=== PATIENT | female | born 1950 | race Hispanic/Latino ===

== ENCOUNTER 2017-11-23 11:32 | Emergency (ER) | payer OTHER ==
[2017-11-23 12:31] LABS: Absolute Lymphocytes (CBC) 2.1 K/uL (0.7-4.9); Absolute Monocytes 0.5 K/uL (0.1-1.3); Absolute Neutrophil 7.5 K/uL (1.8-8.0); Basophils % 0.8 % (0-1.3); Eosinophils % 1.4 % (0-4.4); Hematocrit 38.9 % (36.0-45.0); Lymphocytes % 20.4 % (15.3-44.8); MCH 28.2 pg (27.0-35.0); MCV 85.3 fL (80-100); MPV 7.7 fL (7.6-11.3); Monocytes % 4.9 % (3.3-12.3); RBC Red Blood Cell Count 4.56 M/uL (3.86-4.86)
[2017-11-23] MEDS ORDERED: MORPHINE 4 MG/ML SYR ONE (12:34)
[2017-11-23] MEDS ORDERED: ONDANSETRON 4 MG/2 ML VIAL ONE (12:34)
[2017-11-23 12:37] LABS: Protime INR 0.98
--- NOTE | 2017-11-23 12:54 | RAD REPORT ---
EXAM DESCRIPTION: RAD - Chest Single View - 11/23/2017 12:50 pm CLINICAL HISTORY: epigastric pain, SOB Chest pain. COMPARISON: Chest Pa And Lat (2 Views) dated 02/26/2017; Chest Single View dated 02/23/2017; CHEST SIN GLE VIEW dated 05/07/2015; CHEST SINGLE VIEW dated 05/06/2015 FINDINGS: Portable technique limits examination quality. The lungs are grossly clear. The heart is normal in size. No displaced fractures. IMPRESSION: No acute intrathoracic process suspected.
[2017-11-23 12:57] LABS: ALT/SGPT 16 U/L (12-78); AST/SGOT 14 U/L (15-37); Albumin 3.3 g/dL (3.4-5.0); Alkaline Phosphatase 132 U/L (45-117); BUN Blood Urea Nitrogen 20 mg/dL (7-18); Bicarbonate 28 mmol/L (21-32); Bilirubin Direct < 0.1 mg/dL (0-0.2); Bilirubin Total 0.4 mg/dL (0.2-1.0); CKMB Creatine Kinase MB 1.2 ng/mL (0.3-3.6); Creatine Phosphokinase 65 U/L (26-192); Glucose Level 290 mg/dL (74-106); Magnesium 1.7 mg/dL (1.8-2.4); Potassium 3.7 mmol/L (3.5-5.1); Protein, Total 7.2 g/dL (6.4-8.2); Sodium Level 133 mmol/L (136-145)
--- NOTE | 2017-11-23 14:35 | RAD REPORT ---
EXAM DESCRIPTION: CT - Abdomen Pelvis W Contrast - 11/23/2017 2:16 pm CLINICAL HISTORY: Abdominal pain. Epigastric pain for 3 weeks COMPARISON: 2014 TECHNIQUE: Computed axial tomography of the abdomen and pelvis was obtained. 100 cc Isovue-300 is ad ministered intravenously. Oral contrast was given. All CT scans are performed using dose optimization technique as appropriate and may include automated exposure control or mA/KV adjustment according to patient size. FINDINGS: The liver, spleen, pancreas, and right adrenal appear unremarkable. A 17 millimeter left adrenal mass is unchanged probably an adenoma A 4.8 centimeter left renal cyst is without significant change. Tiny right renal cyst is present. Diverticula stem from the colon without evidence of diverticulitis. The appendix is not seen. No stranding is noted adjacent to the cecum. An adnexal mass is not noted. Spondylosis involves lumbar spine resulting in spinal stenosis IMPRESSION: No acute abnormality is displayed
[2017-11-23] MEDS ORDERED: LIDOCAINE VISCOUS 2% SOLN 15 ML UDC ONE (14:59)
[2017-11-23] MEDS ORDERED: MAGNE/ALUM HYDROXD 30 ML UCUP ONE (14:59)
[2017-11-23] MEDS ORDERED: NA CHLORIDE 0.9% 500 ML ONE (15:56)
--- NOTE | 2017-11-23 16:23 | ER ---
Nurse's Notes [facility] Name: Mukul Larson Age: 67 yrs Sex: Female : 1950 Arrival Date: 11/23/2017 Time: 11:35 Bed 7 Private MD: Mick Mauricio E Diagnosis: Epigastric pain Presentation: 11/23 11:44 Presenting complaint: Patient states: epigastric pain x a few weeks, started off sv intermittently and now remains constant. Denies n/v/d/fever. Transition of care: patient was not received from another setting of care. Onset of symptoms was November 2017. Risk Assessment: Do you want to hurt yourself or someone else? Patient reports no desire to harm self or others. Care prior to arrival: None. 11:44 Method Of Arrival: Ambulatory sv 11:44 Acuity: APOLONIA 3 sv 11:59 Initial Sepsis Screen: Does the patient meet any 2 criteria? No. Patient's initial hj sepsis screen is negative. Does the patient have a suspected source of infection? No. Patient's initial sepsis screen is negative. Triage Assessment: 11:58 General: Appears in no apparent distress. uncomfortable, Behavior is calm, cooperative, hj appropriate for age. Pain: Complains of pain in abdomen. GI: Reports upper abdominal pain. 11:58 EENT: No signs and/or symptoms were reported regarding the EENT system. Neuro: Level of hj Consciousness is awake, alert, obeys commands, Oriented to person, place, time, situation, Appropriate for age. Cardiovascular: Capillary refill < 3 seconds Patient's skin is warm and dry. Respiratory: Airway is patent Respiratory effort is even, unlabored, Respiratory pattern is regular, symmetrical. : No signs and/or symptoms were reported regarding the genitourinary system. Derm: No signs and/or symptoms reported regarding the dermatologic system. Musculoskeletal: No signs and/or symptoms reported regarding the musculoskeletal system. Historical: - Allergies: 11:47 steroids; sv - PMHx: 11:47 Anxiety; CAD; CHF; CVA; Diabetes - NIDDM; High Cholesterol; Hypertension; sv - PSHx: 11:47 carotid stents; leg stents; Cholecystectomy; sv - Immunization history:: Adult Immunizations up to date. - Social history:: Smoking status: Patient uses tobacco products, denies chronic smoking, but will smoke occasionally. - Ebola Screening: : No symptoms or risks identified at this time. Screenin:58 Abuse screen: Denies threats or abuse. Denies injuries from another. Nutritional hj screening: No deficits noted. Tuberculosis screening: No symptoms or risk factors identified. Fall Risk None identified. Assessment: 11:59 GI: Bowel sounds present X 4 quads. Abdomen is tender to palpation. hj 12:30 Reassessment: Patient and/or family updated on plan of care and expected duration. Pain hj level reassessed. Patient is alert, oriented x 3, equal unlabored respirations, skin warm/dry/pink. awaiting results;. 13:16 Reassessment: called CT ; finished contrast 1244;. hj 14:30 Reassessment: Patient and/or family updated on plan of care and expected duration. Pain hj level reassessed. Patient is alert, oriented x 3, equal unlabored respirations, skin warm/dry/pink. Patient states feeling better. 15:11 Reassessment: Patient and/or family updated on plan of care and expected duration. Pain hj level reassessed. Patient is alert, oriented x 3, equal unlabored respirations, skin warm/dry/pink. family with pt; Patient states symptoms have improved. 15:42 Reassessment: Patient and/or family updated on plan of care and expected duration. Pain hj level reassessed. Patient is alert, oriented x 3, equal unlabored respirations, skin warm/dry/pink. awaiting POC;. Vital Signs: 11:47 BP 109 / 53; Pulse 80; Resp 18; Temp 98.2; Pulse Ox 94% ; Weight 56.7 kg; Height 4 ft. sv 11 in. (149.86 cm); Pain 9/10; 12:30 BP 100 / 60; Pulse 67; Resp 18; Pulse Ox 100% on R/A; hj 13:15 BP 106 / 90; Pulse 79; Resp 18; Pulse Ox 100% on R/A; hj 14:30 BP 99 / 69; Pulse 69; Resp 18; Pulse Ox 96% on R/A; hj 15:11 BP 110 / 70; Pulse 65; Resp 18; Pulse Ox 98% on R/A; hj 15:43 BP 100 / 69; Pulse 69; Resp 18; Pulse Ox 97% on R/A; hj 16:20 BP 99 / 79; Pulse 70; Resp 18; Pulse Ox 97% on R/A; hj 11:47 Body Mass Index 25.25 (56.70 kg, 149.86 cm) sv ED Course: 11:35 Patient arrived in ED. mr 11:36 Mick Mauricio MD is Private Physician. mr 11:46 Triage completed. sv 11:48 Arm band placed on left wrist. sv 11:53 Foreign Parker PA is PHCP. jmm 11:53 Theodore Cosby MD is Attending Physician. jmm 11:55 Foreign Parker PA is PHCP. jmm 11:55 Theodore Cosby MD is Attending Physician. jmm 11:58 Ja Guaman, CONCEPCIÓN is Primary Nurse. hj 11:59 Patient has correct armband on for positive identification. Placed in gown. Bed in low hj position. Call light in reach. Side rails up X 1. 12:40 EKG done, by x ray technician. reviewed by Foreign MÁRQUEZ. at1 12:40 Inserted saline lock: 20 gauge in left forearm, using aseptic technique. hj 12:46 X-ray completed. Portable x-ray completed in exam room. Patient tolerated procedure mh1 well. 12:50 XRAY Chest (1 view) In Process Unspecified. EDMS 14:[address] via wheelchair. nj 14:14 CT completed. Patient tolerated procedure well. Patient moved back from CT. nj 14:17 CT Abd/Pelvis - W/Contrast In Process Unspecified. EDMS 16:21 Oneil Jorgensen MD is Referral Physician. jmm 16:29 No provider procedures requiring assistance completed. IV discontinued, intact, hj bleeding controlled, No redness/swelling at site. Pressure dressing applied. Administered Medications: 12:35 Drug: morphine 2 mg Route: IVP; Site: right forearm; aj 15:14 Follow up: Response: No adverse reaction; Pain is decreased hj 12:36 Drug: Zofran 4 mg Route: IVP; Site: right forearm; aj 15:13 Follow up: Response: No adverse reaction; Nausea is decreased hj 14:45 Drug: GI Cocktail without - (Maalox Suspension 30 ml, Lidocaine Liquid 2 % 15 hj ml) Route: PO; 15:13 Follow up: Response: No adverse reaction hj 15:50 Drug: NS 0.9% 500 ml Route: IV; Rate: bolus; Site: right forearm; 15:57 Follow up: IV Status: Completed infusion Outcome: 16:22 Discharge ordered by MD. sea 16:29 Discharged to home via wheelchair, with family. 16:29 Condition: stable 16:29 Discharge instructions given to patient, family, Instructed on discharge instructions, follow up and referral plans. medication usage, Demonstrated understanding of instructions, follow-up care, medications, Prescriptions given X 1. 16:38 Patient left the ED. Signatures: Dispatcher [employer] EDVianey Fink, RN Yadira Abdi, CONCEPCIÓN RN Foreign Damon PA PA jmm Rivera, Maria mr RlCarissa 1 Yadira mera, golf professional EKG [facility]1 Ja Guaman RN RN hj Jordan, Nathan nj
--- NOTE | 2017-11-23 16:23 | EDPHYS ---
Physician Documentation [facility] Name: Mukul Larson Age: 67 yrs Sex: Female : 1950 Arrival Date: 11/23/2017 Time: 11:35 Bed 7 Private MD: Mick Mauricio E ED Physician Theodore Cosby HPI: 11/23 12:10 This 67 yrs old Female presents to ER via Ambulatory with complaints of jmm Abdominal Pain. 12:10 The patient presents with abdominal pain in the epigastric area. Onset: The jmm symptoms/episode began/occurred gradually, 2 week(s) ago. The symptoms do not radiate. Associated signs and symptoms: Pertinent positives: diarrhea. The symptoms are described as achy. This is a 67 year olf female with a history of epigastric abdominal pain and and diarrhea beginning approx 3 weeks ago. Patient states her symptoms are worsened after eating. Surgical history includes appendectomy and cholecystectomy. . Historical: - Allergies: 11:47 steroids; sv - PMHx: 11:47 Anxiety; CAD; CHF; CVA; Diabetes - NIDDM; High Cholesterol; Hypertension; sv - PSHx: 11:47 carotid stents; leg stents; Cholecystectomy; sv - Immunization history:: Adult Immunizations up to date. - Social history:: Smoking status: Patient uses tobacco products, denies chronic smoking, but will smoke occasionally. - Ebola Screening: : No symptoms or risks identified at this time. ROS: 12:10 Constitutional: Negative for fever, chills, and weight loss, Cardiovascular: Negative jmm for chest pain, palpitations, and edema. 12:10 Back: Negative for injury and pain, : Negative for injury, bleeding, discharge, and swelling, MS/Extremity: Negative for injury and deformity, Skin: Negative for injury, rash, and discoloration, Neuro: Negative for headache, weakness, numbness, tingling, and seizure. 12:10 Respiratory: Positive for shortness of breath. 12:10 Abdomen/GI: Positive for abdominal pain, diarrhea. 12:10 All other systems are negative. Exam: 12:10 Head/Face: atraumatic. Chest/axilla: Normal chest wall appearance and motion. jmm Nontender with no deformity. No lesions are appreciated. Cardiovascular: Regular rate and rhythm. No gallops, murmurs, or rubs. Full/Equal distal pulses. Respiratory: Lungs have equal breath sounds bilaterally, clear to auscultation. No rales, rhonchi or wheezes noted. No increased work of breathing, no retractions or nasal flaring. 12:10 Constitutional: The patient appears in no acute distress, alert, awake. 12:10 Abdomen/GI: Inspection: abdomen appears normal, Bowel sounds: normal, Palpation: soft, mild abdominal tenderness, in the epigastric area. 12:10 Back: ROM is normal. 12:10 Musculoskeletal/extremity: ROM: intact in all extremities. 12:10 Skin: Appearance: Color: normal in color. 12:10 Neuro: Orientation: is normal, Mentation: is normal, Memory: is normal. 12:10 Psych: Behavior/mood is pleasant, cooperative. Vital Signs: 11:47 BP 109 / 53; Pulse 80; Resp 18; Temp 98.2; Pulse Ox 94% ; Weight 56.7 kg; Height 4 ft. sv 11 in. (149.86 cm); Pain 9/10; 12:30 BP 100 / 60; Pulse 67; Resp 18; Pulse Ox 100% on R/A; hj 13:15 BP 106 / 90; Pulse 79; Resp 18; Pulse Ox 100% on R/A; hj 14:30 BP 99 / 69; Pulse 69; Resp 18; Pulse Ox 96% on R/A; hj 15:11 BP 110 / 70; Pulse 65; Resp 18; Pulse Ox 98% on R/A; hj 15:43 BP 100 / 69; Pulse 69; Resp 18; Pulse Ox 97% on R/A; hj 16:20 BP 99 / 79; Pulse 70; Resp 18; Pulse Ox 97% on R/A; hj 11:47 Body Mass Index 25.25 (56.70 kg, 149.86 cm) sv MDM: 12:05 Patient medically screened. [facility] 16:00 Data reviewed: vital signs, nurses notes, lab test result(s), EKG, radiologic studies. [facility] 17:01 Counseling: I had a detailed discussion with the patient and/or guardian regarding: the [facility] historical points, exam findings, and any diagnostic results supporting the discharge/admit diagnosis, lab results, radiology results. Response to treatment: the patient's symptoms have resolved after treatment. ED course: The patients symptoms are relieved with GI cocktail. Imaging studies negative. Cardiac enzymes and EKG unremarkable. I do not currently suspect atypical cardiac presentation. Patient is advised to follow up with GI and family otherwise given strict return precautions for worsening symptoms. Family understood and agrees with the plan of care. . 11/23 12:07 Order name: Basic Metabolic Panel; Complete Time: 12:58 [facility] 11/23 12:07 Order name: CBC with Diff; Complete Time: 12:49 [facility] 11/23 12:07 Order name: Ckmb; Complete Time: 12:58 [facility] 11/23 12:07 Order name: CPK; Complete Time: 12:58 [facility] 11/23 12:07 Order name: LFT's; Complete Time: 12:58 [facility] 11/23 12:07 Order name: Magnesium; Complete Time: 12:58 [facility] 11/23 12:07 Order name: PT-INR; Complete Time: 12:49 [facility] 11/23 12:07 Order name: Ptt, Activated; Complete Time: 12:49 [facility] 11/23 12:07 Order name: Troponin (emerg Dept Use Only); Complete Time: 12:58 [facility] 11/23 12:07 Order name: XRAY Chest (1 view); Complete Time: 12:58 [facility] 11/23 12:07 Order name: CT Abd/Pelvis - W/Contrast; Complete Time: 14:44 [facility] 11/23 12:07 Order name: EKG; Complete Time: 12:07 [facility] 11/23 12:07 Order name: Cardiac monitoring; Complete Time: 12:27 [facility] 11/23 12:07 Order name: EKG - Nurse/Tech; Complete Time: 12:27 [facility] 11/23 12:07 Order name: IV Saline Lock; Complete Time: 12:31 [facility] 11/23 12:07 Order name: Labs collected and sent; Complete Time: 12:31 [facility] 11/23 12:07 Order name: O2 Per Protocol; Complete Time: 12:27 [facility] 11/23 12:07 Order name: O2 Sat Monitoring; Complete Time: 12:27 [facility] 11/23 12:07 Order name: Urine Dipstick-Ancillary (obtain specimen); Complete Time: 12:27 [facility] Administered Medications: 12:35 Drug: morphine 2 mg Route: IVP; Site: right forearm; aj 15:14 Follow up: Response: No adverse reaction; Pain is decreased hj 12:36 Drug: Zofran 4 mg Route: IVP; Site: right forearm; aj 15:13 Follow up: Response: No adverse reaction; Nausea is decreased hj 14:45 Drug: GI Cocktail without - (Maalox Suspension 30 ml, Lidocaine Liquid 2 % 15 hj ml) Route: PO; 15:13 Follow up: Response: No adverse reaction hj 15:50 Drug: NS 0.9% 500 ml Route: IV; Rate: bolus; Site: right forearm; hj 15:57 Follow up: IV Status: Completed infusion hj Disposition: 18:29 Co-signature as Attending Physician, Theodore Cosby MD. rn Disposition: 11/23/17 16:22 Discharged to Home. Impression: Epigastric pain. - Condition is Stable. - Discharge Instructions: Abdominal Pain, Adult. - Prescriptions for Pepcid 20 mg Oral Tablet - take 1 tablet by ORAL route every 12 hours for 10 days; 20 tablet. - Medication Reconciliation Form, Thank You Letter, Antibiotic Education, Prescription Opioid Use form. - Follow up: Oneil Jorgensen MD; When: 2 - 3 days; Reason: Continuance of care. Signatures: Dispatcher [employer] EDVianey Fink RN Yadira Abdi RN Foreign Young PA PA [facility] Theodore Cosby MD MD rn Joaquin, Henry, RN RN Corrections: (The following items were deleted from the chart) 16:38 16:22 11/23/2017 16:22 Discharged to Home. Impression: Epigastric pain. Condition is hj Stable. Forms are Medication Reconciliation Form, Thank You Letter, Antibiotic Education, Prescription Opioid Use. Follow up: Oneil Jorgensen; When: 2 - 3 days; Reason: Continuance of care. sea
[2017-11-23 17:19] VITALS: TEMP 98.2
[2017-11-23 17:25] VITALS: O2SAT 97
[2017-11-23 17:27] VITALS: BP 99/79
--- NOTE | 2017-11-23 17:32 | EKG ---
Test Date: 2017-11-23 Test Time: 12:18:21 Supervisor Statement Clerks: THI MEASUREMENT RESULTS: Intervals: Rate: 76 MS: 134 QRSD: 72 QT: 400 QTc: 450 [place]: P: 61 MS: 134 QRS: 41 T: 69 INTERPRETIVE STATEMENTS: Normal sinus rhythm Normal ECG Compared to ECG 02/23/2017 16:31:00 Sinus bradycardia no longer present Electronically Signed On 11-23-17 17:30:20 CDT by Adam Lynch
== END 2017-11-23 16:38 | disposition home or self-care (01) ==
LOC: ER 11:32
DX: R10.13 Epigastric pain (principal); I10 Essential (primary) hypertension; Z72.0 Tobacco use; Z88.8 Allergy status to other drugs, medicaments and biological substances; Z95.818 Presence of other cardiac implants and grafts
CPT/HCPCS: 36415; 71045; 74177; 80048; 80076; 82550; 82553; 83735; 84484; 85025; 85610; 85730; 93005; 96374; 96375; 99284; J2405; Q9967

== ENCOUNTER 2021-01-02 17:42 | Emergency (ER) | payer OTHER ==
--- OUTSIDE RECORDS SUMMARY | 2021-01-02 17:44 | XMS REPORT | Continuity of Care Document ---
:1950 Author Organization [facility] t Address [address] [place] [address] Care Team Providers Name Role Phone Doctor Unassigned, Name Attending Clinician Unavailable Problems This patient has no known problems. Allergies, Adverse Reactions, Alerts This patient has no known allergies or adverse reactions. Medications This patient has no known medications. Procedures This patient has no known procedures. Encounters Start End Encounter Admission Attending Care Care Encounter Source Date/Time Date/Time Type Type Clinicians Facility Department ID 2019-12-04 2019-12-04 Orders Doctor NATE [id number] 00:00:00 00:00:00 Only UnassignedLUPILLO [id number] [place] [facility] [id number] Results This patient has no known results.
[2021-01-02] MEDS ORDERED: NA CHLORIDE 0.9% 1,000 ML ONE (18:26)
[2021-01-02] MEDS ORDERED: DIPHENHYDRAMINE 50 MG/ML VIAL ONE (18:26)
[2021-01-02] MEDS ORDERED: FAMOTIDINE 20 MG/2 ML VIAL IV ONE (18:26)
[2021-01-02] MEDS ORDERED: EPINEPHRINE/PF 1 MG/ML AMP ONE (18:26)
[2021-01-02] MEDS ORDERED: DIAZEPAM 10 MG/2 ML INJ SYRINGE ONE ×2 (19:01→20:11)
[2021-01-02] MEDS ORDERED: dexAMETHasone 10 MG/ML VIAL ONE (19:01)
--- NOTE | 2021-01-02 22:42 | EDPHYS ---
Physician Documentation [facility] Name: Mukul Larson Age: 70 yrs Sex: Female : 1950 Arrival Date: 01/02/2021 Time: 17:44 Bed 18 Private MD: ED Physician Theodore Cosby HPI: 01/02 17:58 This 70 yrs old Female presents to ER via Ambulatory with complaints of Wasp jmm Sting, Allergic Reaction. 17:58 Onset: The symptoms/episode began/occurred acutely, 1.5 hour(s) ago. jmm 17:58 Associated signs and symptoms: Pertinent positives: hives, shortness of breath, jmm swelling. Possible causes: wasp sting. The patient has experienced a previous episode. Historical: - Allergies: 17:53 steroids; ll1 17:53 PENICILLINS; ll1 - PMHx: 17:53 CVA; Diabetes - NIDDM; High Cholesterol; Hypertension; CHF; Anxiety; CAD; ll1 - PSHx: 17:53 None; ll1 - Immunization history:: Client reports having NOT received the Covid vaccine. Flu vaccine is not up to date. - Social history:: Smoking status: Patient reports the use of cigarette tobacco products, smokes one-half pack cigarettes per day. ROS: 17:58 Constitutional: Negative for fever, chills, and weight loss, Cardiovascular: Negative jmm for chest pain, palpitations, and edema. 17:58 ENT: Positive for sore throat. 17:58 Respiratory: Positive for shortness of breath. 17:58 Abdomen/GI: Negative for vomiting. 17:58 All other systems are negative. Exam: 17:58 Constitutional: This is a well developed, well nourished patient who is awake, alert, jmm and in no acute distress. Head/Face: atraumatic. Eyes: EOMI, no conjunctival erythema appreciated ENT: Moist Mucus Membranes Neck: Trachea midline, Supple Chest/axilla: Normal chest wall appearance and motion. Cardiovascular: Regular rate and rhythm. No edema appreciated Respiratory: Normal respirations, no respiratory distress appreciated Abdomen/GI: Non distended, soft Back: Normal ROM Skin: General appearance color normal MS/ Extremity: Moves all extremities, no obvious deformities appreciated, no edema noted to the lower extremities Neuro: Awake and alert, normal gait Psych: Behavior is normal, Mood is normal, Patient is cooperative and pleasant Vital Signs: 17:49 BP 91 / 53; Pulse 77; Resp 22; Temp 97.6; Pulse Ox 95% ; Weight 50.8 kg; Height 4 ft. ll1 10 in. (147.32 cm); Pain 9/10; 19:33 BP 121 / 64; Pulse 74; Resp 20; Temp 97.6; Pulse Ox 99% on R/A; em 21:57 BP 116 / 57; Pulse 67; Resp 22; Pulse Ox 95% on R/A; Pain 0/10; ld1 17:49 Body Mass Index 23.41 (50.80 kg, 147.32 cm) ll1 MDM: 18:04 Patient medically screened. sea 22:40 Data reviewed: vital signs, nurses notes. Counseling: I had a detailed discussion with sea the patient and/or guardian regarding: the historical points, exam findings, and any diagnostic results supporting the discharge/admit diagnosis, the need for outpatient follow up, to return to the emergency department if symptoms worsen or persist or if there are any questions or concerns that arise at home. ED course: No edema is no edema is appreciated to the posterior pharynx. Patient observed for approximately 4 and half hours with no adverse reaction after administration of epinephrine. Patient will be prescribed an EpiPen along with steroids and advised to follow-up with PCP or mobility architect for further evaluation. Patient is otherwise given strict return precautions. Patient understood and agrees with plan of care. 01/02 17:58 Order name: Saline Lock; Complete Time: 18:25 [facility] 01/02 18:18 Order name: Cardiac monitoring; Complete Time: 18:25 [facility] Administered Medications: 18:15 Drug: EPINEPHrine 1mg/mL 1:1,000 0.4 ml Route: Sub-Q; Site: abdomen; bp 18:44 Follow up: Response: No adverse reaction bp 18:15 Drug: NS 0.9% 1000 ml Route: IV; Rate: 1 bolus; Site: right forearm; bp 19:35 Follow up: IV Status: Completed infusion; IV Intake: 1000ml em 18:15 Drug: diphenhydrAMINE 25 mg Route: IVP; Site: right forearm; bp 18:44 Follow up: Response: No adverse reaction bp 18:15 Drug: Pepcid (famotidine) 20 mg Route: IVP; Site: right forearm; bp 18:44 Follow up: Response: No adverse reaction bp 18:30 Drug: Decadron - Dexamethasone 10 mg Route: IVP; Site: right forearm; bp 18:45 Follow up: Response: No adverse reaction bp 18:30 Drug: NS 0.9% 500 ml Route: IV; Rate: bolus; Site: right forearm; bp 19:35 Follow up: IV Status: Completed infusion; IV Intake: 500ml em 18:40 Drug: Valium (diazepam) 2 mg Route: IVP; Site: right forearm; bp 18:45 Follow up: Response: No adverse reaction bp 19:45 Not Given (Physician Discretion): propranoloL 10 mg PO once em 19:45 Not Given (Physician Discretion): rOPINIRole 0.25 mg PO once em 19:54 Not Given (Other Intervention Used): rOPINIRole 5 mg PO once em 19:54 Drug: Valium (diazepam) 5 mg Route: IVP; Site: right forearm; em Disposition Summary: 01/02/21 22:41 Discharge Ordered Location: Home [facility] Condition: Stable [facility] Diagnosis - Allergic Reaction [facility] Followup: [facility] - With: Private Physician - When: 2 - 3 days - Reason: Recheck today's complaints, Continuance of care, Re-evaluation by your physician Discharge Instructions: - Discharge Summary Sheet [facility] - Bee, Wasp, or Hornet Sting, Adult [facility] Forms: - Medication Reconciliation Form [facility] - Thank You Letter [facility] - Antibiotic Education [facility] - Prescription Opioid Use [facility] Prescriptions: - EpiPen 0.3 mg/0.3 mL Injection auto-injector - inject 0.3 milliliter by INTRAMUSCULAR route as directed as needed for [facility] anaphylaxis; 1 Unspecified; Refills: 0, Product Selection Permitted - Hydroxyzine HCl 25 mg Oral Tablet - take 1 tablet by ORAL route every 6 hours As needed; 30 tablet; Refills: 0, [facility] Product Selection Permitted - Prednisone 20 mg Oral Tablet - take 3 tablets by ORAL route once daily for 5 days; 15 tablet; Refills: 0, [facility] Product Selection Permitted Signatures: Foreign aPrker PA PA jmm Munoz, Edgar RN Mayo Ceballos RN Katina Blakely RN RN ll1
--- NOTE | 2021-01-02 22:42 | ER ---
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 Rash with hives to ll1 back. + SOB, tried inhaler, didn't help a lot. Coronavirus screen: Client denies travel out of the [place] in the last 14 days. At this time, the client does not indicate any symptoms associated with coronavirus-19. Ebola Screen: Patient denies travel to an Ebola-affected area in the 21 days before illness onset. Onset: The symptoms/episode began/occurred 1.5 hour(s) ago. Anaphylaxis evaluation, the patient reports or I have noted the following symptoms which indicate a significant risk of anaphylaxis: hypotension lightheadedness shortness of breath tachypnea urticaria. Initial Sepsis Screen: Does the patient meet any 2 criteria? RR > 20 per min. No. Patient's initial sepsis screen is negative. Does the patient have a suspected source of infection? Yes: Skin breakdown/wound. Risk Assessment: Do you want to hurt yourself or someone else? Patient reports no desire to harm self or others. Onset of symptoms was January 02, 2021. 17:49 Method Of Arrival: Ambulatory ll1 17:49 Acuity: APOLONIA 2 ll1 Triage Assessment: 18:00 General: Appears distressed, uncomfortable, Behavior is cooperative, appropriate for bp age, anxious. Pain: Denies pain. EENT: No deficits noted. Neuro: No deficits noted. Cardiovascular: No deficits noted. Respiratory: Airway is patent Respiratory effort is even, unlabored, Respiratory pattern is regular, symmetrical. GI: No signs and/or symptoms were reported involving the gastrointestinal system. : No signs and/or symptoms were reported regarding the genitourinary system. Derm: Rash noted that is urticaria. Musculoskeletal: No deficits noted. Historical: - Allergies: 17:53 steroids; ll1 17:53 PENICILLINS; ll1 - PMHx: 17:53 CVA; Diabetes - NIDDM; High Cholesterol; Hypertension; CHF; Anxiety; CAD; ll1 - PSHx: 17:53 None; ll1 - Immunization history:: Client reports having NOT received the Covid vaccine. Flu vaccine is not up to date. - Social history:: Smoking status: Patient reports the use of cigarette tobacco products, smokes one-half pack cigarettes per day. Screenin:26 Abuse screen: Denies threats or abuse. Denies injuries from another. Nutritional bp screening: No deficits noted. Tuberculosis screening: No symptoms or risk factors identified. Fall Risk None identified. Assessment: 18:00 General: SEE TRIAGE NOTE. Respiratory: Airway is patent Respiratory effort is even, bp unlabored, Respiratory pattern is regular, Breath sounds are clear bilaterally. 19:20 Reassessment: reports restless legs, takes ropinirole but we do not carry medication, em provider notified. 21:57 Reassessment: Patient appears in no apparent distress at this time. Patient is alert, ld1 oriented x 3, equal unlabored respirations, skin warm/dry/pink. 23:09 Reassessment: Patient appears in no apparent distress at this time. Patient and/or ld1 family updated on plan of care and expected duration. Pain level reassessed. Patient is alert, oriented x 3, equal unlabored respirations, skin warm/dry/pink. Vital Signs: 17:49 BP 91 / 53; Pulse 77; Resp 22; Temp 97.6; Pulse Ox 95% ; Weight 50.8 kg; Height 4 ft. ll1 10 in. (147.32 cm); Pain 9/10; 19:33 BP 121 / 64; Pulse 74; Resp 20; Temp 97.6; Pulse Ox 99% on R/A; em 21:57 BP 116 / 57; Pulse 67; Resp 22; Pulse Ox 95% on R/A; Pain 0/10; ld1 17:49 Body Mass Index 23.41 (50.80 kg, 147.32 cm) ll1 ED Course: 17:44 Patient arrived in ED. ds1 17:52 Triage completed. ll1 17:52 Arm band placed on. ll1 17:57 Foreign Parker PA is PHCP. [facility] 17:57 Theodore Cosby MD is Attending Physician. [facility] 17:57 Patient placed in an exam room, on a stretcher. ll1 18:00 Mayo Espinosa, RN is Primary Nurse. bp 18:25 Inserted saline lock: 20 gauge in right forearm, using aseptic technique. bp 18:26 Patient has correct armband on for positive identification. Bed in low position. Call bp light in reach. Side rails up X2. Adult w/ patient. 19:30 Primary Nurse role handed off by Mayo Espinosa RN mw2 19:30 Mayo Espinosa RN is Primary Nurse. bp 23:09 No provider procedures requiring assistance completed. IV discontinued, intact, ld1 bleeding controlled, No redness/swelling at site. Administered Medications: 18:15 Drug: EPINEPHrine 1mg/mL 1:1,000 0.4 ml Route: Sub-Q; Site: abdomen; bp 18:44 Follow up: Response: No adverse reaction bp 18:15 Drug: NS 0.9% 1000 ml Route: IV; Rate: 1 bolus; Site: right forearm; bp 19:35 Follow up: IV Status: Completed infusion; IV Intake: 1000ml em 18:15 Drug: diphenhydrAMINE 25 mg Route: IVP; Site: right forearm; bp 18:44 Follow up: Response: No adverse reaction bp 18:15 Drug: Pepcid (famotidine) 20 mg Route: IVP; Site: right forearm; bp 18:44 Follow up: Response: No adverse reaction bp 18:30 Drug: Decadron - Dexamethasone 10 mg Route: IVP; Site: right forearm; bp 18:45 Follow up: Response: No adverse reaction bp 18:30 Drug: NS 0.9% 500 ml Route: IV; Rate: bolus; Site: right forearm; bp 19:35 Follow up: IV Status: Completed infusion; IV Intake: 500ml em 18:40 Drug: Valium (diazepam) 2 mg Route: IVP; Site: right forearm; bp 18:45 Follow up: Response: No adverse reaction bp 19:45 Not Given (Physician Discretion): propranoloL 10 mg PO once em 19:45 Not Given (Physician Discretion): rOPINIRole 0.25 mg PO once em 19:54 Not Given (Other Intervention Used): rOPINIRole 5 mg PO once em 19:54 Drug: Valium (diazepam) 5 mg Route: IVP; Site: right forearm; em Intake: 19:35 IV: 500ml; Total: 500ml. em 19:35 IV: 1000ml; Total: 1500ml. em Outcome: 22:41 Discharge ordered by . sea 23:09 Discharged to home via wheelchair, with family. ld1 23:09 Condition: stable 23:09 Discharge instructions given to patient, family, Instructed on discharge instructions, follow up and referral plans. medication usage, Demonstrated understanding of instructions, follow-up care, medications, Prescriptions given X 3. 23:10 Patient left the ED. ld1 Signatures: Foreign Parker PA PA jmm Munoz, Edgar, RN RN Patricia Mariscal ds1 Mayo Espinosa RN RN Pavan Morales mw2 Katina Iverson RN RN ll1 Isaeblla Conde RN RN ld1
[2021-01-02 23:31] VITALS: TEMP 97.6
[2021-01-02 23:35] VITALS: BP 116/57; O2SAT 95
== END 2021-01-02 23:10 | disposition home or self-care (01) ==
LOC: ER 17:42
DX: T63.461A Toxic effect of venom of wasps, accidental (unintentional), initial encounter (principal); T78.49XA Other allergy, initial encounter; F17.210 Nicotine dependence, cigarettes, uncomplicated; Z86.73 Personal history of transient ischemic attack (TIA), and cerebral infarction without residual deficits; E11.9 Type 2 diabetes mellitus without complications; E78.00 Pure hypercholesterolemia, unspecified; I11.0 Hypertensive heart disease with heart failure; I50.9 Heart failure, unspecified; F41.9 Anxiety disorder, unspecified; I25.10 Atherosclerotic heart disease of native coronary artery without angina pectoris
CPT/HCPCS: J0171; J1200; J3360 ×2; J1100; J7030

== ENCOUNTER 2021-03-07 12:10 | Day surgery (SDC) | payer OTHER ==
--- NOTE | 2021-03-04 16:13 | RAD REPORT ---
EXAM DESCRIPTION: RAD - Chest Pa And Lat (2 Views) - 03/04/2021 4:07 pm CLINICAL HISTORY: pre-op Chest pain. COMPARISON: Chest Pa And Lat (2 Views) dated 08/05/2020; Chest Single View dated 11/23/2017; Chest Pa A nd Lat (2 Views) dated 02/26/2017; Chest Single View dated 02/23/2017 FINDINGS: The lungs are diffusely emphysematous but clear. The heart is normal in size. No displaced fractures. IMPRESSION: Prominent COPD.
[2021-03-04 16:40] LABS: Hematocrit 40.7 % (36.0-45.0); RBC Red Blood Cell Count 4.46 M/uL (3.86-4.86)
[2021-03-04 16:41] LABS: Absolute Lymphocytes (CBC) 3.5 K/uL (0.7-4.9); Lymphocytes % 32.8 % (15.3-44.8); MPV 8.4 fL (7.6-11.3)
[2021-03-04 16:44] LABS: Protime INR 0.97
[2021-03-04 16:50] LABS: Potassium 4.5 mmol/L (3.5-5.1)
[2021-03-07] MEDS ORDERED: NA CHLORIDE 0.9% 500 ML ONE ×2 (13:49→18:30)
[2021-03-07] MEDS ORDERED: HEPA 1000U/500MLS 2,000 UNIT/1,000 ML BAG IV ONE (15:19)
[2021-03-07] MEDS ORDERED: LIDOCAINE 1% 20 ML MDV ONE (15:19)
[2021-03-07] MEDS ORDERED: MIDAZOLAM HCL 2 MG/2 ML INJ ONE (15:27)
[2021-03-07] MEDS ORDERED: FENTANYL CITR 100 MCG/2 ML ONE (15:27)
[2021-03-07] MEDS ORDERED: ATROPINE SULF 1 MG/10 ML SYR IV ONE (15:28)
[2021-03-07] MEDS ORDERED: HEPARIN 5000 UNIT/ML 1 ML VIAL ONE (15:28)
[2021-03-07] MEDS ORDERED: VERAPAMIL HCL 10 MG/4 ML VIAL IV ONE (15:28)
[2021-03-07] MEDS ORDERED: CLOPIDOGREL 75 MG TABLET ONE (16:30)
[2021-03-07] MEDS ORDERED: HEPA 1000U/500MLS 1,000 UNIT/500 ML BAG IV ONE (16:33)
[2021-03-07] MEDS ORDERED: HYDRALAZINE HCL 20 MG/ML VIAL ONE (17:06)
--- NOTE | 2021-03-07 19:26 | OP ---
Date of Procedure: 03/07/2021 Surgeon: ADALBERTO ALEMAN Procedures Performed: 1.Selective coronary angiogram. 2.PCI of severe ostial proximal and mid RCA stenosis using 3.5 x 38 mm Synergy drug-eluting stent, o verlapped proximally with another 3.5 x 60 mm Synergy drug-eluting stent inflated to high pressure to give a size of 4 mm stent. 3.Distal abdominal aortogram with runoff of both lower extremities and peripheral angiogram. Indications: 1.Unstable angina. 2.Severe peripheral vascular disease with claudication. Complications: None. Bleeding: Less than 20 mL. Anesthesia: Total sedation time was 95 minutes. Description Of Procedure: After risks, benefits, and alternatives were explained, the patient agreed to procedure and signed informed consent. The patient was brought to the cardiac catheterization la boratory, prepped and draped in usual sterile fashion. Then, I accessed radial artery and tried to p ut on the wire up to the aorta; however, there was significant tortuosity to the radial access and ob tained right femoral artery access with ultrasound guidance and placed a 6-Thai [place] sheath and took a pigtail catheter diagnostic into the distal aorta and the aortogram was done and runoff all t he way to the feet. Then, I took a 6-Thai JR4 catheter into the aortic root, engaged the RCA, took standard views and exchanged for 6-Thai JL4 catheter, engaged the left main, took standard views. We then moved towards the intervention. Intervention Details: We gave systemic heparin to assure ACT level above 250 throughout the procedur e and we exchanged for a 6-Thai JR4 guide, engaged the RCA. I used the side holes guide due to sev ere ostial disease and took short Run-Through wire into the RCA and placed distally. Subsequently, w e pre-dilated lesions using NC balloon and cutting balloon due to heavily calcified lesions. We then placed a 3.5 x 38 mm Synergy drug-eluting stent, overlapped proximally with a 3.5 x [address] ug-eluting stent with good results. I removed the catheter and the wires, and the sheath was removed and manual pressure was applied with good hemostasis. Findings: 1.Left main; normal, moderate size. 2.LAD; small vessel with diffuse 10% to 20% stenosis, but no significant disease. 3.The left circumflex is very small. No significant disease. Has luminal irregularities. 4.RCA; ostial 80% and there is a proximal stent with diffuse 70% to 80% iSR and then focal heavily c alcified 80% stenosis, status post successful PCI as above. Findings of the peripheral angiogram; distal aorta, severe stenosis about 80%. Then, the right commo n iliac ostial either has about diffuse 60% to 70% and both in the right and the left common iliac al so has diffuse 50% to 60%. Both common femoral arteries have diffuse 50% to 60% and then the left an d right SFAs bilaterally are totally occluded in the ostium. There is a long stent on the left SFA t hat is totally occluded. Then, the vessels reconstitutes above the knee and there is a 3-vessel run with slow flow. However, there is a flow through the 3 vessels below the knee bilaterally from the c ollaterals. Conclusion: 1.Severe RCA disease, status post successful PCI as above. 2.Severe peripheral vascular disease including distal aorta and bilateral SFAs. We will refer to [facility] for further management on this matter. Plan: Aspirin, Plavix, and high-dose statin. Follow up with me in 1-2 weeks in the office. /GISELA Voice ID: [id number] Report ID: [id number]
[2021-03-07] MEDS ORDERED: NITROGLYCERIN 0.4 MG/TAB SL PRN (23:13)
[2021-03-07] MEDS ORDERED: ACETAMINOPHEN 325 MG TABLET PO PRN (23:13)
[2021-03-07] MEDS ORDERED: HOME MED 1 EA UNK IH PRN (23:23)
[2021-03-07] MEDS ORDERED: NA CHLORIDE 0.9% 1,000 ML IV SCH (23:45)
[2021-03-07] MEDS ORDERED: BUDESONIDE 0.5 MG/2 ML NEB IH PRN (23:48)
[2021-03-08 08:25] VITALS: BP 156/69
[2021-03-08 08:52] VITALS: TEMP 97.1
[2021-03-08 08:53] VITALS: O2SAT 100
[2021-03-08] MEDS ORDERED: hydroCHLOROthiazide 12.5 MG CAP PO SCH (09:00)
[2021-03-08] MEDS ORDERED: ASPIRIN 81 MG CHEWABLE TABLET PO SCH (09:00)
[2021-03-08] MEDS ORDERED: lisinopriL 10 MG TAB PO SCH (09:00)
[2021-03-08] MEDS ORDERED: METOPROLOL TAR 50 MG TAB PO SCH (09:00)
[2021-03-08] MEDS ORDERED: CLOPIDOGREL 75 MG TABLET PO SCH (09:00)
[2021-03-08] MEDS ORDERED: ROPINIROLE HCL 1 MG TAB PO SCH (21:00)
[2021-03-08] MEDS ORDERED: ATORVASTATIN 40 MG TAB PO SCH (21:00)
== END 2021-03-08 09:15 | disposition home or self-care (01) ==
LOC: CCL 12:10 → 2ND 15:30 → UNDOADMIN 15:30 → CCL 03-08 09:15 → UNDODISIN 03-08 09:15
PROVIDERS: ATTEND Internal Medicine
DX: I25.110 Atherosclerotic heart disease of native coronary artery with unstable angina pectoris (principal); I70.213 Atherosclerosis of native arteries of extremities with intermittent claudication, bilateral legs; I70.92 Chronic total occlusion of artery of the extremities; T82.855A Stenosis of coronary artery stent, initial encounter; T82.856A Stenosis of peripheral vascular stent, initial encounter; I70.0 Atherosclerosis of aorta; I10 Essential (primary) hypertension; E78.5 Hyperlipidemia, unspecified; E11.9 Type 2 diabetes mellitus without complications; Z79.02 Long term (current) use of antithrombotics/antiplatelets; Z20.822 Contact with and (suspected) exposure to COVID-19; Z82.49 Family history of ischemic heart disease and other diseases of the circulatory system
CPT/HCPCS: 85025; 80048; 36415; 85610; 82947; 85347 ×8; 85730; 71046; 75630; 93454; U0003; C1893; C1725; C9600; J0360; J1644 ×3; J2250; J3010; J7040 ×2; J7030

== ENCOUNTER 2021-11-03 11:00 | Day surgery (SDC) | payer OTHER ==
[2021-11-02 14:50] LABS: Hematocrit 27.4 % (36.0-45.0); Lymphocytes % 18.6 % (15.3-44.8); MPV 6.9 fL (7.6-11.3); RBC Red Blood Cell Count 3.81 M/uL (3.86-4.86)
[2021-11-02 14:53] LABS: Protime INR 0.95
--- NOTE | 2021-11-02 15:50 | RAD REPORT ---
EXAM DESCRIPTION: RAD - Chest Pa And Lat (2 Views) - 11/02/2021 2:37 pm CLINICAL HISTORY: Pre op pending abdominal angiogram COMPARISON: Chest Pa And Lat (2 Views) dated 03/04/2021; Chest Pa And Lat (2 Views) dated 08/05/2020; C hest Single View dated 11/23/2017; Chest Pa And Lat (2 Views) dated 02/26/2017; THORAX WO CONTRAST date d 05/07/2015 FINDINGS: Lines: None. Lungs: No evidence of edema or pneumonia. Emphysema. Pleural: No significant pleural effusions or pneumothorax. Cardiac: The heart size is within normal limits. Bones: No acute fractures. Other: Atherosclerosis. IMPRESSION: No acute cardiopulmonary disease.
[~2021-11-03 11:00] MED LIST: HEPA 1000U/500MLS 2,000 UNIT/1,000 ML BAG IV ONE; LIDOCAINE 1% 20 ML MDV ONE; NITROGLYCERIN 100 MCG/ML SYR (for cath lab use only) IV ONE; NITROGLYCERIN/D5W 25 MG/250 ML BTL IV ONE
[2021-11-03] MEDS ORDERED: NA CHLORIDE 0.9% 500 ML ONE (11:17)
[2021-11-03] MEDS ORDERED: FENTANYL CITR 100 MCG/2 ML ONE (11:49)
[2021-11-03] MEDS ORDERED: HEPARIN 5000 UNIT/ML 1 ML VIAL ONE (11:51)
[2021-11-03] MEDS ORDERED: MIDAZOLAM HCL 2 MG/2 ML INJ ONE (11:51)
[2021-11-03] MEDS ORDERED: VERAPAMIL HCL 10 MG/4 ML VIAL IV ONE (11:51)
[2021-11-03] MEDS ORDERED: ASPIRIN 325 MG TAB ONE (11:55)
[2021-11-03] MEDS ORDERED: HEPARIN 10,000 UNIT/10 ML VIAL IV ONE (11:55)
[2021-11-03] MEDS ORDERED: CLOPIDOGREL 75 MG TABLET ONE (11:55)
[2021-11-03] MEDS ORDERED: TICAGRELOR 90 MG TABLET PO ONE (11:56)
--- NOTE | 2021-11-03 13:47 | EKG ---
Test Date: 2021-11-02 Test Time: 14:09:21 Fish Smoker: PANDA MEASUREMENT RESULTS: Intervals: Rate: 89 [place]: 126 QRSD: 78 QT: 378 QTc: 459 [place]: P: 76 [place]: 126 QRS: 72 T: 93 INTERPRETIVE STATEMENTS: Normal sinus rhythm Normal ECG Compared to ECG 11/23/2017 12:18:21 No significant changes Electronically Signed On 11-03-21 13:45:31 CDT by Manny Grey
[2021-11-03 15:56] VITALS: BP 145/54; O2SAT 97
--- NOTE | 2021-11-04 00:10 | OP ---
Date of Procedure: 11/03/2021 Surgeon: ADALBERTO ALEMAN Procedure Performed: Peripheral angiogram with runoff. Indication: Severe PAD with severe pain in lower extremity. Access: Right femoral artery 6-Guinean closed with manual pressure. Complications: None. Estimated Blood Loss: Bleeding less than 10 mL. Anesthesia: Total sedation time was 30 minutes, used fentanyl and Versed. Description Of Procedure: After risks, benefits, and alternatives were explained, the patient agreed to the procedure and signed informed consent. The patient was brought into the cardiac catheterizat ion laboratory and prepped and draped in usual sterile fashion. Then we tried to access right radial artery, however, it appears to be occluded so we switched to right femoral access and under fluorosc opy and ultrasound guidance using micropuncture kit, accessed right femoral artery and placed 6-[place] sheath. We took a straight pigtail into the distal aorta and performed distal aortogram w ith runoff. We then removed the catheter and the sheath and manual pressure was used for hemostasis. Findings: 1.Aorta, at the takeoff of the right renal artery, significant stenosis of at least 60%. 2.Bilateral internal iliacs have diffuse 70% stenosis and bilateral femoral artery with diffuse 60% stenosis. 3.Left SFA has very long widely patent stent and this stent has 40% stenosis. 4.Three vessel runoff are patent below the knee. 5.The right SFA is [employer] CLERK 100% occluded at the ostium, although it reconstitutes above the knee from co llaterals and 3 vessels below the knee have mild diffuse disease. Conclusions: Severe peripheral vascular disease as outlined above. Plan: 1.Intervention of the right SFA at Center via left femoral artery access. 2.We will plan also on evaluating this aorta with IVUS to see the lumen area and plan for interventi on if needed. SR/MODL Voice ID: [id number] Report ID: [id number]
== END 2021-11-03 16:14 | disposition home or self-care (01) ==
LOC: CCL 11:00
PROVIDERS: ATTEND Internal Medicine
DX: I70.203 Unspecified atherosclerosis of native arteries of extremities, bilateral legs (principal); I70.92 Chronic total occlusion of artery of the extremities; T82.856A Stenosis of peripheral vascular stent, initial encounter; I25.10 Atherosclerotic heart disease of native coronary artery without angina pectoris; I65.29 Occlusion and stenosis of unspecified carotid artery; I10 Essential (primary) hypertension; E78.5 Hyperlipidemia, unspecified; E11.9 Type 2 diabetes mellitus without complications; F17.210 Nicotine dependence, cigarettes, uncomplicated; Z79.84 Long term (current) use of oral hypoglycemic drugs; Z79.02 Long term (current) use of antithrombotics/antiplatelets; Z79.899 Other long term (current) drug therapy; Z88.0 Allergy status to penicillin; Z20.822 Contact with and (suspected) exposure to COVID-19; Z82.49 Family history of ischemic heart disease and other diseases of the circulatory system
CPT/HCPCS: 93005; 85025; 80048; 36415; 85610; 82947; 85730; 71046; 36200; 75630; 76937; U0003; J1644 ×2; J2250; J3010; J7040

== ENCOUNTER 2021-12-10 17:29 | Emergency (ER) | payer OTHER ==
--- NOTE | 2021-12-10 18:10 | ER ---
Nurse's Notes [facility] Name: Mukul Larson Age: 71 yrs Sex: Female : 1950 Arrival Date: 12/10/2021 Time: 17:30 Bed Waiting Private MD: Zoila Diane Diagnosis: Presentation: 12/10 17:34 Chief complaint: Patient states: PATIENT REPORTS SHORTNESS OF BREATH FOR 3 DAYS. [facility] Coronavirus screen: Vaccine status: Patient reports being unvaccinated. shortness of breath, Client presents with at least one sign or symptom that may indicate coronavirus-19. Standard/surgical mask placed on the client. Ebola Screen: Patient negative for fever greater than or equal to 101.5 degrees Fahrenheit, and additional compatible Ebola Virus Disease symptoms. Initial Sepsis Screen: Does the patient meet any 2 criteria? No. Patient's initial sepsis screen is negative. Does the patient have a suspected source of infection? No. Patient's initial sepsis screen is negative. Risk Assessment: Do you want to hurt yourself or someone else? Patient reports no desire to harm self or others. Onset of symptoms is unknown. 17:34 Method Of Arrival: Wheelchair [facility] 17:34 Acuity: APOLONIA 3 [facility] Triage Assessment: 17:39 General: Appears in no apparent distress. uncomfortable, Behavior is cooperative, [facility] appropriate for age, anxious. Pain: Complains of pain in chest. Respiratory: Reports shortness of breath cough that is labored breathing since 3 DAYS AGO Onset: The symptoms/episode began/occurred gradually, the patient has moderate shortness of breath. Historical: - Allergies: 17:38 NKDA; bh1 - PMHx: 17:38 Anxiety; CAD; CHF; CVA; Diabetes - NIDDM; High Cholesterol; Hypertension; bh1 - Immunization history:: Adult Immunizations up to date. - Social history:: Smoking status: Patient reports the use of cigarette tobacco products, smokes one pack cigarettes per day. Assessment: 18:08 Reassessment: PATIENT STATED SHE IS FEELING BETTER AND IS LEAVING. [facility] Vital Signs: 17:34 BP 158 / 53; Pulse 89; Resp 18; Temp 97.8(T); Pulse Ox 95% on R/A; Weight 48.99 kg; [facility] Height 4 ft. 11 in. (149.86 cm); Pain 8/; 17:34 Body Mass Index 21.81 (48.99 kg, 149.86 cm) [facility] ED Course: 17:30 Patient arrived in ED. am2 17:30 Zoila Diane FNP-C is Private Physician. am2 17:38 Triage completed. [facility] 17:39 Arm band placed on right wrist. [facility] Administered Medications: No medications were administered Outcome: 18:09 Patient left the ED. [facility] Signatures: Yadira Briseno 2 Martina Michael RN RN [facility] Corrections: (The following items were deleted from the chart) 17:39 17:38 Allergies: PENICILLINS; [place] [id number] 17:39 17:38 Allergies: steroids; [place] [id number]
[2021-12-10 18:23] VITALS: BP 158/53; TEMP 97.8; O2SAT 95
== END 2021-12-10 18:09 | disposition left against medical advice (07) ==
LOC: ER 17:29
DX: Z02.9 Encounter for administrative examinations, unspecified (principal)
CPT/HCPCS: 99281

== ENCOUNTER 2021-12-14 04:53 | Inpatient (IN) | payer OTHER ==
[2021-12-14 05:46] LABS: Arterial Blood Carboxyhemoglob 8.4 % (0-1.5); Blood Gas Oxyhemoglobin 86.3 % (94-97); Blood O2 Saturation 95.5 % (92-98.5)
[2021-12-14 06:05] LABS: Urine Blood Negative (Negative); Urine Glucose Negative (Negative); Urine Protein Negative (Negative)
[2021-12-14 06:40] LABS: Protime INR 1.04
[2021-12-14 06:44] LABS: Hematocrit 23.3 % (36.0-45.0); Lymphocytes % 20.8 % (15.3-44.8); MPV 7.2 fL (7.6-11.3); RBC Red Blood Cell Count 3.33 M/uL (3.86-4.86)
[2021-12-14] MEDS ORDERED: ALBUTEROL 2.5 MG/3 ML NEB SOL ONE ×2 (06:48→06:49)
[2021-12-14] MEDS ORDERED: IPRATROPIUM BROM 0.5MG/2.5ML ONE (06:48)
--- NOTE | 2021-12-14 07:48 | EKG ---
Test Date: 2021-12-14 Test Time: 05:30:36 Bank Officer: MARLIN MEASUREMENT RESULTS: Intervals: Rate: 67 [place]: 102 QRSD: 84 QT: 418 QTc: 441 [place]: P: 38 [place]: 102 QRS: 69 T: 84 INTERPRETIVE STATEMENTS: Sinus rhythm with short TX Otherwise normal ECG Compared to ECG 11/02/2021 14:09:21 Short [place] interval now present Electronically Signed On 12-14-21 07:48:09 CDT by Adam Lynch
[2021-12-14] MEDS ORDERED: METHYLPREDNISOLONE 125 MG INJ ONE (07:51)
[2021-12-14] MEDS ORDERED: ONDANSETRON 4 MG/2 ML VIAL ONE ×2 (07:52→09:25)
[2021-12-14] MEDS ORDERED: MORPHINE 2 MG/ML SYR ONE ×2 (07:52→09:25)
[2021-12-14 08:10] LABS: Albumin 3.3 g/dL (3.4-5.0); Bilirubin Direct 0.2 mg/dL (0-0.2); Bilirubin Total 0.4 mg/dL (0.2-1.0); Magnesium 1.9 mg/dL (1.8-2.4); Potassium 3.5 mmol/L (3.5-5.1); Protein, Total 6.9 g/dL (6.4-8.2); Troponin High Sensitivity 9.6 pg/mL (<58.9)
--- NOTE | 2021-12-14 08:20 | EDPHYS ---
Physician Documentation [facility] Name: Mukul Larson Age: 71 yrs Sex: Female : 1950 Arrival Date: 12/14/2021 Time: 04:53 Bed 24 Private MD: ED Physician Alfonso Arechiga HPI: 12/14 05:10 This 71 yrs old Female presents to ER via Wheelchair with complaints of mh7 Breathing Difficulty, Neck Pain, <24hrs Old. 05:10 The patient has shortness of breath at rest. Onset: The symptoms/episode began/occurred mh7 1 week(s) ago, and became worse today. 05:10 Duration: The symptoms are continuous, and are steadily getting worse. The patient's mh7 shortness of breath is aggravated by exertion, light activity, is alleviated by nebulizer treatment. Associated signs and symptoms: Pertinent positives: chest pain, non-productive cough, Pertinent negatives: productive cough, diaphoresis, dizziness, fever, hemoptysis, loss of consciousness, nausea, numbness in extremities, visual changes, vomiting. Severity of symptoms: At their worst the symptoms were moderate today, in the emergency department the symptoms have improved mildly. The patient has experienced similar episodes in the past, several times. Also complains of left side neck pain and muscle spasm when she woke up this morning.. Historical: - Allergies: 05:14 PENICILLINS; kd3 - Home Meds: 05:14 Metformin Oral [Active]; kd3 - PMHx: 05:14 Anxiety; CAD; CHF; CVA; Diabetes - NIDDM; High Cholesterol; Hypertension; kd3 - Immunization history:: Adult Immunizations up to date. - Social history:: Smoking status: Patient reports the use of cigarette tobacco products, smokes one-half pack cigarettes per day. ROS: 05:10 Constitutional: Negative for fever, chills, and weight loss, Eyes: Negative for injury, mh7 pain, redness, and discharge, ENT: Negative for injury, pain, and discharge, Abdomen/GI: Negative for abdominal pain, nausea, vomiting, diarrhea, and constipation, Back: Negative for injury and pain, : Negative for injury, bleeding, discharge, and swelling, MS/Extremity: Negative for injury and deformity, Skin: Negative for injury, rash, and discoloration, Neuro: Negative for headache, weakness, numbness, tingling, and seizure, Psych: Negative for depression, anxiety, suicide ideation, homicidal ideation, and hallucinations, Allergy/Immunology: Negative for hives, rash, and allergies, Endocrine: Negative for neck swelling, polydipsia, polyuria, polyphagia, and marked weight changes, Hematologic/Lymphatic: Negative for swollen nodes, abnormal bleeding, and unusual bruising. Exam: 05:10 Head/Face: Normocephalic, atraumatic. Eyes: Pupils equal round and reactive to light, mh7 extra-ocular motions intact. Lids and lashes normal. Conjunctiva and sclera are non-icteric and not injected. Cornea within normal limits. Periorbital areas with no swelling, redness, or edema. Chest/axilla: Normal chest wall appearance and motion. Nontender with no deformity. No lesions are appreciated. Cardiovascular: Regular rate and rhythm with a normal S1 and S2. No gallops, murmurs, or rubs. Normal PMI, no JVD. No pulse deficits. 05:10 Abdomen/GI: Soft, non-tender, with normal bowel sounds. No distension or tympany. No guarding or rebound. No evidence of tenderness throughout. Back: No spinal tenderness. No costovertebral tenderness. Full range of motion. Skin: Warm, dry with normal turgor. Normal color with no rashes, no lesions, and no evidence of cellulitis. MS/ Extremity: Pulses equal, no cyanosis. Neurovascular intact. Full, normal range of motion. Neuro: Awake and alert, GCS 15, oriented to person, place, time, and situation. Cranial nerves II-XII grossly intact. Motor strength 5/5 in all extremities. Sensory grossly intact. Cerebellar exam normal. Normal gait. Psych: Awake, alert, with orientation to person, place and time. Behavior, mood, and affect are within normal limits. 05:10 Constitutional: The patient appears alert, awake, uncomfortable. 05:10 Neck: External neck: tenderness, that is mild, of the left mid cervical area and left trapezius, C-spine: appears grossly normal, Thyroid: appears normal, Trachea: is midline with no obvious abnormalities, ROM/movement: pain, that is mild, with rotation to the left, with rotation to the right, limited range of motion, is not appreciated, Meningeal signs: are not present, nuchal rigidity, is not appreciated. 05:10 Respiratory: mild respiratory distress is noted, Respirations: prolonged exhalation, that is mild, Breath sounds: rhonchi, that are moderate, are scattered, wheezing: expiratory that is mild, is scattered, Respiratory rate: 25 08:22 ECG was reviewed by the Attending Physician. lisandro 08:22 Abdomen/GI: Inspection: abdomen appears normal, Bowel sounds: normal, Palpation: abdomen is soft and non-tender, Rectal exam: rectal tone normal, Stool: normal, guaiac negative, hemorrhoid(s), are not appreciated, mass, is not appreciated, swelling, is not appreciated, tenderness, is not appreciated. Vital Signs: 05:14 BP 146 / 57; Pulse 70; Resp 25; Temp 98.2(O); Pulse Ox 94% ; Weight 53.52 kg; Height 4 kd3 ft. 10 in. (147.32 cm); Pain 8/10; 06:50 BP 165 / 67; Pulse 67; Resp 17; Pulse Ox 100% ; as6 07:00 BP 165 / 67; Pulse 74; Resp 16; Pulse Ox 100% on R/A; Pain 10/10; em6 08:00 BP 156 / 62; Pulse 89; Resp 90; Pulse Ox 92% on R/A; em6 09:20 BP 156 / 62; Pulse 89; Resp 23; Pulse Ox 91% on R/A; Pain 8/10; em6 09:35 Pain 10/10; em6 10:30 BP 115 / 87; Pulse 66; Resp 19; Temp 98(O); Pulse Ox 96% ; Pain 3/10; em6 10:30 BP 115 / 87; Pulse 66; Resp 19; Temp 98; Pulse Ox 96% on R/A; Pain 3/10; em6 11:30 BP 97 / 70; Pulse 72; Resp 18; Pulse Ox 95% on R/A; em6 12:30 BP 133 / 83; Pulse 86; Resp 16; Pulse Ox 94% on R/A; em6 05:14 Body Mass Index 24.66 (53.52 kg, 147.32 cm) kd3 MDM: 07:18 Patient medically screened. lisandro 08:21 Differential diagnosis: Anemia Bronchitis CHF exacerbation, Chronic Obstructive lisandro Pulmonary Disease pulmonary edema, reactive airway disease, Unstable Angina. Antibiotic administration: Not indicated. Antibiotic administration: Levaquin given. The patient's Wells Deep Vein Thrombosis Score was calculated as follows: Total Score: 0-2 Pts- Low Risk. The patient's pulmonary embolism risk score was calculated as follows: Total Score: 0-2 points. This patient was found to be at low risk for a pulmonary embolism by using the Well's assessment criteria. Immunization status: Pneumococcal vaccine: Influenza vaccine: Data reviewed: vital signs, nurses notes, lab test result(s), EKG, radiologic studies, CT scan, plain films, ultrasound. 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 Test interpretation: by ED physician or midlevel provider: ECG, plain radiologic studies. Counseling: I had a detailed discussion with the patient and/or guardian regarding: the historical points, exam findings, and any diagnostic results supporting the discharge/admit diagnosis, lab results, radiology results, the need for further work-up and treatment in the hospital. 12/14 05:24 Order name: Basic Metabolic Panel; Complete Time: 08:13 [facility] 12/14 05:24 Order name: CBC with Diff; Complete Time: 08:07 [facility] 12/14 05:24 Order name: LFT's; Complete Time: 08:13 [facility] 12/14 05:24 Order name: Magnesium; Complete Time: 08:13 [facility] 12/14 05:24 Order name: NT PRO-BNP; Complete Time: 08:13 [facility] 12/14 05:24 Order name: PT-INR; Complete Time: 08:07 7 12/14 05:24 Order name: Troponin HS; Complete Time: 08:13 [facility] 12/14 05:24 Order name: COVID-19 SARS RT PCR (Document "Date of Onset" if Symptomatic); Complete [facility] Time: 08:07 12/14 05:24 Order name: Arterial Blood Gas; Complete Time: 05:49 [facility] 12/14 05:25 Order name: Blood Culture Adult (2) [facility] 12/14 06:06 Order name: Urine Dipstick-Ancillary; Complete Time: 06:08 [facility] 12/14 08:07 Order name: Type And Screen lisandro 12/14 10:51 Order name: CBC with Automated Diff [facility] 12/14 10:51 Order name: CBC with Automated Diff [facility] 12/14 05:24 Order name: XRAY Chest (1 view) [facility] 12/14 06:48 Order name: CT Head C Spine; Complete Time: 09:11 [facility] 12/14 08:25 Order name: CT Chest Abdomen Pelvis W/O Contrast; Complete Time: 09:11 [facility] 12/14 09:12 Order name: US LE Arterial Bilateral [facility] 12/14 10:51 Order name: Echo with Doppler [facility] 12/14 10:51 Order name: Comprehensive Metabolic Panel [facility] 12/14 10:51 Order name: Comprehensive Metabolic Panel [facility] 12/14 10:51 Order name: Magnesium [facility] 12/14 10:51 Order name: Magnesium [facility] 12/14 10:51 Order name: Phosphorus [facility] 12/14 10:51 Order name: Phosphorus [facility] 12/14 05:24 Order name: EKG; Complete Time: 05:25 [facility] 12/14 05:24 Order name: Cardiac monitoring; Complete Time: 05:24 [facility] 12/14 05:24 Order name: EKG - Nurse/Tech; Complete Time: 05:29 [facility] 12/14 05:24 Order name: IV Saline Lock; Complete Time: 08:07 [facility] 12/14 05:24 Order name: Labs collected and sent; Complete Time: 06:24 [facility] 12/14 05:24 Order name: O2 Per Protocol; Complete Time: 05:24 [facility] 12/14 05:24 Order name: O2 Sat Monitoring; Complete Time: 05:25 [facility] 12/14 05:25 Order name: Urine Dipstick-Ancillary (obtain specimen); Complete Time: 06:08 [facility] 12/14 10:51 Order name: Heart Healthy [facility] EC: Rate is 67 beats/min. Rhythm is regular. QRS [place] is Normal. MI interval is shortened lisandro at 102 msec. QRS interval is normal. QT interval is normal. No Q waves. T waves are Normal. No ST changes noted. Clinical impression: NSR w/ Non-specific ST/T Changes and No evidence of ischemia. Interpreted by me. Reviewed by me. Administered Medications: 06:55 Drug: Albuterol - atroVENT (ipratropium) (3:1) (2.5 mg - 0.5 mg) 3 ml Route: Nebulizer; kd3 07:40 Follow up: Response: No adverse reaction jd3 08:05 Drug: SOLU-Medrol (methylPrednisoLONE) 125 mg Route: IVP; Site: right antecubital; em6 09:41 Follow up: Response: No adverse reaction em6 08:06 Drug: morphine 2 mg Route: IVP; Infused Over: 4 mins; Site: right antecubital; em6 09:35 Follow up: Pain 10/10 Adult; Response: No adverse reaction; Pain is unchanged, em6 physician notified; RASS: Alert and Calm (0) 08:06 Drug: Zofran (Ondansetron) 4 mg Route: IVP; Site: right antecubital; em6 09:41 Follow up: Response: No adverse reaction em6 08:30 Drug: ProTONIX (pantoprazole) 40 mg Route: IVP; Site: right antecubital; em6 09:30 Follow up: Response: No adverse reaction jd3 08:30 Drug: Lasix (furosemide) 40 mg Route: IVP; Site: right antecubital; em6 09:41 Follow up: Response: No adverse reaction em6 09:20 Drug: morphine 2 mg Route: IVP; Infused Over: 4 mins; Site: right antecubital; em6 10:30 Follow up: BP 115 / 87; Pulse 66 bpm; Resp 19 bpm; Temp 98; Pulse Ox 96% RA; Pain 3/10 em6 Adult; Response: No adverse reaction; Pain is decreased 09:20 Drug: Zofran (Ondansetron) 4 mg Route: IVP; Site: right antecubital; em6 10:58 Follow up: Response: No adverse reaction em6 19:18 Not Given (Duplicate Order): morphine 2 mg IVP once over 4 mins jd3 Disposition Summary: 12/14/21 08:19 Hospitalization Ordered Hospitalization Status: Inpatient Admission lisandro Provider: Nisreen Raymundo cha Location: Telemetry/MedSurg (Inpatient) lisandro Condition: Stable lisandro Problem: new lisandro Symptoms: have improved lisandro Bed/Room Type: Standard lisandro Room Assignment: lisandro Diagnosis - Dyspnea lisandro - Systolic (congestive) heart failure lisandro - COPD/ Chronic obstructive pulmonary disease with (acute) exacerbation lisandro - Anemia, unspecified lisandro - Abnormal levels of other serum enzymes - elevated liver enzymes lisandro Forms: - Medication Reconciliation Form lisandro - SBAR form lisandro Signatures: Dispatcher [employer] EDAlfonso Pina MD MD cha Holmes, Maurice, MD MD mh7 Monserrat Butterfield, RN RN kd3 Breanna Galindo PA PA sb3 Morena Barrett, RN RN em6 Bryce Johnson RN jd3 Corrections: (The following items were deleted from the chart) : 08:17 Abdomen Limited+[id number] ordered. EDMS EDMS
--- NOTE | 2021-12-14 08:20 | ER ---
Nurse's Notes [facility] Name: Mukul Larson Age: 71 yrs Sex: Female : 1950 Arrival Date: 12/14/2021 Time: 04:53 Bed 24 Private MD: Diagnosis: Dyspnea;Systolic (congestive) heart failure;COPD/ Chronic obstructive pulmonary disease with (acute) exacerbation;Anemia, unspecified;Abnormal levels of other serum enzymes-elevated liver enzymes Presentation: 12/14 05:05 Chief complaint: Patient's son or daughter states: my brother called me and said that kd3 she was having a hard time breathing and was really weak about 2 hours ago. She is also complaining of sharp headaches in the back of the head. she has had two strokes and a heart attack in the past so I just want to make sure she is ok. she also had a surgery recently to unclog the veins in her right leg. Coronavirus screen: Vaccine status: Patient reports being unvaccinated. Ebola Screen: No symptoms or risks identified at this time. Initial Sepsis Screen: Does the patient meet any 2 criteria? No. Patient's initial sepsis screen is negative. Does the patient have a suspected source of infection? No. Patient's initial sepsis screen is negative. Risk Assessment: Do you want to hurt yourself or someone else? Patient reports no desire to harm self or others. Onset of symptoms was December 14, 2021. 05:05 Method Of Arrival: Wheelchair kd3 05:05 Acuity: APOLONIA 3 kd3 Triage Assessment: 05:14 General: Appears uncomfortable, Behavior is calm, cooperative. Pain: Complains of pain kd3 in occipital area, left occipital area, left base of the skull, right occipital area and right base of the skull. Neuro: Level of Consciousness is awake, alert, obeys commands, Oriented to person, place, time, situation. Respiratory: Reports shortness of breath at rest Onset: The symptoms/episode began/occurred this morning, the patient has moderate shortness of breath. Historical: - Allergies: 05:14 PENICILLINS; kd3 - Home Meds: 05:14 Metformin Oral [Active]; kd3 - PMHx: 05:14 Anxiety; CAD; CHF; CVA; Diabetes - NIDDM; High Cholesterol; Hypertension; kd3 - Immunization history:: Adult Immunizations up to date. - Social history:: Smoking status: Patient reports the use of cigarette tobacco products, smokes one-half pack cigarettes per day. Screenin:18 Abuse screen: Denies threats or abuse. Denies injuries from another. Nutritional kd3 screening: No deficits noted. Tuberculosis screening: No symptoms or risk factors identified. Fall Risk Gait- Weak (10 pts.). Assessment: 05:19 Respiratory: Airway is patent Respiratory effort is even, unlabored, Breath sounds are kd3 clear. 05:19 Cardiovascular: Rhythm is regular. kd3 05:19 Reassessment: Patient appears in no apparent distress at this time. Patient and/or kd3 family updated on plan of care and expected duration. Pain level reassessed. Patient is alert, oriented x 3, equal unlabored respirations, skin warm/dry/pink. juve triage. 07:50 General: Appears in no apparent distress. comfortable, Behavior is calm, cooperative. em6 Pain: Complains of pain in left leg Pain does not radiate. Pain currently is 10 out of 10 on a pain scale. Quality of pain is described as shooting, Is chronic, Alleviated by rest. Neuro: Napier Agitation-Sedation Scale (RASS): 0 - Alert and Calm Level of Consciousness is awake, alert, obeys commands, Oriented to person, place, time, situation, Moves all extremities. Cardiovascular: Heart tones S1 S2 present Capillary refill < 3 seconds Patient's skin is warm and dry. Pulses are all present. Rhythm is regular. Respiratory: Airway is patent Respiratory effort is even, unlabored, Breath sounds are clear bilaterally. GI: No signs and/or symptoms were reported involving the gastrointestinal system. : No signs and/or symptoms were reported regarding the genitourinary system. EENT: No signs and/or symptoms were reported regarding the EENT system. Derm: No signs and/or symptoms reported regarding the dermatologic system. Musculoskeletal: Circulation, motion, and sensation intact. Reports pain in left leg Pain is 10 out of 10 on a pain scale. 09:00 Reassessment: Patient appears in no apparent distress at this time. No changes from em6 previously documented assessment. Patient and/or family updated on plan of care and expected duration. Pain level reassessed. Patient is alert, oriented x 3, equal unlabored respirations, skin warm/dry/pink. Reassessment: notified provider of left leg pain. . General: Appears in no apparent distress. comfortable, Behavior is calm, cooperative. Pain: Complains of pain in left leg Pain does not radiate. Pain currently is 8 out of 10 on a pain scale. Quality of pain is described as shooting, Is chronic, Alleviated by rest. Neuro: Napier Agitation-Sedation Scale (RASS): 0 - Alert and Calm Level of Consciousness is awake, alert, obeys commands, Oriented to person, place, time, situation, Moves all extremities. Cardiovascular: Heart tones S1 S2 present Capillary refill < 3 seconds Patient's skin is warm and dry. Pulses are all present. Rhythm is regular. Respiratory: Airway is patent Respiratory effort is even, unlabored, Breath sounds are clear bilaterally. GI: No signs and/or symptoms were reported involving the gastrointestinal system. : No signs and/or symptoms were reported regarding the genitourinary system. EENT: No signs and/or symptoms were reported regarding the EENT system. Derm: No signs and/or symptoms reported regarding the dermatologic system. Musculoskeletal: Circulation, motion, and sensation intact. Reports pain in left leg Pain is 8 out of 10 on a pain scale. 10:30 Reassessment: Patient appears in no apparent distress at this time. No changes from em6 previously documented assessment. Patient and/or family updated on plan of care and expected duration. Pain level reassessed. Patient is alert, oriented x 3, equal unlabored respirations, skin warm/dry/pink. Reassessment: patients reports left leg pain is now at a 3 out of 10. 11:30 Reassessment: Patient appears in no apparent distress at this time. No changes from em6 previously documented assessment. Patient and/or family updated on plan of care and expected duration. Pain level reassessed. Patient is alert, oriented x 3, equal unlabored respirations, skin warm/dry/pink. 12:30 Reassessment: Patient appears in no apparent distress at this time. No changes from em6 previously documented assessment. Patient and/or family updated on plan of care and expected duration. Pain level reassessed. Patient is alert, oriented x 3, equal unlabored respirations, skin warm/dry/pink. 13:19 Reassessment: Patient and/or family updated on plan of care and expected duration. Pain jd3 level reassessed. Patient is alert, oriented x 3, equal unlabored respirations, skin warm/dry/pink. report given to Maicol BEEBE. Vital Signs: 05:14 BP 146 / 57; Pulse 70; Resp 25; Temp 98.2(O); Pulse Ox 94% ; Weight 53.52 kg; Height 4 kd3 ft. 10 in. (147.32 cm); Pain 8/10; 06:50 BP 165 / 67; Pulse 67; Resp 17; Pulse Ox 100% ; as6 07:00 BP 165 / 67; Pulse 74; Resp 16; Pulse Ox 100% on R/A; Pain 10/10; em6 08:00 BP 156 / 62; Pulse 89; Resp 90; Pulse Ox 92% on R/A; em6 09:20 BP 156 / 62; Pulse 89; Resp 23; Pulse Ox 91% on R/A; Pain 8/10; em6 09:35 Pain 10/10; em6 10:30 BP 115 / 87; Pulse 66; Resp 19; Temp 98(O); Pulse Ox 96% ; Pain 3/10; em6 10:30 BP 115 / 87; Pulse 66; Resp 19; Temp 98; Pulse Ox 96% on R/A; Pain 3/10; em6 11:30 BP 97 / 70; Pulse 72; Resp 18; Pulse Ox 95% on R/A; em6 12:30 BP 133 / 83; Pulse 86; Resp 16; Pulse Ox 94% on R/A; em6 05:14 Body Mass Index 24.66 (53.52 kg, 147.32 cm) kd3 ED Course: 04:53 Patient arrived in ED. bp1 05:05 Monserrat Butterfield RN is Primary Nurse. kd3 05:08 Jose Luis Cole MD is Attending Physician. mh7 05:14 Triage completed. kd3 05:14 Arm band placed on left wrist. kd3 05:18 Patient has correct armband on for positive identification. kd3 05:18 No provider procedures requiring assistance completed. kd3 05:36 XRAY Chest (1 view) In Process Unspecified. EDMS 07:10 Primary Nurse role handed off by Monserrat Butterfield RN jd3 07:10 Bryce Johnson RN is Primary Nurse. jd3 07:18 Attending Physician role handed off by Jose Luis Cole MD lisandro 07:18 Alfonso Arechiga MD is Attending Physician. lisandro 07:30 Inserted saline lock: 22 gauge in right antecubital area, using aseptic technique. jd3 Blood collected. 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 em6 08:17 Nisreen Raymundo MD is Hospitalizing Provider. lisandro 08:38 CT Head C Spine In Process Unspecified. EDMS 08:38 CT Chest Abdomen Pelvis W/O Contrast In Process Unspecified. EDMS 10:05 US LE Arterial Bilateral In Process Unspecified. EDMS 13:26 Patient admitted, IV remains in place. jd3 Administered Medications: 06:55 Drug: Albuterol - atroVENT (ipratropium) (3:1) (2.5 mg - 0.5 mg) 3 ml Route: Nebulizer; kd3 07:40 Follow up: Response: No adverse reaction jd3 08:05 Drug: SOLU-Medrol (methylPrednisoLONE) 125 mg Route: IVP; Site: right antecubital; em6 09:41 Follow up: Response: No adverse reaction em6 08:06 Drug: morphine 2 mg Route: IVP; Infused Over: 4 mins; Site: right antecubital; em6 09:35 Follow up: Pain 10/10 Adult; Response: No adverse reaction; Pain is unchanged, em6 physician notified; RASS: Alert and Calm (0) 08:06 Drug: Zofran (Ondansetron) 4 mg Route: IVP; Site: right antecubital; em6 09:41 Follow up: Response: No adverse reaction em6 08:30 Drug: ProTONIX (pantoprazole) 40 mg Route: IVP; Site: right antecubital; em6 09:30 Follow up: Response: No adverse reaction jd3 08:30 Drug: Lasix (furosemide) 40 mg Route: IVP; Site: right antecubital; em6 09:41 Follow up: Response: No adverse reaction em6 09:20 Drug: morphine 2 mg Route: IVP; Infused Over: 4 mins; Site: right antecubital; em6 10:30 Follow up: BP 115 / 87; Pulse 66 bpm; Resp 19 bpm; Temp 98; Pulse Ox 96% RA; Pain 3/10 em6 Adult; Response: No adverse reaction; Pain is decreased 09:20 Drug: Zofran (Ondansetron) 4 mg Route: IVP; Site: right antecubital; em6 10:58 Follow up: Response: No adverse reaction em6 19:18 Not Given (Duplicate Order): morphine 2 mg IVP once over 4 mins jd3 Medication: 05:19 VIS not applicable for this client. kd3 Outcome: 08:19 Decision to Hospitalize by Provider. lisandro 13:19 Admitted to ER Hold. Please see [facility] for further documentation. jd3 13:19 Condition: stable 13:19 Instructed on the need for admit. 14:55 Patient left the ED. iw Signatures: Dispatcher [employer] EDMS Alfonso Arechiga MD MD cha Williams, Irene, CONCEPCIÓN BEEBE iw Bryce Johnson RN RN jd3 Amy Choudhary Maurice, MD MD mh7 Mukul Mendoza RN RN as6 Monserrat Butterfield RN RN kd3 Morena Barrett RN RN em6 Corrections: (The following items were deleted from the chart) 09:33 09:32 Zofran (Ondansetron) 4 mg IVP in right antecubital em6 em6 09:49 07:50 Musculoskeletal: No signs and/or symptoms reported regarding the musculoskeletal em6 system. Circulation, motion, and sensation intact. em6
[2021-12-14] MEDS ORDERED: PANTOPRAZOLE 40 MG INJ ONE (08:30)
[2021-12-14] MEDS ORDERED: FUROSEMIDE 40 MG/4 ML VIAL ONE (08:35)
--- NOTE | 2021-12-14 09:03 | RAD REPORT ---
EXAM DESCRIPTION: CT - Head C Spine Mpr Wo Con - 12/14/2021 8:34 am CLINICAL HISTORY: Head and neck pain COMPARISON: 2016 TECHNIQUE: Computed axial tomography of the head and cervical spine was obtained. Sagittal and coronal reconstruction was performed. All CT scans are performed using dose optimization technique as appropriate and may include automated exposure control or mA/KV adjustment according to patient size. FINDINGS: An intracranial bleed is not seen. Small low-density areas within the right thalamus and left basal ganglia probably old lacunar infarct ions. 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 The ventricles are normal in caliber. An extra-a xial fluid collection is not noted.Fluid within the visualized sinuses and mastoids is not seen A cervical fracture is not visualized. No dislocation is noted. Disc bulge, osteophytes and facet hypertrophy C3-4 result in moderate right foraminal stenosis. Sligh t anterior subluxation C3 on C4. 5 millimeter lucency with a sclerotic border within C2 probably benign. Slight anterior subluxation C4 on C5-C5 on C6. Slight anterior subluxation C7 on T1. A left carotid stent in place IMPRESSION: No acute intracranial abnormality is seen. A cervical fracture is not visualized. Spondylosis most marked C3-4 resulting in moderate right foraminal stenosis If the patient continues to have symptoms to suggest intracranial /spinal cord pathology then MRI wou ld be recommended
--- NOTE | 2021-12-14 09:09 | RAD REPORT ---
EXAM DESCRIPTION: CT - Chest Abd Pelvis Wo Con - 12/14/2021 8:34 am CLINICAL HISTORY: Chest and abdominal pain COMPARISON: 2014 and 2017 TECHNIQUE: Computed axial tomography of the chest, abdomen and pelvis was obtained. Oral contrast wa s given. IV contrast was not requested. All CT scans are performed using dose optimization technique as appropriate and may include automated exposure control or mA/KV adjustment according to patient size. FINDINGS: The evaluation of mediastinum, roly, vessels and solid organs is limited secondary to the lack of IV contrast administration Lungs are generally clear. Coronary arterial calcifications. No mediastinal or hilar lymphadenopathy is seen. A pleural effusion is not present. A pericardial effusion is not seen. The liver, spleen, pancreas and right adrenal gland grossly normal. 5.1 centimeter left renal cyst. Tiny right renal cyst. Tiny nonobstructing left renal calculi. 17 millimeter left adrenal adenoma. Atherosclerotic disease. No adnexal mass There is no evidence of diverticulitis. IMPRESSION: No acute abnormality is displayed
--- NOTE | 2021-12-14 10:28 | RAD REPORT ---
EXAM DESCRIPTION: US - Lower Extremity Arterial Bilat - 12/14/2021 10:03 am CLINICAL HISTORY: Leg pain COMPARISON: None FINDINGS: The right common femoral arterial waveform biphasic. No flow within the right prox superficial femoral artery. Right mid and distal superficial femoral arteries demonstrate monophasic waveforms Right popliteal, right posterior tibial and right dorsalis pedis arterial waveform is monophasic Waveforms throughout the left lower extremity are monophasic Grayscale, color and spectral analysis performed on all vessels IMPRESSION: Proximal right superficial femoral artery is occluded. The more distal right lower extremity arteries are patent with diminished flow Moderate diffuse left lower extremity arterial disease
[2021-12-14] MEDS ORDERED: ONDANSETRON 4 MG/2 ML VIAL IV PRN (10:46)
[2021-12-14] MEDS ORDERED: ACETAMINOPHEN 500 MG TAB PO PRN (10:46)
--- NOTE | 2021-12-14 12:44 | RAD REPORT ---
EXAM DESCRIPTION: RAD - Chest Single View - 12/14/2021 5:35 am CLINICAL HISTORY: The patient is 71 years old and is Female; SOB TECHNIQUE: Frontal view of the chest. COMPARISON: No relevant prior studies available. FINDINGS: Lungs: Prominent interstitial markings which may represent interstitial edema. No consolidation. Prominent pulmonary vasculature. Pleural space: Unremarkable. No pneumothorax. Heart: Unremarkable. Mediastinum: Unremarkable. Bones/joints: Unremarkable. IMPRESSION: 1. Prominent interstitial markings which may represent interstitial edema. 2. No consolidation. Electronically signed by: Mohsen Hansen MD 12/14/2021 5:48 AM CDT Due to temporary technical issues with the PACS/Fluency reporting system, reports are being signed by the in house radiologists without review as a courtesy to insure prompt reporting. The interpreting radiologist is fully responsible for the content of the report.
[2021-12-14 13:05] VITALS: BMI 24.6
[2021-12-14 15:26] VITALS: TEMP 98
[2021-12-14 15:29] VITALS: BP 133/83; O2SAT 94
[2021-12-14] MEDS ORDERED: FUROSEMIDE 40 MG/4 ML VIAL IV SCH (17:00)
[2021-12-14] MEDS ORDERED: POTASSIUM 25 MEQ EFFERV TAB PO SCH (21:00)
--- NOTE | 2021-12-15 00:39 | P.SSS ---
Patient History Date of Service: 12/14/21 Reason for admission: Chest pain rule out acute coronary syndrome History of Present Illness: patient is a 71-year-old female who came to the hospital with chest discomfort. Plan was to admit her to the hospital to be ruled out for acute coronary synd nora. However she left against medical advice. Allergies Penicillins Allergy (Verified 11/02/21 13:48) Itching Home Medications: Clopidogrel Bisulfate [Clopidogrel] 75 mg PO DAILY 05/07/15 Hydrochlorothiazide 12.5 mg PO DAILY 05/07/15 Lisinopril 10 mg PO DAILY 05/07/15 Metformin HCl 1,000 mg PO BID 05/07/15 Metoprolol Tartrate 50 mg PO BID 05/07/15 Ropinirole HCl 4 mg PO BEDTIME 05/07/15 Docusate/Senna [Senokot-S*] 2 tab PO DAILY PRN 02/24/17 Ipratropium/Albuterol Sulfate [Iprat-Albut 0.5-3(2.5) mg/3 ml] 3 ml IH PRN #1 ampul.neb 02/26/17 Atorvastatin Calcium [Lipitor] 40 mg PO DAILY 03/04/21 Fluticasone [Flovent Hfa 110*] 2 appl IH DAILY 03/04/21 - Past Medical/Surgical History Diabetic: Yes -: CVAx2 -: IA -: COPD -: CHF -: NIDDM -: HTN -: Hyperlipidemia -: Anxiety -: Heart stents -: Gisele -: Tubal ligation -: L neck sx - Family History Family History: Reviewed- Non-Contributory - Family History Mother -: Heart disease, Diabetes - Social History Alcohol use: No CD- Drugs: No Caffeine use: Yes Review of Systems 10-point ROS is otherwise unremarkable Physical Examination - Vital Signs Temperature: 98 F Blood Pressure: 133/83 Pulse: 86 Respirations: 16 - Physical Exam General: Alert, In no apparent distress, Oriented x3 - Studies Laboratory Data (last 24 hrs) 12/14/21 07:39: Sodium 138, Potassium 3.5, BUN 15, Creatinine 1.18, Glucose 109 H, Magnesium 1.9, Total Bilirubin 0.4, AST 115 H, ALT 245 H, Alkaline Phosphatase 192 H 12/14/21 06:16: PT 11.5, INR 1.04 12/14/21 06:16: WBC 9.7, Hgb 7.6 L, Hct 23.3 L, Plt Count 440 H Treatment Summary: Patient left against medical advise - Disposition Disposition: AMA-LEFT AGAINST MEDICAL ADVIC Condition: FAIR Diet: AHA Activity: Fall precautions Time Spent Managing Pts Care (In Minutes): 15
[2021-12-15] MEDS ORDERED: ENOXAPARIN 40 MG/0.4 ML SQ SCH (09:00)
--- OUTSIDE RECORDS SUMMARY | 2021-12-22 02:24 | XMS REPORT | Continuity of Care Document ---
:1950 Author Organization [facility] t Address [address] [place] [address] Care Team Providers Name Role Phone Arely Diane Primary Care Physician Que Attending Clinician Unavailable Benedicto Attending Clinician Unavailable Jens Dodd Attending Clinician Unavailable Attending Clinician Unavailable Singer CODY Attending Clinician Marycruz Bailey APN Attending Clinician Marycruz BAILEY Attending Clinician Unavailable Kamille ESPINOSA Attending Clinician Unavailable Doctor Unassigned, Name Attending Clinician Unavailable Physician, Primary or Family Admitting Clinician Unavailabl e Payers Payer Name Policy Type Policy Number Effective Date Expiration Date Adriana melendez [facility] [id number] 2021 COMP HMO D SNP 00:00:[address] [facility] [id number] 2014 00:00:00 [facility] [id number] 2016 2020 00:00:00 00:00:00 Problems Condition Condition Condition Status Onset Resolution Last Treating Co mments Source Name Details Category Date Date Treatment Clinician Date Spinal Spinal Disease Active Univers stenosis, stenosis, 5-10 ity of lumbar lumbar 00:00: [place] region, region, 00 Medical without without Branch neurogenic neurogenic claudicati claudicati on on Allergies, Adverse Reactions, Alerts Allergy Allergy Status Severity Reaction(s) Onset Inactive Treating Comm ents Source Name Type Date Date Clinician PENICILL Drug Active ITCHING Univers INS Class 7-16 ity of 00:00: [place] 00 Medical Branch Penicill Propensi Active Itching Unive rs ins ty to 7-16 ity of adverse 00:00: [place] reaction 00 Medical s Branch bee DA Active SV HIVES [facility] venom 6-27 Clear protein 00:00: [place] (honey 00 [facility] bee) [facility] No Known DA Active U 2020-06 [facility] Allergie 1-22 Clear s 00:00: [place] 00 [facility] NO KNOWN Drug Active Univers ALLERGIE Class ity of S [facility] Social History Social Habit Start Date Stop Date Quantity Comments Source History of Cigarette Smoker Universi ty of tobacco use [facility] Exposure to 2021-12-08 2021-12-18 Not sure [facility] SARS-CoV-2 00:00:00 03:38:00 [facility] Branch Alcohol intake 2021-12-18 2021-12-18 0 /d University of 00:00:00 00:00:00 [facility] Sex Ass[birth year] At [birth year] Universit y of 00:00:00 00:00:00 [facility] Smoking Status Start Date Stop Date Source Occasional tobacco smoker 2016-08-15 00:00:00 Un iversity of [facility] Medications Ordered Filled Start Stop Current Ordering Indication Dosage Frequency Signature Comments Components Source Medication Medication Date Date Medication? Clinician (SIG) Name Name diazePAM 2021- No 5mg 5 mg, Univers (VALIUM) 12-18 Oral, ity of tablet 5 mg 09:00: 09:01 [place] dose, On Medical [place] Branch 12/18/21 at 0415, ARIES simvastatin Yes 40mg Take 40 mg Univers 40 mg 12-18 by mouth ity of tablet 04:10: at [place] 53 bedtime. Medical Branch FENTanyl PF 2021- No 50ug 50 mcg, Un william (SUBLIMAZE 7-17 07-17 Slow IV ity o f (PF)) 04:00: 03:12 Push, [place] injection 00 :00 ONCE, 1 Medical 50 mcg dose, On Branch 12/17/21 at 2300, STAT NaCl 0.9% No 500mL at 999 Univ ers (NS) bolus 12-18 mL/hr, 500 it y of infusion 04:00: 04:19 mL, IV [place] 500 mL 00 :00 Infusion, Medical ONCE, 1 Branch dose, On 12/17/21 at 2300, STAT ondansetron 2021- No 4mg 4 mg, Slow Univers (ZOFRAN 12-18 IV Push, ity of (PF)) 03:15: 03:12 ONCE, 1 [place] injection 4 00 :00 dose, On Medi jenifer mg Sat Branch 12/17/21 at 2215, ARIES traMADoL 50 Yes 4647 50mg Take 1 Univ ers mg tablet -16 tablet by ity o f 00:00: mouth [place] 00 every 6 Medical (six) Branch hours as needed for Pain (scale 4-6). Indication s: acute pain traMADoL 50 2021- No 4647 50mg Take 1 Uni vers mg tablet 12-17 tablet by ity of 00:00: 00:00 mouth [place] 00 :00 every 6 Medical (six) Branch hours as needed for Pain (scale 4-6). Indication s: acute pain traMADOL 50 Yes 50mg Take 1 Univ ers mg tablet 4-13 tablet by ity o f 00:00: mouth [place] 00 every 4 Medical (four) Branch hours as needed for Pain (scale 1-3). traMADOL 50 2021- No 50mg Take 1 Uni vers mg tablet -14 12-17 tablet by ity of 00:00: 00:00 mouth [place] 00 :00 every 4 Medical (four) Branch hours as needed for Pain (scale 1-3). ALPRAZolam Yes TAKE 1 Unive rs 0.5 mg 2-22 TABLET BY ity of tablet 00:00: MOUTH [place] 00 TWICE A Medical DAY Branch NEEDED FOR ANXIETY cilostazol Yes TAKE 1 Unive rs 100 mg 2-22 TABLET BY ity of tablet 00:00: MOUTH [place] 00 TWICE A Medical DAY Branch hydroCHLORO Yes TAKE ONE Un william thiazide 2-22 CAPSULE BY ity o f 12.5 mg 00:00: MOUTH [place] capsule EVERY Medical MORNING Branch lisinopril Yes 10mg Take 10 mg U nivers 10 mg 2-22 by mouth ity of tablet 00:00: daily. Medical Branch metoprolol Yes TAKE 1 Unive rs tartrate 2-22 TABLET BY ity of 100 mg 00:00: MOUTH [place] tablet TWICE A Medical DAY Branch predniSONE Yes TAKE 1 Unive rs 20 mg 2-22 TABLET BY ity of tablet 00:00: MOUTH [id number] Medical YS,1 TAB Branch [id number] ,1/2 TAB [id number] simvastatin Yes TAKE 1 Univ ers 40 mg 2-22 TABLET BY ity of tablet 00:00: MOUTH AT [place] BEDTIME Medical Branch rOPINIRole Yes TAKE 1 Unive rs 4 mg tablet 2-22 TABLET BY ity of 00:00: MOUTH AT [place] BEDTIME Medical Branch traMADOL 50 Yes TAKE 1 Univ ers mg tablet 2-22 TABLET BY ity o f 00:00: MOUTH TWICE A Medical DAY Branch NEEDED FOR PAIN ALPRAZolam Yes TAKE 1 Unive rs 0.5 mg 2-22 TABLET BY ity of tablet 00:00: MOUTH TWICE A Medical DAY Branch NEEDED FOR ANXIETY hydroCHLORO Yes TAKE ONE Un william thiazide 2-22 CAPSULE BY ity o f 12.5 mg 00:00: MOUTH [place] capsule EVERY Medical MORNING Branch lisinopril Yes 10mg Take 10 mg U nivers 10 mg 2-22 by mouth ity of tablet 00:00: daily. [place] Medical Branch metoprolol Yes TAKE 1 Unive rs tartrate 2-22 TABLET BY ity of 100 mg 00:00: MOUTH [place] tablet 00 TWICE A Medical DAY Branch predniSONE Yes TAKE 1 Unive rs 20 mg 2-22 TABLET BY ity of tablet 00:00: MOUTH 00 [id number] Medical YS,1 TAB Branch [id number] ,1/2 TAB [id number] cilostazol 2021- No TAKE 1 Univ ers 100 mg 2-22 -17 TABLET BY ity of tablet 00:00: 00:00 MOUTH [place] 00 :00 TWICE A Medical DAY Branch simvastatin 2021- No TAKE 1 Uni vers 40 mg 07-26 TABLET BY ity of tablet 00:00: 00:00 MOUTH AT [place] 00 :00 BEDTIME Medical Branch rOPINIRole 2021- No TAKE 1 Univ ers 4 mg tablet 07-26 TABLET BY it y of 00:00: 00:00 MOUTH AT [place] 00 :00 BEDTIME Medical Branch traMADOL 50 2021- No TAKE 1 Uni vers mg tablet 07-26 TABLET BY ity of 00:00: 00:00 MOUTH [place] 00 :00 TWICE A Medical DAY Branch NEEDED FOR PAIN clopidogrel Yes 75mg Take 75 mg Univers 75 mg 2-21 by mouth ity of tablet 00:00: daily. [place] Medical Branch metFORMIN Yes TAKE 1 Univer s 1,000 mg 2-21 TABLET BY ity of tablet 00:00: MOUTH [place] [address] TWICE A Medical DAY Branch clopidogrel Yes 75mg Take 75 mg Univers 75 mg 2-21 by mouth ity of tablet 00:00: daily. [place] [address] Medical Branch metFORMIN Yes TAKE 1 Univer s 1,000 mg 2-21 TABLET BY ity of tablet 00:00: MOUTH [place] [address] TWICE A Medical DAY Branch Vital Signs Vital Name Observation Time Observation Value Comments Source Body temperature 2021-12-18 08:45:42 37.44 Giovanna [facility] Systolic blood 2021-12-18 08:39:00 143 mm[Hg] Univer sity of pressure [facility] Diastolic blood 2021-12-18 08:39:00 90 mm[Hg] [facility] 2021-12-18 08:39:00 114 /min [facility] Respiratory rate 2021-12-18 08:39:00 20 /min [facility] Body height 2021-12-18 08:39:00 149.9 cm [facility] Body weight 2021-12-18 08:39:00 48.988 kg [facility] BMI 2021-12-18 08:39:00 21.81 kg/m2 [facility] Oxygen saturation in 2021-12-18 08:39:00 93 /min [facility] Arterial blood by [facility] Pulse oximetry Branch Systolic blood 2021-12-18 03:00:00 140 mm[Hg] Univer sity of pressure [facility] Diastolic blood 2021-12-18 03:00:00 90 mm[Hg] [facility] Heart rate 2021-12-18 03:00:00 99 /min [facility] Respiratory rate 2021-12-18 03:00:00 26 /min [facility] Oxygen saturation in 2021-12-18 03:00:00 98 /min [facility] Arterial blood by [facility] Pulse oximetry Branch Body temperature 2021-12-18 02:23:00 37.5 Giovanna [facility] Body height 2021-12-18 02:23:00 149.9 cm [facility] Body weight 2021-12-18 02:23:00 48.988 kg [facility] BMI 2021-12-18 02:23:00 21.81 kg/m2 [facility] Procedures Procedure Date / Time Performing Clinician Source Performed CONSENT/REFUSAL FOR 2021-12-18 08:36:35 [facility] COMP. METABOLIC PANEL 2021-12-18 03:08:00 Elizabeth Bailey [facility] ([id number]) [facility] CBC WITH DIFF 2021-12-18 03:08:00 Elizabeth Bailey [facility] COVID-19 (ID NOW RAPID 2021-12-18 03:08:00 Elizabeth Bailey [facility] TESTING) [facility] URINE DRUG (IMMUNOASSAY) 2021-12-18 02:39:00 Elizabeth Bailey Un [facility] - COMPREHENSIVE DRUG Medical [facility] SCREEN URINALYSIS 2021-12-18 02:39:00 Elizabeth Bailey [facility] NOTICE OF PRIVACY 2021-12-18 02:08:20 Doctor Unassigned, No [facility] PRACTICES Name [facility] Branch CONSENT/REFUSAL FOR 2021-12-18 02:07:28 Doctor Unassigned, No Un [facility] DIAGNOSIS AND TREATMENT Name Medical Branch Encounters Start End Encounter Admission Attending Care Care Encounter Source Date/Time Date/Time Type Type Clinicians Facility Department ID 2021-11-30 Inpatient CORRINE Grey [facility]L [facility] [id number] [facility] 13:00:00 Manny [id number] [facility] 2021-10-04 Outpatient [place] STLMLC [facility] [id number] Common 09:48:03 Zoila [facility] 2021-07-15 Outpatient [place], STLMLC STLC [id number] Common 08:00:02 Zoila [facility] 2021-06-29 Outpatient Benedicto, STLMLC STLC [id number] Common 13:43:19 Zoila [facility] 2021-04-25 Inpatient CORRINE Dodd HCACL DAYS [id number] [facility] 07:00:00 Konrad [id number] [facility] 2021-12-18 2021-12-18 Emergency X [facility] ERT [id number] Univers 03:37:00 04:23:00 DEV loving [facility] 2021-12-18 2021-12-18 Emergency [facility] [id number] Univers 03:37:00 04:23:00 Dev SANDHU [id number] i [place]ita of [place] [id number] [place] [phone] 2021-12-17 2021-12-17 Emergency [facility] [id number] Univers 21:28:00 23:30:00 Elizabeth SANDHU [id number] ity [facility] [id number] [place] [phone] 2021-12-17 2021-12-17 Emergency [facility] E[facility] [id number] Univers 21:28:00 23:30:00 ELIZABETH loving [facility] 2021-11-30 2021-11-30 Outpatient MELODY Champion OUTD [id number] [facility] 05:11:00 05:11:00 Manny 13 [facility] 2021-11-27 2021-11-27 ambulatory STLMLC STLMLC [id number] Common 00:00:00 00:00:00 [facility] 2021-10-06 2021-10-06 ambulatory STLMLC STLMLC [id number] Common 00:00:00 00:00:00 [facility] 2021-04-26 2021-04-26 Outpatient MELODY House DAYS [id number] [facility] 05:15:00 05:15:00 Konrad [id number] [facility] 2021-04-19 2021-04-19 ambulatory STLMLC STLMLC [id number] Common 00:00:00 00:00:00 [facility] 2021-04-11 2021-04-11 ambulatory STLMLC STLMLC [id number] Common 00:00:00 00:00:00 [facility] 2021-01-27 2021-01-27 Outpatient STLMLC STLMLC [id number] Common 00:00:00 00:00:00 [facility] 2020-01-23 2020-01-23 Outpatient GRECIA FOWLER [facility] [id number] Univers 13:00:00 13:00:00 [id number] [facility] 2020-01-23 2020-01-23 Outpatient GRECIA FOWLER [facility] [id number] Univers 13:00:00 13:00:00 [facility] 2019-12-04 2019-12-04 Orders Doctor NATE [id number] 00:00:00 00:00:00 Only Unassigned, LUPILLO [id number] [place] [facility] [id number] Results Test Description Test Time Test Comments Results Result Comments Source COMP. METABOLIC PANEL (53656) 2021-12-18 03:31:59 Test Item Value Reference Range Interpretation Comme nts NA (test code = 9699487471) 134 mmol/L 135-145 L K (test code = 9239235820) 4.5 mmol/L 3.5-5 CL (test code = 0405772226) 98 mmol/L 98-108 CO2 TOTAL (test code = 0471259893) 25 mmol/L 23-31 AGAP (test code = 7199035383) 2-16 BUN (test code = 1703632627) 20 mg/dL 7-23 GLUCOSE (test code = 1585743406) 133 mg/dL 70-110 H CREATININE (test code = 1.04 mg/dL 0.5-1.04 9952704551) TOTAL BILI (test code = 0.4 mg/dL 0.1-1.9 3572318979) CALCIUM (test code = 0954767789) 8.6 mg/dL 8.6-10.6 T PROTEIN (test code = 0199704122) 6.7 g/dL 6.3-8.2 ALBUMIN (test code = 4337363381) 4.0 g/dL 3.5-5 ALK PHOS (test code = 9143773096) 153 U/L 34-122 H ALTv (test code = 1742-6) 78 U/L 5-35 H AST(SGOT) (test code = 6637310530) 27 U/L 13-40 eGFR (test code = 2360855835) mL/min/1.73m2 KARIS (test code = KARIS) Association of Glomerular Filtration Rate (GFR) and Staging of Kidney Disease* + +-------- + ------+| GFR (mL/min/1.73 m2) ?| With Kidney Damage ?| ?Without Kidney Damage+ +-- + +| ?>90 ?| ?Stage one ?| ? Normal ?+ +------- + -------+| ?60-89 ?| ?Stage two ?| ? Decreased GFR ? + +-------- + ------+| ?30-59 ?| ?Stage three ?| ? Stage three ? + +-------- + ------+| ?15-29 ?| ?Stage four ? | ? Stage four ?+ +------- + -------+| ?<15 (or dialysis) ? ?| ?Stage five ? | ? Stage five ?+ +------- + -------+ *Each stage assumes the associated GFR level has been in effect for at least three months. ?Stages 1 to 5, with or without kidney disease, indicate chronic kidney disease. Notes: Determination of stages one and two (with eGFR >59mL/min/1.73 m2) requires estimation of kidney damage for at least three months as defined by structural or functional abnormalities of the kidney, manifested by either:Pathological abnormalities or Markers of kidney damage (including abnormalities in the composition of the blood or urine or abnormalities in imaging tests). Lab Interpretation (test code = Abnormal 69000-3) [facility] WITH [id number] 03:16:01 Test Item Value Reference Range Interpretation Comments WBC (test code = See_Comment [Automated 6690-2) message] The sy stem which generated this result transmitted reference range : 4.30 - 11.10 10*3/?L. The reference range was not used to interpret this result as normal/abnormal . RBC (test code = See_Comment L [Automated 789-8) message] The sy stem which generated this result transmitted reference range : 3.93 - 5.25 10*6/?L. The reference range was not used to interpret this result as normal/abnormal . HGB (test code = 8.3 g/dL 11.6-15 L 718-7) HCT (test code = 26.7 % 35.7-45.2 L 4544-3) MCV (test code = 70.3 fL 80.6-95.5 L 787-2) MCH (test code = 21.8 pg 25.9-32.8 L 785-6) MCHC (test code = 31.1 g/dL 31.6-35.1 L 786-4) RDW-SD (test code = 46.9 fL 39-49.9 60167-8) RDW-CV (test code = 18.9 % 12-15.5 H 788-0) PLT (test code = See_Comment H [Automated 777-3) message] The sy stem which generated this result transmitted reference range : 166 - 358 10*3/ ?L. The reference r claudy was not used to interpret this result as normal/abnormal . MPV (test code = 9.2 fL 9.5-12.9 L 73609-9) NRBC/100 WBC (test See_Comment [Automat ed code = 8026171476) message] The system which generated this result transmitted reference range : 0.0 - 10.0 /100 WBCs. The refer ence range was not u sed to interpret th is result as normal/abnormal . NRBC x10^3 (test code See_Comment [Auto mated = 8463647472) message] The s ystem which generated this result transmitted reference range : 10*3/?L. The reference range was not used to interpret this result as normal/abnormal . GRAN MAT (NEUT) % 67.5 % (test code = 770-8) IMM GRAN % (test code 0.40 % = 6471935231) LYMPH % (test code = 19.1 % 736-9) MONO % (test code = 11.0 % 5905-5) EOS % (test code = 1.3 % 713-8) BASO % (test code = 0.7 % 706-2) GRAN MAT x10^3(ANC) 6.97 10*3/uL 1.88-7.09 (test code = 4247408120) IMM GRAN x10^3 (test 0.04 10*3/uL 0-0.06 code = 8493066181) LYMPH x10^3 (test code 1.97 10*3/uL 1.32-3.29 = 731-0) MONO x10^3 (test code 1.13 10*3/uL 0.33-0.92 H = 742-7) EOS x10^3 (test code = 0.13 10*3/uL 0.03-0.39 711-2) BASO x10^3 (test code 0.07 10*3/uL 0.01-0.07 = 704-7) Lab Interpretation Abnormal (test code = 71554-2) [id number] 11:11:00 Test Item Value Reference Range Interpretation Comments ACT-ISTAT (test code 196 SEC 74-137 H Perform ed by certified = ACTI) 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 [facility] CBC W/AUTO [id number] 17:02:00 Test Item Value Reference Range Interpretation Comments WHITE BLOOD CELL (test code = 11.5 x10 3/uL 4.5-11.0 H WBC) RED BLOOD CELL (test code = 3.50 x10 6/uL 3.54-5.02 L RBC) HEMOGLOBIN (test code = HGB) 8.0 g/dL 11.0-15.0 L HEMATOCRIT (test code = HCT) 25.7 % 33.0-45.0 L MEAN CELL VOLUME (test code = 73.4 fL 81.0-99.0 L MCV) MEAN CELL HGB (test code = MCH) 22.9 pg 27.0-33.0 L MEAN CELL HGB CONCETRATION 31.1 g/dL 33.0-37.0 L (test code = MCHC) RED CELL DISTRIBUTION WIDTH CV 18.8 % 11.5-14.5 H (test code = RDW) RED CELL DISTRIBUTION WIDTH SD 49.3 fL 37.0-54.0 N (test code = RDW-SD) PLATELET COUNT (test code = 461 x10 3/uL 150-400 H PLT) MEAN PLATELET VOLUME (test code 9.0 fL 7.0-9.0 N = MPV) NEUTROPHIL % (test code = NT%) 63.2 % 56.0-77.0 N IMMATURE GRANULOCYTE % (test 0.4 % 0.0-2.0 N code = IG%) LYMPHOCYTE % (test code = LY%) 24.7 % 14.0-32.0 N MONOCYTE % (test code = MO%) 7.4 % 4.8-9.0 N EOSINOPHIL % (test code = EO%) 3.5 % 0.3-3.7 N BASOPHIL % (test code = BA%) 0.8 % 0.0-2.0 N NUCLEATED RBC % (test code = 0.0 % 0-0 N NRBC%) NEUTROPHIL # (test code = NT#) 7.24 x10 3/uL 2.0-7.6 N IMMATURE GRANULOCYTE # (test 0.05 x10 3/uL 0.00-0.03 H code = IG#) LYMPHOCYTE # (test code = LY#) 2.83 x10 3/uL 1.0-3.8 N MONOCYTE # (test code = MO#) 0.85 x10 3/uL 0.1-0.8 H EOSINOPHIL # (test code = EO#) 0.40 x10 3/uL 0.0-0.2 H BASOPHIL # (test code = BA#) 0.09 x10 3/uL 0.0-0.2 N NUCLEATED RBC # (test code = 0.00 x10 3/uL 0.0-0.1 N NRBC#) MANUAL DIFF REQUIRED (test code NO = MDIFF) RBC [id number] 17:02:00 Test Item Value Reference Range Interpretation Comments ANISOCYTOSIS (test code = ANISO) 1+ POLYCHROMASIA (test code = POLC) SLIGHT POIKILOCYTOSIS (test code = POIK) 2+ MICROCYTOSIS (test code = MICR) 1+ TARGET CELLS (test code = TGT) RARE ELLIPTOCYTES (test code = ELL) 2+ ACANTHOCYTES (test code = ACAN) FEW NONE SCHISTOCYTES (test code = SERENITY) FEW BASIC METABOLIC [id number] 16:01:00 Test Item Value Reference Range Interpretation Comments SODIUM (test code = NA) 134 mEq/L 134-147 N POTASSIUM (test code = 4.9 mEq/L 3.4-5.0 N K) CHLORIDE (test code = 104 mEq/L 100-108 N CL) CARBON DIOXIDE (test 29 mEq/l 21-33 N code = CO2) ANION GAP (test code = 6 0-20 N GAP) GLUCOSE (test code = 123 mg/dL 70-110 H GLU) BLOOD UREA NITROGEN 16 mg/dL 7-18 N (test code = BUN) GLOMERULAR FILTRATION 44.0 70-80 L Units of measure = RATE (test code = GFR) ml/mi n/1.73 m2 CREATININE (test code = 1.2 mg/dL 0.6-1.3 N CREAT) CALCIUM (test code = 8.5 mg/dL 8.0-10.5 N CA) PROTHROMBIN [id number] 15:56:00 Test Item Value Reference Range Interpretation Comments PROTHROMBIN TIME 11.0 SECONDS 9.3-12.9 N PATIENT (test code = PTP) INTERNATIONAL NORMAL 1.0 0.8-1.2 N TARGET RATIO (test code = INR BY IN DICATION INR) Indication INR1. Prophyl axis of venous thrombos is 2.0 - 3. 0 (orthopedic adelaide mel), Prophylaxis of venous thrombos is (other than hig h-risk surgery), Niecy tment of Deep Vein Thrombosis/Pulm onary Embolism, Preve ntion of systemic emb olism - Tissue heart va lves, Acute Myocardia l Infarction (to prevent systemic embo lism), Valvular heart disease, Atri al Fibrillation, Bileaflet mecha nical valve in aortic position.2. Mec hanical prosthetic valv es (high risk), 2.5 - 3.5 Presence of Lupus Anticoagu lant or Antiphospholi pid Antibodies, Pre vention of systemic e mbolism - Acute Myocard ial Infarction (t o prevent recurre nt infarct). - XR CHEST 2 [id number] 00:00:00 [place] [facility] : 1950 Sex: F FAX: Manny Gonzalez MD [phone] [place]: St: PRE Name: MANJIT BHATT [facility] : 1950 Age/S: 71/F [address] [place], [place] [address]vd Unit #: [id number] Loc: [place] [address] Phys: Vincent Grey Acct: [id number] Dis Date: Status: PRE SDC PHONE #: [phone] Exam Date: 11/28/2021 151 FAX #: [phone] Reason: PREOP EXAMS: CPT CODE: [id number] XR CHEST 2 V [id number] PROCEDURE INFORMATION: Exam: XR Chest Exam date and time: 11/28/2021 2:34 PM Age: 71 years old Clinical indication: Screening exam; Pre-operative exam; Cardiovascular screening; Additional info: Preop TECHNIQUE: Imaging protocol: Radiologic exam of the chest. Views: 2 views. PA and Lateral COMPARISON: DX XR CHEST 2 V 04/25/2021 3:15 AM FINDINGS: Lungs: No consolidation. Pleural spaces: No pleural effusion. Heart/Mediastinum: The heart and vascular markingsare within limits of normal. There is atherosclerotic calcification of the aorta. Bones/joints: No gross acute findings. IMPRESSION: No acute cardiopulmonary findings Electronically Signed by Ubaldo Mariee on 11/28/2021 at 1615 Reported and signed by: Gildardo Mariee D.O. 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 [facility] GLUCOSE [id number] 09:51:00 Test Item Value Reference Range Interpretation Comments GLUCOSE BEDSIDE (test 121 MG/DL 70-110 H Perfor med by certified code = GLUBED) 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 Bebeto t performance dep ends on theamount of vi davin (antigen) in th e sample.This bebeto t has not been FDA cleare d or approved; the t est hasbeen authori zed by FDA under an Em ergency Use Authorizati on(EUA) for use by labo ratories certified under the CLIA thatmeet the requirements to perform moderate, high or waivedcomplexit y tests. CBC W/AUTO [id number] 09:10:00 Test Item Value Reference Range Interpretation Comments WHITE BLOOD CELL (test code = 9.5 x10 3/uL 4.5-11.0 N WBC) RED BLOOD CELL (test code = 4.19 x10 6/uL 3.54-5.02 N RBC) HEMOGLOBIN (test code = HGB) 12.8 g/dL 11.0-15.0 N HEMATOCRIT (test code = HCT) 37.8 % 33.0-45.0 N MEAN CELL VOLUME (test code = 90.2 fL 81.0-99.0 N MCV) MEAN CELL HGB (test code = MCH) 30.5 pg 27.0-33.0 N MEAN CELL HGB CONCETRATION 33.9 g/dL 33.0-37.0 N (test code = MCHC) RED CELL DISTRIBUTION WIDTH CV 14.0 % 11.5-14.5 N (test code = RDW) PLATELET COUNT (test code = 457 x10 3/uL 150-400 H PLT) NEUTROPHIL % (test code = NT%) 58.4 % 56.0-77.0 N LYMPHOCYTE % (test code = LY%) 30.4 % 14.0-32.0 N NEUTROPHIL # (test code = NT#) 5.57 x10 3/uL 2.0-7.6 N LYMPHOCYTE # (test code = LY#) 2.89 x10 3/uL 1.0-3.8 N MANUAL DIFF REQUIRED (test code NO = MDIFF) RED CELL DISTRIBUTION WIDTH SD 46.4 fL 37.0-54.0 N (test code = RDW-SD) MEAN PLATELET VOLUME (test code 9.7 fL 7.0-9.0 H = MPV) IMMATURE GRANULOCYTE % (test 0.8 % 0.0-2.0 N code = IG%) MONOCYTE % (test code = MO%) 5.7 % 4.8-9.0 N EOSINOPHIL % (test code = EO%) 3.6 % 0.3-3.7 N BASOPHIL % (test code = BA%) 1.1 % 0.0-2.0 N NUCLEATED RBC % (test code = 0.0 % 0-0 N NRBC%) IMMATURE GRANULOCYTE # (test 0.08 x10 3/uL 0.00-0.03 H code = IG#) MONOCYTE # (test code = MO#) 0.54 x10 3/uL 0.1-0.8 N EOSINOPHIL # (test code = EO#) 0.34 x10 3/uL 0.0-0.2 H BASOPHIL # (test code = BA#) 0.10 x10 3/uL 0.0-0.2 N NUCLEATED RBC # (test code = 0.00 x10 3/uL 0.0-0.1 N NRBC#) BASIC METABOLIC [id number] 08:30:00 Test Item Value Reference Range Interpretation Comments SODIUM (test code = NA) 136 mEq/L 134-147 N POTASSIUM (test code = 4.4 mEq/L 3.4-5.0 N K) CHLORIDE (test code = 101 mEq/L 100-108 N CL) CARBON DIOXIDE (test 28 mEq/l 21-33 N code = CO2) ANION GAP (test code = 11 0-20 N GAP) GLUCOSE (test code = 109 mg/dL 70-110 N GLU) BLOOD UREA NITROGEN 22 mg/dL 7-18 H (test code = BUN) GLOMERULAR FILTRATION 44.0 70-80 L Units of measure = RATE (test code = GFR) ml/mi n/1.73 m2 CREATININE (test code = 1.2 mg/dL 0.6-1.3 N CREAT) CALCIUM (test code = 9.0 mg/dL 8.0-10.5 N CA) PROTHROMBIN [id number] 08:23:00 Test Item Value Reference Range Interpretation Comments PROTHROMBIN TIME 10.8 SECONDS 9.3-12.9 N PATIENT (test code = PTP) INTERNATIONAL NORMAL 1.0 0.8-1.2 N TARGET RATIO (test code = INR BY IN DICATION INR) Indication INR1. Prophyl axis of venous thrombos is 2.0 - 3. 0 (orthopedic adelaide mel), Prophylaxis of venous thrombos is (other than hig h-risk surgery), Niecy tment of Deep Vein Thrombosis/Pulm onary Embolism, Preve ntion of systemic emb olism - Tissue heart va lves, Acute Myocardia l Infarction (to prevent systemic embo lism), Valvular heart disease, Atri al Fibrillation, Bileaflet mecha nical valve in aortic position.2. Mec hanical prosthetic valv es (high risk), 2.5 - 3.5 Presence of Lupus Anticoagu lant or Antiphospholi pid Antibodies, Pre vention of systemic e mbolism - Acute Myocard ial Infarction (t o prevent recurre nt infarct). THROMBOPLASTIN TIME [id number] 08:23:00 Test Item Value Reference Range Interpretation Comments THROMBOPLASTIN TIME 30.6 Seconds 25.0-39.5 N Ther apeutic PARTIAL (test code = Range: 50.4 - 88.3 PTT) Seconds Effective 09/17/2018 - XR CHEST 2 [id number] 00:00:00 [facility] : 1950 Sex: F FAX: Konrad Miranda [phone] [place]: St: PRE FAX: Gillian Donato Name: MANJIT BHATT [facility] : 8Age/S: 71/ [address] [place] [address] Unit #: [id number] Loc: [place] [address] Phys: Gillian Donato NP Acct: [id number] Dis Date: Status: PRE SDC PHONE #:[phone] Exam Date: 04/25/202148 FAX #: [phone] Reason: PREOP EXAMS: CPT CODE: [id number] XR CHEST 2 V [id number] PROCEDURE INFORMATION: Exam: XR Chest Exam date and time: 04/25/2021 3:15 AM Age: 71 years old Clinical indication: Pre-operative exam; Respiratory screening exam; Additional info: Preop TECHNIQUE: Imaging protocol: XR of the chest. Views: 2 views. PA and Lateral COMPARISON: No relevant prior studies available. FINDINGS: Lungs: There are normal lung volumes without consolidation or interstitial oppacities. Pleural spaces: Unremarkable. No pleural effusion. No pneumothorax. Heart/Mediastinum: Coronary artery stent noted. Bones/joints: Mild to moderate spondylosis and facet arthropathy in the spine. IMPRESSION: No acute cardiopulmonary abnormality, as detailed above. at 1107 Reported and signed by: Taurus Carpio M.D. CC: Konrad Dodd MD; Gillian Donato NP Technologist: RT [place] (R) Trnscrd Date/Time/By: 04/25/2021([id number]) : By: [email or web address] Orig Print D/T: S: 04/25/2021 ([id number]) PAGE 1 Signed Report"
== END 2021-12-14 14:53 | disposition left against medical advice (07) | DRG 313 ==
LOC: ER 04:53 → ERHOLD 12:00
PROVIDERS: ADMIT Hospitalist; ATTEND Hospitalist
DX: R07.9 Chest pain, unspecified (principal); I50.22 Chronic systolic (congestive) heart failure; I11.0 Hypertensive heart disease with heart failure; J44.9 Chronic obstructive pulmonary disease, unspecified; E11.9 Type 2 diabetes mellitus without complications; E78.5 Hyperlipidemia, unspecified; I25.2 Old myocardial infarction; Z86.73 Personal history of transient ischemic attack (TIA), and cerebral infarction without residual deficits; Z20.822 Contact with and (suspected) exposure to COVID-19
CPT/HCPCS: 36415; 70450; 71045; 71250; 72125; 74176; 80048; 80076; 81003; 82805; 83735; 83880; 84484; 85025; 85610; 86850; 86900; 86901; 87040; 93005; 93925; 94640; 96374; 96375; 99285; C9113; J1940; J2270; J2405; J2930; U0003

== ENCOUNTER 2022-07-07 23:29 | Emergency (ER) | payer OTHER ==
--- OUTSIDE RECORDS SUMMARY | 2022-07-07 23:35 | XMS REPORT | Continuity of Care Document ---
:1950 Author Organization [facility] t Address [address] [place] [address] [address]. [address] [place] [address] Care Team Providers Name Role Phone ARIADNE SHEIKH Primary Care Physician Unavailable Ariadne Sheikh Attending Clinician Unavailable Manny Grey Attending Clinician Unavailable SADIQ HICKMAN Attending Clinician Unavailable SIENNA WILSON Attending Clinician Unavailable Jonathon Valenzuela Attending Clinician Unavailable Rayne Ghosh Attending Clinician Unavailable UNKNOWN, ATTENDING Attending Clinician Unavailable Doctor Unassigned, [place] Attending Clinician Unavailable Vonda Bell Attending Clinician Unavailable ANDREA BULLARD Attending Clinician Unavailable Andrea Bullard DO Attending Clinician Umair Bailey APN Attending Clinician UMAIR BAILEY Attending Clinician Unavailable GRECIA ESPINOSA Attending Clinician Unavailable Physician, No Primary or Family Admitting Clinician UnavailANYI Barnes Admitting Clinician Unavailable SIENNA WILSON Admitting Clinician Unavailable Jonathon Valenzuela Admitting Clinician Unavailable RAYNE GHOSH Admitting Clinician Unavailable Vonda Bell Admitting Clinician Unavailable Payers Payer Name Policy Type Policy Number Effective Date Expiration Date Adriana melendez WELLMED/UHC DUAL [id number] 2021 COMP HMO D SNP 00:00:00 [employer] [place] [id number] 2014 [place] 00:[place]:00 [facility] MEDICARE C1 [id number] Common ADVANTAGE WELLMED Spirit - [facility] MEDICARE C1 [id number] Common ADVANTAGE WELLMED Spirit - [facility] MEDICARE C1 [id number] Common ADVANTAGE WELLMED Spirit [facility] AMERIVANTAGE [id number] 2016 2020 00:00:00 00:00:00 Problems Condition Condition Condition Status Onset Resolution Last Treating Co mments Source Name Details Category Date Date Treatment Clinician Date Spinal Spinal Disease Active Univers stenosis, stenosis, 5-10 ity of lumbar lumbar 00:00: [place] region, region, 00 Medical without without Branch neurogenic neurogenic claudicati claudicati on on Peripheral Peripheral Problem C [facility] vascular vascular Spirit disease disease - [facility] Hyperlipid Hyperlipid Problem C [facility] emia emia Spirit 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 - [facility] diabetes diabetic [facility] Hypertensi Hypertensi Problem [facility] ve heart ve heart Spirit disease disease - [facility] with with St congestive congestive [facility] heart heart Medical failure failure Center Chronic Chronic Problem Common obstructiv obstructiv Sp lex e e - [facility] pulmonary pulmonary St disease disease [facility] (COPD) [facility] Restless Restless Problem Commo n legs leg Spirit syndrome syndrome - [facility] [id number] 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 - [facility] with other skin [facility] complicati [facility]ica l [facility] [id number] Fungal Problem Common toenail Spirit infection - [facility] [id number] 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 - [facility] urinary [facility] Allergies, Adverse Reactions, Alerts Allergy Allergy Status Severity Reaction(s) Onset Inactive Treating Comm ents Source Name Type Date Date Clinician Penicill DA Active U HIVES 2021-06 [facility] ins 1-10 Clear 00:00: [place] 00 [facility] bee DA Active SV HIVES 2021-06 [facility] venom 1-10 Clear protein 00:00: [place] [facility] Penicill DA Active U HIVES 2021-06 [facility] ins 1-08 Clear 00:00: [place] 00 [facility] PENICILL Drug Active ITCHING Univers INS Class 7-16 ity of 00:00: [place] 00 [facility] Penicill Propensi Active Itching Unive rs ins ty to 7-16 ity of adverse 00:00: [place] reaction [facility] Penicill Propensi Active Itching Unive rs ins ty to 7-16 ity of adverse 00:00: [place] reaction [facility] bee DA Active SV HIVES [facility] venom 6-27 Clear protein 00:00: [place] (honey 00 [facility] bee) [facility] No Known DA Active U 2020-06 [facility] Allergie 1-22 Clear s 00:00: [place] 00 [facility] NO KNOWN Drug Active Univers ALLERGIE Class ity of S [facility] Social History Social Habit Start Date Stop Date Quantity Comments Source History of Current Smoker Common Spi rit - Tobacco Use [facility] Sex Assigned At Common Sp lex - [facility] Exposure to 2021-12-08 2021-12-[address] [facility] SARS-CoV-2 00:00:00 03:38:00 [facility] (event) [place] Alcohol intake 2021-12-18 2021-12-18 0 /d University of 00:00:00 00:00:00 [facility] Smoking Status Start Date Stop Date Source Current Smoker 2022-04-13 00:00:00 Common Spiri t - [facility] Occasional tobacco smoker 2016-08-15 00:00:00 Un iversity of [facility] Medications Ordered Filled Start Stop Current Ordering Indication Dosage Frequency Signature Comments Components Source Medication Medication Date Date Medication? Clinician (SIG) Name Name Pregabalin Pregabalin No 1{capsu TID Pregabalin 50 MG 50 MG 8 le} 50 MG 00:00: 00 diazePAM No 5mg 5 mg, Univers (VALIUM) 12-18 Oral, ity of tablet 5 mg 09:00: 09:01 [place] dose, On Medical [place] 12/18/21 at 0415, ARIES simvastatin Yes 40mg Take 40 mg Univers 40 mg 17 by mouth ity of tablet 04:10: at [place] 53 bedtime. Medical Branch simvastatin Yes 40mg Take 40 mg Univers 40 mg -17 by mouth ity of tablet 04:10: at [place] 53 bedtime. Medical Branch FENTanyl PF 2021- No 50ug 50 mcg, Un william (SUBLIMAZE 12-18 Slow IV ity o f (PF)) 04:00: 03:12 Push, [place] injection 00 :00 ONCE, 1 Medical 50 mcg dose, On Branch 12/17/21 at 2300, STAT NaCl 0.9% 2021- No 500mL at 999 Univ ers (NS) [...] 4-6). Indication s: acute pain traMADoL 50 2021-0 2021- No 4647 50mg Take 1 Uni [...] needed for Pain (scale 1-3). traMADOL 50 No 50mg Take 1 Uni vers mg tablet 09-14-17 tablet by ity of 00:00: 00:00 mouth [...] f 12.5 mg 00:00: MOUTH [place] capsule 00 EVERY Medical MORNING Branch lisinopril Yes 10mg [...] BY ity of tablet 00:00: MOUTH 00 [id number] Medical YS,1 TAB Branch [id number] ,1/2 TAB [id number] ALPRAZolam Yes TAKE 1 Unive rs 0.5 mg 2-22 TABLET BY ity of tablet 00:00: MOUTH 00 TWICE A Medical DAY Branch NEEDED FOR ANXIETY cilostazol Yes TAKE 1 Unive rs 100 mg 2-22 TABLET BY ity of tablet 00:00: MOUTH 00 TWICE A Medical DAY Branch hydroCHLORO Yes TAKE ONE Un william thiazide 2-22 CAPSULE BY ity o f 12.5 mg 00:00: MOUTH [place] capsule 00 EVERY Medical MORNING Branch lisinopril Yes 10mg [...] BY ity of tablet 00:00: MOUTH 00 [id number] Medical YS,1 TAB Branch [id number] ,1/2 TAB [id number] simvastatin Yes TAKE 1 Univ ers 40 mg 2-22 TABLET BY ity of tablet 00:00: MOUTH AT [place] 00 BEDTIME Medical Branch rOPINIRole Yes TAKE 1 Unive rs 4 mg tablet 2-22 TABLET BY ity of 00:00: MOUTH AT [place] 00 BEDTIME Medical Branch traMADOL 50 Yes TAKE 1 Univ ers mg tablet 2-22 TABLET BY ity o f 00:00: MOUTH [place] 00 TWICE A Medical DAY Branch NEEDED FOR PAIN ALPRAZolam Yes TAKE 1 Unive rs 0.5 mg 2-22 TABLET BY ity of tablet 00:00: MOUTH [place] 00 TWICE A Medical DAY Branch NEEDED FOR ANXIETY hydroCHLORO Yes TAKE ONE Un william thiazide 2-22 CAPSULE BY ity o f 12.5 mg 00:00: MOUTH [place] capsule 00 EVERY Medical MORNING Branch lisinopril Yes 10mg Take 10 mg U nivers 10 mg 2-22 by mouth ity of tablet 00:00: daily. [place] 00 Medical Branch metoprolol Yes TAKE 1 Unive rs tartrate 2-22 TABLET BY ity of 100 mg 00:00: MOUTH [place] tablet 00 TWICE A Medical DAY Branch predniSONE Yes TAKE 1 Unive rs 20 mg 2-22 TABLET BY ity of tablet 00:00: MOUTH [place] 00 [id number] Medical YS,1 TAB Branch [id number] ,1/2 TAB [id number] cilostazol 2021- No TAKE 1 Univ ers 100 mg 2-22 -17 TABLET BY ity of tablet 00:00: 00:00 MOUTH [place] 00 :00 TWICE A Medical DAY Branch simvastatin 2021- No TAKE 1 Uni vers 40 mg 2-22 -17 TABLET BY ity of tablet 00:00: 00:00 MOUTH AT [place] 00 :00 BEDTIME Medical Branch rOPINIRole 2021- No TAKE 1 Univ ers 4 mg tablet 2-23 12-17 TABLET BY it y of 00:00: 00:00 MOUTH AT [place] 00 :00 BEDTIME Medical Branch traMADOL 50 2021- No TAKE 1 Uni vers mg tablet 2-23 12- TABLET BY ity of 00:00: 00:00 MOUTH [place] 00 :00 TWICE A Medical DAY Branch NEEDED FOR PAIN clopidogrel Yes 75mg Take 75 mg Univers 75 mg 2-21 by mouth ity of tablet 00:00: daily. [place] Medical Branch metFORMIN Yes TAKE 1 Univer s 1,000 mg 2-21 TABLET BY ity of tablet 00:00: MOUTH [place] TWICE A Medical DAY Branch clopidogrel Yes 75mg Take 75 mg Univers 75 mg 2-21 by mouth ity of tablet 00:00: daily. [place] Medical Branch metFORMIN Yes TAKE 1 Univer s 1,000 mg 2-21 TABLET BY ity of tablet 00:00: MOUTH [place] TWICE A Medical DAY Branch clopidogrel Yes 75mg Take 75 mg Univers 75 mg 2-21 by mouth ity of tablet 00:00: daily. [place] Medical Branch metFORMIN Yes TAKE 1 Univer s 1,000 mg 2-21 TABLET BY ity of tablet 00:00: MOUTH [place] TWICE A Medical DAY Branch Flovent HFA Flovent HFA No Flovent 44 MCG/ACT 44 MCG/ACT HFA 44 MCG/ACT EPINEPHrine EPINEPHrine No EPINEPHrin 0.3 0.3 e 0.3 MG/0.3ML MG/0.3ML MG/0.3ML Atorvastati Atorvastati No 1{table QD Atorvastat n Calcium n Calcium t} in Calcium 40 MG 40 MG 40 MG rOPINIRole rOPINIRole No 1{table BID rOPINIRole HCl 4 MG HCl 4 MG t} HCl 4 MG ALPRAZolam ALPRAZolam No 1{table BID ALPRAZolam 0.5 MG 0.5 MG t} 0.5 MG hydrOXYzine hydrOXYzine No hydrOXYzin HCl 25 MG HCl 25 MG e HCl 25 MG Symbicort Symbicort No Symbicort 160-4.5 160-4.5 160-4.5 MCG/ACT MCG/ACT MCG/ACT EPINEPHrine EPINEPHrine No EPINEPHrin 0.3 0.3 e 0.3 MG/0.3ML MG/0.3ML MG/0.3ML ALPRAZolam ALPRAZolam No 1{table BID ALPRAZolam 0.5 MG 0.5 MG t} 0.5 MG Clopidogrel Clopidogrel No 1{table QD Clopidogre Bisulfate Bisulfate t} l 75 MG 75 MG Bisulfate 75 MG hydroCHLORO hydroCHLORO No hydroCHLOR thiazide thiazide Othiazide 12.5 MG 12.5 MG 12.5 MG metFORMIN metFORMIN No BID metFORMIN HCl 1000 MG HCl 1000 MG HCl 1000 MG Lisinopril Lisinopril No Lisinopril 10 MG 10 MG 10 MG Atorvastati Atorvastati No 1{table QD Atorvastat n Calcium n Calcium t} in Calcium 40 MG 40 MG 40 MG hydrOXYzine hydrOXYzine No hydrOXYzin HCl 25 MG HCl 25 MG e HCl 25 MG rOPINIRole rOPINIRole No 1{table TID rOPINIRole HCl 2 MG HCl 2 MG t} HCl 2 MG Clopidogrel Clopidogrel No Clopidogre Bisulfate Bisulfate l 75 MG 75 MG Bisulfate 75 MG hydroCHLORO hydroCHLORO No hydroCHLOR thiazide thiazide Othiazide 12.5 MG 12.5 MG 12.5 MG Clopidogrel Clopidogrel No 1{table QD Clopidogre Bisulfate Bisulfate t} l 75 MG 75 MG Bisulfate 75 MG metFORMIN metFORMIN No BID metFORMIN HCl 1000 MG HCl 1000 MG HCl 1000 MG EPINEPHrine EPINEPHrine No EPINEPHrin 0.3 0.3 e 0.3 MG/0.3ML MG/0.3ML MG/0.3ML Lisinopril Lisinopril No Lisinopril 10 MG 10 MG 10 MG hydroCHLORO hydroCHLORO No hydroCHLOR thiazide thiazide Othiazide 12.5 MG 12.5 MG 12.5 MG hydrOXYzine hydrOXYzine No hydrOXYzin HCl 25 MG HCl 25 MG e HCl 25 MG rOPINIRole rOPINIRole No 1{table TID rOPINIRole HCl 2 MG HCl 2 MG t} HCl 2 MG Symbicort Symbicort No Symbicort 160-4.5 160-4.5 160-4.5 MCG/ACT MCG/ACT MCG/ACT Atorvastati Atorvastati No 1{table QD Atorvastat n Calcium n Calcium t} in Calcium 40 MG 40 MG 40 MG metFORMIN metFORMIN No metFORMIN HCl 1000 MG HCl 1000 MG HCl 1000 MG Pregabalin Pregabalin No 1{capsu TID Pregabalin 50 MG 50 MG le} 50 MG rOPINIRole rOPINIRole No rOPINIRole HCl 4 MG HCl 4 MG HCl 4 MG Flovent HFA Flovent HFA No Flovent 44 MCG/ACT 44 MCG/ACT HFA 44 MCG/ACT ALPRAZolam ALPRAZolam No 1{table BID ALPRAZolam 0.5 MG 0.5 MG t} 0.5 MG Atorvastati Atorvastati No Atorvastat n Calcium n Calcium in Calcium 40 MG 40 MG 40 MG rOPINIRole rOPINIRole No 1{table QD rOPINIRole HCl 4 MG HCl 4 MG t} HCl 4 MG EPINEPHrine EPINEPHrine No EPINEPHrin 0.3 0.3 e 0.3 MG/0.3ML MG/0.3ML MG/0.3ML Lisinopril Lisinopril No 1{table QD Lisinopril 10 MG 10 MG t} 10 MG metFORMIN metFORMIN No BID metFORMIN HCl 1000 MG HCl 1000 MG HCl 1000 MG Atorvastati Atorvastati No QD Atorvastat n Calcium n Calcium in Calcium 40 MG 40 MG 40 MG Clopidogrel Clopidogrel No QD Clopidogre Bisulfate Bisulfate l 75 MG 75 MG Bisulfate 75 MG hydrOXYzine hydrOXYzine No hydrOXYzin HCl 25 MG HCl 25 MG e HCl 25 MG hydroCHLORO hydroCHLORO No QD hydroCHLOR thiazide thiazide Othiazide 12.5 MG 12.5 MG 12.5 MG ALPRAZolam ALPRAZolam No 1{table BID ALPRAZolam 0.5 MG 0.5 MG t} 0.5 MG hydroCHLORO hydroCHLORO No QD hydroCHLOR thiazide thiazide Othiazide 12.5 MG 12.5 MG 12.5 MG EPINEPHrine EPINEPHrine No EPINEPHrin 0.3 0.3 e 0.3 MG/0.3ML MG/0.3ML MG/0.3ML Lisinopril Lisinopril No 1{table QD Lisinopril 10 MG 10 MG t} 10 MG metFORMIN metFORMIN No BID metFORMIN HCl 1000 MG HCl 1000 MG HCl 1000 MG Atorvastati Atorvastati No Atorvastat n Calcium n Calcium in Calcium 40 MG 40 MG 40 MG ALPRAZolam ALPRAZolam No 1{table BID ALPRAZolam 0.5 MG 0.5 MG t} 0.5 MG rOPINIRole rOPINIRole No 1{table QD rOPINIRole HCl 4 MG HCl 4 MG t} HCl 4 MG hydrOXYzine hydrOXYzine No hydrOXYzin HCl 25 MG HCl 25 MG e HCl 25 MG Clopidogrel Clopidogrel No QD Clopidogre Bisulfate Bisulfate l 75 MG 75 MG Bisulfate 75 MG EPINEPHrine EPINEPHrine No EPINEPHrin 0.3 0.3 e 0.3 MG/0.3ML MG/0.3ML MG/0.3ML Atorvastati Atorvastati No Atorvastat n Calcium n Calcium in Calcium 40 MG 40 MG 40 MG hydrOXYzine hydrOXYzine No hydrOXYzin HCl 25 MG HCl 25 MG e HCl 25 MG Lisinopril Lisinopril No 1{table QD Lisinopril 10 MG 10 MG t} 10 MG metFORMIN metFORMIN No BID metFORMIN HCl 1000 MG HCl 1000 MG HCl 1000 MG ALPRAZolam ALPRAZolam No 1{table BID ALPRAZolam 0.5 MG 0.5 MG t} 0.5 MG rOPINIRole rOPINIRole No 1{table TID rOPINIRole HCl 2 MG HCl 2 MG t} HCl 2 MG Clopidogrel Clopidogrel No QD Clopidogre Bisulfate Bisulfate l 75 MG 75 MG Bisulfate 75 MG hydroCHLORO hydroCHLORO No QD hydroCHLOR thiazide thiazide Othiazide 12.5 MG 12.5 MG 12.5 MG ALPRAZolam ALPRAZolam No 1{table BID ALPRAZolam 0.5 MG 0.5 MG t} 0.5 MG Clopidogrel Clopidogrel No 1{table QD Clopidogre Bisulfate Bisulfate t} l 75 MG 75 MG Bisulfate 75 MG Symbicort Symbicort No Symbicort 160-4.5 160-4.5 160-4.5 MCG/ACT MCG/ACT MCG/ACT hydrOXYzine hydrOXYzine No 1{table TID hydrOXYzin HCl 25 MG HCl 25 MG t_as_ne e HCl 25 eded} MG rOPINIRole rOPINIRole No 1{table BID rOPINIRole HCl 4 MG HCl 4 MG t} HCl 4 MG Lisinopril Lisinopril No QD Lisinopril 10 MG 10 MG 10 MG hydroCHLORO hydroCHLORO No 1{table QD hydroCHLOR thiazide thiazide t_in_th Othiazide 12.5 MG 12.5 MG e_morni 12.5 MG ng} EPINEPHrine EPINEPHrine No EPINEPHrin 0.3 0.3 e 0.3 MG/0.3ML MG/0.3ML MG/0.3ML Flovent HFA Flovent HFA No 1{puff} BID Flovent 44 MCG/ACT 44 MCG/ACT HFA 44 MCG/ACT metFORMIN metFORMIN No BID metFORMIN HCl 1000 MG HCl 1000 MG HCl 1000 MG Atorvastati Atorvastati No Atorvastat n Calcium n Calcium in Calcium 40 MG 40 MG 40 MG ALPRAZolam ALPRAZolam No 1{table BID ALPRAZolam 0.5 MG 0.5 MG t} 0.5 MG Clopidogrel Clopidogrel No 1{table QD Clopidogre Bisulfate Bisulfate t} l 75 MG 75 MG Bisulfate 75 MG Symbicort Symbicort No Symbicort 160-4.5 160-4.5 160-4.5 MCG/ACT MCG/ACT MCG/ACT hydrOXYzine hydrOXYzine No 1{table TID hydrOXYzin HCl 25 MG HCl 25 MG t_as_ne e HCl 25 eded} MG rOPINIRole rOPINIRole No 1{table BID rOPINIRole HCl 4 MG HCl 4 MG t} HCl 4 MG Lisinopril Lisinopril No QD Lisinopril 10 MG 10 MG 10 MG hydroCHLORO hydroCHLORO No hydroCHLOR thiazide thiazide Othiazide 12.5 MG 12.5 MG 12.5 MG EPINEPHrine EPINEPHrine No EPINEPHrin 0.3 0.3 e 0.3 MG/0.3ML MG/0.3ML MG/0.3ML Flovent HFA Flovent HFA No 1{puff} BID Flovent 44 MCG/ACT 44 MCG/ACT HFA 44 MCG/ACT metFORMIN metFORMIN No BID metFORMIN HCl 1000 MG HCl 1000 MG HCl 1000 MG Atorvastati Atorvastati No 1{table QD Atorvastat n Calcium n Calcium t} in Calcium 40 MG 40 MG 40 MG rOPINIRole rOPINIRole No 1{table TID rOPINIRole HCl 2 MG HCl 2 MG t} HCl 2 MG Symbicort Symbicort No Symbicort 160-4.5 160-4.5 160-4.5 MCG/ACT MCG/ACT MCG/ACT hydroCHLORO hydroCHLORO No hydroCHLOR thiazide thiazide Othiazide 12.5 MG 12.5 MG 12.5 MG Clopidogrel Clopidogrel No 1{table QD Clopidogre Bisulfate Bisulfate t} l 75 MG 75 MG Bisulfate 75 MG Lisinopril Lisinopril No Lisinopril 10 MG 10 MG 10 MG metFORMIN metFORMIN No BID metFORMIN HCl 1000 MG HCl 1000 MG HCl 1000 MG Flovent HFA Flovent HFA 2021- No Flovent 44 MCG/ACT 44 MCG/ACT 04-12 HFA 44 00:00 MCG/ACT :00 Flovent HFA Flovent HFA 2020- No 1{puff} Flovent 44 MCG/ACT 44 MCG/ACT 04-27 HFA 44 00:00 MCG/ACT :00 Symbicort Symbicort 2020- No BID Symbicort 160-4.5 160-4.5 04-27 160-4.5 MCG/ACT MCG/ACT 00:00 MCG/ACT :00 Symbicort Symbicort 2020- No BID Symbicort 160-4.5 160-4.5 04-27 160-4.5 MCG/ACT MCG/ACT 00:00 MCG/ACT :00 Flovent HFA Flovent HFA 2020- No 1{puff} Flovent 44 MCG/ACT 44 MCG/ACT 04-27 HFA 44 00:00 MCG/ACT :00 Symbicort Symbicort 2020- No BID Symbicort 160-4.5 160-4.5 04-27 160-4.5 MCG/ACT MCG/ACT 00:00 MCG/ACT :00 Flovent HFA Flovent HFA 2020- No 1{puff} Flovent 44 MCG/ACT 44 MCG/ACT 04-27 HFA 44 00:00 MCG/ACT :00 Vital Signs Vital Name Observation Time Observation Value Comments Source height 2022-01-12 08:20:00 56 [in_i] [facility] weight 2022-01-12 08:20:00 107.2 [lb_av] [facility] temperature 2022-01-12 08:20:00 97.2 [degF] [facility] bmi 2022-01-12 08:20:00 24.03 kg/m2 [facility] oximetry 2022-01-12 08:20:00 97 % [facility] respiratory rate 2022-01-12 08:20:00 18 /min Comm on [facility] blood pressure 2022-01-12 08:20:00 146 mm[Hg] Common [facility] - systolic [facility] blood pressure 2022-01-12 08:20:00 62 mm[Hg] Common [facility] - diastolic [facility] Body temperature 2021-12-18 08:45:42 37.44 Giovanna Univ ersity of [place] [facility] Systolic blood 2021-12-18 08:39:00 143 mm[Hg] Univer sity of pressure [place] [facility] Diastolic blood 2021-12-18 08:39:00 90 mm[Hg] Unive rsity of pressure [facility] Branch Heart rate 2021-12-18 08:39:00 114 /min Universi ty of [facility] Respiratory rate 2021-12-18 08:39:00 20 /min Univ ersity of [facility] Branch Body height 2021-12-18 08:39:00 149.9 cm Universi ty of [facility] Branch Body weight 2021-12-18 08:39:00 48.988 kg Universi ty of [facility] BMI 2021-12-18 08:39:00 21.81 kg/m2 Universi ty of [facility] Oxygen saturation in 2021-12-18 08:39:00 93 /min University of Arterial blood by [place] [employer] [place] [facility] Pulse oximetry Branch Systolic blood 2021-12-18 03:00:00 140 mm[Hg] Univer sity of pressure [place] [facility] Diastolic blood 2021-12-18 03:00:00 90 mm[Hg] Unive rsity of pressure [facility] Heart rate 2021-12-18 03:00:00 99 /min Universi ty of [facility] Respiratory rate 2021-12-18 03:00:00 26 /min Univ ersity of [facility] Oxygen saturation in 2021-12-18 03:00:00 98 /min University of Arterial blood by [place] [employer] [place] jenifer Pulse oximetry Branch Body temperature 2021-12-18 02:23:00 37.5 Giovanna Univ ersity of [facility] Branch Body height 2021-12-18 02:23:00 149.9 cm Universi ty of [place] [facility] Body weight 2021-12-18 02:23:00 48.988 kg Universi ty of [place] [facility] BMI 2021-12-18 02:23:00 21.81 kg/m2 Universi ty of [facility] Branch height 2021-10-06 09:40:00 56 [in_i] Common S pirit - [facility] weight 2021-10-06 09:40:00 108.4 [lb_av] [facility] temperature 2021-10-06 09:40:00 97.9 [degF] Common S pirit - [facility] bmi 2021-10-06 09:40:00 24.3 kg/m2 Common S pirit [facility] oximetry 2021-10-06 09:40:00 94 % Common S pirit [facility] respiratory rate 2021-10-06 09:40:00 16 /min Comm on Spirit - [facility] blood pressure 2021-10-06 09:40:00 139 mm[Hg] Common Spirit - systolic [facility] blood pressure 2021-10-06 09:40:00 70 mm[Hg] Common Spirit - diastolic [facility] height 2021-04-19 09:00:00 56 [in_i] Common [facility] weight 2021-04-19 09:00:00 113.5 [lb_av] Common [facility] temperature 2021-04-19 09:00:00 97.5 [degF] Common S pirit [facility] bmi 2021-04-19 09:00:00 25.44 kg/m2 [facility] S [facility] oximetry 2021-04-19 09:00:00 92 % [facility] 2021-04-19 09:00:00 128 mm[Hg] Common Spirit - systolic [facility] blood pressure 2021-04-19 09:00:00 86 mm[Hg] Common Spirit - diastolic [facility] height 2021-01-27 13:20:00 56 [in_i] Common S pirit [facility] weight 2021-01-27 13:20:00 117 [lb_av] Common S pirit [facility] temperature 2021-01-27 13:20:00 97.4 [degF] Common S pirit [facility] bmi 2021-01-27 13:20:00 26.23 kg/m2 Common S pirit - [facility] oximetry 2021-01-27 13:20:00 93 % Common S pirit - [facility] respiratory rate 2021-01-27 13:20:00 18 /min Comm on Spirit - [facility] blood pressure 2021-01-27 13:20:00 117 mm[Hg] Common Spirit - systolic [facility] blood pressure 2021-01-27 13:20:00 52 mm[Hg] Common [facility] - diastolic [facility] Procedures Procedure Date / Time Performing Clinician Source Performed [id number] 2022-06-12 00:00:00 [facility] [id number] 2022-06-12 00:00:00 [facility]ZE [facility] [id number] 2022-06-12 00:00:00 KARZE [facility] NON-[facility] ORDERS 2022-05-30 06:01:00 Doctor Unassigned, No [facility] Name Medical Branch [id number] 2022-04-14 00:00:00 CHEZU [facility] [id number] 2022-04-14 00:00:00 [facility]U [facility] [id number] 2022-04-14 00:00:00 [facility] [id number] 2022-04-14 00:00:00 [facility]ZU [facility] [id number] 2022-04-14 00:00:00 [facility]U [facility] [id number] 2022-04-14 00:00:00 [facility]ZU [facility] [id number] 2022-04-14 00:00:00 [facility] [id number] 2022-04-14 00:00:00 CHEZU [facility] [id number] 2022-04-12 00:00:00 RASSA [facility] CONSENT/REFUSAL FOR 2021-12-18 08:36:35 Doctor Unassigned, No Un [facility] DIAGNOSIS AND TREATMENT Name Medical Branch COMP. METABOLIC PANEL 2021-12-18 03:08:00 Umair Bailey [facility] ([id number]) Medical Branch CBC WITH DIFF 2021-12-18 03:08:00 Umair Bailey [facility] COVID-19 (ID NOW RAPID 2021-12-18 03:08:00 Umair Bailey [facility] TESTING) [facility] URINE DRUG ([id number]) 2021-12-18 02:39:00 [facility] Medical Bra nch SCREEN URINALYSIS 2021-12-18 02:39:00 Umair Bailey [facility] NOTICE OF PRIVACY 2021-12-18 02:08:20 Doctor Unassigned, No [facility] PRACTICES Name [facility] Branch CONSENT/REFUSAL FOR 2021-12-18 02:07:28 Doctor Unassigned, No Un [facility] DIAGNOSIS AND TREATMENT Name [facility] [facility] Encounters Start End Encounter Admission Attending Care Care Encounter Source Date/Time Date/Time Type Type Clinicians Facility Department ID 2022-04-12 Outpatient Benedicto, SIMONE STLC [id number] Common 10:10:01 Ariadne [id number] [facility] 2022-01-04 Outpatient SIMONE Sheikh STLC [id number] Common 07:52:00 Ariadne 25276 [facility] 2021-11-30 Inpatient CORRINE Grey, HCACL HCACL [id number] HCA 13:00:00 Manny [id number] [facility] 2021-10-04 Outpatient SIMONE Sheikh STMARILEELC [id number] Common 09:48:03 Ariadne [facility] 2021-07-15 Outpatient Benedicto, STMIKE STLMLC [id number] Common 08:00:02 Ariadne 46852 [facility] 2021-06-29 Outpatient Benedicto STMIKE STLC [id number] Common 13:43:19 Ariadne 58777 [facility] 2022-06-27 2022-07-02 Inpatient Jorje HICKMAN [facility] MED 9367 [facility] 21:14:00 12:20:00 SADIQ 2022-06-27 2022-06-27 Outpatient KATIE [facility] MARI 9370 [facility] 18:16:00 23:59:00 SIENNA 2022-06-10 2022-06-12 Inpatient KIRSTEN Valenzuela HCACL INTE.02 [id number] [facility] 18:52:00 17:47:00 Jonathon 95 [facility] 2022-06-06 2022-06-06 Outpatient CORRINE Ghosh HCACL DAYS [id number] [facility] 08:00:00 08:01:00 Rayne 92 [facility] 2022-05-31 2022-05-31 Outpatient R UNKNOWN, [facility] [id number] Univers 10:20:30 23:59:00 ATTENDING juan carlos [facility] 2022-05-30 2022-05-30 Orders Doctor SULLIVAN [id number] Univers 00:00:00 00:00:00 Only Unassigned, LUPILLO 350.1.13.10 ity of [place] [facility] 4.2.7.2.686 Je as [id number] [address] 2022-05-23 2022-05-23 (TEL) STLMLC STLMLC [id number] Co mmon 00:00:00 00:00:00 [facility] 2022-04-14 2022-04-15 Inpatient Vonda Salas HCACL INTE.02 [id number] [facility] 08:50:00 14:05:00 05 [facility] 2022-01-12 2022-01-12 OFFICE STLMLC STLMLC [id number] Co mmon 00:00:00 00:00:00 VISIT Spirit ESTAB PT - [facility] L[facility]EL [facility] 2022-01-04 2022-01-04 (TEL) STLMLC STLMLC [id number] Co mmon 00:00:00 00:00:00 [facility] 2021-12-18 2021-12-18 Emergency X SINGER RUST ERT [id number] Univers 03:37:00 04:23:00 ANDREA loving [facility] 2021-12-18 2021-12-18 Emergency Singer RUST [id number] Univers 03:37:00 04:23:00 Andrea SANDHU 350.1.13.10 i ty [facility] 4.2.7.2.686 [facility] [phone] [place] [address] [address] 2021-12-17 2021-12-17 Emergency Leo RUST [id number] Univers 21:28:00 23:30:00 Umair SANDHU 350.1.13.10 ity muriel [facility] 4.2.7.2.686 [facility] [id number] [place] [address] [address] 2021-12-17 2021-12-17 Emergency [facility] [id number] Univers 21:28:00 23:30:00 UMAIR loving [facility] 2021-11-30 2021-11-30 Outpatient CORRINE GreyRONALDCL OUTD [id number] [facility] 05:11:00 05:11:00 Manny 13 [facility] 2021-11-27 2021-11-27 (TEL) STLMLC STLMLC [id number] Co mmon 00:00:00 00:00:00 [facility] 2021-10-06 2021-10-06 OFFICE STLMLC STLMLC [id number] Co mmon 00:00:00 00:00:00 VISIT Spirit ESTAB PT - [facility] LEV[facility] 4 [facility] 2021-04-26 2021-04-26 Inpatient CORRINE Ghosh HCACL DAYS [id number] [facility] 05:15:00 05:15:00 Rayne 37 [facility] 2021-04-19 2021-04-19 OFFICE STLMLC STLMLC [id number] Co mmon 00:00:00 00:00:00 VISIT Spirit ESTAB PT - [facility] L[facility] 4 [facility] 2021-04-11 2021-04-11 (TEL) STLMLC STLMLC [id number] Co mmon 00:00:00 00:00:00 Spirit [facility] 2021-01-27 2021-01-27 OFFICE STLMLC STLMLC [id number] Co mmon 00:00:00 00:00:00 VISIT NEW Doug it PT LEVEL 4 - [facility] 2020-01-23 2020-01-23 Outpatient R GRECIA ESPINOSA [facility] [id number] Univers 13:00:00 13:00:00 ity of [facility] 2019-12-04 2019-12-04 Orders Doctor NATE [id number] 00:00:00 00:00:00 Only Unassigned, LUPILLO 350.1.13.10 [place] 4.2.7.2.686 [id number] Results Test Description Test Time Test Comments Results Result Comments Source GLUCOSE BEDSIDE 2022-06-12 16:47:00 Test Item Value Reference Range Interpretation Comme [facility] GLUCOSE BEDSIDE (test code = 100 MG/DL 70-110 N Performed by certified 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[facility]) [facility] GLUCOSE [id number] 13:58:00 Test Item Value Reference Range Interpretation Comments GLUCOSE BEDSIDE (test 86 MG/DL 70-110 N [facility] med by certified code = GLUBED) 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 [id number] 11:50:00 Test Item Value Reference Range Interpretation Comments GLUCOSE BEDSIDE (test 81 MG/DL 70-110 N Perfor med by certified code = GLUBED) 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 [id number] 08:16:00 Test Item Value Reference Range Interpretation Comments GLUCOSE BEDSIDE (test 86 MG/DL 70-110 N Perfor med by certified code = GLUBED) 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[facility] CBC W/O [id number] 05:37:00 Test Item Value Reference Range Interpretation Comments WHITE BLOOD CELL (test code = 7.7 x10 3/uL 4.5-11.0 N WBC) RED BLOOD CELL (test code = 3.34 x10 6/uL 3.54-5.02 L RBC) HEMOGLOBIN (test code = HGB) 8.2 g/dL 11.0-15.0 L HEMATOCRIT (test code = HCT) 25.7 % 33.0-45.0 L MEAN CELL VOLUME (test code = 76.9 fL 81.0-99.0 L MCV) MEAN CELL HGB (test code = MCH) 24.6 pg 27.0-33.0 L MEAN CELL HGB CONCETRATION 31.9 g/dL 33.0-37.0 L (test code = MCHC) RED CELL DISTRIBUTION WIDTH CV 23.1 % 11.5-14.5 H (test code = RDW) RED CELL DISTRIBUTION WIDTH SD 64.3 fL 37.0-54.0 H (test code = RDW-SD) PLATELET COUNT (test code = 270 x10 3/uL 150-400 N PLT) MEAN PLATELET VOLUME (test code 9.4 fL 7.0-9.0 H = MPV) BASIC METABOLIC [id number] 05:21:00 Test Item Value Reference Range Interpretation Comments SODIUM (test code = 137 mEq/L 134-147 N NA) POTASSIUM (test code 4.4 mEq/L 3.4-5.0 N = K) CHLORIDE (test code 107 mEq/L 100-108 N = CL) CARBON DIOXIDE (test 23 mEq/l 21-33 N code = CO2) ANION GAP (test code 11 0-20 N = GAP) GLUCOSE (test code = 127 mg/dL 70-110 H GLU) BLOOD UREA NITROGEN 13 mg/dL 7-18 (test code = BUN) GLOMERULAR 47.5 70-80 L The Glomerular FILTRATION RATE Filtration R ate is a (test code = GFR) calculated parameterbased on serum Creatinine, pat ient age and sex. GFR va luesless than 60 mL/min/ 1.73 square meters a re indicative ofCh ronic Kidney Disease. Values less than 15 mL/min/1.73squa re meters indicate Kidney failure. The calculation forGFR is based on the CKD-EPI (2020) calculat ion. This formulais race indifferent and is the recommended for lucila for GFRby the [facility] on for Adults.The GFR will not calculate if th e sex is unknown or if thepatient's ag e is <18 years. CREATININE (test 1.2 mg/dL 0.6-1.3 N code = CREAT) CALCIUM (test code = 8.4 mg/dL 8.0-10.5 N CA) GLUCOSE [id number] 23:44:00 Test Item Value Reference Range Interpretation Comments GLUCOSE BEDSIDE (test 142 MG/DL 70-110 H Perfor med by certified code = GLUBED) 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[facility] GLUCOSE [id number] 22:14:00 Test Item Value Reference Range Interpretation Comments GLUCOSE BEDSIDE (test 45 MG/DL 70-110 L Perfor med by certified code = GLUBED) 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 [id number] 17:05:00 Test Item Value Reference Range Interpretation Comments GLUCOSE BEDSIDE (test 95 MG/DL 70-110 N Perfor med by certified code = GLUBED) 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 [id number] 09:26:00 Test Item Value Reference Range Interpretation Comments GLUCOSE BEDSIDE (test 108 MG/DL 70-110 N Perfor med by certified code = GLUBED) 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[facility] TROP-I HIGH [id number] 03:07:00 Test Item Value Reference Range Interpretation Comments TROP-I HIGH 593 ng/L 0-34 HH CAUTION: Units of the SENSITIVITY (test current te st methodology code = TROPIHS) (ng/L) diffe rfrom the prior test meth odology (ng/mL) by a fa ctor of 1000. 99t h Percentile Uppe r Reference Limit (URL): Fe males: 34 ng/LMales: 54 n g/L In order to distin guish acute elevations of h igh sensitivitytrop onin from other clinical conditions, the FourthUnive rsal Definition of M yocardial Infarction stressesclinica l assessment and the demonstration o f a rise and/orfall in s erial troponin result s above the URL. These resu lts were obtained using Siemens [employer] IM TnI Hreagent. Results from di fferent methodologies s hould not becompared to o ne another as quantitative results and URLs mayvar y by method. TROP-I HIGH [id number] 23:53:00 Test Item Value Reference Range Interpretation Comments TROP-I HIGH 541 ng/L 0-34 HH CAUTION: Units of the SENSITIVITY (test current te st methodology code = TROPIHS) (ng/L) diffe rfrom the prior test meth odology (ng/mL) by a fa ctor of 1000. 99t h Percentile Uppe r Reference Limit (URL): Fe males: 34 ng/LMales: 54 n g/L In order to distin guish acute elevations of h igh sensitivitytrop onin from other clinical conditions, the FourthUnive rsal Definition of M yocardial Infarction stressesclinica l assessment and the demonstration o f a rise and/orfall in s erial troponin result s above the URL. These resu lts were obtained using [employer] IM TnI Hreagent. Results from di fferent methodologies s hould not becompared to o ne another as quantitative results and URLs mayvar y by method. GLUCOSE [id number] 23:32:00 Test Item Value Reference Range Interpretation Comments GLUCOSE BEDSIDE (test 158 MG/DL 70-110 H Perfor med by certified code = GLUBED) 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[facility] LIPOPROTEIN [id number] 18:26:00 Test Item Value Reference Range Interpretation Comments LIPOPROTEIN LDL 50.8 mg/dL 0-100 N <100 OPTIMAL 100-129 NEAR (test code = LDL) OPTIMAL/AB OVE [id number] HIGH>CD=560 RONDA Y HIGH*Guidelines provided by the National Cholesterol EducationProgra m Adult Treatment Panel III PROTHROMBIN [id number] 18:14:00 Test Item Value Reference Range Interpretation Comments PROTHROMBIN TIME 11.9 SECONDS 9.3-12.9 N PATIENT (test code = PTP) INTERNATIONAL NORMAL 1.1 0.8-1.2 N TARGET INR BY RATIO (test code = INDICATIO N Indication INR) INR1. Prophylax is of venous thrombos is 2.0 - 3.0 (orthoped ic surgery), Proph ylaxis of venous throm bosis (other than hig h-risk surgery), Treat ment of Deep Vein Thrombosis/Pulm onary Embolism, Preve ntion of systemic emb olism - Tissue heart va lves, Acute Myocardia l Infarction (to prevent systemic emboli sm), Valvular heart disease, Atrial Fibrillation, Bileaflet mecha nical valve in aortic position.2. Mec hanical prosthetic valv es (high risk), 2. 5 - 3.5 Presence of Lup us Anticoagulant o r Antiphospholipi d Antibodies, Pre vention of systemic emb olism - Acute Myocardia l Infarction (to prevent recurrent infar ct). THROMBOPLASTIN TIME [id number] 18:14:00 Test Item Value Reference Range Interpretation Comments THROMBOPLASTIN TIME 29.0 Seconds 25.0-39.5 N Therape utic Range: PARTIAL (test code = 50.4 - 88.3 Seconds PTT) Effective 09/17/2018 BASIC METABOLIC [id number] 18:11:00 Test Item Value Reference Range Interpretation Comments SODIUM (test code = 134 mEq/L 134-147 N NA) POTASSIUM (test code 4.4 mEq/L 3.4-5.0 N = K) CHLORIDE (test code 105 mEq/L 100-108 N = CL) CARBON DIOXIDE (test 23 mEq/l 21-33 N code = CO2) ANION GAP (test code 10 0-20 N = GAP) GLUCOSE (test code = 106 mg/dL 70-110 N GLU) BLOOD UREA NITROGEN 24 mg/dL 7-18 H (test code = BUN) GLOMERULAR 52.7 70-80 L The Glomerular FILTRATION RATE Filtration R ate is a (test code = GFR) calculated parameterbased on serum Creatinine, pat ient age and sex. GFR va luesless than 60 mL/min/ 1.73 square meters a re indicative ofCh ronic Kidney Disease. Values less than 15 mL/min/1.73squa re meters indicate Kidney failure. The calculation forGFR is based on the CKD-EPI (2020) calculat ion. This formulais race indifferent and is the recommended for lucila for GFRby the Natio nal Kidney Foundati on for Adults.The GFR will not calculate if th e sex is unknown or if thepatient's ag e is <18 years. CREATININE (test 1.1 mg/dL 0.6-1.3 N code = CREAT) CALCIUM (test code = 8.2 mg/dL 8.0-10.5 N CA) TROP-I HIGH [id number] 18:11:00 Test Item Value Reference Range Interpretation Comments TROP-I HIGH 607 ng/L 0-34 HH Critical result called to SENSITIVITY (test DEE MIGUEL RODRIGUEZ, RNby code = TROPIHS) G.LAB.ATD at 1810 06/10/22Nurse r ead back result and tech confirmed it's correct? Y ESCAUTION: Units of the cu rrent test methodology (ng /L) differfrom the prior test methodology (ng /mL) by a factor of 1000. 99t h Percentile Uppe r Reference Limit (URL): Fe males: 34 ng/LMales: 54 n g/L In order to distin guish acute elevations of h igh sensitivitytrop onin from other clinical conditions, the FourthUnive rsal Definition of M yocardial Infarction stressesclinica l assessment and the demonstration o f a rise and/orfall in s erial troponin result s above the URL. These resu lts were obtained using Siemens [employer] IM TnI Hreagent. Results from di fferent methodologies s hould not becompared to o ne another as quantitative results and URLs mayvar y by method. CBC W/AUTO [id number] 17:43:00 Test Item Value Reference Range Interpretation Comments WHITE BLOOD CELL (test code = 10.0 x10 3/uL 4.5-11.0 N WBC) RED BLOOD CELL (test code = 3.05 x10 6/uL 3.54-5.02 L RBC) HEMOGLOBIN (test code = HGB) 7.3 g/dL 11.0-15.0 L HEMATOCRIT (test code = HCT) 24.2 % 33.0-45.0 L MEAN CELL VOLUME (test code = 79.3 fL 81.0-99.0 L MCV) MEAN CELL HGB (test code = MCH) 23.9 pg 27.0-33.0 L MEAN CELL HGB CONCETRATION 30.2 g/dL 33.0-37.0 L (test code = MCHC) RED CELL DISTRIBUTION WIDTH CV 24.9 % 11.5-14.5 H (test code = RDW) RED CELL DISTRIBUTION WIDTH SD 71.1 fL 37.0-54.0 H (test code = RDW-SD) PLATELET COUNT (test code = 262 x10 3/uL 150-400 N PLT) MEAN PLATELET VOLUME (test code 9.0 fL 7.0-9.0 N = MPV) NEUTROPHIL % (test code = NT%) 79.0 % 56.0-77.0 H IMMATURE GRANULOCYTE % (test 0.4 % 0.0-2.0 N code = IG%) LYMPHOCYTE % (test code = LY%) 15.0 % 14.0-32.0 N MONOCYTE % (test code = MO%) 4.0 % 4.8-9.0 L EOSINOPHIL % (test code = EO%) 0.9 % 0.3-3.7 N BASOPHIL % (test code = BA%) 0.7 % 0.0-2.0 N NUCLEATED RBC % (test code = 0.0 % 0-0 N NRBC%) NEUTROPHIL # (test code = NT#) 7.92 x10 3/uL 2.0-7.6 H IMMATURE GRANULOCYTE # (test 0.04 x10 3/uL 0.00-0.03 H code = IG#) LYMPHOCYTE # (test code = LY#) 1.50 x10 3/uL 1.0-3.8 N MONOCYTE # (test code = MO#) 0.40 x10 3/uL 0.1-0.8 N EOSINOPHIL # (test code = EO#) 0.09 x10 3/uL 0.0-0.2 N BASOPHIL # (test code = BA#) 0.07 x10 3/uL 0.0-0.2 N NUCLEATED RBC # (test code = 0.00 x10 3/uL 0.0-0.1 N NRBC#) MANUAL DIFF REQUIRED (test code NO = MDIFF) - XR CHEST 1 [id number] 00:00:00 [facility] MANJIT [facility]ATT : 1950 Sex: F FAX: Hima Sheikha Sarah DEBI [phone] [place]: St: REG FAX: John Saavedra MD FAX: Elena Trent APR [phone] Name: MANJIT BHATT [facility] : 1950 Age/S: 72/F [address] [place] [address] Unit #: [id number]: [place] [address] Phys: Elena Trent APRNNP Acct: [id number] Dis Date: Status: REG ER PHONE #: [phone] Exam Date: 06/10/2022 1710 FAX #: [phone] Reason: anemia? EXAMS: CPT CODE: [id number] XR CHEST 1 V [id number] PROCEDURE INFORMATION: Exam: XR Chest Exam date and time: 06/10/2022 5:14 PM Age: 72 years old Clinical indication: Pain; Other: Anemia TECHNIQUE: Imaging protocol: Radiologic exam of the chest. Views: 1 view. COMPARISON: CR XR CHEST 1V 06/06/2022 10:50 AM FINDINGS: Lungs: See "Pleural spaces" finding. Pleural spaces: Blunting of the right costophrenic angle, likely secondary to trace effusion/atelectasis. Heart/Mediastinum: Mild cardiomegaly. Vasculature: Atherosclerotic calcification of the thoracic aorta. Bones/joints: Unremarkable. IMPRESSION: Trace right pleural e ffusion/atelectasis. Mild cardiomegaly. at 1824 Reported and signed by: Janice Hanson M.D. CC: Ariadne Sheikh NP; John Saavedra MD; Elena Trent Technologist: Gia Priest, RT(R); RT Nicole(R) Conchita Date /Time/By: 06/10/2022 (1823) : By: [email or web address] Orig Print D/T: S: 06/10/2022 (1823) PAGE 1 Signed Report- DOP ART PSYCHIATRIC NP LEVEL [id number] 00:00:00 [facility] : 1950 Sex: F Name: MANJIT BHATT [facility] : 1950 Age/S: 72 / F [address] [place] [address] Unit #: [id number] Loc: [place] [address] Phys: Elena Trent Acct: [id number] Dis Date: Status: ADM IN PHONE #: [phone] Exam Date: 06/10/20221826 FAX #: [phone] Reason: recent lle angiocath, decreased pulses EXAMS: CPT CODE: [id number] DOP ART PSYCHIATRIC NP LEVEL LENA [id number] PROCEDURE INFORMATION: Exam: US Duplex Lower Extremity Arteries Exam date and time: 06/10/2022 6:00 PM Age: 72 years old Clinical indication: Screening exam; Recent left lower extremity arterial intervention, decreased pulses TECHNIQUE: Imaging protocol: Real-time ultrasound scan of the arteries of the bilateral lower extremities with 2-D oneal scale, color Doppler flow and spectral waveform analysis. Images documented and saved. COMPARISON: No relevant prior studies available. * BILATERAL LOWER EXTREMITY ARTERIAL DOPPLER TECHNIQUE: Color duplex (color flow, oneal scale, and spectral Doppler) imaging of the arterial system of the lower extremities was performed. FINDINGS: * Right lower extremity: Right Common femoral artery: Strong monophasic flow. The peak systolic velocity is 239 cm/sec. Right Superficial femoral artery, proximal: Minimal very low amplitude pulsatile flow. The peak systolic velocity is 9 cm/sec. Right Superficial femoral artery, midportion: Strong monophasic flow. The peak systolic velocity is 132 cm/sec. Right Superficial femoral artery, distal: Moderate monophasic flow. The peak systolic velocity is 59 cm/sec. Right Popliteal artery: Moderate monophasic flow. The peak systolic velocity is 67 cm/sec. Right Posterior tibial artery at the ankle: Weak to moderate monophasic flow. The peak systolic velocityis 34 cm/sec. Right Dorsalis pedis artery at the ankle: Weak to moderate monophasic flow. The peak systolic velocity is 24 cm/sec. * Left lower extremity: Left Common femoral artery: A stent is noted in the region of the left common femoral artery. There is strong monophasic flow. The peak systolic velocity is 94 cm/sec. Left Superficial femoral artery, proximal: Strong monophasic flow. The peak systolic velocity is 92 cm/sec. Left Superficial femoral artery, midportion: Strong monophasic flow. The peak systolic velocity is 89 cm/sec. Left Superficial femoral artery, distal: Strong monophasic flow. The peak systolic velocity is 122 cm/sec. Left Popliteal artery: A popliteal artery stent is noted. There is strong monophasic flow.. The peak systolic velocity is 140 cm/sec. Left Posterior tibial artery at the ankle: Strong monophasic flow. PAGE 1 Signed Report (CONTINUED) Name: MANJIT BHATT [facility] : 1950 Age/S: 72 / F [address] [place] [address] Blvd Unit #: [id number] Loc: Anjel [id number] Phys: Elena Trent APRNNMary Acct: [id number] Dis Date: Status: ADM IN PHONE #: [phone] Exam Date: 06/10/20221826 FAX #: [phone] Reason: recent lle angiocath, decreased pulses EXAMS: CPT CODE: [id number] DOP ART PSYCHIATRIC NP LEVEL LENA [id number] (Continued) The peak systolic velocity is 118 cm/sec. Left Dorsalis pedis artery at the ankle: Moderate monophasic flow. The peak systolic velocity is 25 cm/sec. IMPRESSION: 1. The presence of monophasic flow in both common femoral arteries would suggest a mild degree of inflow impairment. It is noted there is strong monophasic flow in both common femoral arteries. 2. There appears to be severe disease and severe stenosis involving the proximal rightsuperficial femoral artery. There is good monophasic flow in the mid right superficial femoral artery probably related to collaterals. 3. Overall, there is probable moderate vascular disease on the right including inflow impairment and proximal superficial femoral artery disease. There is also probable mild runoff disease. 4. Stent is noted in the region of the left common femoral artery which appears to be patent. 5. Stent is noted in the left popliteal artery which appears to be patent. 6. Good strong monophasic left posterior tibial waveforms are noted which would indicate there is good flow through the stents and adequate vascular ization of the left lower extremity. There is overall probable mild multilevel obstructive vascular disease involving the left lower extremity Please correlate these findings with clinical information, clinical examination, and ankle -- brachial ratios. at 1919 Reported and signed by: Armando Light M.D. 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[facility] BASIC METABOLIC [id number] 12:21:00 Test Item Value Reference Range Interpretation Comments SODIUM (test code = 134 mEq/L 134-147 N NA) POTASSIUM (test code 4.0 mEq/L 3.4-5.0 N = K) CHLORIDE (test code 105 mEq/L 100-108 N = CL) CARBON DIOXIDE (test 28 mEq/l 21-33 N code = CO2) ANION GAP (test code 5 0-20 N = GAP) GLUCOSE (test code = 87 mg/dL 70-110 N GLU) BLOOD UREA NITROGEN 14 mg/dL 7-18 N (test code = BUN) GLOMERULAR 59.1 70-80 L The Glomerular FILTRATION RATE Filtration R ate is a (test code = GFR) calculated parameterbased on serum Creatinine, pat ient age and sex. GFR va luesless than 60 mL/min/ 1.73 square meters a re indicative ofCh ronic Kidney Disease. Values less than 15 mL/min/1.73squa re meters indicate Kidney failure. The calculatio n forGFR is based on the CKD-EPI (2020) calculat ion. This formulais race indifferent and is the recommended for lucila for GFRby the Natio nal Kidney Foundati on for Adults.The GFR will not calculate if th e sex is unknown or if thepatient's ag e is <18 years. CREATININE (test 1.0 mg/dL 0.6-1.3 N code = CREAT) CALCIUM (test code = 8.6 mg/dL 8.0-10.5 N CA) CBC W/AUTO [id number] 12:16:00 Test Item Value Reference Range Interpretation Comments WHITE BLOOD CELL (test code = 9.2 x10 3/uL 4.5-11.0 N WBC) RED BLOOD CELL (test code = 4.50 x10 6/uL 3.54-5.02 N RBC) HEMOGLOBIN (test code = HGB) 9.4 g/dL 11.0-15.0 L HEMATOCRIT (test code = HCT) 30.7 % 33.0-45.0 L MEAN CELL VOLUME (test code = 68.2 fL 81.0-99.0 L MCV) MEAN CELL HGB (test code = MCH) 20.9 pg 27.0-33.0 L MEAN CELL HGB CONCETRATION 30.6 g/dL 33.0-37.0 L (test code = MCHC) RED CELL DISTRIBUTION WIDTH CV 21.3 % 11.5-14.5 H (test code = RDW) RED CELL DISTRIBUTION WIDTH SD 51.4 fL 37.0-54.0 N (test code = RDW-SD) PLATELET COUNT (test code = 481 x10 3/uL 150-400 H PLT) MEAN PLATELET VOLUME (test code 9.0 fL 7.0-9.0 N = MPV) NEUTROPHIL % (test code = NT%) 64.1 % 56.0-77.0 N IMMATURE GRANULOCYTE % (test 0.3 % 0.0-2.0 N code = IG%) LYMPHOCYTE % (test code = LY%) 25.0 % 14.0-32.0 N MONOCYTE % (test code = MO%) 7.0 % 4.8-9.0 N EOSINOPHIL % (test code = EO%) 2.6 % 0.3-3.7 N BASOPHIL % (test code = BA%) 1.0 % 0.0-2.0 N NUCLEATED RBC % (test code = 0.0 % 0-0 N NRBC%) NEUTROPHIL # (test code = NT#) 5.90 x10 3/uL 2.0-7.6 N IMMATURE GRANULOCYTE # (test 0.03 x10 3/uL 0.00-0.03 N code = IG#) LYMPHOCYTE # (test code = LY#) 2.30 x10 3/uL 1.0-3.8 N MONOCYTE # (test code = MO#) 0.64 x10 3/uL 0.1-0.8 N EOSINOPHIL # (test code = EO#) 0.24 x10 3/uL 0.0-0.2 H BASOPHIL # (test code = BA#) 0.09 x10 3/uL 0.0-0.2 N NUCLEATED RBC # (test code = 0.00 x10 3/uL 0.0-0.1 N NRBC#) MANUAL DIFF REQUIRED (test code NO = MDIFF) RBC [id number] 12:16:00 Test Item Value Reference Range Interpretation Comments ANISOCYTOSIS (test code = ANISO) 3+ POLYCHROMASIA (test code = POLC) 1+ HYPOCHROMIA (test code = HYPO) 2+ POIKILOCYTOSIS (test code = POIK) 1+ MICROCYTOSIS (test code = MICR) 2+ MACROCYTOSIS (test code = MACR) 2+ SCHISTOCYTES (test code = SERENITY) FEW PROTHROMBIN [id number] 12:05:00 Test Item Value Reference Range Interpretation Comments PROTHROMBIN TIME 19.0 SECONDS 9.3-12.9 H PATIENT (test code = PTP) INTERNATIONAL NORMAL 1.7 0.8-1.2 H TARGET INR BY RATIO (test code = INDICATIO N Indication INR) INR1. Prophylax is of venous thrombos is 2.0 - 3.0 (orthoped ic surgery), Proph ylaxis of venous throm bosis (other than hig h-risk surgery), Treat ment of Deep Vein Thrombosis/Pulm onary Embolism, Preve ntion of systemic emb olism - Tissue heart va lves, Acute Myocardia l Infarction (to prevent systemic emboli sm), Valvular heart disease, Atrial Fibrillation, Bileaflet mecha nical valve in aortic position.2. Mec hanical prosthetic valv es (high risk), 2. 5 - 3.5 Presence of Lup us Anticoagulant o r Antiphospholipi d Antibodies, Pre vention of systemic emb olism - Acute Myocardia l Infarction (to prevent recurrent infar ct). 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 : 1950 Age/S: 72/F [address] [place] [address] Unit #: [id number] Loc: [place] [address] Phys: Rayne Ghosh MD Acct: [id number] Dis Date: Status: PRE SDC PHONE #: [phone] Exam Date: 06/06/2022 1126 FAX #: Reason: PREOP ORDERS EXAMS: CPT CODE: [id number] XR CHEST 1 V [id number] PROCEDURE INFORMATION: Exam: XR Chest Exam date and time: 06/06/2022 10:50 AM Age: 72 years old Clinical indication: Pre-operative exam; Respiratory screening exam; Additional info: Preop orders TECHNIQUE: Imaging protocol: Radiologic exam of the chest. Views: 1 view. COMPARISON: DX XR CHEST 2 V 04/11/2022 11:16 AM FINDINGS: Lungs: Normal lung volumes. No consolidation. Pleural spaces: Unremarkable. No pleural effusion. No pneumothorax. Heart/Mediastinum: Heart size is within normal limits. Vasculature is unremarkable. Bones/joints: Unremarkable. IMPRESSION: No acute cardiopulmonary findings. at 1246 Reported and signed by: Marty Gonzalez M.D. 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 [id number] 21:25:00 Test Item Value Reference Range Interpretation Comments GLUCOSE BEDSIDE (test 119 MG/DL 70-110 H Perfor med by certified code = GLUBED) 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 [id number] 18:45:00 Test Item Value Reference Range Interpretation Comments GLUCOSE BEDSIDE (test 103 MG/DL 70-110 N Perfor med by certified code = GLUBED) 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 [id number] 12:35:00 Test Item Value Reference Range Interpretation Comments GLUCOSE BEDSIDE (test 86 MG/DL 70-110 N Perfor med by certified code = GLUBED) 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 [id number] 08:10:00 Test Item Value Reference Range Interpretation Comments GLUCOSE BEDSIDE (test 95 MG/DL 70-110 N Perfor med by certified code = GLUBED) 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[facility] BASIC METABOLIC [id number] 04:44:00 Test Item Value Reference Range Interpretation Comments SODIUM (test code = 137 mEq/L 134-147 N NA) POTASSIUM (test code 4.5 mEq/L 3.4-5.0 N = K) CHLORIDE (test code 103 mEq/L 100-108 N = CL) CARBON DIOXIDE (test 27 mEq/l 21-33 N code = CO2) ANION GAP (test code 11 0-20 N = GAP) GLUCOSE (test code = 102 mg/dL 70-110 N GLU) BLOOD UREA NITROGEN 23 mg/dL 7-18 H (test code = BUN) GLOMERULAR 47.5 70-80 L The Glomerular FILTRATION RATE Filtration R ate is a (test code = GFR) calculated parameterbased on serum Creatinine, pat ient age and sex. GFR va luesless than 60 mL/min/ 1.73 square meters a re indicative ofCh ronic Kidney Disease. Values less than 15 mL/min/1.73squa re meters indicate Kidney failure. The calculation forGFR is based on the CKD-EPI (2020) calculat ion. This formulais race indifferent and is the recommended for lucila for GFRby the Nat nal Kidney Foundati on for Adults.The GFR will not calculate if th e sex is unknown or if thepatient's ag e is <18 years. CREATININE (test 1.2 mg/dL 0.6-1.3 N code = CREAT) CALCIUM (test code = 8.7 mg/dL 8.0-10.5 N CA) CBC W/AUTO [id number] 04:31:00 Test Item Value Reference Range Interpretation Comments WHITE BLOOD CELL (test code = 10.9 x10 3/uL 4.5-11.0 N WBC) RED BLOOD CELL (test code = 4.31 x10 6/uL 3.54-5.02 N RBC) HEMOGLOBIN (test code = HGB) 9.0 g/dL 11.0-15.0 L HEMATOCRIT (test code = HCT) 29.2 % 33.0-45.0 L MEAN CELL VOLUME (test code = 67.7 fL 81.0-99.0 L MCV) MEAN CELL HGB (test code = MCH) 20.9 pg 27.0-33.0 L MEAN CELL HGB CONCETRATION 30.8 g/dL 33.0-37.0 L (test code = MCHC) RED CELL DISTRIBUTION WIDTH CV 22.7 % 11.5-14.5 H (test code = RDW) RED CELL DISTRIBUTION WIDTH SD 53.6 fL 37.0-54.0 N (test code = RDW-SD) PLATELET COUNT (test code = 381 x10 3/uL 150-400 N PLT) MEAN PLATELET VOLUME (test code 9.1 fL 7.0-9.0 H = MPV) NEUTROPHIL % (test code = NT%) 67.2 % 56.0-77.0 N IMMATURE GRANULOCYTE % (test 0.5 % 0.0-2.0 N code = IG%) LYMPHOCYTE % (test code = LY%) 22.2 % 14.0-32.0 N MONOCYTE % (test code = MO%) 7.7 % 4.8-9.0 N EOSINOPHIL % (test code = EO%) 1.7 % 0.3-3.7 N BASOPHIL % (test code = BA%) 0.7 % 0.0-2.0 N NUCLEATED RBC % (test code = 0.0 % 0-0 N NRBC%) NEUTROPHIL # (test code = NT#) 7.31 x10 3/uL 2.0-7.6 N IMMATURE GRANULOCYTE # (test 0.05 x10 3/uL 0.00-0.03 H code = IG#) LYMPHOCYTE # (test code = LY#) 2.41 x10 3/uL 1.0-3.8 N MONOCYTE # (test code = MO#) 0.84 x10 3/uL 0.1-0.8 H EOSINOPHIL # (test code = EO#) 0.18 x10 3/uL 0.0-0.2 N BASOPHIL # (test code = BA#) 0.08 x10 3/uL 0.0-0.2 N NUCLEATED RBC # (test code = 0.00 x10 3/uL 0.0-0.1 N NRBC#) MANUAL DIFF REQUIRED (test code NO = MDIFF) GLUCOSE [id number] 20:44:00 Test Item Value Reference Range Interpretation Comments GLUCOSE BEDSIDE (test 135 MG/DL 70-110 H Perfor med by certified code = GLUBED) 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 [id number] 15:55:00 Test Item Value Reference Range Interpretation Comments GLUCOSE BEDSIDE (test 83 MG/DL 70-110 N Perfor med by certified code = GLUBED) 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 [id number] 11:17:00 Test Item Value Reference Range Interpretation Comments GLUCOSE BEDSIDE (test 85 MG/DL 70-110 N Perfor med by certified code = GLUBED) 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[facility] COAGULATION TIME [id number] 08:28:00 Test Item Value Reference Range Interpretation Comments COAGULATION TIME 224 SECONDS Performed b y ACTIVATED (test code = certi fied diesel power shovel operator ACT) at [facility] GLUCOSE [id number] 08:19:00 Test Item Value Reference Range Interpretation Comments GLUCOSE BEDSIDE (test 143 MG/DL 70-110 H Perfor med by certified code = GLUBED) 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 [id number] 07:50:00 Test Item Value Reference Range Interpretation Comments GLUCOSE BEDSIDE (test 90 MG/DL 70-110 N Perfor med by certified code = GLUBED) 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 [id number] 02:22:00 Test Item Value Reference Range Interpretation Comments GLUCOSE BEDSIDE (test 143 MG/DL 70-110 H Perfor med by certified code = GLUBED) 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 [id number] 02:19:00 Test Item Value Reference Range Interpretation Comments GLUCOSE BEDSIDE (test 171 MG/DL 70-110 H Perfor med by certified code = GLUBED) 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 [id number] 02:18:00 Test Item Value Reference Range Interpretation Comments GLUCOSE BEDSIDE (test 161 MG/DL 70-110 H Perfor med by certified code = GLUBED) 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[facility] [id number] 02:17:00 Test Item Value Reference Range Interpretation Comments ACT-ISTAT (test code 225 SEC 74-137 H Perform ed by certified = ACTI) 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[facility] GLUCOSE [id number] 07:28:00 Test Item Value Reference Range Interpretation Comments GLUCOSE BEDSIDE (test 111 MG/DL 70-110 H Perfor med by certified code = GLUBED) 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[facility] CBC W/AUTO [id number] 14:31:00 Test Item Value Reference Range Interpretation Comments WHITE BLOOD CELL (test code = 8.3 x10 3/uL 4.5-11.0 N WBC) RED BLOOD CELL (test code = 4.68 x10 6/uL 3.54-5.02 N RBC) HEMOGLOBIN (test code = HGB) 9.6 g/dL 11.0-15.0 L HEMATOCRIT (test code = HCT) 32.7 % 33.0-45.0 L MEAN CELL VOLUME (test code = 69.9 fL 81.0-99.0 L MCV) MEAN CELL HGB (test code = MCH) 20.5 pg 27.0-33.0 L MEAN CELL HGB CONCETRATION 29.4 g/dL 33.0-37.0 L (test code = MCHC) RED CELL DISTRIBUTION WIDTH CV 23.4 % 11.5-14.5 H (test code = RDW) RED CELL DISTRIBUTION WIDTH SD 56.0 fL 37.0-54.0 H (test code = RDW-SD) PLATELET COUNT (test code = 425 x10 3/uL 150-400 H PLT) MEAN PLATELET VOLUME (test code 9.1 fL 7.0-9.0 H = MPV) NEUTROPHIL % (test code = NT%) 58.5 % 56.0-77.0 N IMMATURE GRANULOCYTE % (test 0.4 % 0.0-2.0 N code = IG%) LYMPHOCYTE % (test code = LY%) 29.8 % 14.0-32.0 N MONOCYTE % (test code = MO%) 7.3 % 4.8-9.0 N EOSINOPHIL % (test code = EO%) 2.4 % 0.3-3.7 N BASOPHIL % (test code = BA%) 1.6 % 0.0-2.0 N NUCLEATED RBC % (test code = 0.0 % 0-0 N NRBC%) NEUTROPHIL # (test code = NT#) 4.84 x10 3/uL 2.0-7.6 N IMMATURE GRANULOCYTE # (test 0.03 x10 3/uL 0.00-0.03 N code = IG#) LYMPHOCYTE # (test code = LY#) 2.46 x10 3/uL 1.0-3.8 N MONOCYTE # (test code = MO#) 0.60 x10 3/uL 0.1-0.8 N EOSINOPHIL # (test code = EO#) 0.20 x10 3/uL 0.0-0.2 N BASOPHIL # (test code = BA#) 0.13 x10 3/uL 0.0-0.2 N NUCLEATED RBC # (test code = 0.00 x10 3/uL 0.0-0.1 N NRBC#) MANUAL DIFF REQUIRED (test code NO = MDIFF) RBC [id number] 14:31:00 Test Item Value Reference Range Interpretation Comments ANISOCYTOSIS (test code = ANISO) 2+ MICROCYTOSIS (test code = MICR) 2+ MACROCYTOSIS (test code = MACR) 1+ TARGET CELLS (test code = TGT) 1+ ELLIPTOCYTES (test code = ELL) FEW SCHISTOCYTES (test code = SEERNITY) FEW BASIC METABOLIC [id number] 12:02:00 Test Item Value Reference Range Interpretation Comments SODIUM (test code = 142 mEq/L 134-147 N NA) POTASSIUM (test code 4.6 mEq/L 3.4-5.0 N = K) CHLORIDE (test code 106 mEq/L 100-108 N = CL) CARBON DIOXIDE (test 31 mEq/l 21-33 N code = CO2) ANION GAP (test code 10 0-20 N = GAP) GLUCOSE (test code = 73 mg/dL 70-110 N GLU) BLOOD UREA NITROGEN 10 mg/dL 7-18 N (test code = BUN) GLOMERULAR 59.1 70-80 L The Glomerular FILTRATION RATE Filtration R ate is a (test code = GFR) calculated parameterbased on serum Creatinine, pat ient age and sex. GFR va luesless than 60 mL/min/ 1.73 square meters a re indicative ofCh ronic Kidney Disease. Values less than 15 mL/min/1.73squa re meters indicate Kidney failure. The calculation forGFR is based on the CKD-EPI (2020) calculat ion. This formulais race indifferent and is the recommended for lucila for GFRby the Natio nal Kidney Foundati on for Adults.The GFR will not calculate if th e sex is unknown or if thepatient's ag e is <18 years. CREATININE (test 1.0 mg/dL 0.6-1.3 N code = CREAT) CALCIUM (test code = 8.5 mg/dL 8.0-10.5 N CA) PROTHROMBIN [id number] 11:59:00 Test Item Value Reference Range Interpretation Comments PROTHROMBIN TIME 10.9 SECONDS 9.3-12.9 N PATIENT (test code = PTP) INTERNATIONAL NORMAL 1.0 0.8-1.2 N TARGET INR BY RATIO (test code = INDICATIO N Indication INR) INR1. Prophylax is of venous thrombos is 2.0 - 3.0 (orthoped ic surgery), Proph ylaxis of venous throm bosis (other than hig h-risk surgery), Treat ment of Deep Vein Thrombosis/Pulm onary Embolism, Preve ntion of systemic emb olism - Tissue heart va lves, Acute Myocardia l Infarction (to prevent systemic emboli sm), Valvular heart disease, Atrial Fibrillation, Bileaflet mecha nical valve in aortic position.2. Mec hanical prosthetic valv es (high risk), 2. 5 - 3.5 Presence of Lup us Anticoagulant o r Antiphospholipi d Antibodies, Pre vention of systemic emb olism - Acute Myocardia l Infarction (to prevent recurrent infar ct). - XR CHEST 2 [id number] 00:00:00 [facility] AZLEN[facility]: MANJIT BHATT : 1950 Sex: F FAX: Manny Gonzalez MD [phone] [place]: St: PRE Name: MANJIT BHATT [facility] : 1950 Age/S: 72/F [address] [place] [address] Unit #: [id number] Loc: [place] [address] Phys: Manny Grey MD Acct: [id number] Dis Date: Status: PRE [facility] PHONE #: [phone] Exam Date: 04/11/2022 112 FAX #: [phone] Reason: PRE OP EXAMS: CPT CODE: [id number] XR CHEST 2 V [id number] PROCEDURE INFORMATION: Exam: XR ChestExam date and time: 04/11/2022 11:16 AM Age: 72 years old Clinical indication: Pre-operative exam; Cardiovascular screening and respiratory screening exam; Additional info: Pre op TECHNIQUE: Imaging protocol: Radiologic exam of the chest. Views: 2 views. PA and Lateral COMPARISON: DX XR CHEST 2 V 11/28/2021 2:34 PM FINDINGS: Lungs: No consolidation or interstitial edema. Coarse interstitial pattern ischronic in nature. Pleural spaces: No pleural effusion. No pneumothorax. Heart/Mediastinum: The heart size is normal. Vasculature: Tortuous thoracic aorta contains calcifications. Bones/joints: No acute abnormality. IMPRESSION: No acute cardiopulmonary process identified. at 1426 Reported and signed by: Mayo Garcia M.D.CC: Manny Grey MD Technologist: FARHAT Eckert) Trnscrd Date/Time/By: 04/11/2022 (9876) : B y: [email or web address] Orig Print D/T: S: 04/11/2022 (4458) PAGE 1 Signed ReportCOMP. METABOLIC PANEL ([id number])2021-12-18 03:31:59 Test Item Value Reference Range Interpretation Comments NA (test code = 134 mmol/L 135-145 L 0459359980) K (test code = 4.5 mmol/L 3.5-5 8800677091) CL (test code = 98 mmol/L 98-108 8575515397) CO2 TOTAL (test code = 25 mmol/L 23-31 0364864870) AGAP (test code = 2-16 8108273771) BUN (test code = 20 mg/dL 7-23 6604748429) GLUCOSE (test code = 133 mg/dL 70-110 H 6952104102) CREATININE (test code = 1.04 mg/dL 0.5-1.04 8923907370) TOTAL BILI (test code = 0.4 mg/dL 0.1-1.7 5483943260) CALCIUM (test code = 8.6 mg/dL 8.6-10.6 3691604375) T PROTEIN (test code = 6.7 g/dL 6.3-8.2 4594605125) ALBUMIN (test code = 4.0 g/dL 3.5-5 0837505747) ALK PHOS (test code = 153 U/L 34-122 H 8751173836) ALTv (test code = 78 U/L 5-35 H 1742-6) AST(SGOT) (test code = 27 U/L 13-40 4327019024) eGFR (test code = mL/min/1.73m2 1757441587) KARIS (test code = KARIS) Association of Glomerular Filtration Rate (GFR) and Staging of Kidney Disease* + --+ --+ ------+| GFR (mL/min/1.73 m2) ?| With Kidney Damage ?| ?Without Kidney Damage+ --------+ --------+ +| ?>90 ?| ?Stage one ?| ? Normal ?+ ---+ ---+ -------+| ?60-89 ?| ?Stage two ?| ? Decreased GFR ? + --+ --+ ------+| ?30-59 ?| ?Stage three ?| ? Stage three ? + --+ --+ ------+| ?15-29 ?| ?Stage four ? | ? Stage four ?+ ---+ ---+ -------+| ?<15 (or dialysis) ? ?| ?Stage five ? | ? Stage five ?+ ---+ ---+ -------+ *Each stage assumes the associated GFR [...] or abnormalities in imaging tests). Lab Interpretation Abnormal (test code = 98475-2) [facility] WITH [id number] 03:16:01 Test Item Value Reference Range Interpretation Comments WBC (test code = See_Comment [Automated 4585-2) message] The sy stem which generated this result transmitted reference range : 4.30 - 11.10 10*3/?L. The reference range was not used to interpret this result as normal/abnormal . RBC (test code = See_Comment L [Automated 099-8) message] The sy stem which generated this [...] RDW-SD (test code = 46.9 fL 39-49.9 41746-4) RDW-CV (test code = 18.9 % 12-15.5 H 788-0) PLT (test code = See_Comment H [Automated 777-3) message] The sy stem which generated this result transmitted reference range : 166 - 358 10*3/ ?L. The reference r claudy was not used to interpret this result as normal/abnormal . MPV (test code = 9.2 fL 9.5-12.9 L 97788-9) NRBC/100 WBC (test See_Comment [Automat ed code = 7839912471) message] The system which generated this result transmitted reference range : 0.0 - 10.0 /100 WBCs. The refer ence range was not u sed to interpret th is result as normal/abnormal . NRBC x10^3 (test code See_Comment [Auto mated = 2808930118) message] The s ystem which generated this result transmitted reference range : 10*3/?L. The reference range was not used to interpret this result as normal/abnormal . GRAN MAT (NEUT) % 67.5 % (test code = 770-8) IMM GRAN % (test code 0.40 % = 9452401720) LYMPH % (test code = 19.1 % 736-9) MONO % (test code = 11.0 % 5905-5) EOS % (test code = 1.3 % 713-8) BASO % (test code = 0.7 % 706-2) GRAN MAT x10^3(ANC) 6.97 10*3/uL 1.88-7.09 (test code = 8694389936) IMM GRAN x10^3 (test 0.04 10*3/uL 0-0.06 code = 1932802910) LYMPH x10^3 (test code 1.97 10*3/uL 1.32-3.29 = 731-0) MONO x10^3 (test code 1.13 10*3/uL 0.33-0.92 H = 742-7) EOS x10^3 (test code = 0.13 10*3/uL 0.03-0.39 711-2) BASO x10^3 (test code 0.07 10*3/uL 0.01-0.07 = 704-7) Lab Interpretation Abnormal (test code = 13902-9) [id number] Test Item Value Reference Range Interpretation Comments ACT-ISTAT (test code 196 SEC 74-137 H Perform ed by certified = ACTI) 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[facility] CBC W/AUTO [id number] 17:02:00 Test Item Value Reference Range Interpretation [...] REQUIRED (test code NO = MDIFF) RBC [id number] 17:02:00 Test Item Value Reference Range Interpretation Comments ANISOCYTOSIS (test code = ANISO) 1+ POLYCHROMASIA (test code = POLC) SLIGHT POIKILOCYTOSIS (test code = POIK) 2+ MICROCYTOSIS (test code = MICR) 1+ TARGET CELLS (test code = TGT) RARE ELLIPTOCYTES (test code = ELL) 2+ ACANTHOCYTES (test code = ACAN) FEW NONE SCHISTOCYTES (test code = SERENITY) FEW BASIC METABOLIC [id number] 16:01:00 Test Item Value Reference Range Interpretation [...] = 8.5 mg/dL 8.0-10.5 N CA) PROTHROMBIN [id number] 15:56:00 Test Item Value Reference Range Interpretation Comments PROTHROMBIN TIME 11.0 SECONDS 9.3-12.9 N PATIENT (test code = PTP) INTERNATIONAL NORMAL 1.0 0.8-1.2 N TARGET INR BY RATIO (test code = INDICATIO N Indication INR) INR1. Prophylax is of venous thrombos is 2.0 - 3.0 (orthoped ic surgery), Proph ylaxis of venous throm bosis (other than hig h-risk surgery), Treat ment of Deep Vein Thrombosis/Pulm onary Embolism, Preve ntion of systemic emb olism - Tissue heart va lves, Acute Myocardia l Infarction (to prevent systemic emboli sm), Valvular heart disease, Atrial Fibrillation, Bileaflet mecha nical valve in aortic position.2. Mec hanical prosthetic valv es (high risk), 2. 5 - 3.5 Presence of Lup us Anticoagulant o r Antiphospholipi d Antibodies, Pre vention of systemic emb olism - Acute Myocardia l Infarction (to prevent recurrent infar ct). - XR CHEST 2 [id number] 00:00:00 [facility] : 1950 Sex: F FAX: Manny Gonzalez MD [phone] [place]: [address] St: PRE Name: MANJIT BHATT [facility] : 1950 Age/S: 71/F [address] [place] [address] Blvd Unit #: [id number] Loc: [place] [address] Phys: Manny Grey MD Acct: [id number] Dis Date: Status: PRE SDC PHONE #: [phone] Exam Date: 11/28/2021 1513 FAX #: [phone] Reason: PREOP EXAMS: CPT CODE: [id number] XR CHEST 2 V 93862 PROCEDURE INFORMATION: Exam: XR Chest Exam date [...] pleural effusion. Heart/Mediastinum: The heart and vascular markings are within limits of normal. There is atherosclerotic calcification of the aorta.Bones/joints: No gross acute findings. IMPRESSION: No acute cardiopulmonary findings at 1615 Reported and signed by: Gildardo Mariee D.O. 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 CBC W/AUTO [id number] 09:10:00 Test Item Value Reference Range Interpretation [...] x10 3/uL 0.0-0.1 N NRBC#) BASIC METABOLIC [id number] 08:30:00 Test Item Value Reference Range Interpretation [...] = 9.0 mg/dL 8.0-10.5 N CA) PROTHROMBIN [id number] 08:23:00 Test Item Value Reference Range Interpretation Comments PROTHROMBIN TIME 10.8 SECONDS 9.3-12.9 N PATIENT (test code = PTP) INTERNATIONAL NORMAL 1.0 0.8-1.2 N TARGE T INR BY RATIO (test code = INDICATIO N Indication INR) INR1. Prophylax is of venous thrombos is 2.0 - 3.0 (orthoped ic surgery), Proph ylaxis of venous throm bosis (other than hig h-risk surgery), Treat ment of Deep Vein Thrombosis/Pulm onary Embolism, Preve ntion of systemic emb olism - Tissue heart va lves, Acute Myocardia l Infarction (to prevent systemic embol ism), Valvular heart disease, Atrial Fibrillation, Bileaflet mecha nical valve in aortic position.2. Mec hanical prosthetic valv es (high risk), 2. 5 - 3.5 Presence of Lup us Anticoagulant o r Antiphospholipi d Antibodies, Pre vention of systemic emb olism - Acute Myocardia l Infarction (to prevent recurrent infar ct). THROMBOPLASTIN TIME [id number] 08:23:00 Test Item Value Reference Range Interpretation Comments THROMBOPLASTIN TIME 30.6 Seconds 25.0-39.5 N Therape utic Range: PARTIAL (test code = 50.4 - 88.3 Seconds PTT) Effective 09/17/2018 - XR CHEST 2 [id number] 00:00:00 [facility] : 1950 Sex: F FAX: Juan Carlos JuRayne Prater [phone] [place]: St: PRE FAX: Gillian Donato Name: MANJIT BHATT [facility] : 1950 Age/S: 71/F [address] [place] [address] Unit #: [id number] Loc: [place] [address] Phys: Gillian Donato NP Acct: [id number] Dis Date: Status: PRE [facility] PHONE #: [phone] Exam Date: 04/25/2021947 FAX #: [phone] Reason: PREOP EXAMS: CPT CODE: [id number] XR CHEST 2 V [id number] PROCEDURE INFORMATION: Exam: XR Chest Exam date [...] and signed by: Taurus Carpio M.D. CC: Rayne Ghosh MD; Gillian Donato NP Technologist: RT Samanta(Jadyn) Trnscrd Date/Time/By: 04/25/2021 (110) : By: [email or web address] Orig Print D/T: S: 04/25/2021 (1222) PAGE 1 Signed Report
[2022-07-08 00:05] LABS: Absolute Lymphocytes (CBC) 1.7 K/uL (0.7-4.9); Hematocrit 32.4 % (36.0-45.0); Lymphocytes % 18.4 % (15.3-44.8); MCV 84.4 fL (80-100); RBC Red Blood Cell Count 3.84 M/uL (3.86-4.86)
[2022-07-08 00:27] LABS: Albumin 2.5 g/dL (3.4-5.0); Bilirubin Direct 0.1 mg/dL (0-0.2); Bilirubin Total 0.4 mg/dL (0.2-1.0); Potassium 4.1 mmol/L (3.5-5.1); Protein, Total 6.6 g/dL (6.4-8.2); Troponin High Sensitivity 50.4 pg/mL (<58.9)
--- NOTE | 2022-07-08 01:11 | EDPHYS ---
Physician Documentation [facility] Name: Mukul Larson Age: 72 yrs Sex: Female : 1950 Arrival Date: 07/07/2022 Time: 23:32 Bed 7 Private MD: ED Physician Cristian Weber HPI: 07/07 23:44 Patient is a 72-year-old that was recently discharged from the hospital approximately 6 jr11 days ago for work-up on a stroke. She does have a history of COPD, has not been using her inhaler or nebulizer. Patient comes in today because she noticed swelling on her left leg left arm. Denies being on Lasix. Patient otherwise is on Plavix and also Xarelto. Denies any pain to these extremities they are just swollen. Patient otherwise at baseline.. Historical: - Allergies: 23:52 PENICILLINS; pf1 - PMHx: 23:52 Anxiety; CAD; CHF; CVA; COPD; Diabetes - NIDDM; High Cholesterol; Hypertension; pf1 - Immunization history:: Adult Immunizations not up to date, Client reports having NOT received the Covid vaccine. Last tetanus immunization: unknown, Pneumococcal vaccine is not up to date, Flu vaccine is not up to date. ROS: 23:44 All other systems are negative. jr11 Exam: 23:44 Constitutional: appears chronically ill Head/Face: Normocephalic, atraumatic. Eyes: jr11 Extra-ocular motions intact. Lids and lashes normal. Conjunctiva and sclera are non-icteric and not injected. Cornea within normal limits. Periorbital areas with no swelling, redness, or edema. ENT: Nares patent. No nasal discharge, no septal abnormalities noted. Oropharynx with no redness, swelling, or masses, exudates, or evidence of obstruction, uvula midline. Mucous membranes moist. Neck: Trachea midline, no thyromegaly or masses palpated, and no cervical lymphadenopathy. Supple, full range of motion without nuchal rigidity, or vertebral point tenderness. No Meningismus. Cardiovascular: Regular rate and rhythm with a normal S1 and S2. No gallops, murmurs, or rubs. Normal PMI, no JVD. No pulse deficits. Respiratory: diminished diffusely, slight exp wheezing Abdomen/GI: Soft, non-tender, with normal bowel sounds. No distension or tympany. No guarding or rebound. No evidence of tenderness throughout. Back: No spinal tenderness. No costovertebral tenderness. Full range of motion. MS/ Extremity: Pulses equal, no cyanosis. Neurovascular intact. Full, normal range of motion. 2+ edema to LLE, 1+ to L hand. N/V intact distally Vital Signs: 23:25 BP 161 / 73; Pulse 91; Resp 18; Temp 98.7; Pulse Ox 99% on R/A; Weight 47.63 kg; Height pf1 4 ft. 11 in. (149.86 cm); Pain 0/10; 07/08 01:25 BP 164 / 76; Pulse 90; Resp 16; Pulse Ox 98% on R/A; jb4 07/07 23:25 Body Mass Index 21.21 (47.63 kg, 149.86 cm) pf1 MDM: 07/07 23:41 Patient medically screened. jr11 23:44 Differential Diagnosis Patient is a 72-year-old with multiple medical problems here jr11 with left hand swelling which is improving per the daughter and left leg swelling. Patient can have the swelling secondary to venous stasis versus renal liver or cardiac failure. We will get lab work. We will also get an ultrasound rule out DVT however she is on 2 blood thinners, doubt she is having a blood clot.. Data reviewed: vital signs, nurses notes. External Records Reviewed: Inpatient record: recent hospitalization here for possible stroke. Care significantly affected by the following chronic conditions: Chronic Obstructive Pulmonary Disease. 07/08 00:11 Differential Diagnosis EKG interpretation done by me shows normal sinus rhythm, right jr11 axis, normal intervals, T wave inversions inferior leads II, III and aVF, no STEMI. EKG nondiagnostic.. Independent interpretation of the following test(s) in the Emergency Department EKG: See my EKG interpretation above. 01:08 Independent interpretation of the following test(s) in the Emergency Department. ED jr11 course: US leg interpretation of images no blood clot . ED course: Per daughter, she sees Dr Grimes, will call Sunday, she just had an ECHO. ED course: Denies CP. 07/07 23:43 Order name: Basic Metabolic Panel; Complete Time: 00:45 jr11 07/07 23:43 Order name: CBC with Diff; Complete Time: 00:45 jr11 07/07 23:43 Order name: US Extremity Venous Unilateral Ltd jr11 07/07 23:43 Order name: LFT's; Complete Time: 00:45 07/07 23:43 Order name: NT PRO-BNP; Complete Time: 00:45 07/07 23:43 Order name: Troponin HS; Complete Time: 00:45 07/07 23:43 Order name: EKG; Complete Time: 23:44 07/07 23:43 Order name: Cardiac monitoring; Complete Time: 00:10 07/07 23:43 Order name: EKG - Nurse/Tech; Complete Time: 00:10 07/07 23:43 Order name: IV Saline Lock; Complete Time: 23:59 07/08 00:43 Order name: UPPER EXTREMITY VENOUS UNILATE EDMS 07/07 23:43 Order name: Labs collected and sent; Complete Time: 23:59 07/07 23:43 Order name: O2 Per Protocol; Complete Time: 23:45 07/07 23:43 Order name: O2 Sat Monitoring; Complete Time: 23:45 [facility] Administered Medications: 01:25 Drug: Lasix (furosemide) 60 mg Route: IVP; Site: right wrist; jb4 Disposition Summary: 07/08/22 01:10 Discharge Ordered Location: Home jr11 Condition: Stable jr11 Diagnosis - Localized edema jr11 - Generalized edema jr11 - Pain in left leg jr11 Discharge Instructions: - Discharge Summary Sheet jr11 - Edema jr11 - Heart Failure Exacerbation jr11 Forms: - Medication Reconciliation Form jr11 - Thank You Letter jr11 - Antibiotic Education jr11 - Prescription Opioid Use jr11 Prescriptions: - Lasix 20 mg Oral Tablet - take 1 tablet by ORAL route once daily; 5 tablet; Refills: 0, Product Selection jr11 Permitted Signatures: Dispatcher [employer] EDLex Berkowitz RN RN jb4 Cristian Weber MD MD jr11 Marielle duran RN RN pf1 Corrections: (The following items were deleted from the chart) 00:07 07/07 23:44 Extremity Venous Uni Ltd+US.RAD.BRZ ordered. EDMS EDMS 07/08 00:41 00:39 Extremity Venous Uni Ltd+US.RAD.BRZ ordered. EDMS EDMS
--- NOTE | 2022-07-08 01:11 | ER ---
Nurse's Notes [facility] Name: Mukul Larson Age: 72 yrs Sex: Female : 1950 Arrival Date: 07/07/2022 Time: 23:32 Bed 7 Private MD: Diagnosis: Localized edema;Generalized edema;Pain in left leg Presentation: 07/07 23:25 Chief complaint: Patient states: left lower leg and foot swelling,onset 3-4 days with pf1 left hand swelling,onset 2 days. Patient stated had surgery to left lower extremity on 06/06/22 for blockage with stents placed and Tack endovascular system implant. 23:25 Method Of Arrival: Wheelchair pf1 23:25 Coronavirus screen: Vaccine status: Patient reports being unvaccinated. At this time, pf1 the client does not indicate any symptoms associated with coronavirus-19. Ebola Screen: Patient negative for fever greater than or equal to 101.5 degrees Fahrenheit, and additional compatible Ebola Virus Disease symptoms. Initial Sepsis Screen: Does the patient meet any 2 criteria? No. Patient's initial sepsis screen is negative. Does the patient have a suspected source of infection? No. Patient's initial sepsis screen is negative. Risk Assessment: Do you want to hurt yourself or someone else? Patient reports no desire to harm self or others. Onset of symptoms was July 04, 2022. 23:25 Acuity: APOLONIA 3 pf1 Historical: - Allergies: 23:52 PENICILLINS; pf1 - PMHx: 23:52 Anxiety; CAD; CHF; CVA; COPD; Diabetes - NIDDM; High Cholesterol; Hypertension; pf1 - Immunization history:: Adult Immunizations not up to date, Client reports having NOT received the Covid vaccine. Last tetanus immunization: unknown, Pneumococcal vaccine is not up to date, Flu vaccine is not up to date. Screenin:54 [facility] ED Fall Risk Assessment (Adult) History of falling in the last 3 months, pf1 including since admission No falls in past 3 months (0 pts) Confusion or Disorientation No (0 pts) Intoxicated or Sedated No (0 pts) Impaired Gait Yes (1 pt) Mobility Assist Device Used Yes (1 pt) Altered Elimination No (0 pt) Score/Fall Risk Level 0 - 2 = Low Risk Oriented to surroundings, Maintained a safe environment, Educated pt \T\ family on fall prevention, incl call for assistance when getting out of bed, Assessed \T\ reinforced patient's understanding of fall precautions, Provided non-skid footwear, Hourly rounding (assess needs \T\ fall precautionary measures) done, Used ambulatory aids as needed (educated on \T\ assisted with), Used gait belt as appropriate. Abuse screen: Denies threats or abuse. Nutritional screening: No deficits noted. Tuberculosis screening: No symptoms or risk factors identified. Assessment: 07/08 00:08 General: Appears in no apparent distress. comfortable, Behavior is calm, cooperative, jb4 appropriate for age. Pain: Complains of pain in left arm and left leg. Neuro: Level of Consciousness is awake, alert, obeys commands, Oriented to person, place, time, situation. Cardiovascular: Patient's skin is warm and dry. Respiratory: Airway is patent Respiratory effort is even, unlabored, Respiratory pattern is regular, symmetrical. GI: No signs and/or symptoms were reported involving the gastrointestinal system. : No signs and/or symptoms were reported regarding the genitourinary system. EENT: No signs and/or symptoms were reported regarding the EENT system. Derm: Skin is intact, Skin is pink, warm \T\ dry. Musculoskeletal: Circulation, motion, and sensation intact. Range of motion: Swelling present in left arm and left leg. 01:25 Reassessment: Patient appears in no apparent distress at this time. Patient and/or jb4 family updated on plan of care and expected duration. Pain level reassessed. Patient is alert, oriented x 3, equal unlabored respirations, skin warm/dry/pink. Vital Signs: 07/07 23:25 BP 161 / 73; Pulse 91; Resp 18; Temp 98.7; Pulse Ox 99% on R/A; Weight 47.63 kg; Height pf1 4 ft. 11 in. (149.86 cm); Pain 0/10; 07/08 01:25 BP 164 / 76; Pulse 90; Resp 16; Pulse Ox 98% on R/A; jb4 07/07 23:25 Body Mass Index 21.21 (47.63 kg, 149.86 cm) pf1 ED Course: 07/07 23:32 Patient arrived in ED. jj6 23:32 Cristian Weber MD is Attending Physician. jr11 23:52 Triage completed. pf1 23:54 No provider procedures requiring assistance completed. pf1 23:54 Patient has correct armband on for positive identification. Bed in low position. Call pf1 light in reach. Side rails up X2. 23:59 Initial lab(s) drawn, by me, sent to lab. Inserted saline lock: 22 gauge in right jb4 forearm, using aseptic technique. Blood collected. 07/08 00:08 Lex Alvarez, RN is Primary Nurse. jb4 00:45 US Extremity Venous Unilateral Ltd In Process Unspecified. EDMS 01:11 UPPER EXTREMITY VENOUS UNILATE In Process Unspecified. EDMS 01:30 IV discontinued, intact, bleeding controlled, No redness/swelling at site. Pressure jb4 dressing applied. Administered Medications: 01:25 Drug: Lasix (furosemide) 60 mg Route: IVP; Site: right wrist; jb4 Medication: 01:25 VIS not applicable for this client. jb4 Outcome: 01:10 Discharge ordered by . jr11 01:30 Discharged to home via wheelchair, with family. jb4 01:30 Condition: stable 01:30 Discharge instructions given to patient, family, Instructed on discharge instructions, follow up and referral plans. medication usage, Demonstrated understanding of instructions, follow-up care, medications, Prescriptions given X 1. 02:07 Patient left the ED. jb4 Signatures: Dispatcher [employer] EDLex Berkowitz, CONCEPCIÓN BEEBE jb4 Elza [id number] Cristian Weber MD MD jr11 Marielle duran RN RN pf1
[2022-07-08] MEDS ORDERED: FUROSEMIDE 20 MG/ 2ML VIAL ONE (01:19)
[2022-07-08] MEDS ORDERED: FUROSEMIDE 40 MG/4 ML VIAL ONE (01:19)
[2022-07-08 02:12] VITALS: BP 164/76; O2SAT 98
--- NOTE | 2022-07-08 11:07 | RAD REPORT ---
EXAM DESCRIPTION: USExtremity Venous Uni Ltd07/08/2022 7:15 am CLINICAL HISTORY: left leg swelling COMPARISON: None FINDINGS: Left common femoral, superficial femoral, greater saphenous, popliteal and posterior tibi al veins are compressible and demonstrate augmentation. Doppler demonstrates good flow. Grayscale, color and spectral analysis performed on all vessels IMPRESSION: No evidence of deep venous thrombosis involving the left lower extremity.
--- NOTE | 2022-07-08 21:55 | RAD REPORT ---
EXAM DESCRIPTION: US - UPPER EXTREMITY VENOUS UNILATE - 07/08/2022 7:07 am CLINICAL HISTORY: 72 years, Female, SWELLING COMPARISON: None FINDINGS: Multiple grayscale images as well as duplex Doppler ultrasound (color and spectral analysi s) of the left upper extremity were performed. Left internal jugular vein, left subclavian vein, left axillary vein, left brachial vein, left radial and left ulnar vein were imaged. Spectral waveform demonstrate normal compressibility, phasicity a nd augmentation. No intraluminal defects were seen. The sixth left cephalic and left basilic vein demonstrate to be patent with no evidence for superfici al thrombophlebitis. IMPRESSION: No evidence of left upper extremity DVT. Electronically signed by: Bhargav Johnson MD 07/08/2022 1:18 AM LORRY WEIGHER Due to temporary technical issues with the PACS/Fluency reporting system, reports are being signed by the in house radiologists without review as a courtesy to insure prompt reporting. The interpreting radiologist is fully responsible for the content of the report.
== END 2022-07-08 02:07 | disposition home or self-care (01) ==
LOC: ER 23:29
DX: R60.0 Localized edema (principal); M79.605 Pain in left leg; R60.1 Generalized edema; J44.9 Chronic obstructive pulmonary disease, unspecified; I10 Essential (primary) hypertension; Z86.73 Personal history of transient ischemic attack (TIA), and cerebral infarction without residual deficits; Z88.0 Allergy status to penicillin
CPT/HCPCS: 93005; 85025; 80048; 36415; 80076; 84484; 83880; 93971 ×2; 96374; 99284; J1940 ×2

== ENCOUNTER 2022-10-07 04:21 | Inpatient (IN) | payer OTHER ==
[2022-10-07] MEDS ORDERED: ONDANSETRON 4 MG/2 ML VIAL IV PRN (05:30)
[2022-10-07] MEDS ORDERED: ALBUTEROL 2.5 MG/3 ML NEB SOL NEB PRN (05:30)
[2022-10-07] MEDS ORDERED: IPRATROPIUM BROM 0.5MG/2.5ML NEB PRN (05:30)
--- OUTSIDE RECORDS SUMMARY | 2022-10-07 05:30 | XMS REPORT | Continuity of Care Document ---
:1950 Author Organization [facility] t Address [address] [place] [id number] Care Team Providers Name Role Phone ARIADNE SHEIKH Primary Care Physician Unavailable Ariadne Sheikh Attending Clinician Unavailable Manny Grey Attending Clinician Unavailable SADIQ HICKMAN Attending Clinician Unavailable JOSE PAIGE Attending Clinician Unavailable SIENNA WILSON Attending Clinician Unavailable Jonathon Valenzuela Attending Clinician Unavailable Rayne Ghosh Attending Clinician Unavailable UNKNOWN, ATTENDING Attending Clinician Unavailable Doctor Unassigned, [place] Attending Clinician Unavailable Vonda Bell Attending Clinician [...] Number Effective Date Expiration Date Adriana melendez [facility] [id number] 2021 00:00:00 WELLMED/C DUAL [id number] 2021 COMP HMO D SNP 00:00:00 AMER[employer] OF [id number] 2014 [place] 00:00:00 [facility] MEDICARE C1 [id number] Common ADVANTAGE WELLMED [facility] MEDICARE C1 [id number] Common ADVANTAGE WELLMED Spirit [facility] AARP MEDICARE C1 [id number] Common ADVANTAGE WELLMED Spirit [facility] AMERIVANTAGE [id number] 2016 2020 00:00:00 00:00:00 Problems Condition Condition Condition Status Onset Resolution Last Treating Co mments Source Name Details Category Date Date Treatment Clinician Date Spinal Spinal Disease Active Univers stenosis, stenosis, 5-10 ity of lumbar lumbar 00:00: [place] region, region, 00 Medical without without Branch neurogenic neurogenic claudicati claudicati on on Peripheral Peripheral Problem [facility] vascular vascular Spirit disease disease - [facility] Hyperlipid Hyperlipid Problem C [facility] emia emia Spirit - [facility] 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 Penicill DA Active U HIVES 2021-06 [facility] ins 1-08 Clear 00:00: [place] 00 [facility] PENICILL Drug Active ITCHING Univers INS Class 7-16 ity of 00:00: [place] 00 [facility] Penicill Propensi Active Itching Unive rs ins ty to 7-16 ity of adverse 00:00: [place] reaction 00 [facility] Penicill Propensi Active Itching Unive rs ins ty to 7-16 ity of adverse 00:00: [place] reaction 00 [facility] bee DA Active SV HIVES [facility] venom 6-27 Clear protein 00:00: [place] (honey 00 [facility] No Known DA Active U 2020-06 [facility] Allergie 1-22 Clear s 00:00: [place] 00 [facility] NO KNOWN Drug Active Univers ALLERGIE Class ity of S [facility] Social History Social Habit Start Date Stop Date Quantity Comments Source History of Current Smoker Common Spi rit - Tobacco Use [facility] Sex Assigned At Common Sp lex - [facility] Exposure to 2021-12-08 2021-12-18 Not sure [facility] SARS-CoV-2 00:00:00 03:38:00 [facility] (event) Branch Alcohol intake 2021-12-18 2021-12-18 0 /d University of 00:00:00 00:00:00 [facility] Smoking Status Start Date Stop Date Source Current Smoker 2022-04-13 00:00:00 Common Spiri t - [facility] Occasional tobacco smoker 2016-08-15 00:00:00 Un iversity [facility] Medications Ordered Filled Start Stop Current Ordering Indication Dosage Frequency Signature Comments Components Source Medication Medication Date Date Medication? Clinician (SIG) Name Name Pregabalin Pregabalin No 1{capsu TID Pregabalin 50 MG 50 MG 8-11 le} 50 MG 00:00: 00 diazePAM 2021- No 5mg 5 mg, Univers (VALIUM) 12-18 Oral, ity of tablet 5 mg 09:00: 09:01 [place] dose, On Medical [place] Branch 12/18/21 at 0415, ARIES simvastatin Yes 40mg Take 40 mg Univers 40 mg 17 by mouth ity of tablet 04:10: at [place] [address] bedtime. Medical Branch simvastatin Yes 40mg Take 40 mg Univers 40 mg 12-18 by mouth ity of tablet 04:10: at [place] 53 bedtime. Medical Branch FENTanyl PF 2021- [...] 50mg Take 1 Univ ers mg tablet 12-17 tablet by ity o f 00:00: mouth [...] 50mg Take 1 Uni vers mg tablet 4-13 -17 tablet by ity of 00:00: 00:00 mouth [...] ity of tablet 00:00: MOUTH [place] 00 [id number] Medical YS,1 TAB Branch [id number] ,1/2 TAB [id number] ALPRAZolam Yes TAKE 1 Unive rs 0.5 [...] ity of tablet 00:00: MOUTH [place] 00 [id number] Medical YS,1 TAB Branch [id number] ,1/2 TAB [id number] simvastatin Yes TAKE 1 Univ ers 40 mg 2-22 TABLET BY ity of tablet 00:00: MOUTH AT [place] 00 BEDTIME Medical Branch rOPINIRole Yes TAKE 1 Unive rs 4 mg tablet 2-22 TABLET BY ity of 00:00: MOUTH AT [place] 00 BEDTIME Medical Branch traMADOL 50 Yes TAKE 1 Univ ers mg tablet 2-22 TABLET BY ity o f 00:00: MOUTH [place] 00 TWICE A Medical DAY Branch NEEDED FOR PAIN ALPRAZolam Yes TAKE 1 Unive rs 0.5 mg 2-22 TABLET BY ity of tablet 00:00: MOUTH [place] 00 TWICE A Medical DAY Branch NEEDED FOR ANXIETY hydroCHLORO Yes TAKE ONE Un william thiazide 2-22 CAPSULE BY ity o f 12.5 mg 00:00: MOUTH [place] capsule 00 EVERY Medical MORNING Branch lisinopril Yes 10mg Take 10 mg U nivers 10 mg 2-22 by mouth ity of tablet 00:00: daily. [place] 00 Medical Branch metoprolol Yes TAKE 1 Unive rs tartrate 2-22 TABLET BY ity of 100 mg 00:00: MOUTH [place] tablet 00 TWICE A Medical DAY Branch predniSONE Yes TAKE 1 Unive rs 20 mg 2-22 TABLET BY ity of tablet 00:00: MOUTH [place] 00 [id number] Medical YS,1 TAB Branch [id number] ,1/2 TAB [id number] cilostazol 2021- No TAKE 1 Univ ers 100 mg 2-22 -17 TABLET BY ity of tablet 00:00: 00:00 MOUTH [place] 00 :00 TWICE A Medical DAY Branch simvastatin 2021- No TAKE 1 Uni vers 40 mg 2-22 -17 TABLET BY ity of tablet 00:00: 00:00 MOUTH AT [place] 00 :00 BEDTIME Medical Branch rOPINIRole 2021- No TAKE 1 Univ ers 4 mg tablet 2-22 -17 TABLET BY it y of 00:00: 00:00 MOUTH AT [place] 00 :00 BEDTIME Medical Branch traMADOL 50 2021- No TAKE 1 Uni vers mg tablet 07-26 TABLET BY ity of 00:00: 00:00 MOUTH [place] 00 :00 TWICE A Medical DAY Branch NEEDED FOR PAIN clopidogrel Yes 75mg Take 75 mg Univers 75 mg 2-21 by mouth ity of tablet 00:00: daily. [place] Medical Branch metFORMIN Yes TAKE 1 Univer s 1,000 mg 2-21 TABLET BY ity of tablet 00:00: MOUTH [place] TWICE A Medical DAY Branch clopidogrel Yes 75mg Take 75 mg Univers 75 mg 2-21 by mouth ity of tablet 00:00: daily. [place] Medical Branch metFORMIN Yes TAKE 1 Univer s 1,000 mg 2-21 TABLET BY ity of tablet 00:00: MOUTH [place] TWICE A Medical DAY Branch clopidogrel Yes 75mg Take 75 mg Univers 75 mg 2-21 by mouth ity of tablet 00:00: daily. [place] Medical Branch metFORMIN Yes TAKE 1 Univer s 1,000 mg 2-21 TABLET BY ity of tablet 00:00: MOUTH [place] [address] TWICE A Medical DAY Branch EPINEPHrine EPINEPHrine No EPINEPHrin 0.3 0.3 e [...] HCl 1000 MG Flovent HFA Flovent HFA No Flovent [...] MG 12.5 MG e_morni 12.5 MG ng} Flovent HFA Flovent HFA 2022- No Flovent 44 MCG/ACT 44 MCG/ACT 04-12 [...] 00:00 MCG/ACT :00 Flovent HFA Flovent HFA 1{puff} Flovent 44 MCG/ACT 44 MCG/ACT 04-27 HFA 44 00:00 MCG/ACT :00 Symbicort Symbicort 2020- No BID Symbicort 160-4.5 160-4.5 04-27 160-4.5 MCG/ACT MCG/ACT 00:00 MCG/ACT :00 Flovent HFA Flovent HFA No 1{puff} Flovent 44 MCG/ACT 44 MCG/ACT 04-27 HFA 44 00:00 MCG/ACT :00 Vital Signs Vital Name Observation Time Observation Value Comments Source height 2022-01-12 08:20:00 56 [in_i] [facility] weight 2022-01-12 08:20:00 107.2 [lb_av] Common [facility] temperature 2022-01-12 08:20:00 97.2 [degF] [facility] bmi 2022-01-12 08:20:00 24.03 kg/m2 [facility] oximetry 2022-01-12 08:20:00 97 % [facility] respiratory rate 2022-01-12 08:20:00 18 /min Comm on [facility] blood pressure 2022-01-12 08:20:00 146 mm[Hg] Common [facility] blood pressure 2022-01-12 08:20:00 62 mm[Hg] Common Spirit - diastolic [facility] Body temperature 2021-12-18 08:45:42 37.44 Giovanna Univ ersity of [place] Medical [facility] Systolic blood 2021-12-18 08:39:00 143 mm[Hg] Univer sity of pressure [place] [facility] Diastolic blood 2021-12-18 08:39:00 90 mm[Hg] Unive rsity of pressure [facility] Heart rate 2021-12-18 08:39:00 114 /min Universi ty of [place] [facility] Respiratory rate 2021-12-18 08:39:00 20 /min Univ ersity of [facility] Branch Body height 2021-12-18 08:39:00 149.9 cm Universi ty of [place] [facility] [place] Body weight 2021-12-18 08:39:00 48.988 kg Universi ty of [place] [facility] [place] BMI 2021-12-18 08:39:00 21.81 kg/m2 Universi ty of [facility] Oxygen saturation in 2021-12-18 08:39:00 93 /min University of Arterial blood by [facility] Pulse oximetry Branch Systolic blood 2021-12-18 03:00:00 140 mm[Hg] Univer sity of pressure [facility] Branch Diastolic blood 2021-12-18 03:00:00 90 mm[Hg] Unive rsity of pressure [facility] Heart rate 2021-12-18 03:00:00 99 /min Universi ty of [facility] Respiratory rate 2021-12-18 03:00:00 26 /min Univ ersity of [facility] Oxygen saturation in 2021-12-18 03:00:00 98 /min University of Arterial blood by [facility] Pulse oximetry Branch Body temperature 2021-12-18 02:23:00 37.5 Giovanna Univ ersity of [facility] Branch Body height 2021-12-18 02:23:00 149.9 cm Universi ty of [place] [facility] Body weight 2021-12-18 02:23:00 48.988 kg Universi ty of [place] [facility] BMI 2021-12-18 02:23:00 21.81 kg/m2 Universi ty of [place] [facility] height 2021-10-06 09:40:00 56 [in_i] Common S pirit - [facility] weight 2021-10-06 09:40:00 108.4 [lb_av] Common Spirit - [facility] temperature 2021-10-06 09:40:00 97.9 [degF] [facility] bmi 2021-10-06 09:40:00 24.3 kg/m2 Common S pirit [facility] oximetry 2021-10-06 09:40:00 94 % Common S pirit [facility] respiratory rate 2021-10-06 09:40:00 16 /min Comm on Spirit - [facility] blood pressure 2021-10-06 09:40:00 139 mm[Hg] Common Spirit - systolic [facility] blood pressure 2021-10-06 09:40:00 70 mm[Hg] Common Spirit - diastolic [facility] height 2021-04-19 09:00:00 56 [in_i] Common [facility] weight 2021-04-19 09:00:00 113.5 [lb_av] Common [facility] temperature 2021-04-19 09:00:00 97.5 [degF] Common [facility] bmi 2021-04-19 09:00:00 25.44 kg/m2 [facility] oximetry 2021-04-19 09:00:00 92 % [facility] 2021-04-19 09:00:00 128 mm[Hg] Common Spirit - systolic [facility] blood pressure 2021-04-19 09:00:00 86 mm[Hg] Common Spirit - diastolic [facility] height 2021-01-27 13:20:00 56 [in_i] Common S pirit [facility] weight 2021-01-27 13:20:00 117 [lb_av] Common [facility] temperature 2021-01-27 13:20:00 97.4 [degF] Common S pirit [facility] bmi 2021-01-27 13:20:00 26.23 kg/m2 Common S pirit [facility] oximetry 2021-01-27 13:20:00 93 % Common S pirit [facility] respiratory rate 2021-01-27 13:20:00 18 /min Comm on [facility] blood pressure 2021-01-27 13:20:00 117 mm[Hg] Common Spirit - systolic [facility] blood pressure 2021-01-27 13:20:00 52 mm[Hg] Common [facility] - diastolic [facility] Procedures Procedure Date / Time Performing Clinician Source Performed [id number] 2022-06-12 00:00:00 KARZE [facility] [id number] 2022-06-12 00:00:00 KARZE [facility] [id number] 2022-06-12 00:00:00 KARZE [facility] NON-UTMB ORDERS 2022-05-30 06:01:00 Doctor Unassigned, No Univer sit of [facility] [id number] 2022-04-14 00:00:00 CHEZU [facility] [id number] 2022-04-14 00:00:00 CHEZU [facility] [id number] 2022-04-14 00:00:00 CHEZU [facility] [id number] 2022-04-14 00:00:00 CHEZU [facility] [id number] 2022-04-14 00:00:00 CHEZU [facility] [id number] 2022-04-14 00:00:00 CHEZU [facility] [id number] 2022-04-14 00:00:00 CHEZU [facility] [id number] 2022-04-14 00:00:00 CHEZU [facility] [id number] 2022-04-12 00:00:00 RASSA [facility] CONSENT/REFUSAL FOR 2021-12-18 08:36:35 Doctor Unassigned, No Un iversity of [place] DIAGNOSIS AND TREATMENT [facility] Branch COMP. METABOLIC PANEL 2021-12-18 03:08:00 Umair Bailey [facility] ([id number]) Medical [place] CBC WITH DIFF 2021-12-18 03:08:[address] [facility] COVID-19 (ID NOW RAPID 2021-12-18 03:08:00 Umair Bailey [facility] TESTING) Medical [place] URINE DRUG (IMMUNOASSAY) 2021-12-18 02:39:00 [facility] Medical Bra nch SCREEN URINALYSIS 2021-12-18 02:39:[address] [facility] NOTICE OF PRIVACY 2021-12-18 02:08:20 Doctor Unassigned, No [facility] PRACTICES Name Medical Branch CONSENT/REFUSAL FOR 2021-12-18 02:07:28 Doctor Unassigned, No [facility] Name [facility] Encounters Start End Encounter Admission Attending Care Care Encounter Source Date/Time Date/Time Type Type Clinicians Facility Department ID 2022-07-11 Outpatient [facility] [id number] [place] 13:29:52 [id number] Health 2022-04-12 [place], STLMLC STLMLC [id number] Common 10:10:01 Ariadne [facility] 2022-01-04 Out[place], STLMLC STLMLC [id number] Common 07:52:00 Ariadne [facility] 2021-11-30 Inpatient EL Raslan, HCACL HCACL [id number] [facility] 13:00:00 Manny [id number] [facility] 2021-10-04 Out[place], STLMLC STLMLC [id number] Common 09:48:03 Ariadne [facility] 2021-07-15 Outpatient [place], STLMLC STLMLC [id number] Common 08:00:02 Ariadne [facility] 2021-06-29 Outpatient [place], STLMLC STLMLC [id number] Common 13:43:19 Ariadne [facility] 2022-06-27 2022-07-02 Inpatient Jorje HICKMAN, [facility] MED [id number] [facility] 21:14:00 12:20:00 SADIQ 2022-06-30 2022-06-30 Outpatient ALDA [facility] [id number] [place] 08:30:00 08:30:00 JOSE Espana th 2022-06-27 2022-06-27 Outpatient KATIE, [facility] MARI [id number] [facility] 18:16:00 23:59:00 SIENNA 2022-06-10 2022-06-12 Inpatient EM Nicolas, HCACL INTE.02 [id number] [facility] 18:52:00 17:47:00 Jonathon 95 [facility] 2022-06-06 2022-06-06 Outpatient CORRINE Ghosh, HCACL DAYS [id number] [facility] 08:00:00 08:01:00 Rayne 92 [facility] 2022-05-31 2022-05-31 Outpatient R UNKNOWN, [facility] [id number] Univers 10:20:30 23:59:00 ATTENDING ity of [facility] 2022-05-30 2022-05-30 Orders Doctor NATE [id number] Univers 00:00:00 00:00:00 Only Unassigned, LUPILLO [id number] ity of [place] [facility] [id number] Je as [id number] [address] 2022-05-23 2022-05-23 ([facility]EL[facility] [id number] Co mmon 00:00:00 00:00:00 Spirit - [facility] 2022-04-14 2022-04-15 Inpatient Vonda Salas HCACL INTE.02 [id number] [facility] 08:50:00 14:05:00 05 [facility] 2022-01-12 2022-01-12 OFFICE STLMLC STLC [id number] Co mmon 00:00:00 00:00:00 VISIT Yan ESTAB PT - CHI LEVEL 4 [facility] 2022-01-04 2022-01-04 (TEL) STLC STLC [id number] Co mmon 00:00:00 00:00:00 Spirit - [facility] 2021-12-18 2021-12-18 Emergency X SINGER [facility] ERT [id number] Univers 03:37:00 04:23:00 ANDREA loving [facility] 2021-12-18 2021-12-18 Emergency Singer [facility] [id number] Univers 03:37:00 04:23:00 Andrea SANDHU [id number] i ty of [place] 4.2.7.2.686 [facility] [id number] [address] 2021-12-17 2021-12-17 [facility] [id number] Univers 21:28:00 23:30:00 Umair SANDHU [id number] ity [facility] [id number] [facility] [id number] [address] 2021-12-17 2021-12-17 [facility] [id number] Univers 21:28:00 23:30:00 UMAIR loving [facility] 2021-11-30 2021-11-30 Outpatient MELODY Champion OUTD [id number] [facility] 05:11:00 05:11:00 Manny 13 [facility] 2021-11-27 2021-11-27 (TEL) STLMLC STLMLC [id number] Co mmon 00:00:00 00:00:00 Spirit - [facility] 2021-10-06 2021-10-06 OFFICE STLMLC STLMLC [id number] Co mmon 00:00:00 00:00:00 VISIT Spirit ESTAB PT - CHI LEVEL 4 [facility] 2021-04-26 2021-04-26 Inpatient RONALD HouseCL DAYS [id number] [facility] 05:15:00 05:15:00 Rayne 37 [facility] 2021-04-19 2021-04-19 OFFICE STLMLC STLMLC [id number] Co mmon 00:00:00 00:00:00 VISIT Spirit ESTAB PT - CHI LEVEL 4 [facility] 2021-04-11 2021-04-11 (TEL) STLMLC STLMLC [id number] Co mmon 00:00:00 00:00:00 Spirit - [facility] 2021-01-27 2021-01-27 OFFICE STLMLC STLMLC [id number] Co mmon 00:00:00 00:00:00 VISIT NEW Spir it PT LEVEL 4 - [facility] 2020-01-23 2020-01-23 Outpatient GRECIA FOWLER [facility] [id number] Univers 13:00:00 13:00:00 ity [facility] 2019-12-04 2019-12-04 Orders Doctor NATE [id number] 00:00:00 00:00:00 Only Unassigned, LUPILLO [id number] [place] [facility] [id number] Results Test Description Test Time Test Comments Results Result Comments Source GLUCOSE BEDSIDE 2022-06-12 16:47:00 Test Item Value Reference Range Interpretation Comme nts GLUCOSE BEDSIDE (test code = 100 MG/DL 70-110 N Performed by certified power brake operator at [facility]) [facility] GLUCOSE [id number] 13:58:00 Test Item Value Reference Range Interpretation Comments GLUCOSE BEDSIDE (test 86 MG/DL 70-110 N Perfor med by certified code = GLUBED) power brake operator at [facility] GLUCOSE [id number] 11:50:00 Test Item Value Reference Range Interpretation Comments GLUCOSE BEDSIDE (test 81 MG/DL 70-110 N Perfor med by certified code = GLUBED) power brake operator at [facility] GLUCOSE [id number] 08:16:00 Test Item Value Reference Range Interpretation Comments GLUCOSE BEDSIDE (test 86 MG/DL 70-110 N Perfor med by certified code = GLUBED) power brake operator at [facility] CBC W/O [id number] 05:37:00 Test Item Value Reference Range Interpretation [...] fL 7.0-9.0 H = MPV) BASIC METABOLIC [id number] 05:21:00 Test Item Value Reference Range Interpretation [...] = 8.4 mg/dL 8.0-10.5 N CA) GLUCOSE [id number] 23:44:00 Test Item Value Reference Range Interpretation Comments GLUCOSE BEDSIDE (test 142 MG/DL 70-110 H Perfor med by certified code = GLUBED) power brake operator at [facility] GLUCOSE [id number] 22:14:00 Test Item Value Reference Range Interpretation Comments GLUCOSE BEDSIDE (test 45 MG/DL 70-110 L Perfor med by certified code = GLUBED) power brake operator at [facility] GLUCOSE [id number] 17:05:00 Test Item Value Reference Range Interpretation Comments GLUCOSE BEDSIDE (test 95 MG/DL 70-110 N Perfor med by certified code = GLUBED) power brake operator at [facility] GLUCOSE [id number] 09:26:00 Test Item Value Reference Range Interpretation Comments GLUCOSE BEDSIDE (test 108 MG/DL 70-110 N Perfor med by certified code = GLUBED) power brake operator at [facility] TROP-I HIGH [id number] 03:07:00 Test Item Value Reference Range Interpretation Comments TROP-I HIGH 593 ng/L 0-34 HH CAUTION: Units of the SENSITIVITY (test current te st methodology code = TROPIHS) (ng/L) diffe rfrom the prior test meth odology (ng/mL) by a fa ctor of 1000. 99t h Percentile Uppe r Reference Limit (URL): Fe males: 34 ng/LMales: 54 n g/L In order to distin [facility] acute elevations of h igh sensitivitytrop onin [...] URLs mayvar y by method. TROP-I HIGH [id number] 23:53:00 Test Item Value Reference Range Interpretation [...] URL. These resu lts were obtained using [employer] IM TnI Hreagent. Results from di fferent methodologies s hould not becompared to o ne another as quantitative results and URLs mayvar y by method. GLUCOSE [id number] 23:32:00 Test Item Value Reference Range Interpretation Comments GLUCOSE BEDSIDE (test 158 MG/DL 70-110 H Perfor med by certified code = GLUBED) power brake operator at [facility] LIPOPROTEIN [id number] 18:26:00 Test Item Value Reference Range Interpretation Comments LIPOPROTEIN LDL 50.8 mg/dL 0-100 N <100 OPTIMAL 100-129 NEAR (test code = LDL) OPTIMAL/AB OVE [id number] HIGH>RB=374 RONDA Y HIGH*Guidelines provided by the National Cholesterol EducationProgra m Adult Treatment Panel III PROTHROMBIN [id number] 18:14:00 Test Item Value Reference Range Interpretation [...] (to prevent recurrent infar ct). THROMBOPLASTIN TIME [id number] 18:14:00 Test Item Value Reference Range Interpretation Comments THROMBOPLASTIN TIME 29.0 Seconds 25.0-39.5 N Therape utic Range: PARTIAL (test code = 50.4 - 88.3 Seconds PTT) Effective 09/17/2018 BASIC METABOLIC [id number] 18:11:00 Test Item Value Reference Range Interpretation [...] 8.2 mg/dL 8.0-10.5 N CA) TROP-I HIGH [id number] 18:11:00 Test Item Value Reference Range Interpretation Comments TROP-I HIGH 607 ng/L 0-34 HH Critical result called to SENSITIVITY (test DEE JONESAM, RNby code = TROPIHS) G.LAB.ATD at 1810 [...] URLs mayvar y by method. CBC W/AUTO [id number] 17:43:00 Test Item Value Reference Range Interpretation [...] NO = MDIFF) - XR CHEST 1 [id number] 00:00:00 [facility] : 1950 Sex: F FAX: Ariadne Sheikh Sarah [phone] [place]: [facility] [facility] FAX: John Saavedra MD FAX: Elena Trent APR [phone] Name: MILLERAMNJIT [facility] : 1950 Age/S: 72/F [address] [place] [address] Unit #: [id number] Loc: [place] [address] Phys: Elena Trent APRNNP Acct: [id number] Dis Date: Status: [facility] ER PHONE #: [phone] Exam Date: 06/10/2022 1710 FAX #: [phone] Reason: anemia? EXAMS: CPT CODE: [id number] XR CHEST 1 V 42519 PROCEDURE INFORMATION: Exam: XR Chest Exam date [...] aorta. Bones/joints: Unremarkable. IMPRESSION: Trace right pleural effusi on/atelectasis. Mild cardiomegaly. at 1824 Reported and signed by: Janice Hanson M.D. 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 [id number] 00:00:00 [facility] 1950 Sex: F Name: MANJIT BHATT [facility] : 1950 Age/S: 72 / F [address] [place] [address] Blvd Unit #: [id number] Loc: [place] [address] Phys: Elena Trent Acct: [id number] Dis Date: Status: ADM IN PHONE #: [phone] Exam Date: 06/10/20221826 FAX #: [phone] Reason: recent lle angiocath, decreased pulses EXAMS: CPT CODE: [id number] DOP 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 Right Superf icial femoral artery, midportion: Strong monophasic flow. The peak systolic velocity is 132 cm/sec. Right Superficial femoral artery, distal: Moderate monophasic flow. The peak systolic velocity is 59 cm/sec. Right Popliteal artery: Moderate monophasic flow. The peak systolic velocity is 67 cm/sec. Right Posterior tibial artery at the ankle: Weak to moderate monophasic flow. The peak systolic velocity is 34 cm/sec. Right Dorsalis pedis artery at [...] Superficial femoral artery, midportion: Strong monophasic flow. Thepeak systolic velocity is 89 cm/sec. Left Superficial femoral artery, distal: Strong monophasic flow. The peak systolic velocity is 122 cm/sec. Left Popliteal artery: A popliteal artery stent is noted.There is strong monophasic flow.. The peak systolic velocity is 140 cm/sec. Left Posterior tibial artery at the ankle: Strong monophasic flow. PAGE 1 Signed Report (CONTINUED) Name: BHATTMANJIT Wright [facility] : 1950 Age/S: 72 / F [address] [place] [address] Unit #: [id number] Loc: Anjel [id number] Phys: Elena Trent Acct: [id number] Dis Date: Status: ADM IN PHONE #: [phone] Exam Date: 06/10/20221826 FAX #: [phone] Reason: recent lle angiocath, decreased pulses EXAMS: CPT CODE: [id number] DOP ART RES HABILITATION ASSISTANT LEVEL LENA 83163 (Continued) The peak systolic velocity is 118 cm/sec. Left Dorsalis pedis artery at the ankle: Moderate monophasic flow. The peak systolic velocity is25 cm/sec. IMPRESSION: 1. The presence of monophasic flow in both common femoral arteries would suggest a mild degree of inflow impairment. It is noted there is strong monophasic flow in both common femoral arteries. 2. 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 There is good monophasic flow [...] ratios. at 1919 Reported and signed by: Brendan Schmitz CC: Ariadne Sheikh NP; John Saavedra MD; Elena Trent Technologist: Camelia Bustillo RDMS() Trnscb Date/Time: 06/10/2022 (1918) [email or web address] Orig Print D/T: S: 06/10/2022 (1919) Mary medel: PAGE 2 Signed ReportGLUCOSE [id number] 17:49:00 Test Item Value Reference Range Interpretation Comments GLUCOSE BEDSIDE (test 148 MG/DL 70-110 H Perfor med by certified code = GLUBED) power brake operator at [facility] BASIC METABOLIC [id number] 12:21:00 Test Item Value Reference Range Interpretation [...] the recommended for lucila for GFRby the [facility] Kidney Foundati on for Adults.The GFR will not calculate if th e sex is unknown or if thepatient's ag e is <18 years. CREATININE (test 1.0 mg/dL 0.6-1.3 N code = CREAT) CALCIUM (test code = 8.6 mg/dL 8.0-10.5 N CA) CBC W/AUTO [id number] 12:16:00 Test Item Value Reference Range Interpretation [...] REQUIRED (test code NO = MDIFF) RBC [id number] 12:16:00 Test Item Value Reference Range Interpretation Comments ANISOCYTOSIS (test code = ANISO) 3+ POLYCHROMASIA (test code = POLC) 1+ HYPOCHROMIA (test code = HYPO) 2+ POIKILOCYTOSIS (test code = POIK) 1+ MICROCYTOSIS (test code = MICR) 2+ MACROCYTOSIS (test code = MACR) 2+ SCHISTOCYTES (test code = SERENITY) FEW PROTHROMBIN [id number] 12:05:00 Test Item Value Reference Range Interpretation [...] Mec hanical prosthetic valv es (high risk), 2 .5 - 3.5 Presence of Lupus Anticoagulant o r Antiphospholipi d Antibodies, Pre vention of systemic emb olism - Acute Myocardia l Infarction (to prevent recurrent infar ct). 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 [facility] - XR CHEST 1 [id number] 00:00:00 [facility] : 1950 Sex: F FAX: Rayne Miranda [phone] [place]: St: PRE Name: MANJIT BHATT [facility] : 1950 Age/S: 72/F [address] [place] [address] Unit #: [id number] Loc: [place] [address] Phys: Rayne Ghosh MD Acct: [id number] Dis Date: Status: PRE SDC PHONE #: [phone] Exam Date: 06/06/20221125 FAX #: Reason: PREOP ORDERS EXAMS: CPT CODE: [id number] XR CHEST 1 V 46398 PROCEDURE INFORMATION:Exam: XR Chest Exam date and time: 06/06/2022 [...] Reported and signed by: Marty Gonzalez M.D. 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 at [facility] GLUCOSE [id number] 08:15:00 Test Item Value Reference Range Interpretation Comments GLUCOSE BEDSIDE (test 156 MG/DL 70-110 H Perfor med by certified code = GLUBED) power brake operator at [facility] GLUCOSE [id number] 21:25:00 Test Item Value Reference Range Interpretation Comments GLUCOSE BEDSIDE (test 119 MG/DL 70-110 H Perfor med by certified code = GLUBED) power brake operator at [facility] GLUCOSE [id number] 18:45:00 Test Item Value Reference Range Interpretation Comments GLUCOSE BEDSIDE (test 103 MG/DL 70-110 N Perfor med by certified code = GLUBED) power brake operator at [facility] GLUCOSE [id number] 12:35:00 Test Item Value Reference Range Interpretation Comments GLUCOSE BEDSIDE (test 86 MG/DL 70-110 N Perfor med by certified code = GLUBED) power brake operator at [facility] GLUCOSE [id number] 08:10:00 Test Item Value Reference Range Interpretation Comments GLUCOSE BEDSIDE (test 95 MG/DL 70-110 N Perfor med by certified code = GLUBED) power brake operator at [facility] BASIC METABOLIC [id number] 04:44:00 Test Item Value Reference Range Interpretation [...] the recommended for lucila for GFRby the [facility] Kidney Foundati on for Adults.The GFR will not calculate if th e sex is unknown or if thepatient's ag e is <18 years. CREATININE (test 1.2 mg/dL 0.6-1.3 N code = CREAT) CALCIUM (test code = 8.7 mg/dL 8.0-10.5 N CA) CBC W/AUTO [id number] 04:31:00 Test Item Value Reference Range Interpretation [...] REQUIRED (test code NO = MDIFF) GLUCOSE [id number] 20:44:00 Test Item Value Reference Range Interpretation Comments GLUCOSE BEDSIDE (test 135 MG/DL 70-110 H Perfor med by certified code = GLUBED) power brake operator at [facility] GLUCOSE [id number] 15:55:00 Test Item Value Reference Range Interpretation Comments GLUCOSE BEDSIDE (test 83 MG/DL 70-110 N Perfor med by certified code = GLUBED) power brake operator at [facility] GLUCOSE [id number] 11:17:00 Test Item Value Reference Range Interpretation Comments GLUCOSE BEDSIDE (test 85 MG/DL 70-110 N Perfor med by certified code = GLUBED) power brake operator at [facility] COAGULATION TIME [id number] 08:28:00 Test Item Value Reference Range Interpretation Comments COAGULATION TIME 224 SECONDS Performed b y ACTIVATED (test code = certi fied power brake operator ACT) at [facility] GLUCOSE [id number] 08:19:00 Test Item Value Reference Range Interpretation Comments GLUCOSE BEDSIDE (test 143 MG/DL 70-110 H Perfor med by certified code = GLUBED) power brake operator at [facility] GLUCOSE [id number] 07:50:00 Test Item Value Reference Range Interpretation Comments GLUCOSE BEDSIDE (test 90 MG/DL 70-110 N Perfor med by certified code = GLUBED) power brake operator at [facility] GLUCOSE [id number] 02:22:00 Test Item Value Reference Range Interpretation Comments GLUCOSE BEDSIDE (test 143 MG/DL 70-110 H Perfor med by certified code = GLUBED) power brake operator at [facility] GLUCOSE [id number] 02:19:00 Test Item Value Reference Range Interpretation Comments GLUCOSE BEDSIDE (test 171 MG/DL 70-110 H Perfor med by certified code = GLUBED) power brake operator at [facility] GLUCOSE [id number] 02:18:00 Test Item Value Reference Range Interpretation Comments GLUCOSE BEDSIDE (test 161 MG/DL 70-110 H Perfor med by certified code = GLUBED) power brake operator at [facility] [id number] 02:17:00 Test Item Value Reference Range Interpretation Comments ACT-ISTAT (test code 225 SEC 74-137 H Perform ed by certified = ACTI) power brake operator at [facility] GLUCOSE [id number] 07:28:00 Test Item Value Reference Range Interpretation Comments GLUCOSE BEDSIDE (test 111 MG/DL 70-110 H Perfor med by certified code = GLUBED) power brake operator at [facility] CBC W/AUTO [id number] 14:31:00 Test Item Value Reference Range Interpretation [...] REQUIRED (test code NO = MDIFF) RBC [id number] 14:31:00 Test Item Value Reference Range Interpretation Comments ANISOCYTOSIS (test code = ANISO) 2+ MICROCYTOSIS (test code = MICR) 2+ MACROCYTOSIS (test code = MACR) 1+ TARGET CELLS (test code = TGT) 1+ ELLIPTOCYTES (test code = ELL) FEW SCHISTOCYTES (test code = SERENITY) FEW BASIC METABOLIC [id number] 12:02:00 Test Item Value Reference Range Interpretation [...] = 8.5 mg/dL 8.0-10.5 N CA) PROTHROMBIN [id number] 11:59:00 Test Item Value Reference Range Interpretation [...] recurrent infar ct). - XR CHEST 2 [id number] 00:00:00 [facility] 1950 Sex: F FAX: Manny Gonzalez MD [phone] [place]: St: PRE Name: MANJIT BHATT [facility] : 1950 Age/S: 72/F [address] [place] [address] Unit #: [id number] Loc: [place] [address] Phys: Manny Grey MD Acct: [id number] Dis Date: Status: PRE [facility] PHONE #: [phone] Exam Date: 04/11/2022 1127 FAX #: [phone] Reason: PRE OP EXAMS: CPT CODE: [id number] XR CHEST 2 V 92805 PROCEDURE INFORMATION: Exam: XR ChestExam date and time: 04/11/2022 11:16 AM Age: 72 years old Clinical indication: Pre-operative exam; Cardiovascular screening and respiratory screening exam; Additional info: Pre op TECHNIQUE: Imaging protocol: Radiologic exam of the chest. Views: 2 views. PA and Lateral COMPARISON: DX XR CHEST 2 V 11/28/2021 2:34 PM FINDINGS: Lungs: No consolidation or interstitial edema. Coarse interstitial pattern is chronic in nature. Pleural spaces: No pleural effusion. No pneumothorax. Heart/Mediastinum: The heartsize is normal. Vasculature: Tortuous thoracic aorta contains calcifications. Bones/joints: No acuteabnormality. IMPRESSION: No acute cardiopulmonary process identified. at 1426 Reported and signed by: Mayo Garcia M.D.CC: Manny Grey MD Technologist: RT Babar(R) Trnscrd Date/Time/By: 04/11/2022 (6696) : B y: t.SDR.[email or web address] Orig Print D/T: S: 04/11/2022 (1466) PAGE 1 Signed ReportCOMP. METABOLIC PANEL (60516)2021-12-18 03:31:59 Test Item Value Reference Range Interpretation Comments NA (test code = 134 mmol/L 135-145 L 2216630973) K (test code = 4.5 mmol/L 3.5-5 9429572559) CL (test code = 98 mmol/L 98-108 9341922268) CO2 TOTAL (test code = 25 mmol/L 23-31 9890592245) AGAP (test code = 2-16 6893122676) BUN (test code = 20 mg/dL 7-23 5009986438) GLUCOSE (test code = 133 mg/dL 70-110 H 7415200573) CREATININE (test code = 1.04 mg/dL 0.5-1.04 2825163680) TOTAL BILI (test code = 0.4 mg/dL 0.1-1.6 2873214725) CALCIUM (test code = 8.6 mg/dL 8.6-10.6 5177465038) T PROTEIN (test code = 6.7 g/dL 6.3-8.2 2244833322) ALBUMIN (test code = 4.0 g/dL 3.5-5 7668847701) ALK PHOS (test code = 153 U/L 34-122 H 0451914277) ALTv (test code = 78 U/L 5-35 H 1742-6) AST(SGOT) (test code = 27 U/L 13-40 2663037516) eGFR (test code = mL/min/1.73m2 6408574210) KARIS (test code = KARIS) Association of [...] tests). Lab Interpretation Abnormal (test code = 38507-7) [facility] WITH [id number] 03:16:01 Test Item Value Reference Range Interpretation Comments WBC (test code = See_Comment [Automated 7882-2) message] The sy stem which generated this result transmitted reference range : 4.30 - 11.10 10*3/?L. The reference range was not used to interpret this result as normal/abnormal . RBC (test code = See_Comment L [Automated 097-8) message] The sy stem which generated this [...] RDW-SD (test code = 46.9 fL 39-49.9 94675-6) RDW-CV (test code = 18.9 % 12-15.5 H 788-0) PLT (test code = See_Comment H [Automated 777-3) message] The sy stem which generated this result transmitted reference range : 166 - 358 10*3/ ?L. The reference r claudy was not used to interpret this result as normal/abnormal . MPV (test code = 9.2 fL 9.5-12.9 L 72900-3) NRBC/100 WBC (test See_Comment [Automat ed code = 8760730332) message] The system which generated this result transmitted reference range : 0.0 - 10.0 /100 WBCs. The refer ence range was not u sed to interpret th is result as normal/abnormal . NRBC x10^3 (test code See_Comment [Auto mated = 4354751450) message] The s ystem which generated this result transmitted reference range : 10*3/?L. The reference range was not used to interpret this result as normal/abnormal . GRAN MAT (NEUT) % 67.5 % (test code = 770-8) IMM GRAN % (test code 0.40 % = 7537286177) LYMPH % (test code = 19.1 % 736-9) MONO % (test code = 11.0 % 5905-5) EOS % (test code = 1.3 % 713-8) BASO % (test code = 0.7 % 706-2) GRAN MAT x10^3(ANC) 6.97 10*3/uL 1.88-7.09 (test code = 8111152572) IMM GRAN x10^3 (test 0.04 10*3/uL 0-0.06 code = 2538320679) LYMPH x10^3 (test code 1.97 10*3/uL 1.32-3.29 = 731-0) MONO x10^3 (test code 1.13 10*3/uL 0.33-0.92 H = 742-7) EOS x10^3 (test code = 0.13 10*3/uL 0.03-0.39 711-2) BASO x10^3 (test code 0.07 10*3/uL 0.01-0.07 = 704-7) Lab Interpretation Abnormal (test code = 50610-9) 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 at [facility] CBC W/AUTO [id number] 17:02:00 Test Item Value Reference Range Interpretation [...] REQUIRED (test code NO = MDIFF) RBC [id number] 17:02:00 Test Item Value Reference Range Interpretation Comments ANISOCYTOSIS (test code = ANISO) 1+ POLYCHROMASIA (test code = POLC) SLIGHT POIKILOCYTOSIS (test code = POIK) 2+ MICROCYTOSIS (test code = MICR) 1+ TARGET CELLS (test code = TGT) RARE ELLIPTOCYTES (test code = ELL) 2+ ACANTHOCYTES (test code = ACAN) FEW NONE SCHISTOCYTES (test code = SERENITY) FEW BASIC METABOLIC [id number] 16:01:00 Test Item Value Reference Range Interpretation [...] = 8.5 mg/dL 8.0-10.5 N CA) PROTHROMBIN [id number] 15:56:00 Test Item Value Reference Range Interpretation [...] recurrent infar ct). - XR CHEST 2 [id number] 00:00:00 [facility] Dana : 1950 Sex: F FAX: Manny Gonzalez MD [phone] [place]: St: PRE Name: MILLERMANJIT Cortez [facility] : 1950 Age/S: 71/F [address] [place] [address] Blvd Unit #: [id number] Loc: [place] [address] Phys: Manny Grey MD Acct: [id number] Dis Date: Status: PRE SDC PHONE #: [phone] Exam Date: 11/28/20211512 FAX #: [phone] Reason: PREOP EXAMS: CPT CODE: [id number] XR CHEST 2 V 52847 PROCEDURE INFORMATION: Exam: XR ChestExam date and time: 11/28/2021 2:34 PM Age: 71 years old Clinical indication: Screening exam; Pre-operative exam; Cardiovascular screening; Additional info: Preop TECHNIQUE: Imaging protocol: Radiologicexam of the chest. Views: 2 views. PA and Lateral COMPARISON: DX XR CHEST 2 V 04/25/2021 3:15 AM FINDINGS: Lungs: No consolidation. Pleural spaces: No pleural effusion. Heart/Mediastinum: The heart andvascular markings are within limits of normal. There is atherosclerotic calcification of the aorta. Bones/joints: No gross acute findings. IMPRESSION: No acute cardiopulmonary findings at 1615 Reported and signed by: Gildardo Mariee D.O. CC: Manny Grey MD Technologist: RT Eder(R) Trnscrd Date/Time/By: 11/28/2021 (3253) : By: [email or web address] Orig Print D/T: S: 11/28/2021 (7506) PAGE 1 Signed ReportGLUCOSE [id number] 16:22:00 Test Item Value Reference Range Interpretation Comments GLUCOSE BEDSIDE (test 138 MG/DL 70-110 H Perfor med by certified code = GLUBED) power brake operator at [facility] GLUCOSE [id number] 13:25:00 Test Item Value Reference Range Interpretation Comments GLUCOSE BEDSIDE (test 88 MG/DL 70-110 N Perfor med by certified code = GLUBED) power brake operator at [facility] GLUCOSE [id number] 09:51:00 Test Item Value Reference Range Interpretation Comments GLUCOSE BEDSIDE (test 121 MG/DL 70-110 H Perfor med by certified code = GLUBED) power brake operator at [facility] COVID 19 Asymptomatic IH [id number] 09:53:00 Test Item Value Reference Range Interpretation [...] high or waivedcomplexit y tests. CBC W/AUTO [id number] 09:10:00 Test Item Value Reference Range Interpretation [...] x10 3/uL 0.0-0.1 N NRBC#) BASIC METABOLIC [id number] 08:30:00 Test Item Value Reference Range Interpretation [...] = 9.0 mg/dL 8.0-10.5 N CA) PROTHROMBIN [id number] 08:23:00 Test Item Value Reference Range Interpretation [...] (to prevent recurrent infar ct). THROMBOPLASTIN TIME [id number] 08:23:00 Test Item Value Reference Range Interpretation Comments THROMBOPLASTIN TIME 30.6 Seconds 25.0-39.5 N Therape utic Range: PARTIAL (test code = 50.4 - 88.3 Seconds PTT) Effective 09/17/2018 - XR CHEST 2 [id number] 00:00:00 [facility] : 1950 Sex: F FAX: Rayne Miranda [phone] [place]: St: PRE FAX: Gillian Donato Name: MANJIT BHATT [facility] :1950 Age/S: 71/F [address] [place] [address] Unit #: [id number] Loc: [place] [address] Phys:Gillian Donato ELL TEACHER Acct: [id number] Dis Date: Status: PRE [facility] PHONE #: [phone] Exam Date: 04/25/2021 0948 FAX #: [phone] Reason: PREOP EXAMS: CPT CODE: [id number] XR CHEST 2 V 56606 PROCEDURE INFORMATION: Exam: XR Chest Exam date and time: 04/25/2021 3:15 AM Age: 71 years old Clinical indication: Pre-operative exam; Respiratory screening exam; Additional info: Preop TECHNIQUE: Imagingprotocol: XR of the chest. Views: 2 views. [...] Rayne Ghosh MD; Gillian Donato NP Technologist: FARHAT [place]) Trnscrd Date/Time/By: 04/25/2021 (1656): By: [email or web address] Orig Print D/T: S: 04/25/2021 (3290) PAGE 1 Signed Report
--- NOTE | 2022-10-07 05:43 | P.HP ---
Certification for Inpatient Patient admitted to: Inpatient With expected LOS: <2 Midnights Patient will require the following post-hospital care: None Practitioner: I am a practitioner with admitting privileges, knowledge of patient current condition, hospital course, and medical plan of care. Services: Services provided to patient in accordance with Admission requirements found in Title 42 Section 412.3 of the Code of Federal Regulations Patient History Date of Service: 10/07/22 Primary Care Provider: Francesco Reason for admission: CHF Exacerbation History of Present Illness: Ms. Larson is a 72 year old female with past medial history of type 2 diabetes, chronic diastolic CHF, hypertension, COPD, Coronary artery disease, and CVA who presented to [facility] ED with complaints of shortness of breath, subjective fever, coughing x 2 days. She states that her albuterol inhaler was helping initially but is not anymore. She had to be placed on bipap upon arrival to ED and was found to have a CHF exacerbation. Chest xray showed "evolving ill- defined bilateral perihilar interstitial density likely due to fluid overload although cannot entirely exclude interstitial pneumonitis." Her labs are signifiant for glucose 390, BUN 26, creatinine 1.57, BNP 1606, and troponin 123.7. Chest xray showed sinus tach without ST elevations but did have a prolonged QT and new q wave in lead 3. She received breathing treatments, 81 mg aspirin, 30 mg lovenox, 40 mg lasix. [facility] ED provider contacted patient's taxation agent, Dr. Grey, who recommended transfer here for further management. She was able to be weaned off the bipap onto nasal cannula. Allergies Penicillins Allergy (Verified 11/02/21 13:48) Itching Home medications list reviewed: Yes Home Medications: Clopidogrel Bisulfate [Clopidogrel] 75 mg PO DAILY 05/07/15 Hydrochlorothiazide 12.5 mg PO DAILY 05/07/15 Lisinopril 10 mg PO DAILY 05/07/15 Metformin HCl 1,000 mg PO BID 05/07/15 Metoprolol Tartrate 50 mg PO BID 05/07/15 Ropinirole HCl 4 mg PO BEDTIME 05/07/15 Docusate/Senna [Senokot-S*] 2 tab PO DAILY PRN 02/24/17 Ipratropium/Albuterol Sulfate [Iprat-Albut 0.5-3(2.5) mg/3 ml] 3 ml IH PRN #1 ampul.neb 02/26/17 Atorvastatin Calcium [Lipitor] 40 mg PO DAILY 03/04/21 Fluticasone [Flovent Hfa 110*] 2 appl IH DAILY 03/04/21 - Past Medical/Surgical History Diabetic: Yes -: CVAx2 -: MS -: COPD -: CHF -: NIDDM -: HTN -: Hyperlipidemia -: Anxiety -: Heart stents -: Gisele -: Tubal ligation -: L neck sx Psychosocial/ Personal History: patient is retired. lives at home with family. - Family History Mother -: Heart disease, Diabetes - Social History Smoking Status: Current every day smoker Alcohol use: No CD- Drugs: No Caffeine use: Yes Place of Residence: Home Physical Examination - Vital Signs Blood Pressure: 106/51 Pulse: 102 Respirations: 25 Pulse Ox (%): 98 (2L NC) - Physical Exam General: Alert, In no apparent distress HEENT: Atraumatic, Normocephalic Neck: Supple Respiratory: Crackles/rales Cardiovascular: Edema Gastrointestinal: Normal bowel sounds, Hypoactive Musculoskeletal: No clubbing Integumentary: No rashes Neurological: Normal speech, Sensation intact Assessment and Plan - Problems (Diagnosis) (1) Congestive heart failure Current Visit: Yes Status: Acute Qualifiers: Heart failure type: diastolic Heart failure chronicity: acute on chronic Qualified Code(s): I50.33 - Acute on chronic diastolic (congestive) heart failure (2) COPD (chronic obstructive pulmonary disease) Current Visit: Yes Status: Chronic Qualifiers: COPD type: unspecified COPD Qualified Code(s): J44.9 - Chronic obstructive pulmonary disease, unspecified (3) Hypertension Current Visit: Yes Status: Chronic Qualifiers: Hypertension type: primary hypertension Qualified Code(s): I10 - Essential (primary) hypertension (4) Tobacco abuse Current Visit: Yes Status: Chronic (5) Diabetes mellitus Current Visit: Yes Status: Chronic Qualifiers: Diabetes mellitus type: type 2 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 Obtain echocardiogram. Consult cardiology. Monitor on telemetry. (pt reports she had echo in september but I do not see in our records) Elevated troponin likely secondary to demand ischemia. Trend. She has received 40 mg IV lasix so far and has had 2200 output. Per chart review, she was admitted about a year ago for acute CHF but left AMA and did not get full workup. Saturating appropriately on 2L. Was initially on bipap. Titrate and wean as tolerated. Monitor intake and output. Fluid restriction. Daily weights. Flagging sepsis with tachycardia and tachypnea. No source identified at this point. Will get blood cultures and lactate. Monitor and replete electrolytes per protocol. Reconcile and continue home medications. Lovenox for VTE prophylaxis. Full code. Discharge Plan: Home Plan to discharge in: Greater than 2 days - Advance Directives Does patient have a Living Will: No Does patient have a Durable POA for Healthcare: No - Code Status/Comfort Care Code Status Assessed: Yes Code Status: Full Code Physician Review: Patient Assessed, Agree with Above Assessment and Plan Critical Care: No Time Spent Managing Pts Care (In Minutes): 50
[2022-10-07 06:13] VITALS: BMI 22.2
[2022-10-07] MEDS: INSULIN -REGULAR HUMAN 50 UNIT/0.5 ML ML SQ SCH ×4 (07:56→21:00)
[2022-10-07] MEDS ORDERED: ENOXAPARIN 40 MG/0.4 ML SQ SCH (09:00)
[2022-10-07] MEDS ORDERED: HYDROCORTISONE SUC 100 MG INJ IV ONE (11:00)
[2022-10-07 11:45] LABS: Albumin 2.7 g/dL (3.4-5.0); Bilirubin Total 0.2 mg/dL (0.2-1.0); C-Reactive Protein 21.7 mg/L (<3.00); Magnesium 1.8 mg/dL (1.6-2.4); Protein, Total 6.4 g/dL (6.4-8.2)
[2022-10-07] MEDS: ACETAMINOPHEN 500 MG TAB PO PRN (12:01)
[2022-10-07] MEDS ORDERED: MAGNESIUM SULFATE 1 gm IVPB 1 GM/100 ML BAG IV ONE (13:00)
[2022-10-07 13:23] LABS: Absolute Lymphocytes (CBC) 2.3 K/uL (0.7-4.9); Hematocrit 28.9 % (36.0-45.0); Lymphocytes % 18.5 % (15.3-44.8); MPV 7.2 fL (7.6-11.3); Protime INR 1.07; RBC Red Blood Cell Count 3.91 M/uL (3.86-4.86)
[2022-10-07] MEDS ORDERED: FENTANYL CITR 100 MCG/2 ML IV ONE (14:00)
--- NOTE | 2022-10-07 16:09 | CON ---
Date of Consultation: 10/07/2022 Ms. Ness is a 72-year-old woman admitted to Dr. Raymundo's service on 10/07/2022. Mary whipple her on 10/07/2022. Reason For Consultation: Congestive heart failure exacerbation. History Of Present Illness: Patient is 72, has a history of anxiety, peripheral arterial disease, finch d a SFA stent on the right side in November of 2021. She has a history of congestive heart failure that is diastolic. She has a history of CVA, hypertension, dyslipidemia, COPD, and diabetes. Came in wit h a combination of COPD, CHF exacerbation. Denied fevers, chills, cough. Denied any chest pain, pal pitation, syncope. Past Medical History: As stated above. Allergies: SHE IS ALLERGIC TO PENICILLIN. Review of Systems: Negative. Social History: Negative. Family History: Negative. Medications: At home includes Plavix, Lipitor, inhalers, lisinopril, hydrochlorothiazide, metformin, and metoprolol. Physical Examination: General: She is very pleasant, no acute distress. She feels better. HEENT: Negative. Neck: Supple with no bruit. Chest: Revealed rales, both bases. Expiratory wheezing. Cardiac: Revealed S4 gallops. Regular rhythm and rate. Abdomen: Benign. Extremities: Revealed trace edema. Diagnostic Data: Fairly unremarkable really and her creatinine is normal. Impression And Plan: 1.Acute on chronic exacerbation of diastolic congestive heart failure. 2.Acute exacerbation of chronic obstructive pulmonary disease. 3.Anxiety. 4.Coronary artery disease, stable. 5.Peripheral arterial disease, status post right superficial femoral artery stent, stable. 6.History of cerebrovascular accident. 7.Diabetes, well controlled. 8.Hypertension, well controlled. 9.Dyslipidemia, well controlled. Patient is on appropriate therapy. Gentle diuresis. Echocardiogram is pending. We will continue to follow. NB/MODL Voice ID: [id number] Report ID: [id number]
[2022-10-07] MEDS: METOPROLOL TAR 25 MG TAB PO SCH (17:11)
[2022-10-07] MEDS: ATORVASTATIN 20 MG TAB PO SCH (21:01)
[2022-10-08 03:18] LABS: Absolute Lymphocytes (CBC) 3.1 K/uL (0.7-4.9); Hematocrit 27.7 % (36.0-45.0); Lymphocytes % 30.7 % (15.3-44.8); MCV 72.8 fL (80-100); MPV 7.2 fL (7.6-11.3); RBC Red Blood Cell Count 3.81 M/uL (3.86-4.86)
[2022-10-08 03:29] LABS: Magnesium 2.2 mg/dL (1.6-2.4); Phosphorus 3.6 mg/dL (2.5-4.9); Potassium 3.9 mEq/L (3.5-5.1); Thyroid Stimulating Hormone 0.441 uIU/mL (0.358-3.740)
[2022-10-08 03:46] LABS: Troponin High Sensitivity 3763.3 pg/mL (<58.9)
[2022-10-08] MEDS: METOPROLOL TAR 25 MG TAB PO SCH ×2 (05:52→17:48)
[2022-10-08] MEDS: INSULIN -REGULAR HUMAN 50 UNIT/0.5 ML ML SQ SCH ×4 (07:30→21:02)
[2022-10-08] MEDS: ASPIRIN EC 81 MG TAB PO SCH (08:44)
[2022-10-08] MEDS: ENOXAPARIN 60 MG/0.6 ML SQ SCH (08:44)
[2022-10-08] MEDS ORDERED: ENOXAPARIN 30 MG/0.3 ML SQ SCH (09:00)
[2022-10-08] MEDS ORDERED: POTASSIUM CL SA 10 MEQ TAB PO ONE (09:00)
[2022-10-08] MEDS: ATORVASTATIN 20 MG TAB PO SCH (21:03)
[2022-10-08] MEDS: PREGABALIN 50 MG CAP PO PRN (21:48)
[2022-10-09] MEDS: ACETAMINOPHEN 500 MG TAB PO PRN (01:53)
[2022-10-09 04:19] LABS: Absolute Lymphocytes (CBC) 3.5 K/uL (0.7-4.9); Hematocrit 28.4 % (36.0-45.0); Lymphocytes % 38.9 % (15.3-44.8); MCV 72.9 fL (80-100); MPV 7.2 fL (7.6-11.3); RBC Red Blood Cell Count 3.89 M/uL (3.86-4.86)
[2022-10-09] MEDS: PREGABALIN 50 MG CAP PO PRN (04:28)
[2022-10-09 04:36] LABS: Potassium 4.5 mEq/L (3.5-5.1)
[2022-10-09] MEDS: METOPROLOL TAR 25 MG TAB PO SCH ×2 (06:00→18:01)
[2022-10-09] MEDS: INSULIN -REGULAR HUMAN 50 UNIT/0.5 ML ML SQ SCH ×4 (07:30→22:19)
[2022-10-09] MEDS: ENOXAPARIN 60 MG/0.6 ML SQ SCH (08:27)
[2022-10-09] MEDS: ASPIRIN EC 81 MG TAB PO SCH (08:27)
[2022-10-09] MEDS ORDERED: REGADENOSON 0.4 MG/5 ML SYR IV ONE (08:44)
--- NOTE | 2022-10-09 09:56 | RAD REPORT ---
EXAM DESCRIPTION: NM - Rest Stress Cardiac Imaging - 10/09/2022 9:48 am CLINICAL HISTORY: CHF/CP Chest pain. COMPARISON: ECHOCARDIOGRAM dated 02/04/2008 TECHNIQUE: The patient was administered approximately 10mCi of Tc 99m Sestamibi prior to resting SPE CT imaging of the heart. The patient was then administered approximately 30 mCi of Tc 99m Sestamibi f ollowing exercise or pharmacologic stress. Multiplanar SPECT images were reviewed. FINDINGS: There is a moderate sized area of mild stress-induced ischemia involving the left lateral fletcher and apex. No fixed defect is seen to suggest hibernating myocardium or scarred myocardium. The end diastolic volume is 91 ml, the end systolic volume is 46 ml, and the ejection fraction is 50 %. IMPRESSION: Moderate sized area of mild stress-induced ischemia involving the lateral wall extending to apex.
--- NOTE | 2022-10-09 10:55 | TREADPHA ---
DX: CHEST PAIN, CONGESTIVE HEART FAILURE Date of Study: 10/09/22 Ht: 4' 11 " Wt: 110 lb 0 oz Consulting Physician: LEONARDO MEDICATIONS: ASPIRIN, LIPITOR, LOVENOX, NOVLIN-R, LOPRESSOR HISTORY: 72 YEAR OLD FEMALE WITH COMPLAINTS OF ABNORMAL HEART RHYTHM HISTORY OF DUI, HYPERTENSION, CORONARY ARTERY DISEASE, DALE, CEREBRAL VASCULAR ACCIDENT. PATIENT STATES ALLERGIC TO PCN PHYSICIAL EXAMINATION: RESTING B.P.: 166/64 RESTING H.R.: 63 RESTING EKG: NORMAL SINUS RHYTHM PROTOCOL: LEXISCAN EXERCISE TIME: 3:30 B.P. AT PEAK STRESS: 130/54 IMPRESSION: LEXICAN INJECTED. CARDIOLITE INJECTED- SEE NUCLEAR MEDICINE REPORT. IN RECOVERY PATIENT HAD SHORT RUN OF TACHYCARDIA. HIGHEST HEART RATE 116 TWICE DURING TEST. NO SUPRA VENTRICULAR TACHYCARDIA, PREMATURE ATRIAL COMPLEXES OR PREMATURE VENTRICULAR TACHYCARDIA NOTED. PATIENT DENIES CHEST PAIN.
--- NOTE | 2022-10-09 10:58 | P.PN ---
Subjective Date of Service: 10/09/22 Primary Care Provider: Francesco Chief Complaint: CHF Exacerbation No acute events overnight. She denies any chest pain, shortness of breath, or palpitations. She reports that her only symptom is bilateral lower extremity pain due to her neuropathy. She states that, with the topical lidocaine, her pain is well-controlled. Review of Systems 10-point ROS is otherwise unremarkable Musculoskeletal: Leg Pain (bilateral, neuropathy) Physical Examination - Vital Signs Temperature: 97.9 F Blood Pressure: 136/71 Pulse: 62 Respirations: 17 Pulse Ox (%): 98 - Physical Exam General: Alert, In no apparent distress, Oriented x3 HEENT: Atraumatic, Mucous membr. moist/pink, Sclerae nonicteric Neck: JVD not distended Respiratory: Crackles/rales (Faint, bibasilar) Cardiovascular: Regular rate/rhythm, Normal S1 S2, No gallops, No rubs, No murmurs, Edema (Trace1+ BLE) Gastrointestinal: Normal bowel sounds, Soft and benign, Non-distended, No tenderness, No rebound, No guarding Musculoskeletal: No clubbing Integumentary: No rashes Neurological: Normal speech, Normal affect - Studies Laboratory Data (last 24 hrs) 10/09/22 03:44: Sodium 131 L, Potassium 4.5 D, BUN 32 H, Creatinine 1.26 H, Glucose 130 H 10/09/22 03:44: WBC 9.10, Hgb 9.0 L, Hct 28.4 L, Plt Count 364 Assessment And Plan - Plan # Non-ST Segment Elevation Myocardial Infarction # Coronary Artery Disease s/p PCI # Peripheral Artery Disease s/p Right Superficial Femoral Artery Stent # History of Cerebrovascular Accident # Hypertension # Dyslipidemia - Evaluation thus far: - EKG: reportedly without STEMI criteria, trend - Serial troponin: 5622.6 -> 6875.2 -> 7451.8 -> 4492.8 -> 3763.3 - Ordered transthoracic echocardiogram - Ordered chest x-ray - Management plan: - Consult Cardiology and spoke with Dr. Lynch - recommendations appreciated - Plan for nuclear stress test this morning - Continue aspirin, atorvastatin, metoprolol, enoxaparin - Consider adding ALINA-inhibitor/ARB if blood pressure allows # Acute on Chronic Decompensated Congestive Heart Failure with Unknown Ejection Fraction # SIRS Criteria (Tachycardia, Tachypnea) likely due to above - no evidence of infection - Consult Cardiology and spoke with Dr. 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
[2022-10-09] MEDS: FUROSEMIDE 40 MG TABLET PO SCH (11:00)
--- NOTE | 2022-10-09 11:25 | RAD REPORT ---
EXAM DESCRIPTION: RAD - Chest Single View - 10/09/2022 11:17 am CLINICAL HISTORY: CHF Chest pain. COMPARISON: Chest Single View dated 12/14/2021; Chest Pa And Lat (2 Views) dated 11/02/2021; Chest Pa A nd Lat (2 Views) dated 03/04/2021; Chest Pa And Lat (2 Views) dated 08/05/2020 FINDINGS: Portable technique limits examination quality. The lungs are grossly clear. The heart is normal in size. No displaced fractures. IMPRESSION: No acute intrathoracic process suspected.
--- NOTE | 2022-10-09 12:44 | PN ---
Ms. Ness is in the hospital for a combination of possible CVA, COPD, congestive heart failure, co ronary artery disease, peripheral arterial disease. She had a stent of her right SFA in the past by Dr. Grey. She also has a history of CVA in the past, diabetes, hypertension, dyslipidemia. Came i n with really no chest pain, mostly dyspnea on exertion. She has an echo pending in the morning. Tr oponin had gone up to 7000. Again without any chest pain. She does have elevated procalcitonin, russell al insufficiency with creatinine 1.35, O2 saturation is 96% on nasal cannula. Hemoglobin 9.8. I am concerned about her troponin elevation. Certainly, this could be purely demand ischemia from CHF and COPD and hypoxia. She does have an echo pending. She does have high risk for coronary artery disea se and vascular disease. I recommend we do a Lexiscan on her as well on 10/09/2022. We will continu e to follow her. MARGO/GISELA Voice ID: [id number] Report ID: [id number]
[2022-10-09] MEDS ORDERED: LIDOCAINE 1% 20 ML MDV ONE (14:52)
[2022-10-09] MEDS ORDERED: HEPA 1000U/500MLS 1,000 UNIT/500 ML BAG IV ONE (14:52)
[2022-10-09] MEDS ORDERED: ALBUTEROL 2.5 MG/3 ML NEB SOL NEB PRN (18:00)
[2022-10-09] MEDS: ATORVASTATIN 20 MG TAB PO SCH (22:21)
[2022-10-10] MEDS: PREGABALIN 50 MG CAP PO PRN ×2 (00:01→17:36)
[2022-10-10 03:53] LABS: Absolute Lymphocytes (CBC) 2.6 K/uL (0.7-4.9); Hematocrit 31.6 % (36.0-45.0); Lymphocytes % 31.9 % (15.3-44.8); MCV 72.2 fL (80-100); MPV 7.1 fL (7.6-11.3); RBC Red Blood Cell Count 4.37 M/uL (3.86-4.86)
[2022-10-10 04:09] LABS: Potassium 3.3 mEq/L (3.5-5.1)
[2022-10-10] MEDS: METOPROLOL TAR 25 MG TAB PO SCH ×2 (06:05→17:35)
[2022-10-10] MEDS ORDERED: POTASSIUM CL SA 10 MEQ TAB PO ONE (09:00)
[2022-10-10] MEDS: FUROSEMIDE 40 MG TABLET PO SCH (09:01)
[2022-10-10] MEDS: ASPIRIN EC 81 MG TAB PO SCH (09:02)
[2022-10-10] MEDS: INSULIN -REGULAR HUMAN 50 UNIT/0.5 ML ML SQ SCH ×4 (09:03→20:38)
--- NOTE | 2022-10-10 11:09 | ECHO ---
HEIGHT: 4 ft 11 in WEIGHT: 110 lb 0 oz DATE OF STUDY: 10/09/[address]: Breanna Galindo 2-DIMENSIONAL: YES M.MODE: YES DOPPLER: YES COLOR FLOW: YES TDS: NO PORTABLE: YES DEFINITY: NO BUBBLE STUDY: NO DIAGNOSIS: NEW CONGESTIVE HEART CARDIAC HISTORY: CATHERIZATION: NO SURGERY: NO PROSTHETIC VALVE: NO PACEMAKER: NO MEASUREMENTS (cm) DIASTOLIC (NORMALS) SYSTOLIC (NORMALS) IVSd 1.1 (0.6-1.2) LA Diam 3.0 (1.9-4.0) LVEF 53% LVIDd 4.0 (3.5-5.7) LVIDs 3.0 (2.0-3.5) %FS 27% LVPWd 1.1 (0.6-1.2) Ao Diam 2.5 (2.0-3.7) 2 DIMENSIONAL ASSESSMENT: RIGHT ATRIUM: NORMAL LEFT ATRIUM: NORMAL RIGHT VENTRICLE: NORMAL LEFT VENTRICLE: NORMAL TRICUSPID VALVE: NORMAL MITRAL VALVE: NORMAL PULMONIC VALVE: NORMAL AORTIC VALVE: SCLEROSIS PERICARDIAL EFFUSION: NONE AORTIC ROOT: NORMAL LEFT VENTRICULAR WALL MOTION: NORMAL EJECTION FRACTION. DECREASED LEFT VENTRICULAR COMPLIANCE. DOPPLER/COLOR FLOW: NORMAL. COMMENTS: NORMAL EJECTION FRACTION WITH LEFT VENTRICULAR SIZE. DECREASED LEFT VENTRICULAR COMPLIANCE AORTIC SCLEROSIS TECHNOLOGIST: BRANDI HUMPHREYS
--- NOTE | 2022-10-10 18:41 | P.PN ---
Subjective Date of Service: 10/10/22 Primary Care Provider: Francesco Chief Complaint: CHF Exacerbation No acute events overnight. She denies any chest pain, shortness of breath, or palpitations. She reports that she is doing well this morning. Plan is for [facility] tomorrow. Review of Systems 10-point ROS is otherwise unremarkable Physical Examination - Vital Signs Temperature: 96.8 F Blood Pressure: 171/86 Pulse: 89 Respirations: 18 Pulse Ox (%): 96 - Studies Laboratory Data (last 24 hrs) 10/10/22 03:27: Sodium 129 L, Potassium 3.3 L D, BUN 41 H, Creatinine 1.20 H, Glucose 117 H 10/10/22 03:27: WBC 8.10, Hgb 10.2 L D, Hct 31.6 L, Plt Count 426 H 10/09/22 03:44: WBC 9.10, Hgb 9.0 L, Hct 28.4 L, Plt Count 364 Assessment And Plan - Plan - Physical Exam General: Alert, In no apparent distress, Oriented x3 HEENT: Atraumatic, Sclerae nonicteric Neck: JVD not distended Respiratory: Clear to auscultation bilaterally without wheezes, rhonchi, or rales Cardiovascular: Regular rate/rhythm, No murmurs, Edema (Trace1+ BLE) Gastrointestinal: Normal bowel sounds, Soft, Non-distended, No tenderness Musculoskeletal: No clubbing Integumentary: No rashes Neurological: Normal speech, Normal affect # Non-ST Segment Elevation Myocardial Infarction # Coronary Artery Disease s/p PCI # Peripheral Artery Disease s/p Right Superficial Femoral Artery Stent # History of Cerebrovascular Accident # Hypertension # Dyslipidemia - Evaluation thus far: - EKG: reportedly without STEMI criteria, trend - Serial troponin: 5622.6 -> 6875.2 -> 7451.8 -> 4492.8 -> 3763.3 - Transthoracic echocardiogram = "normal ejection fraction with left ventricular size. Decreased left ventricular compliance. Aortic sclerosis." - Chest x-ray = "no acute intrathoracic process suspected." - Nuclear stress test = "moderate sized area of mild stress-induced ischemia involving the lateral wall extending to apex." - Management plan: - Consult Cardiology and spoke with Dr. Lynch - recommendations appreciated - Plan for [facility] tomorrow morning - Recommends holding enoxaparin today - Continue aspirin, atorvastatin, metoprolol - Consider adding ALINA-inhibitor/ARB if blood pressure allows # Acute on Chronic Decompensated Diastolic Congestive Heart Failure with Preserved Ejection Fraction - resolved # SIRS Criteria (Tachycardia, Tachypnea) likely due to above - no evidence of infection - Consult Cardiology and spoke with Dr. Lynch - recommendations appreciated - Transthoracic echocardiogram = "normal ejection fraction with left ventricular size. Decreased left ventricular compliance. 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
[2022-10-10] MEDS: ATORVASTATIN 20 MG TAB PO SCH (20:38)
[2022-10-11] MEDS: PREGABALIN 50 MG CAP PO PRN ×2 (03:20→12:04)
[2022-10-11 04:21] LABS: Potassium 3.5 mEq/L (3.5-5.1)
[2022-10-11 04:24] LABS: Magnesium 2.1 mg/dL (1.6-2.4)
[2022-10-11] MEDS: METOPROLOL TAR 25 MG TAB PO SCH ×2 (05:59→17:01)
[2022-10-11] MEDS: ASPIRIN EC 81 MG TAB PO SCH (06:41)
[2022-10-11] MEDS ORDERED: LIDOCAINE 1% 20 ML MDV ONE ×2 (06:49→07:56)
[2022-10-11] MEDS ORDERED: HEPA 1000U/500MLS 2,000 UNIT/1,000 ML BAG IV ONE (06:49)
[2022-10-11] MEDS ORDERED: HEPARIN 5000 UNIT/ML 1 ML VIAL ONE (06:50)
[2022-10-11] MEDS ORDERED: VERAPAMIL HCL 10 MG/4 ML VIAL IV ONE (06:50)
[2022-10-11] MEDS ORDERED: FENTANYL CITR 100 MCG/2 ML ONE (06:50)
[2022-10-11] MEDS ORDERED: MIDAZOLAM HCL 2 MG/2 ML INJ ONE (06:50)
[2022-10-11] MEDS ORDERED: ATROPINE SULF 1 MG/10 ML SYR IV ONE (06:51)
[2022-10-11] MEDS ORDERED: NA CHLORIDE 0.9% 500 ML ONE (06:51)
[2022-10-11] MEDS ORDERED: NITROGLYCERIN 100 MCG/ML SYR (for cath lab use only) IV ONE (06:51)
[2022-10-11] MEDS ORDERED: HEPARIN 10,000 UNIT/10 ML VIAL IV ONE (06:51)
[2022-10-11] MEDS ORDERED: CLOPIDOGREL 75 MG TABLET ONE (06:51)
[2022-10-11] MEDS ORDERED: NITROGLYCERIN/D5W 25 MG/250 ML BTL IV ONE (06:52)
[2022-10-11] MEDS: INSULIN -REGULAR HUMAN 50 UNIT/0.5 ML ML SQ SCH ×4 (07:30→21:00)
[2022-10-11] MEDS ORDERED: HYDRALAZINE HCL 20 MG/ML VIAL ONE (08:18)
[2022-10-11] MEDS ORDERED: POTASSIUM CL SA 10 MEQ TAB PO ONE (09:00)
--- NOTE | 2022-10-11 11:59 | PN ---
We had planned to do a catheterization on Ms. Ness but she had eaten already, that was canceled on 10/10/2022. She continued to have some intermittent chest pain with shortness of breath and wanted to stay here till 10/11/2022 to have a heart catheterization by Dr. Grey. This is planned for now. She understands the risks and the benefits of the procedure. She agrees to proceed. She has a pos itive stress test on the lateral wall. MARGO/GISELA Voice ID: [id number] Report ID: [id number]
[2022-10-11] MEDS ORDERED: ACETAMINOPHEN 325 MG TABLET PO PRN (12:00)
[2022-10-11] MEDS ORDERED: NITROGLYCERIN 0.4 MG/TAB SL PRN (12:00)
[2022-10-11] MEDS ORDERED: NA CHLORIDE 0.9% 1,000 ML IV SCH (12:00)
[2022-10-11] MEDS: CLOPIDOGREL 75 MG TABLET PO SCH (12:04)
[2022-10-11] MEDS: FUROSEMIDE 40 MG TABLET PO SCH (12:05)
--- NOTE | 2022-10-11 13:34 | OP ---
Date of Procedure: 10/11/2022 Surgeon: ADALBERTO ALEMAN Procedures Performed: 1.Selective coronary angiogram. 2.Left heart catheterization. 3.PCI of severe proximal RCA stenosis, used 3.5 x 12 mm Synergy drug-eluting stent. Indication: Non-ST elevation myocardial infarction. Access: Right femoral artery 6-Norwegian closed with manual pressure. Complications: None. Bleeding: Less than 20 mL. Anesthesia: Total sedation time was 45 minutes. Used fentanyl and Versed. Description Of Procedure: After risks, benefits, and alternatives were explained, the patient agreed to the procedure and signed informed consent. The patient was brought into the cardiac catheterizat ion laboratory, prepped and draped in the usual sterile fashion. Then, I accessed right femoral rahul ry using micropuncture kit, ultrasound guidance and fluoroscopy, placed a 6-Norwegian [place] sheath. Then, I took a 6-Norwegian JL4 catheter into the aortic root, engaged left main, and then exchanged for 6-Norwegian JR4 catheter, engaged RCA, took standard views and then catheter was pushed over the wire in to the LV, measured the LVEDP and pullback did not record any gradient. Then, we gave systemic hepar in to assure ACT level above 250. Gave 600 mg of Plavix. The patient is already on aspirin. Then, I took a 6-Norwegian JR4 guide with side holes into the aortic root, engaged the RCA and then took a Run -Through wire into the RCA, placed it distally. The lesions were predilated using a 3.5 NC balloon. Lesion expanded very well and then I placed a 3.5 x 12 mm Synergy drug-eluting stent, overlapped wit h proximal RCA stent. Excellent results the end, dropping the stenosis from 99% to 0% with MALCOLM-3 fl ow as a result. I removed the wire and the guide and the sheath, and manual pressure was applied wit h good hemostasis. Heparin was given throughout the procedure to ensure ACT level above 250. Findings: 1.Left main; large, normal. 2.LAD; proximal 20%. Then, diagonal branch has about 40% proximally. Mid segment, there is 30% vadim nosis and then normal. 3.Left circumflex; it is moderate-sized, normal. No disease. 4.RCA; large and dominant with proximal 99% stenosis, status post successful PCI and there is a long stent proximal to mid extending even to the distal segment with diffuse 10% iSR and then the PDA has diffuse 40% to 50% stenosis with MALCOLM-3 flow. 5.Elevated LVEDP at 30 mmHg. Conclusion: 1.Severe proximal and ostial RCA stenosis, status post successful PCI as above. 2.Patent proximal to mid RCA stent. 3.Mild coronary artery disease otherwise. 4.Elevated LVEDP. Plan: 1.Aspirin, Plavix, and statin. 2.Diuretics. Follow up in the office in 4 weeks post discharge. SR/MODL Voice ID: [id number] Report ID: [id number]
--- NOTE | 2022-10-11 13:45 | RAD REPORT ---
EXAM DESCRIPTION: CT - Thorax Wo Con CLINICAL HISTORY: Chest pain rule out food bolus - esophagus COMPARISON: <Comparisons> FINDINGS: Mild COPD. Tiny nonspecific subpleural nodule medial right upper lobe measuring 4 mm. No p leural thickening or pleural effusion. No pneumothorax. Aortic atherosclerosis. No axillary, mediastinal or hilar adenopathy. The esophagus is normal in size. There is no evidence of retained esophageal food stuff. Stomach has a normal appearance. No concerning bony finding. No gross upper abdominal finding. All CT scans are performed using dose optimization technique as appropriate and may include automated exposure control or mA/KV adjustment according to patient size. IMPRESSION: No worrisome esophageal abnormality. Mild COPD.
[2022-10-11] MEDS: LIDOCAINE 5% OINT 30 GM TUBE TOP PRN (17:00)
--- NOTE | 2022-10-11 19:26 | P.PN ---
Subjective Date of Service: 10/11/22 Primary Care Provider: Francesco Chief Complaint: CHF Exacerbation This morning, she underwent C with PCI to the RCA. She was seen post procedure, and appeared to be doing well. She reported complete resolution of her symptoms. She denies any chest pain, shortness of breath, or palpitations. Of note, shortly after return to the floor, I was notified by nurse discharge Rhonda that Ms. Larson combined all of her pills and consumed them at once. She was worried that the pills may be lodged in her esophagus. A CT chest was obtained, which did not reveal evidence of a obstruction. Review of Systems 10-point ROS is otherwise unremarkable Physical Examination - Vital Signs Temperature: 97.0 F Blood Pressure: 114/58 Pulse: 82 Respirations: 20 Pulse Ox (%): 100 - Studies Laboratory Data (last 24 hrs) 10/11/22 02:41: Sodium 130 L, Potassium 3.5, BUN 41 H, Creatinine 1.20 H, Glucose 124 H, Magnesium 2.1 Assessment And Plan - Plan - Physical Exam General: Alert, In no apparent distress, Oriented x3 HEENT: Atraumatic, Sclerae nonicteric Neck: JVD not distended Respiratory: Clear to auscultation bilaterally without wheezes, rhonchi, or rales Cardiovascular: Regular rate/rhythm, No murmurs, Edema (Trace BLE) Gastrointestinal: Normal bowel sounds, Soft, Non-distended, No tenderness Musculoskeletal: No clubbing Integumentary: No rashes Neurological: Normal speech, Normal affect # Non-ST Segment Elevation Myocardial Infarction # Coronary Artery Disease s/p PCI # Peripheral Artery Disease s/p Right Superficial Femoral Artery Stent # History of Cerebrovascular Accident # Hypertension # Dyslipidemia - Evaluation thus far: - EKG: reportedly without STEMI criteria, trend - Serial troponin: 5622.6 -> 6875.2 -> 7451.8 -> 4492.8 -> 3763.3 - Transthoracic echocardiogram = "normal ejection fraction with left ventricular size. Decreased left ventricular compliance. Aortic sclerosis." - Chest x-ray = "no acute intrathoracic process suspected." - Nuclear stress test = "moderate sized area of mild stress-induced ischemia involving the lateral wall extending to apex." - Management plan: - Consult Cardiology and spoke with Dr. Lynch - recommendations appreciated - S/P LHC with PCI to RCA - Continue aspirin, atorvastatin, metoprolol, clopidogrel - Consider adding ALINA-inhibitor/ARB if blood pressure allows # Acute on Chronic Decompensated Diastolic Congestive Heart Failure with Preserved Ejection Fraction - resolved # SIRS Criteria (Tachycardia, Tachypnea) likely due to above - no evidence of infection - Consult Cardiology and spoke with Dr. Lynch - recommendations appreciated - Transthoracic echocardiogram = "normal ejection fraction with left ventricular size. Decreased left ventricular compliance. 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
[2022-10-11] MEDS: ATORVASTATIN 20 MG TAB PO SCH (21:08)
[2022-10-12] MEDS: PREGABALIN 50 MG CAP PO PRN ×3 (00:45→19:27)
[2022-10-12] MEDS: LIDOCAINE 5% OINT 30 GM TUBE TOP PRN ×2 (03:17→19:28)
[2022-10-12 04:08] LABS: Potassium 3.9 mEq/L (3.5-5.1)
[2022-10-12] MEDS: METOPROLOL TAR 25 MG TAB PO SCH ×2 (05:00→17:12)
[2022-10-12] MEDS: CLOPIDOGREL 75 MG TABLET PO SCH (08:20)
[2022-10-12] MEDS: FUROSEMIDE 40 MG TABLET PO SCH (08:20)
[2022-10-12] MEDS: INSULIN -REGULAR HUMAN 50 UNIT/0.5 ML ML SQ SCH ×4 (08:21→20:50)
[2022-10-12] MEDS: ASPIRIN EC 81 MG TAB PO SCH (08:21)
[2022-10-12] MEDS ORDERED: POTASSIUM CL SA 10 MEQ TAB PO ONE (09:00)
[2022-10-12] MEDS: ENOXAPARIN 60 MG/0.6 ML SQ SCH (09:25)
--- NOTE | 2022-10-12 09:40 | P.CNS ---
Date of Consult: 10/12/22 Reason for Consult: Hyponatremia Requesting Physician: Henry Santana Primary Care Provider: Dr. Maya Chief Complaint: CHF Exacerbation History of Present Illness: Ms. Larson is a 72 year old female with past medial history of type 2 diabetes, chronic diastolic CHF, hypertension, COPD, Coronary artery disease, and CVA who presented to [facility] ED with complaints of shortness of breath, subjective fever, coughing x 2 days. She states that her albuterol inhaler was helping initially but is not anymore. She had to be placed on bipap upon arrival to ED and was found to have a CHF exacerbation. Chest xray showed "evolving ill- defined bilateral perihilar interstitial density likely due to fluid overload although cannot entirely exclude interstitial pneumonitis." Her labs are signifiant for glucose 390, BUN 26, creatinine 1.57, BNP 1606, and troponin 123.7. Chest xray showed sinus tach without ST elevations but did have a prolonged QT and new q wave in lead 3. She received breathing treatments, 81 mg aspirin, 30 mg lovenox, 40 mg lasix. [facility] ED provider contacted patient's deadener, Dr. Grey, who recommended transfer here for further management. She was able to be weaned off the bipap onto nasal cannula. Allergies Penicillins Allergy (Verified 11/02/21 13:48) Itching Home medications list reviewed: Yes Home Medications: Clopidogrel Bisulfate [Clopidogrel] 75 mg PO DAILY 05/07/15 Hydrochlorothiazide 12.5 mg PO DAILY 05/07/15 Lisinopril 10 mg PO DAILY 05/07/15 Metformin HCl 1,000 mg PO BID 05/07/15 Metoprolol Tartrate 50 mg PO BID 05/07/15 Ropinirole HCl 4 mg PO BEDTIME 05/07/15 Docusate/Senna [Senokot-S*] 2 tab PO DAILY PRN 02/24/17 Ipratropium/Albuterol Sulfate [Iprat-Albut 0.5-3(2.5) mg/3 ml] 3 ml IH PRN #1 ampul.neb 02/26/17 Atorvastatin Calcium [Lipitor] 40 mg PO DAILY 03/04/21 Fluticasone [Flovent Hfa 110*] 2 appl IH DAILY 03/04/21 Albuterol Neb [Proventil 0.083% Neb Soln] 2.5 mg NEB Q6HP PRN #60 amp 10/08/22 Hydrocodone 10/APAP 325 [[place] 10/325] 1 tab PO Q6H PRN #30 tab 10/08/22 - Past Medical/Surgical History Diabetic: Yes -: CVAx2 -: CAD/ [place] -: COPD/ SubPleural Nodule -: Diastolic CHF -: NIDDM -: HTN -: Hyperlipidemia -: Anxiety -: CKD III with Proteinuria -: Heart stents -: Gisele -: Tubal ligation -: L neck sx Psychosocial/ Personal History: patient is retired. lives at home with family. - Family History Mother Medical History: Heart disease, Diabetes - Social History Smoking Status: Current every day smoker Alcohol use: No CD- Drugs: No Caffeine use: Yes Place of Residence: Home Review of Systems 10-point ROS is otherwise unremarkable Physical Examination Temp Pulse Resp BP Pulse Ox 97.3 F 63 16 144/51 H 96 10/12/22 08:00 10/12/22 08:00 10/12/22 08:00 10/12/22 08:00 10/12/22 08:00 General: In no apparent distress, Oriented x3, Cooperative HEENT: Atraumatic Neck: Supple Respiratory: Clear to auscultation bilaterally Cardiovascular: No edema, Regular rate/rhythm Gastrointestinal: Soft and benign, Non-distended Musculoskeletal: No clubbing, No contractures Integumentary: No rashes, No cyanosis Neurological: Normal speech Laboratory Data (last 24 hrs) 10/12/22 02:47: Sodium 126 L D, Potassium 3.9, BUN 41 H, Creatinine 1.31 H, Gl ucose 148 H Imagings Data: LEFT VENTRICULAR WALL MOTION: NORMAL EJECTION FRACTION. DECREASED LEFT VENTRICULAR COMPLIANCE. DOPPLER/COLOR FLOW: NORMAL. COMMENTS: NORMAL EJECTION FRACTION WITH LEFT VENTRICULAR SIZE. DECREASED LEFT VENTRICULAR COMPLIANCE AORTIC SCLEROSIS EXAM DESCRIPTION: RAD - Chest Single View - 10/09/2022 11:17 am CLINICAL HISTORY: CHF Chest pain. COMPARISON: Chest Single View dated 12/14/2021; Chest Pa And Lat (2 Views) dated 11/02/2021; Chest Pa And Lat (2 Views) dated 03/04/2021; Chest Pa And Lat (2 Views) dated 08/05/2020 FINDINGS: Portable technique limits examination quality. The lungs are grossly clear. The heart is normal in size. No displaced fractures. IMPRESSION: No acute intrathoracic process suspected. EXAM DESCRIPTION: CT - Thorax Wo Con CLINICAL HISTORY: Chest pain rule out food bolus - esophagus COMPARISON: <Comparisons> FINDINGS: Mild COPD. Tiny nonspecific subpleural nodule medial right upper lobe measuring 4 mm. No pleural thickening or pleural effusion. No pneumothorax. Aortic atherosclerosis. No axillary, mediastinal or hilar adenopathy. The esophagus is normal in size. There is no evidence of retained esophageal food stuff. Stomach has a normal appearance. No concerning bony finding. No gross upper abdominal finding. All CT scans are performed using dose optimization technique as appropriate and may include automated exposure control or mA/KV adjustment according to patient size. IMPRESSION: No worrisome esophageal abnormality. Conclusions/Impression: CKD IIIa with Proteinuria -No NSAIDs -Restart Lisinopril Hyponatremia -Continue Lasix -Avoid thiazide -Repeat BMP today at 1400 Hypokalemia -Replete prn -Restart Lisinopril HTN with CHF/ CKD -Restart Lisinopril Diastolic CHF, chronic -Continue Lasix DM II with CKD & Polyneuropathy -Continue Lyrica -No sugar diet -RISS Hypoalbuminemia Anemia in chronic illness Microcytosis Hx iron deficiency -Monitor H&H -Consider iron supplementation Aortic Atherosclerosis -Continue Lipitor Case reviewed with Dr. Santana Thank you kindly for the consultation
--- NOTE | 2022-10-12 09:48 | PN ---
Date of Progress Note: 10/12/2022 Ms. Ness underwent heart catheterization for a positive stress test. She underwent an angioplasty and stent of her RCA yesterday. Today, she had no complaint. She is ambulating in the hallways. V ital signs stable, afebrile. Telemetry is within normal limits. The catheterization entry site is i ntact without any hematoma. She is still suffering with some hyponatremia. Nephrology has been cons ulted and no further cardiac workup at this point. Continue present regimen. She needs to be on asp irin, Plavix, and a statin and a low-dose beta-sinai. MARGO/GISELA Voice ID: [id number] Report ID: [id number]
[2022-10-12] MEDS: lisinopriL 10 MG TAB PO SCH (11:43)
[2022-10-12 14:38] LABS: Potassium 4.2 mEq/L (3.5-5.1)
--- NOTE | 2022-10-12 19:08 | P.PN ---
Subjective Date of Service: 10/12/22 Primary Care Provider: Francesco Chief Complaint: CHF Exacerbation Yesterday, she underwent left heart catheterization with PCI to the right coronary artery. She has been doing well postprocedure. However, this morning her sodium level had decreased to 126. Nephrology consulted for assistance with hyponatremia. She denies any chest pain, shortness of breath, or palpitations. Review of Systems 10-point ROS is otherwise unremarkable Physical Examination - Vital Signs Temperature: 97.8 F Blood Pressure: 112/60 Pulse: 102 Respirations: 16 Pulse Ox (%): 96 - Studies Laboratory Data (last 24 hrs) 10/12/22 13:40: Sodium 126 L, Potassium 4.2, BUN 44 H, Creatinine 1.48 H, Glucose 172 H 10/12/22 02:47: Sodium 126 L D, Potassium 3.9, BUN 41 H, Creatinine 1.31 H, Glucose 148 H Microbiology Data (last 24 hrs): 10/07/22 07:45 Blood - Blood Aerobic Blood Culture - Final No growth in 5 days. 10/07/22 07:45 Blood - Blood Anaerobic Blood Culture - Final No growth in 5 days. Assessment And Plan - Plan - Physical Exam General: Alert, In no apparent distress, Oriented x3 HEENT: Atraumatic, Sclerae nonicteric Neck: JVD not distended Respiratory: Clear to auscultation bilaterally without wheezes, rhonchi, or rales Cardiovascular: Regular rate/rhythm, No murmurs, Edema (Trace BLE) Gastrointestinal: Normal bowel sounds, Soft, Non-distended, No tenderness Musculoskeletal: No clubbing Integumentary: No rashes Neurological: Normal speech, Normal affect # Non-ST Segment Elevation Myocardial Infarction # Coronary Artery Disease s/p PCI # Peripheral Artery Disease s/p Right Superficial Femoral Artery Stent # History of Cerebrovascular Accident # Hypertension # Dyslipidemia - Evaluation thus far: - EKG: reportedly without STEMI criteria, trend - Serial troponin: 5622.6 -> 6875.2 -> 7451.8 -> 4492.8 -> 3763.3 - Transthoracic echocardiogram = "normal ejection fraction with left ventricular size. Decreased left ventricular compliance. Aortic sclerosis." - Chest x-ray = "no acute intrathoracic process suspected." - Nuclear stress test = "moderate sized area of mild stress-induced ischemia involving the lateral wall extending to apex." - Management plan: - Consult Cardiology and spoke with Dr. Lynch - recommendations appreciated - S/P LHC with PCI to RCA - Continue aspirin, atorvastatin, metoprolol, clopidogrel - Consider adding ALINA-inhibitor/ARB if blood pressure allows # Acute on Chronic Decompensated Diastolic Congestive Heart Failure with Preserved Ejection Fraction - resolved # SIRS Criteria (Tachycardia, Tachypnea) likely due to above - no evidence of infection - Consult Cardiology and spoke with Dr. Lynch - recommendations appreciated - Transthoracic echocardiogram = "normal ejection fraction with left ventricular size. Decreased left ventricular compliance. Aortic sclerosis." - Continue PO furosemide - Continue metoprolol - Daily weights - Strict I/O - Cardiac diet, 2 L fluid restriction, 2 g Na restriction # Acute on Chronic Hyponatremia - Consulted Nephrology and spoke with Dr. 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
[2022-10-12] MEDS ORDERED: NA CHLORIDE 0.9% 1,000 ML IV SCH (20:30)
[2022-10-12] MEDS: ATORVASTATIN 20 MG TAB PO SCH (20:49)
[2022-10-12] MEDS: ROPINIROLE HCL 1 MG TAB PO SCH (23:10)
[2022-10-13 03:14] LABS: Magnesium 2.3 mg/dL (1.6-2.4); Potassium 4.2 mEq/L (3.5-5.1); Uric Acid 6.6 mg/dL (2.6-6.0)
[2022-10-13] MEDS: METOPROLOL TAR 25 MG TAB PO SCH (05:07)
[2022-10-13] MEDS: LIDOCAINE 5% OINT 30 GM TUBE TOP PRN (05:56)
[2022-10-13 06:10] LABS: Urine Protein/Creatinine Ratio 0.76 ratio (<0.15)
[2022-10-13 06:36] LABS: UR MICROALBUMIN 11.3 mg/dL (< 1.9)
[2022-10-13 06:48] LABS: Specific Gravity 1.008 (1.005-1.030); Urine Bacteria None Seen /HPF (<20); Urine Bilirubin NEGATIVE (Negative); Urine Blood Negative (Negative); Urine Clarity Clear (Clear); Urine Color Colorless (Yellow); Urine Glucose NEGATIVE (Negative); Urine Protein NEGATIVE (Negative); Urine RBC None Seen /HPF (None Seen); Urine Urobilinogen Normal (Normal); Urine pH 6.5 (5.0-7.0)
[2022-10-13] MEDS: INSULIN -REGULAR HUMAN 50 UNIT/0.5 ML ML SQ SCH ×2 (07:30→12:04)
[2022-10-13] MEDS: ROPINIROLE HCL 1 MG TAB PO SCH (08:47)
[2022-10-13] MEDS: lisinopriL 10 MG TAB PO SCH (08:47)
[2022-10-13] MEDS: CLOPIDOGREL 75 MG TABLET PO SCH (08:48)
[2022-10-13] MEDS: ASPIRIN EC 81 MG TAB PO SCH (08:48)
[2022-10-13 08:53] VITALS: O2SAT 97
[2022-10-13] MEDS ORDERED: ENOXAPARIN 30 MG/0.3 ML SQ SCH (09:00)
[2022-10-13] MEDS ORDERED: TORSEMIDE 20 MG TAB PO SCH (11:00)
[2022-10-13 12:07] VITALS: BP 112/59
--- NOTE | 2022-10-13 12:15 | P.DS ---
Admission Date: 10/07/22 Discharge Date: 10/13/22 Primary Care Provider: Dr. Maya Disposition: ROUTINE DISCHARGE Discharge Condition: GOOD Reason for Admission: CHF Exacerbation Consultations: 1. Cardiology 2. Nephrology Procedures: 10/11/2022 - with Dr. Grey Procedures Performed: 1. Selective coronary angiogram. 2. Left heart catheterization. 3. PCI of severe proximal RCA stenosis, used 3.5 x 12 mm Synergy drug-eluting stent. 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 Mukul Larson is a 72 year old female with a past medical history significant for coronary artery disease s/p PCI, peripheral artery disease s/p right superficial femoral artery stent, prior cerebrovascular accident, chronic diastolic congestive heart failure, hypertension, dyslipidemia, type 2 diabetes, and chronic obstructive pulmonary disease who was admitted to the [facility] on 10/07/2022 for congestive heart failure exacerbation. She was admitted to the Medicine service. Upon further evaluation, she was found to have an NSTEMI and an acute on chronic decompensated congestive heart failure exacerbation. Her EKG was without STEMI criteria. Her troponin trend was 5622.6 -> 6875.2 -> 7451.8 -> 4492.8 -> 3763.3. Her chest x-ray revealed, "no acute intrathoracic process suspected." Her transthoracic echocardiogram revealed, "normal ejection fraction with left ventricular size. Decreased left ventricular compliance. Aortic sclerosis." Cardiology was consulted and she was evalauted by Dr. Lynch. He recommended a nuclear stress test, which revealed, "moderate sized area of mild stress-induced ischemia involving the lateral wall extending to apex." On 10/11/2022, she underwent a left heart catheterization, which revealed 99% occlusion to the right coronary artery. She underwent PCI, and tolerated the procedure well. Post-operatively, she developed acute on chronic hyponatremia. Nephrology was consulted and she was evaluated by Dr. Soler. He cleared her for discharge, but recommended that she start torsemide 20 mg daily, discontinue her home hydrochlorothiazide, and reduce her lisinopril dose from 10 mg to 5 mg. These instructions were given to her and she verbalized understanding. Incidentally, she was found to have a 4 mm right upper pulmonary nodule. She was advised to follow this up with her PCP for further evaluation. She verbalized understanding and agreed to make this appointment. On 10/13/2022, she was seen on morning rounds and deemed medically stable for discharge. She was discharged with instructions to schedule follow-up appointments with her PCP (Dr. Maya), with Cardiology (Dr. Lynch), and with Nephrology (Dr. Soler). She was provided prescriptions for metoprolol, clopidogrel, torsemide, and lisinopril. She was given the opportunity to ask questions and reported no further questions. Furthermore, all questions were answered to the best of my ability. A copy of this discharge summary will be sent to the above providers to facilitate continuity of care. Today, I personally spent 35 minutes on her case, of which greater than 50% of the time was spent in patient education, counseling, and coordination of care as described above. - Physical Exam General: Alert, In no apparent distress, Oriented x3 HEENT: Atraumatic, Sclerae nonicteric Neck: JVD not distended Respiratory: Clear to auscultation bilaterally without wheezes, rhonchi, or rales Cardiovascular: Regular rate/rhythm, No murmurs, No edema Gastrointestinal: Normal bowel sounds, Soft, Non-distended, No tenderness Musculoskeletal: No clubbing Integumentary: No rashes Neurological: Normal speech, Normal affect Vital Signs/Physical Exam: Temp Pulse Resp BP Pulse Ox 97.2 F 70 14 112/59 L 97 10/13/22 08:00 10/13/22 12:06 10/13/22 08:00 10/13/22 12:06 10/13/22 08:00 Laboratory Data at Discharge: WBC 8.10 thou/uL (4.3-10.9) 10/10/22 03:27 Hgb 10.2 g/dL (12.0-15.0) L D 10/10/22 03:27 Hct 31.6 % (36.0-45.0) L 10/10/22 03:27 Plt Count 426 thou/uL (152-406) H 10/10/22 03:27 PT 11.8 SECONDS (9.5-12.5) 10/07/22 12:54 INR 1.07 10/07/22 12:54 Sodium 126 mEq/L (136-145) L 10/13/22 02:38 Potassium 4.2 mEq/L (3.5-5.1) 10/13/22 02:38 BUN 51 mg/dL (7-18) H 10/13/22 02:38 Creatinine 1.52 mg/dL (0.55-1.02) H 10/13/22 02:38 Glucose 203 mg/dL (74-106) H 10/13/22 02:38 Uric Acid 6.6 mg/dL (2.6-6.0) H 10/13/22 02:38 Phosphorus 3.6 mg/dL (2.5-4.9) 10/08/22 02:47 Magnesium 2.3 mg/dL (1.6-2.4) 10/13/22 02:38 Total Bilirubin 0.2 mg/dL (0.2-1.0) 10/07/22 10:57 AST 34 U/L (15-37) 10/07/22 10:57 ALT 18 U/L (13-56) 10/07/22 10:57 Alkaline Phosphatase 127 U/L (45-117) H 10/07/22 10:57 Triglycerides 72 mg/dL (<150) 10/08/22 02:47 Cholesterol 152 mg/dL (<200) 10/08/22 02:47 HDL Cholesterol 72 mg/dL (40-60) H 10/08/22 02:47 Cholesterol/HDL Ratio 2.11 10/08/22 02:47 Home Medications: Lisinopril 10 mg PO DAILY 05/07/15 Metformin HCl 1,000 mg PO BID 05/07/15 Ropinirole HCl 4 mg PO TID 05/07/15 Atorvastatin Calcium [Lipitor] 40 mg PO DAILY 03/04/21 Fluticasone [Flovent Hfa 110*] 2 appl IH PRN 10/01/21 Albuterol Neb [Proventil 0.083% Neb Soln] 2.5 mg NEB Q6HP PRN #60 amp 10/08/22 Hydrocodone 10/APAP 325 [[place] 10/325] 1 tab PO Q6H PRN #30 tab 10/08/22 ALPRAZolam [Xanax*] 0.5 mg PO BID 10/12/22 Pantoprazole [Protonix Tab*] 40 mg PO DAILY 10/12/22 Rivaroxaban [Xarelto*] 15 mg PO DAILY 10/12/22 Clopidogrel Bisulfate [Plavix*] 75 mg PO DAILY #30 tab 10/13/22 Metoprolol Tartrate [Lopressor*] 12.5 mg PO BID 6AM 6PM #30 tab 10/13/22 Torsemide [Demadex*] 20 mg PO DAILY #30 tab 10/13/22 lisinopriL [Lisinopril] 5 mg PO DAILY #30 tab 10/13/22 New Medications: Albuterol Neb [Proventil 0.083% Neb Soln] 2.5 mg NEB Q6HP PRN #60 amp PRN Reason: Shortness Of Breath Torsemide [Demadex*] 20 mg PO DAILY #30 tab lisinopriL [Lisinopril] 5 mg PO DAILY #30 tab Metoprolol Tartrate [Lopressor*] 12.5 mg PO BID 6AM 6PM #30 tab Hydrocodone 10/APAP 325 [[place] 10/325] 1 tab PO Q6H PRN #30 tab PRN Reason: Pain Clopidogrel Bisulfate [Plavix*] 75 mg PO DAILY #30 tab Physician Discharge Instructions: 1. Please call and schedule a follow-up appointment with your PCP (Dr. Maya) in 3-5 days - You have a small spot on your right lung and you need to follow it closely because it has the possibility to be a cancer. Please have your PCP follow-up to make sure it is not growing. 2. Please call and schedule a follow-up appointment with Nephrology (Dr. Soler) in 3-5 days - Please have him check your kidney function blood work and sodium levels 3. Please call and schedule a follow-up appointment with Cardiology (Dr. Lynch) in 5-7 days - Please have him refill your heart medications - Please check your blood pressure 2 times a day and keep a journal. Please bring this journal to your next appointment with Dr. Soler - Please restrict your fluid intake to 1.5 L a day - Please stop taking hydrochlorothiazide - We are reducing your lisinopril dose from 10 mg to 5 mg. Please stop taking your lisinopril 10 mg tablets. A new prescription for 5 mg has been sent to your pharmacy. Diet: AHA Activity: Ad neno Followup: Adam Lynch MD [ACTIVE - CAN ADMIT] - 1-2 Weeks (call to schedule an appointment) Gina Maya DO [OUTSIDE PHYSICIAN] - Leonardo Soler [ACTIVE - CAN ADMIT] - Time spent managing pt's care (in minutes): 35
[2022-10-13 13:37] VITALS: TEMP 97.3
[2022-10-14] MEDS ORDERED: lisinopriL 5 MG TAB PO SCH (09:00)
== END 2022-10-13 14:15 | disposition home or self-care (01) | DRG 246 ==
LOC: 2ND 05:25
PROVIDERS: ADMIT Hospitalist; ATTEND Internal Medicine
PROC: 027034Z Dilation of Coronary Artery, One Artery with Drug-eluting Intraluminal Device, Percutaneous Approach (ICD-10-PCS; principal; 2022-10-11)
PROC: 4A023N7 Measurement of Cardiac Sampling and Pressure, Left Heart, Percutaneous Approach (ICD-10-PCS; 2022-10-11)
PROC: B2111ZZ Fluoroscopy of Multiple Coronary Arteries using Low Osmolar Contrast (ICD-10-PCS; 2022-10-11)
DX: I13.0 Hypertensive heart and chronic kidney disease with heart failure and stage 1 through stage 4 chronic kidney disease, or unspecified chronic kidney disease (principal); I21.4 Non-ST elevation (NSTEMI) myocardial infarction; I50.33 Acute on chronic diastolic (congestive) heart failure; R65.10 Systemic inflammatory response syndrome (SIRS) of non-infectious origin without acute organ dysfunction; E87.1 Hypo-osmolality and hyponatremia; N18.30 Chronic kidney disease, stage 3 unspecified; E11.22 Type 2 diabetes mellitus with diabetic chronic kidney disease; E11.42 Type 2 diabetes mellitus with diabetic polyneuropathy; E78.5 Hyperlipidemia, unspecified; E87.6 Hypokalemia; I70.0 Atherosclerosis of aorta; F41.9 Anxiety disorder, unspecified; D50.9 Iron deficiency anemia, unspecified; E88.09 Other disorders of plasma-protein metabolism, not elsewhere classified; I25.10 Atherosclerotic heart disease of native coronary artery without angina pectoris; F17.200 Nicotine dependence, unspecified, uncomplicated; R91.8 Other nonspecific abnormal finding of lung field; Z88.0 Allergy status to penicillin; Z86.73 Personal history of transient ischemic attack (TIA), and cerebral infarction without residual deficits; Z79.02 Long term (current) use of antithrombotics/antiplatelets; Z98.51 Tubal ligation status; Z79.84 Long term (current) use of oral hypoglycemic drugs; Z79.899 Other long term (current) drug therapy
CPT/HCPCS: 36415; 71045; 71250; 76937; 78452; 80048; 80053; 80061; 81001; 82043; 82533; 82570; 82607; 82947; 83540; 83605; 83735; 83880; 83930; 83935; 84100; 84145; 84156; 84443; 84484; 84550; 85025; 85044; 85347; 85610; 86140; 87040; 93017; 93306; 93458; 94760; A9500; C1725; C1893; C9600; J0360; J0461; J1644; J1650; J1720; J1815; J2001; J2250; J2785; J3010; J3475; J7030; J7040; Q9967

== ENCOUNTER 2022-10-19 23:47 | Emergency (ER) | payer OTHER ==
--- OUTSIDE RECORDS SUMMARY | 2022-10-19 23:53 | XMS REPORT | Continuity of Care Document ---
:1950 Author Organization [facility] t Address [address] [place] [address] Care Team Providers Name Role Phone ARIADNE SHEIKH Primary Care Physician Unavailable Ariadne Sheikh Attending Clinician Unavailable Manny Grey Attending Clinician Unavailable SADIQ HICKMAN Attending Clinician Unavailable JOSE PAIGE Attending Clinician Unavailable SIENNA WILSON Attending Clinician Unavailable Jonathon Valenzuela Attending Clinician Unavailable Rayne Ghosh Attending Clinician Unavailable UNKNOWN, ATTENDING Attending Clinician Unavailable Doctor Unassigned, [place] Attending Clinician Unavailable Vonda Bell Attending Clinician Unavailable ANDREA LOPES Attending Clinician Unavailable Andrea Lopes DO Attending Clinician Umair Bailey APN Attending Clinician UMAIR BAILEY Attending Clinician Unavailable GRECIA ESPINOSA Attending Clinician Unavailable Physician, No Primary or Family Admitting Clinician UnavailANYI Barnes Admitting Clinician Unavailable SIENNA WILSON Admitting Clinician Unavailable Jonathon Valenzuela Admitting Clinician Unavailable RAYNE GHOSH Admitting Clinician Unavailable Vonda Bell Admitting Clinician Unavailable Payers Payer Name Policy Type Policy Number Effective Date Expiration Date Adriana melendez [facility] WELLMED [id number] 2021 00:00:00 WELLMED/C DUAL [id number] 2021 COMP HMO D SNP 00:00:00 [employer] [place] [id number] 2014 [place] 00:00:00 [facility] MEDICARE C1 [id number] Common ADVANTAGE WELLMED [facility] MEDICARE C1 [id number] Common ADVANTAGE WELLMED Spirit [facility] AARP MEDICARE C1 [id number] Common ADVANTAGE WELLMED Spirit [facility] AMERIVANTAGE [id number] 2016 2020 00:00:00 00:00:00 Problems Condition Condition Condition Status Onset Resolution Last Treating Co mments Source Name Details Category Date Date Treatment Clinician Date Spinal Spinal Disease Active Univers stenosis, stenosis, 5-10 ity of lumbar lumbar 00:00: [place] region, region, 00 Medical without without Branch neurogenic neurogenic claudicati claudicati on on Peripheral Peripheral Problem [facility] vascular Spirit disease disease - [facility] Hyperlipid Hyperlipid Problem [facility] emia emia Spirit - [facility] 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 - [facility] diabetes diabetic mellitus polynrop [facility] Hypertensi Hypertensi Problem C ommon ve heart ve heart Spirit disease disease - [facility] with with St congestive congestive [facility] heart heart Medical failure failure Center Chronic Chronic Problem Common obstructiv obstructiv Sp lex e e - [facility] pulmonary pulmonary [facility] disease [facility] ([facility] Restless Restless Problem Commo n legs leg Spirit syndrome syndrome - [facility] [id number] 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 - [facility] with other skin [facility] complicati Medica l [facility] [id number] Fungal Problem Common toenail Spirit infection - [facility] [id number] 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 Allergies, Adverse Reactions, Alerts Allergy Allergy Status Severity Reaction(s) Onset Inactive Treating Comm ents Source Name Type Date Date Clinician Penicill DA Active U HIVES 2021-06 [facility] ins 1-10 Clear 00:00: [place] 00 [facility] bee DA Active SV HIVES 2021-06 [facility] venom 1-10 Clear protein 00:00: [facility] Penicill DA Active U HIVES 2021-06 [facility] ins 1-08 Clear 00:00: [place] 00 [facility] Penicill Propensi Active Itching Unive rs ins ty to 7-16 ity of adverse 00:00: [place] reaction 00 Medical s [place] Penicill Propensi Active Itching Unive rs ins ty to 7-16 ity of adverse 00:00: [place] reaction 00 Medical s [place] PENICILL Drug Active ITCHING Univers INS Class 7-16 ity of 00:00: [place] 00 [facility] bee DA Active SV HIVES [facility] venom 6-27 Clear protein 00:00: [place] (honey 00 [facility] No Known DA Active U 2020-06 [facility] Allergie 1-22 Clear s 00:00: [place] 00 [facility] NO KNOWN Drug Active Univers ALLERGIE Class ity of S [facility] Social History Social Habit Start Date Stop Date Quantity Comments Source History of Current Smoker Common Spi rit - Tobacco Use [facility] Sex Assigned At Common Sp lex - [facility] Exposure to 2021-12-08 2021-12-18 Not sure [facility] SARS-CoV-2 00:00:00 03:38:00 [facility] (event) Branch Alcohol intake 2021-12-18 2021-12-18 0 /d University of 00:00:00 00:00:00 [facility] Smoking Status Start Date Stop Date Source Current Smoker 2022-04-13 00:00:00 Common Spiri t - [facility] Occasional tobacco smoker 2016-08-15 00:00:00 Un iversity of [facility] Medications Ordered Filled Start Stop Current [...] by mouth ity of tablet 04:10: at [place] [address] bedtime. Medical Branch simvastatin Yes 40mg Take 40 mg Univers 40 mg 12-18 by mouth ity of tablet 04:10: at [place] 53 bedtime. Medical Branch FENTanyl PF 2021- [...] ity of tablet 00:00: MOUTH [place] 00 [id number] Medical YS,1 TAB Branch [id number] ,1/2 TAB [id number] ALPRAZolam Yes TAKE 1 Unive rs 0.5 [...] ity of tablet 00:00: MOUTH [place] 00 [id number] Medical YS,1 TAB Branch [id number] ,1/2 TAB [id number] simvastatin Yes TAKE 1 Univ ers 40 mg 2-22 TABLET BY ity of tablet 00:00: MOUTH AT [place] 00 BEDTIME Medical Branch rOPINIRole Yes TAKE 1 Unive rs 4 mg tablet 2-22 TABLET BY ity of 00:00: MOUTH AT [place] 00 BEDTIME Medical Branch traMADOL 50 Yes TAKE 1 Univ ers mg tablet 2-22 TABLET BY ity o f 00:00: MOUTH [place] 00 TWICE A Medical DAY Branch NEEDED FOR PAIN ALPRAZolam Yes TAKE 1 Unive rs 0.5 mg 2-22 TABLET BY ity of tablet 00:00: MOUTH [place] 00 TWICE A Medical DAY Branch NEEDED FOR ANXIETY hydroCHLORO Yes TAKE ONE Un william thiazide 2-22 CAPSULE BY ity o f 12.5 mg 00:00: MOUTH [place] capsule 00 EVERY Medical MORNING Branch lisinopril Yes 10mg Take 10 mg U nivers 10 mg 2-22 by mouth ity of tablet 00:00: daily. [place] 00 Medical Branch metoprolol Yes TAKE 1 Unive rs tartrate 2-22 TABLET BY ity of 100 mg 00:00: MOUTH [place] tablet 00 TWICE A Medical DAY Branch predniSONE Yes TAKE 1 Unive rs 20 mg 2-22 TABLET BY ity of tablet 00:00: MOUTH [place] 00 [id number] Medical YS,1 TAB Branch [id number] ,1/2 TAB [id number] cilostazol 2021- No TAKE 1 Univ ers 100 mg 2-22 -17 TABLET BY ity of tablet 00:00: 00:00 MOUTH [place] 00 :00 TWICE A Medical DAY Branch simvastatin 2021- No TAKE 1 Uni vers 40 mg 2-22 -17 TABLET BY ity of tablet 00:00: 00:00 MOUTH AT [place] 00 :00 BEDTIME Medical Branch rOPINIRole 2021- No TAKE 1 Univ ers 4 mg tablet 2-22 -17 TABLET BY it y of 00:00: 00:00 MOUTH AT [place] 00 :00 BEDTIME Medical Branch traMADOL 50 2021- No TAKE 1 Uni vers mg tablet 07-26 TABLET BY ity of 00:00: 00:00 MOUTH [place] 00 :00 TWICE A Medical DAY Branch NEEDED FOR PAIN clopidogrel Yes 75mg Take 75 mg Univers 75 mg 2-21 by mouth ity of tablet 00:00: daily. [place] Medical Branch metFORMIN Yes TAKE 1 Univer s 1,000 mg 2-21 TABLET BY ity of tablet 00:00: MOUTH [place] TWICE A Medical DAY Branch clopidogrel Yes 75mg Take 75 mg Univers 75 mg 2-21 by mouth ity of tablet 00:00: daily. [place] Medical Branch metFORMIN Yes TAKE 1 Univer s 1,000 mg 2-21 TABLET BY ity of tablet 00:00: MOUTH [place] TWICE A Medical DAY Branch clopidogrel Yes 75mg Take 75 mg Univers 75 mg 2-21 by mouth ity of tablet 00:00: daily. [place] [address] Medical Branch metFORMIN Yes TAKE 1 Univer s 1,000 mg 2-21 TABLET BY ity of tablet 00:00: MOUTH [place] [address] TWICE A Medical DAY Branch Flovent HFA Flovent HFA No 1{puff} BID [...] MG/0.3ML MG/0.3ML MG/0.3ML Flovent HFA Flovent HFA Flovent 44 MCG/ACT 44 MCG/ACT 04-12 HFA [...] Comments Source height 2022-01-12 08:20:00 56 [in_i] [facility] weight 2022-01-12 08:20:00 107.2 [lb_av] Common [place] [facility] temperature 2022-01-12 08:20:00 97.2 [degF] [facility] bmi 2022-01-12 08:20:00 24.03 kg/m2 [facility] oximetry 2022-01-12 08:20:00 97 % [facility] respiratory rate 2022-01-12 08:20:00 18 /min Comm on [place] [facility] blood pressure 2022-01-12 08:20:00 146 mm[Hg] Common [facility] blood pressure 2022-01-12 08:20:00 62 mm[Hg] Common Spirit - diastolic [facility] Body temperature 2021-12-18 08:45:42 37.44 Giovanna Univ ersity of [place] Medical Branch Systolic blood 2021-12-18 08:39:00 143 mm[Hg] Univer sity of pressure [place] [facility] Diastolic blood 2021-12-18 08:39:00 90 mm[Hg] Unive rsity of pressure [facility] Heart rate 2021-12-18 08:39:00 114 /min Universi ty of [place] Medical Branch Respiratory rate 2021-12-18 08:39:00 20 /min Univ ersity of [facility] Branch Body height 2021-12-18 08:39:00 149.9 cm Universi ty of [place] Medical [place] Body weight 2021-12-18 08:39:00 48.988 kg Universi ty of [place] Medical [place] BMI 2021-12-18 08:39:00 21.81 kg/m2 Universi ty of [facility] Oxygen saturation in 2021-12-18 08:39:00 93 /min University of Arterial blood by [facility] [place] [facility] Pulse oximetry Branch Systolic blood 2021-12-18 03:00:00 140 mm[Hg] Univer sity of pressure [facility] Branch Diastolic blood 2021-12-18 03:00:00 90 mm[Hg] Unive rsity of pressure [facility] Heart rate 2021-12-18 03:00:00 99 /min Universi ty of [facility] Respiratory rate 2021-12-18 03:00:00 26 /min Univ ersity of [facility] Oxygen saturation in 2021-12-18 03:00:00 98 /min University of Arterial blood by [facility] [place] [facility] Pulse oximetry Branch Body temperature 2021-12-18 02:23:00 37.5 Giovanna Univ ersity of [facility] Branch Body height 2021-12-18 02:23:00 149.9 cm Universi ty of [place] [facility] Branch Body weight 2021-12-18 02:23:00 48.988 kg Universi ty of [place] [facility] BMI 2021-12-18 02:23:00 21.81 kg/m2 Universi ty of [place] Medical Branch height 2021-10-06 09:40:00 56 [in_i] Common S pirit - [facility] weight 2021-10-06 09:40:00 108.4 [lb_av] Common Spirit - [facility] temperature 2021-10-06 09:40:00 97.9 [degF] [facility] bmi 2021-10-06 09:40:00 24.3 kg/m2 Common S pirit [facility] oximetry 2021-10-06 09:40:00 94 % Common S pirit [facility] respiratory rate 2021-10-06 09:40:00 16 /min Comm on Spirit - [facility] blood pressure 2021-10-06 09:40:00 139 mm[Hg] Common Spirit - systolic [facility] blood pressure 2021-10-06 09:40:00 70 mm[Hg] Common Spirit - diastolic [facility] height 2021-04-19 09:00:00 56 [in_i] Common [facility] weight 2021-04-19 09:00:00 113.5 [lb_av] Common [place] [facility] temperature 2021-04-19 09:00:00 97.5 [degF] Common [facility] bmi 2021-04-19 09:00:00 25.44 kg/m2 [facility] S [facility] oximetry 2021-04-19 09:00:00 92 % [facility] 2021-04-19 09:00:00 128 mm[Hg] Common Spirit - systolic [facility] blood pressure 2021-04-19 09:00:00 86 mm[Hg] Common Spirit - diastolic [facility] height 2021-01-27 13:20:00 56 [in_i] Common S pirit [facility] weight 2021-01-27 13:20:00 117 [lb_av] Common [facility] temperature 2021-01-27 13:20:00 97.4 [degF] Common S pirit [facility] bmi 2021-01-27 13:20:00 26.23 kg/m2 Common S pirit [facility] oximetry 2021-01-27 13:20:00 93 % Common S pirit [facility] respiratory rate 2021-01-27 13:20:00 18 /min Comm on [place] [facility] blood pressure 2021-01-27 13:20:00 117 mm[Hg] Common Spirit - systolic [facility] blood pressure 2021-01-27 13:20:00 52 mm[Hg] Common [facility] - diastolic [facility] Procedures Procedure Date / Time Performing Clinician Source Performed [id number] 2022-06-12 00:00:00 KARZE [facility] [id number] 2022-06-12 00:00:00 KARZE [facility] [id number] 2022-06-12 00:00:00 KARZE [facility] NON-UTMB ORDERS 2022-05-30 06:01:00 Doctor Unassigned, No Univer sit of [facility] Medical Branch [id number] 2022-04-14 00:00:00 CHEZU [facility] [id number] 2022-04-14 00:00:00 CHEZU [facility] [id number] 2022-04-14 00:00:00 CHEZU [facility] [id number] 2022-04-14 00:00:00 CHEZU [facility] [id number] 2022-04-14 00:00:00 CHEZU [facility] [id number] 2022-04-14 00:00:00 CHEZU [facility] [id number] 2022-04-14 00:00:00 CHEZU [facility] [id number] 2022-04-14 00:00:00 CHEZU [facility] [id number] 2022-04-12 00:00:00 RASSA [facility] CONSENT/REFUSAL FOR 2021-12-18 08:36:35 Doctor Unassigned, No Un iversity of [place] DIAGNOSIS AND TREATMENT [facility] Branch COMP. METABOLIC PANEL 2021-12-18 03:08:[address] [facility] ([id number]) Medical [place] CBC WITH DIFF 2021-12-18 03:08:00 Umair Bailey [facility] COVID-19 (ID NOW RAPID 2021-12-18 03:08:00 Umair Bailey [facility] TESTING) Medical [place] URINE DRUG (IMMUNOASSAY) 2021-12-18 02:39:00 [facility] Medical Bra nch SCREEN URINALYSIS 2021-12-18 02:39:00 Umair Bailey [facility] NOTICE OF PRIVACY 2021-12-18 02:08:20 Doctor Unassigned, No [facility] PRACTICES Name Medical Branch CONSENT/REFUSAL FOR 2021-12-18 02:07:28 Doctor Unassigned, No [facility] Name [facility] Encounters Start End Encounter Admission Attending Care Care Encounter Source Date/Time Date/Time Type Type Clinicians Facility Department ID 2022-07-11 Outpatient [facility] [id number] [place] 13:29:52 [id number] Health 2022-04-12 Outpatient [place], STLMLC STLMLC [id number] Common 10:10:01 Ariadne [place] [facility] 2022-01-04 Outpatient [place], STLMLC STLMLC [id number] Common 07:52:00 Ariadne [facility] 2021-11-30 Inpatient EL Raslan, HCACL HCACL [id number] [facility] 13:00:00 Manny [id number] [facility] 2021-10-04 Outpatient [place], STLMLC STLMLC [id number] Common 09:48:03 Ariadne [facility] 2021-07-15 Outpatient [place], STLMLC STLMLC [id number] Common 08:00:02 Ariadne [facility] 2021-06-29 Outpatient [place], STLMLC STLMLC [id number] Common 13:43:19 Ariadne [facility] 2022-06-27 2022-07-02 Inpatient Jorje HICKMAN, [facility] MED [id number] [facility] 21:14:00 12:20:00 SADIQ 2022-06-30 2022-06-30 Outpatient ALDA [facility] [id number] [place] 08:30:00 08:30:00 JOSE Espana th 2022-06-27 2022-06-27 Outpatient KATIE, [facility] MARI [id number] [facility] 18:16:00 23:59:00 SIENNA 2022-06-10 2022-06-12 Inpatient EM Nicolas, HCACL INTE.02 [id number] [facility] 18:52:00 17:47:00 Jonathon 95 [facility] 2022-06-06 2022-06-06 Outpatient CORRINE Ghosh, HCACL DAYS [id number] [facility] 08:00:00 08:01:00 Rayne 92 [facility] 2022-05-31 2022-05-31 Outpatient R UNKNOWN, [facility] [id number] Univers 10:20:30 23:59:00 ATTENDING ity of [facility] 2022-05-30 2022-05-30 Orders Doctor NATE [id number] Univers 00:00:00 00:00:00 Only Unassigned, LUPILLO [id number] ity of [place] [facility] [id number] Je as [id number] [address] 2022-05-23 2022-05-23 [facility]TEL[facility] [id number] Co mmon 00:00:00 00:00:00 Spirit - [facility] 2022-04-14 2022-04-15 Inpatient Vonda Salas HCACL INTE.02 [id number] [facility] 08:50:00 14:05:00 05 [facility] 2022-01-12 2022-01-12 OFFICE STLMLC STLC [id number] Co mmon 00:00:00 00:00:00 VISIT Yan ESTAB PT - CHI LEVEL 4 [facility] 2022-01-04 2022-01-04 (TEL) STLC STLC [id number] Co mmon 00:00:00 00:00:00 Spirit - [facility] 2021-12-18 2021-12-18 Emergency X [facility] ERT [id number] Univers 03:37:00 04:23:00 ANDREA loving [facility] 2021-12-18 2021-12-18 Emergency [facility] [id number] Univers 03:37:00 04:23:00 Andrea SANDHU [id number] i ty of [place] [id number] [facility] [id number] [address] 2021-12-17 2021-12-17 [facility] [id number] Univers 21:28:00 23:30:00 Umair SANDHU [id number] ity [facility] [id number] [facility] [id number] [address] 2021-12-17 2021-12-17 Emergency [facility] [id number] Univers 21:28:00 23:30:00 UMAIR loving [facility] 2021-11-30 2021-11-30 Outpatient MELODY Champion OUTD [id number] [facility] 05:11:00 05:11:00 Manny 13 [facility] 2021-11-27 2021-11-27 (TEL) STLMLC STLMLC [id number] Co mmon 00:00:00 00:00:00 Spirit - [facility] 2021-10-06 2021-10-06 OFFICE STLMLC STLMLC [id number] Co mmon 00:00:00 00:00:00 VISIT Spirit ESTAB PT - CHI LEVEL 4 [facility] 2021-04-26 2021-04-26 Inpatient RONALD HouseCL DAYS [id number] [facility] 05:15:00 05:15:00 Rayne 37 [facility] 2021-04-19 2021-04-19 OFFICE STLMLC STLMLC [id number] Co mmon 00:00:00 00:00:00 VISIT Spirit ESTAB PT - CHI LEVEL 4 [facility] 2021-04-11 2021-04-11 (TEL) STLMLC STLMLC [id number] Co mmon 00:00:00 00:00:00 Spirit - [facility] 2021-01-27 2021-01-27 OFFICE STLMLC STLMLC [id number] Co mmon 00:00:00 00:00:00 VISIT NEW Spir it PT LEVEL 4 - [facility] 2020-01-23 2020-01-23 Outpatient GRECIA FOWLER [facility] [id number] Univers 13:00:00 13:00:00 ity [facility] 2019-12-04 2019-12-04 Orders Doctor NATE [id number] 00:00:00 00:00:00 Only Unassigned, [place]PI[place] 350.1.13.10 [place] [facility] 4.2.7.2.686 [id number] Results Test Description Test Time Test Comments Results Result Comments Source GLUCOSE BEDSIDE 2022-06-12 16:47:00 Test Item Value Reference Range Interpretation Comme nts GLUCOSE BEDSIDE (test code = 100 MG/DL 70-110 N Performed by certified 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 [facility]) [facility] GLUCOSE [id number] 13:58:00 Test Item Value Reference Range Interpretation Comments GLUCOSE BEDSIDE (test 86 MG/DL 70-110 N Perfor med by certified code = GLUBED) 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 [facility] GLUCOSE [id number] 11:50:00 Test Item Value Reference Range Interpretation Comments GLUCOSE BEDSIDE (test 81 MG/DL 70-110 N Perfor med by certified code = GLUBED) 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 [facility] GLUCOSE [id number] 08:16:00 Test Item Value Reference Range Interpretation Comments GLUCOSE BEDSIDE (test 86 MG/DL 70-110 N Perfor med by certified code = GLUBED) 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 [facility] CBC W/O [id number] 05:37:00 Test Item Value Reference Range Interpretation [...] fL 7.0-9.0 H = MPV) BASIC METABOLIC [id number] 05:21:00 Test Item Value Reference Range Interpretation [...] = 8.4 mg/dL 8.0-10.5 N CA) GLUCOSE [id number] 23:44:00 Test Item Value Reference Range Interpretation Comments GLUCOSE BEDSIDE (test 142 MG/DL 70-110 H Perfor med by certified code = GLUBED) 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 [facility] GLUCOSE [id number] 22:14:00 Test Item Value Reference Range Interpretation Comments GLUCOSE BEDSIDE (test 45 MG/DL 70-110 L Perfor med by certified code = GLUBED) 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 [facility] GLUCOSE [id number] 17:05:00 Test Item Value Reference Range Interpretation Comments GLUCOSE BEDSIDE (test 95 MG/DL 70-110 N Perfor med by certified code = GLUBED) 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 [facility] GLUCOSE [id number] 09:26:00 Test Item Value Reference Range Interpretation Comments GLUCOSE BEDSIDE (test 108 MG/DL 70-110 N Perfor med by certified code = GLUBED) 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 [facility] TROP-I HIGH [id number] 03:07:00 Test Item Value Reference Range Interpretation Comments TROP-I HIGH 593 ng/L 0-34 HH CAUTION: Units of the SENSITIVITY (test current te st methodology code = TROPIHS) (ng/L) diffe rfrom the prior test meth odology (ng/mL) by a fa ctor of 1000. 99t h Percentile Uppe r Reference Limit (URL): Fe males: 34 ng/LMales: 54 n g/L In order to distin [facility] acute elevations of h igh sensitivitytrop [...] URLs mayvar y by method. TROP-I HIGH [id number] 23:53:00 Test Item Value Reference Range Interpretation [...] URL. These resu lts were obtained using [employer]ella[employer] IM TnI Hreagent. Results from di fferent methodologies s hould not becompared to o ne another as quantitative results and URLs mayvar y by method. GLUCOSE [id number] 23:32:00 Test Item Value Reference Range Interpretation Comments GLUCOSE BEDSIDE (test 158 MG/DL 70-110 H Perfor med by certified code = GLUBED) 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 [facility] LIPOPROTEIN [id number] 18:26:00 Test Item Value Reference Range Interpretation Comments LIPOPROTEIN LDL 50.8 mg/dL 0-100 N <100 OPTIMAL 100-129 NEAR (test code = LDL) OPTIMAL/AB OVE [id number] HIGH>FD=925 RONDA Y HIGH*Guidelines provided by the National Cholesterol EducationProgra m Adult Treatment Panel III PROTHROMBIN [id number] 18:14:00 Test Item Value Reference Range Interpretation [...] (to prevent recurrent infar ct). THROMBOPLASTIN TIME [id number] 18:14:00 Test Item Value Reference Range Interpretation Comments THROMBOPLASTIN TIME 29.0 Seconds 25.0-39.5 N Therape utic Range: PARTIAL (test code = 50.4 - 88.3 Seconds PTT) Effective 09/17/2018 BASIC METABOLIC [id number] 18:11:00 Test Item Value Reference Range Interpretation [...] 8.2 mg/dL 8.0-10.5 N CA) TROP-I HIGH [id number] 18:11:00 Test Item Value Reference Range Interpretation [...] URLs mayvar y by method. CBC W/AUTO [id number] 17:43:00 Test Item Value Reference Range Interpretation [...] NO = MDIFF) - XR CHEST 1 [id number] 00:00:00 [place] [facility] MANJIT NESS : 1950 Sex: F FAX: Ariadne Sheikh Sarah [phone] [place]: St: [facility] FAX: John Saavedra MD FAX: Elena Trent APR [phone] Name: MILLERMANJIT Dana [facility] : 1950 Age/S: 72/F [address] [place] [address] Unit #: [id number] Loc: [place] [address] Phys: Elena Trent APRNNP Acct: [id number] Dis Date: Status: [facility] ER PHONE #: [phone] Exam Date: 06/10/2022 1710 FAX #: [phone] Reason: anemia? 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 LEVEL LENA 59485 (Continued) The peak systolic velocity is 118 [...] (1919) Mary medel: PAGE 2 Signed ReportGLUCOSE [id number] 17:49:00 Test Item Value Reference Range Interpretation Comments GLUCOSE BEDSIDE (test 148 MG/DL 70-110 H Perfor med by certified code = GLUBED) 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 [facility] BASIC METABOLIC [id number] 12:21:00 Test Item Value Reference Range Interpretation [...] the recommended for lucila for GFRby the [facility] on for Adults.The GFR will not calculate if th e sex is unknown or if thepatient's ag e is <18 years. CREATININE (test 1.0 mg/dL 0.6-1.3 N code = CREAT) CALCIUM (test code = 8.6 mg/dL 8.0-10.5 N CA) CBC W/AUTO [id number] 12:16:00 Test Item Value Reference Range Interpretation [...] REQUIRED (test code NO = MDIFF) RBC [id number] 12:16:00 Test Item Value Reference Range Interpretation Comments ANISOCYTOSIS (test code = ANISO) 3+ POLYCHROMASIA (test code = POLC) 1+ HYPOCHROMIA (test code = HYPO) 2+ POIKILOCYTOSIS (test code = POIK) 1+ MICROCYTOSIS (test code = MICR) 2+ MACROCYTOSIS (test code = MACR) 2+ SCHISTOCYTES (test code = SERENITY) FEW PROTHROMBIN [id number] 12:05:00 Test Item Value Reference Range Interpretation [...] Infarction (to prevent recurrent infar ct). GLUCOSE [id number] 11:41:00 Test Item Value Reference Range Interpretation Comments GLUCOSE BEDSIDE (test 86 MG/DL 70-110 N Perfor med by certified code = GLUBED) 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 [facility] - XR CHEST 1 [id number] 00:00:00 [facility] : 1950 Sex: F FAX: Rayne Miranda [phone] [place]: St: PRE Name: MANJIT NESS [facility] : 1950 Age/S: 72/F [address] [place] [address] Unit #: [id number] Loc: [place] [address] Phys: Rayne Ghosh MD Acct: [id number] Dis Date: Status: PRE SDC PHONE #: [phone] Exam Date: 06/06/20221125 FAX #: 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 [facility] GLUCOSE [id number] 08:15:00 Test Item Value Reference Range Interpretation Comments GLUCOSE BEDSIDE (test 156 MG/DL 70-110 H Perfor med by certified code = GLUBED) 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 [facility] GLUCOSE [id number] 21:25:00 Test Item Value Reference Range Interpretation Comments GLUCOSE BEDSIDE (test 119 MG/DL 70-110 H Perfor med by certified code = GLUBED) 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 [facility] GLUCOSE [id number] 18:45:00 Test Item Value Reference Range Interpretation Comments GLUCOSE BEDSIDE (test 103 MG/DL 70-110 N Perfor med by certified code = GLUBED) 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 [facility] GLUCOSE [id number] 12:35:00 Test Item Value Reference Range Interpretation Comments GLUCOSE BEDSIDE (test 86 MG/DL 70-110 N Perfor med by certified code = GLUBED) 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 [facility] GLUCOSE [id number] 15:55:00 Test Item Value Reference Range Interpretation Comments GLUCOSE BEDSIDE (test 83 MG/DL 70-110 N Perfor med by certified code = GLUBED) 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 [facility] GLUCOSE [id number] 11:17:00 Test Item Value Reference Range Interpretation Comments GLUCOSE BEDSIDE (test 85 MG/DL 70-110 N Perfor med by certified code = GLUBED) 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 [facility] COAGULATION TIME [id number] 08:28:00 Test Item Value Reference Range Interpretation Comments COAGULATION TIME 224 SECONDS Performed b y ACTIVATED (test code = certi fied 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 ACT) at [facility] GLUCOSE [id number] 08:19:00 Test Item Value Reference Range Interpretation Comments GLUCOSE BEDSIDE (test 143 MG/DL 70-110 H Perfor med by certified code = GLUBED) 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 [facility] GLUCOSE [id number] 07:50:00 Test Item Value Reference Range Interpretation Comments GLUCOSE BEDSIDE (test 90 MG/DL 70-110 N Perfor med by certified code = GLUBED) 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 [facility] GLUCOSE [id number] 02:22:00 Test Item Value Reference Range Interpretation Comments GLUCOSE BEDSIDE (test 143 MG/DL 70-110 H Perfor med by certified code = GLUBED) 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 [facility] GLUCOSE [id number] 02:19:00 Test Item Value Reference Range Interpretation Comments GLUCOSE BEDSIDE (test 171 MG/DL 70-110 H Perfor med by certified code = GLUBED) 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 [facility] GLUCOSE [id number] 02:18:00 Test Item Value Reference Range Interpretation Comments GLUCOSE BEDSIDE (test 161 MG/DL 70-110 H Perfor med by certified code = GLUBED) 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 [facility] [id number] 02:17:00 Test Item Value Reference Range Interpretation Comments ACT-ISTAT (test code 225 SEC 74-137 H Perform ed by certified = ACTI) 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 [facility] GLUCOSE [id number] 07:28:00 Test Item Value Reference Range Interpretation Comments GLUCOSE BEDSIDE (test 111 MG/DL 70-110 H Perfor med by certified code = GLUBED) 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 [facility] CBC W/AUTO [id number] 14:31:00 Test Item Value Reference Range Interpretation [...] REQUIRED (test code NO = MDIFF) RBC [id number] 14:31:00 Test Item Value Reference Range Interpretation Comments ANISOCYTOSIS (test code = ANISO) 2+ MICROCYTOSIS (test code = MICR) 2+ MACROCYTOSIS (test code = MACR) 1+ TARGET CELLS (test code = TGT) 1+ ELLIPTOCYTES (test code = ELL) FEW SCHISTOCYTES (test code = SERENITY) FEW BASIC METABOLIC [id number] 12:02:00 Test Item Value Reference Range Interpretation [...] = 8.5 mg/dL 8.0-10.5 N CA) PROTHROMBIN [id number] 11:59:00 Test Item Value Reference Range Interpretation [...] recurrent infar ct). - XR CHEST 2 [id number] 00:00:00 [facility] : 1950 Sex: F FAX: Manny Gonzalez MD [phone] [place]: St: PRE Name: MANJIT NESS [facility] : 1950 Age/S: 72/F [address] [place] [address] Unit #: [id number] Loc: [place] [address] Phys: Manny Grye MD Acct: [id number] Dis Date: Status: PRE [facility] PHONE #: [phone] Exam Date: 04/11/2022 1127 FAX #: [phone] Reason: PRE OP EXAMS: CPT CODE: [id number] XR CHEST 2 V 69040 PROCEDURE INFORMATION: Exam: XR ChestExam date and [...] MD Technologist: RT Babar(R) Trnscrd Date/Time/By: 04/11/2022 (2406) : B y: [id number].SDR.[email or web address] Orig Print D/T: S: 04/11/2022 (0466) PAGE 1 Signed ReportCOMP. METABOLIC PANEL (72031)2021-12-18 03:31:59 Test Item Value Reference Range Interpretation Comments NA (test code = 134 mmol/L 135-145 L 9864365196) K (test code = 4.5 mmol/L 3.5-5 8228538717) CL (test code = 98 mmol/L 98-108 4188096064) CO2 TOTAL (test code = 25 mmol/L 23-31 3457436653) AGAP (test code = 2-16 4694252807) BUN (test code = 20 mg/dL 7-23 0879083898) GLUCOSE (test code = 133 mg/dL 70-110 H 9832531340) CREATININE (test code = 1.04 mg/dL 0.5-1.04 2426709552) TOTAL BILI (test code = 0.4 mg/dL 0.1-1.7 5698481632) CALCIUM (test code = 8.6 mg/dL 8.6-10.6 7556258514) T PROTEIN (test code = 6.7 g/dL 6.3-8.2 3610512365) ALBUMIN (test code = 4.0 g/dL 3.5-5 3193080183) ALK PHOS (test code = 153 U/L 34-122 H 0867038014) ALTv (test code = 78 U/L 5-35 H 1742-6) AST(SGOT) (test code = 27 U/L 13-40 1248248760) eGFR (test code = mL/min/1.73m2 1105603303) KARIS (test code = KARIS) Association of [...] tests). Lab Interpretation Abnormal (test code = 18139-9) [facility] WITH [id number] 03:16:01 Test Item Value Reference Range Interpretation Comments WBC (test code = See_Comment [Automated 3483-2) message] The sy stem which generated this result transmitted reference range : 4.30 - 11.10 10*3/?L. The reference range was not used to interpret this result as normal/abnormal . RBC (test code = See_Comment L [Automated 020-8) message] The sy stem which generated this [...] RDW-SD (test code = 46.9 fL 39-49.9 79991-3) RDW-CV (test code = 18.9 % 12-15.5 H 788-0) PLT (test code = See_Comment H [Automated 777-3) message] The sy stem which generated this result transmitted reference range : 166 - 358 10*3/ ?L. The reference r claudy was not used to interpret this result as normal/abnormal . MPV (test code = 9.2 fL 9.5-12.9 L 78388-0) NRBC/100 WBC (test See_Comment [Automat ed code = 7881904586) message] The system which generated this result transmitted reference range : 0.0 - 10.0 /100 WBCs. The refer ence range was not u sed to interpret th is result as normal/abnormal . NRBC x10^3 (test code See_Comment [Auto mated = 4606405135) message] The s ystem which generated this result transmitted reference range : 10*3/?L. The reference range was not used to interpret this result as normal/abnormal . GRAN MAT (NEUT) % 67.5 % (test code = 770-8) IMM GRAN % (test code 0.40 % = 0339041525) LYMPH % (test code = 19.1 % 736-9) MONO % (test code = 11.0 % 5905-5) EOS % (test code = 1.3 % 713-8) BASO % (test code = 0.7 % 706-2) GRAN MAT x10^3(ANC) 6.97 10*3/uL 1.88-7.09 (test code = 8450679796) IMM GRAN x10^3 (test 0.04 10*3/uL 0-0.06 code = 5749681384) LYMPH x10^3 (test code 1.97 10*3/uL 1.32-3.29 = 731-0) MONO x10^3 (test code 1.13 10*3/uL 0.33-0.92 H = 742-7) EOS x10^3 (test code = 0.13 10*3/uL 0.03-0.39 711-2) BASO x10^3 (test code 0.07 10*3/uL 0.01-0.07 = 704-7) Lab Interpretation Abnormal (test code = 41969-2) [id number] 11:11:00 Test Item Value Reference Range Interpretation Comments ACT-ISTAT (test code 196 SEC 74-137 H Perform ed by certified = ACTI) 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 [facility] CBC W/AUTO [id number] 17:02:00 Test Item Value Reference Range Interpretation [...] REQUIRED (test code NO = MDIFF) RBC [id number] 17:02:00 Test Item Value Reference Range Interpretation Comments ANISOCYTOSIS (test code = ANISO) 1+ POLYCHROMASIA (test code = POLC) SLIGHT POIKILOCYTOSIS (test code = POIK) 2+ MICROCYTOSIS (test code = MICR) 1+ TARGET CELLS (test code = TGT) RARE ELLIPTOCYTES (test code = ELL) 2+ ACANTHOCYTES (test code = ACAN) FEW NONE SCHISTOCYTES (test code = SERENITY) FEW BASIC METABOLIC [id number] 16:01:00 Test Item Value Reference Range Interpretation [...] = 8.5 mg/dL 8.0-10.5 N CA) PROTHROMBIN [id number] 15:56:00 Test Item Value Reference Range Interpretation [...] recurrent infar ct). - XR CHEST 2 [id number] 00:00:00 [facility] NESSMANJIT Dana : 1950 Sex: F FAX: Manny Gonzalez MD [phone] [place]: St: PRE Name: MILLERMANJIT [facility] : 1950 Age/S: 71/F [address] [place] [address] Blvd Unit #: [id number] Loc: [place] [address] Phys: Manny Grey MD Acct: [id number] Dis Date: Status: PRE SDC PHONE #: [phone] Exam Date: 11/28/20211512 FAX #: [phone] Reason: PREOP EXAMS: CPT CODE: [id number] XR CHEST 2 V 72616 PROCEDURE INFORMATION: Exam: XR ChestExam date and [...] MD Technologist: RT Eder(R) Trnscrd Date/Time/By: 11/28/2021 (0892) : By: [email or web address] Orig Print D/T: S: 11/28/2021 (3302) PAGE 1 Signed ReportGLUCOSE [id number] 16:22:00 Test Item Value Reference Range Interpretation Comments GLUCOSE BEDSIDE (test 138 MG/DL 70-110 H Perfor med by certified code = GLUBED) 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 [facility] GLUCOSE [id number] 13:25:00 Test Item Value Reference Range Interpretation Comments GLUCOSE BEDSIDE (test 88 MG/DL 70-110 N Perfor med by certified code = GLUBED) 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 CBC W/AUTO [id number] 09:10:00 Test Item Value Reference Range Interpretation [...] x10 3/uL 0.0-0.1 N NRBC#) BASIC METABOLIC [id number] 08:30:00 Test Item Value Reference Range Interpretation [...] = 9.0 mg/dL 8.0-10.5 N CA) PROTHROMBIN [id number] 08:23:00 Test Item Value Reference Range Interpretation [...] (to prevent recurrent infar ct). THROMBOPLASTIN TIME [id number] 08:23:00 Test Item Value Reference Range Interpretation Comments THROMBOPLASTIN TIME 30.6 Seconds 25.0-39.5 N Therape utic Range: PARTIAL (test code = 50.4 - 88.3 Seconds PTT) Effective 09/17/2018 - XR CHEST 2 [id number] 00:00:00 [facility] : 1950 Sex: F FAX: Rayne Miranda [phone] [place]: St: PRE FAX: Gillian Donato Name: MANJIT NESS [facility] :1950 Age/S: 71/F [address] [place] [address] Unit #: [id number] Loc: [place] [address] Phys:Gillian Donato [facility] Acct: [id number] Dis Date: Status: PRE [facility] PHONE #: [phone] Exam Date: 04/25/2021 0948 FAX #: [phone] Reason: PREOP EXAMS: CPT CODE: [id number] XR CHEST 2 V 15454 PROCEDURE INFORMATION: Exam: XR Chest Exam date [...] Ghosh MD; Gillian Donato NP Technologist: RT Samanta(R) Trnscrd Date/Time/By: 04/25/2021 (408): By: [email or web address] Orig Print D/T: S: 04/25/2021 (933) PAGE 1 Signed Report Notes Date/Time Note Provider Source 2022-06-12 16:48:00-00:[address] [facility] [place] [place] Discharge Summary REPORT#:[id number] REPORT STATUS: Signed DATE:06/12/22 TIME: 1647 PATIENT: MANJIT NESS UNIT #: [id number] ROOM/BED: [place] [address] : [birth year] AGE: 72 SEX: F ATTEND: Erica Valenzuela od, MD ADM AUTHOR: Bryant Zheng [facility] * ALL edits or amendments must be made on the Circular/computer document * Bryant Zheng 06/12/22 1648: PCP PCP PCP: PCP: Ariadne Sheikh NP Discharge to: home General Information Date of admission: Observation Start Date: Date of admission: 06/10/22 Discharge date: 06/12/22 Discharge diagnosis: - Severe Left LE PVD. - Left LE pain due to Severe PVD. - Elevated Troponin due to Demand Ischemia. - Acute on chroninc Blood Loss Anemia. - HX of HTN, HLD, DM, CVA, PAD. - Smoker. Hospital course: 72-year-old female with PMH of HTN, HLD, DM, CVA , PAD who is status post LLE angiogram with stenting that occurred on 06/06/2022 presents to the ER with chief complaint of BLE pain. Her Arterial doppler stud y showed severe PVD. She was also found to have Acute on chroninc Blood Loss Anemia. Her Elevated troponin due to demand ishcemia. 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 She received blood tranfusion. She is now stable. Hgb is stable. She will go ho me today. Pt. condition on discharge: improved, stable Allergies: Allergies: bee venom protein (honey bee) (Coded, Severe, HI VES, 04/13/22) Penicillins (Coded, HIVES, 04/13/22) Med Rec Med Rec Discharge meds: Continue taking these medications: metFORMIN (GLUCOPHAGE) (Unknown Strength) TAB 1,000 MILLIGRAM ORAL TWICE DAILY. CLOPIDOGREL (PLAVIX) 75 MG TAB 75 MILLIGRAM ORAL DAILY. rOPINIRole (REQUIP) 2 MG TAB 4 MILLIGRAM ORAL TWICE DAILY. LISINOPRIL (ZESTRIL) 10 MG TAB 10 MILLIGRAM ORAL DAILY. ATORVASTATIN (LIPITOR) 40 MG TAB 40 MILLIGRAM ORAL DAILY. hydrOXYzine HCL (ATARAX) 25 MG TAB 25 MILLIGRAM ORAL EVERY 6 HOURS. as needed for ALLERGIES RIVAROXABAN (XARELTO) 15 MG TAB 15 MILLIGRAM ORAL DAILY. ALBUTEROL (PROVENTIL HFA 90 MCG/ACT 6.7 GM) 90 M CG INHALER 1 PUFF INHALATION RT - EVERY 4 HOURS NEEDED. as needed for COPD ALBUTEROL (ALBUTEROL 2.5 MG/3 ML (75mL)) 2.5 MG/ 3 ML (0.083 %) NEB 2.5 MILLIGRAM NEB RT - EVERY 4 HOURS NEEDED. as needed for WHEEZING Start taking the following new medications: PANTOPRAZOLE DR (PROTONIX) 40 MG TAB.DR 40 MILLIGRAM ORAL DAILY. Qty = 30 No Refills Discharge Instructions PCP )( Discharge to: Home/Self Care Discharge Instructions Additional Discharge Routines: PCP Follow-Up, Co nsultant Follow-Up )( Diet: Cardiac )( Activity: Resume Normal Activity, As Tolerate d Follow-up Appointments PCP follow up: PCP: Ariadne Sheikh [facility] PCP follow up timeframe: In 2-3 weeks Consulting provider 1: Provider 1: Rayne Ghosh MD Specialty: Vascular Surgery Consult follow up timeframe: In 2-3 weeks Consulting provider 2: Provider 2: Ye Sanches MD Specialty: Gastroenterology Follow up timeframe: In 2-3 weeks Jonathon Valenzuela 06/13/22 1822: Attestations Physician Attestation Agree w/findings plan: Patient seen and examined, I agree with the findings and plans as documented by Bryant Zheng NP Electronically Signed by Bryant Zheng NP on 03/26 at 1256 Electronically Signed by Jonathon Valenzuela MD on 0 06/13/22 at 1827 RPT #:[id number] END OF REPORT 2022-06-12 14:07:00-00:00 [id number] [place] [address] PATIENT NAME: MANJIT NESS ADMIT DATE: 3 ACCOUNT NO: [id number] ROOM NO: [facility] AGE: 72 REPORT TYPE: eECHOCARDIOGRAM REPORT SEX: F ADMITTING PHYSICIAN:Jonathon Valenzuela MD ATTENDING PHYSICIAN:Jonathon Valenzuela MD *[place] [address] Transthoracic Echocardiogram Patient: Manjit Ness Study Date: 06/12/2022 BP: 117 / 68 Location: [facility] URN: [id number] : 1950 Age: 72 Height: 49 in / 124.5 cm Gender: F Weight: 99. 8 lb / 45.4 kg BMI/BSA: 29.3 kg/m 2 / 1.28 m 2 *Ordering Physician: * Reba Rodriges *Interpreting Physician: * Whit Villareal MD *Weight Loss Sales Consultant: * Aileen Guthrie Indications: Elevated troponin. Study data: Transthoracic echocardiogram. Proced ure: Transthoracic echocardiography was performed. Image quality wa s adequate. Complete 2D, complete spectral Doppler, and color Doppler . Location: Emergency department. Patient status: Inpatient. Patient r oom number: bay 27. Study status: Routine. Rhythm: Bradycardia. Findings Left ventricle: The cavity size is normal. Wall thickness is normal. Systolic function is normal. The estimated eject ion fraction is 55-59%. Wall motion is normal; there are no regional wal l motion abnormalities. Left ventricular diastolic function parameters a re normal for the patient's age. Right ventricle: Estimated TAPSE is 2.4 cm. The cavity size is normal. PATIENT NAME: MANJIT NESS 4095 Systolic function is normal. Systolic pressure i s within the normal range. Left atrium: The atrium is dilated. Right atrium: The atrium is normal in size. Aorta: Aortic root: The aortic root is normal in size. Aortic valve: The valve is structurally normal. The valve is trileaflet. There is no evidence of stenosis. Th ere is no regurgitation. Mitral valve: The valve is structurally normal. There is no evidence of stenosis. There is mild regurgitatio n. Tricuspid valve: Estimated right ventricular sys tolic pressure is 29 mmHg. The valve is structurally normal. There is mild regurgitation. Pulmonic valve: The valve is structurally normal . There is no regurgitation. Pericardium: There is no pericardial effusion. Pulmonary arteries: The main pulmonary artery is normal-sized. Systemic veins: Inferior vena cava: The vessel is normal in size . The respirophasic diameter changes are in the normal range (= 50%) . Measurements Left ventricle Value Ref NICOLETTE, LAX 3.8 cm 3.8 - 5.2 ESD, LAX 4.0 cm 2.2 - 3.5 ESD/bsa, LAX 3.1 cm/m 2 1.3 - 2.1 FS, LAX -4 % 27 - 45 ESD/bsa major 4.2 cm/m 2 --------- ax, A4C NICOLETTE/bsa minor 4.2 cm/m 2 --------- ax, A4C NICOLETTE major ax, 6.3 cm --------- A2C ESD major ax, 5.4 cm --------- A2C NICOLETTE/bsa major 4.9 cm/m 2 --------- ax, A2C ESD/bsa major 4.2 cm/m 2 --------- ax, A2C PW, ED 0.7 cm 0.6 - 0.9 IVS/PW, ED 1.26 --------- EF 49 % 54 - 74 E', lat frida, 10.0 cm/sec >=10.0 TDI E/e', lat frida, 13 --------- TDI E', med frida, 5.5 cm/sec >=7.0 TDI E/e', med frida, 24 --------- TDI E', avg, TDI 7.7 cm/sec --------- E/e', avg, TDI 17 <=14 PATIENT NAME: MILLERMANJIT 4095 LVOT Value Ref Diam, S 1.81 cm --------- Area 2.6 cm 2 --------- Peak siobhan, S 0.87 m/sec --------- Mean siobhan, S 0.56 m/sec --------- VTI, S 19.5 cm --------- Peak grad, S 3 mm Hg --------- Mean grad, S 1 mm Hg --------- SV 50 ml --------- Qs 3.05 L/min --------- Qs/bsa 2.4 L/(min-m 2) --------- SV/bsa 39 ml/m 2 --------- Ventricular septum Value Ref IVS, ED 0.9 cm 0.6 - 0.9 Right ventricle Value Ref TAPSE, MM 2.4 cm 1.7 - 3.1 RVOT Value Ref Peak v, S 0.75 m/sec --------- Peak grad, S 2 mm Hg --------- Left atrium Value Ref AP dim, ES 3.35 cm 2.70 - 3.80 Vol/bsa, ES, 50 ml/m 2 11 - 40 1-p A4C Vol, ES, 2-p 74 ml --------- Vol/bsa, ES, 58 ml/m 2 16 - 34 2-p Vol/bsa, ES, 56 ml/m 2 16 - 34 A/L AP dim, ES MM 2.9 cm 2.7 - 3.8 LA/Ao root 1.11 --------- ratio, MM Right atrium Value Ref Area, ES 14 cm 2 10 - 18 Aortic valve Value Ref Leaflet sep, MM 1.68 cm --------- Peak v, S 1.1 m/sec --------- Mean v, S 0.75 m/sec --------- VTI, S 25.8 cm --------- Mean grad, S 2.5 mm Hg --------- Peak grad, S 4.8 mm Hg --------- LVOT/AV, VTI 0.76 --------- ratio CHRISTEL, VTI 1.95 cm 2 --------- LVOT/AV, Vpeak 0.79 --------- ratio CHRISTEL, Vmax 2.03 cm 2 --------- PATIENT NAME: MANJIT NESS 4095 Mitral valve Value Ref Peak E 0.08 m/sec --------- Peak A 1.23 m/sec --------- Mean v, D 0.66 m/sec --------- VTI leaflet 45.9 cm --------- coapt Decel time 198 ms --------- PHT 74 ms --------- Mean grad, D 2.2 mm Hg --------- Peak grad, D 7.4 mm Hg --------- Peak E/A ratio 1.05 --------- MVA, PHT 3.0 cm 2 --------- MR peak v 4.14 m/sec --------- Pulmonic valve Value Ref AR v, ED 0.61 m/sec --------- Tricuspid valve Value Ref TR peak v 2.45 m/sec <=2.8 Peak RV-RA 24 mm Hg --------- grad, S Aortic root Value Ref Root diam, ED 2.62 cm --------- MM Conclusions Summary: 1. Left ventricle: The cavity size is normal. Wa ll thickness is normal. Systolic function is normal. The estimated ejec tion fraction is 55-59%. Wall motion is normal; there are no reg ional wall motion abnormalities. Left ventricular diastolic funct ion parameters are normal for the patient's age. 2. Left atrium: The atrium is dilated. The end-s ystolic volume index (A-L) is 56 ml/m 2. 3. Mitral valve: There is mild regurgitation. 4. Tricuspid valve: Estimated right ventricular systolic pressure is 29 mmHg. Prepared and electronically signed by Whit Villareal MD 06/12/2022 14:07 Electronically Signed by Whit Villareal MD on 0 06/12/22 at 1407 PATIENT NAME: MANJIT NESS 4095 2022-06-12 13:33:00-00:00 [facility] Gastroenterology Progress Note REPORT#:[id number] REPORT STATUS: Signed DATE:06/12/22 TIME: 1333 PATIENT: MANJIT NESS UNIT #: [id number] ROOM/BED: [place] [address] : 48 AGE: 72 SEX: F ATTEND: Erica Valenzuela od, MD ADM AUTHOR: Ye Sanches MD * ALL edits or amendments must be made on the Circular/computer document * Subjective Chief complaint: Anemia HPI: This is a 72-year-old woman with PMH of HTN, HLD , DM, CVA, PAD who is status post LLE angiogram with stenting that occurred o n 06/06/2022 presents to the ER with chief complaint of BLE pain, and ac [facility] anemia. She also developed a left- sided headache around 3 AM yesterday and so she was seen at [facility]. While there she underwent a CT scan of her head/ brain that showed a old right lacunar infarct, otherwise n onactionable and she was noted to have a hemoglobin level of 4.6. She received 1 unit of PRB Cs transfusion, hemoglobin improved to 7.4 with plans for admission. Patient daughter r equested to leave AMA due to frustration with the wait time for an inpatient bed. Due to concerns for GI bleeding she contaced Dr. Ghosh who recommended pt to come to [facility]. Pt reports having 1 episode of b lack-color stool and vomitus. Her Trop were elevated on pr esentation. She reports having a colonoscopy and EGD many years ago. She is currently on Xare lto and Plavix. Prior to the procedure on 06/06 she was only on Plavix. EGD and colonoscopy performed EGD showed duodenitis and me dium-size AVM in duodenum. Two clips placed followed by APC Colonoscopy: poor prep large amount of solid sto ol precluding visualization Objective Physical Exam HEENT: anicteric Neck: full range of motion Cardiovascular: normal capillary refill Respiratory: aerating well, clear to auscultatio n Abdomen: non-tender, normal bowel sounds, soft, no distention Extremities: no cyanosis, no edema Diagnosis, Assessment Plan Hospital course to date: S/P EGD and colonoscopy EGD showed AVM in the duodenum. It was medium si ze and likely source of her bleeding. 2 clips placed followed by APC Colonoscopy was poorly preped with large amount of solid stool precluding visualization Rec: - PPI PO daily - Follow H/H - Repeat colonoscopy in 2-3 months or earlier if high suspicion for lower GI bleeding in the future Problem List/A P: 1. Anemia 2. Melena 3. Coffee ground emesis at 1336 RPT #:[id number] END OF REPORT 2022-06-12 13:18:00-00:00 [id number] [place] [address] PATIENT NAME: MANJIT NESS ADMIT DATE: 3 ACCOUNT NO: [id number] ROOM NO: [facility] AGE: 72 REPORT TYPE: ENDOSCOPY REPORT SEX: F ADMITTING PHYSICIAN:Jonathon Valenzuela MD ATTENDING PHYSICIAN:Jonathon Valenzuela MD Gastroenterology Patient Name: Manjit Ness Procedure Date: 023 1:18 PM Date of : 1950 Procedure: Colonoscopy Indications: Melena, Acute post hemorrhagic anem ia Providers: Ye Sanches MD Referring MD: Self Referred Requesting Provider: Medicines: Monitored Anesthesia Care Procedure: Pre-Anesthesia Assessment: - Prior to the procedure, a History and Physica l was performed, and patient medications, allergies a nd sensitivities were reviewed. The patient's tole abad of previous anesthesia was reviewed. - The risks and benefits of the procedure and t he sedation options and risks were discussed with the patient. All questions were answered and inform ed consent was obtained. - Patient identification and proposed procedure were verified prior to the procedure by the physicia n, the nurse, the judge and the plastic surgery technician. The procedure was verified in the procedure room. - Pre-procedure physical examination revealed n o contraindications to sedation. - ASA Grade Assessment: III - A patient with s evere systemic disease. - After reviewing the risks and benefits, the p atient was deemed in satisfactory condition to underg o the procedure. - Monitored anesthesia care under the supervisi on of a INSTRUCTIONAL SUPPORT TECHNICIAN was determined to be medically necessary for this procedure based on review of the patient's medi jenifer history, medications, and prior anesthesia hist ory. After I obtained informed consent, the scope wa s passed under direct vision. Throughout the proc edure, the patient's blood pressure, pulse, and oxyge n saturations were monitored continuously. The Colonoscope was introduced through the anus wit h the intention of advancing to the cecum. The scope was PATIENT NAME: MANJIT NESS 4095 advanced to the transverse colon before the pr ocedure was aborted. Medications were given. The colono scopy was performed without difficulty. The patient tolerated the procedure well. The quality of th e bowel preparation was poor. Findings: Extensive amounts of semi-liquid semi-solid mark id stool was found in the rectum, in the sigmoid colon, in the descending colon, at the splenic flexure and in the transverse colon, precluding visualization. Complications: No immediate complications. Estimated Blood Loss: Estimated blood loss: none. Impression: - Preparation of the colon was poor . - Stool in the rectum, in the sigmoid colon, in the descending colon, at the splenic flexure and in the transverse colon. - No specimens collected. Recommendation: - Return patient to [facility] for ongoing care. - Resume previous diet. - Continue present medications. - Repeat colonoscopy in 3 months for screening purposes. Procedure Code(s): --- Professional --- 05263, 53, Colonoscopy, flexible; diagnostic, including collection of specimen(s) by brushing or washing, when performed (separate procedure) Diagnosis Code(s): --- Professional --- K92.1, Melena (includes Hematochezia) D62, Acute posthemorrhagic anemia CPT copyright 2020 [employer]. All rights reserved. The codes documented in this report are prelimin jeb and upon automatic head sawyer review may be revised to meet current compliance requiremen ts. Ye Sanches MD 06/12/2022 1:31:53 PM Number of Addenda: 0 Note Initiated On: 06/12/2022 1:18 PM Provation {[id number]}.pdf ProVation FT PDF at 1332 PATIENT NAME: MANJIT NESS 4095 2022-06-12 12:51:00-00:00 [facility] Pain Management Consult Note REPORT#:[id number] REPORT STATUS: Signed DATE:06/12/22 TIME: 1251 PATIENT: MANJIT NESS UNIT #: [id number] ROOM/BED: [place] : 48 AGE: 72 SEX: F ATTEND: Erica Valenzuela od, MD ADM AUTHOR: Tahira Thomas NP * ALL edits or amendments must be made on the el ectronic/computer document * History of Present Illness Requesting clinician: Jonathon Valenzuela MD Chief complaint: Bilateral feet pain Primary care physician: Jonathon Valenzuela MD HPI: Requesting clinician: Jonathon Kim Reason for consult: Acute complex pain syndrome for evaluation and management This is a 72-year-old female with PMH of HTN, HL D, DM, CVA, PAD S/P LLE angiogram with stent placement on 06/06/19 presents today with chief complaint of BLE pain, from her knees down to her feet shanna t is chronic in nature. Pain history: Location: Pain history: Location: Lower Extremity Radiation: Lower Extremity Onset: gradual Duration: weeks Pain severity: 7/10 Nature of pain: aching Exacerbated by: movement Relieved by: nothing Associated conditions:NA Review of Systems Additional notes: Review was conducted and was negative except for what's noted in the HPI and Medical History. The following systems were revi ewed: Constitutional, cardiovascular, respiratory, gastrointes tinal, genitourinary, musculoskeletal, neurologic, psychiatric, endocrinological, and h ematological. History - Adult longitudinal Past medical history: Reports: COPD, Coronary artery disease, Diabetes mellitus, Hypertension, Dyslipidemia, Periph arterial disease, Prior [place]. Denies: Atrial fibrillation, Congestive heart failure. Past surgical history: Reports: Vascular procedure, PCI. Alcohol use: Denies EtOH use Drug use: Denies recreational drugs Smoking status for patients 13 years old or olde r: Current every day smoker Years smoked: 60 Pack years: 0 Allergies: Coded Allergies: bee venom protein (honey bee) (Severe, HIVES 03/25) Penicillins (HIVES 04/13/22) Objective Physical Exam VS/I O: Last Documented: Result Date Time Pulse Ox 98 06/12 1147 B/P 127/58 06/12 1147 B/P Mean 0.0 06/12 1147 Temp 97.5 06/12 1147 Pulse 59 06/12 1147 Resp 16 06/12 1147 O2 Delivery Room air 06/11 1316 O2 Flow Rate 2 06/11 799 24 hour I O ending at 0700: 06/12 0700 06/11 1900 Intake Total 3000 1768.00 Output Total Balance 3000 1768.00 Intake, IV 1118.00 Intake, Oral 3000 300 Intake, 350 Packed Cells Number Voids 3 3 PATIENT WEIGHT: Weight (lb): Weight (oz): Weight (kg): 45.455 General appearance: alert, awake, oriented, no a cute distress, pleasant, conversational, mental status normal, no respira tory distress Head/eyes: atraumatic Neck: full range of motion, non-tender Respiratory: clear to auscultation, no distress Abdomen: soft Extremities: moves all (lower leg pain) Neuro/BENZENE WASHER: alert Results Findings/data: Laboratory Tests: 06/12 06/12 06/12 06/11 06/11 1138 0804 0430 2332 2203 Chemistry Sodium (134 - 147 mEq/L) 137 Potassium (3.4 - 5.0 mEq/L) 4.4 Chloride (100 - 108 mEq/L) 107 Carbon Dioxide (21 - 33 mEq/l) 23 Anion Gap (0 - 20) 11 BUN (7 - 18 mg/dL) 13 Creatinine (0.6 - 1.3 mg/dL) 1.2 Glomerular Filtr Rate (70 - 80) 47.5 L Glucose (70 - 110 mg/dL) 127 H POC Glucose (70 - 110 MG/DL) 81 86 142 H 45 L Calcium (8.0 - 10.5 mg/dL) 8.4 Hematology WBC (4.5 - 11.0 x10 3/uL) 7.7 RBC (3.54 - 5.02 x10 6/uL) 3.34 L Hgb (11.0 - 15.0 g/dL) 8.2 L Hct (33.0 - 45.0 %) 25.7 L MCV (81.0 - 99.0 fL) 76.9 L MCH (27.0 - 33.0 pg) 24.6 L MCHC (33.0 - 37.0 g/dL) 31.9 L RDW (11.5 - 14.5 %) 23.1 H Plt Count (150 - 400 x10 3/uL) 270 MPV (7.0 - 9.0 fL) 9.4 H / 1653 Chemistry POC Glucose (70 - 110 MG/DL) 95 Diagnosis, Assessment Plan Free text A P: Assessment Patient assessed. chart reviewed. Back p ain is managed with PO IV short acting opioids PRN, Gabapentin for Neuropathic pain and Robaxin for muscle spasm. Plan 1. Acute complex pain syndrome 2/2 Neuropathy - Dilaudid 0.5mg q4hr PRN for pain 7-10 2nd carolee e -[place] 10/325 1tab q4hr PRN for pain 7-10 first line -[place] 5/325 1 tab q4hr PRN for pain 4-6 -Tylenol 650mg q4hr PRN for pain 1-3 2. Neuropathic pain Gabapentin 100mg PO bid 3. Muscle spasm ROBAXIN 500MG daily 4. Insomnia 5. Bowel Regimen - by Primary team -start pain regimen as above -Monitor for S/E such as AMS , Lethargy/sedation, changes in respiratory function -Continue BP parameters -[facility]( Acute Pain services) will continue to foll ow -please call pain management for any pain-relate d concerns or questions Goal: Daily pain control to improve function and /or quality of life ([x]) Pain control until condition naturally res olves ([x]) Inpatient pain control ([x]) Improved sleep cycle ([x]) all narcotics medications will be adjusted according to the patient's medical condition during the hospital stay Alll diagnostic images/lab and medical records d uring the course of this admission as well as EQUIPMENT OPERATOR [employer] records reviewed Risk versus benefit of opiate medications: All r isk and benefit were reviewed with the patient and family members, risk not limited to respiratory depression, accidental overdose, risk of fall, altered menta l status, constipation, dependency, addiction, withdrawn, sudden . Plan discussed with: The pain plan of ca re has been discussed with the patient and the nursing staff. Patient is in agr eement with the following plan of care and wishes to proceed. Quest ions and concerns have been answered to the patient' s satisfaction. Patient has verbalized understan ding. Plan discussed with: patient Electronically Signed by Tahira Thomas NP on 0 06/12/22 at 1522 RPT #:[id number] END OF REPORT 2022-06-12 12:44:00-00:00 [id number] [place] [address] PATIENT NAME: MANJIT NESS ADMIT DATE: 3 ACCOUNT NO: [id number] ROOM NO: [facility] AGE: 72 REPORT TYPE: ENDOSCOPY REPORT SEX: F ADMITTING PHYSICIAN:Jonathon Valenzuela MD ATTENDING PHYSICIAN:Jonathon Valenzuela MD Gastroenterology Patient Name: Manjit Ness Procedure Date: 023 12:44 PM Date of : 1950 Procedure: Upper GI endoscopy Indications: Acute post hemorrhagic anemia, Yue boris Providers: Ye Sanches MD Referring MD: Requesting Provider: Medicines: Monitored Anesthesia Care Procedure: Pre-Anesthesia Assessment: - Prior to the procedure, a History and Physica l was performed, and patient medications, allergies a nd sensitivities were reviewed. The patient's tole abad of previous anesthesia was reviewed. - The risks and benefits of the procedure and t he sedation options and risks were discussed with the patient. All questions were answered and inform ed consent was obtained. - Patient identification and proposed procedure were verified prior to the procedure by the physicia n, the nurse, the judge and the plastic surgery technician. The procedure was verified in the procedure room. - Pre-procedure physical examination revealed n o contraindications to sedation. - ASA Grade Assessment: III - A patient with se elizabeth systemic disease. - After reviewing the risks and benefits, the p atient was deemed in satisfactory condition to undergo the procedure. - Monitored anesthesia care under the supervisi on of a INSTRUCTIONAL SUPPORT TECHNICIAN was determined to be medically necessary f or this procedure based on review of the patient's med ical history, medications, and prior anesthesia hist ory. After obtaining informed consent, the endoscope was passed under direct vision. Throughout the proc edure, the patient's blood pressure, pulse, and oxygen saturations were monitored continuously. The E ndoscope was introduced through the mouth, and advanced to the second part of duodenum. The upper GI endoscopy was PATIENT NAME: MANJIT NESS 4095 accomplished without difficulty. The patient to lerated the procedure well. Findings: The examined esophagus was normal. The entire examined stomach was normal. A single medium angiodysplastic lesion without bleeding was found in the duodenal bulb. For hemostasis, two hemostatic c lips were successfully placed. There was no bleeding at the end of the procedure. Fulguration to ablate the lesion by argon plasma was succes sful. Localized moderately erythematous mucosa withou t active bleeding and with no stigmata of bleeding was found in the d uodenal bulb. Complications: No immediate complications. Estimated Blood Loss: Estimated blood loss: none. Impression: - Normal esophagus. - Normal stomach. 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 Clips were placed. Treated with argon plasma coagulation (APC). - Erythematous duodenopathy. - No specimens collected. Recommendation: - Return patient to [facility] for ongoing care. - Resume previous diet. - Continue present medications. Procedure Code(s): --- Professional --- 33412, Esophagogastroduodenoscopy, flexible, transoral; with ablation of tumor(s), polyp(s) , or other lesion(s) (includes pre- and post-dilatio n and guide wire passage, when performed) 92087, 59, Esophagogastroduodenoscopy, flexible , transoral; with control of bleeding, any method Diagnosis Code(s): --- Professional --- K31.819, Angiodysplasia of stomach and duodenum without bleeding K31.89, Other diseases of stomach and duodenum D62, Acute posthemorrhagic anemia K92.1, Melena (includes Hematochezia) CPT copyright 2020 [employer]. All rights reserved. The codes documented in this report are prelimin jeb and upon automatic head sawyer review may be revised to meet current compliance requiremen ts. Ye Sanches MD 06/12/2022 1:29:20 PM Number of Addenda: 0 PATIENT NAME: MANJIT NESS 4095 Note Initiated On: 06/12/2022 12:44 PM Provation {[id number]}.pdf ProVation FT PDF at 1329 PATIENT NAME: MANJIT NESS 4095 2022-06-12 11:55:00-00:00 [facility] Cardiology Progress Note REPORT#:[id number] REPORT STATUS: Signed DATE:06/12/22 TIME: 1155 PATIENT: MANJIT NESS UNIT #: [id number] ROOM/BED: [place] [address] : 48 AGE: 72 SEX: F ATTEND: Erica Valenzuela od, MD ADM AUTHOR: Elza Nash DEHAIRER * ALL edits or amendments must be made on the el [employer]pro[employer]/computer document * Subjective Comments: s/p EGD Objective General VS/I O: 24 hour I O ending at 0700: 06/12 0700 06/11 1900 Intake Total 3000 1768.00 Output Total Balance 3000 1768.00 Intake, IV 1118.00 Intake, Oral 3000 300 Intake, 350 Packed Cells Number Voids 3 3 Vital Signs: Date Time Temp Pulse Resp B/P B/P Pulse O2 O2 F low FiO2 Mean Ox Delivery Rate 06/12 1147 36.4 59 16 127/58 0.0 98 06/12 0806 36.7 66 20 132/57 0.0 99 06/12 0640 70 22 124/76 92 98 06/12 0513 37.0 72 20 117/68 84 98 06/12 0417 37.1 74 21 121/73 89 95 06/11 2304 36.6 72 15 116/62 0.0 96 06/11 1600 36.7 72 24 118/55 66 99 06/11 1320 37.1 68 20 131/84 100 06/11 1316 36.8 69 20 119/79 92 99 Room air 06/11 1200 36.8 69 21 119/58 66 99 PATIENT WEIGHT: Weight (lb): Weight (oz): Weight (kg): 45.455 Medications: Active Meds + DC'd Last 24 Hrs Fentanyl Citrate (SUBLIMAZE) 100 MCG PACU Q10MIN PRN PRN IV Fentanyl Citrate (SUBLIMAZE) 50 MCG PACU Q10MIN PRN PRN IV Hydralazine HCl (APRESOLINE) 2 MG PACU Q10MIN AR N PRN IV Insulin Human Lispro (HUMALOG) 0 PACU ONCE PRN S UBQ Labetalol HCl (LABETALOL HCL) 5 MG PACU Q10MIN P RN PRN IV Lactated Ringer's (LACTATED RINGERS) 1,000 ML .Q 24H IV Ondansetron HCl (ZOFRAN) 4 MG PACU ONCE PRN IV Pantoprazole Sodium (PROTONIX) 40 MG DAILY IV Polyethylene Glycol/Electrolytes (GOLYTELY) 2,00 0 ML ONCE ONE PO (DC) Sodium Chloride (SODIUM CHLORIDE 0.9%) 1,000 ML PREOP ONCALL IV Sodium Chloride (SODIUM CHLORIDE) 5 ML ASDIR PRN IV Atorvastatin Calcium (LIPITOR) 40 MG BEDTIME PO Ropinirole HCl (REQUIP) 1 MG BEDTIME PO Polyethylene Glycol/Electrolytes (GOLYTELY) 2,00 0 ML ONCE ONE PO (DC) Sodium Chloride (SODIUM CHLORIDE) 10 ML ASDIR AR N IV Clopidogrel Bisulfate (Plavix) 75 MG DAILY PO Lisinopril (ZESTRIL) 10 MG DAILY PO Rivaroxaban (XARELTO 15MG) 15 MG DAILY PO Albuterol Sulfate (ALBUTEROL SULFATE) 2.5 MG RTQ 4H PRN PRN NEB Hydroxyzine HCl (ATARAX) 25 MG Q6H PRN PO Insulin Human Lispro (HUMALOG) 0 AC HS SUBQ Acetaminophen (TYLENOL) 650 MG Q4H PRN PRN PO Dextrose/Water (DEXTROSE 10% IN WATER) 125 ML DIR PRN IV (CKD) Dextrose/Water (DEXTROSE 10% IN WATER) 250 ML DIR PRN IV (CKD) Glucagon (GLUCAGON) 1 MG ASDIR PRN IM Hydrocodone Bitart/Acetaminophen (NORCO 5/325) 1 TAB Q4H PRN PRN PO Morphine Sulfate (morphine SULFATE) 4 MG Q4H PRN PRN IV Ondansetron HCl (ZOFRAN) 4 MG Q6H PRN PRN IV Physical Exam General appearance: chronically ill appearing, f rail, alert, awake Head/Eyes: atraumatic, PERRL Cardiovascular: CV assessment: regular rate and rhythm, pedal p ulses present Respiratory: decreased breath sounds, no distres s Abdomen: soft, non-tender, normal bowel sounds, no distention, no guarding Lower extremity: LE assessment: normal capillary refill, normal temperature, no calf tenderness, no edema Neuro/BENZENE WASHER: alert, oriented X 3 Skin: dry Psychiatry: normal affect, normal mood Results Findings/Data: Laboratory Tests 06/12 06/12 06/12 06/11 06/11 1138 0804 0430 2332 2203 Chemistry Sodium (134 - 147 mEq/L) 137 Potassium (3.4 - 5.0 mEq/L) 4.4 Chloride (100 - 108 mEq/L) 107 Carbon Dioxide (21 - 33 mEq/l) 23 Anion Gap (0 - 20) 11 BUN (7 - 18 mg/dL) 13 Creatinine (0.6 - 1.3 mg/dL) 1.2 Glomerular Filtr Rate (70 - 80) 47.5 L Glucose (70 - 110 mg/dL) 127 H POC Glucose (70 - 110 MG/DL) 81 86 142 H 45 L Calcium (8.0 - 10.5 mg/dL) 8.4 06/11 1653 Chemistry POC Glucose (70 - 110 MG/DL) 95 Laboratory Tests 06/12 0430 Hematology WBC (4.5 - 11.0 x10 3/uL) 7.7 RBC (3.54 - 5.02 x10 6/uL) 3.34 L Hgb (11.0 - 15.0 g/dL) 8.2 L Hct (33.0 - 45.0 %) 25.7 L MCV (81.0 - 99.0 fL) 76.9 L MCH (27.0 - 33.0 pg) 24.6 L MCHC (33.0 - 37.0 g/dL) 31.9 L RDW (11.5 - 14.5 %) 23.1 H Plt Count (150 - 400 x10 3/uL) 270 MPV (7.0 - 9.0 fL) 9.4 H Results: labs reviewed, vital signs reviewed, [facility] personally rev'd Echo results: Summary: 1. Left ventricle: The cavity size is normal. Wa ll thickness is normal. Systolic function is normal. The estimated ejec tion fraction is 55-59%. Wall motion is normal; there are no reg ional wall motion abnormalities. Left ventricular diastolic funct ion parameters are normal for the patient's age. 2. Left atrium: The atrium is dilated. The end-s ystolic volume index (A-L) is 56 ml/m 2. 3. Mitral valve: There is mild regurgitation. 4. Tricuspid valve: Estimated right ventricular systolic pressure is 29 mmHg. Diagnosis, Assessment Plan Free Text DxA P Notes Free Text DxA P Notes: 1. Anemia s/p blood transfusion Echo preserverd LVEF - moderate risk for EGD and colonoscopy s/p EGD showed AVM in the duodenum s/p 2 clippin g and APC. Colonoscopy not done d/t poor bowel prep 2. Elevated troponins likely demand ischemia unl ikely ACS hx CAD Troponin: 607->541->593 echo preserved LVEF denies chest pain, reports SOB is same (COPD) LDL 50 EKG done on 06/10/22 and 06/11/22 are all normal sin us rhythm, no Afib 3. Severe PAD s/p thrombectomy and stent in popl iteal/tibioperoneal artery on left (06/06) on xarelto and plavix pt reports neuropathy pain BLE are warm with good pulses 4. CAD s/p prior PCI/stenting denies chest pain continue Plavix, statin echo preserved LVEF, NWM EKG - normal sinus rhythm 5. COPD stable 6. Hypertension continue lisinopril Manage per primary team 7. DM per IM at 1605 Electronically Signed by Whit Villareal MD on at 2337 RPT #:[id number] END OF REPORT 2022-06-12 07:24:00-00:00 [facility] Hospitalist Progress Note REPORT#:[id number] REPORT STATUS: Signed DATE:06/12/22 TIME: 723 PATIENT: MANJIT NESS UNIT #: [id number] ROOM/BED: [place] [address] : 48 AGE: 72 SEX: F ATTEND: Erica Valenzuela od, MD ADM AUTHOR: Bryant Zheng [facility] * ALL edits or amendments must be made on the Circular/computer document * Bryant Zheng 06/12/22 0724: Subjective Chief complaint: NPO for EGD and colonscopy. Still having Left Le pain. NO Cp, fever, chills. No N/v/D. BP and HR stable. Review of Systems Constitutional: Reports: fatigue, lethargy. Skin: Denies: bruising, contusion, ecchymosis. ENT: Denies: earache, mouth pain, nose bleeding, sore throat, tongue pain. Respiratory: Denies: FALL (dyspnea on exertion), hemoptysis, p arox nocturnal dyspnea, pleuritic pain, productive cough (sputum). Cardiovascular: Denies: FALL (dyspnea on exertion), orthopnea, pa lpitations. GI: Denies: constipation, dysphagia, hematemesis, he matochezia, melena, nausea. : Denies: flank pain, frequency, nocturia, pregnan t, urgency. Musculoskeletal: Extremity pain: Reports: left lower. Joint pain: Reports: left lower. Endocrine: Denies: polydipsia, polyphagia, polyuria, weight gain. Neuro: Denies: bowel dysfunction, headache, seizure, sp inning sensation. Objective General VS/I O: Vital Signs: Date Time Temp Pulse Resp B/P B/P Pulse O2 O2 F low FiO2 Mean Ox Delivery Rate 06/12 0640 70 22 124/76 92 98 06/12 0513 37.0 72 20 117/68 84 98 06/12 0417 37.1 74 21 121/73 89 95 06/11 2304 36.6 72 15 116/62 0.0 96 06/11 1600 36.7 72 24 118/55 66 99 06/11 1320 37.1 68 20 131/84 100 06/11 1316 36.8 69 20 119/79 92 99 Room air 06/11 1200 36.8 69 21 119/58 66 99 06/11 1000 36.8 71 18 119/79 92 99 Room air 06/11 0800 Nasal 2 cannula 06/11 0800 37.0 72 16 118/55 78 99 Room air 24 hour I O ending at 0700: 06/12 0700 06/11 1900 Intake Total 3000 1768.00 Output Total Balance 3000 1768.00 Intake, IV 1118.00 Intake, Oral 3000 300 Intake, 350 Packed Cells Number Voids 3 3 PATIENT WEIGHT: Weight (lb): Weight (oz): Weight (kg): 45.455 Medications: Active Meds + DC'd Last 24 Hrs Pantoprazole Sodium (PROTONIX) 40 MG DAILY IV Polyethylene Glycol/Electrolytes (GOLYTELY) 2,00 0 ML ONCE ONE PO (DC) Sodium Chloride (SODIUM CHLORIDE 0.9%) 1,000 ML PREOP ONCALL IV Sodium Chloride (SODIUM CHLORIDE) 5 ML ASDIR PRN IV Atorvastatin Calcium (LIPITOR) 40 MG BEDTIME PO Ropinirole HCl (REQUIP) 1 MG BEDTIME PO Polyethylene Glycol/Electrolytes (GOLYTELY) 2,00 0 ML ONCE ONE PO (DC) Sodium Chloride (SODIUM CHLORIDE) 10 ML ASDIR AR N IV Clopidogrel Bisulfate (Plavix) 75 MG DAILY PO Lisinopril (ZESTRIL) 10 MG DAILY PO Rivaroxaban (XARELTO 15MG) 15 MG DAILY PO Albuterol Sulfate (VENTOLIN HFA) 1 PUFF RTQ4H AR N PRN INH (CAN) Albuterol Sulfate (ALBUTEROL SULFATE) 2.5 MG RTQ 4H PRN PRN NEB Hydroxyzine HCl (ATARAX) 25 MG Q6H PRN PO Insulin Human Lispro (HUMALOG) 0 AC HS SUBQ Acetaminophen (TYLENOL) 650 MG Q4H PRN PRN PO Dextrose/Water (DEXTROSE 10% IN WATER) 125 ML DIR PRN IV (CKD) Dextrose/Water (DEXTROSE 10% IN WATER) 250 ML DIR PRN IV (CKD) Glucagon (GLUCAGON) 1 MG ASDIR PRN IM Hydrocodone Bitart/Acetaminophen (NORCO 5/325) 1 TAB Q4H PRN PRN PO Morphine Sulfate (morphine SULFATE) 4 MG Q4H PRN PRN IV Ondansetron HCl (ZOFRAN) 4 MG Q6H PRN PRN IV Dietitian nutrition assessment The data set between the solid lines has been im ported from the dietitian's assessment. BMI Calculated: 20.2 Nutrition related diagnosis: Nutrition diagnosis details: Nutrition problem: Nutrition etiology: Nutrition signs and symptoms: Nutrition prescription: Dietitian name: Assessment completed: Physical Exam General appearance: alert, awake, oriented Head/Eyes: atraumatic, normocephalic, PERRLA Neck: supple/no meningismus, no bruit/NL carotid s, no JVD Cardiovascular: normal capillary refill, normal heart sounds, regular rate rhythm Respiratory: aerating well, symmetric expansion, no distress Abdomen: non-tender, normal bowel sounds, soft Genitourinary: no bladder distention, no flank p ain Extremities: no clubbing, no edema Musculoskeletal: no CVA tenderness, no midline v ertebral tend Neuro/BENZENE WASHER: alert, oriented X 3, CNII-XII intact Results Findings/Data: Laboratory Tests 06/12 06/11 06/11 06/11 06/11 0430 2332 2203 1653 0915 Chemistry Sodium (134 - 147 mEq/L) 137 Potassium (3.4 - 5.0 mEq/L) 4.4 Chloride (100 - 108 mEq/L) 107 Carbon Dioxide (21 - 33 mEq/l) 23 Anion Gap (0 - 20) 11 BUN (7 - 18 mg/dL) 13 Creatinine (0.6 - 1.3 mg/dL) 1.2 Glomerular Filtr Rate (70 - 80) 47.5 L Glucose (70 - 110 mg/dL) 127 H POC Glucose (70 - 110 MG/DL) 142 H 45 L 95 108 Calcium (8.0 - 10.5 mg/dL) 8.4 Laboratory Tests 06/12 429 Hematology WBC (4.5 - 11.0 x10 3/uL) 7.7 RBC (3.54 - 5.02 x10 6/uL) 3.34 L Hgb (11.0 - 15.0 g/dL) 8.2 L Hct (33.0 - 45.0 %) 25.7 L MCV (81.0 - 99.0 fL) 76.9 L MCH (27.0 - 33.0 pg) 24.6 L MCHC (33.0 - 37.0 g/dL) 31.9 L RDW (11.5 - 14.5 %) 23.1 H Plt Count (150 - 400 x10 3/uL) 270 MPV (7.0 - 9.0 fL) 9.4 H Results: labs reviewed, vital signs reviewed, vi maria r signs stable, current med profile rev'd Treatment Prophylaxis Treatment Prophylaxis Oxygen: room air Diagnosis, Assessment Plan Code status: full code Plan discussed with: patient, admitting physicia n, consultants, nurse Free Text DxA P Notes Free text DxA P notes: Assessment and Plan: - Severe Left LE PVD. - Left LE pain due to Severe PVD. - Elevated Troponin due to Demand Ischemia. - Acute on chroninc Blood Loss Anemia. - HX of HTN, HLD, DM, CVA, PAD. - Smoker. PLan: Floor. NPO for EGD and Colonoscopy. Consult cardiology for Elevated troponin. Vascular for PVD. Monitor H H. Pain meds. Antiemetics. Pain management consult. FOllow labs and repalce as needed. Nicotine patch. Continue Xeralto and Plavix. continue Home meds. PT and OT. Monitor. Jonathon Valenzuela 06/12/22 1834: Attestations Physician Attestation Agree w/findings plan: Patient seen and examined, I agree with the findings and plans as documented by Bryant Zheng NP Electronically Signed by Bryant Zheng [facility] on 02/24 at 0726 Electronically Signed by Jonathon Valenzuela MD on 0 06/12/22 at 1856 RPT #:[id number] END OF REPORT 2022-06-11 11:31:00-00:00 [facility] Consultation Note REPORT#:[id number] REPORT STATUS: Signed DATE:06/11/22 TIME: 1131 PATIENT: MANJIT NESS UNIT #: [id number] ROOM/BED: [place] [address] : 48 AGE: 72 SEX: F ATTEND: Erica Valenzuela od, MD ADM AUTHOR: Ye Sanches MD * ALL edits or amendments must be made on the Circular/computer document * History of Present Illness Requesting clinician: Jonathon Valenzuela Reason for consult: Anemia Chief complaint: Anemia PCP: PCP: Ariadne Sheikh NP HPI: This is a 72-year-old woman with PMH of HTN, HLD , DM, CVA, PAD who is status post LLE angiogram with stenting that occurred o n 06/06/2022 presents to the ER with chief complaint of BLE pain, and ac [facility] anemia. She also developed a left- sided headache around 3 AM yesterday and so she was seen at [facility]. While there she underwent a CT scan of her head/ brain that showed a old right lacunar infarct, otherwise n onactionable and she was noted to have a hemoglobin level of 4.6. She received 1 unit of PRB Cs transfusion, hemoglobin improved to 7.4 with plans for admission. Patient daughter r equested to leave A due to frustration with the wait time for an inpatient bed. Due to concerns for GI bleeding she contaced Dr. Ghosh who recommended pt to come to [facility]. Pt reports having 1 episode of b lack-color stool and vomitus. Her Trop were elevated on pr esentation. She reports having a colonoscopy and EGD many years ago. She is currently on Xare lto and Plavix. Prior to the procedure on 06/06 she was only on Plavix. History - Adult longitudinal Past medical history: Reports: COPD, Coronary artery disease, Diabetes mellitus, Hypertension, Dyslipidemia, Periph arterial disease, Prior [place]. Denies: Atrial fibrillation, Congestive heart failure. Past surgical history: Reports: Vascular procedure, PCI. Alcohol use: Denies EtOH use Drug use: Denies recreational drugs Smoking status for patients 13 years old or olde r: Current every day smoker Years smoked: 60 Pack years: 0 Allergies: Coded Allergies: bee venom protein (honey bee) (Severe, HIVES 03/25) Penicillins (HIVES 04/13/22) Review of Systems All systems rev neg: except as marked Objective Physical Exam VS/I O: Last Documented: Result Date Time Pulse Ox 98 06/11 455 B/P 133/63 06/11 0456 B/P Mean 0.0 06/116 O2 Delivery Room air 06/11 455 Temp 98.4 06/11 455 Pulse 67 06/11 0456 Resp 21 06/11 455 24 hour I O ending at 0700: 06/11 0700 06/10 1900 Intake Total Output Total Balance Number Voids 1 Patient 45.455 kg Weight Weight Stated/Reported Measurement Method PATIENT WEIGHT: Weight (lb): Weight (oz): Weight (kg): 45.455 General appearance: alert, awake, oriented HEENT: anicteric Neck: full range of motion Cardiovascular: normal capillary refill Respiratory: aerating well, clear to auscultatio n Abdomen: non-tender, normal bowel sounds, soft, no distention Extremities: no cyanosis, no edema Diagnosis, Assessment Plan Problem List/A P: 1. Anemia 2. Melena 3. Coffee ground emesis Orders: 72 year old woman who had a vascular pro cedure on 06/06 with stent placement and was then paced on Xeralto in addition to her Plavix came in with anemia with 1 episode of coffee-ground jonathan sis and melena. HB was low at 4 and was give 1 unit of blood with HB of 7.4 BUN/ cr ratio is not high. She is stable now without any melena or bleeding. Last EGD and colonoscopy man y years ago. Rec: - IV PPI 40 mg BID - 2 large IV lines - Tranfuse as need to keep HB >7 - Cardiology clearance for EGD/colonoscopy given elevated trop - clear liquid diet and NPO after MN - Plan for EGD and colonoscopy tomorrow if clear ed by cardiology at 1140 RPT #:[id number] END OF REPORT 2022-06-11 09:12:00-00:00 [facility] ([facility]) Cardiology Consultation REPORT#:[id number] REPORT STATUS: Signed DATE:06/11/22 TIME: 911 PATIENT: MANJIT NESS UNIT #: [id number] ROOM/BED: [place] [address] : 48 AGE: 72 SEX: F ATTEND: Erica Valenzuela od, MD ADM AUTHOR: Reba Rodriges [facility] * ALL edits or amendments must be made on the Circular/computer document * History of Present Illness HPI Requesting Clinician: Dr. Valenzuela Reason for consult: elevated trop Chief complaint: bilateral feet pain 1 episode of melena HPI: This is a 72 year old female with pMhx of severe PAD s/p recent intervention, CAD s/p PCI/stenting in the past, COPD, HTN, HLD, DM who presented to the ED due to 1 episode of melena and c offee ground emesis and HH 7.4 which is a drop from 9.4 on 06/06. Also noted was elevated troponins wh ich are trending down. She denies chest pain and states sob is same as usual due to COPD. She reports that both of feet hurt but descri bes pain as neuropathy. BLE are warm and pulses are palpable. She has received PRBCs since admission and GI is planning EGD/ colonoscopy tomorrow pending cardiac clearance. Echo is pending, if normal then ok to proceed from cardiac standpoint. Covering for Dr. Grey. Thank you for the opportunity to participate on this case. History - Adult longitudinal Past medical history: Reports: COPD, Coronary artery disease, Diabetes mellitus, Hypertension, Dyslipidemia, Periph arterial disease, Prior [place]. Denies: Atrial fibrillation, Congestive heart failure. Past surgical history: Reports: Vascular procedure, PCI. Alcohol use: Denies EtOH use Drug use: Denies recreational drugs Smoking status for patients 13 years old or olde r: Current every day smoker Years smoked: 60 Pack years: 0 Home medications: Home Medications: rOPINIRole (REQUIP) 4 MG PO BID LISINOPRIL (ZESTRIL) 10 MG PO DAILY ATORVASTATIN (LIPITOR) 40 MG PO DAILY hydrOXYzine HCL (ATARAX) 25 MG PO Q6H PRN ALLERG IES metFORMIN (GLUCOPHAGE) 1,000 MG PO BID CLOPIDOGREL (PLAVIX) 75 MG PO DAILY RIVAROXABAN (XARELTO) 15 MG PO DAILY ALBUTEROL (PROVENTIL HFA 90 MCG/ACT 6.7 GM) 1 PU FF INH RTQ4H PRN PRN COPD ALBUTEROL (ALBUTEROL 2.5 MG/3 ML (75mL)) 2.5 MG NEB RTQ4H PRN PRN WHEEZING Allergies: Coded Allergies: bee venom protein (honey bee) (Severe, HIVES 03/25) Penicillins (HIVES 04/13/22) Review of Systems Constitutional: Denies: chills, fatigue. Skin: Denies: diaphoresis. Respiratory: Reports: SOB. Cardiovascular: Denies: chest pain, palpitations. GI: Reports: melena, nausea, vomiting. Denies: abdom inal pain. : Denies: dysuria, flank pain, frequency, hematuri a. Musculoskeletal: extremity pain. Denies: extremity swelling. Neuro: Denies: confusion, numbness, spinning sensation, syncope. Objective General VS/I O: Vital Signs: Date Time Temp Pulse Resp B/P B/P Pulse O2 O2 F low FiO2 Mean Ox Delivery Rate 06/11 1320 37.1 68 20 131/84 100 06/11 1316 36.8 69 20 119/79 92 99 Room air 06/11 1000 36.8 71 18 119/79 92 99 Room air 06/11 0800 36.7 80 16 119/58 78 98 Room air 06/11 0456 36.9 67 21 133/63 0.0 98 Room air 06/10 2357 36.8 78 15 131/60 0.0 98 06/10 1510 36.6 87 18 128/68 88 99 Room air 24 hour I O ending at 0700: 06/11 0700 06/10 1900 Intake Total Output Total Balance Number Voids 1 Patient 45.455 kg Weight Weight Stated/Reported Measurement Method PATIENT WEIGHT: Weight (lb): Weight (oz): Weight (kg): 45.455 Physical Exam General appearance: alert, awake, oriented Head/Eyes: atraumatic, PERRL Cardiovascular: CV assessment: regular rate and rhythm, pedal p ulses present Respiratory: decreased breath sounds, no distres s Abdomen: soft, non-tender, normal bowel sounds, no distention, no guarding Lower extremity: LE assessment: normal capillary refill, normal temperature, no calf tenderness, no edema Neuro/BENZENE WASHER: alert, oriented X 3 Results Radiology Data: Recent Impressions: RADIOLOGY - XR CHEST 1 V 06/10 1710 Report Impression - Status: SIGNED Entered: 06/10/2022 1824 IMPRESSION: Trace right pleural effusion/atelectasis. Mild cardiomegaly. Impression By: [email or web address] Hillary Sun ULTRASOUND - DOP [employer] SALES REPRESENTATIVE [employer]EV[employer] LENA 06/10 1827 Report Impression - Status: SIGNED Entered: 06/10/2022 1920 IMPRESSION: 1. The presence of monophasic flow in both commo n femoral arteries would suggest a mild degree of inflow impairment . It is noted there is strong monophasic flow in both common f emoral arteries. 2. 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 T here is good monophasic flow in the mid right superficial fem oral artery probably related to collaterals. 3. Overall, there is probable moderate vascular disease on the right including inflow impairment and proximal s uperficial femoral artery disease. There is also probable mild runo ff disease. 4. Stent is noted in the region of the left comm on femoral artery which appears to be patent. 5. Stent is noted in the left popliteal artery w hich appears to be patent. 6. Good strong monophasic left posterior tibial waveforms are noted which would indicate there is good flow through the stents and adequate vascular ization of the left lower extr emity. There is overall probable mild multilevel obstructive vas cular disease involving the left lower extremity Please correlate these findings with clinical in formation, clinical examination, and ankle -- brachial ratios. Impression By: [email or web address] - Armando Light M.D . Diagnosis, Assessment Plan Free Text DxA P Notes Free Text DxA P Notes: 1. Anemia, suspect Upper GI bleed s/p blood transfusion GI planning EGD/Colonoscopy tomorrow pending car diac clearance echo pending 2. Elevated troponins likely demand ischemia, r/ o ACS hx CAD echo pending denies chest pain, reports SOB is same (COPD) cardiac enzymes are trending down LDL 50 unable to locate EKG but documentation s ays Afib?, no acute ischemic findings- will repeat today monitor if echo is stable then ok to proceed with EDG/co lonoscopy- pt is at moderate risk. 3. Severe PAD s/p thrombectomy and stent in popl iteal/tibioperoneal artery on left (06/06) on xarelto and plavix pt reports neuropathy pain BLE are warm with good pulses 4. CAD s/p prior PCI/stenting denies chest pain echo pending ekg pending- unable to locate the one that was d one 5. COPD stable 6. Hypertension stable, continue to monitor 7. DM per IM Electronically Signed by Reba Rodriges NP on 0 06/11/22 at 1437 at 1401 RPT #:[id number] END OF REPORT 2022-06-11 07:00:00-00:00 [facility] ([facility]) Hospitalist History Physical REPORT#:[id number] REPORT STATUS: Signed DATE:06/11/22 TIME: 699 PATIENT: MANJIT NESS UNIT #: [id number] ROOM/BED: [place] [address] : 48 AGE: 72 SEX: F ATTEND: Erica Valenzuela od, MD ADM AUTHOR: Bryant Zheng [facility] * ALL edits or amendments must be made on the el [employer]/computer document * Bryant Zheng 06/11/22 0700: History of Present Illness HPI Chief complaint: Le pain PCP: PCP: Ariadne Sheikh [facility] HPI: 72-year-old female with PMH of HTN, HLD, DM, CVA , PAD who is status post LLE angiogram with stenting that occurred on 06/06/2022 presents to the ER with chief complaint of BLE pain, from her knees down to her feet that is chronic in nature , improved for 1 day status post her recent procedure and has been present again for the past 2 days. She als o developed a left-sided headache around 3 AM today and so she was seen at [facility]. While there she underwent a CT scan of her head/brain that showed a old right lacunar infarct, otherwise nonactionable and she was noted to have a hemoglobin level of 4.6. She received 1 unit of PRBCs transfusion, hemoglobi n improved to 7.4 with plans for admission. Patient daughter requested to leave AMA due to frustrati on with the wait time for an inpatient bed. Patient denie s any recent F/C, congestion, CP, palpitations, SOB , back pain, abdominal pain, vomiting, diarrhea, melena/hematochezia, weakness, dizziness or syncope. Her wroked up showed Low H gb and elevated Troponin. Her Arterial doppler study showed severe PVD. History Past medical history: Reports: COPD, Coronary artery disease, Diabetes mellitus, Hypertension, Dyslipidemia, Periph arterial disease, Prior [place]. Denies: Atrial fibrillation, Congestive heart failure. Past surgical history: Reports: Vascular procedure, PCI. Alcohol use: Denies EtOH use Drug use: Denies recreational drugs Smoking status for patients 13 years old or olde r: Current every day smoker Years smoked: 60 Pack years: 0 Medication/Allergy-Vaccine Hx Medications: Home Medications: Medication Dose/Rte/Freq Days Qty Entered Last Max Daily Dose Reviewed rOPINIRole (REQUIP) 4 MG PO BID 04/25/21 Strength: 2 MG TAB 0896 2714 LISINOPRIL (ZESTRIL) 10 MG PO DAILY 04/11/22 Strength: 10 MG TAB 1114 2344 ATORVASTATIN (LIPITOR) 40 MG PO DAILY 04/11/22 06/10/22 Strength: 40 MG TAB 1115 2346 hydrOXYzine HCL (ATARAX) 25 MG PO 04/11/2212/24 Strength: 25 MG TAB Q6H PRN ALLERGIES 1116 2344 metFORMIN (GLUCOPHAGE) 1,000 MG PO BID 04/25/21 06/10/22 Strength: (Unknown 0840 2343 Strength) TAB CLOPIDOGREL (PLAVIX) 75 MG PO DAILY 04/25/21 Strength: 75 MG TAB 0844 2344 RIVAROXABAN (XARELTO) 15 MG PO DAILY 06/02/22 0 06/10/22 Strength: 15 MG TAB 1505 2344 ALBUTEROL 1 PUFF INH 06/02/22 06/10/22 (PROVENTIL HFA 90 RTQ4H PRN PRN COPD 1542 2344 MCG/ACT 6.7 GM) Strength: 90 MCG INHALER ALBUTEROL 2.5 MG NEB 06/02/22 (ALBUTEROL 2.5 MG/3 ML RTQ4H PRN PRN 1542 (75mL)) WHEEZING Strength: 2.5 MG/3 ML (0.083 %) NEB Current Hospital Medications: Autonomic Drugs Sig/Serenity Start time Last Medication Dose Route Stop Time Status Admin Albuterol Sulfate 1 PUFF RTQ4H PRN PRN 06/11 07 00 UNV (VENTOLIN HFA) INH 07/11 0559 Albuterol Sulfate 2.5 MG RTQ4H PRN PRN 06/11 07 00 UNV (ALBUTEROL SULFATE) NEB 07/11 0659 Blood Formation,Coagulation Sig/Serenity Start time Last Medication Dose Route Stop Time Status Admin Clopidogrel Bisulfate 75 MG DAILY 06/11 899 UN V (Plavix) PO 07/11 858 Rivaroxaban 15 MG DAILY 06/11 899 UNV (XARELTO 15MG) PO 07/11 858 Cardiovascular Drugs Sig/Serenity Start time Last Medication Dose Route Stop Time Status Admin Atorvastatin Calcium 40 MG DAILY 06/11 899 UNV (LIPITOR) PO 07/11 858 Lisinopril 10 MG DAILY 06/11 899 UNV (ZESTRIL) PO 07/11 858 Central Nervous System Agents Sig/Serenity Start time Last Medication Dose Route Stop Time Status Admin Ropinirole HCl 1 MG BEDTIME 06/11 2100 UNV (REQUIP) PO 07/11 2058 Hydroxyzine HCl 25 MG Q6H PRN 06/11 699 UNV (ATARAX) PO 07/11 658 Aspirin 324 MG ONCE ONE 06/10 2044 DC 06/10 (ASPIRIN) PO 06/10 204 2337 Acetaminophen 650 MG Q4H PRN PRN 06/10 190 AC (TYLENOL) PO 06/11 174 Hydrocodone Bitart/ 1 TAB Q4H PRN PRN 06/10 19 00 AC 06/11 Acetaminophen PO 06/11 174 0228 (NORCO 5/325) Morphine Sulfate 4 MG Q4H PRN PRN 06/10 1900 AC 06/10 (morphine SULFATE) IV 06/11 174 2326 Morphine Sulfate 4 MG X1ED STA 06/10 164 DC (morphine SULFATE) IV 06/10 164 1732 Electrolytic, Caloric, And Nicki Sig/Serenity Start time Last Medication Dose Route Stop Time Status Admin Dextrose/Water 125 ML ASDIR PRN 06/10 190 CKD (DEXTROSE 10% IN IV 06/11 174 WATER) Dextrose/Water 250 ML ASDIR PRN 06/10 190 CKD (DEXTROSE 10% IN IV 06/11 174 WATER) Gastrointestinal Drugs Sig/Serenity Start time Last Medication Dose Route Stop Time Status Admin Ondansetron HCl 4 MG Q6H PRN PRN 06/10 1900 AC 06/10 (ZOFRAN) IV 06/11 174 2326 Ondansetron HCl 4 MG X1ED STA 06/10 164 DC (ZOFRAN) IV 06/10 164 1732 Hormones And Synthetic Substit Sig/Serenity Start time Last Medication Dose Route Stop Time Status Admin Insulin Human Lispro 0 AC HS 06/10 2100 AC (HUMALOG) SUBQ 06/11 174 Glucagon 1 MG ASDIR PRN 06/10 1900 AC (GLUCAGON) IM 06/11 174 Allergies: Coded Allergies: bee venom protein (honey bee) (Severe, HIVES 03/25) Penicillins (HIVES 04/13/22) Review of Systems Constitutional: Reports: fatigue, generalized weakness. Allergy/Immun: Denies: anaphylaxis. ENT: Denies: earache, mouth pain, throat pain, tongue pain. Respiratory: Denies: hemoptysis, non productive cough, parox nocturnal dyspnea, productive cough (sputum). Cardiovascular: Denies: edema, orthopnea, parox nocturnal dyspne a. GI: Denies: anorexia, diarrhea, hematemesis, hematoc hezia, nausea. : Denies: dysuria, hematuria, pelvic pain, urgency , urinary retention. Musculoskeletal: Extremity pain: Reports: bilateral. Endocrine: Denies: polydipsia, polyphagia, polyuria. Neuro: Denies: change in LOC, dizziness, slurred speech . Objective General VS/I O: Vital Signs: Date Time Temp Pulse Resp B/P B/P Pulse O2 O2 F low FiO2 Mean Ox Delivery Rate 06/11 0456 36.9 67 21 133/63 0.0 98 Room air 06/10 2357 36.8 78 15 131/60 0.0 98 06/10 1510 36.6 87 18 128/68 88 99 Room air 24 hour I O ending at 0700: 06/11 0700 06/10 1900 Intake Total Output Total Balance Number Voids 1 Patient 45.455 kg Weight Weight Stated/Reported Measurement Method PATIENT WEIGHT: Weight (lb): Weight (oz): Weight (kg): 45.455 Medications: Active Meds + DC'd Last 24 Hrs Ropinirole HCl (REQUIP) 1 MG BEDTIME PO (UNV) Atorvastatin Calcium (LIPITOR) 40 MG DAILY PO (U NV) Clopidogrel Bisulfate (Plavix) 75 MG DAILY PO (U NV) Lisinopril (ZESTRIL) 10 MG DAILY PO (UNV) Rivaroxaban (XARELTO 15MG) 15 MG DAILY PO (UNV) Albuterol Sulfate (VENTOLIN HFA) 1 PUFF RTQ4H AR N PRN INH (UNV) Albuterol Sulfate (ALBUTEROL SULFATE) 2.5 MG RTQ 4H PRN PRN NEB (UNV) Hydroxyzine HCl (ATARAX) 25 MG Q6H PRN PO (UNV) Insulin Human Lispro (HUMALOG) 0 AC HS SUBQ Aspirin (ASPIRIN) 324 MG ONCE ONE PO (DC) Acetaminophen (TYLENOL) 650 MG Q4H PRN PRN PO Dextrose/Water (DEXTROSE 10% IN WATER) 125 ML DIR PRN IV (CKD) Dextrose/Water (DEXTROSE 10% IN WATER) 250 ML DIR PRN IV (CKD) Glucagon (GLUCAGON) 1 MG ASDIR PRN IM Hydrocodone Bitart/Acetaminophen (NORCO 5/325) 1 TAB Q4H PRN PRN PO Morphine Sulfate (morphine SULFATE) 4 MG Q4H PRN PRN IV Ondansetron HCl (ZOFRAN) 4 MG Q6H PRN PRN IV Morphine Sulfate (morphine SULFATE) [address] A IV (DC) Ondansetron HCl (ZOFRAN) 4 MG X1ED STA IV (DC) Physical Exam General appearance: alert, awake, oriented Head/Eyes: atraumatic, normocephalic, PERRLA Neck: supple/no meningismus, no bruit/NL carotid s, no JVD Cardiovascular: normal capillary refill, normal heart sounds, regular rate rhythm Respiratory: aerating well, symmetric expansion, no distress Abdomen: non-tender, normal bowel sounds, soft Genitourinary: no bladder distention, no flank p ain Extremities: no clubbing, no edema Musculoskeletal: no CVA tenderness, no midline v ertebral tend Neuro/BENZENE WASHER: alert, oriented X 3, CNII-XII intact Results Findings/Data: Laboratory Tests 06/11 06/10 06/10 06/10 06/10 0234 2334 2321 1740 1740 Chemistry Sodium (134 - 147 mEq/L) 134 Potassium (3.4 - 5.0 mEq/L) 4.4 Chloride (100 - 108 mEq/L) 105 Carbon Dioxide (21 - 33 mEq/l) 23 Anion Gap (0 - 20) 10 BUN (7 - 18 mg/dL) 24 H Creatinine (0.6 - 1.3 mg/dL) 1.1 Glomerular Filtr Rate (70 - 80) 52.7 L Glucose (70 - 110 mg/dL) 106 POC Glucose (70 - 110 MG/DL) 158 H Calcium (8.0 - 10.5 mg/dL) 8.2 Troponin I High Sens (0 - 34 ng/L) 593 *H 541 * H 607 *H LDL Cholesterol Measurd (0 - 100 mg/dL) 50.8 Laboratory Tests 06/10 1740 Coagulation INR (0.8 - 1.2) 1.1 PTT ([place]) (25.0 - 39.5 Seconds) 29.0 PT Patient/Control Mix (9.3 - 12.9 SECONDS) 11. 9 Laboratory Tests 06/10 1730 Hematology WBC (4.5 - 11.0 x10 3/uL) 10.0 RBC (3.54 - 5.02 x10 6/uL) 3.05 L Hgb (11.0 - 15.0 g/dL) 7.3 L Hct (33.0 - 45.0 %) 24.2 L MCV (81.0 - 99.0 fL) 79.3 L MCH (27.0 - 33.0 pg) 23.9 L MCHC (33.0 - 37.0 g/dL) 30.2 L RDW (11.5 - 14.5 %) 24.9 H Plt Count (150 - 400 x10 3/uL) 262 MPV (7.0 - 9.0 fL) 9.0 Neut % (Auto) (56.0 - 77.0 %) 79.0 H Lymph % (Auto) (14.0 - 32.0 %) 15.0 Benzie % (Auto) (4.8 - 9.0 %) 4.0 L Eos % (Auto) (0.3 - 3.7 %) 0.9 Baso % (Auto) (0.0 - 2.0 %) 0.7 Neut # (Auto) (2.0 - 7.6 x10 3/uL) 7.92 H Lymph # (Auto) (1.0 - 3.8 x10 3/uL) 1.50 Benzie # (Auto) (0.1 - 0.8 x10 3/uL) 0.40 Eos # (Auto) (0.0 - 0.2 x10 3/uL) 0.09 Baso # (Auto) (0.0 - 0.2 x10 3/uL) 0.07 Abs Immat Gran (auto) (0.00 - 0.03 x10 3/uL) 0. 04 H Add Manual Diff NO Immature Gran % (0.0 - 2.0 %) 0.4 Nucleated RBC % (0 - 0 %) 0.0 Nucleated RBCs # (Man) (0.0 - 0.1 x10 3/uL) 0.0 0 Radiology data: Recent Impressions: RADIOLOGY - XR CHEST 1 V 06/10 171 Report Impression - Status: SIGNED Entered: 06/10/2022 895 IMPRESSION: Trace right pleural effusion/atelectasis. Mild cardiomegaly. Impression By: BrittanyVBiHllary Chau ULTRASOUND - DOP ART SALES REPRESENTATIVE TRAINEE LEVEL LENA 06/10 7796 Report Impression - Status: SIGNED Entered: 06/10/2022 1920 IMPRESSION: 1. The presence of monophasic flow in both commo n femoral arteries would suggest a mild degree of inflow impairment . It is noted there is strong monophasic flow in both common f emoral arteries. 2. 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 T here is good monophasic flow in the mid right superficial fem oral artery probably related to collaterals. 3. Overall, there is probable moderate vascular disease on the right including inflow impairment and proximal s uperficial femoral artery disease. There is also probable mild runo ff disease. 4. Stent is noted in the region of the left comm on femoral artery which appears to be patent. 5. Stent is noted in the left popliteal artery w hich appears to be patent. 6. Good strong monophasic left posterior tibial waveforms are noted which would indicate there is good flow through the stents and adequate vascular ization of the left lower extr emity. There is overall probable mild multilevel obstructive vas cular disease involving the left lower extremity Please correlate these findings with clinical in formation, clinical examination, and ankle -- brachial ratios. Impression By: [email or web address] - Hillary Sneed Results: labs reviewed, vital signs reviewed, vi maria r signs stable, current med profile rev'd Treatment Prophylaxis Treatment Prophylaxis Oxygen: room air Diagnosis, Assessment Plan Plan discussed with: patient, admitting physicia n, consultants, nurse Code Status/Resusc. Discussion Code status: full code Free Text DxA P Notes Free Text DxA P Notes: Assessment and Plan: - Severe Left LE PVD. - Left LE pain due to Severe PVD. - Elevated Troponin due to Demand Ischemia. - Acute on chroninc Blood Loss Anemia. - HX of HTN, HLD, DM, CVA, PAD. - Smoker. PLan: Floor. Consult cardiology for Elevated troponin. Vascular for PVD. Monitor H H. Pain meds. Antiemetics. Pain management consult. FOllow labs and repalce as needed. Nicotine patch. Continue Xeralto and Plavix. continue Home meds. PT and OT. Monitor. Jonathon Valenzuela 06/12/22 6776: Attestations Physician Attestation Agree w/findings plan: Patient seen and examined, I agree with the findings and plans as documented by Bryant Zheng NP Electronically Signed by Bryant Zheng [facility] on 01/24 at 0705 Electronically Signed by Jonathon Valenzuela MD on 0 06/12/22 at 1855 [facility] #:[id number] END OF REPORT 2022-06-10 17:12:00-00:00 [facility] ([facility]) EMERGENCY PROVIDER REPORT REPORT#:[id number] REPORT STATUS: Signed DATE:06/10/22 TIME: 1711 PATIENT: MANJIT NESS UNIT #: [id number] ROOM/BED: [place] [address] AGE: 72 SEX: F PCP PHYS: Ariadne Sheikh NP SERVICE AUTHOR: Elena Trent APR FUR CLIPPER * ALL edits or amendments must be made on the Circular/computer document * Elena Trent 06/10/22 1712: HPI-General Illness Free Text HPI Notes Free Text HPI Notes 72-year-old female with PMH of HTN, HLD, DM, CVA , PAD who is status post LLE angiogram with stenting that occurred on 06/06/2022 presents to the ER with chief complaint of BLE pain, per tickly from her knees down to her feet that is chronic in nature, improved for [address] atus post her recent procedure and has been present again for the past 2 days. She also developed a left-sided headache around 3 AM today a nd so she was seen at [facility]. While there she underwent a CT scan of her head/brain that s howed a old right lacunar infarct, otherwise nonaction able and she was noted to have a hemoglobin level of 4.6. She received 1 unit of PRBCs transf usion, hemoglobin improved to 7.4 with plans for admission. Patient daughter requested to leave AMA due to frustration with the wait time for an inpatient bed. Patient denies any recent F/C, congestion, CP, palpitations , SOB, back pain, abdominal pain, vomiting, diarrhea , melena/hematochezia, weakness, dizziness or sy ncope. General Initial Greet Date/Time 06/10/22 1502 PCP ariadne sheikh NP-pcp caro-vascular surgeon Presentation Chief Complaint __ (ble pain) Hx Obtained From Patient, Daughter Review of Systems ROS Statements All systems rev neg except as marked. Free Text ROS Notes Free Text ROS Notes ble pain Past Medical History - Adult Stated Complaint BILATERAL LEG PAIN,WEAKNESS Allergies Coded Allergies: bee venom protein (honey bee) (Severe, HIVES 03/25) Penicillins (HIVES 04/13/22) Home Medications Reported Medications rOPINIRole (REQUIP) 4 MG PO BID LISINOPRIL (ZESTRIL) 10 MG PO DAILY ATORVASTATIN (LIPITOR) 40 MG PO DAILY hydrOXYzine HCL (ATARAX) 25 MG PO Q6H PRN ALLERG IES metFORMIN (GLUCOPHAGE) 1,000 MG PO BID CLOPIDOGREL (PLAVIX) 75 MG PO DAILY RIVAROXABAN (XARELTO) 15 MG PO DAILY ALBUTEROL (PROVENTIL HFA 90 MCG/ACT 6.7 GM) 1 PU FF INH RTQ4H PRN PRN COPD ALBUTEROL (ALBUTEROL 2.5 MG/3 ML (75mL)) 2.5 MG NEB RTQ4H PRN PRN WHEEZING Past Medical History: Reports: COPD, Coronary artery disease, Diabetes mellitus, Hypertension, Dyslipidemia, Periph arterial disease, Prior [place]. Denies: Atrial fibrillation, Congestive heart failure. Past Surgical History: Reports: Vascular procedure, PCI. Alcohol Use Denies EtOH use Drug Use Denies recreational drugs Smoking status for patients 13 years old or olde r: Current every day smoker Physical Exam Vital Signs Vital Signs First Documented: Result Date Time Pulse Ox 99 06/10 1510 B/P 128/68 06/10 1510 B/P Mean 88 06/10 1510 O2 Delivery Room air 06/10 1510 Temp 36.6 06/10 1510 Pulse 87 06/10 1510 Resp 18 06/10 1510 Last Documented: Result Date Time Pulse Ox 99 06/10 1510 B/P 128/68 06/10 1510 B/P Mean 88 06/10 1510 O2 Delivery Room air 06/10 1510 Temp 36.6 06/10 1510 Pulse 87 06/10 1510 Resp 18 06/10 1510 Review of Vital Signs Reviewed Free Text PE Notes Free Text PE Notes Gen: Appears chronically ill , intermittently uncomfortable, cooperative, smells heavily of tobacco smoke Head: Normocephalic Eyes: Pupils midline, sclera NL Throat: Moist mucous membranes, handling secreti ons. Airway patent. Neck: FROM, supple Lungs: CTA all lobes. Respirations NL. N o wheezing, No rhonchi, No dyspnea. No stridor or accessory muscle use. Heart/Chest: Regular rhythm, rate. No murmurs. Abd: Soft, non-tender, non-distended, no rebound, guarding, or peritoneal sxs. Ext: no obvious deformity. t race, [facility] edema to BL feet, DP and PT pulses weak on the R, strong on the L. + sensation and brisk cap refill. calves supple and NT Back: Painless ROM Neuro: awake and alert, speech NL for age, behav ior age-appropriate. Skin: color NL, normal temperature, intact, no v isible rashes Interpretation Diagnostics Lab Results Interpretation Results Laboratory Tests 06/10/221739: [Embedded Image Not Available] 06/10/22 1730: [Embedded Image Not Available] Laboratory Tests: 06/100 1740 1730 Chemistry Sodium (134 - 147 mEq/L) 134 Potassium (3.4 - 5.0 mEq/L) 4.4 Chloride (100 - 108 mEq/L) 105 Carbon Dioxide (21 - 33 mEq/l) 23 Anion Gap (0 - 20) 10 BUN (7 - 18 mg/dL) 24 H Creatinine (0.6 - 1.3 mg/dL) 1.1 Glomerular Filtr Rate (70 - 80) 52.7 L Glucose (70 - 110 mg/dL) 106 Calcium (8.0 - 10.5 mg/dL) 8.2 Troponin I High Sens (0 - 34 ng/L) 607 *H LDL Cholesterol Measurd (0 - 100 mg/dL) 50.8 Coagulation INR (0.8 - 1.2) 1.1 PTT (Angelia) (25.0 - 39.5 Seconds) 29.0 PT Patient/Control Mix (9.3 - 12.9 SECONDS) 11. 9 Hematology WBC (4.5 - 11.0 x10 3/uL) 10.0 RBC (3.54 - 5.02 x10 6/uL) 3.05 L Hgb (11.0 - 15.0 g/dL) 7.3 L Hct (33.0 - 45.0 %) 24.2 L MCV (81.0 - 99.0 fL) 79.3 L MCH (27.0 - 33.0 pg) 23.9 L MCHC (33.0 - 37.0 g/dL) 30.2 L RDW (11.5 - 14.5 %) 24.9 H Plt Count (150 - 400 x10 3/uL) 262 MPV (7.0 - 9.0 fL) 9.0 Neut % (Auto) (56.0 - 77.0 %) 79.0 H Lymph % (Auto) (14.0 - 32.0 %) 15.0 Benzie % (Auto) (4.8 - 9.0 %) 4.0 L Eos % (Auto) (0.3 - 3.7 %) 0.9 Baso % (Auto) (0.0 - 2.0 %) 0.7 Neut # (Auto) (2.0 - 7.6 x10 3/uL) 7.92 H Lymph # (Auto) (1.0 - 3.8 x10 3/uL) 1.50 Benzie # (Auto) (0.1 - 0.8 x10 3/uL) 0.40 Eos # (Auto) (0.0 - 0.2 x10 3/uL) 0.09 Baso # (Auto) (0.0 - 0.2 x10 3/uL) 0.07 Abs Immat Gran (auto) (0.00 - 0.03 x10 3/uL) 0. 04 H Add Manual Diff NO Immature Gran % (0.0 - 2.0 %) 0.4 Nucleated RBC % (0 - 0 %) 0.0 Nucleated RBCs # (Man) (0.0 - 0.1 x10 3/uL) 0.0 0 Recent Impressions: RADIOLOGY - XR CHEST 1 V 06/10 1710 Report Impression - Status: SIGNED Entered: 06/10/2022 182 IMPRESSION: Trace right pleural effusion/atelectasis. Mild cardiomegaly. Impression By: [email or web address] Hillary Sun ULTRASOUND - DOP ART SALES REPRESENTATIVE TRAINEE LEVEL LENA 06/10 182 Report Impression - Status: SIGNED Entered: 06/10/2022 1920 IMPRESSION: 1. The presence of monophasic flow in both commo n femoral arteries would suggest a mild degree of inflow impairment . It is noted there is strong monophasic flow in both common f emoral arteries. 2. 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 T here is good monophasic flow in the mid right superficial fem oral artery probably related to collaterals. 3. Overall, there is probable moderate vascular disease on the right including inflow impairment and proximal s uperficial femoral artery disease. There is also probable mild runo ff disease. 4. Stent is noted in the region of the left comm on femoral artery which appears to be patent. 5. Stent is noted in the left popliteal artery w hich appears to be patent. 6. Good strong monophasic left posterior tibial waveforms are noted which would indicate there is good flow through the stents and adequate vascular ization of the left lower extr emity. There is overall probable mild multilevel obstructive vas cular disease involving the left lower extremity Please correlate these findings with clinical in formation, clinical examination, and ankle -- brachial ratios. Impression By: [email or web address] - Hillary Sneed Lab Imaging Statement Laboratory radiographic studies reviewed and con sidered in the medical decision-making. Point of Care Testing Pulse Oximetry Pulse Ox % 99 On: Room air Interpretation Interpreted by me, Pulse oximetr y normal Time 2042 ECG #1 Interpretation Date 06/10/22 Time 1716 Interpreted by and reviewed by me, ED physician NL ECG Interpretation No STEMI, Adequate tracing Rate 88 Rhythm Atrial fibrillation Re-Evaluation MDM Free Text MDM Notes Free Text MDM Notes Patient with PMH of PAD pres enting with complaint of bilateral leg pain that has been chronic in nature and only transient relief status post stenting to the left lower extremity 4 days ago. Ultrasound rahul rial Dopplers were obtained, noted bilateral flow, no acute obstruction. Trop onin was noted to be elevated with outpatient complaint of chest pain. EKG concerning for atrial fibrillation, no STEMI or acute ischemic findings. Kristal vation could possibly be due to demand ischemia? Hgb while low at 7.3, stable and pt w/ o active blood loss. Vital signs stable, rate controlle d. Cardiology was consulted and discussed patient's presenting symptoms and diagnostic work-up. X-ra y ordered. Patient will be admitted for further care with cardiology. Additional Text Acuity of presenting problems: moderate with exa cerbation Systemic symptoms present: Yes Diagnosis: pad, elevated troponin, a fib Ruled out diagnoses: STEMI, pneumonia, bronchiti s, peripheral arterial obstruction External notes reviewed: Yes Reviewed external notes: [facility] from [facility] including serum lab results and CT head/brain results Reviewed current results: Lorne light, with noted elevated troponin decreased hemoglobin Independent historian needed: Yes Discussion with other clinician re: test or ravi gement: Yes, case d/w cardiology Hospitalization or transfer required: Yes Procedure planned or performed: no Rx drug management: n/a, pt admitted Did patient require parenter al controlled substance or high risk medication: Yes Social determinants of health impacting care/macy atment: no Re-Evaluation/Progress #1 Text/Dict Note At bedside to reassess patient. Patient appears much more comfortable, sitting upright in bed with legs elevated. She exhibits no visible discomfort or distress. Pt reports her ro n has improved. I discussed all current results and admission plan of care. Josephine ent and patient's daughter at bedside verbalized an understanding. All questions answered. Time of Re-Eval 182 Re-Eval Status Improved ED Course Medication(s) Ordered Medication(s) Ordered: Central Nervous System Agents Sig/Serenity Start time Last Medication Dose Route Stop Time Status Admin Acetaminophen 650 MG Q4H PRN PRN 06/10 1900 AC PO 06/15 1305 Hydrocodone Bitart/ 1 TAB Q4H PRN PRN 06/10 190 0 AC 06/11 Acetaminophen PO 06/15 1305 0228 Morphine Sulfate 4 MG Q4H PRN PRN 06/10 1900 AC 06/10 IV 06/15 1305 2326 Morphine Sulfate 4 MG X1ED STA 06/10 1647 DC IV 06/10 1648 1732 Electrolytic, Caloric, And Nicki Sig/Serenity Start time Last Medication Dose Route Stop Time Status Admin Dextrose/Water 125 ML ASDIR PRN 06/10 1900 CKD IV 06/15 1305 Dextrose/Water 250 ML ASDIR PRN 06/10 1900 CKD IV 06/15 1305 Gastrointestinal Drugs Sig/Serenity Start time Last Medication Dose Route Stop Time Status Admin Ondansetron HCl 4 MG Q6H PRN PRN 06/10 1900 AC 06/10 IV 06/15 1305 2326 Ondansetron HCl 4 MG X1ED STA 06/10 1647 DC IV 06/10 1648 1732 Hormones And Synthetic Substit Sig/Serenity Start time Last Medication Dose Route Stop Time Status Admin Insulin Human Lispro 0 AC HS 06/10 2100 AC SUBQ 06/15 0505 Glucagon 1 MG ASDIR PRN 06/10 1900 AC IM 06/15 1305 Consultation Consultation Referral/Consult Name Tracee Kirkpatrick MD Community Health Educator Called Cardiology Requested Call Time 183 Requested Call Date 06/10/22 Call Returned Call returned Call Returned Time 183 Call Returned Date 06/10/22 Community Health Educator Will see patient, DISCUSSED SX, DIAG NOSTIC RESULTS, COPY OF EKG SENT Patient Discharge Departure Vital Signs/Condition Vital Signs First Documented: Result Date Time Pulse Ox 99 06/10 1510 B/P 128/68 06/10 1510 B/P Mean 88 06/10 1510 O2 Delivery Room air 06/10 1510 Temp 36.6 06/10 1510 Pulse 87 06/10 1510 Resp 18 06/10 1510 Last Documented: Result Date Time Pulse Ox 99 06/10 1510 B/P 128/68 06/10 1510 B/P Mean 88 06/10 1510 O2 Delivery Room air 06/10 1510 Temp 36.6 06/10 1510 Pulse 87 06/10 1510 Resp 18 06/10 1510 All vital signs available at the time of this en try have been reviewed. Condition Guarded Clinical Impression Clinical Impression Primary Impression: Lower extremity pain, bilate ral Secondary Impressions: Anemia, Elevated troponin Disposition Decision Admit Admit Physician Name Jonathon Valenzuela MD Admit Physician Hospitalist Request Time 183 Request Date 06/10/22 )( Admission Accepts Yes )( Accepted Time 1830 )( Accepted Date 06/10/22 Call Information will see patient, agrees with plan, PER [facility], [facility] Discharge/Care Plan Counseled Regarding Diagnosi s, Lab results, Imaging studies, Need for admission Admit Note I have spoken with the patie nt and/or caregivers. I have explained the patient's condition, diagnoses and macy atment plan based on the information available to me at this time. I have answered the patient's and/ or caregiver's questions and addressed any concerns. The patient and/or careg william have as good an understanding of the patient 's diagnosis, condition and treatment plan as can be expected at this point. The patient has been stabilized within the capability of the emergency department. The patient wi ll be transported for further care and management or will be moved to an observation or inpatient service. I have communicated with the staff or medical p ractitioner taking over this patient's care. John Saavedra 06/11/22 1039: Patient Discharge Departure Supervising Physician Note MidLv Saw Pt Alone I have reviewed the PA/[facility]'s note and plan of car e. I was available for consultation as needed at al l times during the patient's visit in the emergency department. I agree with the clinical impression , plan and disposition. at 2053 Electronically Signed by John Saavedra MD on 01/24 at 1040 RPT #:[id number] END OF REPORT 2022-06-06 18:28:00-00:00 [facility]) Operative Note - Full REPORT#:[id number] REPORT STATUS: Signed DATE:06/06/22 TIME: 1827 PATIENT: MANJIT NESS UNIT #: [id number] ROOM/BED: : 48 AGE: 72 SEX: F ATTEND: Roberto Ghosh MD ADM AUTHOR: Rayne Ghosh MD * ALL edits or amendments must be made on the el [employer]/computer document * Operative Report ORM Surgeries: Surgery Date and Time: 06/06/2022 1430 Primary Procedure: ANGIOGRAM LEFT LEG,BALLOON A NGIOPLASTY Start date: 06/06/22 Start time: 1630 Pre-procedure diagnosis: 1. Atherosclerosis of washoe arteries left leg w ith rest pain 2. Left leg criticallimb ischemia 3. Left superficial femoral artery and popliteal artery occlusion Post-procedure diagnosis: same Procedures performed: 1. Percutaneous ultrasound-guided active access right common femoral artery with images maintained [place] record [id number] 2. Bilateral lower extremity arteriogram 89278 3. Percutaneous pharmacomechanical throm bectomy with Angiojet 6 Solent of left superficial femoral artery, popliteal artery, an d tibioperoneal artery with power-pulse/TPA 90174, 18382 4. Placement of popliteal artery stent graft 5 m m x 5 cm Viabahn with post angioplasty 96115 5. Left tibioperoneal artery stents, 3.5 mm - 6 mm Intact Tack stents X 6 with 3.5 mm post angioplasty, pos terior tibial artery 2.5 mm balloon angioplasty with placement of 300 ug of nitroglycerine 77856 6. Left anterior tibial artery 2.5 mm balloon an d proximal 3.5 mm balloon angioplasty proximally [id number] Technique/Procedure: The patient was brought into the operative room and prepped and draped in the usual sterile manner. Percut aneous ultrasound-guided active access was obtained to the right common femoral artery with a microc atheter system and exchanged over a Glidewire to a 6 Serbian 10 cm sheath. An Omni Flush cath was placed in the abdominal aorta and the Cath was then pulled out aortic bifurcation and the Omni Flush cath was then ext ended down to the left common femoral artery over a Glidewire and the left lower extremity arteriogr am was completed. This time a Glidewire was used to cross the occluded stents. The sheath was exchanged to a 6 Serbian 45 cm sheath which was advanced across the common femoral artery. Francois cross catheter was used to cross the stenoses in the posterior tibial artery with multifocal areas of thrombus and di ffuse stenosis distally noted today of the plantar artery. A glide wire was placed and 6 Fr Solent Angiojet was used to lace 10 mg inthe thrombus with power pulse. A fter 20 minutes, percutaneous mechanical thrombectomy was then completed of th e superficial femoral artery, popliteal artery and tibioperoneal trunk. After several passes, there was residual thrombus in the distal extent o f the left popliteal artery stent with severe outflow disease extensing into the tibiop eroneal trunk. The wire was exchanged to a 0.014 wire and a 5 mm X 5 cm viab dom stent was deployed in the remaining politeal artery with 5 mm balloon john oplasty in the stent and 4 mm drug coated balloon angioplasty of the tibiopero rosibel trunk. Persistent tibioerpeneal trunk stenosis was treated with 6 X 3.5-6 mm Itact tack stent with 3.5 mm balloon angioplasty. The posterior tibial artery residual thrombus was treated with suction thrombectomy with a navicro ss catheter. Post angioplasty was completed with a 2.5 mm balloon and 300 ug o f nitroglycerine was placed inthe plantar and posterior tibial arteies. Christina nico, suction thombectomy was completed of the peroneal artery ostium and entire anterior tibial artery. The anterior tibial artery was then angioplastied wi th a 2.5 mm balloon and proximally at the ostium with a 3.5 mm b alloon. Nitroglycerine was then placed in the anterior tibial artery, 300 ug. The sheath was then pulled b ack tothe right external iliac artery and right leg arteriorgam was completed. A n angioseal device was used to close the arteriotomy withuot difficulty. The patient tolerated the pr ocedure well. There were no complications. The patient was stable on dischar ge to the PACU. Primary Surgeon: Dr. Rayne Ghosh Liquefaction And Regasification Helper(s): none Anesthesia: general anesthesia Operative findings: The right common femoral artery has stenosis to 50%. The right superficial femoral artery is occluded. The right profunda f emoris artery is patent with reconstitution of the popliteal artery with flow distally to the popliteal artery to the anterior tibia l artery, tibial trunk peroneal and posterior tibial arteries. The posterior tibial arteries are main outflow to the foot. Anterior tibial artery patent to the dorsalis pedis with diffuse mild stenosis. The peroneal artery is patent to branches at the mal leolus. Left lower extremity arterio gram demonstrates patent left common femoral artery and profunda femoris and occluded superficial fe moral artery. There is reconstitution of the anterior tibial artery wit h thrombus of the anterior tibial artery. The tibial trunk is partially pat ent with thrombus in the posterior tibial artery and peroneal arteries no nighat. The distal plantar arteries and dorsalis pedis are patent. There ma y be thrombus within the plantar arteries on initial angiography. Complications: none Estimated blood loss in ml's: 200 cc Specimens removed/altered: thrombus Implant(s): stents at 1850 RPT #:[id number] END OF REPORT 2022-06-06 18:08:00-00:00 [facility] Brief Op Note REPORT#:[id number] REPORT STATUS: Signed DATE:06/06/22 TIME: 1808 PATIENT: MANJIT NESS UNIT #: [id number] ROOM/BED: : 48 AGE: 72 SEX: F ATTEND: Roberto Ghosh MD ADM AUTHOR: Rayne Ghosh MD * ALL edits or amendments must be made on the el ectronic/computer document * Op/Inv Proc Note - Brief ORM Surgeries: Surgery Date and Time: 06/06/2022 1430 Primary Procedure: ANGIOGRAM LEFT LEG,BALLOON A NGIOPLASTY Pre-procedure diagnosis: 1. Atherosclerosis of washoe arteries left leg w ith rest pain 2. Left leg criticallimb ischemia 3. Left superficial femoral artery and popliteal artery occlusion Post-procedure diagnosis: same as pre procedure dx Procedures performed: 1. Percutaneous ultrasound-guided active access right common femoral artery with images maintained for record [id number] 2. Bilateral lower extremity arteriogram 92652 3. Percutaneous pharmacomechanical throm bectomy with Angiojet 6 Solent of left superficial femoral artery, popliteal artery, an d tibioperoneal artery with power-pulse/TPA 60006, 04774 4. Placement of popliteal artery stent graft 5 m m x 5 cm Viabahn with post angioplasty 54386 5. Left tibioperoneal artery stents, 3.5 mm - 6 mm Intact Tack stents X 6 with 3.5 mm post angioplasty, pos terior tibial artery 2.5 mm balloon angioplasty with placement of 300 ug of nitroglycerine 96387 6. Left anterior tibial artery 2.5 mm balloon an d proximal 3.5 mm balloon angioplasty proximally [id number] Primary Surgeon: Dr. Rayne Ghosh Liquefaction And Regasification Helper(s): none Anesthesia: general anesthesia Findings: The right common femoral artery has stenosis to 50%. The right superficial femoral artery is occluded. The right profunda f emoris artery is patent with reconstitution of the popliteal artery with flow distally to the popliteal artery to the anterior tibia l artery, tibial trunk peroneal and posterior tibial arteries. The posterior tibial arteries are main outflow to the foot. Anterior tibial artery patent to the dorsalis pedis with diffuse mild stenosis. The peroneal artery is patent to branches at the mal leolus. Left lower extremity arterio gram demonstrates patent left common femoral artery and profunda femoris and occluded superficial fe moral artery. There is reconstitution of the anterior tibial artery wit h thrombus of the anterior tibial artery. The tibial trunk is partially pat ent with thrombus in the posterior tibial artery and peroneal arteries no nighat. The distal plantar arteries and dorsalis pedis are patent. There ma y be thrombus within the plantar arteries on initial angiography. Complications: none Estimated blood loss in ml's: 200 cc Specimens removed/altered: thrombus at 1850 RPT #:[id number] END OF REPORT 2022-06-06 18:01:00-00:00 [facility] ([facility]) Brief Discharge Note w/Med Rec REPORT#:[id number] REPORT STATUS: Signed DATE:06/06/22 TIME: 1801 PATIENT: MANJIT NESS UNIT #: [id number] ROOM/BED: : 48 AGE: 72 SEX: F ATTEND: Roberto Ghosh MD ADM AUTHOR: Rayne Ghosh MD * ALL edits or amendments must be made on the Circular/computer document * Med Rec Med Rec Discharge meds: Continue taking these medications: metFORMIN (GLUCOPHAGE) (Unknown Strength) TAB 1,000 MILLIGRAM ORAL TWICE DAILY. CLOPIDOGREL (PLAVIX) 75 MG TAB 75 MILLIGRAM ORAL DAILY. rOPINIRole (REQUIP) 2 MG TAB 4 MILLIGRAM ORAL TWICE DAILY. LISINOPRIL (ZESTRIL) 10 MG TAB 10 MILLIGRAM ORAL DAILY. ATORVASTATIN (LIPITOR) 40 MG TAB 40 MILLIGRAM ORAL DAILY. hydrOXYzine HCL (ATARAX) 25 MG TAB 25 MILLIGRAM ORAL EVERY 6 HOURS. as needed for ALLERGIES RIVAROXABAN (XARELTO) 15 MG TAB 15 MILLIGRAM ORAL DAILY. ALBUTEROL (PROVENTIL HFA 90 MCG/ACT 6.7 GM) 90 M CG INHALER 1 PUFF INHALATION RT - EVERY 4 HOURS NEEDED. as needed for COPD ALBUTEROL (ALBUTEROL 2.5 MG/3 ML (75mL)) 2.5 MG/ 3 ML (0.083 %) NEB 2.5 MILLIGRAM NEB RT - EVERY 4 HOURS NEEDED. as needed for WHEEZING Objective Results Findings/Data: Laboratory Tests: 06/06 06/06 06/06 1738 1130 1125 Chemistry Sodium (134 - 147 mEq/L) 134 Potassium (3.4 - 5.0 mEq/L) 4.0 Chloride (100 - 108 mEq/L) 105 Carbon Dioxide (21 - 33 mEq/l) 28 Anion Gap (0 - 20) 5 BUN (7 - 18 mg/dL) 14 Creatinine (0.6 - 1.3 mg/dL) 1.0 Glomerular Filtr Rate (70 - 80) 59.1 L Glucose (70 - 110 mg/dL) 87 POC Glucose (70 - 110 MG/DL) 148 H 86 Calcium (8.0 - 10.5 mg/dL) 8.6 Coagulation INR (0.8 - 1.2) 1.7 H PT Patient/Control Mix (9.3 - 12.9 SECONDS) 19. 0 H Hematology WBC (4.5 - 11.0 x10 3/uL) 9.2 RBC (3.54 - 5.02 x10 6/uL) 4.50 Hgb (11.0 - 15.0 g/dL) 9.4 L Hct (33.0 - 45.0 %) 30.7 L MCV (81.0 - 99.0 fL) 68.2 L MCH (27.0 - 33.0 pg) 20.9 L MCHC (33.0 - 37.0 g/dL) 30.6 L RDW (11.5 - 14.5 %) 21.3 H Plt Count (150 - 400 x10 3/uL) 481 H MPV (7.0 - 9.0 fL) 9.0 Neut % (Auto) (56.0 - 77.0 %) 64.1 Lymph % (Auto) (14.0 - 32.0 %) 25.0 Benzie % (Auto) (4.8 - 9.0 %) 7.0 Eos % (Auto) (0.3 - 3.7 %) 2.6 Baso % (Auto) (0.0 - 2.0 %) 1.0 Neut # (Auto) (2.0 - 7.6 x10 3/uL) 5.90 Lymph # (Auto) (1.0 - 3.8 x10 3/uL) 2.30 Benzie # (Auto) (0.1 - 0.8 x10 3/uL) 0.64 Eos # (Auto) (0.0 - 0.2 x10 3/uL) 0.24 H Baso # (Auto) (0.0 - 0.2 x10 3/uL) 0.09 Abs Immat Gran (auto) (0.00 - 0.03 x10 3/uL) 0. 03 Add Manual Diff NO Immature Gran % (0.0 - 2.0 %) 0.3 Nucleated RBC % (0 - 0 %) 0.0 Nucleated RBCs # (Man) (0.0 - 0.1 x10 3/uL) 0. 00 Polychromasia 1+ Hypochromasia 2+ Poikilocytosis 1+ Anisocytosis 3+ Microcytosis 2+ Macrocytosis 2+ Schistocytes FEW Radiology data: Recent Impressions: RADIOLOGY - XR CHEST 1 V 06/06 1126 Report Impression - Status: SIGNED Entered: 06/06/2022 1247 IMPRESSION: No acute cardiopulmonary findings. Impression By: Hillary Winston VS/I O Last Documented: Result Date Time Pulse Ox 100 06/06 1731 B/P 181/77 06/06 1731 O2 Delivery Simple mask 06/06 173 O2 Flow Rate 5 06/06 1731 Temp 98.4 06/06 1731 Pulse 92 06/06 1731 Resp 21 06/06 1731 Brief Discharge Note w/Med Rec Discharge to: Home/Self Care Discharge diagnosis: atherosclerosis of washoe arteries left leg with rest pain Pt. condition on discharge: stable Additional Discharge Routines: Attending Follow- Up, Wound/Dressing Care Diet: Resume Home Diet/Feeds Activity: No Strenuous Activity Wound/dressing care: Clean wound daily, Do not s ubmerge incision, Keep wound clean and dry, OK to shower tomorrow Follow-up Appointments Attending Physician: Attending Physician: Rayne Ghosh MD Attending physician follow up timeframe: In 1-2 weeks at 1802 RPT #:[id number] END OF REPORT 2022-04-15 15:30:00-00:00 [facility] ([facility]) Cardiology Progress Note REPORT#:[id number] REPORT STATUS: Signed DATE:04/15/22 TIME: 1529 PATIENT: MANJIT NESS UNIT #: [id number] ROOM/BED: [facility] : 48 AGE: 72 SEX: F ATTEND: Vonda Bell ADM AUTHOR: Elza Nash DEHAIRER * ALL edits or amendments must be made on the Circular/[employer] document * Subjective Patient reports: No: complaints. Objective General VS/I O: 24 hour I O ending at 0700: 04/15 0700 04/14 1900 Intake Total 120 100 Output Total 200 600 Balance -80 -500 Intake, Oral 120 100 Number Voids 2 Output, Urine 200 600 Vital Signs: Date Time Temp Pulse Resp B/P B/P Pulse O2 O2 F low FiO2 Mean Ox Delivery Rate 04/15 1110 36.6 70 16 127/53 77.9 93 Room air 04/15 0711 36.7 73 16 100/42 61.6 96 Room air 04/15 0430 36.4 71 16 109/49 69.1 94 Room air 04/14 2329 36.5 94 16 126/57 80.3 97 Room air 04/14 1900 64 15 151/68 100 Room air 04/14 1845 74 15 153/71 92 Room air 04/14 1840 86 15 140/64 100 Simple 10 mask 04/14 1835 76 15 143/67 100 Simple 10 mask 04/14 1830 76 16 133/61 100 Simple 10 mask 04/14 1825 36.1 83 15 144/66 100 Simple 10 mask PATIENT WEIGHT: Weight (lb): 110 Weight (oz): 0.17 Weight (kg): 49.900 Medications: Active Meds + DC'd Last 24 Hrs Tizanidine HCl (ZANAFLEX) 2 MG Q6H PRN PRN PO (D CD) Tramadol HCl (ULTRAM) 50 MG Q6H PRN PRN PO (DCD) Atorvastatin Calcium (LIPITOR) 40 MG 2100 PO (DC D) Fentanyl Citrate (SUBLIMAZE) 100 MCG PACU Q10MI N PRN PRN IV (DC) Fentanyl Citrate (SUBLIMAZE) 50 MCG PACU Q10MIN PRN PRN IV (DC) Hydralazine HCl (APRESOLINE) 5 MG PACU Q10MIN AR N PRN IV (DC) Hydrocodone Bitart/Acetaminophen (NORCO 5/325) 1 TAB PACU ONCE PO (DC) Hydromorphone HCl (DILAUDID) 1 MG PACU Q10MIN AR N PRN IV (DC) Hydromorphone HCl (DILAUDID) 0.5 MG PACU Q5MIN P RN PRN IV (DC) Insulin Human Lispro (HUMALOG) 0 PACU ONCE PRN S UBQ (DC) Labetalol HCl (LABETALOL HCL) 5 MG PACU Q10MIN P RN PRN IV (DC) Meperidine HCl (MEPERIDINE HCL/PF) 12.5 MG PACU ONCE PRN IV (DC) Morphine Sulfate (morphine SULFATE) 2 MG PACU Q1 0MIN PRN PRN IV (DC) Nitroglycerin (NITRO-DUR 0.2MG/HR) 1 PATCH DAILY TRANSDERM (DCD) Ondansetron HCl (ZOFRAN) 4 MG PACU ONCE PRN IV ( DC) Ropivacaine (NAROPIN 0.5% 150 MG/30mL) 150 MG DIR PRN LOCAL (DC) Tramadol HCl (ULTRAM) 50 MG PACU ONCE PO (DC) Fentanyl Citrate (SUBLIMAZE) 0 .STK-MED ONE .ROU TE (DC) Enoxaparin Sodium (lovENOX) 30 MG Q24H SUBQ (DCD ) Phenylephrine HCl (ALEX-SYNEPHRINE 1000MCG/NS 10M L INJ) 0 .STK-MED ONE I- RAMONA (DC) Ephedrine Sulfate (ePHEDrine sulfate) 0 .STK-MED ONE .ROUTE (DC) Heparin Sodium (HEPARIN SODIUM) 0 .STK-MED ONE . ROUTE (DC) Verapamil HCl (ISOPTIN) 5 MG .STK-MED ONE IV (DC ) Celecoxib (CeleBREX) 200 MG DAILY PO (DCD) Aspirin (ASPIRIN) 81 MG DAILY PO (DCD) Insulin Human Lispro (HUMALOG) 0 AC HS SUBQ (DCD ) Lisinopril (ZESTRIL) 10 MG BEDTIME PO (DCD) Dextrose/Water (DEXTROSE 10% IN WATER) 125 ML DIR PRN IV (DCD) Dextrose/Water (DEXTROSE 10% IN WATER) 250 ML DIR PRN IV (DCD) Glucagon (GLUCAGON) 1 MG ASDIR PRN IM (DCD) Lidocaine (LIDODERM) 1 PATCH Q24H TOPICAL (DCD) Dextrose/Water (DEXTROSE 10% IN WATER) 125 ML DIR PRN IV (DC) Dextrose/Water (DEXTROSE 10% IN WATER) 250 ML DIR PRN IV (DC) Glucagon (GLUCAGON) 1 MG ASDIR PRN IM (DC) Clopidogrel Bisulfate (Plavix) 75 MG DAILY PO (D CD) Ropinirole HCl (REQUIP) 4 MG BID PO (DCD) Acetaminophen/Codeine Phosphate (TYLENOL W CODEI NE NO.3) 1 TAB Q6H PRN PRN PO (DCD) Acetaminophen (TYLENOL) 650 MG Q6H PRN PRN PO (D CD) Acetaminophen (TYLENOL EXTRA STRENGTH) 1,000 MG PREOP ONCALL PO (DCD) Lactated Ringer's (LACTATED RINGERS) 1,000 ML AR EOP ONCALL IV (DCD) Lidocaine HCl (LIDOCAINE HCL/PF) 2 ML PREOP ONCA LL LOCAL (DCD) Lidocaine HCl (LIDOCAINE HCL/PF) 2 ML PREOP ONCA LL LOCAL (DCD) Sodium Chloride (SODIUM CHLORIDE 0.9%) 500 ML AR EOP ONCALL IV (DCD) Sodium Chloride (SODIUM CHLORIDE 0.9%) 500 ML AR EOP ONCALL IV (DCD) Sodium Chloride (SODIUM CHLORIDE 0.9%) 1,000 ML PREOP ONCALL IV (DCD) Sodium Chloride (SODIUM CHLORIDE) 5 ML ASDIR PRN IV (DCD) Sodium Chloride (SODIUM CHLORIDE) 10 ML ASDIR AR N IV (DCD) Sodium Chloride (SODIUM CHLORIDE 0.9%) 250 ML DIR PRN IV (DCD) Physical Exam General appearance: alert, awake, oriented, no a cute distress, pleasant, conversational Neck: non-tender, no JVD Cardiovascular: CV assessment: regular rate and rhythm Respiratory: decreased breath sounds, on oxygen, no distress Abdomen: soft, non-tender, normal bowel sounds, no distention, no guarding Genitourinary: no flank pain Lower extremity: LE assessment: abnormal pedal pulse (Left foot) , abnormal peripheral pulse ( left foot), no edema Neuro/BENZENE WASHER: alert, normal speech Skin: dry, intact, normal color Psychiatry: normal affect, normal mood Results Findings/Data: Laboratory Tests 04/15 04/15 04/14 04/14 1103 0709 2109 1833 Chemistry POC Glucose (70 - 110 MG/DL) 100 156 H 119 H 10 3 Results: no new labs, vital signs reviewed, rhyt personally rev'd Telemetry Interpretation: sinus rhythm Diagnosis, Assessment Plan Problem List/A P: 1. Peripheral vascular disease 2. Coronary artery disease 3. Tobacco abuse counseling Free Text DxA P Notes Free Text DxA P Notes: This is a 72-year-old female with past medical h istory of coronary artery disease with prior PCI and stents, diabetes gloria itus, hypertension, hyperlipidemia, lifelong smo ker, known severe peripheral vascular disease, COPD who has been having left lower extremity pain. S he was taken for elective peripheral angiogram and found to have severe pe ripheral vascular disease bilaterally, status post balloon angioplasty wit h partial flow return on the left SFA. Vascular surgery has been consulted. 1. Severe bilateral PVD status post balloon angioplasty with partial kameron w return on the left SFA. Vascular surgery consult - s/p vascular interven tions taken off Plavix and ASA - started on Xarelto s/p vascular intervention: -Left anterior tibial artery 0.9 laser atherecto my with 2.5 mm balloon angioplasty 51901 -Left anterior tibial artery amd posterior tibial artery percutaneous mechanical thrombectomy with CATRX penumbra device 57873, 3 4621 -Left superficial femoral an d popliteal artery stents, 5 m X 25 cm, 5 mm X 15 cm , 6 mm X 2.5 cm viabahns 42656 -Left Common iliac artery stent 7 mm X 29 mm Vis ipro balloon expandable stent 41860 2. Coronary artery disease with prior PCI/stent No chest Continue medical therapy 3. Tobacco abuse/COPD Strongly encouraged to quit smoking 4. Hypertension Continue lisinopril 5. Diabetes mellitus Manage per admitting physician 6. Hyperlipidemia Continue statin Okay to DC from cardiology. Outpatient follow-up with Dr. Grey in 1-2 weeks at 1539 Electronically Signed by Whit Villareal MD on at 1440 [facility] #:[id number] END OF REPORT 2022-04-15 10:18:00-00:00 [facility] ([facility]) Discharge Summary REPORT#:[id number] REPORT STATUS: Signed DATE:04/15/22 TIME: 1018 PATIENT: MANJIT NESS UNIT #: [id number] ROOM[address]BED: [address] : 48 AGE: 72 SEX: F ATTEND: Vnoda Bell ADM AUTHOR: [place] Cardoso APRN * ALL edits or amendments must be made on the Circular/[employer] document * PCP PCP PCP: PCP: No Primary or Family Physician Discharge to: home General Information Date of admission: Observation Start Date: 04/13/22 Date of admission: 04/14/22 Discharge date: 04/15/22 Discharge diagnosis: severe PVD s/p angioplasty of totally occluded l eft SFA stent and angiogram CAD DM HTN HLD Hospital course: 72 years old female with PMH of CAD with PCI and stent , DM, HTN , HLD severe PVD and smoker is admitted to the hospital for angiopla sty of totally occluded left SFA stent and angiogram which was completed on 04/14/[address] Ghosh. She tolerance procedure well. She was discharged home on xarel to which was called into her pharmacy on file in stable conditions. Consultants: cardiology Pt. condition on discharge: stable Allergies: Allergies: bee venom protein (honey bee) (Coded, Severe, HI VES, 04/13/22) Penicillins (Coded, HIVES, 04/13/22) Med Rec PCP PCP: PCP: No Primary or Family Physician Med Rec Discharge meds: Continue taking these medications: metFORMIN (GLUCOPHAGE) (Unknown Strength) TAB 1,000 MILLIGRAM ORAL TWICE DAILY. Instructions: PT KNOWS TO HOLD FOR PROCEDURE. CLOPIDOGREL (PLAVIX) 75 MG TAB 75 MILLIGRAM ORAL DAILY. rOPINIRole (REQUIP) 2 MG TAB 4 MILLIGRAM ORAL TWICE DAILY. LISINOPRIL (ZESTRIL) 10 MG TAB 10 MILLIGRAM ORAL DAILY. FLUTICASONE PROPIONATE (FLOVENT HFA 44 MCG/ACT) 44 MCG INHALER 2 PUFF INHALATION RT - TWICE DAILY. ATORVASTATIN (LIPITOR) 40 MG TAB 40 MILLIGRAM ORAL DAILY. hydrOXYzine HCL (ATARAX) 25 MG TAB 25 MILLIGRAM ORAL EVERY 6 HOURS. as needed for ALLERGIES Start taking the following new medications: RIVAROXABAN (XARELTO) 15 MG TAB 15 MILLIGRAM ORAL DAILY. Days = 30 Qty = 30 No Refills Objective VS/I O Last Documented: Result Date Time Pulse Ox 96 04/15 711 B/P 100/42 04/15 711 B/P Mean 61.6 04/15 711 O2 Delivery Room air 04/15 711 Temp 36.7 04/15 711 Pulse 73 04/15 711 Resp 16 04/15 711 O2 Flow Rate 10 04/14 1840 24 hour I O ending at 0700: 04/15 1900 Intake Total 120 100 Output Total 200 600 Balance -80 -500 Intake, Oral 120 100 Number Voids 2 Output, Urine 200 600 PATIENT WEIGHT: Weight (lb): 110 Weight (oz): 0.17 Weight (kg): 49.900 Results Findings/Data: Laboratory Tests: 04/15 04/14 04/14 04/14 07 2109 1833 1132 Chemistry POC Glucose (70 - 110 MG/DL) 156 H 119 H 103 86 Discharge Instructions PCP )( Discharge to: Home/Self Care Discharge Instructions Additional Discharge Routines: PCP Follow-Up )( Diet: Diabetic Follow-up Appointments PCP follow up: PCP: No Primary or Family Physician PCP follow up timeframe: In 1-2 weeks Quality: Discharge Current Medications Current medication review: Current Medications Sig/Serenity Start time Last Medication Dose Route Stop Time Status Admin Aspirin 81 MG DAILY 04/14 900 AC PO 05/14 0859 Lidocaine 1 PATCH DAILY 04/14 900 DCr TOPICAL 05/14 859 Lisinopril 10 MG BEDTIME 04/13 2100 AC PO 05/13 2059 Ropinirole HCl 4 MG BEDTIME 04/13 2100 DC PO 05/13 2059 Lidocaine 1 PATCH DAILY 04/13 164 UNVr TOPICAL 05/13 1632 Dextrose/Water 125 ML ASDIR PRN 04/13 1600 CKD IV 05/13 155 Dextrose/Water 250 ML ASDIR PRN 04/13 1600 CKD IV 05/13 1559 Glucagon 1 MG ASDIR PRN 04/13 1600 AC IM 05/13 1559 Clopidogrel Bisulfate 75 MG DAILY 04/13 900 AC 04/13 PO 05/13 0859 0829 Ropinirole HCl 4 MG BID 04/13 900 AC 04/13 PO 05/13 0621 0829 Insulin Human Lispro 0 AC HS 04/13 0730 AC SUBQ 05/13 0729 Acetaminophen/ 1 TAB Q6H PRN PRN 04/13 0630 AC 1 06/13 Codeine Phosphate PO 04/18 0629 1542 Acetaminophen 650 MG Q6H PRN PRN 04/13 0330 AC PO 05/13 0329 Acetaminophen 0 .STK-MED ONE 04/13 0307 DC .ROUTE Lisinopril 0 .STK-MED ONE 04/12 224 DC .ROUTE Fentanyl Citrate 100 MCG PACU Q10MIN PRN PRN 30 DC IV 04/12 1721 Fentanyl Citrate 50 MCG PACU Q10MIN PRN PRN 9 0730 DC IV 04/12 1721 Hydralazine HCl 5 MG PACU Q10MIN PRN PRN 04/12 0 730 DC IV 04/12 1721 Hydrocodone Bitart/ 1 TAB PACU ONCE 04/12 0730 D C Acetaminophen PO 04/12 1721 Hydromorphone HCl 1 MG PACU Q10MIN PRN PRN 04/12 0730 DC IV 04/12 1721 Hydromorphone HCl 0.5 MG PACU Q5MIN PRN PRN 9 0730 DC IV 04/12 1721 Insulin Human Lispro 0 PACU ONCE PRN 04/12 0730 DC SUBQ 04/12 1721 Labetalol HCl 5 MG PACU Q10MIN PRN PRN 04/12 07 30 DC IV 04/12 1721 Meperidine HCl 12.5 MG PACU ONCE PRN 04/12 0730 DC IV 04/12 1721 Morphine Sulfate 2 MG PACU Q10MIN PRN PRN 04/12 0730 DC IV 04/12 1721 Ondansetron HCl 4 MG PACU ONCE PRN 04/12 0730 DC IV 04/12 1721 Ropivacaine 150 MG ASDIR PRN 04/12 0730 DC LOCAL 04/12 1721 Tramadol HCl 50 MG PACU ONCE 04/12 730 DC PO 04/12 1721 Acetaminophen 1,000 MG PREOP ONCALL 04/11 1130 C KD PO 05/11 2359 Lactated Ringer's 1,000 ML PREOP ONCALL 04/11 1 130 AC IV 05/11 2359 Lidocaine HCl 2 ML PREOP ONCALL 04/11 1130 AC LOCAL 05/11 2359 Lidocaine HCl 2 ML PREOP ONCALL 04/11 1130 AC LOCAL 05/11 2359 Sodium Chloride 500 ML PREOP ONCALL 04/11 1130 A C IV 05/11 2359 Sodium Chloride 500 ML PREOP ONCALL 04/11 1130 AC IV 05/11 2359 Sodium Chloride 1,000 ML PREOP ONCALL 04/11 1130 AC IV 05/11 2359 Sodium Chloride 5 ML ASDIR PRN 04/11 1130 AC IV 05/11 1129 Sodium Chloride 10 ML ASDIR PRN 04/11 1130 AC IV 05/11 1129 Sodium Chloride 250 ML ASDIR PRN 04/11 1130 AC IV 05/11 1129 Home Medications: metFORMIN (GLUCOPHAGE) 1,000 MG PO BID rOPINIRole (REQUIP) 4 MG PO BID LISINOPRIL (ZESTRIL) 10 MG PO DAILY FLUTICASONE PROPIONATE (FLOVENT HFA 44 MCG/ACT) 2 PUFF INH RTBID ATORVASTATIN (LIPITOR) 40 MG PO DAILY hydrOXYzine HCL (ATARAX) 25 MG PO Q6H PRN ALLERG IES CLOPIDOGREL (PLAVIX) 75 MG PO DAILY I attest that the foregoing medication list in t he medical record is true, accurate, and complete to the best of my knowled ge. Electronically Signed by Indiana Cardoso APRN on at 2231 at 4182 RPT #:[id number] END OF REPORT 2022-04-14 18:40:00-00:00 [facility] ([facility]) Operative Note - Full REPORT#:[id number] REPORT STATUS: Signed DATE:04/14/22 TIME: 1839 PATIENT: MANJIT NESS UNIT #: [id number] ROOM/BED: [place] [address] : 48 AGE: 72 SEX: F ATTEND: Vonda Bell MD ADM AUTHOR: Rayne Ghosh MD * ALL edits or amendments must be made on the el ectronic/computer document * Operative Report ORM Surgeries: Surgery Date and Time: 04/14/2022 1615 Primary Procedure: ANGIOGRAMS LOWER EXTREMITY L EFT Start date: 04/14/22 Start time: 1630 Pre-procedure diagnosis: Left leg critical limb ischemia Left lower extremity atherosclerosis washoe rahul rupert with rest pain Left femoral-popliteal artery occlusion Post-procedure diagnosis: same Procedures performed: 1. Percutaneous ultrasound g uided access right common femoral artery with images maintained for record [id number] 2. Abdominal aortagram 54213 3. Bilateral lower extreity arteriograms 08307 4. Left anterior tibial artery 0.9 laser atherec dudley with 2.5 mm balloon angioplasty 79964 5. Left anterior tibial artery amd posterior tib ial artery percutaneous mechanical [place] [address], [address] 6. Left superficial femoral and popliteal artery stents, 5 m X 25 cm, 5 mm X 15 cm, 6 mm X 2.5 cm viabahns 83591 7. Left Common iliac artery stent 7 mm X 29 mm Visipro balloon expandable stent 74902 8. Percutaneous ultrasound g uided access retrograd left posterior tibial artery [id number] Technique/Procedure: The patient was brought into the operative room and prepped and draped in the usual sterile manner. Percut aneous ultrasound-guided active access was obtained to the right common femoral artery with a microc atheter system and exchanged over a Glidewire to a 6 Serbian 10 cm sheath. An Omni Flush cath was placed in the abdominal and abdominal gram was performed. Cath was then pulled out aortic bifurcation and iliac angiography was completed. The Omni Flush cath was then extended down to the left common femoral artery over a Glidewire and the left lower extremity arteriogram was completed. This time a Glidewire was used to cross the occluded stents. The sheath wa s exchanged to a 6 Serbian 90 cm sheath which was advanced across th e femoral-popliteal artery occlusion into the distal popliteal artery. Francois cross catheter was used t o cross the stenoses in the anterior tibial artery with multifocal areas of thrombus and diffuse stenosis distally noted today of the dorsalis pedis. A 0. 014 wire was placed and 0.9 laser atherectomy was then c ompleted of the entire length of the anterior tibial artery with postangioplasty with a 2.5 t o 3 mm tapered balloon. There was some spasm associated afterwards which was treated with 300 mcg of nitroglycerin and placed diffusely through the vessel. Thr ombus was noted in the anterior tibial artery to be persistent this might ather ectomy and angioplasty therefore a CAT Rx system was used and advanced over the 0.014 w ava and thrombectomy was completed of the anterior tibial artery througho ut its length. There was 1 small focal area of thrombus remaining b ut it was not flow-limiting at the mid to distal vessel. On reevaluation of the posteri or tibial artery it was noted that it was completely occluded. There was recur rent extravasation from previous procedure in the peroneal artery. The w ava was used to attempt to cross the posterior tibial a rtery however I could not cross antegrade due to the thrombus. Therefore percutaneous ultrasound-guid ed active access was obtained retrograde at the posterior tibial artery above the malleolus. The wire was exchanged changed into the 6 Serbian sheath and a body floss was obtained. The wire was exchanged to a 0.014 wire and p ercutaneous thrombectomy was completed again with a CAT Rx system of the entire length of the tibioperoneal trunk and posterior tibial artery. Angioplasty was then c ompleted with a 3 mm balloon. The wire was extended across the access point ca th was pulled back and the micropuncture sheath was pulled back and angiopl asty was performed throughout the distal access. There was thrombus noted in t he plantar vessels which was again treated with a CAT Rx device with percutan eous thrombectomy. Nitroglycerin was placed and completion angiogra phy demonstrated flow to the plantar arteries. The femoral-popliteal occlusio n was treated with relining with stent grafts as the pat ient would not tolerate overnight thrombolysis with an open thrombectomy. A 5 mm x 25 cm Viabahn stent graft was built up from just distal to the stent to the p roximal suprafemoral artery. The remaining distance was treated with a 5 mm x 15 cm Viabahn stent gr aft and then a 6 mm x 2.5 cm Viabahn stent graft. The distal stent grafts wer e angioplastied with a 5 mm balloon. The proximal stent graft and common fem oral artery was angioplastied with a 6 mm balloon. This armenian elded good flow and good result and reestablishment of flow to the anterior tibial and posterior tib ial arteries. Sheath was then pulled back and the left common iliac ar jhoana stenosis was reevaluated. History demonstrated severe stenosis there is concern fo r inflow quality to maintain stent patency. Therefore a 7 mm x 29 millimeters VISI Pro balloon expandable stent was then deployed from the ostium of the common iliac artery on the left side to above the bifurcatio n to the internal and external iliac arteries. This yielded good result with good flow. The sheath w as pulled back to the right external iliac artery and right lower extremity arteriogram was completed. Angio-Seal device was then u sed to close right groin access without difficulty. The patient tolerated the procedure well. There are no complications. The patient was stable on discharge the PACU. Primary Surgeon: Dr. Rayne Ghosh Liquefaction And Regasification Helper(s): none Anesthesia: general anesthesia Operative findings: Abdominal aortagram demonstrates patent abdomina l aorta with antegrade flow through the celiac trunk, splenic artery, common hepatic artery and gastroduodenal artery. The superior mesenteric a rtery has antegrade flow. Aorta has a stenosis just below bilatera l renal arteries which are patent with good nephrograms. 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 The inferior mesente kristin artery is not well visualized. The right common iliac artery stent is patent. Left common iliac artery has a severe stenosis of 70% diffusely throughout the vessel. Bilateral internal iliac arteries are patent with 60% steno sis. Bilateral external iliac arteries are patent with 50% stenosis. The right common f emoral artery has stenosis to 70%. The right superficial femoral artery is occ luded. The right profunda femoris artery is patent with reconstitu tion of the popliteal artery with flow distally to the popliteal artery to the anterior tibial artery, tibial trunk peroneal and posterior tibial arteries. The posterior tibial arteries are main outflow to the foot. ActivICE patent to the dors krystina pedis with diffuse mild stenosis. The peroneal artery is patent to [facility] at the malleolus. Left lower extremity arterio gram demonstrates patent left common femoral artery with occluded profunda femor is and superficial femoral artery. There is a large collateral at the common femoral which reconstit utes the profunda femoris distally. Previous stents have jailed the profun da femoris ostium. The superficial femoral artery and popliteal artery stents are occluded. There is reconstitution of the distal popliteal artery wi th flow through the anterior tibial artery with thrombus of the anter ior tibial artery. The tibial trunk is patent with thrombus in the posterior tibial artery and peroneal arteries noted. The distal plantar arteries and dorsalis pedis are patent. There may be thrombus within the plantar arteries on initial angiography. Complications: none Estimated blood loss in ml's: none Specimens removed/altered: thrombus Implant(s): stent and stent grafts at 1847 RPT #:[id number] END OF REPORT 2022-04-14 18:30:00-00:00 [facility] Brief Op Note REPORT#:[id number] REPORT STATUS: Signed DATE:04/14/22 TIME: 1829 PATIENT: MANJIT NESS UNIT #: [id number] ROOM/BED: [place] [address] : 48 AGE: 72 SEX: F ATTEND: Vonda Bell ADM AUTHOR: Rayne Ghosh MD * ALL edits or amendments must be made on the Circular/computer document * Op/Inv Proc Note - Brief ORM Surgeries: Surgery Date and Time: 04/14/2022 1615 Primary Procedure: ANGIOGRAMS LOWER EXTREMITY L EFT Pre-procedure diagnosis: Left leg critical limb ischemia Left lower extremity atherosclerosis washoe rahul rupert with rest pain Left femoral-popliteal artery occlusion Post-procedure diagnosis: same as pre procedure dx Procedures performed: 1. Percutaneous ultrasound g uided access right common femoral artery with images maintained for record [id number] 2. Abdominal aortagram 64355 3. Bilateral lower extreity arteriograms 74647 4. Left anterior tibial artery 0.9 laser atherec dudley with 2.5 mm balloon angioplasty 29651 5. Left anterior tibial artery amd posterior tib ial artery percutaneous mechanical [place] [address], [address] 6. Left superficial femoral and popliteal artery stents, 5 m X 25 cm, 5 mm X 15 cm, 6 mm X 2.5 cm viabahns 68345 7. Left Common iliac artery stent 7 mm X 29 mm Visipro balloon expandable stent [id number] 8. Percutaneous ultrasound g uided access retrograd left posterior tibial artery [id number] Primary Surgeon: Dr. Rayne Ghosh Liquefaction And Regasification Helper(s): none Anesthesia: general anesthesia Findings: Abdominal exam demonstrates patent abdom inal aorta with antegrade flow through the celiac trunk, splenic artery, common hepatic artery and gastroduodenal artery. The superior mesenteric artery has anteg rade flow. Aorta has a stenosis just below bilateral renal arteries whi ch are patent with good nephrograms. 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 The inferior mesente kristin artery is not well visualized. The right common iliac artery stent is patent. Left common iliac artery has a severe stenosis of 70% diffusely throughout the vessel. Bilateral internal iliac arteries are patent with 60% steno sis. Bilateral external iliac arteries are patent with 50% stenosis. The right common f emoral artery has stenosis to 70%. The right superficial femoral artery is occ luded. The right profunda femoris artery is patent with reconstitu tion of the popliteal artery with flow distally to the popliteal artery to the anterior tibial artery, tibial trunk peroneal and posterior tibial arteries. The posterior tibial arteries are main outflow to the foot. ActivICE patent to the dors krystina pedis with diffuse mild stenosis. The peroneal artery is patent to [facility] at the malleolus. Left lower extremity arterio gram demonstrates patent left common femoral artery with occluded profunda femor is and superficial femoral artery. There is a large collateral at the common femoral which reconstit utes the profunda femoris distally. Previous stents have jailed the profun da femoris ostium. The superficial femoral artery and popliteal artery stents are occluded. There is reconstitution of the distal popliteal artery wi th flow through the anterior tibial artery with thrombus of the anter ior tibial artery. The tibial trunk is patent with thrombus in the posterior tibial artery and peroneal arteries noted. The distal plantar arteries and dorsalis pedis are patent. There may be thrombus within the plantar arteries on initial angiography. Complications: none Estimated blood loss in ml's: none Specimens removed/altered: thrombus at 1847 RPT #:[id number] END OF REPORT 2022-04-14 12:37:00-00:[address] [facility] [place], [place] Hospitalist Progress Note REPORT#:[id number] REPORT STATUS: Signed DATE:04/14/22 TIME: 1237 PATIENT: MANJIT NESS UNIT #: [id number] ROOM/BED: [place] [address] : 48 AGE: 72 SEX: F ATTEND: Vonda Bell ADM AUTHOR: Vonda Bell MD * ALL edits or amendments must be made on the Circular/[employer] document * Subjective Chief complaint: she complaint of shouldder pain and leg pain . angiogram -- 4 pm today HPI: 72 years old female with PMH of CAD with PCI and stent , DM, HTN , HLD severe PVD and smoker is admitted to the hospital for Angiopla sty of totally occluded left SFA stent and angiogram . she toleranc e procedure well. she was seen in the pacu. she feel well no cp no sob no abdominal pain no nausea no vomiting Review of Systems Constitutional: Denies: fatigue, fever, lethargy. Respiratory: Denies: productive cough (sputum), SOB, wheezing . Cardiovascular: Denies: chest pain, FALL (dyspnea on exertion), e tk, orthopnea. GI: Denies: abdominal pain, nausea, vomiting. Neuro: Denies: dizziness. Objective General VS/I O: Vital Signs: Date Time Temp Pulse Resp B/P B/P Pulse O2 O2 F low FiO2 Mean Ox Delivery Rate 04/14 1133 36.4 73 20 139/55 83.1 99 Room air 04/14 0718 36.6 63 16 139/54 82.3 99 Room air 04/14 0557 66 17 139/65 93 97 04/13 2359 76 31 165/72 103 97 04/13 2308 36.6 80 16 161/67 98.2 98 04/13 1904 36.6 72 18 167/64 98.2 99 04/13 1548 36.6 69 17 148/66 93.0 97 Room air 24 hour I O ending at 0700: 04/14 0700 04/13 1900 Intake Total 120 240 Output Total Balance 120 240 Intake, Oral 120 240 Number Voids 2 1 PATIENT WEIGHT: Weight (lb): 110 Weight (oz): 0.17 Weight (kg): 49.900 Medications: Active Meds + DC'd Last 24 Hrs Atorvastatin Calcium (LIPITOR) 40 MG 2100 PO Celecoxib (CeleBREX) 200 MG DAILY PO Aspirin (ASPIRIN) 81 MG DAILY PO Lidocaine (LIDODERM) 1 PATCH DAILY TOPICAL (DC) Nitroglycerin (NITRO-DUR 0.1MG/HR) 1 PATCH ONCE ONE TRANSDERM (DC) Insulin Human Lispro (HUMALOG) 0 AC HS SUBQ Lisinopril (ZESTRIL) 10 MG BEDTIME PO Dextrose/Water (DEXTROSE 10% IN WATER) 125 ML DIR PRN IV (CKD) Dextrose/Water (DEXTROSE 10% IN WATER) 250 ML DIR PRN IV (CKD) Enoxaparin Sodium (lovENOX) 40 MG Q24H SUBQ Glucagon (GLUCAGON) 1 MG ASDIR PRN IM Lidocaine (LIDODERM) 1 PATCH Q24H TOPICAL Dextrose/Water (DEXTROSE 10% IN WATER) 125 ML DIR PRN IV (CKD) Dextrose/Water (DEXTROSE 10% IN WATER) 250 ML DIR PRN IV (CKD) Glucagon (GLUCAGON) 1 MG ASDIR PRN IM Clopidogrel Bisulfate (Plavix) 75 MG DAILY PO Ropinirole HCl (REQUIP) 4 MG BID PO Insulin Human Lispro (HUMALOG) 0 AC HS SUBQ (DC) Acetaminophen/Codeine Phosphate (TYLENOL W CODEI NE NO.3) 1 TAB Q6H PRN PRN PO Acetaminophen (TYLENOL) 650 MG Q6H PRN PRN PO Acetaminophen (TYLENOL EXTRA STRENGTH) 1,000 MG PREOP ONCALL PO (CKD) Lactated Ringer's (LACTATED RINGERS) 1,000 ML AR EOP ONCALL IV Lidocaine HCl (LIDOCAINE HCL/PF) 2 ML PREOP ONCA LL LOCAL Lidocaine HCl (LIDOCAINE HCL/PF) 2 ML PREOP ONCA LL LOCAL Sodium Chloride (SODIUM CHLORIDE 0.9%) 500 ML AR EOP ONCALL IV Sodium Chloride (SODIUM CHLORIDE 0.9%) 500 ML AR EOP ONCALL IV Sodium Chloride (SODIUM CHLORIDE 0.9%) 1,000 ML PREOP ONCALL IV Sodium Chloride (SODIUM CHLORIDE) 5 ML ASDIR PRN IV Sodium Chloride (SODIUM CHLORIDE) 10 ML ASDIR AR N IV Sodium Chloride (SODIUM CHLORIDE 0.9%) 250 ML DIR PRN IV Physical Exam General appearance: alert, awake, oriented Head/Eyes: atraumatic, normal conjunctiva/sclera , normal eyelids/periorb., normocephalic Neck: full range of motion, non-tender, normal t hyroid, no JVD Cardiovascular: normal heart sounds, regular rat e rhythm Respiratory: aerating well, clear to auscultatio n Abdomen: non-tender, normal bowel sounds, soft, no distention Extremities: moves all, no calf tenderness, no e tk Neuro/BENZENE WASHER: alert, oriented X 3, CNII-XII intact, normal speech, no motor deficits, no sensory deficits Skin: dry, intact Results Findings/Data: Laboratory Tests 04/14 04/14 04/14 04/13 04/13 1132 0713 0415 2032 1544 Chemistry Sodium (134 - 147 mEq/L) 137 Potassium (3.4 - 5.0 mEq/L) 4.5 Chloride (100 - 108 mEq/L) 103 Carbon Dioxide (21 - 33 mEq/l) 27 Anion Gap (0 - 20) 11 BUN (7 - 18 mg/dL) 23 H Creatinine (0.6 - 1.3 mg/dL) 1.2 Glomerular Filtr Rate (70 - 80) 47.5 L Glucose (70 - 110 mg/dL) 102 POC Glucose (70 - 110 MG/DL) 86 95 135 H 83 Calcium (8.0 - 10.5 mg/dL) 8.7 Laboratory Tests 04/14 0415 Hematology WBC (4.5 - 11.0 x10 3/uL) 10.9 RBC (3.54 - 5.02 x10 6/uL) 4.31 Hgb (11.0 - 15.0 g/dL) 9.0 L Hct (33.0 - 45.0 %) 29.2 L MCV (81.0 - 99.0 fL) 67.7 L MCH (27.0 - 33.0 pg) 20.9 L MCHC (33.0 - 37.0 g/dL) 30.8 L RDW (11.5 - 14.5 %) 22.7 H Plt Count (150 - 400 x10 3/uL) 381 MPV (7.0 - 9.0 fL) 9.1 H Neut % (Auto) (56.0 - 77.0 %) 67.2 Lymph % (Auto) (14.0 - 32.0 %) 22.2 Benzie % (Auto) (4.8 - 9.0 %) 7.7 Eos % (Auto) (0.3 - 3.7 %) 1.7 Baso % (Auto) (0.0 - 2.0 %) 0.7 Neut # (Auto) (2.0 - 7.6 x10 3/uL) 7.31 Lymph # (Auto) (1.0 - 3.8 x10 3/uL) 2.41 Benzie # (Auto) (0.1 - 0.8 x10 3/uL) 0.84 H Eos # (Auto) (0.0 - 0.2 x10 3/uL) 0.18 Baso # (Auto) (0.0 - 0.2 x10 3/uL) 0.08 Abs Immat Gran (auto) (0.00 - 0.03 x10 3/uL) 0. 05 H Add Manual Diff NO Immature Gran % (0.0 - 2.0 %) 0.5 Nucleated RBC % (0 - 0 %) 0.0 Nucleated RBCs # (Man) (0.0 - 0.1 x10 3/uL) 0.0 0 Diagnosis, Assessment Plan Consultants: cardiology Free Text DxA P Notes Free text DxA P notes: severe PVD CAD DM HTN HLD severe PVD cardiology consult Angioplasty of totally occluded left SFA stent and angiogram on plavix /lipitor vascular surgeon consult CAD-- continue home med DM-- hold metformin -- sliding scale HTN -- on lisinopril DVTP--lovenox 04/13- she complaint of shoulder pain lidocaine patch vascular surgeon consult 04/14 -- pain control angiogram -- 4 pm -- as vascular surgeon -- continue current management Quality: Gen Med Crit Care Current Medications Current medication review: Current Medications Sig/Serenity Start time Last Medication Dose Route Stop Time Status Admin Aspirin 81 MG DAILY 04/14 0900 AC PO 05/14 859 Lidocaine 1 PATCH DAILY 04/14 09 DCr TOPICAL 05/14 859 Lisinopril 10 MG BEDTIME 04/13 2100 AC PO 05/13 2059 Ropinirole HCl 4 MG BEDTIME 04/13 2100 DC PO 05/13 205 Lidocaine 1 PATCH DAILY 04/13 1645 UNVr TOPICAL 05/13 1632 Dextrose/Water 125 ML ASDIR PRN 04/13 1600 CKD IV 05/13 1559 Dextrose/Water 250 ML ASDIR PRN 04/13 1600 CKD IV 05/13 1559 Glucagon 1 MG ASDIR PRN 04/13 1600 AC IM 05/13 1559 Clopidogrel Bisulfate 75 MG DAILY 04/13 900 AC 04/13 PO 05/13 0859 0829 Ropinirole HCl 4 MG BID 04/13 900 AC 04/13 PO 05/13 0621 0829 Insulin Human Lispro 0 AC HS 04/13 0730 AC SUBQ 05/13 0729 Acetaminophen/ 1 TAB Q6H PRN PRN 04/13 0630 AC 1 06/13 Codeine Phosphate PO 04/18 0629 1542 Acetaminophen 650 MG Q6H PRN PRN 04/13 0330 AC PO 05/13 0329 Acetaminophen 0 .STK-MED ONE 04/13 0307 DC .ROUTE Lisinopril 0 .STK-MED ONE 04/12 2241 DC .ROUTE Fentanyl Citrate 100 MCG PACU Q10MIN PRN PRN 0730 DC IV 04/12 1721 Fentanyl Citrate 50 MCG PACU Q10MIN PRN PRN 110 9 0730 DC IV 04/12 1721 Hydralazine HCl 5 MG PACU Q10MIN PRN PRN 04/12 0 730 DC IV 04/12 1721 Hydrocodone Bitart/ 1 TAB PACU ONCE 04/12 0730 D C Acetaminophen PO 04/12 1721 Hydromorphone HCl 1 MG PACU Q10MIN PRN PRN 04/12 0730 DC IV 04/12 1721 Hydromorphone HCl 0.5 MG PACU Q5MIN PRN PRN 11/0 9 0730 DC IV 04/12 1721 Insulin Human Lispro 0 PACU ONCE PRN 04/12 0730 DC SUBQ 04/12 1721 Labetalol HCl 5 MG PACU Q10MIN PRN PRN 04/12 073 0 DC IV 04/12 1721 Meperidine HCl 12.5 MG PACU ONCE PRN 04/12 0730 DC IV 04/12 1721 Morphine Sulfate 2 MG PACU Q10MIN PRN PRN 04/12 0730 DC IV 04/12 1721 Ondansetron HCl 4 MG PACU ONCE PRN 04/12 0730 DC IV 04/12 1721 Ropivacaine 150 MG ASDIR PRN 04/12 0730 DC LOCAL 04/12 1721 Tramadol HCl 50 MG PACU ONCE 04/12 0730 DC PO 04/12 1721 Acetaminophen 1,000 MG PREOP ONCALL 04/11 1130 C KD PO 05/11 2359 Lactated Ringer's 1,000 ML PREOP ONCALL 04/11 11 30 AC IV 05/11 2359 Lidocaine HCl 2 ML PREOP ONCALL 04/11 1130 AC LOCAL 05/11 2359 Lidocaine HCl 2 ML PREOP ONCALL 04/11 1130 AC LOCAL 05/11 2359 Sodium Chloride 500 ML PREOP ONCALL 04/11 1130 A C IV 05/11 2359 Sodium Chloride 500 ML PREOP ONCALL 04/11 1130 A C IV 05/11 2359 Sodium Chloride 1,000 ML PREOP ONCALL 04/11 1130 AC IV 05/11 2359 Sodium Chloride 5 ML ASDIR PRN 04/11 1130 AC IV 05/11 1129 Sodium Chloride 10 ML ASDIR PRN 04/11 1130 AC IV 05/11 1129 Sodium Chloride 250 ML ASDIR PRN 04/11 1130 AC IV 05/11 1129 Home Medications: metFORMIN (GLUCOPHAGE) 1,000 MG PO BID rOPINIRole (REQUIP) 4 MG PO BID LISINOPRIL (ZESTRIL) 10 MG PO DAILY FLUTICASONE PROPIONATE (FLOVENT HFA 44 MCG/ACT) 2 PUFF INH RTBID ATORVASTATIN (LIPITOR) 40 MG PO DAILY hydrOXYzine HCL (ATARAX) 25 MG PO Q6H PRN ALLERG IES CLOPIDOGREL (PLAVIX) 75 MG PO DAILY I attest that the foregoing medication list in t he medical record is true, accurate, and complete to the best of my knowled ge. Electronically Signed by Vonda Bell MD on 2 at 1240 RPT #:[id number] END OF REPORT 2022-04-14 10:08:00-00:00 [facility] Cardiology Progress Note REPORT#:[id number] REPORT STATUS: Signed DATE:04/14/22 TIME: 1008 PATIENT: MANJIT NESS UNIT #: [id number] ROOM[address]BED: [address] : [address] AGE: 72 SEX: F ATTEND: Vonda Bell ADM AUTHOR: Elza Nash CNP * ALL edits or amendments must be made on the Circular/[employer] document * Subjective Chief complaint: left leg pain Objective General VS/I O: 24 hour I O ending at 0700: 04/14 0700 04/13 1900 Intake Total 120 240 Output Total Balance 120 240 Intake, Oral 120 240 Number Voids 2 1 Vital Signs: Date Time Temp Pulse Resp B/P B/P Pulse O2 O2 F low FiO2 Mean Ox Delivery Rate 04/14 718 36.6 63 16 139/54 82.3 99 Room air 04/14 0557 66 17 139/65 93 97 04/13 2359 76 31 165/72 103 97 04/13 2308 36.6 80 16 161/67 98.2 98 04/13 1904 36.6 72 18 167/64 98.2 99 04/13 1548 36.6 69 17 148/66 93.0 97 Room air 04/13 1110 36.4 67 18 163/56 91.8 97 Room air PATIENT WEIGHT: Weight (lb): 110 Weight (oz): 0.17 Weight (kg): 49.900 Medications: Active Meds + DC'd Last 24 Hrs Atorvastatin Calcium (LIPITOR) 40 MG 2100 PO Aspirin (ASPIRIN) 81 MG DAILY PO Lidocaine (LIDODERM) 1 PATCH DAILY TOPICAL (DC) Nitroglycerin (NITRO-DUR 0.1MG/HR) 1 PATCH ONCE ONE TRANSDERM (DC) Insulin Human Lispro (HUMALOG) 0 AC HS SUBQ Lisinopril (ZESTRIL) 10 MG BEDTIME PO Dextrose/Water (DEXTROSE 10% IN WATER) 125 ML DIR PRN IV (CKD) Dextrose/Water (DEXTROSE 10% IN WATER) 250 ML DIR PRN IV (CKD) Enoxaparin Sodium (lovENOX) 40 MG Q24H SUBQ Glucagon (GLUCAGON) 1 MG ASDIR PRN IM Lidocaine (LIDODERM) 1 PATCH Q24H TOPICAL Dextrose/Water (DEXTROSE 10% IN WATER) 125 ML DIR PRN IV (CKD) Dextrose/Water (DEXTROSE 10% IN WATER) 250 ML DIR PRN IV (CKD) Glucagon (GLUCAGON) 1 MG ASDIR PRN IM Clopidogrel Bisulfate (Plavix) 75 MG DAILY PO Ropinirole HCl (REQUIP) 4 MG BID PO Insulin Human Lispro (HUMALOG) 0 AC HS SUBQ (DC) Acetaminophen/Codeine Phosphate (TYLENOL W CODEI NE NO.3) 1 TAB Q6H PRN PRN PO Acetaminophen (TYLENOL) 650 MG Q6H PRN PRN PO Acetaminophen (TYLENOL EXTRA STRENGTH) 1,000 MG PREOP ONCALL PO (CKD) Lactated Ringer's (LACTATED RINGERS) 1,000 ML AR EOP ONCALL IV Lidocaine HCl (LIDOCAINE HCL/PF) 2 ML PREOP ONCA LL LOCAL Lidocaine HCl (LIDOCAINE HCL/PF) 2 ML PREOP ONCA LL LOCAL Sodium Chloride (SODIUM CHLORIDE 0.9%) 500 ML AR EOP ONCALL IV Sodium Chloride (SODIUM CHLORIDE 0.9%) 500 ML AR EOP ONCALL IV Sodium Chloride (SODIUM CHLORIDE 0.9%) 1,000 ML PREOP ONCALL IV Sodium Chloride (SODIUM CHLORIDE) 5 ML ASDIR PRN IV Sodium Chloride (SODIUM CHLORIDE) 10 ML ASDIR AR N IV Sodium Chloride (SODIUM CHLORIDE 0.9%) 250 ML DIR PRN IV Physical Exam General appearance: awake, o riented, no acute distress, pleasant, conversational Neck: non-tender, no JVD Cardiovascular: CV assessment: regular rate and rhythm Respiratory: decreased breath sounds, on oxygen, no distress Abdomen: soft, non-tender, normal bowel sounds, no distention, no guarding Genitourinary: no flank pain Lower extremity: LE assessment: abnormal pedal pulse (Left foot) , abnormal peripheral pulse ( left foot), no edema Neuro/BENZENE WASHER: alert, normal speech Skin: dry, intact, normal color Psychiatry: normal affect, normal mood Results Findings/Data: Laboratory Tests 04/14 04/14 04/13 04/13 04/13 0713 0415 2032 1544 1106 Chemistry Sodium (134 - 147 mEq/L) 137 Potassium (3.4 - 5.0 mEq/L) 4.5 Chloride (100 - 108 mEq/L) 103 Carbon Dioxide (21 - 33 mEq/l) 27 Anion Gap (0 - 20) 11 BUN (7 - 18 mg/dL) 23 H Creatinine (0.6 - 1.3 mg/dL) 1.2 Glomerular Filtr Rate (70 - 80) 47.5 L Glucose (70 - 110 mg/dL) 102 POC Glucose (70 - 110 MG/DL) 95 135 H 83 85 Calcium (8.0 - 10.5 mg/dL) 8.7 Laboratory Tests 04/14 0415 Hematology WBC (4.5 - 11.0 x10 3/uL) 10.9 RBC (3.54 - 5.02 x10 6/uL) 4.31 Hgb (11.0 - 15.0 g/dL) 9.0 L Hct (33.0 - 45.0 %) 29.2 L MCV (81.0 - 99.0 fL) 67.7 L MCH (27.0 - 33.0 pg) 20.9 L MCHC (33.0 - 37.0 g/dL) 30.8 L RDW (11.5 - 14.5 %) 22.7 H Plt Count (150 - 400 x10 3/uL) 381 MPV (7.0 - 9.0 fL) 9.1 H Neut % (Auto) (56.0 - 77.0 %) 67.2 Lymph % (Auto) (14.0 - 32.0 %) 22.2 Benzie % (Auto) (4.8 - 9.0 %) 7.7 Eos % (Auto) (0.3 - 3.7 %) 1.7 Baso % (Auto) (0.0 - 2.0 %) 0.7 Neut # (Auto) (2.0 - 7.6 x10 3/uL) 7.31 Lymph # (Auto) (1.0 - 3.8 x10 3/uL) 2.41 Benzie # (Auto) (0.1 - 0.8 x10 3/uL) 0.84 H Eos # (Auto) (0.0 - 0.2 x10 3/uL) 0.18 Baso # (Auto) (0.0 - 0.2 x10 3/uL) 0.08 Abs Immat Gran (auto) (0.00 - 0.03 x10 3/uL) 0. 05 H Add Manual Diff NO Immature Gran % (0.0 - 2.0 %) 0.5 Nucleated RBC % (0 - 0 %) 0.0 Nucleated RBCs # (Man) (0.0 - 0.1 x10 3/uL) 0.0 0 Results: labs reviewed, vital signs reviewed Telemetry Interpretation: sinus rhythm Diagnosis, Assessment Plan Problem List/A P: 1. Peripheral vascular disease 2. Coronary artery disease 3. Tobacco abuse counseling Plan discussed with: patient, daughter Free Text DxA P Notes Free Text DxA P Notes: This is a 72-year-old female with past medical h istory of coronary artery disease with prior PCI and stents, diabetes gloria itus, hypertension, hyperlipidemia, lifelong smo ker, known severe peripheral vascular disease, COPD who has been having left lower extremity pain. S he was taken for elective peripheral angiogram and found to have severe pe ripheral vascular disease bilaterally, status post balloon angioplasty wit h partial flow return on the left SFA. Vascular surgery has been consulted. 1. Severe bilateral PVD status post balloon angioplasty with partial kameron w return on the left SFA. Vascular surgery consult - for LLE angiogram tod ay Continue Plavix, aspirin, statin 2. Coronary artery disease with prior PCI/stent No chest Continue medical therapy 3. Tobacco abuse/COPD Strongly encouraged to quit smoking 4. Hypertension Continue lisinopril 5. Diabetes mellitus Manage per admitting physician 6. Hyperlipidemia Continue statin at 1235 Electronically Signed by Whit Villareal MD on at 143 RPT #:[id number] END OF REPORT 2022-04-13 17:04:00-00:00 [facility] Progress Note REPORT#:[id number] REPORT STATUS: Signed DATE:04/13/22 TIME: 1704 PATIENT: MANJIT NESS UNIT #: [id number] ROOM/BED: 3[address]1 : 48 AGE: 72 SEX: F ATTEND: Vonda Bell ADM AUTHOR: Vonda Bell MD * ALL edits or amendments must be made on the el [employer]/computer document * Subjective Chief complaint: she complaint of shouldder pain HPI: 72 years old female with PMH of CAD with PCI and stent , DM, HTN , HLD severe PVD and smoker is admitted to the hospital for Angiopla sty of totally occluded left SFA stent and angiogram . she toleranc e procedure well. she was seen in the pacu. she feel well no cp no sob no abdominal pain no nausea no vomiting Review of Systems Constitutional: Denies: fatigue, fever, generalized weakness, le thargy. Respiratory: Denies: pneumonia, productive cough (sputum), SO B. Cardiovascular: Denies: chest pain, FALL (dyspnea on exertion), e tk, orthopnea. GI: Denies: abdominal pain, nausea, vomiting. : Denies: flank pain. Musculoskeletal: Extremity pain: Reports: left upper, right lower. Neuro: Denies: confusion, dizziness. Objective General VS/I O: Vital Signs: Date Time Temp Pulse Resp B/P B/P Pulse O2 O2 F low FiO2 Mean Ox Delivery Rate 04/13 1548 36.6 69 17 148/66 93.0 97 Room air 04/13 1110 36.4 67 18 163/56 91.8 97 Room air 04/13 0716 36.6 88 20 141/61 87.5 95 Room air 04/12 1943 36.3 73 18 149/67 94.1 100 24 hour I O ending at 0700: 04/13 0700 04/12 1900 Intake Total 500 Output Total Balance 500 Intake, Oral 500 Number Voids 3 PATIENT WEIGHT: Weight (lb): 110 Weight (oz): 0.17 Weight (kg): 49.900 Medications: Active Meds + DC'd Last 24 Hrs Aspirin (ASPIRIN) 81 MG DAILY PO Atorvastatin Calcium (LIPITOR) 40 MG DAILY PO (U NV) Lidocaine (LIDODERM) 1 PATCH DAILY TOPICAL (DCr) Insulin Human Lispro (HUMALOG) 0 AC HS SUBQ (UNV ) Lisinopril (ZESTRIL) 10 MG BEDTIME PO Ropinirole HCl (REQUIP) 4 MG BEDTIME PO (DC) Dextrose/Water (DEXTROSE 10% IN WATER) 125 ML DIR PRN IV (UNV) Dextrose/Water (DEXTROSE 10% IN WATER) 250 ML DIR PRN IV (UNV) Enoxaparin Sodium (lovENOX) 40 MG Q24H SUBQ (UNV ) Glucagon (GLUCAGON) 1 MG ASDIR PRN IM (UNV) Lidocaine (LIDODERM) 1 PATCH DAILY TOPICAL (UNVr ) Dextrose/Water (DEXTROSE 10% IN WATER) 125 ML DIR PRN IV (CKD) Dextrose/Water (DEXTROSE 10% IN WATER) 250 ML DIR PRN IV (CKD) Glucagon (GLUCAGON) 1 MG ASDIR PRN IM Clopidogrel Bisulfate (Plavix) 75 MG DAILY PO Ropinirole HCl (REQUIP) 4 MG BID PO Insulin Human Lispro (HUMALOG) 0 AC HS SUBQ Acetaminophen/Codeine Phosphate (TYLENOL W CODEI NE NO.3) 1 TAB Q6H PRN PRN PO Acetaminophen (TYLENOL) 650 MG Q6H PRN PRN PO Acetaminophen (TYLENOL) 0 .STK-MED ONE .ROUTE (D C) Lisinopril (ZESTRIL) 0 .STK-MED ONE .ROUTE (DC) Fentanyl Citrate (SUBLIMAZE) 100 MCG PACU Q10MIN PRN PRN IV (DC) Fentanyl Citrate (SUBLIMAZE) 50 MCG PACU Q10MIN PRN PRN IV (DC) Hydralazine HCl (APRESOLINE) 5 MG PACU Q10MIN AR N PRN IV (DC) Hydrocodone Bitart/Acetaminophen (NORCO 5/325) 1 TAB PACU ONCE PO (DC) Hydromorphone HCl (DILAUDID) 1 MG PACU Q10MIN AR N PRN IV (DC) Hydromorphone HCl (DILAUDID) 0.5 MG PACU Q5MIN P RN PRN IV (DC) Insulin Human Lispro (HUMALOG) 0 PACU ONCE PRN S UBQ (DC) Labetalol HCl (LABETALOL HCL) 5 MG PACU Q10MIN P RN PRN IV (DC) Meperidine HCl (DEMEROL 50MG/ML) 12.5 MG PACU ON CE PRN IV (DC) Morphine Sulfate (morphine SULFATE) 2 MG PACU Q1 0MIN PRN PRN IV (DC) Ondansetron HCl (ZOFRAN) 4 MG PACU ONCE PRN IV ( DC) Ropivacaine (NAROPIN 0.5% 150 MG/30mL) 150 MG DIR PRN LOCAL (DC) Tramadol HCl (ULTRAM) 50 MG PACU ONCE PO (DC) Acetaminophen (TYLENOL EXTRA STRENGTH) 1,000 MG PREOP ONCALL PO (CKD) Lactated Ringer's (LACTATED RINGERS) 1,000 ML AR EOP ONCALL IV Lidocaine HCl (LIDOCAINE HCL/PF) 2 ML PREOP ONCA LL LOCAL Lidocaine HCl (LIDOCAINE HCL/PF) 2 ML PREOP ONCA LL LOCAL Sodium Chloride (SODIUM CHLORIDE 0.9%) 500 ML AR EOP ONCALL IV Sodium Chloride (SODIUM CHLORIDE 0.9%) 500 ML AR EOP ONCALL IV Sodium Chloride (SODIUM CHLORIDE 0.9%) 1,000 ML PREOP ONCALL IV Sodium Chloride (SODIUM CHLORIDE) 5 ML ASDIR PRN IV Sodium Chloride (SODIUM CHLORIDE) 10 ML ASDIR AR N IV Sodium Chloride (SODIUM CHLORIDE 0.9%) 250 ML DIR PRN IV Physical Exam General appearance: alert, awake, oriented Head/Eyes: atraumatic, normal conjunctiva/sclera , normal eyelids/periorb., normocephalic Neck: full range of motion, non-tender, normal t hyroid, no JVD Cardiovascular: normal heart sounds, regular rat e rhythm Respiratory: aerating well, clear to auscultatio n Abdomen: non-tender, normal bowel sounds, soft, no distention Extremities: moves all, no calf tenderness, no e tk Neuro/BENZENE WASHER: alert, oriented X 3, CNII-XII intact, normal speech, no motor deficits, no sensory deficits Skin: dry, intact Results Findings/Data: Laboratory Tests 04/13 04/13 04/13 04/12 04/12 1544 1106 0711 1945 1945 Chemistry POC Glucose (70 - 110 MG/DL) 83 85 90 143 H 143 H Diagnosis, Assessment Plan Consultants: cardiology Free Text DxA P Notes Free text DxA P notes: severe PVD CAD DM HTN HLD severe PVD cardiology consult Angioplasty of totally occluded left SFA stent and angiogram on plavix /lipitor vascular surgeon consult CAD-- continue home med DM-- hold metformin -- sliding scale HTN -- on lisinopril DVTP--lovenox 04/13- she complaint of shoulder pain lidocaine patch vascular surgeon consult Quality: Gen Med Crit Care Current Medications Current medication review: Current Medications Sig/Serenity Start time Last Medication Dose Route Stop Time Status Admin Aspirin 81 MG DAILY 04/14 0900 AC PO 05/14 0859 Lidocaine 1 PATCH DAILY 04/14 900 DCr TOPICAL 05/14 0859 Lisinopril 10 MG BEDTIME 04/13 2100 AC PO 05/13 2059 Ropinirole HCl 4 MG BEDTIME 04/13 2100 DC PO 05/13 2059 Lidocaine 1 PATCH DAILY 04/13 1645 UNVr TOPICAL 05/13 1632 Dextrose/Water 125 ML ASDIR PRN 04/13 1600 CKD IV 05/13 1559 Dextrose/Water 250 ML ASDIR PRN 04/13 1600 CKD IV 05/13 1559 Glucagon 1 MG ASDIR PRN 04/13 1600 AC IM 05/13 1559 Clopidogrel Bisulfate 75 MG DAILY 04/13 900 AC 04/13 PO 05/13 0859 0829 Ropinirole HCl 4 MG BID 04/13 900 AC 04/13 PO 05/13 0621 0829 Insulin Human Lispro 0 AC HS 04/13 0730 AC SUBQ 05/13 0729 Acetaminophen/ 1 TAB Q6H PRN PRN 04/13 0630 AC 1 06/13 Codeine Phosphate PO 04/18 0629 1542 Acetaminophen 650 MG Q6H PRN PRN 04/13 0330 AC PO 05/13 0329 Acetaminophen 0 .STK-MED ONE 04/13 0307 DC .ROUTE Lisinopril 0 .STK-MED ONE 04/12 2241 DC .ROUTE Fentanyl Citrate 100 MCG PACU Q10MIN PRN PRN 0730 DC IV 04/12 1721 Fentanyl Citrate 50 MCG PACU Q10MIN PRN PRN 11 9 0730 DC IV 04/12 1721 Hydralazine HCl 5 MG PACU Q10MIN PRN PRN 04/12 0 730 DC IV 04/12 1721 Hydrocodone Bitart/ 1 TAB PACU ONCE 04/12 0730 D C Acetaminophen PO 04/12 1721 Hydromorphone HCl 1 MG PACU Q10MIN PRN PRN 04/12 0730 DC IV 04/12 1721 Hydromorphone HCl 0.5 MG PACU Q5MIN PRN PRN 110 9 0730 DC IV 04/12 1721 Insulin Human Lispro 0 PACU ONCE PRN 04/12 0730 DC SUBQ 04/12 1721 Labetalol HCl 5 MG PACU Q10MIN PRN PRN 04/12 073 0 DC IV 04/12 1721 Meperidine HCl 12.5 MG PACU ONCE PRN 04/12 0730 DC IV 04/12 1721 Morphine Sulfate 2 MG PACU Q10MIN PRN PRN 04/12 0730 DC IV 04/12 1721 Ondansetron HCl 4 MG PACU ONCE PRN 04/12 0730 DC IV 04/12 1721 Ropivacaine 150 MG ASDIR PRN 04/12 0730 DC LOCAL 04/12 1721 Tramadol HCl 50 MG PACU ONCE 04/12 0730 DC PO 04/12 1721 Acetaminophen 1,000 MG PREOP ONCALL 04/11 1130 C KD PO 05/11 2359 Lactated Ringer's 1,000 ML PREOP ONCALL 04/11 11 30 AC IV 05/11 2359 Lidocaine HCl 2 ML PREOP ONCALL 04/11 1130 AC LOCAL 05/11 2359 Lidocaine HCl 2 ML PREOP ONCALL 04/11 1130 AC LOCAL 05/11 2359 Sodium Chloride 500 ML PREOP ONCALL 04/11 1130 A C IV 05/11 2359 Sodium Chloride 500 ML PREOP ONCALL 04/11 1130 A C IV 05/11 2359 Sodium Chloride 1,000 ML PREOP ONCALL 04/11 113 0 AC IV 05/11 2359 Sodium Chloride 5 ML ASDIR PRN 04/11 1130 AC IV 05/11 1129 Sodium Chloride 10 ML ASDIR PRN 04/11 1130 AC IV 05/11 1129 Sodium Chloride 250 ML ASDIR PRN 04/11 1130 AC IV 05/11 1129 Home Medications: metFORMIN (GLUCOPHAGE) 1,000 MG PO BID rOPINIRole (REQUIP) 4 MG PO BID LISINOPRIL (ZESTRIL) 10 MG PO DAILY FLUTICASONE PROPIONATE (FLOVENT HFA 44 MCG/ACT) 2 PUFF INH RTBID ATORVASTATIN (LIPITOR) 40 MG PO DAILY hydrOXYzine HCL (ATARAX) 25 MG PO Q6H PRN ALLERG IES CLOPIDOGREL (PLAVIX) 75 MG PO DAILY I attest that the foregoing medication list in t he medical record is true, accurate, and complete to the best of my knowled ge. Electronically Signed by Vonda Bell MD on 2 at 1713 RPT #:[id number] END OF REPORT 2022-04-13 14:04:00-00:00 [facility] ([facility]) Hospitalist History Physical REPORT#:[id number] REPORT STATUS: Signed DATE:04/13/22 TIME: 1404 PATIENT: MANJIT NESS UNIT #: [id number] ROOM/BED: 3345-1 : 48 AGE: 72 SEX: F ATTEND: Vonda Bell ADM AUTHOR: Vonda Bell MD * ALL edits or amendments must be made on the Circular/[employer] document * See Addendum History of Present Illness HPI Chief complaint: leg pain HPI: 72 years old female with PMH of CAD with PCI and stent , DM, HTN , HLD severe PVD and smoker is admitted to the hospital for Angiopla sty of totally occluded left SFA stent and angiogram . she toleranc e procedure well. she was seen in the pacu. she feel well no cp no sob no abdominal pain no nausea no vomiting History Social History Alcohol use: Denies EtOH use Drug use: Denies recreational drugs Smoking status for patients 13 years old or olde r: Current every day smoker Date last smoked: 04/11/22 Medication/Allergy-Vaccine Hx Allergies: Coded Allergies: bee venom protein (honey bee) (Severe, HIVES 03/25) Penicillins (HIVES 04/13/22) Review of Systems Constitutional: Denies: fatigue, fever, generalized weakness, le thargy. Respiratory: Denies: pneumonia, productive cough (sputum), SO B, wheezing. Cardiovascular: Denies: chest pain, FALL (dyspnea on exertion), e tk, orthopnea. GI: Denies: abdominal pain, nausea, vomiting. : Denies: dysuria, flank pain, frequency, hematuri a. Musculoskeletal: Reports: extremity pain. Neuro: Denies: confusion, dizziness, headache, syncope. Physical Exam VS/I O: Vital Signs Date Temp Pulse Resp B/P B/P Mean Pulse Ox FiO2 04/12-04/13 36.3-36.6 67-88 17-20 141-163/56-67 87.5-94.1 95-100 Last Documented: Result Date Time Pulse Ox 97 04/13 1548 B/P 148/66 11/10 1548 B/P Mean 93.0 04/13 1548 O2 Delivery Room air 04/13 1548 Temp 36.6 04/13 1548 Pulse 69 04/13 1548 Resp 17 04/13 1548 24 hour I O ending at 0700: 04/13 0700 04/12 1900 Intake Total 500 Output Total Balance 500 Intake, Oral 500 Number Voids 3 Patient Weight and BMI Weight (kg): 49.900 BMI: 22.2 General appearance: alert, awake, oriented, no a cute distress Head/Eyes: atraumatic, normal conjunctiva/sclera , normal eyelids/periorb., normocephalic Neck: full range of motion, non-tender, normal t hyroid, no JVD Cardiovascular: normal heart sounds, regular rat e rhythm Respiratory: aerating well, clear to auscultatio n Abdomen: non-tender, normal bowel sounds, soft, no distention Extremities: moves all, no calf tenderness, no e tk Neuro/BENZENE WASHER: alert, oriented X 3, CNII-XII intact, normal speech, no motor deficits, no sensory deficits Skin: dry, intact Results Findings/Data: Laboratory Tests: 04/13 04/13 04/13 04/12 04/12 1544 1106 0711 1944 1944 Chemistry POC Glucose (70 - 110 MG/DL) 83 85 90 143 H 143 H Radiology data: Laboratory Tests 04/13 04/13 04/13 04/12 04/12 1544 1106 0711 1944 1944 Chemistry POC Glucose (70 - 110 MG/DL) 83 85 90 143 H 143 H 04/12 04/12 04/12 04/11 1537 1150 0658 1055 Chemistry Sodium (134 - 147 mEq/L) 142 Potassium (3.4 - 5.0 mEq/L) 4.6 Chloride (100 - 108 mEq/L) 106 Carbon Dioxide (21 - 33 mEq/l) 31 Anion Gap (0 - 20) 10 BUN (7 - 18 mg/dL) 10 Creatinine (0.6 - 1.3 mg/dL) 1.0 Glomerular Filtr Rate (70 - 80) 59.1 L Glucose (70 - 110 mg/dL) 73 POC Glucose (70 - 110 MG/DL) 171 H 161 H 111 H Calcium (8.0 - 10.5 mg/dL) 8.5 Laboratory Tests 04/12 04/12 04/11 09 0857 1055 Coagulation INR (0.8 - 1.2) 1.0 PT Patient/Control Mix (9.3 - 12.9 SECONDS) 10 .9 Activated Coag Time (SECONDS) 224 225 H Laboratory Tests 04/11 1055 Hematology WBC (4.5 - 11.0 x10 3/uL) 8.3 RBC (3.54 - 5.02 x10 6/uL) 4.68 Hgb (11.0 - 15.0 g/dL) 9.6 L Hct (33.0 - 45.0 %) 32.7 L MCV (81.0 - 99.0 fL) 69.9 L MCH (27.0 - 33.0 pg) 20.5 L MCHC (33.0 - 37.0 g/dL) 29.4 L RDW (11.5 - 14.5 %) 23.4 H Plt Count (150 - 400 x10 3/uL) 425 H MPV (7.0 - 9.0 fL) 9.1 H Neut % (Auto) (56.0 - 77.0 %) 58.5 Lymph % (Auto) (14.0 - 32.0 %) 29.8 Benzie % (Auto) (4.8 - 9.0 %) 7.3 Eos % (Auto) (0.3 - 3.7 %) 2.4 Baso % (Auto) (0.0 - 2.0 %) 1.6 Neut # (Auto) (2.0 - 7.6 x10 3/uL) 4.84 Lymph # (Auto) (1.0 - 3.8 x10 3/uL) 2.46 Benzie # (Auto) (0.1 - 0.8 x10 3/uL) 0.60 Eos # (Auto) (0.0 - 0.2 x10 3/uL) 0.20 Baso # (Auto) (0.0 - 0.2 x10 3/uL) 0.13 Abs Immat Gran (auto) (0.00 - 0.03 x10 3/uL) 0. 03 Add Manual Diff NO Immature Gran % (0.0 - 2.0 %) 0.4 Nucleated RBC % (0 - 0 %) 0.0 Nucleated RBCs # (Man) (0.0 - 0.1 x10 3/uL) 0.0 0 Anisocytosis 2+ Microcytosis 2+ Macrocytosis 1+ Target Cells 1+ Elliptocytes FEW Schistocytes FEW Diagnosis, Assessment Plan Free Text A P: severe PVD CAD DM HTN HLD severe PVD cardiology consult Angioplasty of totally occluded left SFA stent and angiogram on plavix /lipitor vascular surgeon consult CAD-- continue home med DM-- hold metformin -- sliding scale HTN -- on lisinopril DVTP--lovenox Consultants: cardiology Quality: Gen Med Crit Care Current Medications Current medication review: Current Medications Sig/Serenity Start time Last Medication Dose Route Stop Time Status Admin Aspirin 81 MG DAILY 04/14 900 AC PO 05/14 0859 Lidocaine 1 PATCH DAILY 04/14 900 DCr TOPICAL 05/14 0859 Lisinopril 10 MG BEDTIME 04/13 2100 AC PO 05/13 2059 Ropinirole HCl 4 MG BEDTIME 04/13 2100 DC PO 05/13 205 Lidocaine 1 PATCH DAILY 04/13 1645 UNVr TOPICAL 05/13 1632 Dextrose/Water 125 ML ASDIR PRN 04/13 1600 CKD IV 05/13 1559 Dextrose/Water 250 ML ASDIR PRN 04/13 1600 CKD IV 05/13 1559 Glucagon 1 MG ASDIR PRN 04/13 1600 AC IM 05/13 1559 Clopidogrel Bisulfate 75 MG DAILY 04/13 09 AC 04/13 PO 05/13 0859 0829 Ropinirole HCl 4 MG BID 04/13 09 AC 04/13 PO 05/13 0621 0829 Insulin Human Lispro 0 AC HS 04/13 0730 AC SUBQ 05/13 0729 Acetaminophen/ 1 TAB Q6H PRN PRN 04/13 0630 AC 1 06/13 Codeine Phosphate PO 04/18 0629 1542 Acetaminophen 650 MG Q6H PRN PRN 04/13 0330 AC PO 05/13 0329 Acetaminophen 0 .STK-MED ONE 04/13 0307 DC .ROUTE Lisinopril 0 .STK-MED ONE 04/12 2241 DC .ROUTE Fentanyl Citrate 100 MCG PACU Q10MIN PRN PRN 0730 DC IV 04/12 1721 Fentanyl Citrate 50 MCG PACU Q10MIN PRN PRN 9 0730 DC IV 04/12 1721 Hydralazine HCl 5 MG PACU Q10MIN PRN PRN 04/12 0 730 DC IV 04/12 1721 Hydrocodone Bitart/ 1 TAB PACU ONCE 04/12 0730 D C Acetaminophen PO 04/12 1721 Hydromorphone HCl 1 MG PACU Q10MIN PRN PRN 04/12 0730 DC IV 04/12 1721 Hydromorphone HCl 0.5 MG PACU Q5MIN PRN PRN 30 DC IV 04/12 1721 Insulin Human Lispro 0 PACU ONCE PRN 04/12 0730 DC SUBQ 04/12 1721 Labetalol HCl 5 MG PACU Q10MIN PRN PRN 04/12 073 0 DC IV 04/12 1721 Meperidine HCl 12.5 MG PACU ONCE PRN 04/12 0730 DC IV 04/12 1721 Morphine Sulfate 2 MG PACU Q10MIN PRN PRN 04/12 0730 DC IV 04/12 1721 Ondansetron HCl 4 MG PACU ONCE PRN 04/12 0730 DC IV 04/12 1721 Ropivacaine 150 MG ASDIR PRN 04/12 0730 DC LOCAL 04/12 1721 Tramadol HCl 50 MG PACU ONCE 04/12 0730 DC PO 04/12 1721 Acetaminophen 1,000 MG PREOP ONCALL 04/11 1130 C KD PO 05/11 2359 Lactated Ringer's 1,000 ML PREOP ONCALL 04/11 11 30 AC IV 05/11 2359 Lidocaine HCl 2 ML PREOP ONCALL 04/11 1130 AC LOCAL 05/11 2359 Lidocaine HCl 2 ML PREOP ONCALL 04/11 1130 AC LOCAL 05/11 2359 Sodium Chloride 500 ML PREOP ONCALL 04/11 1130 A C IV 05/11 2359 Sodium Chloride 500 ML PREOP ONCALL 04/11 1130 A C IV 05/11 2359 Sodium Chloride 1,000 ML PREOP ONCALL 04/11 1130 AC IV 05/11 2359 Sodium Chloride 5 ML ASDIR PRN 04/11 1130 AC IV 05/11 1129 Sodium Chloride 10 ML ASDIR PRN 04/11 1130 AC IV 05/11 1129 Sodium Chloride 250 ML ASDIR PRN 04/11 1130 AC IV 05/11 1129 Home Medications: metFORMIN (GLUCOPHAGE) 1,000 MG PO BID rOPINIRole (REQUIP) 4 MG PO BID LISINOPRIL (ZESTRIL) 10 MG PO DAILY FLUTICASONE PROPIONATE (FLOVENT HFA 44 MCG/ACT) 2 PUFF INH RTBID ATORVASTATIN (LIPITOR) 40 MG PO DAILY hydrOXYzine HCL (ATARAX) 25 MG PO Q6H PRN ALLERG IES CLOPIDOGREL (PLAVIX) 75 MG PO DAILY I attest that the foregoing medication list in t he medical record is true, accurate, and complete to the best of my knowled ge. Electronically Signed by Vonda Bell MD on 2 at 1708 Addendum 1: 04/13/22 1711 by Vonda Bell MD note delay enter due to [employer] down yesterday Electronically Signed by Vonda Bell MD on 2 at 1711 RPT #:[id number] END OF REPORT 2022-04-13 13:27:00-00:00 [facility] Cardiology Progress Note REPORT#:[id number] REPORT STATUS: Signed DATE:04/13/22 TIME: 1327 PATIENT: MANJIT NESS UNIT #: [id number] ROOM/BED: [place] [address] : 48 AGE: 72 SEX: F ATTEND: Vonda Bell ADM AUTHOR: Elza Nash DEHAIRER * ALL edits or amendments must be made on the Circular/computer document * Subjective Chief complaint: left leg pain Objective General VS/I O: 24 hour I O ending at 0700: 04/13 0700 04/12 1900 Intake Total 500 Output Total Balance 500 Intake, Oral 500 Number Voids 3 Vital Signs: Date Time Temp Pulse Resp B/P B/P Pulse O2 O2 F low FiO2 Mean Ox Delivery Rate 04/13 1110 36.4 67 18 163/56 91.8 97 Room air 04/13 0716 36.6 88 20 141/61 87.5 95 Room air 04/12 1943 36.3 73 18 149/67 94.1 100 04/12 1538 36.8 78 20 134/55 81.5 96 Nasal cannula 04/12 1457 36.8 75 20 132/62 85.6 97 Nasal cannula PATIENT WEIGHT: Weight (lb): 110 Weight (oz): 0.17 Weight (kg): 49.900 Medications: Active Meds + DC'd Last 24 Hrs Aspirin (ASPIRIN) 81 MG DAILY PO Lisinopril (ZESTRIL) 10 MG BEDTIME PO Ropinirole HCl (REQUIP) 4 MG BEDTIME PO (DC) Clopidogrel Bisulfate (Plavix) 75 MG DAILY PO Ropinirole HCl (REQUIP) 4 MG BID PO Insulin Human Lispro (HUMALOG) 0 AC HS SUBQ Acetaminophen/Codeine Phosphate (TYLENOL W CODEI NE NO.3) 1 TAB Q6H PRN PRN PO Acetaminophen (TYLENOL) 650 MG Q6H PRN PRN PO Fentanyl Citrate (SUBLIMAZE) 100 MCG PACU Q10MIN PRN PRN IV (DC) Fentanyl Citrate (SUBLIMAZE) 50 MCG PACU Q10MIN PRN PRN IV (DC) Hydralazine HCl (APRESOLINE) 5 MG PACU Q10MIN AR N PRN IV (DC) Hydrocodone Bitart/Acetaminophen (NORCO 5/325) 1 TAB PACU ONCE PO (DC) Hydromorphone HCl (DILAUDID) 1 MG PACU Q10MIN AR N PRN IV (DC) Hydromorphone HCl (DILAUDID) 0.5 MG PACU Q5MIN P RN PRN IV (DC) Insulin Human Lispro (HUMALOG) 0 PACU ONCE PRN S UBQ (DC) Labetalol HCl (LABETALOL HCL) 5 MG PACU Q10MIN P RN PRN IV (DC) Meperidine HCl (DEMEROL 50MG/ML) 12.5 MG PACU ON CE PRN IV (DC) Morphine Sulfate (morphine SULFATE) 2 MG PACU Q1 0MIN PRN PRN IV (DC) Ondansetron HCl (ZOFRAN) 4 MG PACU ONCE PRN IV ( DC) Ropivacaine (NAROPIN 0.5% 150 MG/30mL) 150 MG DIR PRN LOCAL (DC) Tramadol HCl (ULTRAM) 50 MG PACU ONCE PO (DC) Acetaminophen (TYLENOL EXTRA STRENGTH) 1,000 MG PREOP ONCALL PO (CKD) Lactated Ringer's (LACTATED RINGERS) 1,000 ML AR EOP ONCALL IV Lidocaine HCl (LIDOCAINE HCL/PF) 2 ML PREOP ONCA LL LOCAL Lidocaine HCl (LIDOCAINE HCL/PF) 2 ML PREOP ONCA LL LOCAL Sodium Chloride (SODIUM CHLORIDE 0.9%) 500 ML AR EOP ONCALL IV Sodium Chloride (SODIUM CHLORIDE 0.9%) 500 ML AR EOP ONCALL IV Sodium Chloride (SODIUM CHLORIDE 0.9%) 1,000 ML PREOP ONCALL IV Sodium Chloride (SODIUM CHLORIDE) 5 ML ASDIR PRN IV Sodium Chloride (SODIUM CHLORIDE) 10 ML ASDIR AR N IV Sodium Chloride (SODIUM CHLORIDE 0.9%) 250 ML DIR PRN IV Physical Exam General appearance: alert, awake, oriented, no a cute distress, pleasant, conversational Neck: non-tender, no JVD Cardiovascular: CV assessment: regular rate and rhythm Respiratory: decreased breath sounds, on oxygen, no distress Abdomen: soft, non-tender, normal bowel sounds, no distention, no guarding Genitourinary: no flank pain Lower extremity: LE assessment: abnormal pedal pulse (Left foot) , abnormal peripheral pulse ( left foot), no edema Neuro/BENZENE WASHER: alert, normal speech Skin: dry, intact, normal color Psychiatry: normal affect, normal mood Results Findings/Data: Laboratory Tests 04/13 04/13 04/12 04/12 04/12 1106 0711 1945 1945 1537 Chemistry POC Glucose (70 - 110 MG/DL) 85 90 143 H 143 H 171 H Results: labs reviewed, vital signs reviewed, [facility] personally rev'd Telemetry Interpretation: sinus rhythm Diagnosis, Assessment Plan Problem List/A P: 1. Peripheral vascular disease 2. Coronary artery disease 3. Tobacco abuse counseling Free Text DxA P Notes Free Text DxA P Notes: This is a 72-year-old female with past medical h istory of coronary artery disease with prior PCI and stents, diabetes gloria itus, hypertension, hyperlipidemia, lifelong smo ker, known severe peripheral vascular disease, COPD who has been having left lower extremity pain. S he was taken for elective peripheral angiogram and found to have severe pe ripheral vascular disease bilaterally, status post balloon angioplasty wit h partial flow return on the left SFA. Vascular surgery has been consulted. 1. Severe bilateral PVD status post balloon angioplasty with partial kameron w return on the left SFA. Vascular surgery consult Continue Plavix, aspirin, statin 2. Coronary artery disease with prior PCI/stent No chest Continue medical therapy 3. Tobacco abuse/COPD Strongly encouraged to quit smoking 4. Hypertension Continue lisinopril 5. Diabetes mellitus Manage per admitting physician 6. Hyperlipidemia Continue statin at 1624 Electronically Signed by Whit Villareal MD on at 1433 RPT #:[id number] END OF REPORT 2022-04-13 08:59:00-00:00 [facility] ([facility]) Cardiology Consultation REPORT#:[id number] REPORT STATUS: Signed DATE:04/13/22 TIME: 858 PATIENT: MANJIT NESS UNIT #: [id number] ROOM/BED: 3345-1 : 48 AGE: 72 SEX: F ATTEND: Vonda Bell ADM AUTHOR: Elza Nash DEHAIRER * ALL edits or amendments must be made on the Circular/computer document * History of Present Illness HPI Requesting Clinician: Dr. Grey Reason for consult: PAD Chief complaint: left leg pain PCP: Dr. Grey HPI: Date of Service: 04/12/2022 This is a 72-year-old female with past medical h istory of coronary artery disease with prior PCI and stents, diabetes gloria itus, hypertension, hyperlipidemia, lifelong smo ker, known severe peripheral vascular disease, COPD who has been having left lower extremity pain. S he was taken for elective peripheral angiogram and found to have severe pe ripheral vascular disease bilaterally, status post balloon angioplasty wit h partial flow return on the left SFA. Vascular surgery has been consulted. History - Adult longitudinal Past medical history: Reports: COPD, Coronary artery disease, Diabetes mellitus, Hypertension, Dyslipidemia, Periph arterial disease, Prior [place]. Denies: Atrial fibrillation, Congestive heart failure. Past surgical history: Reports: Vascular procedure, PCI. Alcohol use: Denies EtOH use Drug use: Denies recreational drugs Smoking status for patients 13 years old or olde r: Current every day smoker Date last smoked: 04/11/22 Home medications: Home Medications: metFORMIN (GLUCOPHAGE) 1,000 MG PO BID rOPINIRole (REQUIP) 4 MG PO BID LISINOPRIL (ZESTRIL) 10 MG PO DAILY FLUTICASONE PROPIONATE (FLOVENT HFA 44 MCG/ACT) 2 PUFF INH RTBID ATORVASTATIN (LIPITOR) 40 MG PO DAILY hydrOXYzine HCL (ATARAX) 25 MG PO Q6H PRN ALLERG IES CLOPIDOGREL (PLAVIX) 75 MG PO DAILY Allergies: Coded Allergies: bee venom protein (honey bee) (Severe, HIVES 03/25) Penicillins (HIVES 04/13/22) Ambulatory status: Independent Review of Systems Constitutional: Denies: generalized weakness. Respiratory: Denies: SOB. Cardiovascular: Denies: chest pain, edema. GI: Denies: abdominal pain, melena, vomiting. Musculoskeletal: extremity pain (LLE). Objective General VS/I O: Vital Signs: Date Time Temp Pulse Resp B/P B/P Pulse O2 O2 Flow FiO2 Mean Ox Delivery Rate 04/13 716 36.6 88 20 141/61 87.5 95 Room air 04/12 1943 36.3 73 18 149/67 94.1 100 04/12 1538 36.8 78 20 134/55 81.5 96 Nasal cannula 04/12 1457 36.8 75 20 132/62 85.6 97 Nasal cannula 24 hour I O ending at 0700: 04/13 0700 04/12 1900 Intake Total 500 Output Total Balance 500 Intake, Oral 500 Number Voids 3 PATIENT WEIGHT: Weight (lb): 110 Weight (oz): 0.17 Weight (kg): 49.900 Medications: Active Meds + DC'd Last 24 Hrs Lisinopril (ZESTRIL) 10 MG BEDTIME PO Ropinirole HCl (REQUIP) 4 MG BEDTIME PO (DC) Clopidogrel Bisulfate (Plavix) 75 MG DAILY PO Ropinirole HCl (REQUIP) 4 MG BID PO Insulin Human Lispro (HUMALOG) 0 AC HS SUBQ Acetaminophen/Codeine Phosphate (TYLENOL W CODEI NE NO.3) 1 TAB Q6H PRN PRN PO Acetaminophen (TYLENOL) 650 MG Q6H PRN PRN PO Hydralazine HCl (APRESOLINE) 0 .STK-MED ONE .ROU TE (DC) Fentanyl Citrate (SUBLIMAZE) 0 .STK-MED ONE .ROU TE (DC) Fentanyl Citrate (SUBLIMAZE) 0 .STK-MED ONE .ROU TE (DC) Fentanyl Citrate (SUBLIMAZE) 100 MCG PACU Q10MIN PRN PRN IV (DC) Fentanyl Citrate (SUBLIMAZE) 50 MCG PACU Q10MIN PRN PRN IV (DC) Hydralazine HCl (APRESOLINE) 5 MG PACU Q10MIN AR N PRN IV (DC) Hydrocodone Bitart/Acetaminophen (NORCO 5/325) 1 TAB PACU ONCE PO (DC) Hydromorphone HCl (DILAUDID) 1 MG PACU Q10MIN AR N PRN IV (DC) Hydromorphone HCl (DILAUDID) 0.5 MG PACU Q5MIN P RN PRN IV (DC) Insulin Human Lispro (HUMALOG) 0 PACU ONCE PRN S UBQ (DC) Labetalol HCl (LABETALOL HCL) 5 MG PACU Q10MIN P RN PRN IV (DC) Meperidine HCl (DEMEROL 50MG/ML) 12.5 MG PACU ON CE PRN IV (DC) Morphine Sulfate (morphine SULFATE) 2 MG PACU Q1 0MIN PRN PRN IV (DC) Ondansetron HCl (ZOFRAN) 4 MG PACU ONCE PRN IV ( DC) Ropivacaine (NAROPIN 0.5% 150 MG/30mL) 150 MG DIR PRN LOCAL (DC) Tramadol HCl (ULTRAM) 50 MG PACU ONCE PO (DC) Acetaminophen (TYLENOL EXTRA STRENGTH) 1,000 MG PREOP ONCALL PO (CKD) Lactated Ringer's (LACTATED RINGERS) 1,000 ML AR EOP ONCALL IV Lidocaine HCl (LIDOCAINE HCL/PF) 2 ML PREOP ONCA LL LOCAL Lidocaine HCl (LIDOCAINE HCL/PF) 2 ML PREOP ONCA LL LOCAL Sodium Chloride (SODIUM CHLORIDE 0.9%) 500 ML AR EOP ONCALL IV Sodium Chloride (SODIUM CHLORIDE 0.9%) 500 ML AR EOP ONCALL IV Sodium Chloride (SODIUM CHLORIDE 0.9%) 1,000 ML PREOP ONCALL IV Sodium Chloride (SODIUM CHLORIDE) 5 ML ASDIR PRN IV Sodium Chloride (SODIUM CHLORIDE) 10 ML ASDIR AR N IV Sodium Chloride (SODIUM CHLORIDE 0.9%) 250 ML DIR PRN IV Physical Exam General appearance: alert, awake, oriented, no a cute distress, pleasant, conversational, mental status normal Neck: non-tender, no JVD Cardiovascular: CV assessment: regular rate and rhythm Respiratory: decreased breath sounds, on oxygen, no distress Abdomen: soft, non-tender, normal bowel sounds, no distention, no guarding Genitourinary: no flank pain Lower extremity: LE assessment: abnormal pedal pulse (Left foot) , abnormal peripheral pulse ( left foot), no edema Neuro/BENZENE WASHER: alert, normal speech Psychiatry: normal affect, normal mood Results Findings/Data: Laboratory Tests 04/13 04/12 04/12 04/12 04/12 0711 1945 1945 1537 1150 Chemistry POC Glucose (70 - 110 MG/DL) 90 143 H 143 H 171 H 161 H Laboratory Tests 04/12 921 Coagulation Activated Coag Time (SECONDS) 224 Results: no new labs, vital signs reviewed, rhyt hm personally rev'd EKG Interpretation: normal sinus rhythm Diagnosis, Assessment Plan Problem List/A P: 1. Peripheral vascular disease 2. Coronary artery disease 3. Tobacco abuse counseling Plan discussed with: patient, nurse Free Text DxA P Notes Free Text DxA P Notes: Date of Service: 04/12/2022 This is a 72-year-old female with past medical h istory of coronary artery disease with prior PCI and stents, diabetes gloria itus, hypertension, hyperlipidemia, lifelong smo ker, known severe peripheral vascular disease, COPD who has been having left lower extremity pain. S he was taken for elective peripheral angiogram and found to have severe pe ripheral vascular disease bilaterally, status post balloon angioplasty wit h partial flow return on the left SFA. Vascular surgery has been consulted. 1. Severe bilateral PVD status post balloon angioplasty with partial kameron w return on the left SFA. Vascular surgery consult Continue Plavix, aspirin, statin 2. Coronary artery disease with prior PCI/stent No chest Continue medical therapy 3. Tobacco abuse/COPD Strongly encouraged to quit smoking 4. Hypertension Continue lisinopril 5. Diabetes mellitus Manage per admitting physician 6. Hyperlipidemia Continue statin Appreciate the referral. at 0920 Electronically Signed by Whit Villareal MD on at 7582 RPT #:[id number] END OF REPORT 2022-04-12 09:37:00-00:00 [id number] [address] PATIENT NAME: MANJIT NESS ADMIT DATE: 2 ACCOUNT NO: [id number] ROOM NO: [facility] AGE: 72 REPORT TYPE: OPERATIVE REPORT SEX: F ADMITTING PHYSICIAN:Vonda Bell MD ATTENDING PHYSICIAN:Vonda Bell MD OPERATION DATE: 04/12/2022 PREOPERATIVE DIAGNOSIS: POSTOPERATIVE DIAGNOSIS: PROCEDURE PERFORMED: 1. Peripheral angiogram. 2. Angioplasty of totally occluded left SFA sten t. I used a 6 x 150 mm balloon. SURGEON: Manny Grey MD ACCOUNTING PROFESSOR: ANESTHESIA: INDICATIONS: Severe peripheral vascular disease with severe pain. ACCESS: Right femoral artery, 6-Serbian closed wi th manual pressure. PROCEDURE IN DETAIL: After risks, benefits and a lternatives were explained to the patient, procedure with informed consent, th e patient was brought to the cardiac catheterization laboratory. Anesthesia w as applied as the patient in the past. Would not stay still for the procedure and then accessed the right femoral artery using ultrasound guidance and a m icropuncture kit and placed a 6-Serbian [place] sheath and took a crossover sheath into the distal aorta with a [place] [employer]vantage wire acros s to the other side and then placed a 6-Serbian 45 cm destination sheath. Before the angiogram, there was a VOLTAGE REGULATOR ASSEMBLER of the SFA on the left. Using a [place] [employer]vantage wire and NaviCross was able to go through the stent all the way to the knee level and then use d a 6 x 150 mm balloon, did angioplasty established mild flow. The flow was very sluggish in the SFA. I decided to abort the procedure as there is diffu se severe peripheral vascular disease even below the knee. There is no anterio r tibial or posterior tibial arteries and we will plan for her to consult [facility] Vascular Surgery on further action plan to try to help this patient. Then, I removed the wire and sheath and manual pressure was used for hemostasis. FINDINGS: 1. Left SFA is totally occluded at the beginning of the stent, status post balloon angioplasty as above with partial blood flow return. 2. 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 CONCLUSION: Severe periphera l vascular disease bilaterally, status post balloon angioplasty with partial flow return on the left SFA. RECOMMENDATION: Consult with Vascular Felix rgery. I do not feel that this patient will be amenable for endovascular intervention. However, we will discuss further with Vascular Surgery. Dictated By: Manny Grey MD Date Dictated: 04/12/2022 09:37:24 Date Transcribed: 04/12/2022 11:44:37 /BHARATHI Receipt ID: [id number] Authenticated by Manny Grey MD On 05/10/2022 01:19:24 PM Electronically Signed by Manny Grey MD on at 0119 PATIENT NAME: MANJIT NESS 4505 2022-04-11 11:13:00-00:00 [id number] [place] [address] PATIENT NAME: MANJIT NESS ADMIT DATE: ACCOUNT NO: [id number] ROOM NO: AGE: 72 REPORT TYPE: eELECTROCARDIOGRAM REPORT SEX: F ADMITTING PHYSICIAN: ATTENDING PHYSICIAN:Manny Grey MD Order: [id number] Test Reason : PRE OP Test Date/Time Stamp: SunApr 11 2022 11:13:41 Blood Pressure : / mmHG Vent. Rate : 078 BPM Atrial Rate : 078 BPM P-R Int : 118 ms QRS Dur : 078 ms QT Int : 402 ms P-R-T Axes : 007 066 062 degree s QTc Int : 458 ms Normal sinus rhythm Normal ECG PRE_OP Confirmed by LAMAR PEARCE MD ([id number]) on 04/11/20 3:52:48 PM Referred By: Manny Grey Confirmed by:LAMAR BEE MD at 1552 PATIENT NAME: MANJIT NESS [id number] 2021-11-30 13:07:00-00:00 [id number] [address] PATIENT NAME: MANJIT NESS ADMIT DATE: 2 ACCOUNT NO: [id number] ROOM NO: AGE: 72 REPORT TYPE: CARDIAC CATHETERIZATION REPORT SEX: F ADMITTING PHYSICIAN: ATTENDING PHYSICIAN:Manny Grey MD PROCEDURE DATE: 11/30/2021 PROCEDURE PERFORMED: 1. Peripheral angiogram. 2. Attempt of a percutaneous intervention on the totally occluded right SFA that failed. ACCESS: Left femoral artery, 6-Serbian closed wit h Mynx closure device. COMPLICATIONS: None. BLEEDING: Less than 10 mL. TOTAL SEDATION TIME: 65 minutes. DESCRIPTION OF PROCEDURE: After risks, benefits, and alternatives were explained, the patient agreed to proceed and sig lorri informed consent. The patient was brought into the cardiac catheteriza tion laboratory, prepped and draped in usual sterile fashion. I used fentanyl and Versed in incremental doses to achieve adequate moderate sedat ion, then accessed left common femoral artery using ultrasound guidance fluoroscopy and micropuncture kit and placed 6-Serbian [place] sheath. The entrance point was above the stent and the femoral artery. Then, I took an Omniflush cathet er into the aorta and using [place] [employer]vant[employer], crossed into the right side and placed the wire in the left femoral artery and then took a Destinati on sheath and exchange of the 6-Serbian [place] sheath and did john ogram and the right SFA is occluded ostially and it is a long VOLTAGE REGULATOR ASSEMBLER. 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 PLAN: We will reschedule the patient to reattemp t this percutaneous intervention with a retrograde approach and anes thesia to be available. Dictated By: Manny Grey MD WT: CATH:DIANA/LUCA/MICHEL PATIENT NAME: MANJIT NESS [id number] Conf#: [id number]/DID#: [id number] Authenticated by Manny Grey MD On 04/05/2022 09:55:39 AM Electronically Signed by Manny Grey MD on at 0955 PATIENT NAME: MANJIT NESS 8713 2021-11-28 15:16:00-00:00 [id number] [place] [address] PATIENT NAME: MANJIT NESS ADMIT DATE: ACCOUNT NO: [id number] ROOM NO: AGE: 71 REPORT TYPE: eELECTROCARDIOGRAM REPORT SEX: F ADMITTING PHYSICIAN: ATTENDING PHYSICIAN:Manny Grey MD Order: [id number] Test Reason : PREOP Test Date/Time Stamp: SunNov 28 2021 15:16:26 Blood Pressure : / mmHG Vent. Rate : 072 BPM Atrial Rate : 072 BPM P-R Int : 108 ms QRS Dur : 086 ms QT Int : 378 ms P-R-T Axes : -09 071 029 degre es QTc Int : 413 ms Sinus rhythm with short AR Abnormal ECG PRE_OP Confirmed by LAMAR PEARCE MD ([id number]) on 11/29/19 22 5:04:47 PM Referred By: Manny Grey Confirmed by:LAMAR BEE MD at 9888 PATIENT NAME: MANJIT NESS 8713 2021-04-26 15:41:00-00:00 [facility] ([facility]) Operative Note - Full REPORT#:[id number] REPORT STATUS: Signed DATE:04/26/21 TIME: 1541 PATIENT: MANJIT NESS UNIT #: [id number] ROOM/BED: : 48 AGE: 71 SEX: F ATTEND: Roberto Ghosh MD ADM AUTHOR: Rayne Ghosh MD * ALL edits or amendments must be made on the el ectronic/computer document * Operative Report ORM Surgeries: Surgery Date and Time: 04/26/2021 0915 Primary Procedure: LLE ARTERIOGRAM, POSSIBLE AN GIOPLASTY, Start date: 04/26/21 Start time: 1330 Pre-procedure diagnosis: 1. Bilateral superficial femoral artery thrombos is 2. Aortoiliac disease with atherosclerosis of th e abdominal aorta 3. Bilateral lower extremity rest pain left wor se than right with atherosclerosis of washoe arteries Post-procedure diagnosis: same Procedures performed: 1. Percutaneous ultrasound-guided active access right common femoral artery with images maintained for record [id number] 2. Abdominal aortogram 65899 3. Left lower extremity unilateral arteriogram 7 9029 4. Placement of left superficial femoral and popliteal artery stent graft 5 mm x 25 cm Viabahn and 6 mm x 10 cm Viabahn's with post angioplasty 91744 5. Percutaneous pharmacomechanical thrombectomy with 6 Cat Penumbra device of left popliteal artery for possible thrombus 3718 4 6. Right external iliac artery drug-coated ballo on angioplasty 50284 Technique/Procedure: The patient was brought into the operating room prepped and draped in usual sterile manner. Percutaneous ultrasound-guided a ctive access was obtained to right common femoral artery microcatheter system and exchanged over a Glidewire to a 6 Serbian 10 cm sheath. An Omni Flush cath w as placed in the abdominal aorta and abdominal aortogram was performed. Thi s is then pulled out aortic bifurcation and iliac angiography was completed. Glidewire was used to extend the orifice catheter down to left common femoral artery and left lower extremity arteriogram was completed. An advantage wire and Francois cross catheter were used to initially cross the occlu ded superficial femoral-popliteal arteries and the 6 Serbian 90 cm sheath was advanced to the distal s uperficial femoral artery and proximal popliteal artery. Thrombectomy was comp leted of the popliteal artery with the penumbra device with a 6 cat system ove r an 018 wire. The remaining thrombus within the stent was treated with a 5 m m x 25 cm Viabahn stent graft built up with a 6 mm x 10 cm Viabahn stent graft up to the collaterals to the profunda femoris. This is post angioplasty with a 6 mm balloon with good result. There is good flow through the foot to d orsalis pedis and plantar vessels on completion. The sheath was then pulle d back and right iliac angiography was completed re demonstrating the severe stenosis in the ostium the right external iliac artery. 7 mm drug-coated balloon angioplasty was completed of the right external iliac artery with good result. Angio-Seal device was then used to close right groin without difficulty. Th e patient tolerated the procedure well. There are no complications. The patient was stable and discharged to the PACU. Patient may have plan re turn to the operating for treatment of her right superficial femoral arter y occlusion. Primary Surgeon: Dr. Rayne Ghosh Liquefaction And Regasification Helper(s): none Anesthesia: general anesthesia Operative findings: Abdominal gram demonstrates patent abdominal aor ta with heterogeneous disease throughout and dilatation wi th intervening area of stenosis to approximately 50 to 60%. The celiac trunk has weak flow with poor flow to the common hepatic arteries and splenic arteries. The supra mesente kristin artery has good antegrade flow noted. All branches are patent distally. Th e infra mesenteric artery has focal stenosis at the ostium to the 80% with pos t not dilatation remaining vessel appears to be patent to branches distally. Bilateral renal arteries are patent with approximately 30% stenosis a t the ostium of both vessels with good nephrograms. Bilateral common iliac arteries are patent with patent right common iliac artery stent. Bilateral internal il iac arteries have stenosis greater than 70 to 80% multifocal parts of the v essel. The right external leg artery has a focal 70% stenosis. The lef t external iliac artery is patent down to the common femoral artery . The right common femoral arteries patent profunda femoris with occluded right superficial femoral artery. The left common femoral artery is patent with a mcfp ed left profunda femoris occlusion by previous stent placement with collateraliza tion to the profunda femoris artery through femoral circumflex collaterals. The superficial femoral artery stents are occluded throughout. This extends into the poplit eal artery. There is reconstitution of the popliteal artery at the knee with flow dista lly to the anterior tibial artery, tibial trunk, peroneal and posterior tib ial arteries. The anterior artery on the left has early takeoff behind the knee. There is diffuse stenosis extending to the peroneal and posterior tibial a rteries and anterior arteries distally but they are patent extending to the dorsalis pedis and plantar vessels and branches at the malleolus with no hemodynami virginia significant stenosis noted. Complications: none Estimated blood loss in ml's: none Specimens removed/altered: thrombus Implant(s): stent grafts at 1546 RPT #:[id number] END OF REPORT 2021-04-26 15:32:00-00:00 [facility] ([facility]) Brief Op Note REPORT#:[id number] REPORT STATUS: Signed DATE:04/26/21 TIME: 1532 PATIENT: MANJIT NESS UNIT #: [id number] ROOM/BED: : 48 AGE: 71 SEX: F ATTEND: Roberto Ghosh MD ADM AUTHOR: Rayne Ghosh MD * ALL edits or amendments must be made on the Circular/computer document * Op/Inv Proc Note - Brief ORM Surgeries: Surgery Date and Time: 04/26/2021 0915 Proposed Primary Procedure: LLE ARTERIOGRAM, PO SSIBLE ANGIOPLASTY, Pre-procedure diagnosis: 1. Bilateral superficial femoral artery thrombos is 2. Aortoiliac disease with atherosclerosis of th e abdominal aorta 3. Bilateral lower extremity rest pain left wors e than right with atherosclerosis of washoe arteries Post-procedure diagnosis: same as pre procedure dx Procedures performed: 1. Percutaneous ultrasound-guided active access right common femoral artery with images maintained for record [id number] 2. Abdominal aortogram 61316 3. Left lower extremity unilateral arteriogram 7 9139 4. Placement of left superficial femoral and popliteal artery stent graft 5 mm x 25 cm Viabahn and 6 mm x 10 cm Viabahn's with post angioplasty 08757 5. Percutaneous pharmacomechanical thrombectomy with 6 Cat Penumbra device of left popliteal artery for possible thrombus 3718 4 6. Right external iliac artery drug-coated ballo on angioplasty 91309 Primary Surgeon: Dr. Rayne Ghosh Liquefaction And Regasification Helper(s): none Anesthesia: general anesthesia Findings: Abdominal gram demonstrates patent abdominal aor ta with heterogeneous disease throughout and dilatation wi th intervening area of stenosis to approximately 50 to 60%. The celiac trunk has weak flow with poor flow to the common hepatic arteries and splenic arteries. The supra mesente kristin artery has good antegrade flow noted. All branches are patent distally. Th e infra mesenteric artery has focal stenosis at the ostium to the 80% with pos t not dilatation remaining vessel appears to be patent to branches distally. Bilateral renal arteries are patent with approximately 30% stenosis a t the ostium of both vessels with good nephrograms. Bilateral common iliac arteries are patent with patent right common iliac artery stent. Bilateral internal il iac arteries have stenosis greater than 70 to 80% multifocal parts of the v essel. The right external leg artery has a focal 70% stenosis. The lef t external iliac artery is patent down to the common femoral artery . The right common femoral arteries patent profunda femoris with occluded right superficial femoral artery. The left common femoral artery is patent with a mcfp ed left profunda femoris occlusion by previous stent placement with collateraliza tion to the profunda femoris artery through femoral circumflex collaterals. The superficial femoral artery stents are occluded throughout. This extends into the poplit eal artery. There is reconstitution of the popliteal artery at the knee with flow dista lly to the anterior tibial artery, tibial trunk, peroneal and posterior tib ial arteries. The anterior artery on the left has early takeoff behind the knee. There is diffuse stenosis extending to the peroneal and posterior tibial a rteries and anterior arteries distally but they are patent extending to the dorsalis pedis and plantar vessels and branches at the malleolus with no hemodynami virgin[place] significant stenosis noted. Complications: none Estimated blood loss in ml's: none Specimens removed/altered: thrombus at 0769 RPT #:[id number] END OF REPORT 2021-04-26 15:27:00-00:00 [facility] ([facility]) Brief Discharge Note w/Med Rec REPORT#:[id number] REPORT STATUS: Signed DATE:04/26/21 TIME: 1527 PATIENT: MANJIT NESS UNIT #: [id number] ROOM/BED: : 48 AGE: 71 SEX: F ATTEND: Roberto Ghosh MD ADM AUTHOR: Rayne Ghosh MD * ALL edits or amendments must be made on the el [employer]/computer document * Med Rec Med Rec Discharge meds: Continue taking these medications: metFORMIN (GLUCOPHAGE) (Unknown Strength) TAB Unknown Dose ORAL TWICE DAILY. LISINOPRIL (ZESTRIL) (Unknown Strength) TAB Unknown Dose ORAL DAILY. SIMVASTATIN (ZOCOR) (Unknown Strength) TAB Unknown Dose ORAL DAILY. CLOPIDOGREL (PLAVIX) 75 MG TAB 75 MILLIGRAM ORAL DAILY. rOPINIRole (REQUIP) 2 MG TAB 2 MILLIGRAM ORAL THREE TIMES A DAY. BUDESONIDE/FORMOTEROL (SYMBICORT 160/4.5 MCG/ACT 10.2GM) 160 MCG-4.5 MCG/ ACTUATION INHALER 2 PUFF INHALATION RT - FOUR TIMES DAILY. Objective VS/I O Last Documented: Result Date Time Pulse Ox 98 04/26 941 B/P 143/62 04/26 941 O2 Delivery Room air 04/26 941 Temp 96.9 04/26 941 Pulse 53 04/26 941 Resp 18 04/26 941 24 hour I O ending at 0700: 04/26 0700 04/25 1900 Intake Total Output Total Balance Patient 51.8 kg Weight Weight Standing scale Measurement Method Brief Discharge Note w/Med Rec Discharge to: Home/Self Care Pt. condition on discharge: improved Additional Discharge Routines: Attending Follow- Up, Wound/Dressing Care Diet: Res Diet Activity: No Strenuous Activity Wound/dressing care: Clean wound daily, Keep wound clean and dry, OK to shower tomorrow Follow-up Appointments Attending Physician: Attending Physician: Rayne Ghosh MD Attending physician follow up timeframe: In 1-2 weeks at 1527 RPT #:[id number] END OF REPORT 2021-04-25 07:46:00-00:00 [id number] [place] [address] PATIENT NAME: MANJIT NESS ADMIT DATE: ACCOUNT NO: [id number] ROOM NO: AGE: 71 REPORT TYPE: eELECTROCARDIOGRAM REPORT SEX: F ADMITTING PHYSICIAN: ATTENDING PHYSICIAN:Rayne Ghosh MD Order: [id number] Test Reason : PREOP Test Date/Time Stamp: SunApr 25 2021 07:46:58 Blood Pressure : / mmHG Vent. Rate : 056 BPM Atrial Rate : 056 BPM P-R Int : 144 ms QRS Dur : 090 ms QT Int : 452 ms P-R-T Axes : 073 068 076 degree s QTc Int : 436 ms Sinus bradycardia Abnormal ECG PRE_OP Confirmed by PORTIA ADAMS, LAMAR ([id number]) on 021 6:12:46 PM Referred By: Rayne Ghosh Confirmed by:LAMAR PEARCE MD at 0008 PATIENT NAME: MANJIT NESS 8037
[2022-10-20 00:59] LABS: Hematocrit 28.9 % (36.0-45.0); MCV 73.7 fL (80-100); MPV 7.5 fL (7.6-11.3); RBC Red Blood Cell Count 3.93 M/uL (3.86-4.86)
[2022-10-20 01:00] LABS: Absolute Lymphocytes (CBC) 2.6 K/uL (0.7-4.9); Lymphocytes % 29.4 % (15.3-44.8)
[2022-10-20 01:05] LABS: Protime INR 1.15
[2022-10-20 01:28] LABS: ALT/SGPT 15 U/L (13-56); AST/SGOT 12 U/L (15-37); Albumin 3.2 g/dL (3.4-5.0); Alkaline Phosphatase 117 U/L (45-117); BUN Blood Urea Nitrogen 23 mg/dL (7-18); Bicarbonate 32 mEq/L (21-32); Bilirubin Total 0.3 mg/dL (0.2-1.0); Glomerular Filtration Rate 40 ml/min (=/>90); Glucose Level 149 mg/dL (74-106); Magnesium 1.3 mg/dL (1.6-2.4); NT PRO-BNP 1027 pg/mL (<125); Protein, Total 7.5 g/dL (6.4-8.2); Sodium Level 131 mEq/L (136-145); Troponin High Sensitivity 17.5 pg/mL (<58.9)
[2022-10-20 01:29] LABS: Bilirubin Direct < 0.1 mg/dL (0-0.2); Bilirubin Indirect, Calculated ND mg/dL (0.2-0.8)
--- NOTE | 2022-10-20 01:34 | ER ---
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 Coronavirus screen: Vaccine status: Patient reports receiving the 2nd dose of the covid vaccine. Ebola Screen: Patient negative for fever greater than or equal to 101.5 degrees Fahrenheit, and additional compatible Ebola Virus Disease symptoms. Initial Sepsis Screen: Does the patient meet any 2 criteria? No. Patient's initial sepsis screen is negative. Does the patient have a suspected source of infection? No. Patient's initial sepsis screen is negative. Risk Assessment: Do you want to hurt yourself or someone else? Patient reports no desire to harm self or others. 00:00 Method Of Arrival: Wheelchair kl 00:00 Acuity: APOLONIA 2 kl 01:48 Onset of symptoms was October 20, 2022. kd3 Triage Assessment: 00:00 General: Appears distressed, uncomfortable, Behavior is cooperative, anxious. Pain: kl Complains of pain in chest. Cardiovascular: Reports chest pain, shortness of breath, Rhythm is sinus rhythm. GI: Reports nausea. Historical: - Allergies: 00:12 PENICILLINS; kl - PMHx: 00:12 Anxiety; CAD; CHF; COPD; CVA; Diabetes - NIDDM; High Cholesterol; Hypertension; MD; kl - PSHx: 00:12 Cardiac stent; kl - Immunization history:: Adult Immunizations up to date. - Social history:: Smoking status: Patient reports the use of cigarette tobacco products, smokes one pack cigarettes per day. Screenin:47 [facility] ED Fall Risk Assessment (Adult) History of falling in the last 3 months, kd3 including since admission No falls in past 3 months (0 pts) Confusion or Disorientation No (0 pts) Intoxicated or Sedated No (0 pts) Impaired Gait Yes (1 pt) Mobility Assist Device Used Yes (1 pt) Altered Elimination No (0 pt) Score/Fall Risk Level 3 or more points = High Risk Maintained a safe environment. Abuse screen: Denies threats or abuse. Denies injuries from another. Nutritional screening: No deficits noted. Tuberculosis screening: No symptoms or risk factors identified. Assessment: 10/19 23:53 General: Appears uncomfortable, Behavior is cooperative. Pain: Complains of pain in ha1 chest Pain does not radiate. Pain currently is 10 out of 10 on a pain scale. Quality of pain is described as pressure, Pain began suddenly, Is intermittent. Neuro: Level of Consciousness is awake, alert, obeys commands, Oriented to person, place, time, situation. Cardiovascular: Reports chest pain, Heart tones S1 S2 present Capillary refill < 3 seconds Patient's skin is warm and dry. Respiratory: Airway is patent Respiratory effort is even, unlabored, Respiratory pattern is regular, symmetrical. GI: Abdomen is round non-distended, Reports vomiting. GI: Bowel sounds present X 4 quads. : No signs and/or symptoms were reported regarding the genitourinary system. Derm: Skin is fragile, Skin is normal. Musculoskeletal: Circulation, motion, and sensation intact. Range of motion: intact in all extremities. Vital Signs: 10/20 00:00 BP 143 / 69; Pulse 89; Resp 20; Pulse Ox 97% on R/A; Weight 49.44 kg (M); Height 4 ft. kl 11 in. ; 01:05 BP 113 / 64; Pulse 76; Resp 16; Pulse Ox 96% on R/A; kd3 01:42 BP 129 / 68; Pulse 94; Resp 18; Pulse Ox 97% on R/A; kd3 00:00 Body Mass Index 22.02 (49.44 kg, 149.86 cm) ED Course: 10/19 23:50 Patient arrived in ED. ag3 23:53 Amna Mariee MD is Attending Physician. sp3 10/20 00:11 Triage completed. kl 00:13 EKG completed in triage. Results shown to . kl 00:13 Inserted saline lock: 20 gauge in left forearm, using aseptic technique. Blood kl collected. 00:56 XRAY Chest (1 view) In Process Unspecified. EDMS 01:05 Monserrat Butterfield, CONCEPCIÓN is Primary Nurse. kd3 01:47 Arm band placed on left wrist. kd3 01:47 No provider procedures requiring assistance completed. IV discontinued, intact, kd3 bleeding controlled, No redness/swelling at site. Pressure dressing applied. 01:48 Patient has correct armband on for positive identification. Call light in reach. kd3 Administered Medications: 01:42 Drug: Magnesium Oxide PO 400 mg Route: PO; kd3 01:48 Follow up: Response: No adverse reaction kd3 01:42 Drug: Furosemide IVP 20 mg Route: IVP; Site: left forearm; kd3 01:48 Follow up: Response: No adverse reaction kd3 Medication: 01:48 VIS not applicable for this client. kd3 Outcome: 01:33 Discharge ordered by . sp3 01:47 Discharged to home via wheelchair, with family. kd3 01:47 Condition: stable 01:47 Discharge instructions given to patient, family, Instructed on discharge instructions, follow up and referral plans. Demonstrated understanding of instructions, follow-up care. 01:49 Patient left the ED. kd3 Signatures: Dispatcher [employer] EDMS Gillian Iverson RN RN kl Gomez, Alice 3 Amna Mariee MD MD sp3 Monserrat Butterfield RN RN kd3 Jessica Araujo RN RN ha1 Corrections: (The following items were deleted from the chart) 01:43 01:42 BP 129 / 58; Pulse 94bpm; Resp 18bpm; Pulse Ox 97% RA; kd3 kd3
--- NOTE | 2022-10-20 01:34 | EDPHYS ---
Physician Documentation [facility] Name: Mukul Larson Age: 72 yrs Sex: Female : 1950 Arrival Date: 10/19/2022 Time: 23:47 Bed 2 Private MD: ED Physician Amna Mariee HPI: 10/20 00:38 This 72 yrs old Female presents to ER via Wheelchair with complaints of sp3 Vomiting, Chest Pain. 00:38 72-year-old female with a history of CHF, COPD, CVA, diabetes, anxiety, hyperlipidemia sp3 now presents to the ED with chief complaint emesis x1, anxiety and mild chest pressure which has resolved. Patient states that she is nervous about getting sick since she was recently admitted to the hospital and discharged last week. Pain is not severe at all and has mostly resolved. She denies headache, neck pain, current shortness of breath, current chest pain, abdominal pain, current vomiting, diarrhea, rash, pedal edema, changes in her medication, or any other signs or symptoms on review of systems at this time.. Historical: - Allergies: 00:12 PENICILLINS; kl - PMHx: 00:12 Anxiety; CAD; CHF; COPD; CVA; Diabetes - NIDDM; High Cholesterol; Hypertension; WA; kl - PSHx: 00:12 Cardiac stent; kl - Immunization history:: Adult Immunizations up to date. - Social history:: Smoking status: Patient reports the use of cigarette tobacco products, smokes one pack cigarettes per day. ROS: 00:39 Constitutional: Negative for fever, chills, and weight loss, Eyes: Negative for injury, sp3 pain, redness, and discharge, Neck: Negative for injury, pain, and swelling, Abdomen/GI: Negative for abdominal pain, nausea, vomiting, diarrhea, and constipation, Back: Negative for injury and pain, MS/Extremity: Negative for injury and deformity, Skin: Negative for injury, rash, and discoloration, Neuro: Negative for headache, weakness, numbness, tingling, and seizure, Allergy/Immunology: Negative for hives, rash, and allergies, Endocrine: Negative for neck swelling, polydipsia, polyuria, polyphagia, and marked weight changes, Hematologic/Lymphatic: Negative for swollen nodes, abnormal bleeding, and unusual bruising. 00:39 All other systems are negative. Exam: 00:40 Constitutional: This is a well developed, well nourished patient who is awake, alert, sp3 and in no acute distress. Head/Face: Normocephalic, atraumatic. Eyes: Pupils equal round and reactive to light, extra-ocular motions intact. Lids and lashes normal. Conjunctiva and sclera are non-icteric and not injected. Cornea within normal limits. Periorbital areas with no swelling, redness, or edema. ENT: Nares patent. No nasal discharge, no septal abnormalities noted. External auditory canals are clear. Oropharynx with no redness, swelling, or masses, exudates, or evidence of obstruction, uvula midline. Mucous membranes moist. Neck: Trachea midline, no thyromegaly or masses palpated, and no cervical lymphadenopathy. Supple, full range of motion without nuchal rigidity, or vertebral point tenderness. No Meningismus. Chest/axilla: Normal chest wall appearance and motion. Nontender with no deformity. No lesions are appreciated. Cardiovascular: Regular rate and rhythm with a normal S1 and S2. No gallops, murmurs, or rubs. Normal PMI, no JVD. No pulse deficits. Respiratory: Lungs have equal breath sounds bilaterally, clear to auscultation and percussion. No rales, rhonchi or wheezes noted. No increased work of breathing, no retractions or nasal flaring. Abdomen/GI: Soft, non-tender, with normal bowel sounds. No distension or tympany. No guarding or rebound. No evidence of tenderness throughout. Back: No spinal tenderness. No costovertebral tenderness. Full range of motion. Skin: Warm, dry with normal turgor. Normal color with no rashes, no lesions, and no evidence of cellulitis. MS/ Extremity: Pulses equal, no cyanosis. Neurovascular intact. Full, normal range of motion. Neuro: Awake and alert, GCS 15, oriented to person, place, time, and situation. Cranial nerves II-XII grossly intact. Motor strength 5/5 in all extremities. Sensory grossly intact. Cerebellar exam normal. Normal gait. Psych: Awake, alert, with orientation to person, place and time. Behavior, mood, and affect are within normal limits. 00:40 ECG was reviewed by the Attending Physician. EKG demonstrates normal sinus rhythm at 86 bpm with normal intervals, normal QRS, normal axis, nonspecific diffuse ST/T changes without evidence of acute ischemia. Vital Signs: 00:00 BP 143 / 69; Pulse 89; Resp 20; Pulse Ox 97% on R/A; Weight 49.44 kg (M); Height 4 ft. kl 11 in. ; 01:05 BP 113 / 64; Pulse 76; Resp 16; Pulse Ox 96% on R/A; kd3 01:42 BP 129 / 68; Pulse 94; Resp 18; Pulse Ox 97% on R/A; kd3 00:00 Body Mass Index 22.02 (49.44 kg, 149.86 cm) kl MDM: 00:18 Patient medically screened. sp3 00:40 Data reviewed: vital signs, nurses notes, lab test result(s), EKG, radiologic studies. sp3 ED course: 72-year-old female with mainly anxiety symptoms which have now fully resolved. I do not believe she is having acute WA or coronary syndrome. Clinically I also do not believe she is having a CVA, PE, dissection, sepsis, CHF exacerbation, or any other critical findings at this time. If work-up is negative, I believe patient can be safely discharged. Her symptoms started greater than 6 hours prior to arrival and single troponin should rule out any significant cardiac process.. 01:32 ED course: Laboratory values reviewed. Magnesium mildly low and BNP mildly elevated at sp3 1000. Her past BNPs have been significantly higher. We will give 20 mg of Lasix IV and p.o. magnesium and safely discharge patient home to PCP follow-up.. 10/19 23:54 Order name: Basic Metabolic Panel; Complete Time: sp3 10/19 23:54 Order name: CBC with Diff sp3 10/19 23:54 Order name: LFT's; Complete Time: : sp3 10/19 23:54 Order name: Magnesium; Complete Time: sp3 10/19 23:54 Order name: NT PRO-BNP; Complete Time: sp3 10/19 23:54 Order name: PT-INR; Complete Time: 01:12 sp3 10/19 23:54 Order name: Troponin HS; Complete Time: sp3 10/20 01:06 Order name: CBC Smear Scan EDMS 10/19 23:54 Order name: XRAY Chest (1 view) sp3 10/19 23:54 Order name: EKG; Complete Time: 00:28 sp3 10/19 23:54 Order name: Cardiac monitoring; Complete Time: 00:10 sp3 10/19 23:54 Order name: EKG - Nurse/Tech; Complete Time: 00:10 sp3 10/19 23:54 Order name: IV Saline Lock; Complete Time: 00:10 sp3 10/19 23:54 Order name: Labs collected and sent; Complete Time: 00: sp3 10/19 23:54 Order name: O2 Per Protocol; Complete Time: 00: sp3 10/19 23:54 Order name: O2 Sat Monitoring; Complete Time: 00:10 sp3 Administered Medications: 01:42 Drug: Magnesium Oxide PO 400 mg Route: PO; kd3 01:48 Follow up: Response: No adverse reaction kd3 01:42 Drug: Furosemide IVP 20 mg Route: IVP; Site: left forearm; kd3 01:48 Follow up: Response: No adverse reaction kd3 Disposition Summary: 10/20/22 01:33 Discharge Ordered Location: Home sp3 Condition: Stable sp3 Diagnosis - Anxiety, CHF sp3 Followup: sp3 - With: Private Physician - When: Upon discharge from the Emergency Department - Reason: Continuance of care Discharge Instructions: - Discharge Summary Sheet sp3 - Heart Failure Action Plan sp3 Forms: - Medication Reconciliation Form sp3 - Thank You Letter sp3 - Antibiotic Education sp3 - Prescription Opioid Use sp3 Signatures: Dispatcher [employer] Gillian Cutler, Amna Lmoeli RN, MD MD sp3 Monserrat Butterfield RN RN kd3
[2022-10-20] MEDS ORDERED: FUROSEMIDE 20 MG/ 2ML VIAL ONE (01:40)
[2022-10-20] MEDS ORDERED: MAGNESIUM OXIDE 400 MG TAB ONE (01:40)
[2022-10-20] MEDS ORDERED: LIDOCAINE VISCOUS 2% SOLN 15 ML UDC ONE (01:50)
[2022-10-20 02:09] LABS: Anisocytosis 1+; Blood Morphology Comment NOTED (NOT SEEN); Platelet Estimate ADEQ; White Blood Cell Scan OK (OK)
[2022-10-20 02:12] VITALS: BP 129/68; O2SAT 97
--- NOTE | 2022-10-20 15:04 | RAD REPORT ---
EXAM DESCRIPTION: RAD - Chest Single View - 10/20/2022 12:55 am CLINICAL HISTORY: The patient is 72 years old and is Female; CHEST PAIN TECHNIQUE: Frontal view of the chest. COMPARISON: No relevant prior studies available. FINDINGS: Lungs: Prominent interstitial markings which may indicate interstitial edema. No consoli dation. Pleural space: Unremarkable. No pneumothorax. Heart: Unremarkable. Mediastinum: Unremarkable. Bones/joints: Disc space narrowing with degenerative endplate changes in the spine. IMPRESSION: Prominent interstitial markings which may indicate interstitial edema. No consolidation. Electronically signed by: Mohsen Hansen MD 10/20/2022 1:05 AM CDT Due to temporary technical issues with the PACS/Fluency reporting system, reports are being signed by the in house radiologists without review as a courtesy to insure prompt reporting. The interpreting radiologist is fully responsible for the content of the report.
--- NOTE | 2022-10-22 17:36 | EKG ---
Test Date: 2022-10-20 Test Time: 00:01:50 Product Analyst: RONALD MEASUREMENT RESULTS: Intervals: Rate: 86 WI: 114 QRSD: 76 QT: 360 QTc: 430 Enloe: P: -3 WI: 114 QRS: 65 T: 69 INTERPRETIVE STATEMENTS: Sinus rhythm with premature supraventricular complexes Nonspecific ST and T wave abnormality Abnormal ECG Compared to ECG 07/08/2022 00:05:12 Atrial premature complex(es) now present Right-axis deviation no longer present Possible ischemia no longer present ST (T wave) deviation still present Electronically Signed On 10-22-22 17:34:33 CDT by Manny Grey
== END 2022-10-20 01:49 | disposition home or self-care (01) ==
LOC: ER 23:47
DX: F41.9 Anxiety disorder, unspecified (principal); I50.9 Heart failure, unspecified; I10 Essential (primary) hypertension; F17.210 Nicotine dependence, cigarettes, uncomplicated; Z95.818 Presence of other cardiac implants and grafts; Z88.0 Allergy status to penicillin
CPT/HCPCS: 93005; 85025; 80048; 36415; 83735; 85610; 80076; 84484; 83880; 71045; 96374; 99284; J1940

== ENCOUNTER 2022-11-11 04:18 | Emergency (ER) | payer OTHER ==
--- OUTSIDE RECORDS SUMMARY | 2022-11-11 04:25 | XMS REPORT | Continuity of Care Document ---
:1950 Author Organization [facility] t Address [address] [place] [address] Care Team Providers Name Role Phone ARIADNE BASILIO Primary Care Physician Unavailable Ariadne Basilio Attending Clinician Unavailable Manny Grey Attending Clinician Unavailable SADIQ HICKMAN Attending Clinician Unavailable JOSE PAIGE Attending Clinician Unavailable SIENNA WILSON Attending Clinician Unavailable Jonathon Valenzuela Attending Clinician Unavailable Rayne Ghosh Attending Clinician Unavailable UNKNOWN, ATTENDING Attending Clinician Unavailable Doctor Unassigned, [place] Attending Clinician Unavailable Vonda Bell Attending Clinician [...] Number Effective Date Expiration Date Adriana melendez [facility] WELLMED [id number] 2021 00:00:00 WELLMED/C DUAL [id number] 2021 COMP HMO D SNP 00:00:00 [employer] OF [id number] 2014 [place] 00:[place]:00 [facility] MEDICARE C1 [id number] Common ADVANTAGE WELLMED [facility] MEDICARE C1 [id number] Common ADVANTAGE WELLMED Spirit [facility] AARP MEDICARE C1 [id number] Common ADVANTAGE WELLMED [facility] AMERIVANTAGE [id number] 2016 2020 00:00:00 00:00:00 Problems Condition Condition Condition Status Onset Resolution Last Treating Co mments Source Name Details Category Date Date Treatment Clinician Date Spinal Spinal Disease Active Univers stenosis, stenosis, 5-10 ity of lumbar lumbar 00:00: [place] region, region, 00 Medical without without Branch neurogenic neurogenic claudicati claudicati on on Peripheral Peripheral Problem [facility] vascular vascular Spirit disease disease - [facility] Hyperlipid Hyperlipid Problem [facility] [place] Spirit - [facility] 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 with with St congestive congestive [facility] heart heart Medical failure failure Center Chronic Chronic Problem Common obstructiv obstructiv Sp lex e e - CHI pulmonary pulmonary St disease disease [facility] Restless Restless Problem Commo n legs leg Spirit syndrome syndrome - [facility] [id number] 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 - [facility] with other skin 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 - [facility] Allergies, Adverse Reactions, Alerts Allergy Allergy Status Severity Reaction(s) Onset Inactive Treating Comm ents Source Name Type Date Date Clinician Penicill DA Active U HIVES 2021-06 [facility] ins 1-10 Clear 00:00: [place] 00 [facility] bee DA Active SV HIVES 2021-06 [facility] venom 1-10 Clear protein 00:00: [place] [facility] Penicill DA Active U HIVES 2021-06 [facility] ins 1-08 Clear 00:00: [place] 00 [facility] PENICILL Drug Active ITCHING Univers INS Class 7-16 ity of 00:00: [place] 00 [facility] Penicill Propensi Active Itching Unive rs ins ty to 7-16 ity of adverse 00:00: [place] reaction 00 [facility] Penicill Propensi Active Itching Unive rs ins ty to 7-16 ity of adverse 00:00: [place] reaction 00 [facility] bee DA Active SV HIVES [facility] venom 6-27 Clear protein 00:00: [place] (honey 00 [facility] No Known DA Active U 2020-06 [facility] Allergie 1-22 Clear s 00:00: [place] 00 [facility] NO KNOWN Drug Active Univers ALLERGIE Class ity of S [facility] Social History Social Habit Start Date Stop Date Quantity Comments Source History of Current Smoker Common Spi rit - Tobacco Use [facility] Sex Assigned At Common Sp lex - [facility] Exposure to 2021-12-08 2021-12-18 Not sure [facility] SARS-CoV-2 00:00:00 03:38:00 [facility] (event) Branch Alcohol intake 2021-12-18 2021-12-18 0 /d University of 00:00:00 00:00:00 [facility] Smoking Status Start Date Stop Date Source Current Smoker 2022-04-13 00:00:00 Common Spiri t - [facility] Occasional tobacco smoker 2016-08-15 00:00:00 Un iversity [facility] Medications Ordered Filled Start Stop Current Ordering [...] by mouth ity of tablet 04:10: at [place] [address] bedtime. Medical Branch simvastatin Yes 40mg Take 40 mg Univers 40 mg 12-18 by mouth ity of tablet 04:10: at [place] 53 bedtime. Medical Branch FENTanyl PF 2021- [...] 4-6). Indication s: acute pain traMADOL 50 2017-0 Yes 50mg Take 1 Univ ers mg tablet 4-13 tablet by ity o f 00:00: mouth [place] 00 every 4 Medical (four) Branch hours as needed for Pain (scale 1-3). traMADOL 50 No 50mg Take 1 Uni vers mg tablet 4-13 07-17 tablet by ity of 00:00: 00:00 mouth [...] ity of tablet 00:00: MOUTH [place] 00 [id number] Medical YS,1 TAB Branch [id number] ,1/2 TAB [id number] ALPRAZolam Yes TAKE 1 Unive rs 0.5 [...] ity of tablet 00:00: MOUTH [place] 00 [id number] Medical YS,1 TAB Branch [id number] ,1/2 TAB [id number] simvastatin Yes TAKE 1 Univ ers 40 mg 2-22 TABLET BY ity of tablet 00:00: MOUTH AT [place] 00 BEDTIME Medical Branch rOPINIRole Yes TAKE 1 Unive rs 4 mg tablet 2-22 TABLET BY ity of 00:00: MOUTH AT [place] 00 BEDTIME Medical Branch traMADOL 50 Yes TAKE 1 Univ ers mg tablet 2-22 TABLET BY ity o f 00:00: MOUTH [place] 00 TWICE A Medical DAY Branch NEEDED FOR PAIN ALPRAZolam Yes TAKE 1 Unive rs 0.5 mg 2-22 TABLET BY ity of tablet 00:00: MOUTH [place] 00 TWICE A Medical DAY Branch NEEDED FOR ANXIETY hydroCHLORO Yes TAKE ONE Un william thiazide 2-22 CAPSULE BY ity o f 12.5 mg 00:00: MOUTH [place] capsule 00 EVERY Medical MORNING Branch lisinopril Yes 10mg Take 10 mg U nivers 10 mg 2-22 by mouth ity of tablet 00:00: daily. [place] 00 Medical Branch metoprolol Yes TAKE 1 Unive rs tartrate 2-22 TABLET BY ity of 100 mg 00:00: MOUTH [place] tablet 00 TWICE A Medical DAY Branch predniSONE Yes TAKE 1 Unive rs 20 mg 2-22 TABLET BY ity of tablet 00:00: MOUTH [place] 00 [id number] Medical YS,1 TAB Branch [id number] ,1/2 TAB [id number] cilostazol 2021- No TAKE 1 Univ ers 100 mg 2-22 -17 TABLET BY ity of tablet 00:00: 00:00 MOUTH [place] 00 :00 TWICE A Medical DAY Branch simvastatin 2021- No TAKE 1 Uni vers 40 mg 2-22 -17 TABLET BY ity of tablet 00:00: 00:00 MOUTH AT [place] 00 :00 BEDTIME Medical Branch rOPINIRole 2021- No TAKE 1 Univ ers 4 mg tablet 2-22 -17 TABLET BY it y of 00:00: 00:00 MOUTH AT [place] 00 :00 BEDTIME Medical Branch traMADOL 50 2021- No TAKE 1 Uni vers mg tablet 07-26 TABLET BY ity of 00:00: 00:00 MOUTH [place] 00 :00 TWICE A Medical DAY Branch NEEDED FOR PAIN clopidogrel Yes 75mg Take 75 mg Univers 75 mg 2-21 by mouth ity of tablet 00:00: daily. [place] Medical Branch metFORMIN Yes TAKE 1 Univer s 1,000 mg 2-21 TABLET BY ity of tablet 00:00: MOUTH [place] TWICE A Medical DAY Branch clopidogrel Yes 75mg Take 75 mg Univers 75 mg 2-21 by mouth ity of tablet 00:00: daily. [place] Medical Branch metFORMIN Yes TAKE 1 Univer s 1,000 mg 2-21 TABLET BY ity of tablet 00:00: MOUTH [place] [address] TWICE A Medical DAY Branch clopidogrel Yes 75mg Take 75 mg Univers 75 mg 2-21 by mouth ity of tablet 00:00: daily. [place] Medical Branch metFORMIN Yes TAKE 1 Univer s 1,000 mg 2-21 TABLET BY ity of tablet 00:00: MOUTH [place] [address] TWICE A Medical DAY Branch Atorvastati Atorvastati No Atorvastat n Calcium n [...] HCl 1000 MG Flovent HFA Flovent HFA Flovent 44 MCG/ACT [...] Comments Source height 2022-01-12 08:20:00 56 [in_i] [facility] weight 2022-01-12 08:20:00 107.2 [lb_av] [facility] [place] [facility] temperature 2022-01-12 08:20:00 97.2 [degF] [facility] bmi 2022-01-12 08:20:00 24.03 kg/m2 [facility] oximetry 2022-01-12 08:20:00 97 % [facility] respiratory rate 2022-01-12 08:20:00 18 /min Comm on [facility] blood pressure 2022-01-12 08:20:00 146 mm[Hg] Common [facility] blood pressure 2022-01-12 08:20:00 62 mm[Hg] Common Spirit - diastolic [facility] Body temperature 2021-12-18 08:45:42 37.44 Giovanna Univ ersity of [facility] Branch Systolic blood 2021-12-18 08:39:00 143 mm[Hg] Univer sity of pressure [facility] Branch Diastolic blood 2021-12-18 08:39:00 90 mm[Hg] Unive rsity of pressure [facility] Heart rate 2021-12-18 08:39:00 114 /min Universi ty of [place] [facility] Respiratory rate 2021-12-18 08:39:00 20 /min Univ ersity of [facility] Body height 2021-12-18 08:39:00 149.9 cm Universi ty of [facility] Body weight 2021-12-18 08:39:00 48.988 kg Universi ty of [place] [facility] [place] BMI 2021-12-18 08:39:00 21.81 kg/m2 Universi ty of [facility] Oxygen saturation in 2021-12-18 08:39:00 93 /min University of Arterial blood by [facility] Pulse oximetry Branch Systolic blood 2021-12-18 03:00:00 140 mm[Hg] Univer sity of pressure [facility] Diastolic blood 2021-12-18 03:00:00 90 mm[Hg] Unive rsity of pressure [facility] Heart rate 2021-12-18 03:00:00 99 /min Universi ty of [facility] Respiratory rate 2021-12-18 03:00:00 26 /min Univ ersity of [facility] Oxygen saturation in 2021-12-18 03:00:00 98 /min University of Arterial blood by [facility] Pulse oximetry Branch Body temperature 2021-12-18 02:23:00 37.5 Giovanna Univ ersity of [facility] Branch Body height 2021-12-18 02:23:00 149.9 cm Universi ty of [place] [facility] [place] Body weight 2021-12-18 02:23:00 48.988 kg Universi ty of [place] [facility] BMI 2021-12-18 02:23:00 21.81 kg/m2 Universi ty of [place] [facility] height 2021-10-06 09:40:00 56 [in_i] Common S pirit - [facility] weight 2021-10-06 09:40:00 108.4 [lb_av] Common [facility] temperature 2021-10-06 09:40:00 97.9 [degF] [facility] bmi 2021-10-06 09:40:00 24.3 kg/m2 Common S pirit [facility] oximetry 2021-10-06 09:40:00 94 % [facility] respiratory rate 2021-10-06 09:40:00 16 /min Comm on [facility] blood pressure 2021-10-06 09:40:00 139 mm[Hg] Common Spirit - systolic [facility] blood pressure 2021-10-06 09:40:00 70 mm[Hg] Common Spirit - diastolic [facility] height 2021-04-19 09:00:00 56 [in_i] Common [facility] weight 2021-04-19 09:00:00 113.5 [lb_av] [facility] temperature 2021-04-19 09:00:00 97.5 [degF] Common [facility] bmi 2021-04-19 09:00:00 25.44 kg/m2 [facility] oximetry 2021-04-19 09:00:00 92 % Common [facility] blood pressure 2021-04-19 09:00:00 128 mm[Hg] Common Spirit - systolic [facility] blood pressure 2021-04-19 09:00:00 86 mm[Hg] Common Spirit - diastolic [facility] height 2021-01-27 13:20:00 56 [in_i] Common S pirit [facility] weight 2021-01-27 13:20:00 117 [lb_av] Common S [facility] temperature 2021-01-27 13:20:00 97.4 [degF] Common S pirit [facility] bmi 2021-01-27 13:20:00 26.23 kg/m2 Common S [facility] oximetry 2021-01-27 13:20:00 93 % Common S [facility] respiratory rate 2021-01-27 13:20:00 18 /min Comm on [facility] blood pressure 2021-01-27 13:20:00 117 mm[Hg] [facility] - systolic [facility] blood pressure 2021-01-27 13:20:00 52 mm[Hg] [facility] - diastolic [facility] Procedures Procedure Date / Time Performing Clinician Source Performed [id number] 2022-06-12 00:00:00 KARZE [facility] [id number] 2022-06-12 00:00:00 KARZE [facility] [id number] 2022-06-12 00:00:00 KARZE [facility] NON-UTMB ORDERS 2022-05-30 06:01:00 Doctor Unassigned, No Univer sity of [facility] Branch [id number] 2022-04-14 00:00:00 CHEZU [facility] [id number] 2022-04-14 00:00:00 CHEZU [facility] [id number] 2022-04-14 00:00:00 CHEZU [facility] [id number] 2022-04-14 00:00:00 CHEZU [facility] [id number] 2022-04-14 00:00:00 CHEZU [facility] [id number] 2022-04-14 00:00:00 CHEZU [facility] [id number] 2022-04-14 00:00:00 CHEZU [facility] [id number] 2022-04-14 00:00:00 CHEZU [facility] [id number] 2022-04-12 00:00:00 RASSA [facility] CONSENT/REFUSAL FOR 2021-12-18 08:36:35 Doctor Unassigned, No [facility] [place] [facility] Medical Branch COMP. METABOLIC PANEL 2021-12-18 03:08:00 Umair Bailey [facility] ([id number]) Medical Branch CBC WITH DIFF 2021-12-18 03:08:00 Umair Bailey [facility] COVID-19 (ID NOW RAPID 2021-12-18 03:08:00 Umair Bailey [facility] TESTING) Medical [place] URINE DRUG (IMMUNOASSAY) 2021-12-18 02:39:00 [facility] Medical Bra nc SCREEN URINALYSIS 2021-12-18 02:39:00 Umair Bailey [facility] NOTICE OF PRIVACY 2021-12-18 02:08:20 Doctor Unassigned, No [facility] PRACTICES Name Medical Branch CONSENT/REFUSAL FOR 2021-12-18 02:07:28 Doctor Unassigned, No [facility] Name [facility] Encounters Start End Encounter Admission Attending Care Care Encounter Source Date/Time Date/Time Type Type Clinicians Facility Department ID 2022-07-11 Outpatient [facility] [id number] [place] 13:29:[id number] [facility] 2022-04-12 Outpatient [place], STLMLC STLMLC [id number] Common 10:10:01 Ariadne [id number] [facility] 2022-01-04 Outpatient [place], STLMLC STLMLC [id number] Common 07:52:00 Ariadne [facility] 2021-11-30 Inpatient EL Raslan, HCACL HCACL [id number] [facility] 13:00:00 Manny [id number] [facility] 2021-10-04 Outpatient [place], STLMLC STLMLC [id number] Common 09:48:03 Ariadne [facility] 2021-07-15 Outpatient [place], STLMLC STLMLC [id number] Common 08:00:02 Ariadne [facility] 2021-06-29 Outpatient [place], STLMLC STLMLC [id number] Common 13:43:19 Ariadne [facility] 2022-06-27 2022-07-02 Inpatient Jorje HICKMAN, [facility] MED [id number] [facility] 21:14:00 12:20:00 SADIQ 2022-06-30 2022-06-30 Outpatient ALDA [facility] [id number] [place] 08:30:00 08:30:00 JOSE Espana th 2022-06-27 2022-06-27 Outpatient KATIE, [facility] MARI [id number] [facility] 18:16:00 23:59:00 SIENNA 2022-06-10 2022-06-12 Inpatient EM Nicolas, HCACL INTE.02 [id number] [facility] 18:52:00 17:47:00 Jonathon 95 [facility] 2022-06-06 2022-06-06 Outpatient CORRINE Ghosh, HCACL DAYS [id number] [facility] 08:00:00 08:01:00 Rayne 92 [facility] 2022-05-31 2022-05-31 Outpatient R UNKNOWN, [facility] [id number] Univers 10:20:30 23:59:00 ATTENDING ity of [facility] 2022-05-30 2022-05-30 Orders Doctor NATE [id number] Univers 00:00:00 00:00:00 Only Unassigned, LUPILLO 350.1.13.10 ity of [place] [facility] 4.2.7.2.686 Je as [id number] [address] 2022-05-23 2022-05-23 (TEL) STLC STLC [id number] Co mmon 00:00:00 00:00:00 Spirit - [facility] 2022-04-14 2022-04-15 Inpatient Vonda Salas HCACL INTE.02 [id number] [facility] 08:50:00 14:05:00 05 [facility] 2022-01-12 2022-01-12 OFFICE STLMLC STLMLC [id number] Co mmon 00:00:00 00:00:00 VISIT Spirit ESTAB PT - CHI LEVEL 4 [facility] 2022-01-04 2022-01-04 (TEL) STLC STLC [id number] Co mmon 00:00:00 00:00:00 Spirit - [facility] 2021-12-18 2021-12-18 Emergency X SINGER [facility] ERT [id number] Univers 03:37:00 04:23:00 ANDREA loving [facility] 2021-12-18 2021-12-18 Emergency Singer [facility] [id number] Univers 03:37:00 04:23:00 Andrea SANDHU 350.1.13.10 i ty of [place] 4.2.7.2.686 [facility] [id number] [address] 2021-12-17 2021-12-17 Emergency [facility] [id number] Univers 21:28:00 23:30:00 Umair SANDHU 350.1.13.10 ity [facility] 4.2.7.2.686 [facility] [id number] [address] 2021-12-17 2021-12-17 Emergency X [facility] ERT [id number] Univers 21:28:00 23:30:00 UMAIR loving [facility] 2021-11-30 2021-11-30 Outpatient MELODY Champion OUTD [id number] [facility] 05:11:00 05:11:00 Manny 13 [facility] 2021-11-27 2021-11-27 (TEL) STLMLC STLMLC [id number] Co mmon 00:00:00 00:00:00 Spirit - [facility] 2021-10-06 2021-10-06 OFFICE STLMLC STLMLC [id number] Co mmon 00:00:00 00:00:00 VISIT Spirit ESTAB PT - CHI LEVEL 4 [facility] 2021-04-26 2021-04-26 Inpatient RONALD HouseCL DAYS [id number] [facility] 05:15:00 05:15:00 Rayne 37 [facility] 2021-04-19 2021-04-19 OFFICE STLMLC STLMLC [id number] Co mmon 00:00:00 00:00:00 VISIT Spirit ESTAB PT - CHI LEVEL 4 [facility] 2021-04-11 2021-04-11 (TEL) STLMLC STLMLC [id number] Co mmon 00:00:00 00:00:00 Spirit - [facility] 2021-01-27 2021-01-27 OFFICE STLMLC STLMLC [id number] Co mmon 00:00:00 00:00:00 VISIT NEW Spir it PT LEVEL 4 - [facility] 2020-01-23 2020-01-23 Outpatient GRECIA FOWLER [facility] [id number] Univers 13:00:00 13:00:00 ity [facility] 2019-12-04 2019-12-04 Orders Doctor NATE [id number] 00:00:00 00:00:00 Only Unassigned, [place] 350.1.13.10 [place] [facility] 4.2.7.2.686 [id number] Results Test Description Test Time Test Comments Results Result Comments Source GLUCOSE BEDSIDE 2022-06-12 16:47:00 Test Item Value Reference Range Interpretation Comme nts GLUCOSE BEDSIDE (test code = 100 MG/DL 70-110 N Performed by certified chamfering 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 at [facility]) [facility] GLUCOSE [id number] 13:58:00 Test Item Value Reference Range Interpretation Comments GLUCOSE BEDSIDE (test 86 MG/DL 70-110 N Perfor med by certified code = GLUBED) chamfering 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 at [facility] GLUCOSE [id number] 11:50:00 Test Item Value Reference Range Interpretation Comments GLUCOSE BEDSIDE (test 81 MG/DL 70-110 N Perfor med by certified code = GLUBED) chamfering 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 at [facility] GLUCOSE [id number] 08:16:00 Test Item Value Reference Range Interpretation Comments GLUCOSE BEDSIDE (test 86 MG/DL 70-110 N Perfor med by certified code = GLUBED) chamfering 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 at [facility] CBC W/O [id number] 05:37:00 Test Item Value Reference Range Interpretation [...] fL 7.0-9.0 H = MPV) BASIC METABOLIC [id number] 05:21:00 Test Item Value Reference Range Interpretation [...] = 8.4 mg/dL 8.0-10.5 N CA) GLUCOSE [id number] 23:44:00 Test Item Value Reference Range Interpretation Comments GLUCOSE BEDSIDE (test 142 MG/DL 70-110 H Perfor med by certified code = GLUBED) chamfering 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 at [facility] GLUCOSE [id number] 22:14:00 Test Item Value Reference Range Interpretation Comments GLUCOSE BEDSIDE (test 45 MG/DL 70-110 L Perfor med by certified code = GLUBED) chamfering 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 at [facility] GLUCOSE [id number] 17:05:00 Test Item Value Reference Range Interpretation Comments GLUCOSE BEDSIDE (test 95 MG/DL 70-110 N Perfor med by certified code = GLUBED) chamfering 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 at [facility] GLUCOSE [id number] 09:26:00 Test Item Value Reference Range Interpretation Comments GLUCOSE BEDSIDE (test 108 MG/DL 70-110 N Perfor med by certified code = GLUBED) chamfering 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 at [facility] TROP-I HIGH [id number] 03:07:00 Test Item Value Reference Range Interpretation Comments TROP-I HIGH 593 ng/L 0-34 HH CAUTION: Units of the SENSITIVITY (test current te st methodology code = TROPIHS) (ng/L) diffe rfrom the prior test meth odology (ng/mL) by a fa ctor of 1000. 99t h Percentile Uppe r Reference Limit (URL): Fe males: 34 ng/LMales: 54 n g/L In order to distin ish acute elevations of h igh sensitivitytrop onin [...] URLs mayvar y by method. TROP-I HIGH [id number] 23:53:00 Test Item Value Reference Range Interpretation [...] URL. These resu lts were obtained using [employer] IM TnI Hreagent. Results from di fferent methodologies s hould not becompared to o ne another as quantitative results and URLs mayvar y by method. GLUCOSE [id number] 23:32:00 Test Item Value Reference Range Interpretation Comments GLUCOSE BEDSIDE (test 158 MG/DL 70-110 H Perfor med by certified code = GLUBED) chamfering 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 at [facility] LIPOPROTEIN [id number] 18:26:00 Test Item Value Reference Range Interpretation Comments LIPOPROTEIN LDL 50.8 mg/dL 0-100 N <100 OPTIMAL 100-129 NEAR (test code = LDL) OPTIMAL/AB OVE [id number] HIGH>IO=971 RONDA Y HIGH*Guidelines provided by the National Cholesterol EducationProgra m Adult Treatment Panel III PROTHROMBIN [id number] 18:14:00 Test Item Value Reference Range Interpretation [...] (to prevent recurrent infar ct). THROMBOPLASTIN TIME [id number] 18:14:00 Test Item Value Reference Range Interpretation Comments THROMBOPLASTIN TIME 29.0 Seconds 25.0-39.5 N Therape utic Range: PARTIAL (test code = 50.4 - 88.3 Seconds PTT) Effective 09/17/2018 BASIC METABOLIC [id number] 18:11:00 Test Item Value Reference Range Interpretation [...] 8.2 mg/dL 8.0-10.5 N CA) TROP-I HIGH [id number] 18:11:00 Test Item Value Reference Range Interpretation Comments TROP-I HIGH 607 ng/L 0-34 HH Critical result called to SENSITIVITY (test DEE RIVERA TNAM, RNby code = TROPIHS) G.LAB.ATD at 1810 [...] URLs mayvar y by method. CBC W/AUTO [id number] 17:43:00 Test Item Value Reference Range Interpretation [...] NO = MDIFF) - XR CHEST 1 [id number] 00:00:00 [facility] : 1950 Sex: F FAX: Ariadne Basilio Sarah [phone] [place]: St: [facility] FAX: John Saavedra MD FAX: Elena Trent APR [phone] Name: MILLERMANJIT [facility] : 1950 Age/S: 72/F [address] [place] [address] Unit #: [id number] Loc: [place] [address] Phys: Elena Trent APRNNP Acct: [id number] Dis Date: Status: REG ERPHONE #: [phone] Exam Date: 06/10/20220 FAX #: [phone] Reason: anemia? EXAMS: CPT CODE: [id number] XR CHEST 1 V 24517 PROCEDURE INFORMATION: Exam: XR Chest Exam date and time: 06/10/2022 5:14 PM Age: 72 years old Clinical indication: Pain; Other: Anemia TECHNIQUE: Imaging protocol: Radiologic exam of the chest. Views: 1 view. COMPARISON: CR XR CHEST 1V 06/06/2022 10:50 AM FINDINGS: Lungs: See "Pleural spaces" finding. Pleural spaces: Blunting of the right costophrenic angle, likely secondary to trace effusion/atelectasis. Heart/Mediastinum: Mild cardiomegaly. Vasculature: Atheroscleroticcalcification of the thoracic aorta. Bones/joints: Unremarkable. IMPRESSION: Trace right pleural effu nikos/atelectasis. Mild cardiomegaly. at 1824 Reported and signed by: Janice Hanson M.D. CC: Ariadne Basilio ENTRY LEVEL ACCOUNT EXECUTIVE; John Cordero; Elena Trent Technologist: Gia Priest, RT(R); Nida Henriquez RT(R) Trnscrd Date/Time/By: 06/10/2022 (1823) : By: [email or web address] Orig Print D/T: S: 06/10/2022 (1823) PAGE 1 Signed Report- DOP ART ARCHITECTURAL DRAFTING INSTRUCTOR LEVEL [id number] 00:00:00 [facility] : 1950 Sex: F Name: MANJIT BHATT [facility] : 1950 Age/S: 72 / F [address] [place] [address] Blvd Unit #: [id number] Loc: [place] [address] Phys: Elena Trent Acct: [id number] Dis Date: Status: ADM INPHONE #: [phone] Exam Date: 06/10/20221826 FAX #: [phone] Reason: recent lle angiocath, decreased pulses EXAMS: CPT CODE: [id number] DOP ART ARCHITECTURAL DRAFTING INSTRUCTOR LEVEL LENA 22013 PROCEDURE INFORMATION: Exam: US Duplex Lower Extremity [...] Right lower extremity: Right Common femoral artery: Stron g monophasic flow. The peak systolic velocity is [...] Common femoral artery: A stent is noted inthe region of the left common femoral artery. There is strong monophasic flow. The peak systolic velocity is 94 cm/sec. Left Superficial femoral artery, proximal: Strong monophasic flow. The peak systolic velocity is 92 cm/sec. Left Superficial femoral artery, midportion: Strong monophasic flow. The peak systolic velocity is 89 cm/sec. Left Superficial femoral artery, distal: Strong monophasic flow.The peak systolic velocity is 122 cm/sec. Left Popliteal artery: A popliteal artery stent is noted. There is strong monophasic flow.. The peak systolic velocity is 140 cm/sec. Left Posterior tibial artery at the ankle: Strong monophasic flow. PAGE 1 Signed Report (CONTINUED) Name: MANJIT BHATT [facility] : 1950 Age/S: 72 / F [address] [place] [address] Unit #: [id number] Loc: Anjel BC22978 Phys: Elena Trent Acct: [id number] Dis Date: Status: ADM IN PHONE #: [phone] Date: 06/10/20221826 FAX #: [phone] Reason: recent lle angiocath, decreased pulses EXAMS:CPT CODE: [id number] DOP ART ARCHITECTURAL DRAFTING INSTRUCTOR LEVEL LENA 22126 (Continued) The peak systolic velocity is 118 [...] flow in the mid right superficial femoral arteryprobably related to collaterals. 3. Overall, there is probable moderate vascular disease on the right including inflow impairment and proximal superficial femoral artery disease. There is also probablemild runoff disease. 4. Stent is noted in [...] involving the left lower extremity Please correlate thesefindings with clinical information, clinical examination, and ankle -- brachial ratios. at 1919 Reported and signed by: Armando Light M.D. CC: Ariadne Basilio NP; John Saavedra MD; Elena Trent Technologist: Camelia Bustillo RDMS() Trnscb Date/Time: 06/10/2022 (1918) [email or web address] Orig Print D/T: S: 06/10/2022 (1919) Probe: PAGE 2 Signed ReportGLUCOSE [id number] 17:49:00 Test Item Value Reference Range Interpretation Comments GLUCOSE BEDSIDE (test 148 MG/DL 70-110 H Perfor med by certified code = GLUBED) chamfering 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 at [facility] BASIC METABOLIC [id number] 12:21:00 Test Item Value Reference Range Interpretation [...] the recommended for lucila for GFRby the [facility] on for Adults.The GFR will not calculate if th e sex is unknown or if thepatient's ag e is <18 years. CREATININE (test 1.0 mg/dL 0.6-1.3 N code = CREAT) CALCIUM (test code = 8.6 mg/dL 8.0-10.5 N CA) CBC W/AUTO [id number] 12:16:00 Test Item Value Reference Range Interpretation [...] REQUIRED (test code NO = MDIFF) RBC [id number] 12:16:00 Test Item Value Reference Range Interpretation Comments ANISOCYTOSIS (test code = ANISO) 3+ POLYCHROMASIA (test code = POLC) 1+ HYPOCHROMIA (test code = HYPO) 2+ POIKILOCYTOSIS (test code = POIK) 1+ MICROCYTOSIS (test code = MICR) 2+ MACROCYTOSIS (test code = MACR) 2+ SCHISTOCYTES (test code = SERENITY) FEW PROTHROMBIN [id number] 12:05:00 Test Item Value Reference Range Interpretation Comments PROTHROMBIN TIME 19.0 SECONDS 9.3-12.9 H PATIENT (test code = PTP) INTERNATIONAL NORMAL 1.7 0.8-1.2 H TARGE T INR BY RATIO (test code [...] Infarction (to prevent recurrent infar ct). 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 : 1950 Age/S: 72/F [address] [place] [address] Unit #: [id number] Loc: [place] [address] Phys: Rayne Ghosh MD Acct: [id number] Dis Date: Status: PRE SDC PHONE #: [phone] Exam Date: 06/06/2022 1126 FAX #: Reason: PREOP ORDERS EXAMS: CPT CODE: [id number] XR CHEST 1 V 88667 PROCEDURE INFORMATION: Exam: XR Chest Exam date [...] Unremarkable. IMPRESSION: No acute cardiopulmonary findings. at 7556 Reported and signed by: Marty Gonzalez M.D. CC: Rayne Ghosh MD Technologist: Rusty Montilla; RT Chrissy(R) Trnscrd Date/Time/By: 06/06/2022 (1246) : By: Vani Orig Print D/T: S: 06/06/2022 (1747) PAGE 1 Signed ReportGLUCOSE [id number] 12:48:00 Test Item Value Reference Range Interpretation Comments GLUCOSE BEDSIDE (test 100 MG/DL 70-110 N Perfor med by certified code = GLUBED) chamfering 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 at [facility] GLUCOSE [id number] 08:15:00 Test Item Value Reference Range Interpretation Comments GLUCOSE BEDSIDE (test 156 MG/DL 70-110 H Perfor med by certified code = GLUBED) chamfering 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 at [facility] GLUCOSE [id number] 21:25:00 Test Item Value Reference Range Interpretation Comments GLUCOSE BEDSIDE (test 119 MG/DL 70-110 H Perfor med by certified code = GLUBED) chamfering 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 at [facility] GLUCOSE [id number] 18:45:00 Test Item Value Reference Range Interpretation Comments GLUCOSE BEDSIDE (test 103 MG/DL 70-110 N Perfor med by certified code = GLUBED) chamfering 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 at [facility] GLUCOSE [id number] 12:35:00 Test Item Value Reference Range Interpretation Comments GLUCOSE BEDSIDE (test 86 MG/DL 70-110 N Perfor med by certified code = GLUBED) chamfering 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 at [facility] GLUCOSE [id number] 08:10:00 Test Item Value Reference Range Interpretation Comments GLUCOSE BEDSIDE (test 95 MG/DL 70-110 N Perfor med by certified code = GLUBED) chamfering 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 at [facility] BASIC METABOLIC [id number] 04:44:00 Test Item Value Reference Range Interpretation [...] the recommended for lucila for GFRby the [facility] on for Adults.The GFR will not calculate if th e sex is unknown or if thepatient's ag e is <18 years. 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 at [facility] GLUCOSE [id number] 15:55:00 Test Item Value Reference Range Interpretation Comments GLUCOSE BEDSIDE (test 83 MG/DL 70-110 N Perfor med by certified code = GLUBED) chamfering 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 at [facility] GLUCOSE [id number] 11:17:00 Test Item Value Reference Range Interpretation Comments GLUCOSE BEDSIDE (test 85 MG/DL 70-110 N Perfor med by certified code = GLUBED) chamfering 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 at [facility] COAGULATION TIME [id number] 08:28:00 Test Item Value Reference Range Interpretation Comments COAGULATION TIME 224 SECONDS Performed b y ACTIVATED (test code = certi fied chamfering 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 ACT) at [facility] GLUCOSE [id number] 08:19:00 Test Item Value Reference Range Interpretation Comments GLUCOSE BEDSIDE (test 143 MG/DL 70-110 H Perfor med by certified code = GLUBED) chamfering 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 at [facility] GLUCOSE [id number] 07:50:00 Test Item Value Reference Range Interpretation Comments GLUCOSE BEDSIDE (test 90 MG/DL 70-110 N Perfor med by certified code = GLUBED) chamfering 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 at [facility] GLUCOSE [id number] 02:22:00 Test Item Value Reference Range Interpretation Comments GLUCOSE BEDSIDE (test 143 MG/DL 70-110 H Perfor med by certified code = GLUBED) chamfering 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 at [facility] GLUCOSE [id number] 02:19:00 Test Item Value Reference Range Interpretation Comments GLUCOSE BEDSIDE (test 171 MG/DL 70-110 H Perfor med by certified code = GLUBED) chamfering 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 at [facility] GLUCOSE [id number] 02:18:00 Test Item Value Reference Range Interpretation Comments GLUCOSE BEDSIDE (test 161 MG/DL 70-110 H Perfor med by certified code = GLUBED) chamfering 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 at [facility] [id number] 02:17:00 Test Item Value Reference Range Interpretation Comments ACT-ISTAT (test code 225 SEC 74-137 H Perform ed by certified = ACTI) chamfering 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 at [facility] GLUCOSE [id number] 07:28:00 Test Item Value Reference Range Interpretation Comments GLUCOSE BEDSIDE (test 111 MG/DL 70-110 H Perfor med by certified code = GLUBED) chamfering 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 at [facility] CBC W/AUTO [id number] 14:31:00 Test Item Value Reference Range Interpretation [...] REQUIRED (test code NO = MDIFF) RBC [id number] 14:31:00 Test Item Value Reference Range Interpretation Comments ANISOCYTOSIS (test code = ANISO) 2+ MICROCYTOSIS (test code = MICR) 2+ MACROCYTOSIS (test code = MACR) 1+ TARGET CELLS (test code = TGT) 1+ ELLIPTOCYTES (test code = ELL) FEW SCHISTOCYTES (test code = SERENTIY) FEW BASIC METABOLIC [id number] 12:02:00 Test Item Value Reference Range Interpretation [...] = 8.5 mg/dL 8.0-10.5 N CA) PROTHROMBIN [id number] 11:59:00 Test Item Value Reference Range Interpretation [...] recurrent infar ct). - XR CHEST 2 [id number] 00:00:00 [facility] : 1950 Sex: F FAX: Manny Gonzalez MD [phone] [place]: St: PRE Name: MANJIT BHATT [facility] : 1950 Age/S: 72/F [address] [place] [address] Unit #: [id number] Loc: [place] [address] Phys: Manny Grey MD Acct: [id number] Dis Date: Status: PRE [facility] [place]ONE #: [phone] Exam Date: 04/11/2022 1127 FAX #: [phone] Reason: PRE OP EXAMS: CPT CODE: [id number] XR CHEST 2 V 25485 PROCEDURE INFORMATION: Exam: XR Chest Exam date and time: 04/11/2022 11:16 AM Age: [...] 1426 Reported and signed by: Mayo Garcia M.D. CC: Manny Grey MD Technologist: RT Babar(R) Trnscrd Date/Time/By: 04/11/2022 (6076) : By: [email or web address] Orig Print D/T: S: 04/11/2022 (142) PAGE 1 Signed ReportCOMP. METABOLIC PANEL (52645)2021-12-18 03:31:59 Test Item Value Reference Range Interpretation Comments NA (test code = 134 mmol/L 135-145 L 6547965514) K (test code = 4.5 mmol/L 3.5-5 2286413670) CL (test code = 98 mmol/L 98-108 6660526655) CO2 TOTAL (test code = 25 mmol/L 23-31 9978058218) AGAP (test code = 2-16 6928078989) BUN (test code = 20 mg/dL 7-23 7006306525) GLUCOSE (test code = 133 mg/dL 70-110 H 0972875840) CREATININE (test code = 1.04 mg/dL 0.5-1.04 6265097391) TOTAL BILI (test code = 0.4 mg/dL 0.1-1.4 2340646923) CALCIUM (test code = 8.6 mg/dL 8.6-10.6 1428570274) T PROTEIN (test code = 6.7 g/dL 6.3-8.2 4184889429) ALBUMIN (test code = 4.0 g/dL 3.5-5 9147152496) ALK PHOS (test code = 153 U/L 34-122 H 8550177148) ALTv (test code = 78 U/L 5-35 H 1742-6) AST(SGOT) (test code = 27 U/L 13-40 2386787277) eGFR (test code = mL/min/1.73m2 9093151762) KARIS (test code = KARIS) Association of [...] tests). Lab Interpretation Abnormal (test code = 74661-6) [facility] WITH [id number] 03:16:01 Test Item Value Reference Range Interpretation Comments WBC (test code = See_Comment [Automated 3190-2) message] The sy stem which generated this result transmitted reference range : 4.30 - 11.10 10*3/?L. The reference range was not used to interpret this result as normal/abnormal . RBC (test code = See_Comment L [Automated 9-8) message] The sy stem which generated this [...] RDW-SD (test code = 46.9 fL 39-49.9 76906-4) RDW-CV (test code = 18.9 % 12-15.5 H 788-0) PLT (test code = See_Comment H [Automated 777-3) message] The sy stem which generated this result transmitted reference range : 166 - 358 10*3/ ?L. The reference r claudy was not used to interpret this result as normal/abnormal . MPV (test code = 9.2 fL 9.5-12.9 L 56770-1) NRBC/100 WBC (test See_Comment [Automat ed code = 4256807864) message] The system which generated this result transmitted reference range : 0.0 - 10.0 /100 WBCs. The refer ence range was not u sed to interpret th is result as normal/abnormal . NRBC x10^3 (test code See_Comment [Auto mated = 0675736799) message] The s ystem which generated this result transmitted reference range : 10*3/?L. The reference range was not used to interpret this result as normal/abnormal . GRAN MAT (NEUT) % 67.5 % (test code = 770-8) IMM GRAN % (test code 0.40 % = 0590217077) LYMPH % (test code = 19.1 % 736-9) MONO % (test code = 11.0 % 5905-5) EOS % (test code = 1.3 % 713-8) BASO % (test code = 0.7 % 706-2) GRAN MAT x10^3(ANC) 6.97 10*3/uL 1.88-7.09 (test code = 3314601564) IMM GRAN x10^3 (test 0.04 10*3/uL 0-0.06 code = 1882756549) LYMPH x10^3 (test code 1.97 10*3/uL 1.32-3.29 = 731-0) MONO x10^3 (test code 1.13 10*3/uL 0.33-0.92 H = 742-7) EOS x10^3 (test code = 0.13 10*3/uL 0.03-0.39 711-2) BASO x10^3 (test code 0.07 10*3/uL 0.01-0.07 = 704-7) Lab Interpretation Abnormal (test code = 72362-4) [id number] 11:11:00 Test Item Value Reference Range Interpretation Comments ACT-ISTAT (test code 196 SEC 74-137 H Perform ed by certified = ACTI) chamfering 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 at [facility] CBC W/AUTO [id number] 17:02:00 Test Item Value Reference Range Interpretation [...] REQUIRED (test code NO = MDIFF) RBC [id number] 17:02:00 Test Item Value Reference Range Interpretation Comments ANISOCYTOSIS (test code = ANISO) 1+ POLYCHROMASIA (test code = POLC) SLIGHT POIKILOCYTOSIS (test code = POIK) 2+ MICROCYTOSIS (test code = MICR) 1+ TARGET CELLS (test code = TGT) RARE ELLIPTOCYTES (test code = ELL) 2+ ACANTHOCYTES (test code = ACAN) FEW NONE SCHISTOCYTES (test code = SERENITY) FEW BASIC METABOLIC [id number] 16:01:00 Test Item Value Reference Range Interpretation [...] = 8.5 mg/dL 8.0-10.5 N CA) PROTHROMBIN [id number] 15:56:00 Test Item Value Reference Range Interpretation [...] recurrent infar ct). - XR CHEST 2 [id number] 00:00:00 [facility] : 1950 Sex: F FAX: Manny Gonzalez MD [phone] [place]: St: PRE Name: MANJIT BHATT [facility] : 1950 Age/S: 71/F [address] [place] [address] Blvd Unit #: [id number] Loc: [place] [address] Phys: Manny Grey MD Acct: [id number] Dis Date: Status: PRE SDC PHONE #: [phone] Exam Date: 11/28/20211512 FAX #: [phone] Reason: PREOP EXAMS: CPT CODE: [id number] XR CHEST 2 V 42435 PROCEDURE INFORMATION: Exam: XR ChestExam date and [...] findings. IMPRESSION: No acute cardiopulmonary findings at 5915 Reported and signed by: Gildardo Mariee D.O. CC: Manny Grey MD Technologist: RT Eder(R) Trnscrd Date/Time/By: 11/28/2021 (8928) : By: [email or web address] Orig Print D/T: S: 11/28/2021 (1344) PAGE 1 Signed ReportGLUCOSE [id number] 16:22:00 Test Item Value Reference Range Interpretation Comments GLUCOSE BEDSIDE (test 138 MG/DL 70-110 H Perfor med by certified code = GLUBED) chamfering 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 at [facility] GLUCOSE [id number] 13:25:00 Test Item Value Reference Range Interpretation Comments GLUCOSE BEDSIDE (test 88 MG/DL 70-110 N Perfor med by certified code = GLUBED) chamfering 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 at [facility] GLUCOSE [id number] 09:51:00 Test Item Value Reference Range Interpretation Comments GLUCOSE BEDSIDE (test 121 MG/DL 70-110 H Perfor med by certified code = GLUBED) chamfering 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 at [facility] COVID 19 Asymptomatic IH [id number] 09:53:00 Test Item Value Reference Range Interpretation [...] high or waivedcomplexit y tests. CBC W/AUTO [id number] 09:10:00 Test Item Value Reference Range Interpretation [...] x10 3/uL 0.0-0.1 N NRBC#) BASIC METABOLIC [id number] 08:30:00 Test Item Value Reference Range Interpretation [...] = 9.0 mg/dL 8.0-10.5 N CA) PROTHROMBIN [id number] 08:23:00 Test Item Value Reference Range Interpretation [...] (to prevent recurrent infar ct). THROMBOPLASTIN TIME [id number] 08:23:00 Test Item Value Reference Range Interpretation Comments THROMBOPLASTIN TIME 30.6 Seconds 25.0-39.5 N Therape utic Range: PARTIAL (test code = 50.4 - 88.3 Seconds PTT) Effective 09/17/2018 - XR CHEST 2 [id number] 00:00:00 [facility] : 1950 Sex: F FAX: Rayne Miranda [phone] [place]: St: PRE FAX: Gillian Donato Name: MANJIT BHATT [facility] :1950 Age/S: 71/F [address] [place] [address] Unit #: [id number] Loc: [place] [address] Phys: Gillian Donato ENTRY LEVEL ACCOUNT EXECUTIVE Acct: [id number] Dis Date: Status: PRE [facility] PHONE #: [phone] Exam Date: 04/25/2021 0948 FAX #: [phone] Reason: PREOP EXAMS: CPT CODE: [id number] XR CHEST 2 V 32153 PROCEDURE INFORMATION: Exam: XR Chest Exam date [...] Unremarkable. No pleural effusion. No pneumothorax. Heart/Mediastinum: Coronaryartery stent noted. Bones/joints: Mild to moderate spondylosis and facet arthropathy in the spine. IMPRESSION: No acute cardiopulmonary abnormality, as detailed above. at 1107 Reported and signed by: Taurus Carpio M.D. CC: Rayne Ghosh MD; Gillian Doanto NP Technologist: RT Samanta(R) Trnscrd Date/Time/By: 04/25/2021 (1106) : By: [email or web address] Orig Print D/T: S: 04/25/2021 (140) PAGE 1 Signed Report Notes Date/Time Note Provider Source 2022-06-12 16:48:00-00:00 [facility] ([facility] Discharge Summary REPORT#:[id number] REPORT STATUS: Signed DATE:06/12/22 TIME: 1647 PATIENT: MANJIT BHATT UNIT #: [id number] ROOM/BED: [place] [address] : [birth year] AGE: 72 SEX: F ATTEND: Erica Valenzuela od, MD ADM AUTHOR: Bryant Zheng NP * ALL edits or amendments must be made on the [employer]/computer document * Bryant Zheng 06/12/22 1648: PCP PCP PCP: PCP: Ariadne Basilio NP Discharge to: home General Information Date [...] Follow-up Appointments PCP follow up: PCP: Ariadne Basilio ENTRY LEVEL ACCOUNT EXECUTIVE PCP follow up timeframe: In 2-3 weeks [...] MD on 0 06/13/22 at 1827 RPT #:[id number] END OF REPORT 2022-06-12 14:07:00-00:00 [id number] [place] [address] PATIENT NAME: MANJIT BHATT ADMIT DATE: 3 ACCOUNT NO: [id number] ROOM NO: RADAMES AGE: 72 REPORT TYPE: eECHOCARDIOGRAM REPORT SEX: F ADMITTING PHYSICIAN:Jonathon Valenzuela MD ATTENDING PHYSICIAN:Jonathon Valenzuela MD *[place] [address] Transthoracic Echocardiogram Patient: Manjit Bhatt Study Date: 06/12/2022 BP: 117 / 68 Location: [facility] URN: [id number] 4095 : 1950 Age: 72 Height: 49 in / 124.5 cm Gender: F Weight: 99. 8 lb / 45.4 kg BMI/BSA: 29.3 kg/m 2 / 1.28 m 2 *Ordering Physician: * Reba Rodriges *Interpreting Physician: * Whit Villareal MD *Event Organizer: * Aileen Guthrie Indications: Elevated troponin. Study [...] cavity size is normal. PATIENT NAME: MANJIT BHATT 4095 Systolic function is normal. Systolic pressure [...] E/e', avg, TDI 17 <=14 PATIENT NAME: MANJIT BHATT 4095 LVOT Value Ref Diam, S 1.81 [...] 2.03 cm 2 --------- PATIENT NAME: MANJIT BHATT 4095 Mitral valve Value Ref Peak E [...] 4.14 m/sec --------- Pulmonic valve Value Ref NJ v, ED 0.61 m/sec --------- Tricuspid valve [...] 0 06/12/22 at 1407 PATIENT NAME: MANJIT BHATT 4095 2022-06-12 13:33:00-00:00 [facility] Gastroenterology Progress Note REPORT#:[id number] REPORT STATUS: Signed DATE:06/12/22 TIME: 1333 PATIENT: MANJIT BHATT UNIT #: [id number] ROOM/BED: [place] [address] : [birth year] AGE: 72 SEX: F ATTEND: Erica Valenzuela od, MD ADM AUTHOR: Ye Sanches MD * ALL edits or amendments must be made on the [employer]/computer document * Subjective Chief complaint: Anemia HPI: This is a 72-year-old woman with PMH of HTN, HLD , DM, CVA, PAD who is status post LLE angiogram with stenting that occurred o n 06/06/2022 presents to the ER with chief complaint of BLE pain, and ac alatna anemia. She also developed a left- sided headache around 3 AM yesterday and so she was seen at [facility]. While there she underwent a CT scan [...] Ghosh who recommended pt to come to [facility]. Pt reports having 1 episode of [...] 3. Coffee ground emesis at 1336 RPT #:[id number] END OF REPORT 2022-06-12 13:18:00-00:00 [id number] [place] [address] PATIENT NAME: MANJIT BHATT ADMIT DATE: 3 ACCOUNT NO: [id number] ROOM NO: [facility] AGE: 72 REPORT TYPE: ENDOSCOPY REPORT SEX: F ADMITTING PHYSICIAN:Jonathon Valenzuela MD ATTENDING PHYSICIAN:Jonathon Valenzuela MD Gastroenterology Patient Name: Manjit Bhatt Procedure Date: 023 1:18 PM Date of [...] the patient. All questions were answered and infor med consent was obtained. - Patient identification and proposed procedure were verified prior to the procedure by the physici an, the nurse, the environmental services technician and the crime lab technician. The procedure was verified in the procedure room. - Pre-procedure physical examination revealed n o contraindications to sedation. - ASA Grade Assessment: III - A patient with se elizabeth systemic disease. - After reviewing the risks and benefits, the p atient was deemed in satisfactory condition to undergo the procedure. - Monitored anesthesia care under the supervisi on of a STARS SPECIALIST was determined to be medically necessary f or this procedure based on review of the patient's medi jenifer history, medications, and prior anesthesia hist ory. After I obtained informed consent, the scope wa s passed under direct vision. Throughout the proc edure, the patient's blood pressure, pulse, and oxygen saturations were monitored continuously. The Colonoscope was introduced through the anus wit h the intention of advancing to the cecum. The scope was PATIENT NAME: MANJIT BHATT 4095 advanced to the transverse colon before the pro cedure was aborted. Medications were given. The colono [...] Impression: - Preparation of the colon was poor. - Stool in the rectum, in the sigmoid colon, in the descending colon, at the splenic flexure and in the transverse colon. - No specimens collected. Recommendation: - Return patient to [facility] care. - Resume previous diet. - Continue present medications. - Repeat colonoscopy in 3 months for screening purposes. Procedure Code(s): --- Professional --- 25794, 53, Colonoscopy, flexible; diagnostic, including collection of specimen(s) by brushin g or washing, when performed (separate procedure) Diagnosis Code(s): --- Professional --- K92.1, Melena (includes Hematochezia) D62, Acute posthemorrhagic anemia CPT copyright 2020 [employer]. All rights reserved. The codes documented in this report are prelimin jeb and upon crab backer review may be revised to meet current compliance requiremen ts. Ye Sanches MD 06/12/2022 1:31:53 PM Number of Addenda: 0 Note Initiated On: 06/12/2022 1:18 PM Provation {[id number]}.pdf ProVation FT PDF at 1336 PATIENT NAME: MANJIT BHATT 4095 2022-06-12 12:51:00-00:00 [facility] ([facility]) Pain Management Consult Note REPORT#:[id number] REPORT STATUS: Signed DATE:06/12/22 TIME: 1251 PATIENT: MANJIT BHATT UNIT #: [id number] ROOM/BED: [place] [address] : 48 AGE: 72 SEX: F ATTEND: Erica Valenzuela od, MD ADM AUTHOR: Tahira Thomas ENTRY LEVEL ACCOUNT EXECUTIVE * ALL edits or amendments must be [...] Extremity Onset: gradual Duration: weeks Pain severity: /10 Nature of pain: aching Exacerbated by: movement [...] mellitus, Hypertension, Dyslipidemia, Periph arterial disease, Prior NV. Denies: Atrial fibrillation, Congestive heart failure. Past [...] 127/58 06/12 1147 B/P Mean 0.0 06/12 114 Temp 97.5 06/12 1147 Pulse 59 06/12 [...] soft Extremities: moves all (lower leg pain) Neuro/REGIONAL FACILITIES MANAGER: alert Results Findings/data: Laboratory Tests: 06/12 06/12 [...] PRN for pain 7-10 2nd carolee e -[place] 10/325 1tab q4hr PRN for pain 7-10 first line -[place] 5/325 1 tab q4hr PRN for pain [...] course of this admission as well as CERTIFIED OPTICIAN records reviewed Risk versus benefit of opiate [...] Tahira Thomas NP on 0 06/12/22 at 1529 RPT #:[id number] END OF REPORT 2022-06-12 12:44:00-00:00 [id number] [place] [address] PATIENT NAME: MANJIT BHATT ADMIT DATE: 3 ACCOUNT NO: [id number] ROOM NO: [facility] AGE: 72 REPORT TYPE: ENDOSCOPY REPORT SEX: F ADMITTING PHYSICIAN:Jonathon Valenzuela MD ATTENDING PHYSICIAN:Jonathon Valenzuela MD Gastroenterology Patient Name: Manjit Bhatt Procedure Date: 023 12:44 PM Date of : 1950 Procedure: Upper GI endoscopy Indications: Acute post hemorrhagic anemia, Tanner na Providers: Ye Sanches MD Referring MD: Requesting Provider: Medicines: Monitored Anesthesia Care Procedure: Pre-Anesthesia Assessment: - Prior to the procedure, a History and Physica l was performed, and patient medications, allergies a nd sensitivities were reviewed. The patient's zuly erance of previous anesthesia was reviewed. - The risks and benefits of the procedure and t he sedation options and risks were discussed with the patient. All questions were answered and inform ed consent was obtained. - Patient identification and proposed procedure were verified prior to the procedure by the physicia n, the nurse, the environmental services technician and the crime lab technician. The procedure was verified in the procedure room. - Pre-procedure physical examination revealed n o contraindications to sedation. - ASA Grade Assessment: III - A patient with se elizabeth systemic disease. - After reviewing the risks and benefits, the patient was deemed in satisfactory condition to undergo the procedure. - Monitored anesthesia care under the supervis ion of a STARS SPECIALIST was determined to be medically necessary f or this procedure based on review of the patient's medi jenifer history, medications, and prior anesthesia hist ory. After obtaining informed consent, the endoscope was passed under direct vision. Throughout the proc edure, the patient's blood pressure, pulse, and oxygen saturations were monitored continuously. The En doscope was introduced through the mouth, and advanced to the second part of duodenum. The upper GI endoscopy was PATIENT NAME: MANJIT BHATT 4095 accomplished without difficulty. The patient to [...] specimens collected. Recommendation: - Return patient to hospital wa rd for ongoing care. - Resume previous diet. - Continue present medications. Procedure Code(s): --- Professional --- 00087, Esophagogastroduodenoscopy, flexible, transoral; with ablation of tumor(s), polyp(s), or other lesion(s) (includes pre- and post-dilatio n and guide wire passage, when performed) 94525, 59, Esophagogastroduodenoscopy, flexibl e, transoral; with control of bleeding, any method Diagnosis Code(s): --- Professional --- K31.819, Angiodysplasia of stomach and duodenu m without bleeding K31.89, Other diseases of stomach and duodenum D62, Acute posthemorrhagic anemia K92.1, Melena (includes Hematochezia) CPT copyright 2020 [employer]. All rights reserved. The codes documented in this report are prelimin jeb and upon crab backer review may be revised to meet current compliance requiremen ts. Ye Sanches MD 06/12/2022 1:29:20 PM Number of Addenda: 0 PATIENT NAME: MANJIT BHATT 4095 Note Initiated On: 06/12/2022 12:44 PM Provation {[id number]}.pdf ProVation FT PDF at 1329 PATIENT NAME: MANJIT BHATT 4095 2022-06-12 11:55:00-00:00 [facility] Cardiology Progress Note REPORT#:[id number] REPORT STATUS: Signed DATE:06/12/22 TIME: 1155 PATIENT: MANJIT BHATT UNIT #: [id number] ROOM/BED: [place] [address] : 48 AGE: 72 SEX: F ATTEND: Erica Valenzuela od, MD ADM AUTHOR: Ezla Nash CNP * ALL edits or amendments must be made on the el [employer]/computer document * Subjective Comments: s/p EGD Objective [...] Hydralazine HCl (APRESOLINE) 2 MG PACU Q10MIN NJ N PRN IV Insulin Human Lispro (HUMALOG) [...] Sodium Chloride (SODIUM CHLORIDE) 10 ML ASDIR NJ N IV Clopidogrel Bisulfate (Plavix) 75 MG [...] normal temperature, no calf tenderness, no edema Neuro/REGIONAL FACILITIES MANAGER: alert, oriented X 3 Skin: dry Psychiatry: [...] H Results: labs reviewed, vital signs reviewed, [facility] personally rev'd Echo results: Summary: 1. Left [...] Signed by Whit Villareal MD on at 2332 RPT #:[id number] END OF REPORT 2022-06-12 07:24:00-00:00 [facility] ([facility]) Hospitalist Progress Note REPORT#:[id number] REPORT STATUS: Signed DATE:06/12/22 TIME: 723 PATIENT: MANJIT BHATT UNIT #: [id number] ROOM/BED: [place] [address] : 48 AGE: 72 SEX: F ATTEND: Erica Valenzuela od, MD ADM AUTHOR: Bryant Zheng ENTRY LEVEL ACCOUNT EXECUTIVE * ALL edits or amendments must be made on the [employer]/computer document * Bryant Zheng 06/12/22 0724: Subjective [...] Sodium Chloride (SODIUM CHLORIDE) 10 ML ASDIR NJ N IV Clopidogrel Bisulfate (Plavix) 75 MG DAILY PO Lisinopril (ZESTRIL) 10 MG DAILY PO Rivaroxaban (XARELTO 15MG) 15 MG DAILY PO Albuterol Sulfate (VENTOLIN HFA) 1 PUFF RTQ4H NJ N PRN INH (CAN) Albuterol Sulfate (ALBUTEROL SULFATE) 2.5 MG RTQ 4H PRN PRN NEB Hydroxyzine HCl (ATARAX) 25 MG Q6H PRN PO Insulin Human Lispro (HUMALOG) 0 AC HS SUBQ Acetaminophen (TYLENOL) 650 MG Q4H PRN PRN PO Dextrose/Water (DEXTROSE 10% IN WATER) 125 ML A SDIR PRN IV (CKD) Dextrose/Water (DEXTROSE 10% IN [...] CVA tenderness, no midline v ertebral tend Neuro/REGIONAL FACILITIES MANAGER: alert, oriented X 3, CNII-XII intact Results Findings/Data: Laboratory Tests 06/12 2332 2203 1653 0915 Chemistry Sodium (134 [...] Zheng NP Electronically Signed by Bryant Zheng ENTRY LEVEL ACCOUNT EXECUTIVE on 02/24 at 0726 Electronically Signed by Jonathon Valenzuela MD on 0 06/12/22 at 1856 RPT #:[id number] END OF REPORT 2022-06-11 11:31:00-00:00 [facility] ([facility] GE Consultation Note REPORT#:[id number] REPORT STATUS: Signed DATE:06/11/22 TIME: 1131 PATIENT: MANJIT BHATT UNIT #: [id number] ROOM/BED: [place] [address] : 48 AGE: 72 SEX: F ATTEND: Erica Valenzuela od, MD ADM AUTHOR: Ye Sanches MD * ALL edits or amendments must be made on the [employer]/computer document * History of Present Illness Requesting clinician: Jonathon Valenzuela Reason for consult: Anemia Chief complaint: Anemia PCP: PCP: Ariadne Basilio NP HPI: This is a 72-year-old woman with PMH of HTN, HLD , DM, CVA, PAD who is status post LLE angiogram with stenting that occurred o n 06/06/2022 presents to the ER with chief complaint of BLE pain, and ac alatna anemia. She also developed a left- sided headache around 3 AM yesterday and so she was seen at [facility]. While there she underwent a CT scan of her head/ brain that showed a old right lacunar infarct, otherwise n onactionable and she was noted to have a hemoglobin level of 4.6. She received 1 unit of PRB Cs transfusion, hemoglobin improved to 7.4 with plans for admission. Patient daughter r equested to leave [facility] due to frustration with the wait time for an inpatient bed. Due to concerns for GI bleeding she contaced Dr. Ghosh who recommended pt to come to [facility]. Pt reports having 1 episode of [...] mellitus, Hypertension, Dyslipidemia, Periph arterial disease, Prior NV. Denies: Atrial fibrillation, Congestive heart failure. Past [...] Ox 98 06/11 455 B/P 133/63 06/11 455 B/P Mean 0.0 06/11 455 O2 Delivery Room air 06/11 455 Temp 98.4 06/11 455 Pulse 67 06/11 455 Resp 21 06/11 455 24 hour I [...] clear ed by cardiology at 1140 RPT #:[id number] END OF REPORT 2022-06-11 09:12:00-00:00 [facility] ([facility]) Cardiology Consultation REPORT#:[id number] REPORT STATUS: Signed DATE:06/11/22 TIME: 911 PATIENT: MANJIT BHATT UNIT #: [id number] ROOM/BED: [place] [address] : 48 AGE: 72 SEX: F ATTEND: Erica Valenzuela od, MD ADM AUTHOR: Reba Rodriges NP * ALL edits or amendments must be made on the [employer]/computer document * History of Present Illness HPI [...] mellitus, Hypertension, Dyslipidemia, Periph arterial disease, Prior NV. Denies: Atrial fibrillation, Congestive heart failure. Past [...] normal temperature, no calf tenderness, no edema Neuro/REGIONAL FACILITIES MANAGER: alert, oriented X 3 Results Radiology Data: Recent Impressions: RADIOLOGY - XR CHEST 1 V 06/10 1710 Report Impression - Status: SIGNED Entered: 06/10/2022 182 IMPRESSION: Trace right pleural effusion/atelectasis. Mild cardiomegaly. Impression By: [email or web address] Hillary Sun ULTRASOUND - DOP ART ARCHITECTURAL DRAFTING INSTRUCTOR LEVEL LENA 06/10 182 Report Impression - [...] ratios. Impression By: [email or web address] - Hillary Sneed Diagnosis, Assessment Plan Free Text DxA P [...] 0 06/11/22 at 1437 at 1401 RPT #:[id number] END OF REPORT 2022-06-11 07:00:00-00:00 [facility] Hospitalist History Physical REPORT#:[id number] REPORT STATUS: Signed DATE:06/11/22 TIME: 07 PATIENT: MANJIT BHATT UNIT #: [id number] ROOM/BED: [place] [address] : 48 AGE: 72 SEX: F ATTEND: Erica Valenzuela od, MD ADM AUTHOR: Bryant Zheng ENTRY LEVEL ACCOUNT EXECUTIVE * ALL edits or amendments must be made on the el [employer]/computer document * Bryant Zheng 01/08/23 0700: History of Present Illness HPI Chief complaint: Le pain PCP: PCP: Ariadne Basilio ENTRY LEVEL ACCOUNT EXECUTIVE HPI: 72-year-old female with PMH of HTN, [...] today and so she was seen at [facility]. While there she underwent [...] mellitus, Hypertension, Dyslipidemia, Periph arterial disease, Prior NV. Denies: Atrial fibrillation, Congestive heart failure. Past [...] PO BID 04/25/21 Strength: 2 MG TAB 0867 7967 LISINOPRIL (ZESTRIL) 10 MG PO DAILY 04/11/22 Strength: 10 MG TAB 1114 6566 ATORVASTATIN (LIPITOR) 40 MG PO DAILY 04/11/22 06/10/22 Strength: 40 MG TAB 1115 6065 hydrOXYzine HCL (ATARAX) 25 MG PO 04/11/2212/24 [...] 06/11 899 UNV (XARELTO 15MG) PO 07/11 0859 Cardiovascular Drugs Sig/Serenity Start time Last Medication Dose Route Stop Time Status Admin Atorvastatin Calcium 40 MG DAILY 06/11 899 UNV (LIPITOR) PO 07/11 858 Lisinopril 10 MG DAILY 06/11 899 UNV (ZESTRIL) PO 07/11 0759 Central Nervous System Agents Sig/Serenity Start time Last Medication Dose Route Stop Time Status Admin Ropinirole HCl 1 MG BEDTIME 06/11 2100 UNV (REQUIP) PO 07/11 2058 Hydroxyzine HCl 25 MG Q6H PRN 06/11 699 UNV (ATARAX) PO 07/11 0659 Aspirin 324 MG ONCE ONE 06/10 2044 DC 06/10 (ASPIRIN) PO 06/10 204 2337 Acetaminophen 650 MG Q4H PRN PRN 06/10 1900 AC (TYLENOL) PO 06/11 174 Hydrocodone Bitart/ 1 TAB Q4H PRN PRN 06/10 190 0 AC 06/11 Acetaminophen PO 06/11 174 0228 (NORCO 5/325) Morphine Sulfate 4 MG Q4H PRN PRN 06/10 1900 AC 06/10 (morphine SULFATE) IV 06/11 174 2326 Morphine Sulfate 4 MG X1ED STA 06/10 1646 DC (morphine SULFATE) IV 06/10 164 1732 [...] Ondansetron HCl 4 MG X1ED STA 06/10 1646 DC (ZOFRAN) IV 06/10 164 1732 Hormones [...] Albuterol Sulfate (VENTOLIN HFA) 1 PUFF RTQ4H NJ N PRN INH (UNV) Albuterol Sulfate (ALBUTEROL [...] CVA tenderness, no midline v ertebral tend Neuro/REGIONAL FACILITIES MANAGER: alert, oriented X 3, CNII-XII intact Results [...] PT Patient/Control Mix (9.3 - 12.9 SECONDS) 11 .9 Laboratory Tests 06/10 1730 Hematology WBC (4.5 [...] % (Auto) (14.0 - 32.0 %) 15.0 [place] % (Auto) (4.8 - 9.0 %) 4.0 L Eos % (Auto) (0.3 - 3.7 %) 0.9 Baso % (Auto) (0.0 - 2.0 %) 0.7 Neut # (Auto) (2.0 - 7.6 x10 3/uL) 7.92 H Lymph # (Auto) (1.0 - 3.8 x10 3/uL) 1.50 [place] # (Auto) (0.1 - 0.8 x10 3/uL) [...] (0.0 - 0.1 x10 3/uL) 0. 00 Radiology data: Recent Impressions: RADIOLOGY - XR CHEST 1 V 06/10 0960 Report Impression - Status: SIGNED Entered: 06/10/2022 4890 IMPRESSION: Trace right pleural effusion/atelectasis. Mild cardiomegaly. Impression By: [email or web address] - Janice Bachhav, M.D . ULTRASOUND - DOP ART ARCHITECTURAL DRAFTING INSTRUCTOR LEVEL LENA 01/07 1827 Report Impression - Status: SIGNED Entered: [...] PT and OT. Monitor. Jonathon Valenzuela 06/12/22 5338: Attestations Physician Attestation Agree w/findings plan: Patient seen and examined, I agree with the findings and plans as documented by Bryant Zheng NP Electronically Signed by Bryant Zheng NP on 01/24 at 0705 Electronically Signed by Jonathon Valenzuela MD on 0 06/12/22 at 1855 [facility] #:[id number] END OF REPORT 2022-06-10 17:12:00-00:00 [facility] ([facility]) EMERGENCY PROVIDER REPORT REPORT#:[id number] REPORT STATUS: Signed DATE:06/10/22 TIME: 1711 PATIENT: MANJIT BHATT UNIT #: [id number] ROOM/BED: [place] [address] AGE: 72 SEX: F PCP PHYS: Ariadne Basilio ENTRY LEVEL ACCOUNT EXECUTIVE SERVICE AUTHOR: Elena Trent APR COOLER OPERATOR * ALL edits or amendments must be made on the [employer]/computer document * Elena Trent 06/10/22 1712: HPI-General [...] a nd so she was seen at [facility]. While there she underwent a CT scan [...] Initial Greet Date/Time 06/10/22 1502 PCP ariadne basilio NP-pcp caro-vascular surgeon Presentation Chief Complaint __ [...] mellitus, Hypertension, Dyslipidemia, Periph arterial disease, Prior NV. Denies: Atrial fibrillation, Congestive heart failure. Past [...] 06/10 1510 O2 Delivery Room air 06/10 151 Temp 36.6 06/10 1510 Pulse 87 06/10 1510 Resp 18 06/10 1510 Last Documented: Result Date Time Pulse Ox 99 06/10 1510 B/P 128/68 06/10 1510 B/P Mean 88 06/10 151 O2 Delivery Room air 06/10 151 Temp 36.6 06/10 1510 Pulse 87 06/10 [...] sxs. Ext: no obvious deformity. t race, ENTRY LEVEL ACCOUNT EXECUTIVE edema to BL feet, DP and PT pulses weak on the R, strong on the L. + sensation and brisk cap refill. calves supple and NT Back: Painless ROM Neuro: awake and alert, speech NL for age, behav ior age-appropriate. Skin: color NL, normal temperature, intact, no v isible rashes Interpretation Diagnostics Lab Results Interpretation Results Laboratory Tests 06/10/22 1740: [Embedded Image Not Available] 06/10/22 1730: [Embedded Image Not Available] Laboratory Tests: 06/10 06/10 06/10 1740 1740 1730 Chemistry Sodium (134 - 147 [...] Coagulation INR (0.8 - 1.2) 1.1 PTT (Long) (25.0 - 39.5 Seconds) 29.0 PT Patient/Control [...] % (Auto) (14.0 - 32.0 %) 15.0 [place] % (Auto) (4.8 - 9.0 %) 4.0 L Eos % (Auto) (0.3 - 3.7 %) 0.9 Baso % (Auto) (0.0 - 2.0 %) 0.7 Neut # (Auto) (2.0 - 7.6 x10 3/uL) 7.92 H Lymph # (Auto) (1.0 - 3.8 x10 3/uL) 1.50 [place] # (Auto) (0.1 - 0.8 x10 3/uL) [...] 1710 Report Impression - Status: SIGNED Entered: 06/10/20221823 IMPRESSION: Trace right pleural effusion/atelectasis. Mild cardiomegaly. Impression By: BrittanyVBHillary Chau ULTRASOUND - DOP ART ARCHITECTURAL DRAFTING INSTRUCTOR LEVEL LENA 06/10 182 Report Impression - Status: SIGNED Entered: 06/10/20221919 IMPRESSION: 1. The presence of monophasic flow [...] 99 On: Room air Interpretation Interpreted by , Pulse oximetr y normal Time 2042 ECG [...] notes reviewed: Yes Reviewed external notes: [facility]a [facility] record from [facility] including serum lab results and CT head/brain results Reviewed current results: Ye s, with noted elevated troponin decreased hemoglobin Independent [...] Consultation Consultation Referral/Consult Name Tracee Kirkpatrick MD Stain Sprayer Called Cardiology Requested Call Time 1834 Requested Call Date 06/10/22 Call Returned Call returned Call Returned Time 183 Call Returned Date 06/10/22 Stain Sprayer Will see patient, DISCUSSED SX, DIAG NOSTIC [...] Valenzuela MD Admit Physician Hospitalist Request Time 1830 Request Date 06/10/22 )( Admission Accepts Yes )( Accepted Time 1830 )( Accepted Date 06/10/22 Call Information will see patient, agrees with plan, PER SUMMIT, ENTRY LEVEL ACCOUNT EXECUTIVE Discharge/Care Plan Counseled Regarding Diagnosi s, Lab [...] Saw Pt Alone I have reviewed the PA/ENTRY LEVEL ACCOUNT EXECUTIVE's note and plan of car e. I was available for consultation as needed at al l times during the patient's visit in the emergency department. I agree with the clinical impression , plan and disposition. at 2053 Electronically Signed by John Saavedra MD on 01/24 at 1040 RPT #:[id number] END OF REPORT 2022-06-06 18:28:00-00:00 [facility] Operative Note - Full REPORT#:[id number] REPORT STATUS: Signed DATE:06/06/22 TIME: 1827 PATIENT: MANJIT BHATT UNIT #: [id number] ROOM/BED: : 48 AGE: 72 SEX: F ATTEND: Roberto Ghosh MD ADM AUTHOR: Rayne Ghosh MD * ALL edits or amendments must be made on the el [employer]/computer document * Operative Report ORM Surgeries: Surgery Date and Time: 06/06/2022 1430 Primary Procedure: ANGIOGRAM LEFT LEG,BALLOON A NGIOPLASTY Start date: 06/06/22 Start time: 1630 Pre-procedure diagnosis: 1. Atherosclerosis of [place] arteries left leg w ith rest pain 2. Left leg criticallimb ischemia 3. Left superficial femoral artery and popliteal artery occlusion Post-procedure diagnosis: same Procedures performed: 1. Percutaneous ultrasound-guided active access right common femoral artery with images maintained for record [id number] 2. Bilateral lower extremity arteriogram 92542 3. Percutaneous pharmacomechanical throm bectomy with Angiojet 6 Sol[place] of left superficial femoral artery, popliteal artery, an d tibioperoneal artery with power-pulse/TPA 74486, 61192 4. Placement of popliteal artery stent graft 5 m m x 5 cm Viabahn with post angioplasty 68313 5. Left tibioperoneal artery stents, 3.5 mm - 6 mm Intact Tack stents X 6 with 3.5 mm post angioplasty, pos terior tibial artery 2.5 mm balloon angioplasty with placement of 300 ug of nitroglycerine 84703 6. Left anterior tibial artery 2.5 mm balloon an d proximal 3.5 mm balloon angioplasty proximally 77430 Technique/Procedure: The patient was brought into the operative room and prepped and draped in the usual sterile manner. Percut aneous ultrasound-guided active access was obtained to the right common femoral artery with a microc atheter system and exchanged over a Glidewire to a 6 [place] 10 cm sheath. An Omni Flush cath [...] The sheath was exchanged to a 6 [place] 45 cm sheath which was advanced across [...] the PACU. Primary Surgeon: Dr. Rayne Ghosh Orthodontic Technician Assistant(s): none Anesthesia: general anesthesia Operative findings: The [...] removed/altered: thrombus Implant(s): stents at 1850 RPT #:[id number] END OF REPORT 2022-06-06 18:08:[facility]00[facility] Brief Op Note REPORT#:[id number] REPORT STATUS: Signed DATE:06/06/22 TIME: 180 PATIENT: MANJIT BHATT UNIT #: [id number] ROOM/BED: : 48 AGE: 72 SEX: F ATTEND: Roberto Ghosh MD ADM AUTHOR: Rayne Ghosh MD * ALL edits or amendments must be made on the el [employer]/computer document * Op/Inv Proc Note - Brief ORM Surgeries: Surgery Date and Time: 06/06/2022 1430 Primary Procedure: ANGIOGRAM LEFT LEG,BALLOON A NGIOPLASTY Pre-procedure diagnosis: 1. Atherosclerosis of [place] arteries left leg w ith rest pain 2. Left leg criticallimb ischemia 3. Left superficial femoral artery and popliteal artery occlusion Post-procedure diagnosis: same as pre procedure dx Procedures performed: 1. Percutaneous ultrasound-guided active access right common femoral artery with images maintained for record [id number] 2. Bilateral lower extremity arteriogram 66399 3. Percutaneous pharmacomechanical throm bectomy with Angiojet 6 [place] of left superficial femoral artery, popliteal artery, an d tibioperoneal artery with power-pulse/TPA 26180, 67071 4. Placement of popliteal artery stent graft 5 m m x 5 cm Viabahn with post angioplasty 56263 5. Left tibioperoneal artery stents, 3.5 mm - 6 mm Intact Tack stents X 6 with 3.5 mm post angioplasty, pos terior tibial artery 2.5 mm balloon angioplasty with placement of 300 ug of nitroglycerine 19607 6. Left anterior tibial artery 2.5 mm balloon an d proximal 3.5 mm balloon angioplasty proximally 18574 Primary Surgeon: Dr. Rayne Ghosh Orthodontic Technician Assistant(s): none Anesthesia: general anesthesia Findings: The right [...] cc Specimens removed/altered: thrombus at 1850 RPT #:[id number] END OF REPORT 2022-06-06 18:01:00-00:00 [facility] ([facility] Brief Discharge Note w/Med Rec REPORT#:[id number] REPORT STATUS: Signed DATE:06/06/22 TIME: 1801 PATIENT: MANJIT BHATT UNIT #: [id number] ROOM/BED: : 48 AGE: 72 SEX: F ATTEND: Roberto Ghosh MD ADM AUTHOR: Rayne Ghosh MD * ALL edits or amendments must be made on the [employer]/computer document * Med Rec Med Rec Discharge [...] % (Auto) (14.0 - 32.0 %) 25.0 [place] % (Auto) (4.8 - 9.0 %) 7.0 Eos % (Auto) (0.3 - 3.7 %) 2.6 Baso % (Auto) (0.0 - 2.0 %) 1.0 Neut # (Auto) (2.0 - 7.6 x10 3/uL) 5.90 Lymph # (Auto) (1.0 - 3.8 x10 3/uL) 2.30 [place] # (Auto) (0.1 - 0.8 x10 3/uL) [...] (0.0 - 0.1 x10 3/uL) 0.0 0 Polychromasia 1+ Hypochromasia 2+ Poikilocytosis 1+ Anisocytosis 3+ Microcytosis 2+ Macrocytosis 2+ Schistocytes FEW Radiology data: Recent Impressions: RADIOLOGY - XR CHEST 1 V 06/06 1126 Report Impression - Status: SIGNED Entered: 06/06/2022 1247 IMPRESSION: No acute cardiopulmonary findings. Impression By: Hillary Winston VS/I O Last Documented: Result Date Time Pulse Ox 100 06/06 173 B/P 181/77 06/06 1731 O2 Delivery Simple mask 06/06 173 O2 Flow Rate 5 06/06 1731 Temp 98.4 06/06 1731 Pulse 92 06/06 1731 Resp 21 06/06 1731 Brief Discharge Note w/Med Rec Discharge to: Home/Self Care Discharge diagnosis: atherosclerosis of [place] arteries left leg with rest pain Pt. [...] timeframe: In 1-2 weeks at 1802 RPT #:[id number] END OF REPORT 2022-04-15 15:30:00-00:00 [facility] ([facility]) Cardiology Progress Note REPORT#:[id number] REPORT STATUS: Signed DATE:04/15/22 TIME: 1530 PATIENT: MANJTI BHATT UNIT #: [id number] ROOM/BED: [place] [address] : 48 AGE: 72 SEX: F ATTEND: Vonda Bell ADM AUTHOR: Elza Nash RAIL MAINTENANCE WORKER * ALL edits or amendments must be made on the [employer] document * Subjective Patient reports: No: complaints. [...] 15 143/67 100 Simple 10 mask 04/14 183 76 16 133/61 100 Simple 10 mask [...] D) Fentanyl Citrate (SUBLIMAZE) 100 MCG PACU Q10MIN PRN PRN IV (DC) Fentanyl Citrate (SUBLIMAZE) 50 MCG PACU Q10MIN PRN PRN IV (DC) Hydralazine HCl (APRESOLINE) 5 MG PACU Q10MIN NJ N PRN IV (DC) Hydrocodone Bitart/Acetaminophen (NORCO 5/325) 1 TAB PACU ONCE PO (DC) Hydromorphone HCl (DILAUDID) 1 MG PACU Q10MIN NJ N PRN IV (DC) Hydromorphone HCl (DILAUDID) [...] (DCD) Lactated Ringer's (LACTATED RINGERS) 1,000 ML NJ EOP ONCALL IV (DCD) Lidocaine HCl (LIDOCAINE HCL/PF) 2 ML PREOP ONCA LL LOCAL (DCD) Lidocaine HCl (LIDOCAINE HCL/PF) 2 ML PREOP ONCA LL LOCAL (DCD) Sodium Chloride (SODIUM CHLORIDE 0.9%) 500 ML NJ EOP ONCALL IV (DCD) Sodium Chloride (SODIUM CHLORIDE 0.9%) 500 ML NJ EOP ONCALL IV (DCD) Sodium Chloride (SODIUM CHLORIDE 0.9%) 1,000 ML PREOP ONCALL IV (DCD) Sodium Chloride (SODIUM CHLORIDE) 5 ML ASDIR PRN IV (DCD) Sodium Chloride (SODIUM CHLORIDE) 10 ML ASDIR NJ N IV (DCD) Sodium Chloride (SODIUM CHLORIDE [...] peripheral pulse ( left foot), no edema Neuro/REGIONAL FACILITIES MANAGER: alert, normal speech Skin: dry, intact, normal color Psychiatry: normal affect, normal mood Results Findings/Data: Laboratory Tests 04/15 04/15 04/14 04/14 1103 0709 2109 1833 Chemistry POC Glucose (70 - 110 MG/DL) 100 156 H 119 H 1 03 Results: no new labs, vital signs reviewed, [facility] personally rev'd Telemetry Interpretation: sinus rhythm Diagnosis, [...] atherecto my with 2.5 mm balloon angioplasty 70719 -Left anterior tibial artery amd posterior tibial artery percutaneous mechanical thrombectomy with CATRX penumbra device 83635, 3 2765 -Left superficial femoral an d popliteal artery stents, 5 m X 25 cm, 5 mm X 15 cm , 6 mm X 2.5 cm viabahns 09898 -Left Common iliac artery stent 7 mm X 29 mm Vis ipro balloon expandable stent 96050 2. Coronary artery disease with prior PCI/stent No chest Continue medical therapy 3. Tobacco abuse/COPD Strongly encouraged to quit smoking 4. Hypertension Continue lisinopril 5. Diabetes mellitus Manage per admitting physician 6. Hyperlipidemia Continue statin Okay to DC from cardiology. Outpatient follow-up with Dr. Grey in 1-2 weeks at 1539 Electronically Signed by Whit Villareal MD on at 1440 RPT #:[id number] END OF REPORT 2022-04-15 10:18:00-00:00 [facility] ([facility]) Discharge Summary REPORT#:[id number] REPORT STATUS: Signed DATE:04/15/22 TIME: 1018 PATIENT: MANJIT BHATT UNIT #: [id number] ROOM/BED: [place] [address] : 48 AGE: 72 SEX: F ATTEND: Vonda Bell ADM AUTHOR: Indiana Cardoso APRN * ALL edits or amendments must be made on the Foody/computer document * PCP PCP PCP: PCP: No [...] Findings/Data: Laboratory Tests: 04/15 04/14 04/14 04/14 0709 2109 1833 1132 Chemistry POC Glucose (70 [...] MG DAILY 04/14 900 AC PO 05/14 859 Lidocaine 1 PATCH DAILY 04/14 900 DCr TOPICAL 05/14 859 Lisinopril 10 MG BEDTIME 04/13 2100 AC PO 05/13 2059 Ropinirole HCl 4 MG BEDTIME 04/13 2100 DC PO 05/13 2059 Lidocaine 1 PATCH DAILY 04/13 1645 UNVr TOPICAL 05/13 163 Dextrose/Water 125 ML ASDIR PRN 04/13 1600 [...] 1130 AC IV 05/11 2359 Sodium Chloride 500 ML [...] by Indiana Cardoso APRN on at 2231 Electronically Signed by Kirti Ac MD on 1 06/16/21 at 1712 RPT #:[id number] END OF REPORT 2022-04-14 18:40:00-00:00 [facility] ([facility]) Operative Note - Full REPORT#:[id number] REPORT STATUS: Signed DATE:04/14/22 TIME: 1840 PATIENT: MANJIT BHATT UNIT #: [id number] [place]: [facility] : 48 AGE: 72 SEX: F ATTEND: Vonda Bell ADM AUTHOR: Rayne Ghosh MD * ALL edits or amendments must be made on the el ectronic/computer document * Operative Report ORM Surgeries: Surgery Date and Time: 04/14/2022 1615 Primary Procedure: ANGIOGRAMS LOWER EXTREMITY L EFT Start date: 04/14/22 Start time: 1630 Pre-procedure diagnosis: Left leg critical limb ischemia Left lower extremity atherosclerosis [place] rahul rupert with rest pain Left femoral-popliteal artery occlusion Post-procedure diagnosis: same Procedures performed: 1. Percutaneous ultrasound g uided access right common femoral artery with images [place] record [id number] 2. Abdominal aortagram 11800 3. Bilateral lower extreity arteriograms 34845 4. Left anterior tibial artery 0.9 laser atherec dudley with 2.5 mm balloon angioplasty 83956 5. Left anterior tibial artery amd posterior tib ial artery percutaneous mechanical [place] [address], [address] 6. Left superficial femoral and popliteal artery stents, 5 m X 25 cm, 5 mm X 15 cm, 6 mm X 2.5 cm viabahns 62197 7. Left Common iliac artery stent 7 mm X 29 mm Visipro balloon expandable stent 74556 8. Percutaneous ultrasound g uided access retrograd left posterior tibial artery 96562-23 Technique/Procedure: The patient was brought into the operative room and prepped and draped in the usual sterile manner. Percut aneous ultrasound-guided active access was obtained to the right common femoral artery with a microc atheter system and exchanged over a Glidewire to a 6 [place] 10 cm sheath. An Omni Flush cath [...] sheath wa s exchanged to a 6 [place] 90 cm sheath which was advanced across [...] wire was exchanged changed into the 6 [place] sheath and a body floss was obtained. The wire was exchanged to a 0.014 wire and p ercutaneous thrombectomy was completed again with a CAT Rx system of the entire length of the tibioperoneal trunk and posterior tibial artery. Angioplasty was then co mpleted with a 3 mm balloon. The wire [...] angioplastied with a 6 mm balloon. This frisian elded good flow and good result and [...] the PACU. Primary Surgeon: Dr. Rayne Ghosh Orthodontic Technician Assistant(s): none Anesthesia: general anesthesia Operative findings: Abdominal [...] stenosis. The peroneal artery is patent to [facility] [place]. Left lower extremity arterio [...] stent and stent grafts at 1847 RPT #:[id number] END OF REPORT 2022-04-14 18:30:00-00:00 [facility] REPORT#:[id number] REPORT STATUS: Signed DATE:04/14/22 TIME: 1829 PATIENT: MANJIT BHATT UNIT #: [id number] ROOM/BED: [place] [address] : 48 AGE: 72 SEX: F ATTEND: Vonda Bell ADM AUTHOR: Rayne Ghosh MD * ALL edits or amendments must be made on the el [employer]une[employer]/computer document * Op/Inv Proc Note - Brief ORM Surgeries: Surgery Date and Time: 04/14/2022 1615 Primary Procedure: ANGIOGRAMS LOWER EXTREMITY L EFT Pre-procedure diagnosis: Left leg critical limb ischemia Left lower extremity atherosclerosis [place] rahul rupert with rest pain Left femoral-popliteal artery occlusion Post-procedure diagnosis: same as pre procedure dx Procedures performed: 1. Percutaneous ultrasound g uided access right common femoral artery with images [place] record [id number] 2. Abdominal aortagram 16174 3. Bilateral lower extreity arteriograms 13042 4. Left anterior tibial artery 0.9 laser atherec dudley with 2.5 mm balloon angioplasty 94142 5. Left anterior tibial artery amd posterior tib ial artery percutaneous mechanical [place] [address], [address] 6. Left superficial femoral and popliteal artery stents, 5 m X 25 cm, 5 mm X 15 cm, 6 mm X 2.5 cm viabahns 75929 7. Left Common iliac artery stent 7 mm X 29 mm Visipro balloon expandable stent 10092 8. Percutaneous ultrasound g uided access retrograd left posterior tibial artery 63436-76 Primary Surgeon: Dr. Rayne Ghosh Orthodontic Technician Assistant(s): none Anesthesia: general anesthesia Findings: Abdominal exam [...] stenosis. The peroneal artery is patent to [facility] [place]. Left lower extremity arterio [...] none Specimens removed/altered: thrombus at 1847 RPT #:[id number] END OF REPORT 2022-04-14 12:37:00-00:00 [facility]) Hospitalist Progress Note REPORT#:[id number] REPORT STATUS: Signed DATE:04/14/22 TIME: 1237 PATIENT: MANJIT BHATT UNIT #: [id number] ROOM/BED: [place] [address] : 48 AGE: 72 SEX: F ATTEND: Vonda Bell ADM AUTHOR: Vonda Bell MD * ALL edits or amendments must be made on the Food[employer]/computer document * Subjective Chief complaint: she complaint [...] (CKD) Lactated Ringer's (LACTATED RINGERS) 1,000 ML NJ EOP ONCALL IV Lidocaine HCl (LIDOCAINE HCL/PF) 2 ML PREOP ONCA LL LOCAL Lidocaine HCl (LIDOCAINE HCL/PF) 2 ML PREOP ONCA LL LOCAL Sodium Chloride (SODIUM CHLORIDE 0.9%) 500 ML NJ EOP ONCALL IV Sodium Chloride (SODIUM CHLORIDE 0.9%) 500 ML NJ EOP ONCALL IV Sodium Chloride (SODIUM CHLORIDE 0.9%) 1,000 ML PREOP ONCALL IV Sodium Chloride (SODIUM CHLORIDE) 5 ML ASDIR PRN IV Sodium Chloride (SODIUM CHLORIDE) 10 ML ASDIR NJ N IV Sodium Chloride (SODIUM CHLORIDE 0.9%) [...] all, no calf tenderness, no e tk Neuro/REGIONAL FACILITIES MANAGER: alert, oriented X 3, CNII-XII intact, normal [...] % (Auto) (14.0 - 32.0 %) 22.2 [place] % (Auto) (4.8 - 9.0 %) 7.7 Eos % (Auto) (0.3 - 3.7 %) 1.7 Baso % (Auto) (0.0 - 2.0 %) 0.7 Neut # (Auto) (2.0 - 7.6 x10 3/uL) 7.31 Lymph # (Auto) (1.0 - 3.8 x10 3/uL) 2.41 [place] # (Auto) (0.1 - 0.8 x10 3/uL) [...] MG DAILY 04/14 900 AC PO 05/14 859 Lidocaine 1 PATCH DAILY 04/14 900 DCr [...] Bell MD on 2 at 1240 RPT #:[id number] END OF REPORT 2022-04-14 10:08:00-00:00 HC[facility]L [facility] Cardiology Progress Note REPORT#:[id number] REPORT STATUS: Signed DATE:04/14/22 TIME: 1008 PATIENT: MANJIT BHATT UNIT #: [id number] ROOM/BED: 3345-1 : 48 AGE: 72 SEX: F ATTEND: Vonda Bell ADM AUTHOR: Elza Nash RAIL MAINTENANCE WORKER * ALL edits or amendments must be made on the Food[employer]/computer document * Subjective Chief complaint: left leg pain Objective General VS/I O: 24 hour I O ending at 0700: 04/14 0700 04/13 1900 Intake Total 120 240 Output Total Balance 120 240 Intake, Oral 120 240 Number Voids 2 1 Vital Signs: Date Time Temp Pulse Resp B/P B/P Pulse O2 O2 F low FiO2 Mean Ox Delivery Rate 04/14 0718 36.6 63 16 139/54 82.3 [...] (CKD) Lactated Ringer's (LACTATED RINGERS) 1,000 ML NJ EOP ONCALL IV Lidocaine HCl (LIDOCAINE HCL/PF) 2 ML PREOP ONCA LL LOCAL Lidocaine HCl (LIDOCAINE HCL/PF) 2 ML PREOP ONCA LL LOCAL Sodium Chloride (SODIUM CHLORIDE 0.9%) 500 ML NJ EOP ONCALL IV Sodium Chloride (SODIUM CHLORIDE 0.9%) 500 ML NJ EOP ONCALL IV Sodium Chloride (SODIUM CHLORIDE 0.9%) 1,000 ML PREOP ONCALL IV Sodium Chloride (SODIUM CHLORIDE) 5 ML ASDIR PRN IV Sodium Chloride (SODIUM CHLORIDE) 10 ML ASDIR NJ N IV Sodium Chloride (SODIUM CHLORIDE 0.9%) [...] peripheral pulse ( left foot), no edema Neuro/REGIONAL FACILITIES MANAGER: alert, normal speech Skin: dry, intact, normal [...] % (Auto) (14.0 - 32.0 %) 22.2 [place] % (Auto) (4.8 - 9.0 %) 7.7 Eos % (Auto) (0.3 - 3.7 %) 1.7 Baso % (Auto) (0.0 - 2.0 %) 0.7 Neut # (Auto) (2.0 - 7.6 x10 3/uL) 7.31 Lymph # (Auto) (1.0 - 3.8 x10 3/uL) 2.41 [place] # (Auto) (0.1 - 0.8 x10 3/uL) [...] Signed by Whit Villareal MD on at 1439 RPT #:[id number] END OF REPORT 2022-04-13 17:04:00-00:00 HCACL [facility] Hospitalist Progress Note REPORT#:[id number] REPORT STATUS: Signed DATE:04/13/22 TIME: 1704 PATIENT: MANJIT BHATT UNIT #: [id number] ROOM/BED: 3345-1 : 48 AGE: 72 SEX: F ATTEND: Vonda Bell ADM AUTHOR: Vonda Bell MD * ALL edits or amendments must be made on the el [employer]/computer document * Subjective Chief complaint: she complaint [...] Enoxaparin Sodium (lovENOX) 40 MG Q24H SUBQ (UN V) Glucagon (GLUCAGON) 1 MG ASDIR PRN IM [...] Hydralazine HCl (APRESOLINE) 5 MG PACU Q10MIN NJ N PRN IV (DC) Hydrocodone Bitart/Acetaminophen (NORCO 5/325) 1 TAB PACU ONCE PO (DC) Hydromorphone HCl (DILAUDID) 1 MG PACU Q10MIN NJ N PRN IV (DC) Hydromorphone HCl (DILAUDID) 0.5 MG PACU Q5MIN P RN PRN IV (DC) Insulin Human Lispro (HUMALOG) 0 PACU ONCE PRN S UBQ (DC) Labetalol HCl (LABETALOL HCL) 5 MG PACU Q10MIN PRN PRN IV (DC) Meperidine HCl (DEMEROL 50MG/ML) [...] (CKD) Lactated Ringer's (LACTATED RINGERS) 1,000 ML NJ EOP ONCALL IV Lidocaine HCl (LIDOCAINE HCL/PF) 2 ML PREOP ONCA LL LOCAL Lidocaine HCl (LIDOCAINE HCL/PF) 2 ML PREOP ONCA LL LOCAL Sodium Chloride (SODIUM CHLORIDE 0.9%) 500 ML NJ EOP ONCALL IV Sodium Chloride (SODIUM CHLORIDE 0.9%) 500 ML NJ EOP ONCALL IV Sodium Chloride (SODIUM CHLORIDE 0.9%) 1,000 ML PREOP ONCALL IV Sodium Chloride (SODIUM CHLORIDE) 5 ML ASDIR NJ N IV Sodium Chloride (SODIUM CHLORIDE) 10 ML ASDIR NJ N IV Sodium Chloride (SODIUM CHLORIDE 0.9%) [...] all, no calf tenderness, no e tk Neuro/REGIONAL FACILITIES MANAGER: alert, oriented X 3, CNII-XII intact, normal [...] 05/14 0859 Lidocaine 1 PATCH DAILY 04/14 09 DCr TOPICAL 05/14 0859 Lisinopril 10 MG [...] PRN PRN 04/12 073 0 DC IV 11/09 1721 Meperidine HCl 12.5 MG PACU ONCE [...] Vonda Bell MD on 2 at 1713 [facility] #:[id number] END OF REPORT 2022-04-13 14:04:00-00:00 [facility] ([facility]) Hospitalist History Physical REPORT#:[id number] REPORT STATUS: Signed DATE:04/13/22 TIME: 1404 PATIENT: MANJIT BHATT UNIT #: [id number] ROOM/BED: [place] [address] : 48 AGE: 72 SEX: F ATTEND: Vonda Bell MD ADM AUTHOR: Vonda Bell MD * ALL edits or amendments must be made on the Food[employer]/computer document * See Addendum History of Present [...] Pulse Ox 97 04/13 1548 B/P 148/66 04/13 1548 B/P Mean 93.0 04/13 1548 O2 [...] all, no calf tenderness, no e tk Neuro/REGIONAL FACILITIES MANAGER: alert, oriented X 3, CNII-XII intact, normal [...] 110 MG/DL) 83 85 90 143 H 14 3 H 04/12 04/12 04/12 04/11 1537 1150 [...] mg/dL) 8.5 Laboratory Tests 04/12 04/12 04/11 0921 0857 1055 Coagulation INR (0.8 - 1.2) 1.0 PT Patient/Control Mix (9.3 - 12.9 SECONDS) 10. 9 Activated Coag Time (SECONDS) 224 225 H [...] % (Auto) (14.0 - 32.0 %) 29.8 [place] % (Auto) (4.8 - 9.0 %) 7.3 Eos % (Auto) (0.3 - 3.7 %) 2.4 Baso % (Auto) (0.0 - 2.0 %) 1.6 Neut # (Auto) (2.0 - 7.6 x10 3/uL) 4.84 Lymph # (Auto) (1.0 - 3.8 x10 3/uL) 2.46 [place] # (Auto) (0.1 - 0.8 x10 3/uL) [...] (0.0 - 0.1 x10 3/uL) 0. 00 Anisocytosis 2+ Microcytosis 2+ Macrocytosis 1+ Target [...] 05/14 0859 Lidocaine 1 PATCH DAILY 04/14 09 DCr TOPICAL 05/14 0859 Lisinopril 10 MG [...] Citrate 50 MCG PACU Q10MIN PRN PRN 11/0 9 0730 DC IV 04/12 1721 Hydralazine HCl 5 MG PACU Q10MIN PRN PRN 04/12 0 730 DC IV 04/12 1721 Hydrocodone Bitart/ 1 TAB PACU ONCE 04/12 0730 D C Acetaminophen PO 04/12 1721 Hydromorphone HCl 1 MG PACU Q10MIN PRN PRN 04/12 0730 DC IV 04/12 1721 Hydromorphone HCl 0.5 MG PACU Q5MIN PRN PRN 11 9 0730 DC IV 04/12 1721 Insulin [...] that the foregoing medication list in t medical record is true, accurate, and complete to the best of my knowled ge. Electronically Signed by Vonda Bell MD on 2 at 1708 Addendum 1: 04/13/22 171 by Vonda Bell MD note delay enter due to med[employer] down yesterday Electronically Signed by Vonda Bell MD on 2 at 1711 RPT #:[id number] END OF REPORT 2022-04-13 13:27:00-00:[address] [facility] Cardiology Progress Note REPORT#:[id number] REPORT STATUS: Signed DATE:04/13/22 TIME: 1327 PATIENT: MANJIT BHATT UNIT #: [id number] ROOM[place]ED: [facility] : 48 AGE: 72 SEX: F ATTEND: Vonda Bell ADM AUTHOR: Elza Nash RAIL MAINTENANCE WORKER * ALL edits or amendments must be made on the Food[employer]/computer document * Subjective Chief complaint: left leg pain Objective General VS/I O: 24 hour I O ending at 0700: 04/13 0700 04/12 1900 Intake Total 500 Output Total Balance 500 Intake, Oral 500 Number Voids 3 Vital Signs: Date Time Temp Pulse Resp B/P B/P Pulse O2 O2 F low FiO2 Mean Ox Delivery Rate 04/13 111 36.4 67 18 163/56 91.8 97 Room [...] Hydralazine HCl (APRESOLINE) 5 MG PACU Q10MIN NJ N PRN IV (DC) Hydrocodone Bitart/Acetaminophen (NORCO 5/325) 1 TAB PACU ONCE PO (DC) Hydromorphone HCl (DILAUDID) 1 MG PACU Q10MIN NJ N PRN IV (DC) Hydromorphone HCl (DILAUDID) [...] (CKD) Lactated Ringer's (LACTATED RINGERS) 1,000 ML NJ EOP ONCALL IV Lidocaine HCl (LIDOCAINE HCL/PF) 2 ML PREOP ONCA LL LOCAL Lidocaine HCl (LIDOCAINE HCL/PF) 2 ML PREOP ONCA LL LOCAL Sodium Chloride (SODIUM CHLORIDE 0.9%) 500 ML NJ EOP ONCALL IV Sodium Chloride (SODIUM CHLORIDE 0.9%) 500 ML NJ EOP ONCALL IV Sodium Chloride (SODIUM CHLORIDE 0.9%) 1,000 ML PREOP ONCALL IV Sodium Chloride (SODIUM CHLORIDE) 5 ML ASDIR PRN IV Sodium Chloride (SODIUM CHLORIDE) 10 ML ASDIR NJ N IV Sodium Chloride (SODIUM CHLORIDE 0.9%) [...] peripheral pulse ( left foot), no edema Neuro/REGIONAL FACILITIES MANAGER: alert, normal speech Skin: dry, intact, normal color Psychiatry: normal affect, normal mood Results Findings/Data: Laboratory Tests 04/13 04/13 04/12 04/12 04/12 1106 0711 1945 1945 1537 Chemistry POC Glucose (70 - 110 MG/DL) 85 90 143 H 143 H 171 H Results: labs reviewed, vital signs reviewed, [facility] personally rev'd Telemetry Interpretation: sinus rhythm Diagnosis, [...] Signed by Whit Villareal MD on at 1439 RPT #:[id number] END OF REPORT 2022-04-13 08:59:00-00:00 HC[facility]L [facility] ([facility]) Cardiology Consultation REPORT#:[id number] REPORT STATUS: Signed DATE:04/13/22 TIME: 858 PATIENT: MANJIT BHATT UNIT #: [id number] ROOM/BED: [place] [address] : 48 AGE: 72 SEX: F ATTEND: Vonda Bell ADM AUTHOR: Elza Nash RAIL MAINTENANCE WORKER * ALL edits or amendments must be made on the [employer]/computer document * History of Present Illness HPI [...] mellitus, Hypertension, Dyslipidemia, Periph arterial disease, Prior [place]. Denies: Atrial fibrillation, Congestive heart failure. Past [...] Hydralazine HCl (APRESOLINE) 5 MG PACU Q10MIN NJ N PRN IV (DC) Hydrocodone Bitart/Acetaminophen (NORCO 5/325) 1 TAB PACU ONCE PO (DC) Hydromorphone HCl (DILAUDID) 1 MG PACU Q10MIN NJ N PRN IV (DC) Hydromorphone HCl (DILAUDID) 0.5 MG PACU Q5MIN P RN PRN IV (DC) Insulin Human Lispro (HUMALOG) 0 PACU ONCE PRN S UBQ (DC) Labetalol HCl (LABETALOL HCL) 5 MG PACU Q10MIN P RN PRN IV (DC) Meperidine HCl (DEMEROL 50MG/ML) 12.5 MG PACU ON CE PRN IV (DC) Morphine Sulfate (morphine SULFATE) 2 MG PACU Q 10MIN PRN PRN IV (DC) Ondansetron HCl (ZOFRAN) 4 MG PACU ONCE PRN IV ( DC) Ropivacaine (NAROPIN 0.5% 150 MG/30mL) 150 MG DIR PRN LOCAL (DC) Tramadol HCl (ULTRAM) 50 MG PACU ONCE PO (DC) Acetaminophen (TYLENOL EXTRA STRENGTH) 1,000 MG PREOP ONCALL PO (CKD) Lactated Ringer's (LACTATED RINGERS) 1,000 ML NJ EOP ONCALL IV Lidocaine HCl (LIDOCAINE HCL/PF) 2 ML PREOP ONCA LL LOCAL Lidocaine HCl (LIDOCAINE HCL/PF) 2 ML PREOP ONCA LL LOCAL Sodium Chloride (SODIUM CHLORIDE 0.9%) 500 ML NJ EOP ONCALL IV Sodium Chloride (SODIUM CHLORIDE 0.9%) 500 ML NJ EOP ONCALL IV Sodium Chloride (SODIUM CHLORIDE 0.9%) 1,000 ML PREOP ONCALL IV Sodium Chloride (SODIUM CHLORIDE) 5 ML ASDIR PRN IV Sodium Chloride (SODIUM CHLORIDE) 10 ML ASDIR NJ N IV Sodium Chloride (SODIUM CHLORIDE 0.9%) [...] peripheral pulse ( left foot), no edema Neuro/REGIONAL FACILITIES MANAGER: alert, normal speech Psychiatry: normal affect, normal mood Results Findings/Data: Laboratory Tests 04/1311 1945 1945 1537 1150 Chemistry POC Glucose [...] Signed by Whit Villareal MD on at 3345 RPT #:[id number] END OF REPORT 2022-04-12 09:37:00-00:00 [phone] [address] PATIENT NAME: MANJIT BHATT ADMIT DATE: 2 ACCOUNT NO: [id number] [place] [facility] 72 REPORT TYPE: OPERATIVE REPORT SEX: F ADMITTING PHYSICIAN:Vonda Bell MD ATTENDING PHYSICIAN:Vonda Bell MD OPERATION DATE: 04/12/2022 PREOPERATIVE DIAGNOSIS: POSTOPERATIVE DIAGNOSIS: PROCEDURE PERFORMED: 1. Peripheral angiogram. 2. Angioplasty of totally occluded left SFA sten t. I used a 6 x 150 mm balloon. SURGEON: Manny Grey MD BOOM CONVEYOR OPERATOR: ANESTHESIA: INDICATIONS: Severe peripheral vascular disease with severe pain. ACCESS: Right femoral artery, 6-[place] closed wi th manual pressure. PROCEDURE IN [...] a m icropuncture kit and placed a 6-[place] sheath and took a crossover sheath into the distal aorta with a [place] Advantage wire acros s to the other side and then placed a 6-[place] Irish 45 cm destination sheath. Before the angiogram, there was a WAITRESS of the SFA on the left. Using a [place] Advantage wire and NaviCross was able to [...] we will plan for her to [facility] Surgery on further action plan [...] the distal aorta also PATIENT NAME: MANJIT BHATT [id number] on the right SFA is totally occluded [...] Date Transcribed: 04/12/2022 11:44:37 /BHARATHI Receipt ID: [id number] Authenticated by Manny Grey MD On 05/10/2022 01:19:24 PM Electronically Signed by Manny Grey MD on at 0119 PATIENT NAME: MANJIT BHATT [id number] 2022-04-11 11:13:00-00:00 [phone] [place] [address] PATIENT NAME: MANJIT BHATT ADMIT DATE: ACCOUNT NO: [id number] ROOM NO: AGE: 72 REPORT TYPE: eELECTROCARDIOGRAM REPORT SEX: F ADMITTING PHYSICIAN: ATTENDING PHYSICIAN:Manny Grey MD Order: [id number] Test Reason : PRE OP Test Date/Time [...] BEE MD at 1552 PATIENT NAME: MANJIT BHATT [id number] 2021-11-30 13:07:00-00:00 [phone] [address] PATIENT NAME: MANJIT BHATT ADMIT DATE: 2 ACCOUNT NO: [id number] ROOM NO: AGE: 72 REPORT TYPE: CARDIAC CATHETERIZATION REPORT SEX: F ADMITTING PHYSICIAN: ATTENDING PHYSICIAN:Manny Grey MD PROCEDURE DATE: 11/30/2021 PROCEDURE PERFORMED: 1. Peripheral angiogram. 2. Attempt of a percutaneous intervention on the totally occluded right SFA that failed. ACCESS: Left femoral artery, 6-Northern Irish closed wit h Mynx closure device. COMPLICATIONS: [...] guidance fluoroscopy and micropuncture kit and placed 6-[place] sheath. The entrance point was above the stent and the femoral artery. Then, I took an Omniflush cathet er into the aorta and using [place] Advantage, crossed into the right side and placed the wire in the left femoral artery and then took a Destinati on sheath and exchange of the 6-[place] sheath and did john ogram and the right SFA is occluded ostially and it is a long WAITRESS. It reconstitutes above th e knee in [...] for a retrograde attempt to open the WAITRESS. CONCLUSION: WAITRESS of the right SFA ostially all th e way to the mid thigh. PLAN: We will reschedule the patient to reattemp t this percutaneous intervention with a retrograde approach and anes thesia to be available. Dictated By: Manny Grey MD WT: CATH:DIANA/LUCA/MICHEL PATIENT NAME: MANJIT BHATT 8713 Conf#: [id number]/DID#: [id number] Authenticated by Manny Grey MD On 04/05/2022 09:55:39 AM Electronically Signed by Manny Grey MD on at 0955 PATIENT NAME: MANJIT BHATT [id number] 2021-11-28 15:16:00-00:00 [phone] [place] [address] PATIENT NAME: MANJIT BHATT ADMIT DATE: ACCOUNT NO: [id number] ROOM NO: AGE: 71 REPORT TYPE: eELECTROCARDIOGRAM REPORT SEX: F ADMITTING PHYSICIAN: ATTENDING PHYSICIAN:Manny Grey MD Order: [id number] Test Reason : PREOP Test Date/Time Stamp: SunNov 28 2021 15:16:26 Blood Pressure : / mmHG Vent. Rate : 072 BPM Atrial Rate : 072 BPM P-R Int : 108 ms QRS Dur : 086 ms QT Int : 378 ms P-R-T Axes : -09 071 029 degree s QTc Int : 413 ms Sinus rhythm with short NJ Abnormal ECG PRE_OP Confirmed by LAMAR PEARCE MD ([id number]) on 11/29/19 5:04:47 PM Referred By: Manny Grey Confirmed by:LAMAR BEE MD at 1708 PATIENT NAME: MANJIT BHATT 8713 2021-04-26 15:41:00-00:00 [facility] ([facility]) Operative Note - Full REPORT#:[id number] REPORT STATUS: Signed DATE:04/26/21 TIME: 1541 PATIENT: MANJIT BHATT UNIT #: [id number] ROOM/BED: : 48 AGE: 71 SEX: F [...] wors e than right with atherosclerosis of [place] arteries Post-procedure diagnosis: same Procedures performed: 1. Percutaneous ultrasound-guided active access right common femoral artery with images maintained [place] record [id number] 2. Abdominal aortogram 21303 3. Left lower extremity unilateral arteriogram 7 4589 4. Placement of left superficial femoral and popliteal artery stent graft 5 mm x 25 cm Viabahn and 6 mm x 10 cm Viabahn's with post angioplasty 91422 5. Percutaneous pharmacomechanical thrombectomy with 6 Cat Penumbra device of left popliteal artery for possible thrombus 3718 4 6. Right external iliac artery drug-coated ballo on angioplasty 39506 Technique/Procedure: The patient was brought into the operating room prepped and draped in usual sterile manner. Percutaneous ultrasound-guided a ctive access was obtained to right common femoral artery microcatheter system and exchanged over a Glidewire to a 6 [place] 10 cm sheath. An Omni Flush cath [...] ded superficial femoral-popliteal arteries and the 6 [place] 90 cm sheath was advanced to the [...] y occlusion. Primary Surgeon: Dr. Rayne Ghosh Orthodontic Technician Assistant(s): none Anesthesia: general anesthesia Operative findings: Abdominal [...] common femoral artery is patent with a group home ed left profunda femoris occlusion by previous [...] thrombus Implant(s): stent grafts at 1546 RPT #:[id number] END OF REPORT 2021-04-26 15:32:00-00:00 [facility] Brief Op Note REPORT#:[id number] REPORT STATUS: Signed DATE:04/26/21 TIME: 1532 PATIENT: MANJIT BHATT UNIT #: [id number] ROOM/BED: : 48 AGE: 71 SEX: F ATTEND: Roberto Ghosh MD ADM AUTHOR: Rayne Ghosh MD * ALL edits or amendments must be made on the [employer]/computer document * Op/Inv Proc Note - Brief ORM Surgeries: Surgery Date and Time: 04/26/2021 0915 Proposed Primary Procedure: LLE ARTERIOGRAM, PO SSIBLE ANGIOPLASTY, Pre-procedure diagnosis: 1. Bilateral superficial femoral artery thrombos is 2. Aortoiliac disease with atherosclerosis of th e abdominal aorta 3. Bilateral lower extremity rest pain left wors e than right with atherosclerosis of [place] arteries Post-procedure diagnosis: same as pre procedure dx Procedures performed: 1. Percutaneous ultrasound-guided active access right common femoral artery with images maintained for record [id number] 2. Abdominal aortogram 90586 3. Left lower extremity unilateral arteriogram 7 8649 4. Placement of left superficial femoral and popliteal artery stent graft 5 mm x 25 cm Viabahn and 6 mm x 10 cm Viabahn's with post angioplasty 82131 5. Percutaneous pharmacomechanical thrombectomy with 6 Cat Penumbra device of left popliteal artery for possible thrombus 3718 4 6. Right external iliac artery drug-coated ballo on angioplasty 70405 Primary Surgeon: Dr. Rayne Ghosh Orthodontic Technician Assistant(s): none Anesthesia: general anesthesia Findings: Abdominal gram [...] common femoral artery is patent with a group home ed left profunda femoris occlusion by previous [...] in ml's: none Specimens removed/altered: thrombus at 1543 RPT #:[id number] END OF REPORT 2021-04-26 15:27:00-00:00 [facility] ([facility]) Brief Discharge Note w/Med Rec REPORT#:[id number] REPORT STATUS: Signed DATE:04/26/21 TIME: 1527 PATIENT: MANJIT BHATT UNIT #: [id number] ROOM/BED: : 48 AGE: 71 SEX: F ATTEND: Roberto Ghosh MD ADM AUTHOR: Rayne Ghosh MD * ALL edits or amendments must be made on the el [employer]/computer document * Med Rec Med Rec Discharge [...] MD Attending physician follow up timeframe: In 1- 2 weeks at 1527 RPT #:[id number] END OF REPORT 2021-04-25 07:46:00-00:00 [id number] [address] PATIENT NAME: MANJIT BHATT ADMIT DATE: ACCOUNT NO: [id number] ROOM NO: AGE: 71 REPORT TYPE: eELECTROCARDIOGRAM REPORT SEX: F ADMITTING PHYSICIAN: ATTENDING PHYSICIAN:Rayne Ghosh MD Order: [id number] Test Reason : PREOP Test Date/Time Stamp: [...] Rayne Ghosh Confirmed by:LAMAR PEARCE MD at 2725 PATIENT NAME: MANJIT BHATT [id number]
[2022-11-11 05:14] LABS: Absolute Lymphocytes (CBC) 1.7 K/uL (0.7-4.9); Hematocrit 17.1 % (36.0-45.0); MCV 71.3 fL (80-100); MPV 6.3 fL (7.6-11.3)
[2022-11-11 05:33] LABS: Bilirubin Total 0.8 mg/dL (0.2-1.0); Potassium 4.2 mEq/L (3.5-5.1); Protein, Total 6.3 g/dL (6.4-8.2); Troponin High Sensitivity 10.8 pg/mL (<58.9)
[2022-11-11 06:40] LABS: Anisocytosis 1+; Blood Morphology Comment NOTED (NOT SEEN); Hypochromasia 1+; Platelet Estimate ADEQ
--- NOTE | 2022-11-11 07:51 | P.CNS ---
Date of Consult: 11/11/22 Reason for Consult: Gastrointestinal bleeding Requesting Physician: Manuel Trejo Chief Complaint: Generalized weakness History of Present Illness: Patient is a 72-year-old female who came to the hospital with generalized weakness. She is complaining of pain in her left leg. She had history of peripheral arterial disease. She also has a history of coronary artery disease. She had a stent placed recently. This was in the right coronary artery. This was done about a month ago. She states her daughter states that she also had endoscopic procedure done at our hospital. However, there is no record of any endoscopic procedure. Patient states she is on Xarelto, Brilinta, and aspirin. At this time, she will be transfused 2 units of packed red blood cells. We will go ahead and repeat her H&H. We do not have gastroenterology services at our facility this weekend. Recommendations are for transfer. Patient is echocardiogram showed an ejection fraction of 53%. She does have some diastolic heart failure with poor compliance. We will go ahead and get her started on IV fluids. Allergies Penicillins Allergy (Verified 11/02/21 13:48) Itching Home Medications: Lisinopril 10 mg PO DAILY 05/07/15 Metformin HCl 1,000 mg PO BID 05/07/15 Ropinirole HCl 4 mg PO TID 05/07/15 Atorvastatin Calcium [Lipitor] 40 mg PO DAILY 03/04/21 Fluticasone [Flovent Hfa 110*] 2 appl IH PRN 03/04/21 Albuterol Neb [Proventil 0.083% Neb Soln] 2.5 mg NEB Q6HP PRN #60 amp 10/08/22 Hydrocodone 10/APAP 325 [[place] 10/325] 1 tab PO Q6H PRN #30 tab 10/08/22 ALPRAZolam [Xanax*] 0.5 mg PO BID 10/12/22 Pantoprazole [Protonix Tab*] 40 mg PO DAILY 10/12/22 Rivaroxaban [Xarelto*] 15 mg PO DAILY 10/12/22 Clopidogrel Bisulfate [Plavix*] 75 mg PO DAILY #30 tab 10/13/22 Metoprolol Tartrate [Lopressor*] 12.5 mg PO BID 6AM 6PM #30 tab 10/13/22 Torsemide [Demadex*] 20 mg PO DAILY #30 tab 10/13/22 lisinopriL [Lisinopril] 5 mg PO DAILY #30 tab 10/13/22 - Past Medical/Surgical History Diabetic: Yes -: CVAx2 -: CAD/ IN -: COPD/ SubPleural Nodule -: Diastolic CHF -: NIDDM -: HTN -: Hyperlipidemia -: Anxiety -: CKD III with Proteinuria -: Heart stents -: Gisele -: Tubal ligation -: L neck sx Psychosocial/ Personal History: patient is retired. lives at home with family. - Family History Mother Medical History: Heart disease, Diabetes - Social History Smoking Status: Current every day smoker Alcohol use: No CD- Drugs: No Caffeine use: Yes Review of Systems 10-point ROS is otherwise unremarkable Physical Examination Reviewed General: Alert, In no apparent distress, Oriented x3 HEENT: Atraumatic, PERRLA, Mucous membr. moist/pink, EOMI, Sclerae nonicteric Neck: Supple, 2+ carotid pulse no bruit, No LAD, Without JVD or thyroid abnormality Respiratory: Clear to auscultation bilaterally, Normal air movement Cardiovascular: Regular rate/rhythm, Normal S1 S2 Gastrointestinal: Normal bowel sounds, Soft and benign, Non-distended, No tenderness Musculoskeletal: No clubbing, No swelling, No tenderness Integumentary: No rashes Neurological: Normal gait, Normal speech, Normal tone, Sensation intact, Cranial nerves 3-12 intact, Normal affect Lymphatics: No axilla or inguinal lymphadenopathy Laboratory Data (last 24 hrs) 11/11/22 05:06: Sodium 128 L, Potassium 4.2, BUN 23 H, Creatinine 1.33 H, Glucose 176 H, Total Bilirubin 0.8, AST 10 L, ALT 11 L, Alkaline Phosphatase 96 11/11/22 05:06: WBC 10.40, Hgb 5.5 L*, Hct 17.1 L, Plt Count 417 H - Problems (1) Acute blood loss anemia Current Visit: Yes Status: Acute (2) H/O right coronary artery stent placement Current Visit: Yes Status: Acute (3) PAD (peripheral artery disease) Current Visit: Yes Status: Acute (4) Restless leg syndrome Current Visit: Yes Status: Acute (5) Congestive heart failure Current Visit: No Status: Acute Qualifiers: (6) Fatty liver Onset Date: 02/26/17 Current Visit: No Status: Acute (7) COPD (chronic obstructive pulmonary disease) Current Visit: No Status: Chronic Qualifiers: (8) Diabetes mellitus Current Visit: No Status: Chronic Qualifiers: (9) Hypertension Current Visit: No Status: Chronic Qualifiers: Conclusions/ Impression: Plan: A. Acute blood loss anemia Continue with IV hydration and PPI drip. Continue with IV antibiotics. Continue with pain control. NPO. GI consultation. Serial H&H, and we will monitor LFTs and lipase along with electrolytes. B. Right coronary artery stent placement; continue with antiplatelet therapy. In the setting of active GI bleeding we may need to hold off on this but she is at a high risk of in-stent stenosis. C. Atrial fibrillation; we need to keep rate controlled but hold off on blood thinner D. Restless leg syndrome; patient is n.p.o. so we will have to try to medicate her with medication E. Peripheral arterial disease she needs to continue monitoring her circulatory issues Patient is to be transferred to a tertiary care facility where they have multiple specialties that can assist in her care. Over the weekend we do not have GI available so this will jeopardize her in case she starts bleeding actively in the setting of antiplatelet and anticoagulation. Critical Care: Yes Time Spent Managing Pts care (In Minutes): 50
[2022-11-11] MEDS ORDERED: NA CHLORIDE 0.9% 1,000 ML IV SCH (08:00)
[2022-11-11] MEDS ORDERED: PANTOPRAZOLE INJ 80 MG in NA CHLORIDE 0.9% 250 ML IV SCH ×4 (08:00)
--- NOTE | 2022-11-11 08:02 | ER ---
Nurse's Notes [facility] Name: Mukul Larson Age: 72 yrs Sex: Female : 1950 Arrival Date: 11/11/2022 Time: 04:18 Bed 2 Private MD: Mick Mauricio E Diagnosis: Anemia, unspecified;Dyspnea, unspecified Presentation: 11/11 04:38 Chief complaint: Chief complaint: Patient states: SOB,onset 1 hour ago while sleeping. pf1 Patient denies any chest pain at this time. 04:38 Coronavirus screen: Vaccine status: Patient reports being unvaccinated. Client denies pf1 travel out of the [place] in the last 14 days. Client presents with at least one sign or symptom that may indicate coronavirus-19. Ebola Screen: Patient negative for fever greater than or equal to 101.5 degrees Fahrenheit, and additional compatible Ebola Virus Disease symptoms. Initial Sepsis Screen: Does the patient meet any 2 criteria? HR > 90 bpm. No. Patient's initial sepsis screen is negative. Does the patient have a suspected source of infection? No. Patient's initial sepsis screen is negative. Risk Assessment: Do you want to hurt yourself or someone else? Patient reports no desire to harm self or others. 04:38 Method Of Arrival: Wheelchair pf1 04:38 Acuity: APOLONIA 3 pf1 Historical: - Allergies: 05:09 PENICILLINS; pf1 - PMHx: 05:23 Anxiety; CAD; CHF; COPD; CVA; Diabetes - NIDDM; High Cholesterol; Hypertension; MO; ll3 - PSHx: 05:23 cardiac stent; ll3 - Immunization history:: Adult Immunizations up to date, Client reports having NOT received the Covid vaccine. Last tetanus immunization: < 5 years ago Flu vaccine is not up to date. - Social history:: Smoking status: Patient reports the use of cigarette tobacco products, smokes one-half pack cigarettes per day, Patient/guardian denies using alcohol, street drugs. Screenin:57 [facility] ED Fall Risk Assessment (Adult) History of falling in the last 3 months, ss including since admission No falls in past 3 months (0 pts). Abuse screen: Denies threats or abuse. Denies injuries from another. Nutritional screening: No deficits noted. Tuberculosis screening: Never had TB. Assessment: 07:15 General: Appears uncomfortable, Behavior is cooperative, anxious, Denies fever, feeling ss ill. Pain: Complains of pain in right leg and left leg Pain currently is 10 out of 10 on a pain scale. Quality of pain is described as "Restless legs" did not take last dose of requip. Neuro: Level of Consciousness is awake, alert, obeys commands. Respiratory: Airway is patent Respiratory effort is even, unlabored, Respiratory pattern is regular, symmetrical. Respiratory: Breath sounds are clear bilaterally. Denies shortness of breath. GI: Reports black stools. Unknown days. Patient currently denies nausea, vomiting. Derm: Skin is intact, is healthy with good turgor, Skin is pink, warm \\T\\ dry. normal. Derm: redness great toe. Scabs noted between toes. Pt reports she has been treating the areas with Neosporin. Musculoskeletal: Range of motion: intact in all extremities. 08:15 Reassessment: assisted patient to restroom VIA wheelchair. Voided x 1. ss 09:30 Reassessment: 1st unit of PRBCs started now. ss 12:00 Reassessment: 1st unit PRBC completed now. ss 12:15 Reassessment: Patient appears in no apparent distress at this time. Respiratory: Airway ss is patent Respiratory effort is even, unlabored, Respiratory pattern is regular, symmetrical. Derm: Skin is pink, warm \\T\\ dry. normal. 12:15 Reassessment: 2nd unit of PRBC starting now. ss 12:45 Reassessment: Patient appears in no apparent distress at this time. Patient and/or ss family updated on plan of care and expected duration. Pain level reassessed. assisted patient to bedside commode. Voided x 1. Respiratory: Respiratory effort is even, unlabored. 12:57 Reassessment: Care handed off to [facility]. Vital Signs: 04:38 BP 118 / 70; Pulse 93; Resp 20; Temp 98.1; Pulse Ox 100% on R/A; Weight 48.53 kg; pf1 Height 4 ft. 11 in. ; Pain 0/10; 05:52 BP 119 / 92; Pulse 90; Resp 18 S; Pulse Ox 100% on R/A; as6 09:19 BP 109 / 48; Pulse 100; Resp 18; Pulse Ox 95% on R/A; ss 09:45 BP 123 / 54; Pulse 73; Resp 16; Pulse Ox 100% on R/A; ss 12:45 ss 04:38 Body Mass Index 21.61 (48.53 kg, 149.86 cm) pf1 04:38 Pain Scale: Adult pf1 12:45 SEE TRANSFUSION FLOW SHEET FOR ADDITIONAL VS ss ED Course: 04:24 Patient arrived in ED. es 04:24 Mick Mauricio MD is Private Physician. es 04:47 Manuel Trejo MD is Attending Physician. bs3 05:00 Arm band placed on Patient placed in an exam room, on a stretcher, on pulse oximetry. ll3 05:09 Triage completed. pf1 05:10 Inserted saline lock: 22 gauge in left antecubital area, using aseptic technique. Blood oe collected. 05:13 XRAY Chest (1 view) In Process Unspecified. EDMS 05:32 Notified ED physician of a critical lab result(s). HBG 5.5. ll3 07:02 Albania Hudson, CONCEPCIÓN is Primary Nurse. iw 07:19 Attending Physician role handed off by Manuel Trejo MD rn 07:19 Theodore Cosby MD is Attending Physician. rn 08:08 initiated a transfer with Zaynab from the [facility] transfer center at the request of the eb patient. 08:16 per Zaynab [facility] will have to decline the patient in transfer/ they do not have eb GI hydrogen plant operations manager this weekend. 08:20 initiated a transfer with Kaci from the [facility] Transfer Center. eb 08:25 Protime (+inr) Sent. iw 08:25 Ptt, Activated Sent. iw 08:[address] Mora the hospitalist hydrogen plant operations manager for [facility] with Dr. Cosby for patient eb transfer consultation. 09:01 administrative approval given by Kaci Godinez/ patient has been accepted to [facility] room 2418/ Dr. Radha Mora has accepted the patient in transfer. report to be called to [phone]. 09:06 Inserted saline lock: 20 gauge in right antecubital area, using aseptic technique. ss Blood collected. 12:57 Patient has correct armband on for positive identification. ss 13:08 Allison Deras, CONCEPCIÓN is Primary Nurse. ss 13:08 No provider procedures requiring assistance completed. Patient transferred, IV remains ss in place. Administered Medications: 08:25 Drug: HYDROcodone-acetaminophen PO 5 mg-325 mg 1 tabs Route: PO; iw 09:18 Drug: rOPINIRole Extended Release 24 hour Tablet 4 mg {Note: ER unavailable in pharmacy ss per pharmacist [place]TE, but after consultation with Dr. Cosby, OK to given now.} Route: PO; 09:18 Drug: Pantoprazole IVP 40 mg Route: IVP; Site: right antecubital; ss 09:18 Drug: Pantoprazole IV 8 mg/hr Route: IV; Rate: 25 ml/hr; Site: right antecubital; Medication: 12:00 Blood products: PRBCs X 1 unit given. ss 12:57 VIS not applicable for this client. ss Outcome: 08:02 ER care complete, transfer ordered by . rn 13:08 Transferred by ground EMS to [facility], Transfer form completed. ss X-rays sent w/ patient. 13:08 Condition: good 13:08 Instructed on the need for transfer. 13:09 Patient left the ED. ss Signatures: Dispatcher [employer] EDMS Ayana Mauricio Irene RN RN Theodore Cosby MD MD rn Blanchard, Shelby, RN RN Daniele Benavidez Elizabeth eb Slawson, Ashby, RN RN as6 Marlo Pizano RN RN ll3 Manuel Trejo MD MD bs3 Marielle Hernandez RN RN pf1 Corrections: (The following items were deleted from the chart) 05:09 05:02 Chief complaint: pf1 pf1 05:35 05:32 Notified ED physician of a critical lab result(s). WBC 5.5 ll3 ll3 09:05 08:[address] García the hospitalist hydrogen plant operations manager for [facility] with Dr. Cosby for eb patient transfer consultation. eb 19:16 12:00 Reassessment: 1st unit of PRBCs started now. ss ss
--- NOTE | 2022-11-11 08:02 | EDPHYS ---
Physician Documentation [facility] Name: Mukul Larson Age: 72 yrs Sex: Female : 1950 Arrival Date: 11/11/2022 Time: 04:18 Bed 2 Private MD: Mick Mauricio E ED Physician Theodore Cosby HPI: 11/11 06:44 This 72 yrs old Female presents to ER via Wheelchair with complaints of bs3 Breathing Difficulty. 06:44 72-year-old female history of CHF, CAD, COPD, ljx-kdxdktv-[id number] diabetes, bs3 peripheral vascular disease on Xarelto possible history of deep vein thrombosis presents with shortness of breath tonight she woke up and felt like she could not breathe she took an inhaler twice without relief and therefore came in she denies any significant chest pain she denies any nausea vomiting or anything else bothering her. Historical: - Allergies: 05:09 PENICILLINS; pf1 - PMHx: 05:23 Anxiety; CAD; CHF; COPD; CVA; Diabetes - NIDDM; High Cholesterol; Hypertension; MO; ll3 - PSHx: 05:23 cardiac stent; ll3 - Immunization history:: Adult Immunizations up to date, Client reports having NOT received the Covid vaccine. Last tetanus immunization: < 5 years ago Flu vaccine is not up to date. - Social history:: Smoking status: Patient reports the use of cigarette tobacco products, smokes one-half pack cigarettes per day, Patient/guardian denies using alcohol, street drugs. ROS: 06:44 Constitutional: Negative for fever, chills bs3 06:44 All other systems are negative. Exam: 06:44 Constitutional: Appears anxious, Head/Face: Normocephalic, atraumatic. Eyes: Pupils bs3 equal round and reactive to light, extra-ocular motions intact. Lids and lashes normal. ENT: mmm, no posterior phyarngeal erythema Chest/axilla: Normal chest wall appearance and motion. Nontender with no deformity. No lesions are appreciated. Cardiovascular: Regular rate and rhythm with a normal S1 and S2. symmetric pulses in upper extremities Respiratory: Lungs have equal breath sounds bilaterally, clear to auscultation, no respiratory distress Abdomen/GI: Soft, non-tender, no rebound or guarding Skin: Warm, dry with normal turgor. Normal color with no rashes, no lesions, and no evidence of cellulitis. MS/ Extremity: Pulses equal, no cyanosis. Neurovascular intact. Full, normal range of motion. Neuro: Awake and alert, GCS 15, oriented to person, place, time, and situation. Cranial nerves II-XII grossly intact. Motor strength 5/5 in all extremities. Sensory grossly intact. 06:44 Normal sinus rhythm at [address] elevations or depressions QTc 440 not significantly changed from prior Vital Signs: 04:38 BP 118 / 70; Pulse 93; Resp 20; Temp 98.1; Pulse Ox 100% on R/A; Weight 48.53 kg; pf1 Height 4 ft. 11 in. ; Pain 0/10; 05:52 BP 119 / 92; Pulse 90; Resp 18 S; Pulse Ox 100% on R/A; as6 09:19 BP 109 / 48; Pulse 100; Resp 18; Pulse Ox 95% on R/A; ss 09:45 BP 123 / 54; Pulse 73; Resp 16; Pulse Ox 100% on R/A; ss 12:45 ss 04:38 Body Mass Index 21.61 (48.53 kg, 149.86 cm) pf1 04:38 Pain Scale: Adult pf1 12:45 SEE TRANSFUSION FLOW SHEET FOR ADDITIONAL VS ss MDM: 04:47 Patient medically screened. bs3 06:44 Differential diagnosis: Anemia Anxiety Reaction asthma, Bronchitis CHF exacerbation, bs3 Chronic Obstructive Pulmonary Disease Myocardial Infarction pneumonia, Pneumothorax pulmonary edema, Unstable Angina. Data reviewed: vital signs, nurses notes. ED course: We will check labs will get x-ray will evaluate for electrolyte abnormality and reassess Her labs were notable for decreased hemoglobin from prior patient adamantly denying any black stools or bright red blood per rectum I recommended transfer for further evaluation patient states that she does not want to be transferred and wants brought in to be discharged home after receiving blood she notes that she has been transfer multiple times and they do not do anything for her we will plan to admit. 07:58 Counseling: I had a detailed discussion with the patient and/or guardian regarding: the rn historical points, exam findings, and any diagnostic results supporting the discharge/admit diagnosis, lab results, the need to transfer to another facility. 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 Blood started by Dr. Trejo, consulted with Dr. Raymundo, recommends transfer for GI evaluation.. 08:17 ED course: [facility] on GI diversion, will have to try another facility. . rn 08:59 ED course: Accepting doctor requests 1st unit transfused and can be transferred with rn 2nd unit going. . 11/11 04:48 Order name: CBC with Diff; Complete Time: 07:05 bs3 11/11 04:48 Order name: Comprehensive Metabolic Panel; Complete Time: 05:36 bs3 11/11 04:48 Order name: Troponin High Sensitivity; Complete Time: 05:36 bs3 11/11 04:48 Order name: BNP; Complete Time: 05:36 bs3 11/11 06:11 Order name: Type And Screen bs3 11/11 06:13 Order name: Type and Screen EDMS 11/11 06:41 Order name: Manual Differential; Complete Time: 07:05 EDMS 11/11 07:59 Order name: Protime (+inr); Complete Time: 08:55 rn 11/11 07:59 Order name: Ptt, Activated; Complete Time: 08:55 rn 11/11 08:57 Order name: SARS RAPID rn 11/11 04:48 Order name: XRAY Chest (1 view) bs3 11/11 04:48 Order name: EKG - Nurse/Tech; Complete Time: 04:59 bs3 Administered Medications: 08:25 Drug: HYDROcodone-acetaminophen PO 5 mg-325 mg 1 tabs Route: PO; iw 09:18 Drug: rOPINIRole Extended Release 24 hour Tablet 4 mg {Note: ER unavailable in pharmacy ss per pharmacist [place], but after consultation with Dr. Cosby, OK to given now.} Route: PO; 09:18 Drug: Pantoprazole IVP 40 mg Route: IVP; Site: right antecubital; ss 09:18 Drug: Pantoprazole IV 8 mg/hr Route: IV; Rate: 25 ml/hr; Site: right antecubital; ss Disposition: 07:59 Critical Care:. rn Disposition Summary: 11/11/22 08:02 Transfer Ordered Transfer Location: Other Acute Care Facility rn Reason: Higher level of care rn Condition: Stable rn Problem: new rn Symptoms: are unchanged rn Accepting Physician: (11/11/22 13:09) staci Diagnosis - Anemia, unspecified rn - Dyspnea, unspecified rn Forms: - Medication Reconciliation Form rn - SBAR form corporate development intern time excluding procedures: 07:59 Critical care time: Bedside Care: 35 minutes, Consultation: 5 minutes. Total time: 40 rn minutes Signatures: Dispatcher [employer] EDAlbania Seals, RN Theodore Arana MD MD rn Blanchard, Shelby, RN RN ss Slawson, Ashby, RN RN as6 Marlo Pizano RN RN ll3 Manuel Trejo MD MD bs3 Marielle Hernandez RN RN pf1 Corrections: (The following items were deleted from the chart) 13:09 08:02 Dr. casillas ss
[2022-11-11] MEDS ORDERED: FENTANYL CITR 100 MCG/2 ML IV ONE (08:05)
[2022-11-11] MEDS ORDERED: HYDROCODONE/APAP 5/325 MG TAB ONE (08:28)
[2022-11-11 08:38] LABS: Protime INR 0.95
[2022-11-11] MEDS ORDERED: ROPINIROLE HCL 1 MG TAB PO ONE (09:00)
[2022-11-11] MEDS ORDERED: PANTOPRAZOLE 40 MG INJ ONE (09:16)
[2022-11-11] MEDS ORDERED: NA CHLORIDE 0.9% 250 ML ONE ×2 (09:30→11:57)
[2022-11-11 10:07] LABS: SARS-CoV-2 Antigen Rapid Res Negative (Negative)
--- NOTE | 2022-11-12 19:53 | RAD REPORT ---
EXAM DESCRIPTION: RAD - Chest Single View - 11/11/2022 5:11 am CLINICAL HISTORY: CHEST PAIN COMPARISON: 10/20/2022. TECHNIQUE: XR CHEST 1 VIEW 11/11/2022 4:48 AM CDT FINDINGS: The heart is borderline in size. There is mild interstitial prominence throughout both chuy gs. There is no pleural effusion. There is no pneumothorax. There are no acute osseous findings. IMPRESSION: No change. Electronically signed by: Maurilio Morrissey MD 11/11/2022 6:08 AM CDT Due to temporary technical issues with the PACS/Fluency reporting system, reports are being signed by the in house radiologists without review as a courtesy to insure prompt reporting. The interpreting radiologist is fully responsible for the content of the report.
--- NOTE | 2022-11-13 12:09 | EKG ---
Test Date: 2022-11-11 Test Time: 04:49:22 [place]cock Tester: RUSTY MEASUREMENT RESULTS: Intervals: Rate: 94 ND: 126 QRSD: 78 QT: 352 QTc: 440 [place]: P: 63 ND: 126 QRS: 59 T: 63 INTERPRETIVE STATEMENTS: Normal sinus rhythm Normal ECG Compared to ECG 10/20/2022 00:01:50 Atrial premature complex(es) no longer present ST (T wave) deviation no longer present Electronically Signed On 11-13-22 12:01:16 CDT by Adam Lynch
== END 2022-11-11 13:09 ==
LOC: ER 04:18
DX: D64.9 Anemia, unspecified (principal); R06.00 Dyspnea, unspecified; F17.210 Nicotine dependence, cigarettes, uncomplicated; E11.9 Type 2 diabetes mellitus without complications; I10 Essential (primary) hypertension; I50.9 Heart failure, unspecified; Z88.0 Allergy status to penicillin; Z20.822 Contact with and (suspected) exposure to COVID-19; Z95.818 Presence of other cardiac implants and grafts
CPT/HCPCS: 93005; 85025; 36415; 86900; 86850; 85610; 86901; 85730; 86920; 84484; 80053; 83880; 71045; 36430; 96374; 99285; 87811; C9113 ×3; P9016 ×2; J7050 ×4

== ENCOUNTER 2022-12-29 09:52 | Inpatient (IN) | payer OTHER ==
--- OUTSIDE RECORDS SUMMARY | 2022-12-29 09:59 | XMS REPORT | Continuity of Care Document ---
:1950 Author Organization [facility] t Address [address] [place] [address] [place] [address] [id number] Care Team Providers Name Role Phone ARIADNE SHEIKH Primary Care Physician Unavailable CLARA WEINSTEIN Attending Clinician Unavailable CONY RIVERA Attending Clinician Unavailable Ariadne Sheikh Attending Clinician Unavailable Manny Grey Attending Clinician Unavailable JESUS VICTOR Attending Clinician Unavailable JUDIE CERVANTES Attending Clinician Unavailable SADIQ HICKMAN Attending Clinician Unavailable JOSE PAIGE Attending Clinician Unavailable SIENNA WILSON Attending Clinician Unavailable Jonathon Valenzuela Attending Clinician Unavailable Rayne Ghosh Attending Clinician Unavailable UNKNOWN, ATTENDING Attending Clinician Unavailable Doctor Unassigned, [place] Attending Clinician Unavailable Vonda Bell Attending Clinician Unavailable ANDREA LOPES Attending Clinician Unavailable Andrea Lopes DO Attending Clinician Umair Bailey APN Attending Clinician UMAIR BAILEY Attending Clinician Unavailable GRECIA ESPINOSA Attending Clinician Unavailable CONY RIVERA Admitting Clinician Unavailable JUDIE CERVANTES Admitting Clinician Unavailable Physician, No Primary or Family Admitting Clinician UnavailANYI Barnes Admitting Clinician Unavailable SIENNA WILSON Admitting Clinician Unavailable Jonathon Valenzuela Admitting Clinician Unavailable RAYNE GHOSH Admitting Clinician Unavailable Vonda Bell Admitting Clinician Unavailable Payers Payer Name Policy Type Policy Number Effective Date Expiration Date S al WELLMED MEDICARE [id number] 2021 00:00:00 MEDICAID [id number] 2022 AMERIGROUP 00:00:00 C WELLMED [id number] 2021 00:00:00 WELLMED/UHC DUAL [id number] 2021 COMP HMO D SNP 00:00:00 AMERIGROUP OF [id number] 2014 [place] 00:[place]:00 HE[facility] SYSTEM MEDICARE C1 [id number] Common ADVANTAGE WELLMED Spirit [facility] MEDICARE C1 [id number] Common ADVANTAGE WELLMED [facility] MEDICARE C1 [id number] Common ADVANTAGE WELLMED [facility] AMERIVANTAGE [id number] 2016 2020 00:00:00 00:00:00 Problems Condition Condition Condition Status Onset Resolution Last Treating Co mments Source Name Details Category Date Date Treatment Clinician Date Spinal Spinal Disease Active Univers stenosis, stenosis, 5-10 ity of lumbar lumbar 00:00: [place] region, region, 00 Medical without without Branch neurogenic neurogenic claudicati claudicati on on Peripheral Peripheral Problem C ommon vascular vascular Spirit disease disease - [facility] Hyperlipid Hyperlipid Problem C ommon emia emia Spirit - [facility] 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 - CHI diabetes diabetic St mellitus pol[facility]rop [facility] Hypertensi Hypertensi Problem C ommon ve heart ve heart Spirit disease disease - CHI with with St congestive congestive Yolis kes heart heart Medical failure failure Center Chronic Chronic Problem Common obstructiv obstructiv Sp lex e e - CHI pulmonary pulmonary [facility] disease disease [facility] (COPD[facility] Medical [place] Restless Restless Problem Commo n legs leg Spirit syndrome syndrome - [facility] [id number] 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 - [facility] with other skin [facility] complicati [facility] [id number] Fungal Problem Common toenail Spirit infection - [facility] [id number] 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 - [facility] Allergies, Adverse Reactions, Alerts Allergy Allergy Status Severity Reaction(s) Onset Inactive Treating Comm ents Source Name Type Date Date Clinician PENICILL Allergy Active Low Rash [facility] 6-10 [facility] 00:[facility] Medical [facility] Center Penicill DA Active U HIVES 2021-06 [facility] ins 1-10 Clear 00:00: [place] 00 [facility] bee DA Active SV HIVES 2021-06 [facility] venom 1-10 Clear protein 00:00: [place] [facility] Penicill DA Active U HIVES 2021-06 [facility] ins 1-08 Clear 00:00: Jordan 00 [facility] PENICILL Drug Active ITCHING Univers INS Class 7-16 ity of 00:00: [place] [facility] Penicill Propensi Active Itching Unive rs ins ty to 7-16 ity of adverse 00:00: [place] reaction 00 [facility] Penicill Propensi Active Itching Unive rs ins ty to 7-16 ity of adverse 00:00: [place] reaction 00 [facility] bee DA Active SV HIVES [facility] venom 6-27 Clear protein 00:00: [place] (honey 00 [facility] Count includes the [facility] No Known DA Active U 2020-06 [facility] Allergie 1-22 Clear s 00:00: [place] 00 [facility] NO KNOWN Drug Active Univers ALLERGIE Class ity of S [facility] Social History Social Habit Start Date Stop Date Quantity Comments Source History of Current Smoker Common Spi rit - Tobacco Use [facility] Sex Assigned At Common Sp lex - [facility] Exposure to 2021-12-08 2021-12-18 Not sure University SARS-CoV-2 00:00:00 03:38:00 [facility] (event) Branch Alcohol intake 2021-12-18 2021-12-18 0 /d University of 00:00:00 00:00:00 [facility] Smoking Status Start Date Stop Date Source Current Smoker 2022-04-13 00:00:00 Common Spiri t - [facility] Occasional tobacco smoker 2016-08-15 00:00:00 Un iversity of [facility] Medications Ordered Filled Start Stop Current Ordering Indication Dosage Frequency Signature Comments Components Source Medication Medication Date Date Medication? Clinician (SIG) Name Name Pregabalin Pregabalin No 1{capsu TID Pregabalin 50 MG 50 MG 8- le} 50 MG 00:00: 00 diazePAM 2021- No 5mg 5 mg, Univers (VALIUM) 12-18 Oral, ity of tablet 5 mg 09:00: 09:01 [place] dose, On Medical [place] 12/18/21 at 0415, ARIES simvastatin Yes 40mg Take 40 mg Univers 40 mg 17 by mouth ity of tablet 04:10: at [place] [address] bedtime. Medical Branch simvastatin Yes 40mg Take 40 mg Univers 40 mg -17 by mouth ity of tablet 04:10: at [place] [address] bedtime. Medical Branch FENTanyl PF No 50ug 50 mcg, Un william (SUBLIMAZE 12-18 Slow IV ity o f (PF)) 04:00: 03:12 Push, [place] injection 00 :00 ONCE, 1 Medical 50 mcg dose, On Branch 12/17/21 at 2300, STAT NaCl 0.9% No 500mL at 999 [facility] ers (NS) bolus 12-18 mL/hr, 500 it [...] Branch 12/17/21 at 2215, ARIES traMADoL 50 2022-0 Yes 4647 50mg Take 1 Univ ers mg tablet 7-16 tablet by ity o f 00:00: mouth [place] 00 every 6 Medical (six) Branch hours as needed for Pain (scale 4-6). Indication s: acute pain traMADoL 50 0 2021- No 4647 50mg Take 1 Uni vers mg tablet 7-16 07-17 tablet by ity of 00:00: 00:00 [...] by mouth ity of tablet 00:00: daily. [place] 00 Medical Branch metoprolol Yes TAKE 1 Unive rs tartrate 2-22 TABLET BY ity of 100 mg 00:00: MOUTH [place] tablet 00 TWICE A Medical DAY Branch predniSONE Yes TAKE 1 Unive rs 20 mg 2-22 TABLET BY ity of tablet 00:00: MOUTH [place] 00 [id number] Medical YS,1 TAB Branch [id number] ,1/2 TAB [id number] ALPRAZolam Yes TAKE 1 Unive rs 0.5 [...] TABLET BY ity of tablet 00:00: MOUTH [id number] Medical YS,1 TAB Branch [id number] ,1/2 TAB [id number] simvastatin Yes TAKE 1 Univ ers 40 mg 2-22 TABLET BY ity of tablet 00:00: MOUTH AT [place] BEDTIME Medical Branch rOPINIRole Yes TAKE 1 Unive rs 4 mg tablet 2-22 TABLET BY ity of 00:00: MOUTH AT [place] BEDTIME Medical Branch traMADOL 50 Yes TAKE [...] by mouth ity of tablet 00:00: daily. [place] Medical Branch metoprolol Yes TAKE 1 Unive rs tartrate 2-22 TABLET BY ity of 100 mg 00:00: MOUTH tablet 00 TWICE A Medical DAY Branch predniSONE Yes TAKE 1 Unive rs 20 mg 2-22 TABLET BY ity of tablet 00:00: MOUTH [id number] Medical YS,1 TAB Branch [id number] ,1/2 TAB [id number] cilostazol 2021- No TAKE 1 Univ ers 100 mg 2-22 12-18 TABLET BY ity of tablet 00:00: 00:00 MOUTH [place] 00 :00 TWICE A Medical DAY Branch simvastatin 2021- No TAKE 1 Uni vers 40 mg 07-26 TABLET BY ity of tablet 00:00: 00:00 MOUTH AT [place] 00 :00 BEDTIME Medical Branch rOPINIRole 2021- No TAKE 1 Univ ers 4 mg tablet 07-26 TABLET BY it y of 00:00: 00:00 MOUTH AT [place] 00 :00 BEDTIME Medical Branch traMADOL 50 2021- No TAKE 1 Uni vers mg tablet 07-26 TABLET BY ity of 00:00: 00:00 MOUTH [place] 00 :00 TWICE A Medical DAY Branch NEEDED FOR PAIN clopidogrel Yes 75mg Take 75 mg Univers 75 mg 2-21 by mouth ity of tablet 00:00: daily. [place] Medical Branch metFORMIN Yes TAKE 1 Univer s 1,000 mg 2-21 TABLET BY ity of tablet 00:00: MOUTH [place] [address] TWICE A Medical DAY Branch clopidogrel Yes 75mg Take 75 mg Univers 75 mg 2-21 by mouth ity of tablet 00:00: daily. [place] Medical Branch metFORMIN Yes TAKE 1 Univer s 1,000 mg 2-21 TABLET BY ity of tablet 00:00: MOUTH [place] [address] TWICE A Medical DAY Branch clopidogrel Yes 75mg Take 75 mg Univers 75 mg 2-21 by mouth ity of tablet 00:00: daily. [place] [facility] metFORMIN Yes TAKE 1 Univer s 1,000 mg 2-21 TABLET BY ity of tablet 00:00: MOUTH [place] [address] TWICE A Medical DAY Branch Symbicort Symbicort No Symbicort 160-4.5 160-4.5 160-4.5 [...] 75 MG 75 MG Bisulfate 75 MG Flovent HFA Flovent HFA 2021- No [...] Name Observation Time Observation Value Comments Source HEIGHT 2022-11-11 15:03:00 149.9 cm WEIGHT 2022-11-11 15:03:00 49.442 kg HEIGHT 2022-11-11 15:03:00 149.9 cm WEIGHT 2022-11-11 15:03:00 49.442 kg height 2022-01-12 08:20:00 56 [in_i] [facility] weight 2022-01-12 08:20:00 107.2 [lb_av] [facility] temperature 2022-01-12 08:20:00 97.2 [degF] [facility] bmi 2022-01-12 08:20:00 24.03 kg/m2 [facility] oximetry 2022-01-12 08:20:00 97 % [facility] respiratory rate 2022-01-12 08:20:00 18 /min Comm on [facility] blood pressure 2022-01-12 08:20:00 146 mm[Hg] Common [facility] systolic [facility] blood pressure 2022-01-12 08:20:00 62 mm[Hg] [facility] diastolic [facility] Body temperature 2021-12-18 08:45:42 37.44 [facility]anna [facility] [place] Systolic blood 2021-12-18 08:39:00 143 mm[Hg] Univer sity of [facility] Diastolic blood 2021-12-18 08:39:00 90 mm[Hg] Unive rsity of [facility] Heart rate 2021-12-18 08:39:00 114 /min [facility] Respiratory rate 2021-12-18 08:39:00 20 /min [facility] [place] Body height 2021-12-18 08:39:[address] [facility] Body weight 2021-12-18 08:39:[address] [facility] BMI 2021-12-18 08:39:00 21.81 kg/m2 [facility] Oxygen saturation in 2021-12-18 08:39:00 93 /min [facility] Arterial blood by [facility] Pulse oximetry Branch Systolic blood 2021-12-18 03:00:00 140 mm[Hg] Univer sity of [facility] Diastolic blood 2021-12-18 03:00:00 90 mm[Hg] Unive rsity of [facility] Heart rate 2021-12-18 03:00:00 99 /min [facility] Respiratory rate 2021-12-18 03:00:00 26 /min [facility] Oxygen saturation in 2021-12-18 03:00:00 98 /min [facility] Arterial blood by [facility] Pulse oximetry Branch Body temperature 2021-12-18 02:23:00 37.5 Giovanna [facility] Body height 2021-12-18 02:23:00 149.9 cm [facility] Body weight 2021-12-18 02:23:00 48.988 kg [facility] BMI 2021-12-18 02:23:00 21.81 kg/m2 [facility] height 2021-10-06 09:40:00 56 [in_i] [facility] weight 2021-10-06 09:40:00 108.4 [lb_av] [facility] temperature 2021-10-06 09:40:00 97.9 [degF] [facility] bmi 2021-10-06 09:40:00 24.3 kg/m2 [facility] oximetry 2021-10-06 09:40:00 94 % [facility] respiratory rate 2021-10-06 09:40:00 16 /min Comm on [facility] blood pressure 2021-10-06 09:40:00 139 mm[Hg] Common [facility] - systolic [facility] blood pressure 2021-10-06 09:40:00 70 mm[Hg] Common [facility] - diastolic [facility] height 2021-04-19 09:00:00 56 [in_i] Common [facility] weight 2021-04-19 09:00:00 113.5 [lb_av] [facility] temperature 2021-04-19 09:00:00 97.5 [degF] [facility] bmi 2021-04-19 09:00:00 25.44 kg/m2 [facility] oximetry 2021-04-19 09:00:00 92 % [facility] blood pressure 2021-04-19 09:00:00 128 mm[Hg] [facility] - systolic [facility] blood pressure 2021-04-19 09:00:00 86 mm[Hg] [facility] - diastolic [facility] height 2021-01-27 13:20:00 56 [in_i] [facility] weight 2021-01-27 13:20:00 117 [lb_av] [facility] temperature 2021-01-27 13:20:00 97.4 [degF] [facility] bmi 2021-01-27 13:20:00 26.23 kg/m2 [facility] oximetry 2021-01-27 13:20:00 93 % [facility] respiratory rate 2021-01-27 13:20:00 18 /min Comm on [facility] blood pressure 2021-01-27 13:20:00 117 mm[Hg] [facility] systolic [facility] blood pressure 2021-01-27 13:20:00 52 mm[Hg] [facility] diastolic [facility] Procedures Procedure Date / Time Performing Clinician Source Performed [id number] 2022-06-12 00:00:00 KARZE [facility] [id number] 2022-06-12 00:00:00 KARZE [facility] [id number] 2022-06-12 00:00:00 KARZE [facility] NON-UTMB ORDERS 2022-05-30 06:01:00 Doctor Unassigned, No Univer joana [facility] [id number] 2022-04-14 00:00:00 CHEZU [facility] [id number] 2022-04-14 00:00:00 CHEZU [facility] [id number] 2022-04-14 00:00:00 CHEZU [facility] [id number] 2022-04-14 00:00:00 CHEZU [facility] [id number] 2022-04-14 00:00:00 CHEZU [facility] [id number] 2022-04-14 00:00:00 CHEZU [facility] [id number] 2022-04-14 00:00:00 CHEZU [facility] [id number] 2022-04-14 00:00:00 CHEZU [facility] [id number] 2022-04-12 00:00:00 THERESEA RONALD [facility] CONSENT/REFUSAL FOR 2021-12-18 08:36:35 Doctor Unassigned, [facility] COMP. METABOLIC PANEL 2021-12-18 03:08:00 Umair Bailey [facility] ([id number]) Medical [place] CBC WITH DIFF 2021-12-18 03:08:00 Umair Bailey [facility] [place] [facility] COVID-19 (ID NOW RAPID 2021-12-18 03:08:00 Umair Bailey [facility] TESTING) Medical [place] URINE DRUG (IMMUNOASSAY) 2021-12-18 02:39:00 [facility] Medical [facility] SCREEN URINALYSIS 2021-12-18 02:39:00 Umair Bailey [facility] [place] [facility] NOTICE OF PRIVACY 2021-12-18 02:08:20 Doctor Unassigned, No [facility] PRACTICES Name [facility] CONSENT/REFUSAL FOR 2021-12-18 02:07:28 Doctor Unassigned, No [facility] Name [facility] Encounters Start End Encounter Admission Attending Care Care Encounter Source Date/Time Date/Time Type Type Clinicians Facility Department ID 2022-11-14 Inpatient ER CORINNA IBRAHIMA [facility] [id number] [facility] 07:51:04 CLARA 2022-11-12 Inpatient ER CONY RIVERA [facility] [id number] [facility] 16:33:55 2022-07-11 Outpatient [facility] [id number] [place] 13:29:[id number] [facility] 2022-04-12 Outpatient Shiloh, STLMLC STLMLC [id number] Common 10:10:01 Ariadne [facility] 2022-01-04 Outpatient [place], STLMLC STLMLC [id number] Common 07:52:00 Ariadne [facility] 2021-11-30 Inpatient EL Que, RONALDCL HCACL [id number] [facility] 13:00:00 Manny [id number] [facility] 2021-10-04 Outpatient [place], STLMLC STLC [id number] Common 09:48:03 Ariadne [facility] 2021-07-15 Outpatient [place], STLMLC STLC [id number] Common 08:00:02 Ariadne [facility] 2021-06-29 Outpatient [place], STLMLC STLC [id number] Common 13:43:19 Ariadne [facility] 2022-11-11 2022-11-16 Inpatient ER JESUS VICTOR [facility] [id number] [facility] 14:25:00 18:38:00 2022-11-14 2022-11-14 Inpatient ER CONY RIVERA [facility] [id number] [facility] 12:46:18 00:00:00 2022-07-03 2022-07-03 Outpatient COH COH PIJFKYP QAQ COH 00:00:00 00:00:00 [id number] 2022-06-27 2022-07-02 Inpatient E MARYLOU [facility] [id number] [facility] 21:14:00 12:20:00 SADIQ 2022-06-30 2022-06-30 Outpatient MAYILVAEDUARDOA [facility] [id number] [place] 08:30:00 08:30:00 JOSE Espana 2022-06-27 2022-06-27 Outpatient KATIE [facility] MARI [id number] [facility] 18:16:00 23:59:00 SIENNA 2022-06-10 2022-06-12 Inpatient EM Nicolas, HCACL INTE.02 [id number] [facility] 18:52:00 17:47:00 Jonathon 95 [facility] 2022-06-06 2022-06-06 Outpatient RONALD HouseCL DAYS [id number] [facility] 08:00:00 08:01:00 Rayne 92 [facility] 2022-05-31 2022-05-31 Outpatient R UNKNOWN, [facility] [id number] Univers 10:20:30 23:59:00 ATTENDING ity [facility] 2022-05-30 2022-05-30 Orders Doctor NATE [id number] Univers 00:00:00 00:00:00 Only Unassigned, LUPILLO [id number] ity [facility] [id number] Je [id number] [address] 2022-05-23 2022-05-23 (TEL) STLC STLC [id number] Co mmon 00:00:00 00:00:00 Spirit - CHI [facility] 2022-04-14 2022-04-15 Inpatient Vonda Salas HCACL INTE.02 [id number] [facility] 08:50:00 14:05:00 05 [facility] 2022-01-12 2022-01-12 OFFICE STLMLC STLC [id number] Co mmon 00:00:00 00:00:00 VISIT [facility] PT - CHI LEVEL 4 [facility] 2022-01-04 2022-01-04 (TEL) STLC STLC [id number] Co mmon 00:00:00 00:00:00 Spirit - [facility] 2021-12-18 2021-12-18 Emergency X [facility] ERT [id number] Univers 03:37:00 04:23:00 ANDREA loving [facility] 2021-12-18 2021-12-18 Emergency [facility] [id number] Univers 03:37:00 04:23:00 Andrea SANDHU [id number] i ty of [place] 4.2.7.2.686 [facility] [id number] [place] [address] Branch 2021-12-17 2021-12-17 Emergency [facility] [id number] Univers 21:28:00 23:30:00 [id number] 4.2.7.2.686 [facility] [id number] [place] [id number] Branch 2021-12-17 2021-12-17 Emergency X [facility] ERT [id number] Univers 21:28:00 23:30:00 UMAIR ity [facility] 2021-11-30 2021-11-30 Outpatient MELODY Champion OUTD [id number] [facility] 05:11:00 05:11:00 Manny 13 [facility] 2021-11-27 2021-11-27 (TEL) STLMLC STLMLC [id number] Co mmon 00:00:00 00:00:00 Spirit - [facility] 2021-10-06 2021-10-06 OFFICE STLMLC STLMLC [id number] Co mmon 00:00:00 00:00:00 VISIT Spirit ESTAB PT - CHI LEVEL 4 [facility] 2021-04-26 2021-04-26 Inpatient RONALD HouseCL DAYS [id number] [facility] 05:15:00 05:15:00 Rayne 37 [facility] 2021-04-19 2021-04-19 OFFICE STLMLC STLMLC [id number] Co mmon 00:00:00 00:00:00 VISIT Spirit ESTAB PT - CHI LEVEL 4 [facility] 2021-04-11 2021-04-11 (TEL) STLMLC STLMLC [id number] Co mmon 00:00:00 00:00:00 Spirit - [facility] 2021-01-27 2021-01-27 OFFICE STLMLC STLMLC [id number] Co mmon 00:00:00 00:00:00 VISIT PATRICIA [facility] it PT LEVEL 4 - CHI [facility] 2020-01-23 2020-01-23 Outpatient GRECIA FOWLER [facility] [id number] Univers 13:00:00 13:00:00 ity [facility] 2019-12-04 2019-12-04 Orders Doctor NATE [id number] 00:00:00 00:00:00 Only Unassigned, LUPILLO 350.1.13.10 [place] [facility] 4.2.7.2.686 [id number] Results Test Description Test Time Test Comments Results Result Comments Source POCT-GLUCOSE METER 2022-11-16 16:53:40 Test Item Value Reference Range Interpretation Comme nts POC-GLUCOSE METER (BEAKER) 128 mg/dL 70-110 H : [facility] [address] [facility] (test code = 1538) [facility], [address]: Roll Cutting Operator/Techni gareth ID = [id number] for Bertrand (c ontract), Autumn POCT-GLUCOSE [id number] 12:28:18 Test Item Value Reference Range Interpretation Comments POC-GLUCOSE METER 108 mg/dL 70-110 : TESTED A T [facility] [address] (BEAKER) ([facility], = 1538) [address]: Roll Cutting Operator/Techni gareth ID = [id number] for Bertrand (contract), LaT onya POCT-GLUCOSE [id number] 09:35:09 Test Item Value Reference Range Interpretation Comments POC-GLUCOSE METER 130 mg/dL 70-110 H : TESTED A T [facility] 6720 (BEAKER) (test code = LIBAN [place] [facility], 1538) [address]: Roll Cutting Operator/Techni gareth ID = [id number] for AN GISELE NUPUR BASIC METABOLIC [id number] 05:06:54 Test Item Value Reference Range Interpretation Comments SODIUM (BEAKER) 135 meq/L 136-145 L (test code = 381) POTASSIUM 4.0 meq/L 3.5-5.1 (BEAKER) (test code = 379) CHLORIDE (BEAKER) 106 meq/L 98-107 (test code = 382) CO2 (BEAKER) 22 meq/L 22-29 (test code = 355) BLOOD UREA 8 mg/dL 7-21 NITROGEN (BEAKER) (test code = 354) CREATININE 1.03 mg/dL 0.57-1.25 (BEAKER) (test code = 358) GLUCOSE RANDOM 128 mg/dL 70-105 H (BEAKER) (test code = 652) CALCIUM (BEAKER) 8.5 mg/dL 8.4-10.2 (test code = 697) EGFR (BEAKER) 57 Interpretatio n of eGFR (test code = mL/min/1.73 values Stage De scription 1092) sq m Result G1 Raquel l or high >=90 G2 Mildly decreased 60-89 G3a Mildl y to moderately 45-5 9 G3b Moderately to s everely 30-44 G4 Severl y decreased 15-29 G5 Kidney failure <15Reported eGF R is based on the CKD-EPI 2020 equation that d oes not use a race coefficientEsti mated GFR is not as accur ate as Creatinine Elisa abad in predicting glom erular filtration rate . Estimated GFR is not appl icable for dialysis patien ts Roll Cutting Operator ID - [id number] (HEMOGRAM ONLY)2022-11-16 04:31:03 Test Item Value Reference Range Interpretation Comments WHITE BLOOD CELL COUNT (BEAKER) 8.4 K/ L 3.5-10.5 (test code = 775) RED BLOOD CELL COUNT (BEAKER) 3.60 M/ L 3.93-5.22 L (test code = 761) HEMOGLOBIN (BEAKER) (test code = 8.7 GM/DL 11.2-15.7 L 410) HEMATOCRIT (BEAKER) (test code = 27.6 % 34.1-44.9 L 411) MEAN CORPUSCULAR VOLUME (BEAKER) 77 fL 79-95 L (test code = 753) MEAN CORPUSCULAR HEMOGLOBIN 24.2 pg 25.6-32.2 L (BEAKER) (test code = 751) MEAN CORPUSCULAR HEMOGLOBIN CONC 31.5 GM/DL 32.2-35.5 L (BEAKER) (test code = 752) RED CELL DISTRIBUTION WIDTH 21.8 % 11.7-14.4 H (BEAKER) (test code = 412) PLATELET COUNT (BEAKER) (test 320 K/CU MM 150-450 code = 756) MEAN PLATELET VOLUME (BEAKER) 8.6 fL 9.4-12.3 L (test code = 754) NUCLEATED RED BLOOD CELLS 0 /100 WBC 0-0 (BEAKER) (test code = 413) POCT-GLUCOSE [id number] 02:48:02 Test Item Value Reference Range Interpretation Comments POC-GLUCOSE METER 154 mg/dL 70-110 H : TESTED A T [facility] 6720 (BEAKER) (test code = LIBAN Salamanca [facility], 1538) [address]: Roll Cutting Operator/Techni gareth ID = [id number] for RADHA BELL RA POCT-GLUCOSE [id number] 17:40:20 Test Item Value Reference Range Interpretation Comments POC-GLUCOSE METER 149 mg/dL 70-110 H : TESTED A T [facility] 6720 (BEAKER) (test code [facility], = 1538) 088[address]: Roll Cutting Operator/Techni gareth ID = [id number] for Bertrand (contract), LaT onya POCT-GLUCOSE [id number] 12:02:06 Test Item Value Reference Range Interpretation Comments POC-GLUCOSE METER 71 mg/dL 70-110 : TESTED A T [facility] 6720 (BEAKER) (test code [facility], = 1538) 078[address]: Roll Cutting Operator/Techni gareth ID = [id number] for Bertrand (contract), LaT onya BASIC METABOLIC [id number] 09:02:04 Test Item Value Reference Range Interpretation Comments SODIUM (BEAKER) 136 meq/L 136-145 (test code = 381) POTASSIUM 4.8 meq/L 3.5-5.1 (BEAKER) (test code = 379) CHLORIDE (BEAKER) 108 meq/L 98-107 H (test code = 382) CO2 (BEAKER) 22 meq/L 22-29 (test code = 355) BLOOD UREA 12 mg/dL 7-21 NITROGEN (BEAKER) (test code = 354) CREATININE 1.30 mg/dL 0.57-1.25 H (BEAKER) (test code = 358) GLUCOSE RANDOM 141 mg/dL 70-105 H (BEAKER) (test code = 652) CALCIUM (BEAKER) 8.5 mg/dL 8.4-10.2 (test code = 697) EGFR (BEAKER) 43 Interpretatio n of eGFR (test code = mL/min/1.73 values Stage De scription 1092) sq m Result G1 Raquel l or high >=90 G2 Mildly decreased 60-89 G3a Mildl y to moderately 45-5 9 G3b Moderately to s everely 30-44 G4 Severl y decreased 15-29 G5 Kidney failure <15Reported eGF R is based on the CKD-EPI 2020 equation that d oes not use a race coefficientEsti mated GFR is not as accur ate as Creatinine Elisa abad in predicting glom erular filtration rate . Estimated GFR is not appl icable for dialysis patien ts Roll Cutting Operator ID - EDCBC (HEMOGRAM ONLY)2022-11-15 08:28:53 Test Item Value Reference Range Interpretation Comments WHITE BLOOD CELL COUNT (BEAKER) 9.6 K/ L 3.5-10.5 (test code = 775) RED BLOOD CELL COUNT (BEAKER) 3.22 M/ L 3.93-5.22 L (test code = 761) HEMOGLOBIN (BEAKER) (test code = 8.0 GM/DL 11.2-15.7 L 410) HEMATOCRIT (BEAKER) (test code = 25.8 % 34.1-44.9 L 411) MEAN CORPUSCULAR VOLUME (BEAKER) 80 fL 79-95 (test code = 753) MEAN CORPUSCULAR HEMOGLOBIN 24.8 pg 25.6-32.2 L (BEAKER) (test code = 751) MEAN CORPUSCULAR HEMOGLOBIN CONC 31.0 GM/DL 32.2-35.5 L (BEAKER) (test code = 752) RED CELL DISTRIBUTION WIDTH 21.6 % 11.7-14.4 H (BEAKER) (test code = 412) PLATELET COUNT (BEAKER) (test 260 K/CU MM 150-450 code = 756) MEAN PLATELET VOLUME (BEAKER) 8.5 fL 9.4-12.3 L (test code = 754) NUCLEATED RED BLOOD CELLS 0 /100 WBC 0-0 (BEAKER) (test code = 413) POCT-GLUCOSE [id number] 07:33:32 Test Item Value Reference Range Interpretation Comments POC-GLUCOSE METER 75 mg/dL 70-110 : TESTED A T [facility] 6720 (BEAKER) (test code = [facility] [place] [place], 1538) 887[address]: Roll Cutting Operator/Techni gareth ID = [id number] for Hari Bustamante POCT-GLUCOSE [id number] 05:36:55 Test Item Value Reference Range Interpretation Comments POC-GLUCOSE METER 54 mg/dL 70-110 L : TESTED A T [facility] 6720 (BEAKER) (test code = LIBAN [facility]amanca [facility], 1538) 53032: Roll Cutting Operator/Techni gareth ID = [id number] for Shadia Beltrán POCT-GLUCOSE [id number] 00:31:32 Test Item Value Reference Range Interpretation Comments POC-GLUCOSE METER 73 mg/dL 70-110 : TESTED A T [facility] 6720 (DONY) (test code = LIBAN Salamanca [facility], 1538) 26321: Roll Cutting Operator/Techni gareth ID = [id number] for Luciod [place] jolleyen POCT-GLUCOSE [id number] 16:54:46 Test Item Value Reference Range Interpretation Comments POC-GLUCOSE METER 89 mg/dL 70-110 : TESTED A T [facility] 6720 ([facility] (test code [facility], = 1538) 967[address]: Roll Cutting Operator/Techni gareth ID = [id number] for Thurston (contract), LaT onya CTA AAA AND [id number] 15:01:17 [facility] CENTERName: MANJIT NESS : 1950 Sex: FCTAAAA AND RUNOFFCTA ABDOMEN AND PELVIS AND BILATERAL LOWER EXTREMITY RUNOFF:HISTORY: Claudication or leg ischemia, prior revascCOMPARISON: No previous relevant images are available for comparisonTECHNIQUE: CT angiography of the abdomen and pelvis and bilateral lowerextremities without and with IV contrast. The examination was performedaccording to departmental dose-optimization program which includesautomated exposure control, adjustment of the mA and/or kV according topatient size and/or use of iterative reconstruction technique.MIP reconstructions were performed.FINDINGS:VASCULAR FINDINGS:Atherosclerotic disease: SevereAbdominal Aorta: Moderate narrowing of the abdominal aorta between thetwo left renal arteries. 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,with normal filling of the distal portion and its branchesSMA: PatentIMA: Proximal portion is not visualized, likely occluded, distalportion fills via collateral vesselsRight Renal artery: One right renal artery with moderate narrowingproximallyLeft Renal artery: 2 left renal arteries was which are diminutive,narrowingat the origin of the upper left renal arteryRight Common Iliac artery: Stented, patentRight InternalIliac artery: Severe narrowing proximally withpoststenotic ectasia up to 1 cm in diameterRight External Iliac artery: Diffusely mildly narrowedLeft Common Iliac artery: Stented and mild narrowing proximally fromplaque ingrowth through the stent and moderately narrowed distallyLeft Internal Iliac artery: Occluded proximal portion, patent distalportionLeft External Iliac artery: Diffusely mild to moderately narrowedRIGHT LOWER EXTREMITY RUN-OFF:Right DRAWER MAKER: 2 small saccular outpouchings from the common femoral arterymeasuring 5 and 3 mm. Multifocal ztlp-js-kikbpjwu narrowing.Right SFA: Occluded, minimal reconstitution of the distalmost portionRight Profunda Femoris artery: PatentRight Popliteal artery: Reconstitutes via collateral vessels and hasmultifocal mild to moderate narrowing proximally and patent distallyRight Anterior Tibial artery: PatentRight Tibioperoneal Trunk: PatentRight Peroneal artery: Patent, with normal tapering at the level of theankle joint.Right Posterior Tibial artery: PatentRight Dorsalis Pedis artery: PatentRight Plantar Arch: PatentLEFT LOWER EXTREMITY RUN-OFF:Left DRAWER MAKER: Stented and occludedLeft SFA: Stented and occludedLeft Profunda Femoris artery: Occluded proximally with reconstitutionshortly after its originLeft Popliteal artery: Stented and occludedLeft Anterior Tibial artery: Early takeoff of the left anterior tibialartery which is diminutive and moderately narrowed proximally andotherwise patentLeft Tibioperoneal Trunk: OccludedLeft Peroneal artery: Poorly opacified, no identifiable flow at theorigin but with grossly normal flow in the mid to distal portionLeftPosterior Tibial artery: Multifocal severe narrowing or occlusion,re-opacification of the midportionand the distal portion (within anonopacified portion in between).Left Dorsalis Pedis artery: Diminutive but patent where visualizedLeft Plantar Arch: Diminutive but patent where visualizedNONVASCULAR FINDINGS:Lower thorax: Coronary artery calcification.Liver: Unremarkable.Gallbladder and bile ducts: Surgically absent gallbladder with mildlydilated bile ducts, likely related to postcholecystectomy state.Spleen: Unremarkable.Pancreas: Unremarkable.Adrenals: Left adrenal hyperplasia without discrete noduleKidneys and ureters: Bilateral simple appearing renal cysts andsubcentimeter renal hypodensities too small to characterize but likelyrepresenting additional cysts, no follow up imaging recommended. Nohydronephrosis. Geographic hypoenhancement of the upper pole of leftkidney, likely related to upperpole renal arterial narrowing. Mildbilateral renal cortical thinningBowel: Colonic diverticulosis without associated colonic wall thickeningor surrounding stranding. Nondilated bowel with no wall thicke jennie. Metallic clip in the stomach along the lesser curvature Bladder: Unremarkable.Reproductive organs: Unremarkable.Lymph nodes: Unremarkable.Peritoneum: Unremarkable.Vessels: As above.Abdominal wall: Unremarkable.Bones and lower extremities: Unremarkable.IMPRESSION:Inflow: Moderate narrowing of themid abdominal aorta.Right lower extremity: Right superficial femoral artery is occludedexcept for the distal most portion, with reconstitution and patentrunoff vessels. 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 Left leg; occluded stent of the left common and superficial femoralarteries and occluded stent of the left popliteal artery andtibioperoneal trunk. Multifocal severe narrowing or occlusion of theleft posterior tibial artery. No identifiable flow withinthe proximalportion of the left peroneal artery with normal flow in the mid todistal portion.Other vascular findings: Occluded or severely narrowed proximal celiacaxis with reconstitution. Proximal IMAis likely occluded as well, withdistal reconstitution. Narrowing at the origin of the upper left renalartery with hypoenhancement of the left upper kidney. Occluded proximalportion of the left profundafemoris artery with reconstitution. Other: Colonic diverticulosis.Occluded vessel findings were relayed to Dr. Rivera at 11/14/2022 3:01 PM.POCT-GLUCOSE [id number] 15:00:50 Test Item Value Reference Range Interpretation Comments POC-GLUCOSE METER 75 mg/dL 70-110 : TESTED A T [facility] 6720 (BEAKER) (test code = LIBAN [facility]amanca [facility], 1538) 10868: Roll Cutting Operator/Techni gareth ID = [id number] for Tyrone Moralez BASIC METABOLIC [id number] 07:07:21 Test Item Value Reference Range Interpretation Comments SODIUM (BEAKER) 135 meq/L 136-145 L (test code = 381) POTASSIUM 3.9 meq/L 3.5-5.1 (BEAKER) (test code = 379) CHLORIDE (BEAKER) 108 meq/L 98-107 H (test code = 382) CO2 (BEAKER) 19 meq/L 22-29 L (test code = 355) BLOOD UREA 21 mg/dL 7-21 NITROGEN (BEAKER) (test code = 354) CREATININE 1.62 mg/dL 0.57-1.25 H (BEAKER) (test code = 358) GLUCOSE RANDOM 105 mg/dL 70-105 (BEAKER) (test code = 652) CALCIUM (BEAKER) 8.2 mg/dL 8.4-10.2 L (test code = 697) EGFR (BEAKER) 33 Interpretatio n of eGFR (test code = mL/min/1.73 values Stage De scription 1092) sq m Result G1 Raquel l or high >=90 G2 Mildly decreased 60-89 G3a Mildl y to moderately 45-5 9 G3b Moderately to s everely 30-44 G4 Severl y decreased 15-29 G5 Kidney failure <15Reported eGF R is based on the CKD-EPI 2020 equation that d oes not use a race coefficientEsti mated GFR is not as accur ate as Creatinine Elisa abad in predicting glom erular filtration rate . Estimated GFR is not appl icable for dialysis patien ts Roll Cutting Operator ID - TERESA WPOCT-GLUCOSE [id number] 06:13:28 Test Item Value Reference Range Interpretation Comments POC-GLUCOSE METER 93 mg/dL 70-110 : TESTED A T [facility] 6720 (BEAKER) (test code = LIBAN [facility]amanca [facility], 1538) 70750: Roll Cutting Operator/Techni gareth ID = [id number] for JE TRISTAN CBC W/PLT COUNT & AUTO [id number] 05:22:29 Test Item Value Reference Range Interpretation Comments WHITE BLOOD CELL COUNT (BEAKER) 11.8 K/ L 3.5-10.5 H (test code = 775) RED BLOOD CELL COUNT (BEAKER) 3.30 M/ L 3.93-5.22 L (test code = 761) HEMOGLOBIN (BEAKER) (test code = 8.1 GM/DL 11.2-15.7 L 410) HEMATOCRIT (BEAKER) (test code = 25.4 % 34.1-44.9 L 411) MEAN CORPUSCULAR VOLUME (BEAKER) 77 fL 79-95 L (test code = 753) MEAN CORPUSCULAR HEMOGLOBIN 24.5 pg 25.6-32.2 L (BEAKER) (test code = 751) MEAN CORPUSCULAR HEMOGLOBIN CONC 31.9 GM/DL 32.2-35.5 L (BEAKER) (test code = 752) RED CELL DISTRIBUTION WIDTH 21.2 % 11.7-14.4 H (BEAKER) (test code = 412) PLATELET COUNT (BEAKER) (test 334 K/CU MM 150-450 code = 756) MEAN PLATELET VOLUME (BEAKER) 8.9 fL 9.4-12.3 L (test code = 754) NUCLEATED RED BLOOD CELLS 0 /100 WBC 0-0 (BEAKER) (test code = 413) NEUTROPHILS RELATIVE PERCENT 76 % (BEAKER) (test code = 429) LYMPHOCYTES RELATIVE PERCENT 16 % (BEAKER) (test code = 430) MONOCYTES RELATIVE PERCENT 7 % (BEAKER) (test code = 431) EOSINOPHILS RELATIVE PERCENT 1 % (BEAKER) (test code = 432) BASOPHILS RELATIVE PERCENT 0 % (BEAKER) (test code = 437) NEUTROPHILS ABSOLUTE COUNT 8.94 K/ L 1.56-6.13 H (BEAKER) (test code = 670) LYMPHOCYTES ABSOLUTE COUNT 1.86 K/ L 1.18-3.74 (BEAKER) (test code = 414) MONOCYTES ABSOLUTE COUNT (BEAKER) 0.77 K/ L 0.24-0.36 H (test code = 415) EOSINOPHILS ABSOLUTE COUNT 0.14 K/ L 0.04-0.36 (BEAKER) (test code = 416) BASOPHILS ABSOLUTE COUNT (BEAKER) 0.05 K/ L 0.01-0.08 (test code = 417) IMMATURE GRANULOCYTES-RELATIVE 0.60 % 0.00-1.00 PERCENT (BEAKER) (test code = 2801) POCT-GLUCOSE [id number] 00:03:38 Test Item Value Reference Range Interpretation Comments POC-GLUCOSE METER 137 mg/dL 70-110 H : TESTED A T [facility] 6720 (BEAKER) (test code = [facility]8) 36553: Roll Cutting Operator/Techni gareth ID = [id number] for TRISTAN DE LEON POCT-GLUCOSE [id number] 12:01:55 Test Item Value Reference Range Interpretation Comments POC-GLUCOSE METER 75 mg/dL 70-110 : TESTED A T [facility] 6720 (BEAKER) (test code = [facility], [facility]8) 72600: Roll Cutting Operator/Techni gareth ID = [id number] for Penny llero, Cheri POCT-GLUCOSE [id number] 08:56:34 Test Item Value Reference Range Interpretation Comments POC-GLUCOSE METER 65 mg/dL 70-110 L : TESTED A T [facility] 6720 (BEAKER) (test code = [facility], [facility]8) 26721: Roll Cutting Operator/Techni gareth ID = [id number] for Penny llero, Cheri POCT-GLUCOSE [id number] 01:55:04 Test Item Value Reference Range Interpretation Comments POC-GLUCOSE METER 109 mg/dL 70-110 : TESTED A T [facility] 6720 (BEAKER) (test code = [facility], [facility]) 85633: Roll Cutting Operator/Techni gareth ID = [id number] for Me ndoza, Ezekielkka POCT-GLUCOSE [id number] 18:50:50 Test Item Value Reference Range Interpretation Comments POC-GLUCOSE METER 93 mg/dL 70-110 : TESTED A T [facility] 6720 (BEAKER) (test code = [facility], 1538) 12382: Roll Cutting Operator/Techni gareth ID = [id number] for Penny llero, Cheri POCT-GLUCOSE [id number] 18:30:48 Test Item Value Reference Range Interpretation Comments POC-GLUCOSE METER 167 mg/dL 70-110 H : TESTED A T [facility] 6720 (BEAKER) (test code = [facility], [facility]) 12820: Roll Cutting Operator/Techni gareth ID = [id number] for Cheri Pisano HIGH SENSITIVITY TROPONIN [id number] 17:53:18 Test Item Value Reference Range Interpretation Comments HIGH SENSITIVITY TROPONIN I (test 10 pg/ml <=17 code = 9160774) Roll Cutting Operator ID - MMThe SENIOR CLINICAL DATA ANALYST STAT High Sensitivity Troponin-I results should be used in conjunctionwith other diagnostic information such as ECG, clinical observations and information, and patient symptoms to aid in the diagnosis of MA.XR CHEST 1 VIEW PORTABLE / [id number] 17:22:35 [facility] CENTERName: MANJIT NESS : 1950 Sex: FINDICATION: chest painCOMPARISON: NoneTECHNIQUE: Single frontal view of the chest.FINDINGS: Lungs and pleura: Clear lungs. No effusion.Heart and mediastinum: Normal heart size. Unremarkable mediastinalcontours.Osseous structures: No acute abnormality.Other: None.IMPRESSION:No acute intrathoracic abnormality.HEMOGLOBIN [id number] 10:46:42 Test Item Value Reference Range Interpretation Comments HEMOGLOBIN A1C 6.5 % See_Comment H [Automated m essage] ELECTROPHORESIS (BEAKER) The system which (test code = 3811) generated this result transmitted ref erence range: <=5.6%. The reference range was not used to int erpret this result as normal/abnormal . "The A1c is measured using a NGSP-certified method. HbA1c value equal to or greater than 6.5% as thediagnosis cutoff for diabetes. An HbA1c value of 5.7- 6.4% indicates increased risk for diabetes (prediabetes)."Roll Cutting Operator ID - ADMPOCT- GLUCOSE [id number] 10:25:17 Test Item Value Reference Range Interpretation Comments POC-GLUCOSE METER 104 mg/dL 70-110 : TESTED A T [facility] 6720 (BEAKER) (test code = [facility], 1538) 54436: Roll Cutting Operator/Techni gareth ID = [id number] for MARIA E WOLF POCT-GLUCOSE [id number] 09:30:38 Test Item Value Reference Range Interpretation Comments POC-GLUCOSE METER 95 mg/dL 70-110 : TESTED A T [facility] 6720 (BEAKER) (test code = [facility], 1538) 51556: Roll Cutting Operator/Techni gareth ID = [id number] for Cheri Winkler POCT-GLUCOSE [id number] 07:24:56 Test Item Value Reference Range Interpretation Comments POC-GLUCOSE METER 92 mg/dL 70-110 : TESTED A T [facility] 6720 (BEAKER) (test code = [facility], 1538) 17689: Roll Cutting Operator/Techni gareth ID = [id number] for Cheri Winkler [id number] 06:56:14 Test Item Value Reference Range Interpretation Comments FERRITIN (BEAKER) (test code = 13.55 ng/mL 5.00-275.00 361) Roll Cutting Operator ID - MMIRON, TIBC, % SAT. (WITHOUT FERRITIN)2022-11-12 06:36:33 Test Item Value Reference Range Interpretation Comments IRON (BEAKER) (test code = 547) 21.0 ug/dL 40.0-160.0 L TOTAL IRON BINDING CAPACITY 385 ug/dL 250-450 (BEAKER) (test code = 769) IRON % SATURATION (2) (BEAKER) 5 % 20-55 L (test code = 2590) Roll Cutting Operator ID - MMCOMPREHENSIVE METABOLIC [id number] 05:55:11 Test Item Value Reference Range Interpretation Comments TOTAL PROTEIN 6.3 gm/dL 6.0-8.3 (BEAKER) (test code = 770) ALBUMIN (BEAKER) 3.4 g/dL 3.5-5.0 L (test code = 1145) ALKALINE 86 U/L 40-150 PHOSPHATASE (BEAKER) (test code = 346) BILIRUBIN TOTAL 0.4 mg/dL 0.2-1.2 (BEAKER) (test code = 377) SODIUM (BEAKER) 130 meq/L 136-145 L (test code = 381) POTASSIUM (BEAKER) 4.4 meq/L 3.5-5.1 (test code = 379) CHLORIDE (BEAKER) 100 meq/L 98-107 (test code = 382) CO2 (BEAKER) (test 20 meq/L 22-29 L code = 355) BLOOD UREA 18 mg/dL 7-21 NITROGEN (BEAKER) (test code = 354) CREATININE 1.14 mg/dL 0.57-1.25 (BEAKER) (test code = 358) GLUCOSE RANDOM 85 mg/dL 70-105 (BEAKER) (test code = 652) CALCIUM (BEAKER) 8.4 mg/dL 8.4-10.2 (test code = 697) AST (SGOT) 22 U/L 5-34 (BEAKER) (test code = 353) ALT (SGPT) 9 U/L 6-55 (BEAKER) (test code = 347) EGFR (BEAKER) 51 Interpretatio n of eGFR (test code = 1092) mL/min/1.[address] age Description sq m Result G1 Raquel l or high >=90 G2 Mildly decreased 60-89 G3a Mildl y to moderately 45-5 9 G3b Moderately to s everely 30-44 G4 Sever ly decreased 15-29 G5 Kidney failure <15Repo rted eGFR is based on the CKD-EPI 2020 equation t hat does not use a race coefficientEsti mated GFR is not as accur ate as Creatinine Elisa abad in predicting glom erular filtration rate . Estimated GFR is not appl icable for dialysis patien ts Roll Cutting Operator ID - ADMINB-TYPE NATRIURETIC FACTOR (BNP)2022-11-12 05:40:29 Test Item Value Reference Range Interpretation Comments B-TYPE NATRIURETIC PEPTIDE (BEAKER) 296 pg/mL 0-100 H (test code = 700) Roll Cutting Operator ID - MMCBC (HEMOGRAM ONLY)2022-11-12 05:29:15 Test Item Value Reference Range Interpretation Comments WHITE BLOOD CELL COUNT (BEAKER) 8.3 K/ L 3.5-10.5 (test code = 775) RED BLOOD CELL COUNT (BEAKER) 3.33 M/ L 3.93-5.22 L (test code = 761) HEMOGLOBIN (BEAKER) (test code = 8.2 GM/DL 11.2-15.7 L 410) HEMATOCRIT (BEAKER) (test code = 25.6 % 34.1-44.9 L 411) MEAN CORPUSCULAR VOLUME (BEAKER) 77 fL 79-95 L (test code = 753) MEAN CORPUSCULAR HEMOGLOBIN 24.6 pg 25.6-32.2 L (BEAKER) (test code = 751) MEAN CORPUSCULAR HEMOGLOBIN CONC 32.0 GM/DL 32.2-35.5 L (BEAKER) (test code = 752) RED CELL DISTRIBUTION WIDTH 19.9 % 11.7-14.4 H (BEAKER) (test code = 412) PLATELET COUNT (BEAKER) (test 344 K/CU MM 150-450 code = 756) MEAN PLATELET VOLUME (BEAKER) 8.9 fL 9.4-12.3 L (test code = 754) NUCLEATED RED BLOOD CELLS 0 /100 WBC 0-0 (BEAKER) (test code = 413) POCT-GLUCOSE [id number] 01:11:53 Test Item Value Reference Range Interpretation Comments POC-GLUCOSE METER 86 mg/dL 70-110 : Notified RN/MD: TESTED (BEAKER) (test code = AT [facility] [address] [facility] 1538) [place], [address]: Roll Cutting Operator/Techni gareth ID = [id number] for Fei Escobar [id number] 16:06:57 Test Item Value Reference Range Interpretation Comments MAGNESIUM (BEAKER) (test code = 1.8 mg/dL 1.6-2.6 627) Roll Cutting Operator ID - [id number] 16:06:57 Test Item Value Reference Range Interpretation Comments PHOSPHORUS (BEAKER) (test code = 3.9 mg/dL 2.3-4.7 604) Roll Cutting Operator ID - MMHEPATIC FUNCTION [id number] 16:06:57 Test Item Value Reference Range Interpretation Comments TOTAL PROTEIN (BEAKER) (test code = 6.3 gm/dL 6.0-8.3 770) ALBUMIN (BEAKER) (test code = 1145) 3.5 g/dL 3.5-5.0 BILIRUBIN TOTAL (BEAKER) (test code 0.5 mg/dL 0.2-1.2 = 377) BILIRUBIN DIRECT (BEAKER) (test 0.3 mg/dL 0.1-0.5 code = 706) ALKALINE PHOSPHATASE (BEAKER) (test 88 U/L 40-150 code = 346) AST (SGOT) (BEAKER) (test code = 17 U/L 5-34 353) ALT (SGPT) (BEAKER) (test code = 9 U/L 6-55 347) Roll Cutting Operator ID - MMBASIC METABOLIC [id number] 16:06:56 Test Item Value Reference Range Interpretation Comments SODIUM (BEAKER) 131 meq/L 136-145 L (test code = 381) POTASSIUM 4.5 meq/L 3.5-5.1 (BEAKER) (test code = 379) CHLORIDE (BEAKER) 101 meq/L 98-107 (test code = 382) CO2 (BEAKER) 21 meq/L 22-29 L (test code = 355) BLOOD UREA 18 mg/dL 7-21 NITROGEN (BEAKER) (test code = 354) CREATININE 1.13 mg/dL 0.57-1.25 (BEAKER) (test code = 358) GLUCOSE RANDOM 86 mg/dL 70-105 (BEAKER) (test code = 652) CALCIUM (BEAKER) 8.4 mg/dL 8.4-10.2 (test code = 697) EGFR (BEAKER) 51 Interpretatio n of eGFR (test code = mL/min/1.73 values Stage De scription 1092) sq m Result G1 Raquel l or high >=90 G2 Mildly decreased 60-89 G3a Mildl y to moderately 45-5 9 G3b Moderately to s everely 30-44 G4 Severl y decreased 15-29 G5 Kidney failure <15Reported eGF R is based on the CKD-EPI 2020 equation that d oes not use a race coefficientEsti mated GFR is not as accur ate as Creatinine Elisa abad in predicting glom erular filtration rate . Estimated GFR is not appl icable for dialysis patien ts Roll Cutting Operator ID - MMCBC (HEMOGRAM ONLY)2022-11-11 15:59:02 Test Item Value Reference Range Interpretation Comments WHITE BLOOD CELL COUNT (BEAKER) 10.3 K/ L 3.5-10.5 (test code = 775) RED BLOOD CELL COUNT (BEAKER) 3.36 M/ L 3.93-5.22 L (test code = 761) HEMOGLOBIN (BEAKER) (test code = 8.3 GM/DL 11.2-15.7 L 410) HEMATOCRIT (BEAKER) (test code = 25.2 % 34.1-44.9 L 411) MEAN CORPUSCULAR VOLUME (BEAKER) 75 fL 79-95 L (test code = 753) MEAN CORPUSCULAR HEMOGLOBIN 24.7 pg 25.6-32.2 L (BEAKER) (test code = 751) MEAN CORPUSCULAR HEMOGLOBIN CONC 32.9 GM/DL 32.2-35.5 (BEAKER) (test code = 752) RED CELL DISTRIBUTION WIDTH 20.3 % 11.7-14.4 H (BEAKER) (test code = 412) PLATELET COUNT (BEAKER) (test 333 K/CU MM 150-450 code = 756) MEAN PLATELET VOLUME (BEAKER) 8.5 fL 9.4-12.3 L (test code = 754) NUCLEATED RED BLOOD CELLS 0 /100 WBC 0-0 (BEAKER) (test code = 413) PROTHROMBIN [id number] 15:53:22 Test Item Value Reference Range Interpretation Comments PROTIME (BEAKER) (test code = 14.0 seconds 11.9-14.2 759) INR (BEAKER) (test code = 370) 1.15 <=5.90 RECOMMENDED COUMADIN/WARFARIN INR THERAPY RANGESSTANDARD DOSE: 2.0 - 3.0 Includes: PROPHYLAXIS for venous thrombosis, systemic embolization; TREATMENT for venous thrombosis and/or pulmonary embolus.HIGH RISK: Target INR is 2.5-3.5 for patients with mechanical heart valves.GLUCOSE [id number] 16:47:00 Test Item Value Reference Range Interpretation Comments GLUCOSE BEDSIDE (test 100 MG/DL 70-110 N Perfor med by certified code = GLUBED) quantometer operator at [facility] GLUCOSE [id number] 13:58:00 Test Item Value Reference Range Interpretation Comments GLUCOSE BEDSIDE (test 86 MG/DL 70-110 N Perfor med by certified code = GLUBED) quantometer operator at [facility] GLUCOSE [id number] 11:50:00 Test Item Value Reference Range Interpretation Comments GLUCOSE BEDSIDE (test 81 MG/DL 70-110 N Perfor med by certified code = GLUBED) quantometer operator at [facility] GLUCOSE [id number] 08:16:00 Test Item Value Reference Range Interpretation Comments GLUCOSE BEDSIDE (test 86 MG/DL 70-110 N Perfor med by certified code = GLUBED) quantometer operator at [facility] CBC W/O [id number] 05:37:00 Test Item Value Reference Range Interpretation [...] fL 7.0-9.0 H = MPV) BASIC METABOLIC [id number] 05:21:00 Test Item Value Reference Range Interpretation [...] the recommended for lucila for GFRby the [facility] Kidney Foundati on for Adults.The GFR will not calculate if th e sex is unknown or if thepatient's ag e is <18 years. CREATININE (test 1.2 mg/dL 0.6-1.3 N code = CREAT) CALCIUM (test code = 8.4 mg/dL 8.0-10.5 N CA) GLUCOSE [id number] 23:44:00 Test Item Value Reference Range Interpretation Comments GLUCOSE BEDSIDE (test 142 MG/DL 70-110 H Perfor med by certified code = GLUBED) quantometer operator at [facility] GLUCOSE [id number] 22:14:00 Test Item Value Reference Range Interpretation Comments GLUCOSE BEDSIDE (test 45 MG/DL 70-110 L Perfor med by certified code = GLUBED) quantometer operator at [facility] GLUCOSE [id number] 17:05:00 Test Item Value Reference Range Interpretation Comments GLUCOSE BEDSIDE (test 95 MG/DL 70-110 N Perfor med by certified code = GLUBED) quantometer operator at [facility] GLUCOSE [id number] 09:26:00 Test Item Value Reference Range Interpretation Comments GLUCOSE BEDSIDE (test 108 MG/DL 70-110 N Perfor med by certified code = GLUBED) quantometer operator at [facility] TROP-I HIGH [id number] 03:07:00 Test Item Value Reference Range Interpretation Comments TROP-I HIGH 593 ng/L 0-34 HH CAUTION: Units of the SENSITIVITY (test current te st methodology code = TROPIHS) (ng/L) diffe rfrom the prior test meth odology (ng/mL) by a fa ctor of 1000. 99t h Percentile Uppe r Reference Limit (URL): Fe males: 34 ng/LMales: 54 n g/L In order to distin rust acute elevations of h igh sensitivitytrop onin [...] URLs mayvar y by method. TROP-I HIGH [id number] 23:53:00 Test Item Value Reference Range Interpretation Comments TROP-I HIGH 541 ng/L 0-34 HH CAUTION: Units of the SENSITIVITY (test current te st methodology code = TROPIHS) (ng/L) diffe rfrom the prior test meth odology (ng/mL) by a fa ctor of 1000. 99t h Percentile Uppe r Reference Limit (URL): Fe males: 34 ng/LMales: 54 n g/L In order to distin rust acute elevations of h igh sensitivitytrop onin from other clinical conditions, the FourthUnive rsal Definition of M yocardial Infarction stressesclinica l assessment and the demonstration o f a rise and/orfall in s erial troponin result s above the URL. These resu lts were obtained using Siemens [employer]ell[employer] IM TnI Hreagent. Results from di [employer] methodologies s hould not becompared to o ne another as quantitative results and URLs mayvar y by method. GLUCOSE [id number] 23:32:00 Test Item Value Reference Range Interpretation Comments GLUCOSE BEDSIDE (test 158 MG/DL 70-110 H Perfor med by certified code = GLUBED) quantometer operator at [facility] LIPOPROTEIN [id number] 18:26:00 Test Item Value Reference Range Interpretation Comments LIPOPROTEIN LDL 50.8 mg/dL 0-100 N <100 OPTIMAL 100-129 NEAR (test code = LDL) OPTIMAL/AB OVE [id number] 89 HIGH>DB=314 RONDA Y HIGH*Guidelines provided by the National Cholesterol EducationProgra m Adult Treatment Panel III PROTHROMBIN [id number] 18:14:00 Test Item Value Reference Range Interpretation [...] (to prevent recurrent infar ct). THROMBOPLASTIN TIME [id number] 18:14:00 Test Item Value Reference Range Interpretation Comments THROMBOPLASTIN TIME 29.0 Seconds 25.0-39.5 N Therape utic Range: PARTIAL (test code = 50.4 - 88.3 Seconds PTT) Effective 09/17/2018 BASIC METABOLIC [id number] 18:11:00 Test Item Value Reference Range Interpretation [...] 8.2 mg/dL 8.0-10.5 N CA) TROP-I HIGH [id number] 18:11:00 Test Item Value Reference Range Interpretation Comments TROP-I HIGH 607 ng/L 0-34 HH Critical result called to SENSITIVITY (test DEE RIVERA JENNIFER, RNby code = TROPIHS) G.LAB.ATD at 1810 [...] URLs mayvar y by method. CBC W/AUTO [id number] 17:43:00 Test Item Value Reference Range Interpretation [...] NO = MDIFF) - XR CHEST 1 [id number] 00:00:00 [facility] 1950 Sex: F FAX: Ariadne Sheikh NP [phone] [place]: St: [facility] FAX: John Saavedra MD FAX: Elena Trent APR [phone] Name: MANJIT NESS [facility] : 1950 Age/S: 72/F [address] [place] [address] Blvd Unit #: [id number]: [place] [address] Phys: Elena Trent APRNNP Acct: [id number] Dis Date: Status: REG ER PHONE #: [phone] Exam Date: 06/10/2022 1710 FAX #: [phone] Reason: anemia? EXAMS: CPT CODE: [id number] XR CHEST 1 V 89727 PROCEDURE INFORMATION: Exam: XR Chest Exam date [...] Ariadne Sheikh NP; John Saavedra MD; Elena SMITH [facility] Technologist: Gia Priest, RT(R); Nida Henriquez RT(R) Trnscrd Date /Time/By: 06/10/2022 (1823) : By: [email or web address] [facility] Print D/T: S: 06/10/2022 (1823) PAGE 1 Signed Report- DOP ART K 12 SCHOOL PRINCIPAL LEVEL [id number] 00:00:00 [facility] : 1950 Sex: F Name: MANJIT NESS [facility] : 1950 Age/S: 72 / F [address] [place] [address] Blvd Unit #: [id number] Loc: [place] [address] Phys: MileyMagdalenocole Velazquez APRNNP Acct: [id number] Dis Date: Status: ADM IN PHONE #: [phone] Exam Date: 06/10/20221826 FAX #: [phone] Reason: recent lle angiocath, decreased pulses EXAMS: CPT CODE: [id number] DOP ART K 12 SCHOOL PRINCIPAL LEVEL [place] [address] PROCEDURE INFORMATION: Exam: US Duplex Lower Extremity [...] PAGE 1 Signed Report (CONTINUED) Name: MANJIT NESS [facility] Mora Jordan : 1950 Age/S: 72 / F [address] [place] [address] Blvd Unit #: [id number] Loc: Anjel AU85893 Phys: Magdaleno Trentmeirsamreen Marcus APRNNP Acct: [id number] Dis Date: Status: ADM IN PHONE #: [phone] Exam Date: 06/10/20221826 FAX #: [phone] Reason: recent lle angiocath, decreased pulses EXAMS: CPT CODE: [id number] DOP ART K 12 S[employer] PRINCIPAL LEVEL [place] [address] (Continued) The peak systolic velocity is 118 [...] Ariadne Sheikh NP; John Saavedra MD; Elena SMITH [facility] Technologist: Camelia Bustillo RDMS() Trnscb Date/Time: 06/10/2022 (1918) [email or web address] Orig Print D/T: S: 06/10/2022 (1919) Pr obe: PAGE 2 Signed ReportGLUCOSE [id number] 17:49:00 Test Item Value Reference Range Interpretation Comments GLUCOSE BEDSIDE (test 148 MG/DL 70-110 H Perfor med by certified code = GLUBED) quantometer operator at [facility] BASIC METABOLIC [id number] 12:21:00 Test Item Value Reference Range Interpretation [...] 8.6 mg/dL 8.0-10.5 N CA) CBC W/AUTO [id number] 12:16:00 Test Item Value Reference Range Interpretation [...] REQUIRED (test code NO = MDIFF) RBC [id number] 12:16:00 Test Item Value Reference Range Interpretation Comments ANISOCYTOSIS (test code = ANISO) 3+ POLYCHROMASIA (test code = POLC) 1+ HYPOCHROMIA (test code = HYPO) 2+ POIKILOCYTOSIS (test code = POIK) 1+ MICROCYTOSIS (test code = MICR) 2+ MACROCYTOSIS (test code = MACR) 2+ SCHISTOCYTES (test code = SERENITY) FEW PROTHROMBIN [id number] 12:05:00 Test Item Value Reference Range Interpretation [...] Infarction (to prevent recurrent infar ct). GLUCOSE [id number] 11:41:00 Test Item Value Reference Range Interpretation Comments GLUCOSE BEDSIDE (test 86 MG/DL 70-110 N Perfor med by certified code = GLUBED) quantometer operator at [facility] - XR CHEST 1 [id number] 00:00:00 [facility] : 1950 Sex: F FAX: Rayne Miranda [phone] [place] St: PRE Name: NESSMANJIT Dana [facility] : 1950 Age/S: 72/F [address] [place] [address] Unit #: [id number] Loc: [place] [address] Phys: Rayne Ghosh MD Acct: [id number] Dis Date: Status: PRE [facility] PHONE #: [phone] Exam Date: 06/06/2022 1126 FAX #: Reason: PREOP ORDERS EXAMS: CPT CODE: [id number] XR CHEST 1 V 17231 PROCEDURE INFORMATION: Exam: XR Chest Exam date [...] Montilla; Gricelda Castano RT(R) Trnscrd Date/Time/By: 06/06/2022 (1736) : By: Vani Orig Print D/T: S: 06/06/2022 (0234) PAGE 1 Signed ReportGLUCOSE [id number] 12:48:00 Test Item Value Reference Range Interpretation Comments GLUCOSE BEDSIDE (test 100 MG/DL 70-110 N Perfor med by certified code = GLUBED) quantometer operator at [facility] GLUCOSE [id number] 08:15:00 Test Item Value Reference Range Interpretation Comments GLUCOSE BEDSIDE (test 156 MG/DL 70-110 H Perfor med by certified code = GLUBED) quantometer operator at [facility] GLUCOSE [id number] 21:25:00 Test Item Value Reference Range Interpretation Comments GLUCOSE BEDSIDE (test 119 MG/DL 70-110 H Perfor med by certified code = GLUBED) quantometer operator at [facility] GLUCOSE [id number] 18:45:00 Test Item Value Reference Range Interpretation Comments GLUCOSE BEDSIDE (test 103 MG/DL 70-110 N Perfor med by certified code = GLUBED) quantometer operator at [facility] GLUCOSE [id number] 12:35:00 Test Item Value Reference Range Interpretation Comments GLUCOSE BEDSIDE (test 86 MG/DL 70-110 N Perfor med by certified code = GLUBED) quantometer operator at [facility] GLUCOSE [id number] 08:10:00 Test Item Value Reference Range Interpretation Comments GLUCOSE BEDSIDE (test 95 MG/DL 70-110 N Perfor med by certified code = GLUBED) quantometer operator at [facility] BASIC METABOLIC [id number] 04:44:00 Test Item Value Reference Range Interpretation [...] the recommended for lucila for GFRby the [facility] Foundati on for Adults.The GFR will not calculate if th e sex is unknown or if thepatient's ag e is <18 years. CREATININE (test 1.2 mg/dL 0.6-1.3 N code = CREAT) CALCIUM (test code = 8.7 mg/dL 8.0-10.5 N CA) CBC W/AUTO [id number] 04:31:00 Test Item Value Reference Range Interpretation [...] REQUIRED (test code NO = MDIFF) GLUCOSE [id number] 20:44:00 Test Item Value Reference Range Interpretation Comments GLUCOSE BEDSIDE (test 135 MG/DL 70-110 H Perfor med by certified code = GLUBED) quantometer operator at [facility] GLUCOSE [id number] 15:55:00 Test Item Value Reference Range Interpretation Comments GLUCOSE BEDSIDE (test 83 MG/DL 70-110 N Perfor med by certified code = GLUBED) quantometer operator at [facility] GLUCOSE [id number] 11:17:00 Test Item Value Reference Range Interpretation Comments GLUCOSE BEDSIDE (test 85 MG/DL 70-110 N Perfor med by certified code = GLUBED) quantometer operator at [facility] COAGULATION TIME [id number] 08:28:00 Test Item Value Reference Range Interpretation Comments COAGULATION TIME 224 SECONDS Performed b y ACTIVATED (test code = certi fied quantometer operator ACT) at [facility] GLUCOSE [id number] 08:19:00 Test Item Value Reference Range Interpretation Comments GLUCOSE BEDSIDE (test 143 MG/DL 70-110 H Perfor med by certified code = GLUBED) quantometer operator at [facility] GLUCOSE [id number] 07:50:00 Test Item Value Reference Range Interpretation Comments GLUCOSE BEDSIDE (test 90 MG/DL 70-110 N Perfor med by certified code = GLUBED) quantometer operator at [facility] GLUCOSE [id number] 02:22:00 Test Item Value Reference Range Interpretation Comments GLUCOSE BEDSIDE (test 143 MG/DL 70-110 H Perfor med by certified code = GLUBED) quantometer operator at [facility] GLUCOSE [id number] 02:19:00 Test Item Value Reference Range Interpretation Comments GLUCOSE BEDSIDE (test 171 MG/DL 70-110 H Perfor med by certified code = GLUBED) quantometer operator at [facility] GLUCOSE [id number] 02:18:00 Test Item Value Reference Range Interpretation Comments GLUCOSE BEDSIDE (test 161 MG/DL 70-110 H Perfor med by certified code = GLUBED) quantometer operator at [facility] [id number] 02:17:00 Test Item Value Reference Range Interpretation Comments ACT-ISTAT (test code 225 SEC 74-137 H Perform ed by certified = ACTI) quantometer operator at [facility] GLUCOSE [id number] 07:28:00 Test Item Value Reference Range Interpretation Comments GLUCOSE BEDSIDE (test 111 MG/DL 70-110 H Perfor med by certified code = GLUBED) quantometer operator at [facility] CBC W/AUTO [id number] 14:31:00 Test Item Value Reference Range Interpretation [...] REQUIRED (test code NO = MDIFF) RBC [id number] 14:31:00 Test Item Value Reference Range Interpretation Comments ANISOCYTOSIS (test code = ANISO) 2+ MICROCYTOSIS (test code = MICR) 2+ MACROCYTOSIS (test code = MACR) 1+ TARGET CELLS (test code = TGT) 1+ ELLIPTOCYTES (test code = ELL) FEW SCHISTOCYTES (test code = SERENITY) FEW BASIC METABOLIC [id number] 12:02:00 Test Item Value Reference Range Interpretation [...] the recommended for lucila for GFRby the [facility] Kidney Foundati on for Adults.The GFR will not calculate if th e sex is unknown or if thepatient's ag e is <18 years. CREATININE (test 1.0 mg/dL 0.6-1.3 N code = CREAT) CALCIUM (test code = 8.5 mg/dL 8.0-10.5 N CA) PROTHROMBIN [id number] 11:59:00 Test Item Value Reference Range Interpretation [...] recurrent infar ct). - XR CHEST 2 [id number] 00:00:00 [facility] : 1950 Sex: F FAX: Manny Gonzalez MD [phone] [place] St: PRE Name: MANJIT NESS [facility] : 1950 Age/S: 72/F [address] [place] [address] Unit #: [id number] Loc: [place] [address] Phys: Manny Grey MD Acct: [id number] Dis Date: Status: PRE SDC PHONE #: [phone] Exam Date: 04/11/2022 1127 FAX #: [phone] Reason: PRE OP EXAMS: CPT CODE: [id number] XR CHEST 2 V 77134 PROCEDURE INFORMATION: Exam: XR ChestExam date and [...] MD Technologist: RT Babar(R) Trnscrd Date/Time/By: 04/11/2022 (4265) : B y: [email or web address] Orig Print D/T: S: 04/11/2022 (1300) PAGE 1 Signed ReportCOMP. METABOLIC PANEL (42210)2021-12-18 03:31:59 Test Item Value Reference Range Interpretation Comments NA (test code = 134 mmol/L 135-145 L 0975176409) K (test code = 4.5 mmol/L 3.5-5 4574543896) CL (test code = 98 mmol/L 98-108 1759767831) CO2 TOTAL (test code = 25 mmol/L 23-31 8093278877) AGAP (test code = 2-16 6278250425) BUN (test code = 20 mg/dL 7-23 7082060527) GLUCOSE (test code = 133 mg/dL 70-110 H 7242025460) CREATININE (test code = 1.04 mg/dL 0.5-1.04 1147116439) TOTAL BILI (test code = 0.4 mg/dL 0.1-1.9 2046664254) CALCIUM (test code = 8.6 mg/dL 8.6-10.6 3846691720) T PROTEIN (test code = 6.7 g/dL 6.3-8.2 3339996055) ALBUMIN (test code = 4.0 g/dL 3.5-5 0483147172) ALK PHOS (test code = 153 U/L 34-122 H 9102449013) ALTv (test code = 78 U/L 5-35 H 1742-6) AST(SGOT) (test code = 27 U/L 13-40 2894391217) eGFR (test code = mL/min/1.73m2 3057702549) KARIS (test code = KARIS) Association of [...] tests). Lab Interpretation Abnormal (test code = 09852-8) [facility] WITH [id number] 03:16:01 Test Item Value Reference Range Interpretation [...] RDW-SD (test code = 46.9 fL 39-49.9 03882-8) RDW-CV (test code = 18.9 % 12-15.5 H 788-0) PLT (test code = See_Comment H [Automated 777-3) message] The sy stem which generated this result transmitted reference range : 166 - 358 10*3/ ?L. The reference r claudy was not used to interpret this result as normal/abnormal . MPV (test code = 9.2 fL 9.5-12.9 L 94207-8) NRBC/100 WBC (test See_Comment [Automat ed code = 2062865249) message] The system which generated this result transmitted reference range : 0.0 - 10.0 /100 WBCs. The refer ence range was not u sed to interpret th is result as normal/abnormal . NRBC x10^3 (test code See_Comment [Auto mated = 0259573202) message] The s ystem which generated this result transmitted reference range : 10*3/?L. The reference range was not used to interpret this result as normal/abnormal . GRAN MAT (NEUT) % 67.5 % (test code = 770-8) IMM GRAN % (test code 0.40 % = 2929909124) LYMPH % (test code = 19.1 % 736-9) MONO % (test code = 11.0 % 5905-5) EOS % (test code = 1.3 % 713-8) BASO % (test code = 0.7 % 706-2) GRAN MAT x10^3(ANC) 6.97 10*3/uL 1.88-7.09 (test code = 8147958401) IMM GRAN x10^3 (test 0.04 10*3/uL 0-0.06 code = 0252496372) LYMPH x10^3 (test code 1.97 10*3/uL 1.32-3.29 = 731-0) MONO x10^3 (test code 1.13 10*3/uL 0.33-0.92 H = 742-7) EOS x10^3 (test code = 0.13 10*3/uL 0.03-0.39 711-2) BASO x10^3 (test code 0.07 10*3/uL 0.01-0.07 = 704-7) Lab Interpretation Abnormal (test code = 35098-9) [id number] 11:11:00 Test Item Value Reference Range Interpretation Comments ACT-ISTAT (test code 196 SEC 74-137 H Perform ed by certified = ACTI) quantometer operator at [facility] CBC W/AUTO [id number] 17:02:00 Test Item Value Reference Range Interpretation [...] REQUIRED (test code NO = MDIFF) RBC [id number] 17:02:00 Test Item Value Reference Range Interpretation Comments ANISOCYTOSIS (test code = ANISO) 1+ POLYCHROMASIA (test code = POLC) SLIGHT POIKILOCYTOSIS (test code = POIK) 2+ MICROCYTOSIS (test code = MICR) 1+ TARGET CELLS (test code = TGT) RARE ELLIPTOCYTES (test code = ELL) 2+ ACANTHOCYTES (test code = ACAN) FEW NONE SCHISTOCYTES (test code = SERENITY) FEW BASIC METABOLIC [id number] 16:01:00 Test Item Value Reference Range Interpretation [...] = 8.5 mg/dL 8.0-10.5 N CA) PROTHROMBIN [id number] 15:56:00 Test Item Value Reference Range Interpretation [...] recurrent infar ct). - XR CHEST 2 [id number] 00:00:00 [facility] : 1950 Sex: F FAX: Manny Gonzalez MD [phone] [place] St: PRE Name: MILLERMANJIT Dana [facility] : 1950 Age/S: 71/F [address] [place] [address] Unit #: [id number] Loc: [place] [address] Phys: Manny Grey MD Acct: [id number] Dis Date: Status: PRE [facility] PHONE #: [phone] Exam Date: 11/28/20211512 FAX #: [phone] Reason: PREOP EXAMS: CPT CODE: [id number] XR CHEST 2 V 97635 PROCEDURE INFORMATION: Exam: XR ChestExam date and [...] Technologist: Elzbieta Lund RT(R) Trnscrd Date/Time/By: 11/28/2021 (1614) : By: [email or web address] Orig Print D/T: S: 11/28/2021 (5) PAGE 1 Signed ReportGLUCOSE [id number] 16:22:00 Test Item Value Reference Range Interpretation Comments GLUCOSE BEDSIDE (test 138 MG/DL 70-110 H Perfor med by certified code = GLUBED) quantometer operator at [facility] GLUCOSE [id number] 13:25:00 Test Item Value Reference Range Interpretation Comments GLUCOSE BEDSIDE (test 88 MG/DL 70-110 N Perfor med by certified code = GLUBED) quantometer operator at [facility] GLUCOSE [id number] 09:51:00 Test Item Value Reference Range Interpretation Comments GLUCOSE BEDSIDE (test 121 MG/DL 70-110 H Perfor med by certified code = GLUBED) quantometer operator at [facility] COVID 19 Asymptomatic IH [id number] 09:53:00 Test Item Value Reference Range Interpretation [...] high or waivedcomplexit y tests. CBC W/AUTO [id number] 09:10:00 Test Item Value Reference Range Interpretation [...] x10 3/uL 0.0-0.1 N NRBC#) BASIC METABOLIC [id number] 08:30:00 Test Item Value Reference Range Interpretation [...] = 9.0 mg/dL 8.0-10.5 N CA) PROTHROMBIN [id number] 08:23:00 Test Item Value Reference Range Interpretation [...] (to prevent recurrent infar ct). THROMBOPLASTIN TIME [id number] 08:23:00 Test Item Value Reference Range Interpretation Comments THROMBOPLASTIN TIME 30.6 Seconds 25.0-39.5 N Therape utic Range: PARTIAL (test code = 50.4 - 88.3 Seconds PTT) Effective 09/17/2018 - XR CHEST 2 [id number] 00:00:00 [facility] : 1950 Sex: F FAX: Rayne Miranda [phone] [place] St: PRE FAX: Gillian Donato Name: MANJIT NESS [facility] :1950 Age/S: 71/F [address] [place] [address] Unit #: [id number] Loc: [place] [address] Phys:Gillian Donato FRUIT TESTER Acct: [id number] Dis Date: Status: PRE SDC PHONE #: [phone] Exam Date: 04/25/2021 0948 FAX #: [phone] Reason: PREOP EXAMS: CPT CODE: [id number] XR CHEST 2 V 10107 PROCEDURE INFORMATION: Exam: XR Chest Exam date [...] NP Technologist: FARHAT [place]) Trnscrd Date/Time/By: 04/25/2021 (1107): By: [email or web address] Orig Print D/T: S: 04/25/2021 (110) PAGE 1 Signed Report Notes Date/Time Note Provider Source 2022-06-12 16:48:00-00:00 [facility] ([facility]) Discharge Summary REPORT#:[id number] REPORT STATUS: Signed DATE:06/12/22 TIME: 1647 PATIENT: MANJIT NESS UNIT #: [id number] ROOM/BED: [place] [address] : [birth year] AGE: 72 SEX: F ATTEND: Erica Valenzuela od, MD ADM AUTHOR: Bryant Zheng NP * ALL edits or amendments must be made on the el [employer]/computer document * Bryant Zheng 06/12/22 1648: PCP [...] Appointments PCP follow up: PCP: Ariadne Sheikh FRUIT TESTER PCP follow up timeframe: In 2-3 weeks [...] MD on 0 06/13/22 at 1827 RPT #:[id number] END OF REPORT 2022-06-12 14:07:00-00:00 [id number] [place] [address] PATIENT NAME: MANJIT NESS ADMIT DATE: 3 ACCOUNT NO: [id number] ROOM NO: [facility] AGE: 72 REPORT TYPE: eECHOCARDIOGRAM REPORT SEX: F ADMITTING PHYSICIAN:Jonathon Valenzuela MD ATTENDING PHYSICIAN:Jonathon Valenzuela MD *[place] [address] Transthoracic Echocardiogram Patient: Manjit Ness Study Date: 06/12/2022 BP: 117 / 68 Location: [facility] URN: [id number] : 1950 Age: 72 Height: 49 in / 124.5 cm Gender: F Weight: 99. 8 lb / 45.4 kg BMI/BSA: 29.3 kg/m 2 / 1.28 m 2 *Ordering Physician: * Reba Rodriges *Interpreting Physician: * Whit Villareal MD *Spring Repairer Helper Hand: * Aileen Guthrie Indications: Elevated troponin. Study [...] avg, TDI 17 <=14 PATIENT NAME: MANJIT NESS [id number] LVOT Value Ref Diam, S 1.81 cm [...] 4.14 m/sec --------- Pulmonic valve Value Ref OR v, ED 0.61 m/sec --------- Tricuspid valve [...] PATIENT NAME: MANJIT NESS 4095 2022-06-12 13:33:00-00:[address] [facility] Gastroenterology Progress Note REPORT#:[id number] REPORT STATUS: Signed DATE:06/12/22 TIME: 1333 PATIENT: MANJIT NESS UNIT #: [id number] ROOM/BED: [place] [address] : [birth year] AGE: 72 SEX: F ATTEND: Erica Valenzuela od, MD ADM AUTHOR: Ye Sanches MD * ALL edits or amendments must be made on the [employer]/computer document * Subjective Chief complaint: Anemia HPI: This is a 72-year-old woman with PMH of HTN, HLD , DM, CVA, PAD who is status post LLE angiogram with stenting that occurred o n 06/06/2022 presents to the ER with chief complaint of BLE pain, and ac [place] anemia. She also developed a left- sided headache around 3 AM yesterday and so she was seen at [facility]. While there she underwent a CT scan of her head/ brain that showed a old right lacunar infarct, otherwise n onactionable and she was noted to have a hemoglobin level of 4.6. She received 1 unit of PRB Cs transfusion, hemoglobin improved to 7.4 with plans for admission. Patient daughter r equested to leave [facility] due to frustration with the wait time for an inpatient bed. Due to concerns for GI bleeding she contaced Dr. Ghosh who recommended pt to come to [facility]. Pt reports having 1 episode of [...] 3. Coffee ground emesis at 1336 RPT #:[id number] END OF REPORT 2022-06-12 13:18:00-00:00 [id number] [place] [address] PATIENT NAME: MANJIT NESS ADMIT DATE: 3 ACCOUNT NO: [id number] ROOM NO: [facility] AGE: 72 REPORT TYPE: ENDOSCOPY REPORT [...] l was performed, and patient medications, allergies and sensitivities were reviewed. The patient's tole abad of previous anesthesia was reviewed. - The risks and benefits of the procedure and t he sedation options and risks were discussed with the patient. All questions were answered and inform ed consent was obtained. - Patient identification and proposed procedure were verified prior to the procedure by the physici an, the nurse, the setter juice packaging machines and the medical equipment technician. The procedure was verified in the procedure room. - Pre-procedure physical examination revealed n o contraindications to sedation. - ASA Grade Assessment: III - A patient with se elizabeth systemic disease. - After reviewing the risks and benefits, the p atient was deemed in satisfactory condition to undergo the procedure. - Monitored anesthesia care under the supervisi on of a HEALTHCARE SOCIAL WORKER was determined to be medically necessary f or this procedure based on review of the patient's medi jenifer history, medications, and prior anesthesia hist ory. After I obtained informed consent, the scope w as passed under direct vision. Throughout the proc [...] tolerated the procedure well. The quality of t he bowel preparation was poor. Findings: Extensive amounts [...] specimens collected. Recommendation: - Return patient to [facility] for ongoing care. - Resume previous diet. - Continue present medications. - Repeat colonoscopy in 3 months for screening purposes. Procedure Code(s): --- Professional --- 64806, 53, Colonoscopy, flexible; diagnostic, including collection of specimen(s) by brushing or washing, when performed (separate procedure) Diagnosis Code(s): --- Professional --- K92.1, Melena (includes Hematochezia) D62, Acute posthemorrhagic anemia CPT copyright 2020 [employer]. All rights reserved. The codes documented in this report are prelimin jeb and upon bacteriology technician review may be revised to meet current compliance requiremen ts. Ye Sanches MD 06/12/2022 1:31:53 PM Number of Addenda: 0 Note Initiated On: 06/12/2022 1:18 PM Provation {[id number]}.pdf ProVation FT PDF at 1332 PATIENT NAME: MANJIT NESS [id number] 2022-06-12 12:51:00-00:00 [facility] ([facility]) Pain Management Consult Note REPORT#:[id number] REPORT STATUS: Signed DATE:06/12/22 TIME: 1251 PATIENT: MANJIT NESS UNIT #: [id number] ROOM/BED: [place] [address] : 48 AGE: 72 SEX: F ATTEND: Erica Valenzuela od, MD ADM AUTHOR: Tahira Thomas FRUIT TESTER * ALL edits or amendments must be made on the [employer]/computer document * History of Present Illness Requesting [...] mellitus, Hypertension, Dyslipidemia, Periph arterial disease, Prior MA. Denies: Atrial fibrillation, Congestive heart failure. Past [...] 06/11 1316 O2 Flow Rate 2 06/11 0800 24 hour I O ending at 0700: [...] soft Extremities: moves all (lower leg pain) Neuro/REHAB TECH: alert Results Findings/data: Laboratory Tests: 06/12 06/12 [...] MPV (7.0 - 9.0 fL) 9.4 H 06/11 1653 Chemistry POC Glucose (70 - 110 MG/DL) 95 Diagnosis, Assessment Plan Free text A P: Assessment Patient assessed. chart reviewed. Back p ain is managed with PO IV short acting opioids PRN, Gabapentin for Neuropathic pain and Robaxin for muscle spasm. Plan 1. Acute complex pain syndrome 2/2 Neuropathy - Dilaudid 0.5mg q4hr PRN for pain 7-10 2nd carolee e -[place] 10/325 1tab q4hr PRN for pain 7-10 firs t line -[place] 5/325 1 tab q4hr PRN for pain [...] course of this admission as well as DUBBING MACHINE OPERATOR records reviewed Risk versus benefit of opiate [...] patient' s satisfaction. Patient has verbalized understan emily. Plan discussed with: patient Electronically Signed by Tahira Thomas NP on 0 06/12/22 at 1529 RPT #:[id number] END OF REPORT 2022-06-12 12:44:00-00:00 [id number] [place] [address] PATIENT NAME: MANJIT NESS ADMIT DATE: 3 ACCOUNT NO: [id number] ROOM NO: [facility] AGE: 72 REPORT TYPE: ENDOSCOPY REPORT [...] by the physicia n, the nurse, the setter juice packaging machines and the medical equipment technician. The procedure was verified in the procedure room. - Pre-procedure physical examination revealed n o contraindications to sedation. - ASA Grade Assessment: III - A patient with se elizabeth systemic disease. - After reviewing the risks and benefits, the patient was deemed in satisfactory condition to undergo the procedure. - Monitored anesthesia care under the supervis ion of a HEALTHCARE SOCIAL WORKER was determined to be medically necessary f or this procedure based on review of the patient's medi jenifer history, medications, and prior anesthesia hist ory. After obtaining informed consent, the endoscope was passed under direct vision. Throughout the pro cedure, the patient's blood pressure, pulse, and oxygen [...] stigmata of bleeding was found in the duodenal bulb. Complications: No immediate complications. Estimated Blood Loss: Estimated blood loss: none. Impression: - Normal esophagus. - Normal stomach. 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 Clips were placed. Treated with argon plasma coagulation (APC). - Erythematous duodenopathy. - No specimens collected. Recommendation: - Return patient to [facility] for ongoing care. - Resume previous diet. - Continue present medications. Procedure Code(s): --- Professional --- 11303, Esophagogastroduodenoscopy, flexible, transoral; with ablation of tumor(s), polyp(s), or other lesion(s) (includes pre- and post-dilatio n and guide wire passage, when performed) 78519, 59, Esophagogastroduodenoscopy, flexibl e, transoral; with control of bleeding, any method Diagnosis Code(s): --- Professional --- K31.819, Angiodysplasia of stomach and duodenu m without bleeding K31.89, Other diseases of stomach and duodenum D62, Acute posthemorrhagic anemia K92.1, Melena (includes Hematochezia) CPT copyright 2020 [employer]. All rights reserved. The codes documented in this report are prelimin jeb and upon bacteriology technician review may be revised to meet current compliance requiremen ts. Ye Sanches MD 06/12/2022 1:29:20 PM Number of Addenda: 0 PATIENT NAME: MANJIT NESS 4095 Note Initiated On: 06/12/2022 12:44 PM Provation {[id number]}.pdf ProVation FT PDF at 1329 PATIENT NAME: MANJIT NESS 4095 2022-06-12 11:55:00-00:00 [facility]) Cardiology Progress Note REPORT#:[id number] REPORT STATUS: Signed DATE:06/12/22 TIME: 1155 PATIENT: MANJIT NESS UNIT #: [id number] ROOM/BED: [place] : 48 AGE: 72 SEX: F ATTEND: Erica Valenzuela od, MD ADM AUTHOR: Elza Nash PATIENT RESOURCE SPECIALIST * ALL edits or amendments must be made on the el [employer]/computer document * Subjective Comments: s/p EGD Objective [...] Hydralazine HCl (APRESOLINE) 2 MG PACU Q10MIN OR N PRN IV Insulin Human Lispro (HUMALOG) 0 PACU ONCE PRN SUBQ Labetalol HCl (LABETALOL HCL) 5 MG PACU [...] Sodium Chloride (SODIUM CHLORIDE) 10 ML ASDIR OR N IV Clopidogrel Bisulfate (Plavix) 75 MG [...] normal temperature, no calf tenderness, no edema Neuro/REHAB TECH: alert, oriented X 3 Skin: dry Psychiatry: [...] H Results: labs reviewed, vital signs reviewed, [facility] personally rev'd Echo results: Summary: 1. [...] Whit Villareal MD on at 2337 RPT #:[id number] END OF REPORT 2022-06-12 07:24:00-00:[address] [facility] Hospitalist Progress Note REPORT#:[id number] REPORT STATUS: Signed DATE:06/12/22 TIME: 723 PATIENT: MANJIT NESS UNIT #: [id number] ROOM/BED: [place] [address] : 48 AGE: 72 SEX: F ATTEND: Erica Valenzuela od, MD ADM AUTHOR: Bryant Zheng FRUIT TESTER * ALL edits or amendments must be made on the [employer]/computer document * Bryant Zheng 06/12/22 0724: Subjective [...] Sodium Chloride (SODIUM CHLORIDE) 10 ML ASDIR OR N IV Clopidogrel Bisulfate (Plavix) 75 MG DAILY PO Lisinopril (ZESTRIL) 10 MG DAILY PO Rivaroxaban (XARELTO 15MG) 15 MG DAILY PO Albuterol Sulfate (VENTOLIN HFA) 1 PUFF RTQ4H OR N PRN INH (CAN) Albuterol Sulfate (ALBUTEROL [...] CVA tenderness, no midline v ertebral tend Neuro/REHAB TECH: alert, oriented X 3, CNII-XII intact Results Findings/Data: Laboratory Tests 06/12 06/11 06/11 06/11 06/11 043 2332 2203 1653 0915 Chemistry Sodium (134 [...] by Bryant Zheng NP Electronically Signed by Brynat Zheng NP on 02/24 at 0726 Electronically Signed by Jonathon Valenzuela MD on 0 06/12/22 at 1856 RPT #:[id number] END OF REPORT 2022-06-11 11:31:00-00:00 [facility] GE Consultation Note REPORT#:[id number] REPORT STATUS: Signed DATE:06/11/22 TIME: 1131 PATIENT: MANJIT NESS UNIT #: [id number] ROOM/BED: [place] [address] : 48 AGE: 72 SEX: F ATTEND: Erica Valenzuela od, MD ADM AUTHOR: Ye Sanches MD * ALL edits or amendments must be made on the [employer]/computer document * History of Present Illness Requesting clinician: Jonathon Valenzuela Reason for consult: Anemia Chief complaint: Anemia PCP: PCP: Ariadne Sheikh FRUIT TESTER HPI: This is a 72-year-old woman with PMH of HTN, HLD , DM, CVA, PAD who is status post LLE angiogram with stenting that occurred o n 06/06/2022 presents to the ER with chief complaint of BLE pain, and ac [place] anemia. She also developed a left- sided headache around 3 AM yesterday and so she was seen at [facility]. While there she underwent a CT [...] Ghosh who recommended pt to come to [facility]. Pt reports having 1 episode of [...] mellitus, Hypertension, Dyslipidemia, Periph arterial disease, Prior MA. Denies: Atrial fibrillation, Congestive heart failure. Past [...] clear ed by cardiology at 1140 RPT #:[id number] END OF REPORT 2022-06-11 09:12:00-00:00 [facility] ([facility]) Cardiology Consultation REPORT#:[id number] REPORT STATUS: Signed DATE:06/11/22 TIME: 911 PATIENT: MANJIT NESS UNIT #: [id number] ROOM/BED: [place] [address] : 48 AGE: 72 SEX: F ATTEND: Erica Valenzuela od, MD ADM AUTHOR: Reba Rodriges FRUIT TESTER * ALL edits or amendments must be made on the [employer]/computer document * History of Present Illness HPI [...] mellitus, Hypertension, Dyslipidemia, Periph arterial disease, Prior MA. Denies: Atrial fibrillation, Congestive heart failure. Past [...] normal temperature, no calf tenderness, no edema Neuro/REHAB TECH: alert, oriented X 3 Results Radiology Data: Recent Impressions: RADIOLOGY - XR CHEST 1 V 06/10 1710 Report Impression - Status: SIGNED Entered: 06/10/2022 1824 IMPRESSION: Trace right pleural effusion/atelectasis. Mild cardiomegaly. Impression By: [email or web address] Hillary Sun ULTRASOUND - DOP ART K [employer] SCHOOL PRINCIPAL LEVEL LENA 06/10 1827 Report Impression - [...] 0 06/11/22 at 1437 at 1401 RPT #:[id number] END OF REPORT 2022-06-11 07:00:00-00:00 [facility] ([facility]) Hospitalist History Physical REPORT#:[id number] REPORT STATUS: Signed DATE:06/11/22 TIME: 0700 PATIENT: MANJIT NESS UNIT #: [id number] ROOM/BED: [place] [address] : 48 AGE: 72 SEX: F ATTEND: Erica Valenzuela od, MD ADM AUTHOR: Bryant Zheng FRUIT TESTER * ALL edits or amendments must be made on the [employer]/computer document * Bryant Zheng 06/11/22 0700: History of Present Illness HPI Chief complaint: Le pain PCP: PCP: Airadne Sheikh NP HPI: 72-year-old female with PMH of HTN, [...] today and so she was seen at [facility]. While there she underwent [...] mellitus, Hypertension, Dyslipidemia, Periph arterial disease, Prior MA. Denies: Atrial fibrillation, Congestive heart failure. Past [...] PO BID 04/25/21 Strength: 2 MG TAB 0845 2344 LISINOPRIL (ZESTRIL) 10 MG PO DAILY 04/11/22 Strength: 10 MG TAB 1114 2344 ATORVASTATIN (LIPITOR) 40 MG PO DAILY 04/11/22 06/10/22 Strength: 40 MG TAB 1115 2343 hydrOXYzine HCL (ATARAX) 25 MG PO 04/11/2212/24 [...] 07 00 UNV (VENTOLIN HFA) INH 07/11 658 Albuterol Sulfate 2.5 MG RTQ4H PRN PRN 06/11 0 700 UNV (ALBUTEROL SULFATE) NEB 07/11 658 Blood Formation,Coagulation Sig/Serenity Start time Last Medication Dose Route Stop Time Status Admin Clopidogrel Bisulfate 75 MG DAILY 06/11 899 UN V (Plavix) PO 07/11 858 Rivaroxaban 15 MG DAILY 06/11 899 UNV (XARELTO 15MG) PO 02/07 0859 Cardiovascular Drugs Sig/Serenity Start time Last Medication Dose Route Stop Time Status Admin Atorvastatin Calcium 40 MG DAILY 06/11 899 UNV (LIPITOR) PO 07/11 858 Lisinopril 10 MG DAILY 06/11 899 UNV (ZESTRIL) PO 07/11 0859 Central Nervous System Agents Sig/Serenity Start time [...] 125 ML ASDIR PRN 06/10 1900 CKD (DEXTROSE 10% IN IV 06/11 174 [...] PRN 06/10 1900 AC (GLUCAGON) IM 06/11 1749 Allergies: Coded Allergies: bee venom protein (honey [...] Albuterol Sulfate (VENTOLIN HFA) 1 PUFF RTQ4H OR N PRN INH (UNV) Albuterol Sulfate (ALBUTEROL [...] CVA tenderness, no midline v ertebral tend Neuro/REHAB TECH: alert, oriented X 3, CNII-XII intact Results [...] % (Auto) (14.0 - 32.0 %) 15.0 [place] % (Auto) (4.8 - 9.0 %) 4.0 L Eos % (Auto) (0.3 - 3.7 %) 0.9 Baso % (Auto) (0.0 - 2.0 %) 0.7 Neut # (Auto) (2.0 - 7.6 x10 3/uL) 7.92 H Lymph # (Auto) (1.0 - 3.8 x10 3/uL) 1.50 [place] # (Auto) (0.1 - 0.8 x10 3/uL) [...] [email or web address] Hillary Sun ULTRASOUND - DOP ART K 12 S[employer]OL PRINCIPAL LEVEL LENA 06/10 1826 Report Impression - Status: SIGNED Entered: 06/10/2022 192 IMPRESSION: 1. The presence of monophasic flow [...] Valenzuela MD on 0 06/12/22 at 1855 RPT #:[id number] END OF REPORT 2022-06-10 17:12:00-00:[address] [facility] EMERGENCY PROVIDER REPORT REPORT#:[id number] REPORT STATUS: Signed DATE:06/10/22 TIME: 1711 PATIENT: MANJIT NESS UNIT #: [id number] ROOM/BED: [place] [address] AGE: 72 SEX: F PCP PHYS: Ariadne Sheikh FRUIT TESTER SERVICE AUTHOR: Elena Trent RNNP * ALL edits or amendments must be made on the [employer]/computer document * Elena Trent 06/10/22 1712: HPI-General [...] a nd so she was seen at [facility]. While there she underwent a CT [...] mellitus, Hypertension, Dyslipidemia, Periph arterial disease, Prior MA. Denies: Atrial fibrillation, Congestive heart failure. Past Surgical History: Reports: Vascular procedure, PCI. Alcohol Use Denies EtOH use Drug Use Denies recreational drugs Smoking status for patients 13 years old or olde r: Current every day smoker Physical Exam Vital Signs Vital Signs First Documented: Result Date Time Pulse Ox 99 06/10 1510 B/P 128/68 06/10 1510 B/P Mean 88 01/07 1510 O2 Delivery Room air 06/10 1509 Temp 36.6 06/10 1509 Pulse 87 06/10 1509 Resp 18 06/10 1509 Last Documented: Result Date Time Pulse Ox 99 06/10 1509 B/P 128/68 06/10 1509 B/P Mean 88 06/10 1509 O2 Delivery Room air 06/10 1509 Temp 36.6 06/10 1509 Pulse 87 06/10 1509 Resp 18 06/10 1509 Review of Vital Signs Reviewed Free Text [...] sxs. Ext: no obvious deformity. t race, FRUIT TESTER edema to BL feet, DP and PT pulses weak on the R, strong on the L. + sensation and brisk cap refill. calves supple and NT Back: Painless ROM Neuro: awake and alert, speech NL for age, behav ior age-appropriate. Skin: color NL, normal temperature, intact, no v isible rashes Interpretation Diagnostics Lab Results Interpretation Results Laboratory Tests 06/10/22 174: [Embedded Image Not Available] 06/10/22 173: [Embedded Image Not Available] Laboratory Tests: 06/100 [...] Coagulation INR (0.8 - 1.2) 1.1 PTT (Atlantic) (25.0 - 39.5 Seconds) 29.0 PT Patient/Control [...] % (Auto) (14.0 - 32.0 %) 15.0 [place] % (Auto) (4.8 - 9.0 %) 4.0 L Eos % (Auto) (0.3 - 3.7 %) 0.9 Baso % (Auto) (0.0 - 2.0 %) 0.7 Neut # (Auto) (2.0 - 7.6 x10 3/uL) 7.92 H Lymph # (Auto) (1.0 - 3.8 x10 3/uL) 1.50 [place] # (Auto) (0.1 - 0.8 x10 3/uL) [...] RADIOLOGY - XR CHEST 1 V 06/10 1709 Report Impression - Status: SIGNED Entered: 06/10/20221823 IMPRESSION: Trace right pleural effusion/atelectasis. Mild cardiomegaly. Impression By: [email or web address] Hillary Sun ULTRASOUND - DOP ART K 12 S[employer]OL PRINCIPAL LEVEL LENA 06/10 1826 Report Impression - Status: SIGNED Entered: 06/10/2022 192 IMPRESSION: 1. The presence of monophasic flow [...] 2042 ECG #1 Interpretation Date 06/10/22 Time 1715 Interpreted by and reviewed by , ED physician NL ECG Interpretation No STEMI, [...] External notes reviewed: Yes Reviewed external notes: a [place] [facility] record from [facility] including serum lab results and [...] understanding. All questions answered. Time of Re-Eval 1824 Re-Eval Status Improved ED Course Medication(s) Ordered [...] 4 MG X1ED STA 06/10 1647 DC 0 1/07 IV 06/10 1648 1732 Electrolytic, Caloric, And [...] Consultation Consultation Referral/Consult Name Tracee Kirkpatrick MD Creative Writer Called Cardiology Requested Call Time 1835 Requested Call Date 06/10/22 Call Returned Call returned Call Returned Time 1835 Call Returned Date 06/10/22 Creative Writer Will see patient, DISCUSSED SX, DIAG NOSTIC [...] )( Admission Accepts Yes )( Accepted Time 183 )( Accepted Date 06/10/22 Call Information will see patient, agrees with plan, PER SUMMIT, FRUIT TESTER Discharge/Care Plan Counseled Regarding Diagnosi s, Lab [...] Saw Pt Alone I have reviewed the PA/FRUIT TESTER's note and plan of car e. I was available for consultation as needed at al l times during the patient's visit in the emergency department. I agree with the clinical impression , plan and disposition. at 2053 Electronically Signed by John Saavedra MD on 01/24 at 1040 RPT #:[id number] END OF REPORT 2022-06-06 18:28:00-00:00 [facility] ([facility]) Operative Note - Full REPORT#:[id number] REPORT STATUS: Signed DATE:06/06/22 TIME: 1827 PATIENT: MANJIT NESS UNIT #: [id number] ROOM/BED: : 48 AGE: 72 SEX: F ATTEND: Roberto Ghosh MD ADM AUTHOR: Rayne Ghosh MD * ALL edits or amendments must be made on the el [employer]ronic/computer document * Operative Report ORM Surgeries: Surgery Date and Time: 06/06/2022 1430 Primary Procedure: ANGIOGRAM LEFT LEG,BALLOON A NGIOPLASTY Start date: 06/06/22 Start time: 1630 Pre-procedure diagnosis: 1. Atherosclerosis of [place] arteries left leg w ith rest pain 2. Left leg criticallimb ischemia 3. Left superficial femoral artery and popliteal artery occlusion Post-procedure diagnosis: same Procedures performed: 1. Percutaneous ultrasound-guided active access right common femoral artery with images maintained for record [id number] 2. Bilateral lower extremity arteriogram 50284 3. Percutaneous pharmacomechanical throm bectomy with Angiojet 6 Solent of left superficial femoral artery, popliteal artery, an d tibioperoneal artery with power-pulse/TPA 94608, 61955 4. Placement of popliteal artery stent graft 5 m m x 5 cm Viabahn with post angioplasty 03750 5. Left tibioperoneal artery stents, 3.5 mm - 6 mm Intact Tack stents X 6 with 3.5 mm post angioplasty, pos terior tibial artery 2.5 mm balloon angioplasty with placement of 300 ug of nitroglycerine 76178 6. Left anterior tibial artery 2.5 mm balloon an d proximal 3.5 mm balloon angioplasty proximally 60822 Technique/Procedure: The patient was brought into the operative room and prepped and draped in the usual sterile manner. Percut aneous ultrasound-guided active access was obtained to the right common femoral artery with a microc atheter system and exchanged over a Glidewire to a 6 Swiss 10 cm sheath. An Omni Flush cath [...] The sheath was exchanged to a 6 Swiss 45 cm sheath which was advanced across [...] was treated with suction thrombectomy with a navExact Sciencesro ss catheter. Post angioplasty was completed with [...] the PACU. Primary Surgeon: Dr. Rayne Ghosh Oil Fire Specialist(s): none Anesthesia: general anesthesia Operative findings: The [...] removed/altered: thrombus Implant(s): stents at 1850 RPT #:[id number] END OF REPORT 2022-06-06 18:08:00-00:00 [facility] ([facility]) Brief Op Note REPORT#:[id number] REPORT STATUS: Signed DATE:06/06/22 TIME: 1807 PATIENT: MANJIT NESS UNIT #: [id number] ROOM/BED: : 48 AGE: 72 SEX: F ATTEND: Roberto Ghosh MD ADM AUTHOR: Rayne Ghosh MD * ALL edits or amendments must be made on the [employer]/computer document * Op/Inv Proc Note - Brief ORM Surgeries: Surgery Date and Time: 06/06/2022 1430 Primary Procedure: ANGIOGRAM LEFT LEG,BALLOON A NGIOPLASTY Pre-procedure diagnosis: 1. Atherosclerosis of [place] arteries left leg w ith rest pain 2. Left leg criticallimb ischemia 3. Left superficial femoral artery and popliteal artery occlusion Post-procedure diagnosis: same as pre procedure dx Procedures performed: 1. Percutaneous ultrasound-guided active access right common femoral artery with images maintained for record [id number] 2. Bilateral lower extremity arteriogram 13568 3. Percutaneous pharmacomechanical throm bectomy with Angiojet 6 Solent of left superficial femoral artery, popliteal artery, an d tibioperoneal artery with power-pulse/TPA 26284, 71881 4. Placement of popliteal artery stent graft 5 m m x 5 cm Viabahn with post angioplasty 31146 5. Left tibioperoneal artery stents, 3.5 mm - 6 mm Intact Tack stents X 6 with 3.5 mm post angioplasty, pos terior tibial artery 2.5 mm balloon angioplasty with placement of 300 ug of nitroglycerine 93157 6. Left anterior tibial artery 2.5 mm balloon an d proximal 3.5 mm balloon angioplasty proximally 51612 Primary Surgeon: Dr. Rayne Ghosh Oil Fire Specialist(s): none Anesthesia: general anesthesia Findings: The right [...] cc Specimens removed/altered: thrombus at 1850 RPT #:[id number] END OF REPORT 2022-06-06 18:01:00-00:00 [facility] ([facility] Brief Discharge Note w/Med Rec REPORT#:[id number] REPORT STATUS: Signed DATE:06/06/22 TIME: 1801 PATIENT: MANJIT NESS UNIT #: [id number] ROOM/BED: : 48 AGE: 72 SEX: F ATTEND: Roberto Ghosh MD ADM AUTHOR: aRyne Ghosh MD * ALL edits or amendments must be made on the el [employer]/computer document * Med Rec Med Rec Discharge [...] % (Auto) (14.0 - 32.0 %) 25.0 Atlantic % (Auto) (4.8 - 9.0 %) 7.0 Eos % (Auto) (0.3 - 3.7 %) 2.6 Baso % (Auto) (0.0 - 2.0 %) 1.0 Neut # (Auto) (2.0 - 7.6 x10 3/uL) 5.90 Lymph # (Auto) (1.0 - 3.8 x10 3/uL) 2.30 Atlantic # (Auto) (0.1 - 0.8 x10 3/uL) [...] Result Date Time Pulse Ox 100 06/06 1730 B/P 181/77 06/06 1730 O2 Delivery Simple mask 06/06 1730 O2 Flow Rate 5 06/06 1730 Temp 98.4 06/06 1730 Pulse 92 06/06 173 Resp 21 06/06 1730 Brief Discharge Note w/Med Rec Discharge to: Home/Self Care Discharge diagnosis: atherosclerosis of [place] arteries left leg with rest pain Pt. [...] timeframe: In 1-2 weeks at 1802 RPT #:[id number] END OF REPORT 2022-04-15 15:30:00-00:00 [facility] ([facility] Cardiology Progress Note REPORT#:[id number] REPORT STATUS: Signed DATE:04/15/22 TIME: 1530 PATIENT: MANJIT NESS UNIT #: [id number] ROOM/BED: [place] [address] : 48 AGE: 72 SEX: F ATTEND: Vonda Bell ADM AUTHOR: Elza Nash PATIENT RESOURCE SPECIALIST * ALL edits or amendments must be made on the [employer]/[place] document * Subjective Patient reports: No: complaints. [...] Hydralazine HCl (APRESOLINE) 5 MG PACU Q10MIN OR N PRN IV (DC) Hydrocodone Bitart/Acetaminophen (NORCO 5/325) 1 TAB PACU ONCE PO (DC) Hydromorphone HCl (DILAUDID) 1 MG PACU Q10MIN OR N PRN IV (DC) Hydromorphone HCl (DILAUDID) [...] (DCD) Lactated Ringer's (LACTATED RINGERS) 1,000 ML OR EOP ONCALL IV (DCD) Lidocaine HCl (LIDOCAINE HCL/PF) 2 ML PREOP ONCA LL LOCAL (DCD) Lidocaine HCl (LIDOCAINE HCL/PF) 2 ML PREOP ONCA LL LOCAL (DCD) Sodium Chloride (SODIUM CHLORIDE 0.9%) 500 ML OR EOP ONCALL IV (DCD) Sodium Chloride (SODIUM CHLORIDE 0.9%) 500 ML OR EOP ONCALL IV (DCD) Sodium Chloride (SODIUM CHLORIDE 0.9%) 1,000 ML PREOP ONCALL IV (DCD) Sodium Chloride (SODIUM CHLORIDE) 5 ML ASDIR PRN IV (DCD) Sodium Chloride (SODIUM CHLORIDE) 10 ML ASDIR OR N IV (DCD) Sodium Chloride (SODIUM CHLORIDE [...] peripheral pulse ( left foot), no edema Neuro/REHAB TECH: alert, normal speech Skin: dry, intact, normal [...] atherecto my with 2.5 mm balloon angioplasty 42285 -Left anterior tibial artery amd posterior tibial artery percutaneous mechanical thrombectomy with CATRX penumbra device 36231, 3 6336 -Left superficial femoral an d popliteal artery stents, 5 m X 25 cm, 5 mm X 15 cm , 6 mm X 2.5 cm viabahns 71841 -Left Common iliac artery stent 7 mm X 29 mm Vis ipro balloon expandable stent 32542 2. Coronary artery disease with prior PCI/stent No chest Continue medical therapy 3. Tobacco abuse/COPD Strongly encouraged to quit smoking 4. Hypertension Continue lisinopril 5. Diabetes mellitus Manage per admitting physician 6. Hyperlipidemia Continue statin Okay to DC from cardiology. Outpatient follow-up with Dr. Grey in 1-2 weeks at 1539 Electronically Signed by Whit Villareal MD on at 1440 RPT #:[id number] END OF REPORT 2022-04-15 10:18:00-00:00 [facility] ([facility] Discharge Summary REPORT#:[id number] REPORT STATUS: Signed DATE:04/15/22 TIME: 1018 PATIENT: MANJIT NESS UNIT #: [id number] ROOM/BED: 3345-1 : 48 AGE: 72 SEX: F ATTEND: Vonda Bell ADM AUTHOR: Indiana Cardoso APRN * ALL edits or amendments must be made on the el [employer]ception [employer]/computer document * PCP PCP PCP: PCP: No [...] MG BEDTIME 04/13 2100 AC PO 05/13 205 Ropinirole HCl 4 MG BEDTIME 04/13 2100 [...] TAB Q6H PRN PRN 04/13 0630 AC 04/13 Codeine Phosphate PO 04/18 0629 1542 Acetaminophen [...] 4 MG PACU ONCE PRN 04/12 0730 D C IV 04/12 1721 Ropivacaine 150 MG ASDIR [...] Indiana Cardoso APRN on at 2231 at 1712 RPT #:[id number] END OF REPORT 2022-04-14 18:40:00-00:00 [facility] ([facility]) Operative Note - Full REPORT#:[id number] REPORT STATUS: Signed DATE:04/14/22 TIME: 184 PATIENT: MANJIT NESS UNIT #: [id number] ROOM/BED: 3345-1 : 48 AGE: 72 SEX: F ATTEND: Vonda Bell ADM AUTHOR: Rayne Ghosh MD * ALL edits or amendments must be made on the el Aktin[employer]/computer document * Operative Report ORM Surgeries: Surgery Date and Time: 04/14/2022 1615 Primary Procedure: ANGIOGRAMS LOWER EXTREMITY L EFT Start date: 04/14/22 Start time: 1630 Pre-procedure diagnosis: Left leg critical limb ischemia Left lower extremity atherosclerosis [place] rahul rupert with rest pain Left femoral-popliteal artery occlusion Post-procedure diagnosis: same Procedures performed: 1. Percutaneous ultrasound g uided access right common femoral artery with images maintained for record 59554 2. Abdominal aortagram 97542 3. Bilateral lower extreity arteriograms 50672 4. Left anterior tibial artery 0.9 laser atherec dudley with 2.5 mm balloon angioplasty 24079 5. Left anterior tibial artery amd posterior tib ial artery percutaneous mechanical [place] [address], [address]27 6. Left superficial femoral and popliteal artery stents, 5 m X 25 cm, 5 mm X 15 cm, 6 mm X 2.5 cm viabahns 15080 7. Left Common iliac artery stent 7 mm X 29 mm Visipro balloon expandable stent 17063 8. Percutaneous ultrasound g uided access retrograd left posterior tibial artery 15385-36 Technique/Procedure: The patient was brought into the operative room and prepped and draped in the usual sterile manner. Percut aneous ultrasound-guided active access was obtained to the right common femoral artery with a microc atheter system and exchanged over a Glidewire to a 6 Swiss 10 cm sheath. An Omni Flush cath [...] sheath wa s exchanged to a 6 Swiss 90 cm sheath which was advanced across [...] wire was exchanged changed into the 6 Swiss sheath and a body floss was obtained. [...] angioplastied with a 6 mm balloon. This italian elded good flow and good result and [...] the PACU. Primary Surgeon: Dr. Rayne Ghosh Oil Fire Specialist(s): none Anesthesia: general anesthesia Operative findings: Abdominal [...] stenosis. The peroneal artery is patent to [facility] hes at the malleolus. Left lower extremity arterio [...] stent and stent grafts at 1847 RPT #:[id number] END OF REPORT 2022-04-14 18:30:00-00:00 [facility] REPORT#:[id number] REPORT STATUS: Signed DATE:04/14/22 TIME: 1829 PATIENT: MANJIT NESS UNIT #: [id number] [place]ED: [facility] : 48 AGE: 72 SEX: F ATTEND: Vonda Bell ADM AUTHOR: Rayne Ghosh MD * ALL edits or amendments must be made on the el ectronic/computer document * Op/Inv Proc Note - Brief ORM Surgeries: Surgery Date and Time: 04/14/2022 1615 Primary Procedure: ANGIOGRAMS LOWER EXTREMITY L EFT Pre-procedure diagnosis: Left leg critical limb ischemia Left lower extremity atherosclerosis [place] rahul rupert with rest pain Left femoral-popliteal artery occlusion Post-procedure diagnosis: same as pre procedure dx Procedures performed: 1. Percutaneous ultrasound g uided access right common femoral artery with images maintained [place] record 39564 2. Abdominal aortagram 16284 3. Bilateral lower extreity arteriograms 41179 4. Left anterior tibial artery 0.9 laser atherec dudley with 2.5 mm balloon angioplasty 43554 5. Left anterior tibial artery amd posterior tib ial artery percutaneous mechanical [place] [address], 10464 6. Left superficial femoral and popliteal artery stents, 5 m X 25 cm, 5 mm X 15 cm, 6 mm X 2.5 cm viabahns 73627 7. Left Common iliac artery stent 7 mm X 29 mm Visipro balloon expandable stent 98586 8. Percutaneous ultrasound g uided access retrograd left posterior tibial artery 65366-70 Primary Surgeon: Dr. Rayne Ghosh Oil Fire Specialist(s): none Anesthesia: general anesthesia Findings: Abdominal exam [...] stenosis. The peroneal artery is patent to [facility] hes at the malleolus. Left lower extremity arterio [...] none Specimens removed/altered: thrombus at 1847 RPT #:[id number] END OF REPORT 2022-04-14 12:37:00-00:[address] [facility] Hospitalist Progress Note REPORT#:[id number] REPORT STATUS: Signed DATE:04/14/22 TIME: 1237 PATIENT: MANJIT NESS UNIT #: [id number] ROOM/BED: [place] [address] : 48 AGE: 72 SEX: F ATTEND: Vonda Bell ADM AUTHOR: Vonda Bell MD * ALL edits or amendments must be made on the [employer]/computer document * Subjective Chief complaint: she complaint [...] O2 Flow FiO2 Mean Ox Delivery Rate 04/14 1133 [...] (CKD) Lactated Ringer's (LACTATED RINGERS) 1,000 ML OR EOP ONCALL IV Lidocaine HCl (LIDOCAINE HCL/PF) 2 ML PREOP ONCA LL LOCAL Lidocaine HCl (LIDOCAINE HCL/PF) 2 ML PREOP ONCA LL LOCAL Sodium Chloride (SODIUM CHLORIDE 0.9%) 500 ML OR EOP ONCALL IV Sodium Chloride (SODIUM CHLORIDE 0.9%) 500 ML OR EOP ONCALL IV Sodium Chloride (SODIUM CHLORIDE 0.9%) 1,000 ML PREOP ONCALL IV Sodium Chloride (SODIUM CHLORIDE) 5 ML ASDIR PRN IV Sodium Chloride (SODIUM CHLORIDE) 10 ML ASDIR OR N IV Sodium Chloride (SODIUM CHLORIDE 0.9%) [...] all, no calf tenderness, no e tk Neuro/REHAB TECH: alert, oriented X 3, CNII-XII intact, normal [...] % (Auto) (14.0 - 32.0 %) 22.2 Atlantic % (Auto) (4.8 - 9.0 %) 7.7 Eos % (Auto) (0.3 - 3.7 %) 1.7 Baso % (Auto) (0.0 - 2.0 %) 0.7 Neut # (Auto) (2.0 - 7.6 x10 3/uL) 7.31 Lymph # (Auto) (1.0 - 3.8 x10 3/uL) 2.41 Atlantic # (Auto) (0.1 - 0.8 x10 3/uL) [...] HCl 1 MG PACU Q10MIN PRN PRN 11/0 9 0730 DC IV 04/12 1721 Hydromorphone HCl [...] Bell MD on 2 at 1240 RPT #:[id number] END OF REPORT 2022-04-14 10:08:00-00:00 [facility] Cardiology Progress Note REPORT#:[id number] REPORT STATUS: Signed DATE:04/14/22 TIME: 1008 PATIENT: MANJIT NESS UNIT #: [id number] ROOM/BED: 3345-1 : 48 AGE: 72 SEX: F ATTEND: Vonda Bell ADM AUTHOR: Elza Nash CNP * ALL edits or amendments must be made on the [employer]/computer document * Subjective Chief complaint: left leg [...] (CKD) Lactated Ringer's (LACTATED RINGERS) 1,000 ML OR EOP ONCALL IV Lidocaine HCl (LIDOCAINE HCL/PF) 2 ML PREOP ONCA LL LOCAL Lidocaine HCl (LIDOCAINE HCL/PF) 2 ML PREOP ONCA LL LOCAL Sodium Chloride (SODIUM CHLORIDE 0.9%) 500 ML OR EOP ONCALL IV Sodium Chloride (SODIUM CHLORIDE 0.9%) 500 ML OR EOP ONCALL IV Sodium Chloride (SODIUM CHLORIDE 0.9%) 1,000 ML PREOP ONCALL IV Sodium Chloride (SODIUM CHLORIDE) 5 ML ASDIR PRN IV Sodium Chloride (SODIUM CHLORIDE) 10 ML ASDIR OR N IV Sodium Chloride (SODIUM CHLORIDE 0.9%) [...] peripheral pulse ( left foot), no edema Neuro/REHAB TECH: alert, normal speech Skin: dry, intact, normal [...] (8.0 - 10.5 mg/dL) 8.7 Laboratory Tests 04/145 Hematology WBC (4.5 - 11.0 x10 3/uL) [...] % (Auto) (14.0 - 32.0 %) 22.2 Atlantic % (Auto) (4.8 - 9.0 %) 7.7 Eos % (Auto) (0.3 - 3.7 %) 1.7 Baso % (Auto) (0.0 - 2.0 %) 0.7 Neut # (Auto) (2.0 - 7.6 x10 3/uL) 7.31 Lymph # (Auto) (1.0 - 3.8 x10 3/uL) 2.41 Atlantic # (Auto) (0.1 - 0.8 x10 3/uL) [...] Signed by Whit Villareal MD on at 9485 RPT #:[id number] END OF REPORT 2022-04-13 17:04:00-00:00 [facility] ([facility]) Hospitalist Progress Note REPORT#:[id number] REPORT STATUS: Signed DATE:04/13/22 TIME: 1704 PATIENT: MANJIT NESS UNIT #: [id number] ROOM/BED: 3345-1 : 48 AGE: 72 SEX: F ATTEND: Vonda Bell ADM AUTHOR: Vonda Bell MD * ALL edits or amendments must be made on the [employer]/computer document * Subjective Chief complaint: she complaint [...] Hydralazine HCl (APRESOLINE) 5 MG PACU Q10MIN P RN PRN IV (DC) Hydrocodone Bitart/Acetaminophen (NORCO 5/325) 1 TAB PACU ONCE PO (DC) Hydromorphone HCl (DILAUDID) 1 MG PACU Q10MIN OR N PRN IV (DC) Hydromorphone HCl (DILAUDID) [...] (CKD) Lactated Ringer's (LACTATED RINGERS) 1,000 ML OR EOP ONCALL IV Lidocaine HCl (LIDOCAINE HCL/PF) 2 ML PREOP ONCA LL LOCAL Lidocaine HCl (LIDOCAINE HCL/PF) 2 ML PREOP ONCA LL LOCAL Sodium Chloride (SODIUM CHLORIDE 0.9%) 500 ML OR EOP ONCALL IV Sodium Chloride (SODIUM CHLORIDE 0.9%) 500 ML OR EOP ONCALL IV Sodium Chloride (SODIUM CHLORIDE 0.9%) 1,000 ML PREOP ONCALL IV Sodium Chloride (SODIUM CHLORIDE) 5 ML ASDIR PRN IV Sodium Chloride (SODIUM CHLORIDE) 10 ML ASDIR OR N IV Sodium Chloride (SODIUM CHLORIDE 0.9%) [...] all, no calf tenderness, no e tk Neuro/REHAB TECH: alert, oriented X 3, CNII-XII intact, normal [...] 0.5 MG PACU Q5MIN PRN PRN 11 0730 DC IV 04/12 1721 Insulin Human [...] Bell MD on 2 at 1713 RPT #:[id number] END OF REPORT 2022-04-13 14:04:00-00:00 [facility] Hospitalist History Physical REPORT#:[id number] REPORT STATUS: Signed DATE:04/13/22 TIME: 1404 PATIENT: MANJIT NESS UNIT #: [id number] ROOM/BED: [place] [address] : 48 AGE: 72 SEX: F ATTEND: Vonda Bell MD ADM AUTHOR: Vonda Bell MD * ALL edits or amendments must be made on the [employer]/[place] document * See Addendum History of Present [...] 04/13 1548 O2 Delivery Room air 04/13 154 Temp 36.6 04/13 1548 Pulse 69 04/13 [...] all, no calf tenderness, no e tk Neuro/REHAB TECH: alert, oriented X 3, CNII-XII intact, normal [...] % (Auto) (14.0 - 32.0 %) 29.8 Atlantic % (Auto) (4.8 - 9.0 %) 7.3 Eos % (Auto) (0.3 - 3.7 %) 2.4 Baso % (Auto) (0.0 - 2.0 %) 1.6 Neut # (Auto) (2.0 - 7.6 x10 3/uL) 4.84 Lymph # (Auto) (1.0 - 3.8 x10 3/uL) 2.46 Atlantic # (Auto) (0.1 - 0.8 x10 3/uL) [...] attest that the foregoing medication list in [facility] medical record is true, accurate, and complete to the best of my knowled ge. Electronically Signed by Vonda Bell MD on 2 at 1708 Addendum 1: 04/13/22 1711 by Vonda Bell MD note delay enter due to [employer] down yesterday Electronically Signed by Vonda Bell MD on 2 at 1711 RPT #:[id number] END OF REPORT 2022-04-13 13:27:00-00:[address] [facility] Cardiology Progress Note REPORT#:[id number] REPORT STATUS: Signed DATE:04/13/22 TIME: 1327 PATIENT: MANJIT NESS UNIT #: [id number] ROOM/BED: 3345-1 : 48 AGE: 72 SEX: F ATTEND: Vonda Bell ADM AUTHOR: Elza Nash PATIENT RESOURCE SPECIALIST * ALL edits or amendments must be made on the el [employer]/computer document * Subjective Chief complaint: left leg [...] Hydralazine HCl (APRESOLINE) 5 MG PACU Q10MIN OR N PRN IV (DC) Hydrocodone Bitart/Acetaminophen (NORCO 5/325) 1 TAB PACU ONCE PO (DC) Hydromorphone HCl (DILAUDID) 1 MG PACU Q10MIN OR N PRN IV (DC) Hydromorphone HCl (DILAUDID) [...] (CKD) Lactated Ringer's (LACTATED RINGERS) 1,000 ML OR EOP ONCALL IV Lidocaine HCl (LIDOCAINE HCL/PF) 2 ML PREOP ONCA LL LOCAL Lidocaine HCl (LIDOCAINE HCL/PF) 2 ML PREOP ONCA LL LOCAL Sodium Chloride (SODIUM CHLORIDE 0.9%) 500 ML OR EOP ONCALL IV Sodium Chloride (SODIUM CHLORIDE 0.9%) 500 ML OR EOP ONCALL IV Sodium Chloride (SODIUM CHLORIDE 0.9%) 1,000 ML PREOP ONCALL IV Sodium Chloride (SODIUM CHLORIDE) 5 ML ASDIR PRN IV Sodium Chloride (SODIUM CHLORIDE) 10 ML ASDIR OR N IV Sodium Chloride (SODIUM CHLORIDE 0.9%) [...] peripheral pulse ( left foot), no edema Neuro/REHAB TECH: alert, normal speech Skin: dry, intact, normal color Psychiatry: normal affect, normal mood Results Findings/Data: Laboratory Tests 04/13 04/13 04/12 04/12 04/12 1106 0711 1945 1945 1537 Chemistry POC Glucose (70 - 110 MG/DL) 85 90 143 H 143 H 171 H Results: labs reviewed, vital signs reviewed, [facility] personally rev'd Telemetry Interpretation: sinus rhythm [...] Whit Villareal MD on at 1439 RPT #:[id number] END OF REPORT 2022-04-13 08:59:00-00:[address] [facility] Cardiology Consultation REPORT#:[id number] REPORT STATUS: Signed DATE:04/13/22 TIME: 0859 PATIENT: MANJIT NESS UNIT #: [id number] ROOM/BED: [place] [address] : 48 AGE: 72 SEX: F ATTEND: Vonda Bell ADM AUTHOR: Elza Nash ACNP * ALL edits or amendments must be made on the el [employer]/computer document * History of Present Illness HPI [...] mellitus, Hypertension, Dyslipidemia, Periph arterial disease, Prior MA. Denies: Atrial fibrillation, Congestive heart failure. Past [...] low FiO2 Mean Ox Delivery Rate 04/13 716 36.6 88 20 141/61 87.5 95 Room air 04/12 194 36.3 73 18 149/67 94.1 100 04/12 [...] (DC) Fentanyl Citrate (SUBLIMAZE) 0 .STK-MED ONE .RO [place] (DC) Fentanyl Citrate (SUBLIMAZE) 100 MCG PACU Q10MIN PRN PRN IV (DC) Fentanyl Citrate (SUBLIMAZE) 50 MCG PACU Q10MIN PRN PRN IV (DC) Hydralazine HCl (APRESOLINE) 5 MG PACU Q10MIN OR N PRN IV (DC) Hydrocodone Bitart/Acetaminophen (NORCO 5/325) 1 TAB PACU ONCE PO (DC) Hydromorphone HCl (DILAUDID) 1 MG PACU Q10MIN OR N PRN IV (DC) Hydromorphone HCl (DILAUDID) [...] (CKD) Lactated Ringer's (LACTATED RINGERS) 1,000 ML OR EOP ONCALL IV Lidocaine HCl (LIDOCAINE HCL/PF) 2 ML PREOP ONCA LL LOCAL Lidocaine HCl (LIDOCAINE HCL/PF) 2 ML PREOP ONCA LL LOCAL Sodium Chloride (SODIUM CHLORIDE 0.9%) 500 ML OR EOP ONCALL IV Sodium Chloride (SODIUM CHLORIDE 0.9%) 500 ML OR EOP ONCALL IV Sodium Chloride (SODIUM CHLORIDE 0.9%) 1,000 ML PREOP ONCALL IV Sodium Chloride (SODIUM CHLORIDE) 5 ML ASDIR PRN IV Sodium Chloride (SODIUM CHLORIDE) 10 ML ASDIR OR N IV Sodium Chloride (SODIUM CHLORIDE 0.9%) [...] peripheral pulse ( left foot), no edema Neuro/REHAB TECH: alert, normal speech Psychiatry: normal affect, normal mood Results Findings/Data: Laboratory Tests 04/13 04/12 04/12 04/12 04/12 0711 1945 1945 1537 1150 Chemistry POC Glucose (70 - 110 MG/DL) 90 143 H 143 H 171 H 161 H Laboratory Tests 04/12 921 Coagulation Activated Coag Time (SECONDS) 224 Results: no new labs, vital signs reviewed, [facility] personally rev'd EKG Interpretation: normal sinus rhythm [...] by Whit Villareal MD on at 1439 [facility] #:[id number] END OF REPORT 2022-04-12 09:37:00-00:00 [id number] [place] [address] PATIENT NAME: MANJIT NESS ADMIT DATE: 2 ACCOUNT NO: [id number] ROOM NO: [facility] AGE: 72 REPORT TYPE: OPERATIVE REPORT SEX: F ADMITTING PHYSICIAN:Vonda Bell MD ATTENDING PHYSICIAN:Vonda Bell MD OPERATION DATE: 04/12/2022 PREOPERATIVE DIAGNOSIS: POSTOPERATIVE DIAGNOSIS: PROCEDURE PERFORMED: 1. Peripheral angiogram. 2. Angioplasty of totally occluded left SFA sten t. I used a 6 x 150 mm balloon. SURGEON: Manny Grey MD LOG YARD DERRICK OPERATOR: ANESTHESIA: INDICATIONS: Severe peripheral vascular disease with severe pain. ACCESS: Right femoral artery, 6-Swiss closed wi th manual pressure. PROCEDURE IN [...] a m icropuncture kit and placed a 6-Swiss [place] sheath and took a crossover sheath into the distal aorta with a [place] Advantage wire acros s to the other side and then placed a 6-Swiss 45 cm destination sheath. Before the angiogram, there was a ROLFER of the SFA on the left. Using a [place] Advantage wire and NaviCross was able to [...] we will plan for her to consult [facility] Vascular Surgery on further action plan [...] Date Transcribed: 04/12/2022 11:44:37 /BHARATHI Receipt ID: [id number] Authenticated by Manny Grey MD On 05/10/2022 01:19:24 PM Electronically Signed by Manny Grey MD on at 0119 PATIENT NAME: MANJIT NESS [id number] 2022-04-11 11:13:00-00:00 1620-2526 [place] [address] PATIENT NAME: MANJIT NESS ADMIT DATE: ACCOUNT NO: [id number] ROOM NO: AGE: 72 REPORT TYPE: eELECTROCARDIOGRAM REPORT SEX: F ADMITTING PHYSICIAN: ATTENDING PHYSICIAN:Manny Grey MD Order: [id number] Test Reason : PRE OP Test Date/Time [...] PATIENT NAME: MANJIT NESS [id number] 2021-11-30 13:07:00-00:00 [id number] [place] [address] PATIENT NAME: MANJIT NESS ADMIT DATE: 2 ACCOUNT NO: [id number] ROOM NO: AGE: 72 REPORT TYPE: CARDIAC CATHETERIZATION REPORT SEX: F ADMITTING PHYSICIAN: ATTENDING PHYSICIAN:Manny Grey MD PROCEDURE DATE: 11/30/2021 PROCEDURE PERFORMED: 1. Peripheral angiogram. 2. Attempt of a percutaneous intervention on the totally occluded right SFA that failed. ACCESS: Left femoral artery, 6-Swiss closed wit h Mynx closure device. COMPLICATIONS: [...] guidance fluoroscopy and micropuncture kit and placed 6-Swiss [place] sheath. The entrance point was above the stent and the femoral artery. Then, I took an Omniflush cathet er into the aorta and using [place] Advantage, crossed into the right side and placed the wire in the left femoral artery and then took a Destinati on sheath and exchange of the 6-Swiss [place] sheath and did john ogram and the right SFA is occluded ostially and it is a long ROLFER. It reconstitutes above th e knee in [...] for a retrograde attempt to open the ROLFER. CONCLUSION: ROLFER of the right SFA ostially all th e way to the mid thigh. PLAN: We will reschedule the patient to reattemp t this percutaneous intervention with a retrograde approach and anes thesia to be available. Dictated By: Manny Grey MD WT: CATH:DIANA/LUCA/MICHEL PATIENT NAME: MANJIT NESS [id number] Conf#: [id number]#: [id number] Authenticated by Manny Grey MD On 04/05/2022 09:55:39 AM Electronically Signed by Manny Grey MD on at 0955 PATIENT NAME: MANJIT NESS 8713 2021-11-28 15:16:00-00:00 [id number] [place] [address] PATIENT NAME: MANJIT NESS ADMIT DATE: ACCOUNT NO: [id number] ROOM NO: AGE: 71 REPORT TYPE: eELECTROCARDIOGRAM REPORT SEX: F ADMITTING PHYSICIAN: ATTENDING PHYSICIAN:Manny Grey MD Order: [id number] Test Reason : PREOP Test Date/Time Stamp: SunNov 28 2021 15:16:26 Blood Pressure : / mmHG Vent. Rate : 072 BPM Atrial Rate : 072 BPM P-R Int : 108 ms QRS Dur : 086 ms QT Int : 378 ms P-R-T Axes : -09 071 029 degree s QTc Int : 413 ms Sinus rhythm with short OR Abnormal ECG PRE_OP Confirmed by LAMAR PEARCE MD ([id number]) on 11/29/19 22 5:04:47 PM Referred By: Manny Grey Confirmed by:LAMAR PEARCE MD at 1704 PATIENT NAME: MANJIT NESS 8713 2021-04-26 15:41:00-00:00 [facility] ([facility]) Operative Note - Full REPORT#:[id number] REPORT STATUS: Signed DATE:04/26/21 TIME: 1541 PATIENT: MANJIT NESS UNIT #: [id number] ROOM/BED: : 48 AGE: 71 SEX: F ATTEND: Roberto Ghosh MD ADM AUTHOR: Rayne Ghosh MD * ALL edits or amendments must be made on the [employer]/computer document * Operative Report ORM Surgeries: Surgery Date and Time: 04/26/2021 0915 Primary Procedure: LLE ARTERIOGRAM, POSSIBLE AN GIOPLASTY, Start date: 04/26/21 Start time: 1330 Pre-procedure diagnosis: 1. Bilateral superficial femoral artery thrombos is 2. Aortoiliac disease with atherosclerosis of th e abdominal aorta 3. Bilateral lower extremity rest pain left wors e than right with atherosclerosis of [place] arteries Post-procedure diagnosis: same Procedures performed: 1. Percutaneous ultrasound-guided active access right common femoral artery [place] images [place] record 41370 2. Abdominal aortogram 74219 3. Left lower extremity unilateral arteriogram 7 8510 4. Placement of left superficial femoral and popliteal artery stent graft 5 mm x 25 cm Viabahn and 6 mm x 10 cm Viabahn's with post angioplasty 27306 5. Percutaneous pharmacomechanical thrombectomy with 6 Cat Penumbra device of left popliteal artery for possible thrombus 3718 4 6. Right external iliac artery drug-coated ballo on angioplasty 43632 Technique/Procedure: The patient was brought into the operating room prepped and draped in usual sterile manner. Percutaneous ultrasound-guided a ctive access was obtained to right common femoral artery microcatheter system and exchanged over a Glidewire to a 6 Swiss 10 cm sheath. An Omni Flush cath [...] ded superficial femoral-popliteal arteries and the 6 Swiss 90 cm sheath was advanced to the [...] y occlusion. Primary Surgeon: Dr. Rayne Ghosh Oil Fire Specialist(s): none Anesthesia: general anesthesia Operative findings: Abdominal [...] common femoral artery is patent with a half-way ed left profunda femoris occlusion by previous [...] thrombus Implant(s): stent grafts at 1546 RPT #:[id number] END OF REPORT 2021-04-26 15:32:00-00:00 [facility] Brief Op Note REPORT#:[id number] REPORT STATUS: Signed DATE:04/26/21 TIME: 1532 PATIENT: MANJIT NESS UNIT #: [id number] ROOM/BED: : 48 AGE: 71 SEX: F ATTEND: Roberto Ghosh MD ADM AUTHOR: Rayne Ghosh MD * ALL edits or amendments must be made on the el [employer]/computer document * Op/Inv Proc Note - Brief ORM Surgeries: Surgery Date and Time: 04/26/2021 0915 Proposed Primary Procedure: LLE ARTERIOGRAM, PO SSIBLE ANGIOPLASTY, Pre-procedure diagnosis: 1. Bilateral superficial femoral artery thrombos is 2. Aortoiliac disease with atherosclerosis of th e abdominal aorta 3. Bilateral lower extremity rest pain left wors e than right with atherosclerosis of [place] arteries Post-procedure diagnosis: same as pre procedure dx Procedures performed: 1. Percutaneous ultrasound-guided active access right common femoral artery with images maintained for record 12071 2. Abdominal aortogram 13492 3. Left lower extremity unilateral arteriogram 7 2734 4. Placement of left superficial femoral and popliteal artery stent graft 5 mm x 25 cm Viabahn and 6 mm x 10 cm Viabahn's with post angioplasty 44828 5. Percutaneous pharmacomechanical thrombectomy with 6 Cat Penumbra device of left popliteal artery for possible thrombus 3718 4 6. Right external iliac artery drug-coated ballo on angioplasty 39955 Primary Surgeon: Dr. Rayne Ghosh Oil Fire Specialist(s): none Anesthesia: general anesthesia Findings: Abdominal gram [...] common femoral artery is patent with a half-way ed left profunda femoris occlusion by previous [...] in ml's: none Specimens removed/altered: thrombus at 1546 RPT #:[id number] END OF REPORT 2021-04-26 15:27:00-00:00 [facility] ([facility]) Brief Discharge Note w/Med Rec REPORT#:[id number] REPORT STATUS: Signed DATE:04/26/21 TIME: 1527 PATIENT: MANJIT NESS UNIT #: [id number] ROOM/BED: : 48 AGE: 71 SEX: F ATTEND: Roberto Ghosh MD ADM AUTHOR: Rayne Ghosh MD * ALL edits or amendments must be made on the [employer]/computer document * Med Rec Med Rec Discharge [...] up timeframe: In 1-2 weeks at [address] [facility] #:[id number] END OF REPORT 2021-04-25 07:46:00-00:00 [id number] [place] [address] PATIENT NAME: MANJIT NESS ADMIT DATE: ACCOUNT NO: [id number] ROOM NO: AGE: 71 REPORT TYPE: eELECTROCARDIOGRAM REPORT SEX: F ADMITTING PHYSICIAN: ATTENDING PHYSICIAN:Rayne Ghosh MD Order: [id number] Test Reason : PREOP Test Date/Time Stamp: SunApr 25 2021 07:46:58 Blood Pressure : / mmHG Vent. Rate : 056 BPM Atrial Rate : 056 BPM P-R Int : 144 ms QRS Dur : 090 ms QT Int : 452 ms P-R-T Axes : 073 068 076 degree s QTc Int : 436 ms Sinus bradycardia Abnormal ECG PRE_OP Confirmed by LAMAR PEARCE MD ([id number]) on 021 6:12:46 PM Referred By: Rayne Ghosh Confirmed by:LAMAR PEARCE MD at [id number] PATIENT NAME: MANJIT NESS [id number]
[2022-12-29] MEDS ORDERED: ONDANSETRON 4 MG/2 ML VIAL ONE (10:39)
[2022-12-29] MEDS ORDERED: MORPHINE 2 MG/ML SYR ONE (10:39)
[2022-12-29 10:41] LABS: Absolute Lymphocytes (CBC) 2.7 K/uL (0.7-4.9); Hematocrit 39.4 % (36.0-45.0); Lymphocytes % 30.4 % (15.3-44.8); MCV 84.9 fL (80-100); MPV 7.4 fL (7.6-11.3); Platelets 434 thou/uL (152-406); RBC Red Blood Cell Count 4.64 M/uL (3.86-4.86)
[2022-12-29 10:50] LABS: Potassium 4.1 mEq/L (3.5-5.1)
--- NOTE | 2022-12-29 11:04 | RAD REPORT ---
EXAM DESCRIPTION: US - Lower Extremity Artery Uni Ltd - 12/29/2022 10:48 am CLINICAL HISTORY: Leg pain COMPARISON: None FINDINGS: Color Doppler, grayscale, and spectral analysis was performed. Stent identified in the common femoral artery, SFA, and popliteal artery. No flow identified within t he stent. Monophasic flow is present within the posterior tibial and dorsalis pedis artery. IMPRESSION: Left common femoral, superficial femoral, popliteal artery stent is occluded. Monophasic flow in the posterior tibial and dorsalis pedis arteries..
[2022-12-29] MEDS ORDERED: MORPHINE 4 MG/ML SYR ONE (11:11)
--- NOTE | 2022-12-29 11:17 | RAD REPORT ---
EXAM DESCRIPTION: RAD - Foot Left 3 View - 12/29/2022 11:10 am CLINICAL HISTORY: PAIN COMPARISON: Foot Left 3 View dated 09/07/2022 FINDINGS/IMPRESSION: Motion artifact limits the fine bony detail. No acute fracture. No malalignment . Calcaneal spurring. MRI more sensitive for detection of acute osteomyelitis.
--- NOTE | 2022-12-29 11:26 | EDPHYS ---
Physician Documentation [facility] Name: Mukul Larson Age: 72 yrs Sex: Female : 1950 Arrival Date: 12/29/2022 Time: 09:52 Bed 14 Private MD: ED Physician David Carr HPI: 12/29 10:37 This 72 yrs old Female presents to ER via Wheelchair with complaints of Chest ms3 Pain, Foot Pain. 10:37 72-year-old female with past medical history of anxiety, coronary artery disease, ms3 congestive heart failure, COPD, CVA, diabetes, hyperlipidemia presents for left foot pain that is been ongoing for 7 months. Patient states the pain became excruciating today. Patient states she has been on antibiotics in the past for this and is currently not on antibiotics. Patient states pain is 10/10. Patient denies alleviating or inciting factors. Patient endorses chills. Patient denies fevers, chills, nausea, vomiting.. Historical: - Allergies: 10:05 PENICILLINS; hb - PMHx: 10:05 Anxiety; CAD; CHF; COPD; CVA; Diabetes - NIDDM; High Cholesterol; Hypertension; [place]; hb - PSHx: 10:05 cardiac stent; hb - Immunization history:: Adult Immunizations unknown. - Social history:: Smoking status: Patient reports the use of cigarette tobacco products, smokes one pack cigarettes per day. ROS: 10:37 Neck: Negative for injury, pain, and swelling, Cardiovascular: Negative for chest pain, ms3 and palpitations. Respiratory: Negative for shortness of breath, cough, wheezing, and pleuritic chest pain, Abdomen/GI: Negative for abdominal pain, nausea, vomiting, diarrhea, and constipation, MS/Extremity: Negative for injury and deformity, Skin: Negative for injury, rash, and discoloration, Neuro: Negative for headache, weakness, numbness, tingling. 10:37 Constitutional: Positive for chills. 10:37 All other systems are negative. Exam: 10:37 Constitutional: This is a well developed, well nourished patient who is awake, alert, ms3 and in no acute distress. Head/Face: Normocephalic, atraumatic. Neck: Trachea midline, no cervical lymphadenopathy. Supple, full range of motion without nuchal rigidity, or vertebral point tenderness. No Meningismus. Chest/axilla: Normal chest wall appearance and motion. Nontender with no deformity. Cardiovascular: Regular rate and rhythm with a normal S1 and S2. No gallops, murmurs, or rubs. Normal PMI, no JVD. No pulse deficits. Respiratory: Lungs have equal breath sounds bilaterally, clear to auscultation and percussion. No rales, rhonchi or wheezes noted. No increased work of breathing, no retractions or nasal flaring. Abdomen/GI: Soft, non-tender, with normal bowel sounds. No distension or tympany. No guarding or rebound. No evidence of tenderness throughout. 10:37 Skin: cellulitis, that is severe, confluent, on the left foot, lesion(s), noted, and can be described as ulcerated. Vital Signs: 10:04 BP 193 / 77; Pulse 89; Resp 18; Temp 98(O); Pulse Ox 97% on R/A; Pain 9/10; hb 11:05 BP 221 / 76; Pulse 92; Resp 20; Pulse Ox 94% on R/A; Pain 10/10; me1 11:51 BP 205 / 83; Pulse 106; Resp 20; Pulse Ox 97% on R/A; Pain 10/10; me1 12:48 BP 225 / 106; Pulse 114; Resp 22; Pulse Ox 98% on R/A; Pain 10/10; me1 13:48 BP 213 / 79; Pulse 109; Resp 20; Pulse Ox 95% on R/A; Pain 10/10; me1 14:03 BP 147 / 68; Pulse 99; Resp 18; Pulse Ox 98% on R/A; me1 10:04 Pain Scale: Adult hb 11:05 Pain Scale: Adult me1 11:51 Pain Scale: Adult me1 12:48 Pain Scale: Adult me1 13:48 Pain Scale: Adult me1 MDM: 10:08 Patient medically screened. ms3 11:25 Differential diagnosis: Osteomyelitis vs PVD vs Cellulitis. Data reviewed: vital signs, ms3 nurses notes, lab test result(s), radiologic studies, and as a result, I will admit patient. Consideration of Admission/Observation Patient was admitted/placed on observation. Management of patient was discussed with the following: Hospitalist: Dr Raymundo. Field Property Loss Specialist: Dr Grey. I considered the following discharge prescriptions or medication management in the emergency department Medications were administered in the Emergency Department. See MAR. Independent interpretation of the following test(s) in the Emergency Department EKG: See my EKG interpretation above. Historians other than the Patient: Daughter/Son: Patient's . Counseling: I had a detailed discussion with the patient and/or guardian regarding: the historical points, exam findings, and any diagnostic results supporting the discharge/admit diagnosis, lab results, radiology results, the need for further work-up and treatment in the hospital. ED course: Discussed case with Dr. Grey and he would like patient admitted to the hospital. Discussed case with Dr. Plascencia and he accepts admission.. 12/29 10:11 Order name: CBC with Diff; Complete Time: 10:58 ms3 12/29 10:11 Order name: BMP; Complete Time: 10:58 ms3 12/29 10:14 Order name: CRP; Complete Time: 10:58 ms3 12/29 11:55 Order name: Blood Culture Adult (2) ms3 12/29 13:06 Order name: CBC with Automated Diff EDMS 12/29 13:06 Order name: CBC with Automated Diff EDMS 12/29 13:06 Order name: Comprehensive Metabolic Panel EDMS 12/29 13:06 Order name: Comprehensive Metabolic Panel EDMS 12/29 13:06 Order name: Troponin High Sensitivity EDMS 12/29 13:06 Order name: Troponin High Sensitivity EDMS 12/29 13:06 Order name: Troponin High Sensitivity EDMS 12/29 10:14 Order name: Foot Left 3 View XRAY; Complete Time: 11:17 ms3 12/29 10:15 Order name: US Lower Extremity Artery Uni Ltd; Complete Time: 11:17 ms3 12/29 13:08 Order name: Foot Left Wo Cont EDMS 12/29 13:06 Order name: CONS Physician Consult EDMS 12/29 13:06 Order name: Heart Healthy EDMS Administered Medications: 10:35 Drug: morphine IVP or IV 2 mg Route: IVP; Infused Over: 4 mins; Site: left antecubital; me1 10:50 Follow up: Response: No adverse reaction; Pain is decreased me1 10:35 Drug: Ondansetron IVP 4 mg Route: IVP; Site: left antecubital; me1 11:59 Follow up: Response: No adverse reaction; Nausea is decreased me1 11:06 Drug: morphine IVP or IV 4 mg Route: IVP; Infused Over: 4 mins; Site: left antecubital; me1 11:52 Follow up: Response: No adverse reaction; No change in condition me1 11:57 Follow up: Response: No adverse reaction; Pain is unchanged, physician notified me1 11:57 Drug: Ketorolac IVP 10 mg 10 mg Route: IVP; Site: left antecubital; me1 12:30 Follow up: Response: No adverse reaction; Pain is decreased me1 12:30 Drug: vancoMYCIN IVPB 1 grams Route: IVPB; Infused Over: 2 hrs; Site: left antecubital; me1 Disposition Summary: 12/29/22 11:25 Hospitalization Ordered Hospitalization Status: Inpatient Admission ms3 Provider: Nisreen Raymundo ms3 Location: Telemetry/MedSur (Inpatient) ms3 Condition: Stable ms3 Problem: new ms3 Symptoms: are unchanged ms3 Bed/Room Type: Standard ms3 Room Assignment: 412(12/29/22 14:04) dw Diagnosis - Cellulitis of left lower limb ms3 - Pain in left foot ms3 - Essential (primary) hypertension ms3 Forms: - Medication Reconciliation Form ms3 - SBAR form ms3 Signatures: Dispatcher [employer] Indiana Mccullough RN RN Cassie Garibay RN RN hb Sims, Marcus, DO DO ms3 Melba Gonzalez RN RN me1 Corrections: (The following items were deleted from the chart) 14:00 11:25 ms3 dw 14:04 14:00 411 dw dw
--- NOTE | 2022-12-29 11:26 | ER ---
Nurse's Notes [facility] Name: Mukul Larson Age: 72 yrs Sex: Female : 1950 Arrival Date: 12/29/2022 Time: 09:52 Bed 14 Private MD: Diagnosis: Cellulitis of left lower limb;Pain in left foot;Essential (primary) hypertension Presentation: 12/29 10:04 Chief complaint: Chronic infection to left foot x 7 months, report pain has become hb unbearable. Coronavirus screen: At this time, the client does not indicate any symptoms associated with coronavirus-19. Ebola Screen: No symptoms or risks identified at this time. Initial Sepsis Screen: Does the patient meet any 2 criteria? No. Patient's initial sepsis screen is negative. Does the patient have a suspected source of infection? No. Patient's initial sepsis screen is negative. Risk Assessment: Do you want to hurt yourself or someone else? Patient reports no desire to harm self or others. Onset of symptoms is unknown. 10:04 Method Of Arrival: Wheelchair hb 10:04 Acuity: APOLONIA 3 hb Historical: - Allergies: 10:05 PENICILLINS; hb - PMHx: 10:05 Anxiety; CAD; CHF; COPD; CVA; Diabetes - NIDDM; High Cholesterol; Hypertension; [place]; hb - PSHx: 10:05 cardiac stent; hb - Immunization history:: Adult Immunizations unknown. - Social history:: Smoking status: Patient reports the use of cigarette tobacco products, smokes one pack cigarettes per day. Screenin:35 [facility] ED Fall Risk Assessment (Adult) Impaired Gait Yes (1 pt) Score/Fall Risk Level me1 0 - 2 = Low Risk. Abuse screen: Denies threats or abuse. Nutritional screening: No deficits noted. Tuberculosis screening: No symptoms or risk factors identified. Assessment: 10:08 General: Appears uncomfortable, slender, Behavior is calm, cooperative, appropriate for me1 age, Reports chills for fever for non-healing wound to Left foot that has been present for 6 to 7 months. States she has been told it needs amputated but her heart doctor says it isn't juan at this time as she had a heart attack a few months ago. Pain: Complains of pain in left foot Pain does not radiate. Pain currently is 10 out of 10 on a pain scale. Quality of pain is described as stabbing. Neuro: Level of Consciousness is awake, alert, obeys commands, Oriented to person, place, time, situation. Cardiovascular: Capillary refill Patient's skin is warm and dry. Respiratory: Respiratory effort is even, unlabored, Respiratory pattern is regular, symmetrical. Derm: Reports increased pain that is 10 out of 10 on a pain scale. 10:35 Pain: Pain began pain worsened in the past couple of days but got a lot worse last me1 night. 14:04 Reassessment: No changes from previously documented assessment. Patient and/or family me1 updated on plan of care and expected duration. Pain level reassessed. Patient is alert, oriented x 3, equal unlabored respirations, skin warm/dry/pink. Vital Signs: 10:04 BP 193 / 77; Pulse 89; Resp 18; Temp 98(O); Pulse Ox 97% on R/A; Pain 9/10; hb 11:05 BP 221 / 76; Pulse 92; Resp 20; Pulse Ox 94% on R/A; Pain 10/10; me1 11:51 BP 205 / 83; Pulse 106; Resp 20; Pulse Ox 97% on R/A; Pain 10/10; me1 12:48 BP 225 / 106; Pulse 114; Resp 22; Pulse Ox 98% on R/A; Pain 10/10; me1 13:48 BP 213 / 79; Pulse 109; Resp 20; Pulse Ox 95% on R/A; Pain 10/10; me1 14:03 BP 147 / 68; Pulse 99; Resp 18; Pulse Ox 98% on R/A; me1 10:04 Pain Scale: Adult hb 11:05 Pain Scale: Adult me1 11:51 Pain Scale: Adult me1 12:48 Pain Scale: Adult me1 13:48 Pain Scale: Adult me1 ED Course: 09:54 Patient arrived in ED. ts1 09:59 Melba Gonzalez, CONCEPCIÓN is Primary Nurse. me1 10:00 David Carr DO is Attending Physician. ms3 10:05 Triage completed. hb 10:05 Arm band placed on. hb 10:27 BMP Sent. me1 10:27 CBC with Diff Sent. me1 10:35 Patient has correct armband on for positive identification. Fall risk band placed. Bed me1 in low position. Call light in reach. Side rails up X2. Provided Education on: POC, verbalized understanding. . Client placed on continuous cardiac and pulse oximetry monitoring. NIBP monitoring applied. Pulse ox on. 10:35 No provider procedures requiring assistance completed. Inserted saline lock: 20 gauge me1 in left antecubital area, using aseptic technique. Patient maintains SpO2 saturation greater than 95% on room air. 10:50 US Lower Extremity Artery Uni Ltd In Process Unspecified. EDMS 11:12 Foot Left 3 View XRAY In Process Unspecified. EDMS 11:25 Nisreen Raymundo MD is Hospitalizing Provider. ms3 14:28 Blood Culture Adult (2) Sent. me1 14:49 Report given to CONCEPCIÓN Cheng. Informed Skylar that the patient is in CT and will be me1 brought up as soon as she returns, verbalized understanding. 15:42 Patient admitted, IV remains in place. me1 Administered Medications: 10:35 Drug: morphine IVP or IV 2 mg Route: IVP; Infused Over: 4 mins; Site: left antecubital; me1 10:50 Follow up: Response: No adverse reaction; Pain is decreased me1 10:35 Drug: Ondansetron IVP 4 mg Route: IVP; Site: left antecubital; me1 11:59 Follow up: Response: No adverse reaction; Nausea is decreased me1 11:06 Drug: morphine IVP or IV 4 mg Route: IVP; Infused Over: 4 mins; Site: left antecubital; me1 11:52 Follow up: Response: No adverse reaction; No change in condition me1 11:57 Follow up: Response: No adverse reaction; Pain is unchanged, physician notified me1 11:57 Drug: Ketorolac IVP 10 mg 10 mg Route: IVP; Site: left antecubital; me1 12:30 Follow up: Response: No adverse reaction; Pain is decreased me1 12:30 Drug: vancoMYCIN IVPB 1 grams Route: IVPB; Infused Over: 2 hrs; Site: left antecubital; me1 Medication: 10:35 VIS not applicable for this client. me1 Outcome: 11:25 Decision to Hospitalize by Provider. ms3 15:41 Admitted to Med/surg accompanied by nurse, via wheelchair, with chart, Report called to me1 CONCEPCIÓN Cheng 15:42 Condition: stable me1 15:42 Patient left the ED. me1 Signatures: Dispatcher [employer] EDMS Cassie Garibay RN RN David Carr DO DO ms3 Seble Elizabeth, ELLIOTT PAS ts1 Melba Gonzalez RN RN me1
[2022-12-29] MEDS ORDERED: KETOROLAC 30 MG/ML INJ ONE (12:05)
[2022-12-29] MEDS ORDERED: VANCOMYCIN 1 GM/VIAL ONE (12:36)
[2022-12-29] MEDS ORDERED: NA CHLORIDE 0.9% 250 ML ONE (12:36)
[2022-12-29] MEDS ORDERED: ACETAMINOPHEN 500 MG TAB PO PRN (13:02)
[2022-12-29] MEDS: MORPHINE 2 MG/ML SYR IV PRN ×2 (16:17→19:54)
[2022-12-29] MEDS: NA CHLORIDE 0.9% 1,000 ML IV SCH (16:18)
--- NOTE | 2022-12-29 16:29 | RAD REPORT ---
EXAM DESCRIPTION: MRI - Foot Left Wo Cont - 12/29/2022 3:02 pm CLINICAL HISTORY: Left foot pain and swelling COMPARISON: X-ray December 29, 2022 TECHNIQUE: Axial, sagittal and coronal magnetic resonance imaging left foot FINDINGS: Images are degraded by patient motion artifact. Small area of abnormal signal involves the first metatarsal head. No additional clear areas of abnormal signal within the bones is noted. Diffuse edema within predominantly dorsal subcutaneous tissues probably a cellulitis. No soft tissue abscess seen IMPRESSION: Images are degraded by patient motion artifact Small area of abnormal signal first metatarsal head could be degenerative or indicate osteomyelitis a nd should be correlated clinically Cellulitis
[2022-12-29] MEDS ORDERED: GLUCAGON 1 MG/VIAL IM PRN (16:53)
[2022-12-29] MEDS ORDERED: D10W 250 ML BAG IV PRN (16:53)
[2022-12-29] MEDS: NICOTINE 21 MG/PAT TD SCH (19:54)
[2022-12-29] MEDS: INSULIN -REGULAR HUMAN 50 UNIT/0.5 ML ML SQ SCH (19:56)
--- NOTE | 2022-12-29 20:27 | CON ---
Date of Consultation: 12/29/2022 Reason For Consultation: Peripheral vascular disease. History Of Present Illness: This is a 72-year-old female, very well known to me, has severe peripher al vascular disease, congestive heart failure, COPD, diabetes, hypertension, coronary artery disease, active smoker, heavy smoker. She came in with significant pain, swelling, and redness of the right foot especially in the toes with pus drainage and no fever. Feels generally very weak. Past Medical History: As outlined above in the HPI. Medications: Refer to reconciliation sheet for detailed list. Allergies: PENICILLIN. Family History: No premature coronary artery disease or cancer. Social History: She is an active smoker, heavy smoker. Does not drink or use any drugs. Review of Systems: All systems reviewed. They were negative except as mentioned in HPI. Physical Examination: Vital Signs: Reviewed. Head and Neck: Pupils are equal, reactive to light. Intact eye movements. No JVD. No cervical lym phadenopathy. Neck is supple. Thyroid is not enlarged. Lungs: Clear to auscultation bilaterally. No rhonchi, wheezing, or crackles. No accessory muscle u se. Heart: Regular rate and rhythm. No extra sounds. Abdomen: Soft, nontender. Bowel sounds positive. No organomegaly. No masses or hernia. No rigidi ty or rebound. Extremities: No clubbing or cyanosis, but there is a significant erythema with local tenderness and warmth of the right foot, especially all the toes with pus drainage. Neurologic: Alert, awake, oriented x3. No acute focal deficits appreciated. Investigations: Labs were reviewed. Assessment And Recommendations: 1.Right foot cellulitis, likely there is osteomyelitis. She has severe diffuse peripheral vascular disease, not amenable to intervention. Recommend start IV antibiotics and if this does not heal, the n patient might require [id number] amputation, much likely is going to be required. 2.Hypertension. Blood pressure is controlled. 3.Active smoker. Patient was counseled in detail to quit smoking as she has severe peripheral vascu lar disease. 4.Peripheral vascular disease, severe and diffuse and not amenable to intervention. Likely she will require amputation for the current foot infection. I will monitor the patient while she is in the ospital. SR/MODL Voice ID: [id number] Report ID: [id number]
[2022-12-29] MEDS: ZOLPIDEM TARTRATE 5 MG TABLET PO PRN (21:20)
[2022-12-29] MEDS: HYDRALAZINE HCL 20 MG/ML VIAL IV PRN (21:20)
[2022-12-29] MEDS: HYDROCODONE/APAP 5/325 MG TAB PO PRN (22:54)
[2022-12-30] MEDS: MORPHINE 2 MG/ML SYR IV PRN ×5 (00:50→22:13)
[2022-12-30] MEDS: HYDROCODONE/APAP 5/325 MG TAB PO PRN ×2 (04:20→17:35)
[2022-12-30] MEDS: HYDRALAZINE HCL 20 MG/ML VIAL IV PRN ×2 (04:21→09:14)
[2022-12-30] MEDS: NA CHLORIDE 0.9% 1,000 ML IV SCH ×2 (05:27→17:35)
[2022-12-30] MEDS: INSULIN -REGULAR HUMAN 50 UNIT/0.5 ML ML SQ SCH ×4 (07:30→19:36)
--- NOTE | 2022-12-30 08:19 | P.HP ---
Certification for Inpatient Patient admitted to: Inpatient With expected LOS: >2 Midnights Patient will require the following post-hospital care: None Practitioner: I am a practitioner with admitting privileges, knowledge of patient current condition, hospital course, and medical plan of care. Services: Services provided to patient in accordance with Admission requirements found in Title 42 Section 412.3 of the Code of Federal Regulations Patient History Date of Service: 12/29/22 Reason for admission: Severe peripheral arterial disease with osteomyelitis History of Present Illness: Patient is a 72-year-old female who came to the hospital with severe peripheral arterial disease. patient has a history of stent placement and according to Cardiology patient's stent has been stenotic and they tried to work with reopening it but it has been unsuccessful. Patient unlikely to be able to get distal stent reopen. Patient will need MRI of the foot to evaluate for infection. The foot is warm and tender. Will start patient on IV antibiotics and general surgery consultation. Allergies Penicillins Allergy (Verified 11/02/21 13:48) Itching Home Medications: Lisinopril 10 mg PO DAILY 05/07/15 Metformin HCl 1,000 mg PO BID 05/07/15 Ropinirole HCl 4 mg PO TID 05/07/15 Atorvastatin Calcium [Lipitor] 40 mg PO DAILY 03/04/21 Fluticasone [Flovent Hfa 110*] 2 appl IH PRN 03/04/21 Albuterol Neb [Proventil 0.083% Neb Soln] 2.5 mg NEB Q6HP PRN #60 amp 10/08/22 Hydrocodone 10/APAP 325 [Marion 10/325] 1 tab PO Q6H PRN #30 tab 10/08/22 ALPRAZolam [Xanax*] 0.5 mg PO BID 10/12/22 Pantoprazole [Protonix Tab*] 40 mg PO DAILY 10/12/22 Rivaroxaban [Xarelto*] 15 mg PO DAILY 10/12/22 Clopidogrel Bisulfate [Plavix*] 75 mg PO DAILY #30 tab 10/13/22 Metoprolol Tartrate [Lopressor*] 12.5 mg PO BID 6AM 6PM #30 tab 10/13/22 Torsemide [Demadex*] 20 mg PO DAILY #30 tab 10/13/22 lisinopriL [Lisinopril] 5 mg PO DAILY #30 tab 10/13/22 - Past Medical/Surgical History Has patient received pneumonia vaccine in the past: Yes Diabetic: Yes -: CVAx2 -: CAD/ [place] -: COPD/ SubPleural Nodule -: Diastolic CHF -: NIDDM -: HTN -: Hyperlipidemia -: Anxiety -: CKD III with Proteinuria -: Heart stents -: Gisele -: Tubal ligation -: L neck sx Psychosocial/ Personal History: patient is retired. lives at home with family. - Family History Mother Medical History: Heart disease, Diabetes - Social History Smoking Status: Current every day smoker Alcohol use: No CD- Drugs: No Caffeine use: Yes Place of Residence: Home Review of Systems 10-point ROS is otherwise unremarkable Physical Examination - Vital Signs Temperature: 97.7 F Blood Pressure: 147/65 Pulse: 101 Respirations: 18 Pulse Ox (%): 97 - Physical Exam General: Alert, In no apparent distress, Oriented x3 HEENT: Atraumatic, PERRLA, Mucous membr. moist/pink, EOMI, Sclerae nonicteric Neck: Supple, 2+ carotid pulse no bruit, No LAD, Without JVD or thyroid abnormality Respiratory: Clear to auscultation bilaterally, Normal air movement Cardiovascular: Regular rate/rhythm, Normal S1 S2 Capillary refill: >2 Seconds Gastrointestinal: Normal bowel sounds, No tenderness Musculoskeletal: No tenderness Integumentary: Tenderness/swelling, Erythema Neurological: Normal gait, Normal speech, Normal strength at 5/5 x4 extr, Normal tone, Sensation intact, Cranial nerves 3-12 intact, Normal affect Lymphatics: No axilla or inguinal lymphadenopathy - Studies Laboratory Data (last 24 hrs) 12/29/22 12/29/22 10:20 10:20 WBC 8.90 Hgb 13.1 Hct 39.4 Plt Count 434 H Sodium 135 L Potassium 4.1 BUN 18 Creatinine 1.10 H Glucose 139 H Microbiology Data (last 24 hrs): 12/29/22 12:28 Blood - Blood Anaerobic Blood Culture - Final 12/29/22 12:20 Blood - Blood Anaerobic Blood Culture - Final Assessment & Plan - Problems (Diagnosis) (1) Occlusion of stent of peripheral artery Current Visit: Yes Status: Acute (2) Osteomyelitis Current Visit: Yes Status: Acute (3) H/O right coronary artery stent placement Current Visit: No Status: Acute (4) PAD (peripheral artery disease) Current Visit: No Status: Acute (5) Anemia Onset Date: 05/07/15 Current Visit: No Status: Chronic Qualifiers: Anemia type: other cause Other causes of anemia: chronic disease, other Qualified Code(s): D63.8 - Anemia in other chronic diseases classified elsewhere (6) COPD (chronic obstructive pulmonary disease) Current Visit: No Status: Chronic Qualifiers: (7) Diabetes mellitus Current Visit: No Status: Chronic Qualifiers: (8) Hypertension Current Visit: No Status: Chronic Qualifiers: - Plan Plan: 1. IV antibiotics; PICC line placement 2. Cardiology consultation and Surgery consultation; outpt follow-up with surgery 3. Anti-platelet and statin therapy 5. Nicotine patch 6. Strict blood pressure control 7. Gi DVT prophylaxis Discharge Plan: Home Plan to discharge in: Greater than 2 days - Advance Directives Does patient have a Living Will: No Does patient have a Durable POA for Healthcare: No - Code Status/Comfort Care Code Status Assessed: Yes Code Status: Full Code Critical Care: No Time Spent Managing PTS Care (In Minutes): 35
[2022-12-30] MEDS: NICOTINE 21 MG/PAT TD SCH (09:00)
[2022-12-30 14:11] LABS: Hematocrit 40.6 % (36.0-45.0); Lymphocytes % 28.4 % (15.3-44.8); MCV 86.4 fL (80-100); MPV 7.2 fL (7.6-11.3); Platelets 377 thou/uL (152-406)
[2022-12-30 14:20] LABS: Albumin 3.1 g/dL (3.4-5.0); Bilirubin Total 0.3 mg/dL (0.2-1.0); Potassium 3.9 mEq/L (3.5-5.1); Protein, Total 6.7 g/dL (6.4-8.2)
--- NOTE | 2022-12-30 14:24 | CON ---
Date of Consultation: 12/30/2022 Brief History Of Present Illness: The patient is a 72-year-old woman who presents to the ER via wheelchair with complaints of predominantly foot pain and some mild chest pain. She has a histo ry of anxiety, coronary artery disease, congestive heart failure, COPD, CVA, prediabetes, hyperlipide haim, significant peripheral arterial disease, peripheral vascular disease, who has had a stent placed in her left lower extremity for revascularization approximately 5 months ago. She states that for a lmost 7 months she has had ongoing pain in the left lower extremity for which she had a revasculariza tion procedure, which did not significantly improve her symptoms and she continued to have worsening pain in this area. She now has discoloration, redness, and open wounds down the lateral aspect of he r left foot. Allergies: TO PENICILLIN. Past Medical History: Anxiety, coronary artery disease, CHF, COPD, CVA, diabetes, high cholesterol, hypertension, myocardial infarction, peripheral arterial disease, peripheral vascular disease. Past Surgical History: Includes peripheral vascular stents and coronary artery stents. Social History: She smokes cigarettes and tobacco actively pack per day. She has been doing this fo r many years and continues to smoke despite recommendations to stop. She denies recreational drug us e or alcohol use. Review of Systems: A 10-point review of systems other than HPI, denies. Physical Examination: General: She is awake, alert, and oriented. Psychiatric: She is appropriate, conversive. HEENT: Normocephalic. Sclerae anicteric. Mucous membranes moist. Oropharynx clear. Neck: Supple without JVD. Chest: Expansion and excursion. Cardiovascular: Regular rate and rhythm. Pulmonary: Clear to auscultation bilaterally. Abdomen: Soft. Extremities: Focused examination of the left lower extremity shows cellulitis and coolness of bilate ral lower feet. Though focused on the left lower extremity, she has cellulitis and significant nail fungal changes. She has 2 small open wounds approximately less than a centimeter on the lateral aspe ct of the foot with clear drainage at this point. Her foot is tender to palpation and the cellulitis extends down the midfoot. This hypervascularity to the veins of the left lower extremity. There is evidence of peripheral arterial disease with discoloration and loss of hair as well. Laboratory Data: She had a laboratory exam, which revealed a white blood cell count of 8.9, hemoglob in is 13.1, hematocrit 39.4, platelet count is 434, neutrophils were 61%. Her sodium 135, potassium 4.1, chloride 103, carbon dioxide is 25, BUN 18, creatinine 1.1, glucose is 101. CRP is 17.4. She h ad imaging, which included a foot MRI, which was officially read on 12/29/2022 as images are degraded by the patient's motion artifact. Small area of abnormal signal 1st metatarsal head could be degene rative or indicates osteomyelitis and should be related clinically. She has cellulitis as well. In addition, she had a foot x-ray and a Doppler ultrasound. The Doppler study was officially read as le ft common femoral, superficial femoral, popliteal artery stent is occluded. Monophasic flow is in th e posterior tibial and dorsalis pedis arteries. There is no flow identified within the stent. Assessment And Plan: This is a 72-year-old woman with multiple medical problems as described above, who comes in with diabetic/peripheral arterial disease to the left lower extremity. 1.IV fluid hydration. 2.Antibiotic coverage. 3.We will attempt a course of wound care with Silvadene, Vashe, wraps, elevation, compression. 4.If the patient is not a candidate for revascularization, we can try medical management, smoking ce ssation, diabetes control. If she fails medical management, I have discussed the possibility and lik elihood that she will need a cgaim-jic-rczm amputation; however, the patient refuses to have a below- the-knee amputation at this time and is requesting an attempt at wound care prior to any fevuv-wth-ep ee amputation consideration or amputations of any kind. At this point, I have explained that the ris ks, benefits, and alternatives of not having a nujid-wkt-nmoi amputation, which include worsening inf ection, sepsis, shock, , blood clots, strokes, heart attacks, and higher-level amputation, possi tasha being necessary. She would like to try a course of wound care prior to consideration of the belo w-the-knee amputation at this point. As such, we will proceed with attempted wound care and if she f ails medical measures, she states she will be more likely to consider a vncck-zuf-sdni amputation at that point. TK/MODL Voice ID: [id number] Report ID: [id number]
[2022-12-30 14:48] LABS: Anisocytosis 1+; Blood Morphology Comment NOTED (NOT SEEN); Platelet Estimate ADEQ; White Blood Cell Scan OK (OK)
[2022-12-30] MEDS: SILVER SULFADIAZINE 1% 50 GM TOP SCH ×2 (15:55→19:36)
[2022-12-30] MEDS: ZOLPIDEM TARTRATE 5 MG TABLET PO PRN (22:13)
[2022-12-31] MEDS: MORPHINE 2 MG/ML SYR IV PRN ×5 (01:51→21:04)
--- NOTE | 2022-12-31 05:22 | P.PN ---
Subjective Date of Service: 12/30/22 Subjective: No new changes, No C/O voiced, Improving Review of Systems 10-point ROS is otherwise unremarkable Physical Examination - Vital Signs Temperature: 97.7 F Blood Pressure: 147/65 Pulse: 101 Respirations: 18 Pulse Ox (%): 97 - Physical Exam General: Alert, In no apparent distress HEENT: Atraumatic, PERRLA, EOMI Neck: Supple, JVD not distended Respiratory: Clear to auscultation bilaterally, Normal air movement Cardiovascular: Regular rate/rhythm, Normal S1 S2 Gastrointestinal: Normal bowel sounds, No tenderness Musculoskeletal: No tenderness Integumentary: No rashes Neurological: Normal speech, Normal tone, Normal affect Lymphatics: No axilla or inguinal lymphadenopathy - Studies Microbiology Data (last 24 hrs): 12/29/22 12:28 Blood - Blood Anaerobic Blood Culture - Final 12/29/22 12:20 Blood - Blood Anaerobic Blood Culture - Final Medications List Reviewed: Yes Assessment & Plan - Problems (Diagnosis) (1) Occlusion of stent of peripheral artery Current Visit: Yes Status: Acute (2) Osteomyelitis Current Visit: Yes Status: Acute (3) H/O right coronary artery stent placement Current Visit: No Status: Acute (4) PAD (peripheral artery disease) Current Visit: No Status: Acute (5) Anemia Onset Date: 05/07/15 Current Visit: No Status: Chronic Qualifiers: Anemia type: other cause Other causes of anemia: chronic disease, other Qualified Code(s): D63.8 - Anemia in other chronic diseases classified elsewhere (6) COPD (chronic obstructive pulmonary disease) Current Visit: No Status: Chronic Qualifiers: (7) Diabetes mellitus Current Visit: No Status: Chronic Qualifiers: (8) Hypertension Current Visit: No Status: Chronic Qualifiers: - Plan Plan: 1. IV antibiotics 2. Cardiology consultation and Surgery consultation appreciated; awaiting PICC line placement; outpt IV abx 3. Anti-platelet and statin therapy 5. Nicotine patch 6. Strict blood pressure control 7. Gi DVT prophylaxis - Advance Directives Does patient have a Living Will: No Does patient have a Durable POA for Healthcare: No
[2022-12-31] MEDS: INSULIN -REGULAR HUMAN 50 UNIT/0.5 ML ML SQ SCH ×4 (07:30→20:01)
[2022-12-31] MEDS: HYDROCODONE/APAP 5/325 MG TAB PO PRN (08:20)
[2022-12-31] MEDS: NA CHLORIDE 0.9% 1,000 ML IV SCH (08:21)
[2022-12-31] MEDS: SILVER SULFADIAZINE 1% 50 GM TOP SCH ×2 (08:22→19:09)
[2022-12-31] MEDS: NICOTINE 21 MG/PAT TD SCH (08:22)
[2022-12-31] MEDS: HYDROCODONE/APAP 7.5/325 MG TAB PO PRN ×2 (17:45→22:11)
[2022-12-31] MEDS: ZOLPIDEM TARTRATE 5 MG TABLET PO PRN (21:03)
[2023-01-01] MEDS: MORPHINE 2 MG/ML SYR IV PRN ×3 (02:03→22:37)
[2023-01-01] MEDS: NA CHLORIDE 0.9% 1,000 ML IV SCH ×3 (02:03→22:38)
[2023-01-01] MEDS: INSULIN -REGULAR HUMAN 50 UNIT/0.5 ML ML SQ SCH ×4 (07:30→20:31)
[2023-01-01] MEDS: NICOTINE 21 MG/PAT TD SCH (09:00)
[2023-01-01] MEDS: HYDROCODONE/APAP 7.5/325 MG TAB PO PRN ×3 (09:27→20:38)
[2023-01-01] MEDS: HYDRALAZINE HCL 20 MG/ML VIAL IV PRN ×2 (09:32→20:40)
[2023-01-01] MEDS: SILVER SULFADIAZINE 1% 50 GM TOP SCH ×2 (09:34→20:43)
--- NOTE | 2023-01-01 10:27 | P.PN ---
Date of Service: 12/31/22 Subjective Subjective: Patient is clinically doing well. Patient denies any new complaints. Arrange for outpatient IV antibiotics. MRI showing osteomyelitis. Review of Systems 10-point ROS is otherwise unremarkable Physical Examination - Vital Signs Reviewed - Physical Exam General: Alert, In no apparent distress Respiratory: Clear to auscultation bilaterally, Normal air movement Cardiovascular: Regular rate/rhythm, Normal S1 S2 Gastrointestinal: Normal bowel sounds, No tenderness Musculoskeletal: Erythema Integumentary: Erythema and tenderness; left foot is cool Neurological: No focal deficits Assessment & Plan - Problems (Diagnosis) (1) Occlusion of stent of peripheral artery Current Visit: Yes Status: Acute (2) Osteomyelitis Current Visit: Yes Status: Acute (3) H/O right coronary artery stent placement Current Visit: No Status: Acute (4) PAD (peripheral artery disease) Current Visit: No Status: Acute (5) Anemia Onset Date: 05/07/15 Current Visit: No Status: Chronic Anemia type: other cause Other causes of anemia: chronic disease, other Qualified Code(s): D63.8 - Anemia in other chronic diseases classified elsewhere (6) COPD (chronic obstructive pulmonary disease) Current Visit: No Status: Chronic (7) Diabetes mellitus Current Visit: No Status: Chronic (8) Hypertension Current Visit: No Status: Chronic - Plan Continue with plan of care as mentioned below: 1. Continue with IV antibiotics 2. Cardiology consultation and Surgery consultation appreciated 3. Anti-platelet and statin therapy 5. Nicotine patch 6. Strict blood pressure control 7. PICC line placement and arrange for IV abx 8. Gi DVT prophylaxis
[2023-01-01] MEDS: Mupirocin NASAL 2 APPL/1 GM TUBE NAS SCH (20:43)
[2023-01-02] MEDS: HYDROCODONE/APAP 7.5/325 MG TAB PO PRN (03:31)
--- NOTE | 2023-01-02 03:54 | P.PN ---
Date of Service: 01/01/23 Subjective Subjective: Patient continues to do well. Patient denies any new complaints. Patient's clinical symptoms continue to improve.We are awaiting for IV antibiotic therapy and PICC line placement. Surgery will follow-up with patient as an outpatient as were trying to salvage patient's left lower extremity. However, because of significant occlusion patient may need left below-knee amputation as well. We will continue with 6 weeks of IV antibiotics and outpatient follow-up. Physical Examination - Vital Signs Reviewed - Physical Exam General: Alert, In no apparent distress Respiratory: Clear to auscultation bilaterally, Normal air movement Cardiovascular: Regular rate/rhythm, Normal S1 S2 Gastrointestinal: Normal bowel sounds, No tenderness Musculoskeletal: Erythema Integumentary: Erythema and tenderness; left foot is cool Neurological: No focal deficits Assessment & Plan - Problems (Diagnosis) (1) Occlusion of stent of peripheral artery Current Visit: Yes Status: Acute (2) Osteomyelitis Current Visit: Yes Status: Acute (3) H/O right coronary artery stent placement Current Visit: No Status: Acute (4) PAD (peripheral artery disease) Current Visit: No Status: Acute (5) Anemia Onset Date: 05/07/15 Current Visit: No Status: Chronic Anemia type: other cause Other causes of anemia: chronic disease, other Qualified Code(s): D63.8 - Anemia in other chronic diseases classified elsewhere (6) COPD (chronic obstructive pulmonary disease) Current Visit: No Status: Chronic (7) Diabetes mellitus Current Visit: No Status: Chronic (8) Hypertension Current Visit: No Status: Chronic - Plan Continue with plan of care as mentioned below: 1. Continue with IV antibiotics 2. Cardiology consultation and Surgery consultation appreciated 3. Anti-platelet and statin therapy 5. Nicotine patch 6. Strict blood pressure control 7. PICC line placement and arrange for IV abx 8. Gi DVT prophylaxis
[2023-01-02] MEDS ORDERED: VANCOMYCIN 1 GM in NA CHLORIDE 0.9% 250 ML IVPB SCH ×2 (03:56→12:00)
[2023-01-02] MEDS ORDERED: HYDROCODONE/APAP 10/325 TAB PO PRN (03:57)
[2023-01-02] MEDS ORDERED: ALBUTEROL 2.5 MG/3 ML NEB SOL NEB PRN ×2 (03:57→12:00)
[2023-01-02] MEDS ORDERED: Levofloxacin500mg IV 500 MG/100 ML BAG IV ONE (05:00)
[2023-01-02] MEDS: METOPROLOL TAR 25 MG TAB PO SCH ×2 (05:42→18:00)
[2023-01-02 07:10] LABS: Absolute Lymphocytes (CBC) 1.9 K/uL (0.7-4.9); Hematocrit 33.7 % (36.0-45.0); Lymphocytes % 24.9 % (15.3-44.8); MPV 7.3 fL (7.6-11.3); Platelets 302 thou/uL (152-406); RBC Red Blood Cell Count 3.92 M/uL (3.86-4.86)
[2023-01-02] MEDS: INSULIN -REGULAR HUMAN 50 UNIT/0.5 ML ML SQ SCH ×4 (07:30→21:00)
[2023-01-02 07:32] LABS: Magnesium 1.8 mg/dL (1.6-2.4); Potassium 3.9 mEq/L (3.5-5.1)
[2023-01-02 08:21] LABS: Anisocytosis 3+; Blood Morphology Comment NOTED (NOT SEEN); Platelet Estimate ADEQ; White Blood Cell Scan OK (OK)
[2023-01-02] MEDS: VANCOMYCIN 1 GM in NA CHLORIDE 0.9% 250 ML IVPB SCH (08:53)
[2023-01-02] MEDS: TORSEMIDE 20 MG TAB PO SCH (08:53)
[2023-01-02] MEDS: ALPRAZOLAM 0.5 MG TABLET PO SCH ×2 (08:53→21:36)
[2023-01-02] MEDS: RIVAROXABAN 15 MG TABLET PO SCH (08:54)
[2023-01-02] MEDS: PANTOPRAZOLE 40MG TABLET PO SCH (08:54)
[2023-01-02] MEDS: ATORVASTATIN 40 MG TAB PO SCH (08:54)
[2023-01-02] MEDS: Mupirocin NASAL 2 APPL/1 GM TUBE NAS SCH ×2 (08:55→21:36)
[2023-01-02] MEDS: lisinopriL 5 MG TAB PO SCH (08:55)
[2023-01-02] MEDS: ROPINIROLE HCL 1 MG TAB PO SCH ×3 (08:55→21:36)
[2023-01-02] MEDS: CLOPIDOGREL 75 MG TABLET PO SCH (08:55)
[2023-01-02] MEDS: NICOTINE 21 MG/PAT TD SCH (08:55)
[2023-01-02] MEDS: SILVER SULFADIAZINE 1% 50 GM TOP SCH (08:56)
[2023-01-02] MEDS ORDERED: LISINOPRIL 10 MG PO SCH (09:00)
[2023-01-02] MEDS ORDERED: METFORMIN HCL 500 MG TAB PO SCH (09:00)
--- NOTE | 2023-01-02 09:46 | P.CNS ---
Date of Consult: 01/02/23 Reason for Consult: Osteomyelitis Chief Complaint: Severe peripheral arterial disease with osteomyelitis History of Present Illness: Patient is a 72 year old female with a history of COPD, CHF, DMII, HTN, Hx CVA, HLD, CKDIII, Severe PAD s/p stent placement x 3 who presented to the ED for left lower leg pain and diabetic/arterial foot ulcer. Patients stents reportedly have been stenotic without successful attempt to reopen. MRI obtained revealing osteomyelitis and ID was consulted . Allergies Penicillins Allergy (Verified 11/02/21 13:48) Itching Home medications list reviewed: Yes Home Medications: Lisinopril 10 mg PO DAILY 05/07/15 Metformin HCl 1,000 mg PO BID 05/07/15 Ropinirole HCl 4 mg PO TID 05/07/15 Atorvastatin Calcium [Lipitor] 40 mg PO DAILY 03/04/21 Fluticasone [Flovent Hfa 110*] 2 appl IH PRN 03/04/21 Albuterol Neb [Proventil 0.083% Neb Soln] 2.5 mg NEB Q6HP PRN #60 amp 10/08/22 Hydrocodone 10/APAP 325 [[place] 10/325] 1 tab PO Q6H PRN #30 tab 10/08/22 ALPRAZolam [Xanax*] 0.5 mg PO BID 10/12/22 Pantoprazole [Protonix Tab*] 40 mg PO DAILY 10/12/22 Rivaroxaban [Xarelto*] 15 mg PO DAILY 10/12/22 Clopidogrel Bisulfate [Plavix*] 75 mg PO DAILY #30 tab 10/13/22 Metoprolol Tartrate [Lopressor*] 12.5 mg PO BID 6AM 6PM #30 tab 10/13/22 Torsemide [Demadex*] 20 mg PO DAILY #30 tab 10/13/22 lisinopriL [Lisinopril] 5 mg PO DAILY #30 tab 10/13/22 - Past Medical/Surgical History Diabetic: Yes -: CVAx2 -: CAD/ [place] -: COPD/ SubPleural Nodule -: Diastolic CHF -: NIDDM -: HTN -: Hyperlipidemia -: Anxiety -: CKD III with Proteinuria -: Heart stents -: Gisele -: Tubal ligation -: L neck sx Psychosocial/ Personal History: patient is retired. lives at home with family. - Family History Mother Medical History: Heart disease, Diabetes - Social History Smoking Status: Current every day smoker Alcohol use: No CD- Drugs: No Caffeine use: Yes Place of Residence: Home Review of Systems 10-point ROS is otherwise unremarkable General: Weakness Musculoskeletal: Leg Pain, Foot Pain Integumentary: As per HPI Physical Examination Temp Pulse Resp BP Pulse Ox 97.5 F 52 14 145/70 H 96 01/02/23 08:00 01/02/23 08:55 01/02/23 08:54 01/02/23 08:55 01/02/23 08:54 General: Alert, In no apparent distress, Oriented x3 HEENT: Atraumatic, Normocephalic Neck: JVD not distended Cardiovascular: No edema, Abnormal pulses (weak DP and PT pulses ) Gastrointestinal: Normal bowel sounds, Soft and benign Musculoskeletal: No clubbing Integumentary: Other (left foot Arterial ulcer/Diabetic ulcer. Dressing clean dry and intact ) Neurological: Normal speech, Normal tone, Normal affect Laboratory Data - Reviewed Microbiology Data - Reviewed Imagings Data: - MRI Left Foot 12/29: "IMPRESSION: Images are degraded by patient motion artifact. Small area of abnormal signal first metatarsal head could be degenerative or indicate osteomyelitis and should be correlated clinically. Cellulitis." - Doppler LLE 12/29: " Left common femoral, superficial femoral, popliteal artery stent is occluded. Monophasic flow in the posterior tibial and dorsalis pedis arteries." Conclusions/Impression: Problem List Osteomyelitis LLE Cellulitis LLE Peripheral Arterial Disease Coronary Artery Disease Congestive Heart Failure COPD Hyperlipidemia Hx CVA Prediabetes Mild PCM * Allergies: Penicillin * Osteomyelitis Cellulitis of Left Lower Extremity - MRI Left Foot 12/29: "Small area of abnormal signal first metatarsal head could be degenerative or indicate osteomyelitis and should be correlated clinically. Cellulitis." - Doppler LLE 12/29: " Left common femoral, superficial femoral, popliteal artery stent is occluded. Monophasic flow in the posterior tibial and dorsalis pedis arteries." - Complicated by peripheral arterial disease s/p stent placement LLE (approx. 5 months ago) - Currently on Vancomycin and Levofloxacin (started 01/02) - General surgery Dr. Lawrence on case. Blood cultures 12/29: no growth to date No leukocytosis. Afebrile EKG 11/11/22: QTc 440 Recommendations Patient and her family members request some time to discuss and decide whether to continue with medical management of osteomyselitis versus amputation. - Osteomyelitis: Patient will require 6 weeks of IV antibiotics - Currently on Levofloxacin and Vancomycin (started 01/02) - Continue local wound care per Dr. Lawrnece - Nutritional support as needed Case discussed with Smooth Brooks
[2023-01-02] MEDS: NA CHLORIDE 0.9% 1,000 ML IV SCH (11:20)
--- NOTE | 2023-01-02 11:46 | P.PN ---
Subjective Date of Service: 01/02/23 Chief Complaint: Severe peripheral arterial disease with osteomyelitis No acute events overnight. She reports mild discomfort in her left foot. She denies any fevers, chills, chest pain. She states that she is not interested in pursuing amputation. Infectious Diseases consulted for recommendations regarding outpatient IV antibiotics. Review of Systems 10-point ROS is otherwise unremarkable Musculoskeletal: Foot Pain (left) Physical Examination - Vital Signs Temperature: 97.5 F Blood Pressure: 145/70 Pulse: 52 Respirations: 14 Pulse Ox (%): 96 - Physical Exam General: Alert, In no apparent distress, Oriented x3 HEENT: Atraumatic, Mucous membr. moist/pink, Sclerae nonicteric Neck: JVD not distended Respiratory: Clear to auscultation bilaterally, Normal air movement Cardiovascular: No edema, Regular rate/rhythm, Normal S1 S2, No gallops, No rubs, No murmurs Gastrointestinal: Normal bowel sounds, Soft and benign, Non-distended, No tenderness, No rebound, No guarding Musculoskeletal: No clubbing, Other (left foot covered in clean dressing) Integumentary: No rashes Neurological: Normal speech, Normal affect - Studies Medications List Reviewed: Yes Assessment And Plan - Plan # Peripheral Artery Disease s/p Stenting complicated by Left First Metatarsal Osteomyelitis # Coronary Artery Disease s/p PCI # History of Cerebrovascular Accident # Hypertension # Dyslipidemia - Evaluation thus far: - Does not meet sepsis criteria - Left foot x-ray = "motion artifact limits the fine bony detail. No acute fracture. No malalignment. Calcaneal spurring. MRI more sensitive for detection of acute osteomyelitis." - MRI left foot = "small area of abnormal signal first metatarsal head could be degenerative or indicate osteomyelitis and should be correlated clinically. Cellulitis." - Left arterial Doppler = "left common femoral, superficial femoral, popliteal artery stent is occluded. Monophasic flow in the posterior tibial and dorsalis pedis arteries." - Management plan: - Consulted Cardiology and General Surgery - recommendations appreciated - She is not interested in amputation, so will likely require IV antibiotics + wound care - Infectious Diseases consulted - recommendations appreciated - Continue vanomycin + cefepime - Continue home atorvastatin, metoprolol, clopidogrel, rivaroxaban, lis inopril # Chronic Compensated Diastolic Congestive Heart Failure with Preserved Ejection Fraction - Consult Cardiology - recommendations appreciated - Continue home torsemide, metoprolol, lisinopril - Daily weights - Strict I/O - Cardiac diet, 2 L fluid restriction, 2 g Na restriction # 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
[2023-01-02] MEDS ORDERED: VANCOMYCIN 750 MG in NA CHLORIDE 0.9% 150 ML IVPB SCH (12:00)
[2023-01-02] MEDS: COLLAGENASE 30 GM OINTMENT TOP SCH (13:36)
[2023-01-02] MEDS: MORPHINE 2 MG/ML SYR IV PRN ×2 (13:37→21:36)
[2023-01-02] MEDS: METFORMIN HCL 500 MG TAB PO SCH (16:46)
[2023-01-02] MEDS: HYDRALAZINE HCL 20 MG/ML VIAL IV PRN (16:46)
--- NOTE | 2023-01-02 17:08 | RAD REPORT ---
EXAM DESCRIPTION: RAD - Chest Single View - 01/02/2023 4:43 pm CLINICAL HISTORY: Device placement PICC line placement IMPRESSION: PICC line with its tip in the superior vena cava
--- NOTE | 2023-01-02 19:27 | P.PN ---
Subjective Date of Service: 01/02/23 Chief Complaint: Severe peripheral arterial disease with osteomyelitis Subjective: Improving (patient continues to have pain in LEFT foot, minimally improved) Physical Examination - Vital Signs Temperature: 97.5 F Blood Pressure: 162/78 Pulse: 55 Respirations: 14 Pulse Ox (%): 97 - Physical Exam General: Alert, In no apparent distress, Cooperative Musculoskeletal: Other (LEFT foot wounds are improving slightly, decreased fibri n with santyl, less redness, but not resolved, toes remain tender, wounds appear cleaner laboratory equipment.) - Studies Medications List Reviewed: Yes Assessment And Plan - Current Problems (Diagnosis) (1) Osteomyelitis Current Visit: Yes Status: Acute Plan: I have discussed the possibility of below the knee amputation and the likelihood that she will need a below the knee amputation, however patient continues to state she would not wish for an amputation if there's any chance of limb salvage and as such with her minimal improvement she would like to continue wound care understanding that this will be a multifaceted approach. She will require endovascular evaluation and possible revascularization if possible, complete smoking cessation, medical management including tight blood sugar control. Strict adherence to wound care, frequent follow-up, long-term antibiotics , nonweightbearing to the foot. Even given all of these attempts she may still require an amputation. - patient wishes to proceed with non-operative management @ this time. - continue medical managment per Dr. Santana
[2023-01-03] MEDS: HYDROCODONE/APAP 7.5/325 MG TAB PO PRN (02:02)
[2023-01-03] MEDS ORDERED: FLUTICASONE IH SCH (04:00)
[2023-01-03] MEDS: Levofloxacin500mg IV 500 MG/100 ML BAG IV SCH (05:19)
[2023-01-03] MEDS: METOPROLOL TAR 25 MG TAB PO SCH ×2 (05:35→17:32)
[2023-01-03 07:30] LABS: Absolute Lymphocytes (CBC) 2.1 K/uL (0.7-4.9); Hematocrit 36.6 % (36.0-45.0); MCV 85.2 fL (80-100); MPV 7.3 fL (7.6-11.3); Platelets 306 thou/uL (152-406)
[2023-01-03] MEDS: INSULIN -REGULAR HUMAN 50 UNIT/0.5 ML ML SQ SCH ×4 (07:30→20:56)
[2023-01-03 07:57] LABS: Albumin 2.8 g/dL (3.4-5.0); Bilirubin Total 0.3 mg/dL (0.2-1.0); Magnesium 1.6 mg/dL (1.6-2.4); Potassium 3.7 mEq/L (3.5-5.1); Protein, Total 6.5 g/dL (6.4-8.2)
[2023-01-03] MEDS: NICOTINE 21 MG/PAT TD SCH (09:00)
[2023-01-03] MEDS: RIVAROXABAN 15 MG TABLET PO SCH (09:13)
[2023-01-03] MEDS: TORSEMIDE 20 MG TAB PO SCH (09:13)
[2023-01-03] MEDS: ROPINIROLE HCL 1 MG TAB PO SCH ×3 (09:13→20:53)
[2023-01-03] MEDS: ATORVASTATIN 40 MG TAB PO SCH (09:13)
[2023-01-03] MEDS: CLOPIDOGREL 75 MG TABLET PO SCH (09:13)
[2023-01-03] MEDS: VANCOMYCIN 1 GM in NA CHLORIDE 0.9% 250 ML IVPB SCH (09:14)
[2023-01-03] MEDS: ALPRAZOLAM 0.5 MG TABLET PO SCH ×2 (09:14→20:53)
[2023-01-03] MEDS: METFORMIN HCL 500 MG TAB PO SCH ×2 (09:14→17:00)
[2023-01-03] MEDS: lisinopriL 5 MG TAB PO SCH (09:14)
[2023-01-03] MEDS: PANTOPRAZOLE 40MG TABLET PO SCH (09:14)
[2023-01-03] MEDS: Mupirocin NASAL 2 APPL/1 GM TUBE NAS SCH ×2 (09:14→20:53)
[2023-01-03] MEDS: MORPHINE 2 MG/ML SYR IV PRN (09:15)
[2023-01-03] MEDS: COLLAGENASE 30 GM OINTMENT TOP SCH (09:16)
--- NOTE | 2023-01-03 14:35 | P.PN ---
Date of Service: 01/03/23 Chief Complaint: Severe peripheral arterial disease with osteomyelitis Subjective: Patient seen and examined at bedside. Reports left foot pain. Otherwise no new or worsening complaints. No acute events reported overnight. Physical Examination Temp Pulse Resp BP Pulse Ox 97.1 F 75 14 163/74 H 98 01/03/23 08:00 01/03/23 09:14 01/03/23 09:45 01/03/23 09:14 01/03/23 09:45 General: Alert, In no apparent distress, Oriented x3 HEENT: Atraumatic, Normocephalic Neck: JVD not distended Cardiovascular: No edema, Weak DP and PT pulses Gastrointestinal: Normal bowel sounds, Soft and benign Musculoskeletal: No clubbing Integumentary: Left foot Arterial ulcer/Diabetic ulcers Neurological: Normal speech, Normal tone, Normal affect Laboratory Data - Reviewed Microbiology Data - Reviewed Imagings Data: - MRI Left Foot 12/29: "IMPRESSION: Images are degraded by patient motion artifact. Small area of abnormal signal first metatarsal head could be degen erative or indicate osteomyelitis and should be correlated clinically. Cellulitis." - Doppler LLE 12/29: " Left common femoral, superficial femoral, popliteal artery stent is occluded. Monophasic flow in the posterior tibial and dorsalis pedis arteries." Medication List Reviewed Assessment and Plan Problem List Osteomyelitis LLE Cellulitis LLE Peripheral Arterial Disease Coronary Artery Disease Congestive Heart Failure COPD Hyperlipidemia Hx CVA Diabetes Mellitus Type II Mild PCM * Allergies: Penicillin * Osteomyelitis Cellulitis of Left Lower Extremity - MRI Left Foot 12/29: "Small area of abnormal signal first metatarsal head could be degenerative or indicate osteomyelitis and should be correlated clinically. Cellulitis." - Doppler LLE 12/29: " Left common femoral, superficial femoral, popliteal artery stent is occluded. Monophasic flow in the posterior tibial and dorsalis pedis arteries." - Complicated by diabetes and peripheral arterial disease s/p stent placement x3 LLE (approx. 5 months ago) which are occluded. Per reports, attempts to reopen have been unsuccessful. - Currently on Vancomycin and Levofloxacin (started 01/02) - General surgery Dr. Lawrence on case. Blood cultures 12/29: no growth to date No leukocytosis. Afebrile EKG 11/11/22: QTc 440 Recommendations Patient wishes to continue with medical management of left foot osteomyelitis via home health. - Continue antibiotic therapy x 6 weeks duration (Start date: 01/02 ; End date: 02/13) - Ciprofloxacin 500 mg PO Q12H and Vancomycin IV. Pharmacy dosing recommendations appreciated for vancomycin. - Recommend to monitor vanco trough, CBC and BMP 2 times per week (Sunday and ) - PICC line in place - Continue current wound care to left foot - Nutritional support as needed Case discussed with Smooth Brooks
--- NOTE | 2023-01-03 19:19 | P.PN ---
Subjective Date of Service: 01/03/23 Chief Complaint: Severe peripheral arterial disease with osteomyelitis No acute events overnight. She is eager to be discharged home; however, will need to arrange for home health antibiotics prior to discharge. Appreciate ID recs. She denies any fevers, chills, chest pain. Review of Systems 10-point ROS is otherwise unremarkable Musculoskeletal: Foot Pain (left) Physical Examination - Vital Signs Temperature: 97.3 F Blood Pressure: 114/55 Pulse: 79 Respirations: 18 Pulse Ox (%): 97 - Studies Microbiology Data (last 24 hrs): 12/29/22 12:28 Blood - Blood Aerobic Blood Culture - Final No growth in 5 days. 12/29/22 12:28 Blood - Blood Anaerobic Blood Culture - Final 12/29/22 12:20 Blood - Blood Aerobic Blood Culture - Final No growth in 5 days. 12/29/22 12:20 Blood - Blood Anaerobic Blood Culture - Final Medications List Reviewed: Yes Assessment And Plan - Plan - Physical Exam General: Alert, In no apparent distress, Oriented x3 HEENT: Atraumatic, Mucous membr. moist/pink, Sclerae nonicteric Respiratory: Clear to auscultation bilaterally, Normal air movement Cardiovascular: No edema, Regular rate/rhythm, No murmurs Gastrointestinal: Normal bowel sounds, Soft, Non-distended, No tenderness Musculoskeletal: No clubbing, Other (left great toe is with erythema and ulceration) Integumentary: No rashes Neurological: Normal speech, Normal affect # Peripheral Artery Disease s/p Stenting complicated by Left First Metatarsal Osteomyelitis # Coronary Artery Disease s/p PCI # History of Cerebrovascular Accident # Hypertension # Dyslipidemia - Evaluation thus far: - Does not meet sepsis criteria - Left foot x-ray = "motion artifact limits the fine bony detail. No acute fracture. No malalignment. Calcaneal spurring. MRI more sensitive for detection of acute osteomyelitis." - MRI left foot = "small area of abnormal signal first metatarsal head could be degenerative or indicate osteomyelitis and should be correlated clinically. Cellulitis." - Left arterial Doppler = "left common femoral, superficial femoral, popliteal artery stent is occluded. Monophasic flow in the posterior tibial and dorsalis pedis arteries." - Management plan: - Consulted Cardiology and General Surgery - recommendations appreciated - She is not interested in amputation, so will likely require IV antibiotics + wound care - Infectious Diseases consulted - recommendations appreciated - Continue vanomycin + cefepime - Appreciate recommendations regarding outpatient therapy - Continue home atorvastatin, metoprolol, clopidogrel, rivaroxaban, lisinopril # Chronic Compensated Diastolic Congestive Heart Failure with Preserved Ejection Fraction - Consult Cardiology - recommendations appreciated - Continue home torsemide, metoprolol, lisinopril - Daily weights - Strict I/O - Cardiac diet, 2 L fluid restriction, 2 g Na restriction # 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
[2023-01-04] MEDS: HYDROCODONE/APAP 7.5/325 MG TAB PO PRN (02:11)
[2023-01-04] MEDS: Levofloxacin500mg IV 500 MG/100 ML BAG IV SCH (05:50)
[2023-01-04] MEDS: MORPHINE 2 MG/ML SYR IV PRN ×3 (05:51→11:43)
[2023-01-04] MEDS: METOPROLOL TAR 25 MG TAB PO SCH ×2 (05:52→17:28)
[2023-01-04 06:19] LABS: Potassium 3.6 mEq/L (3.5-5.1)
[2023-01-04] MEDS: INSULIN -REGULAR HUMAN 50 UNIT/0.5 ML ML SQ SCH ×4 (07:30→20:33)
[2023-01-04] MEDS: METFORMIN HCL 500 MG TAB PO SCH ×2 (08:00→16:16)
[2023-01-04] MEDS: TORSEMIDE 20 MG TAB PO SCH (08:51)
[2023-01-04] MEDS: ALPRAZOLAM 0.5 MG TABLET PO SCH ×2 (08:52→20:33)
[2023-01-04] MEDS: CLOPIDOGREL 75 MG TABLET PO SCH (08:52)
[2023-01-04] MEDS: ROPINIROLE HCL 1 MG TAB PO SCH ×3 (08:52→20:33)
[2023-01-04] MEDS: Mupirocin NASAL 2 APPL/1 GM TUBE NAS SCH ×2 (08:56→20:32)
[2023-01-04] MEDS: RIVAROXABAN 15 MG TABLET PO SCH (09:00)
[2023-01-04] MEDS: ATORVASTATIN 40 MG TAB PO SCH (09:00)
[2023-01-04] MEDS: lisinopriL 5 MG TAB PO SCH (09:00)
[2023-01-04] MEDS: NICOTINE 21 MG/PAT TD SCH (09:00)
[2023-01-04] MEDS: PANTOPRAZOLE 40MG TABLET PO SCH (09:00)
[2023-01-04] MEDS: COLLAGENASE 30 GM OINTMENT TOP SCH (09:00)
[2023-01-04] MEDS: VANCOMYCIN 1 GM in NA CHLORIDE 0.9% 250 ML IVPB SCH (09:46)
--- NOTE | 2023-01-04 09:49 | P.PN ---
Date of Service: 01/04/23 Chief Complaint: Severe peripheral arterial disease with osteomyelitis Subjective: Patient seen and examined at bedside. Reports left leg/foot pain (mild). No fever or chills. No SOB or cough or chest pain at this time. No nausea, vomiting or diarrhea. Reports good appetite. No acute events reported overnight. Physical Examination Temp Pulse Resp BP Pulse Ox 98.2 F 79 18 121/58 L 98 01/04/23 04:00 01/04/23 08:51 01/04/23 08:54 01/04/23 08:51 01/04/23 08:54 General: Alert, In no apparent distress, Oriented x3 HEENT: Atraumatic, Normocephalic Neck: JVD not distended Cardiovascular: No edema, Weak DP and PT pulses Gastrointestinal: Normal bowel sounds, Soft and benign Musculoskeletal: No clubbing. No swelling. Integumentary: Left foot Arterial ulcer/Diabetic ulcers. Eschar/necrotic tissue noted . Neurological: Normal speech, Normal tone, Normal affect Laboratory Data - Reviewed Microbiology Data - Reviewed Imagings Data: - MRI Left Foot 12/29: "IMPRESSION: Images are degraded by patient motion artifact. Small area of abnormal signal first metatarsal head could be degenerative or indicate osteomyelitis and should be correlated clinically. Cellulitis." - Doppler LLE 12/29: " Left common femoral, superficial femoral, popliteal artery stent is occluded. Monophasic flow in the posterior tibial and dorsalis pedis arteries." Medication List Reviewed Assessment and Plan Problem List Osteomyelitis LLE Cellulitis LLE Peripheral Arterial Disease Coronary Artery Disease Congestive Heart Failure COPD Hyperlipidemia Hx CVA Diabetes Mellitus Type II Mild PCM * Allergies: Penicillin * Osteomyelitis Cellulitis of Left Lower Extremity - MRI Left Foot 12/29: "Small area of abnormal signal first metatarsal head could be degenerative or indicate osteomyelitis and should be correlated clinically. Cellulitis." - Doppler LLE 12/29: " Left common femoral, superficial femoral, popliteal artery stent is occluded. Monophasic flow in the posterior tibial and dorsalis pedis arteries." - Complicated by diabetes and peripheral arterial disease s/p stent placement x3 LLE which are occluded. Per reports, attempts to reopen have been unsuccessful. - Currently on Vancomycin and Levofloxacin IV (started 01/02) Blood cultures 12/29: no growth to date No leukocytosis. Afebrile EKG 11/11/22: QTc 440 Recommendations Patient wishes to continue with medical management of left foot osteomyelitis. Home health unable to draw twice weekly labs while patient is on vancomycin. We recommend monitoring Vanco trough, CBC and BMP at least twice weekly while on Vancomycin. Patient is agreeable to LTAC. CM/SW following. - Continue antibiotic therapy x 6 weeks duration (Start date: 01/02 ; End date: 02/13) - Pharmacy dosing recommendations appreciated for vancomycin. - PICC line in place - Continue current wound care to left foot Case discussed with Smooth Brooks
--- NOTE | 2023-01-04 15:35 | P.PN ---
Subjective Date of Service: 01/04/23 Chief Complaint: Severe peripheral arterial disease with osteomyelitis No acute events overnight. Per discussion with case management team, Home Health services is likely to have difficulty with twice weekly labs, two antibiotics administered twice daily, and the level of her wound care. For this reason, alternative options, such as LTAC and SNF were explored. After speaking with Ms. Ness, she is interested in LTAC services. Appreciate CM assistance. She denies any fevers, chills, chest pain. Review of Systems 10-point ROS is otherwise unremarkable Musculoskeletal: Foot Pain (left) Physical Examination - Vital Signs Temperature: 97.2 F Blood Pressure: 110/52 Pulse: 72 Respirations: 18 Pulse Ox (%): 98 - Studies Microbiology Data (last 24 hrs): 12/29/22 12:28 Blood - Blood Aerobic Blood Culture - Final No growth in 5 days. 12/29/22 12:28 Blood - Blood Anaerobic Blood Culture - Final 12/29/22 12:20 Blood - Blood Aerobic Blood Culture - Final No growth in 5 days. 12/29/22 12:20 Blood - Blood Anaerobic Blood Culture - Final Medications List Reviewed: Yes Assessment And Plan - Plan - Physical Exam General: Alert, In no apparent distress, Oriented x3 HEENT: Atraumatic, Sclerae nonicteric Respiratory: Clear to auscultation bilaterally, Normal air movement Cardiovascular: No edema, Regular rate/rhythm, No murmurs Gastrointestinal: Normal bowel sounds, Soft, Non-distended, No tenderness Musculoskeletal: Other (left great toe is with erythema and ulceration) Integumentary: No rashes Neurological: Normal speech, Normal affect # Peripheral Artery Disease s/p Stenting complicated by Left First Metatarsal Osteomyelitis # Coronary Artery Disease s/p PCI # History of Cerebrovascular Accident # Hypertension # Dyslipidemia - Evaluation thus far: - Does not meet sepsis criteria - Left foot x-ray = "motion artifact limits the fine bony detail. No acute fracture. No malalignment. Calcaneal spurring. MRI more sensitive for detection of acute osteomyelitis." - MRI left foot = "small area of abnormal signal first metatarsal head could be degenerative or indicate osteomyelitis and should be correlated clinically. Cellulitis." - Left arterial Doppler = "left common femoral, superficial femoral, popliteal artery stent is occluded. Monophasic flow in the posterior tibial and dorsalis pedis arteries." - Management plan: - Consulted Cardiology and General Surgery - recommendations appreciated - She is not interested in amputation, so will likely require IV antibiotics + wound care - Infectious Diseases consulted and spoke with [employer] Sgarbi - recommendations appreciated - Continue vancomycin + levofloxacin - Appreciate recommendations regarding outpatient therapy - Continue home atorvastatin, metoprolol, clopidogrel, rivaroxaban, lisinopril - Appreciate CM assistance with placement # Chronic Compensated Diastolic Congestive Heart Failure with Preserved Ejection Fraction - Consult Cardiology - recommendations appreciated - Continue home torsemide, metoprolol, lisinopril - Daily weights - Strict I/O - Cardiac diet, 2 L fluid restriction, 2 g Na restriction # 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
[2023-01-04] MEDS: GLUCERNA SHAKE 237 ML CAN PO SCH (20:32)
[2023-01-05] MEDS: HYDROCODONE/APAP 7.5/325 MG TAB PO PRN ×4 (00:37→23:41)
[2023-01-05] MEDS: Levofloxacin500mg IV 500 MG/100 ML BAG IV SCH (04:23)
[2023-01-05 04:48] LABS: Potassium 3.4 mEq/L (3.5-5.1)
[2023-01-05] MEDS: METOPROLOL TAR 25 MG TAB PO SCH ×2 (05:29→17:17)
--- NOTE | 2023-01-05 05:36 | P.PN ---
Date of Service: 01/05/23 I was notified by nursing staff that patient sustained a mechanical fall she was trying to balance while wiping after using the restroom and lost her balance falling onto her right side, she is complaining of right shoulder pain. Range of motion is intact, x-ray was ordered and is negative for acute findings. She is given p.o. pain medication she denies any other complaints at this time, no other signs of trauma or loss of consciousness.
[2023-01-05] MEDS: INSULIN -REGULAR HUMAN 50 UNIT/0.5 ML ML SQ SCH ×4 (07:30→20:33)
[2023-01-05] MEDS: METFORMIN HCL 500 MG TAB PO SCH ×2 (07:53→17:17)
[2023-01-05] MEDS: GLUCERNA SHAKE 237 ML CAN PO SCH ×2 (09:00→20:32)
[2023-01-05] MEDS: lisinopriL 5 MG TAB PO SCH (09:11)
[2023-01-05] MEDS: ROPINIROLE HCL 1 MG TAB PO SCH ×3 (09:11→20:33)
[2023-01-05] MEDS: CLOPIDOGREL 75 MG TABLET PO SCH (09:11)
[2023-01-05] MEDS: TORSEMIDE 20 MG TAB PO SCH (09:12)
[2023-01-05] MEDS: ATORVASTATIN 40 MG TAB PO SCH (09:12)
[2023-01-05] MEDS: RIVAROXABAN 15 MG TABLET PO SCH (09:12)
[2023-01-05] MEDS: ALPRAZOLAM 0.5 MG TABLET PO SCH ×2 (09:12→20:33)
[2023-01-05] MEDS: NICOTINE 21 MG/PAT TD SCH (09:13)
[2023-01-05] MEDS: VANCOMYCIN 1 GM in NA CHLORIDE 0.9% 250 ML IVPB SCH (09:13)
[2023-01-05] MEDS: PANTOPRAZOLE 40MG TABLET PO SCH (09:13)
[2023-01-05] MEDS: COLLAGENASE 30 GM OINTMENT TOP SCH (09:13)
[2023-01-05] MEDS: Mupirocin NASAL 2 APPL/1 GM TUBE NAS SCH ×2 (09:14→20:32)
[2023-01-05] MEDS: ONDANSETRON 4 MG/2 ML VIAL IV PRN (09:27)
--- NOTE | 2023-01-05 17:36 | RAD REPORT ---
EXAM DESCRIPTION: Shoulder Right 2 View CLINICAL HISTORY: 72 years Female fall Shoulder Right 2 View COMPARISON: None TECHNIQUE: 2 images of the right shoulder were obtained. FINDINGS: Satisfactory articulation humeral head with glenoid fossa. No acute fractures seen. Mild bony demineralization. No erosive or lytic lesions seen. Right peripheral catheter is present with the tips in the atrial caval junction. IMPRESSION: No acute fracture or dislocation seen. Electronically signed by: Any Solis MD 01/05/2023 1:41 AM CDT Due to temporary technical issues with the PACS/Fluency reporting system, reports are being signed by the in house radiologists without review as a courtesy to insure prompt reporting. The interpreting radiologist is fully responsible for the content of the report.
--- NOTE | 2023-01-05 18:06 | P.PN ---
Date of Service: 01/05/23 Chief Complaint: Severe peripheral arterial disease with osteomyelitis Subjective: Patient sustained a fall overnight while using the restroom. Patient reports shoulder pain. No chest pain, back pain or abdominal pain. No nausea vomiting or diarrhea. No cough or shortness of breath. Physical Examination Temp Pulse Resp BP Pulse Ox 97.1 F 82 14 138/60 94 01/05/23 08:00 01/05/23 17:17 01/05/23 09:55 01/05/23 09:11 01/05/23 08:00 General: Alert, In no apparent distress, Oriented x3 HEENT: Atraumatic, Normocephalic Neck: JVD not distended Cardiovascular: No edema, Weak DP and PT pulses Gastrointestinal: Normal bowel sounds, Soft and benign Musculoskeletal: No clubbing. No swelling. Integumentary: Left foot Arterial ulcer/Diabetic ulcers. Neurological: Normal speech, Normal tone, Normal affect Laboratory Data - Reviewed Microbiology Data - Reviewed Imagings Data: - MRI Left Foot 12/29: "IMPRESSION: Images are degraded by patient motion ar tifact. Small area of abnormal signal first metatarsal head could be degenerative or indicate osteomyelitis and should be correlated clinically. Cellulitis." - Doppler LLE 12/29: " Left common femoral, superficial femoral, popliteal artery stent is occluded. Monophasic flow in the posterior tibial and dorsalis pedis arteries." Medication List Reviewed Assessment and Plan Problem List Osteomyelitis LLE Cellulitis LLE Peripheral Arterial Disease Coronary Artery Disease Congestive Heart Failure COPD Hyperlipidemia Hx CVA Diabetes Mellitus Type II Mild PCM * Allergies: Penicillin * Osteomyelitis Cellulitis of Left Lower Extremity - MRI Left Foot 12/29: "Small area of abnormal signal first metatarsal head could be degenerative or indicate osteomyelitis and should be correlated clinically. Cellulitis." - Doppler LLE 12/29: " Left common femoral, superficial femoral, popliteal artery stent is occluded. Monophasic flow in the posterior tibial and dorsalis pedis arteries." - Complicated by diabetes and peripheral arterial disease s/p stent placement x3 LLE which are occluded. Per reports, attempts to reopen have been unsuccessful. - Currently on Vancomycin and Levofloxacin IV (started 01/02) Blood cultures 12/29: no growth to date No leukocytosis. Afebrile EKG 11/11/22: QTc 440 Recommendations Patient wishes to continue with medical management of left foot osteomyelitis. - Continue antibiotic therapy x 6 weeks duration (Start date: 01/02 ; End date: 02/13). - Currently on Levaquin and Vancomycin. - PICC line in place - Continue current wound care to left foot Patient would benefit from LTAC for continued IV antibiotics, physical therapy and wound care. She is agreeable to LTAC. Case management/social work following. Case discussed with Smooth Brooks
--- NOTE | 2023-01-05 18:52 | P.PN ---
Subjective Date of Service: 01/05/23 Chief Complaint: Severe peripheral arterial disease with osteomyelitis Overnight, she sustained a ground-level mechanical fall. She denies any head trauma or loss of consciousness. Her shoulder x-ray revealed, "no acute fracture or dislocation seen." Appreciate CM assistance with placement - she is interested in [facility]. She denies any fevers, chills, chest pain. Review of Systems 10-point ROS is otherwise unremarkable General: Weakness (generalized) Physical Examination - Vital Signs Temperature: 97.1 F Blood Pressure: 138/60 Pulse: 82 Respirations: 14 Pulse Ox (%): 94 - Studies Medications List Reviewed: Yes Assessment And Plan - Plan - Physical Exam General: Alert, In no apparent distress, Oriented x3 HEENT: Atraumatic, Sclerae nonicteric Respiratory: Clear to auscultation bilaterally, Normal air movement Cardiovascular: No edema, Regular rate/rhythm, No murmurs Gastrointestinal: Normal bowel sounds, Soft, Non-distended, No tenderness Musculoskeletal: Other (left great toe is with erythema and ulceration) Integumentary: No rashes Neurological: Normal speech, Normal affect # Peripheral Artery Disease s/p Stenting complicated by Left First Metatarsal Osteomyelitis # Coronary Artery Disease s/p PCI # History of Cerebrovascular Accident # Hypertension # Dyslipidemia - Evaluation thus far: - Does not meet sepsis criteria - Left foot x-ray = "motion artifact limits the fine bony detail. No acute fracture. No malalignment. Calcaneal spurring. MRI more sensitive for detection of acute osteomyelitis." - MRI left foot = "small area of abnormal signal first metatarsal head could be degenerative or indicate osteomyelitis and should be correlated clinically. Cellulitis." - Left arterial Doppler = "left common femoral, superficial femoral, popliteal artery stent is occluded. Monophasic flow in the posterior tibial and dorsalis pedis arteries." - Management plan: - Consulted Cardiology and General Surgery - recommendations appreciated - She is not interested in amputation, so will likely require IV antibiotics + wound care - Infectious Diseases consulted and spoke with [employer]IST Sgarbi - recommendations appreciated - Continue vancomycin + levofloxacin - Appreciate recommendations regarding outpatient therapy - Continue home atorvastatin, metoprolol, clopidogrel, rivaroxaban, lisinopril - Appreciate CM assistance with placement - Ms. 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
[2023-01-06] MEDS: METOPROLOL TAR 25 MG TAB PO SCH ×2 (05:35→18:00)
[2023-01-06] MEDS: Levofloxacin500mg IV 500 MG/100 ML BAG IV SCH (05:35)
[2023-01-06] MEDS: HYDROCODONE/APAP 7.5/325 MG TAB PO PRN ×2 (05:36→09:51)
[2023-01-06] MEDS: ONDANSETRON 4 MG/2 ML VIAL IV PRN ×2 (06:56→21:41)
[2023-01-06] MEDS: INSULIN -REGULAR HUMAN 50 UNIT/0.5 ML ML SQ SCH ×4 (07:30→21:00)
[2023-01-06] MEDS: GLUCERNA SHAKE 237 ML CAN PO SCH ×2 (09:00→21:00)
[2023-01-06] MEDS: VANCOMYCIN 1 GM in NA CHLORIDE 0.9% 250 ML IVPB SCH ×2 (09:00→09:43)
[2023-01-06] MEDS: NICOTINE 21 MG/PAT TD SCH (09:00)
[2023-01-06 09:32] LABS: Magnesium 1.3 mg/dL (1.6-2.4); Potassium 3.7 mEq/L (3.5-5.1)
[2023-01-06] MEDS: CLOPIDOGREL 75 MG TABLET PO SCH (09:40)
[2023-01-06] MEDS: lisinopriL 5 MG TAB PO SCH (09:40)
[2023-01-06] MEDS: METFORMIN HCL 500 MG TAB PO SCH (09:40)
[2023-01-06] MEDS: PANTOPRAZOLE 40MG TABLET PO SCH (09:40)
[2023-01-06] MEDS: ALPRAZOLAM 0.5 MG TABLET PO SCH ×2 (09:41→21:30)
[2023-01-06] MEDS: ATORVASTATIN 40 MG TAB PO SCH (09:41)
[2023-01-06] MEDS: ROPINIROLE HCL 1 MG TAB PO SCH ×3 (09:41→21:30)
[2023-01-06] MEDS: TORSEMIDE 20 MG TAB PO SCH (09:41)
[2023-01-06] MEDS: Mupirocin NASAL 2 APPL/1 GM TUBE NAS SCH (09:42)
[2023-01-06] MEDS: RIVAROXABAN 15 MG TABLET PO SCH (09:44)
[2023-01-06] MEDS: COLLAGENASE 30 GM OINTMENT TOP SCH (14:04)
--- NOTE | 2023-01-06 15:35 | P.PN ---
Subjective Date of Service: 01/06/23 Chief Complaint: Severe peripheral arterial disease with osteomyelitis No new changes. She was seen this morning on rounds alongside Dr. Lawrence. She denies any concerns. She is pending SNF placement. Review of Systems 10-point ROS is otherwise unremarkable General: Weakness (generalized) Musculoskeletal: Foot Pain (left) Physical Examination - Vital Signs Temperature: 97.4 F Blood Pressure: 107/49 Pulse: 73 Respirations: 16 Pulse Ox (%): 95 - Studies Medications List Reviewed: Yes Assessment And Plan - Plan - Physical Exam General: Alert, In no apparent distress, Oriented x3 HEENT: Atraumatic, Sclerae nonicteric Respiratory: Clear to auscultation bilaterally, Normal air movement Cardiovascular: No edema, Regular rate/rhythm, No murmurs Gastrointestinal: Normal bowel sounds, Soft, Non-distended, No tenderness Musculoskeletal: Left foot covered in clean dressing Integumentary: No rashes Neurological: Normal speech, Normal affect # Peripheral Artery Disease s/p Stenting complicated by Left First Metatarsal Osteomyelitis # Coronary Artery Disease s/p PCI # History of Cerebrovascular Accident # Hypertension # Dyslipidemia - Evaluation thus far: - Does not meet sepsis criteria - Left foot x-ray = "motion artifact limits the fine bony detail. No acute fracture. No malalignment. Calcaneal spurring. MRI more sensitive for detection of acute osteomyelitis." - MRI left foot = "small area of abnormal signal first metatarsal head could be degenerative or indicate osteomyelitis and should be correlated clinically. Cellulitis." - Left arterial Doppler = "left common femoral, superficial femoral, popliteal artery stent is occluded. Monophasic flow in the posterior tibial and dorsalis pedis arteries." - Management plan: - Consulted Cardiology and General Surgery - recommendations appreciated - She is not interested in amputation, so will likely require IV antibiotics + wound care - Infectious Diseases consulted and spoke with [employer]OP RIVETER Sgarbi - recommendations appreciated - Continue vancomycin + levofloxacin - Appreciate recommendations regarding outpatient therapy - Continue home atorvastatin, metoprolol, clopidogrel, rivaroxaban, lisinopril - Appreciate CM assistance with placement - Ms. 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 She is pending SNF placement. Appreciate CM assistance. Henry Santana M.D.
[2023-01-06] MEDS ORDERED: BISMUTH SUBSALICYL 262MG/15ML-240 ML BTL PO PRN (20:19)
[2023-01-06] MEDS ORDERED: CALCIUM CARBONATE CHEW 500MG TAB PO PRN (20:59)
[2023-01-07] MEDS: HYDROCODONE/APAP 5/325 MG TAB PO PRN ×3 (02:35→22:26)
[2023-01-07] MEDS: MORPHINE 2 MG/ML SYR IV PRN ×3 (05:04→18:03)
[2023-01-07] MEDS: Levofloxacin500mg IV 500 MG/100 ML BAG IV SCH (05:05)
[2023-01-07] MEDS: METOPROLOL TAR 25 MG TAB PO SCH ×2 (05:44→18:03)
[2023-01-07] MEDS: INSULIN -REGULAR HUMAN 50 UNIT/0.5 ML ML SQ SCH ×4 (07:30→21:00)
[2023-01-07] MEDS: ROPINIROLE HCL 1 MG TAB PO SCH ×2 (08:37→15:45)
[2023-01-07] MEDS: CLOPIDOGREL 75 MG TABLET PO SCH (08:38)
[2023-01-07] MEDS: PANTOPRAZOLE 40MG TABLET PO SCH (08:38)
[2023-01-07] MEDS: RIVAROXABAN 15 MG TABLET PO SCH (08:38)
[2023-01-07] MEDS: ALPRAZOLAM 0.5 MG TABLET PO SCH ×2 (08:40→21:00)
[2023-01-07] MEDS: ATORVASTATIN 40 MG TAB PO SCH (08:41)
[2023-01-07] MEDS: NICOTINE 21 MG/PAT TD SCH (08:41)
[2023-01-07] MEDS: GLUCERNA SHAKE 237 ML CAN PO SCH ×2 (08:41→21:00)
[2023-01-07] MEDS: ONDANSETRON 4 MG/2 ML VIAL IV PRN (08:49)
[2023-01-07] MEDS: TORSEMIDE 20 MG TAB PO SCH (09:00)
[2023-01-07 09:21] LABS: Potassium 3.6 mEq/L (3.5-5.1)
[2023-01-07] MEDS: COLLAGENASE 30 GM OINTMENT TOP SCH (11:15)
--- NOTE | 2023-01-07 15:09 | P.PN ---
Subjective Date of Service: 01/07/23 Chief Complaint: Severe peripheral arterial disease with osteomyelitis No new changes. She denies any concerns. She is pending SNF placement, which is unlikely to occur over the weekend. Review of Systems 10-point ROS is otherwise unremarkable General: Weakness (generalized) Physical Examination - Vital Signs Temperature: 97.4 F Blood Pressure: 106/53 Pulse: 72 Respirations: 12 Pulse Ox (%): 93 - Studies Medications List Reviewed: Yes Assessment And Plan - Plan - Physical Exam General: Alert, In no apparent distress, Oriented x3 HEENT: Atraumatic, Sclerae nonicteric Respiratory: Clear to auscultation bilaterally, Normal air movement Cardiovascular: No edema, Regular rate/rhythm, No murmurs Gastrointestinal: Normal bowel sounds, Soft, Non-distended, No tenderness Musculoskeletal: Left foot covered in clean dressing Integumentary: No rashes Neurological: Normal speech, Normal affect # Peripheral Artery Disease s/p Stenting complicated by Left First Metatarsal Osteomyelitis # Coronary Artery Disease s/p PCI # History of Cerebrovascular Accident # Hypertension # Dyslipidemia - Evaluation thus far: - Does not meet sepsis criteria - Left foot x-ray = "motion artifact limits the fine bony detail. No acute fracture. No malalignment. Calcaneal spurring. MRI more sensitive for detection of acute osteomyelitis." - MRI left foot = "small area of abnormal signal first metatarsal head could be degenerative or indicate osteomyelitis and should be correlated clinically. Cellulitis." - Left arterial Doppler = "left common femoral, superficial femoral, popliteal artery stent is occluded. Monophasic flow in the posterior tibial and dorsalis pedis arteries." - Management plan: - Consulted Cardiology and General Surgery - recommendations appreciated - She is not interested in amputation, so will likely require IV antibiotics + wound care - Infectious Diseases consulted- recommendations appreciated - Continue vancomycin + levofloxacin - Appreciate recommendations regarding outpatient therapy - Continue home atorvastatin, metoprolol, clopidogrel, rivaroxaban, lisinopril - Appreciate CM assistance with placement - Ms. 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 She is pending SNF placement. Appreciate CM assistance. 01/07: No new changes today. She is pending SNF placement. Appreciate CM assistance. Unlikely to occur over the weekend. Henry Santana M.D.
[2023-01-07] MEDS: NA CHLORIDE 0.9% 1,000 ML IV SCH (18:02)
[2023-01-08] MEDS: ROPINIROLE HCL 1 MG TAB PO SCH ×4 (03:11→22:02)
[2023-01-08] MEDS: MORPHINE 2 MG/ML SYR IV PRN ×2 (04:52→12:34)
[2023-01-08] MEDS: NA CHLORIDE 0.9% 1,000 ML IV SCH ×3 (04:54→14:59)
[2023-01-08] MEDS: Levofloxacin500mg IV 500 MG/100 ML BAG IV SCH (04:56)
[2023-01-08] MEDS: METOPROLOL TAR 25 MG TAB PO SCH ×2 (06:00→18:00)
[2023-01-08 07:02] LABS: Phosphorus 2.9 mg/dL (2.5-4.9); Potassium 2.9 mEq/L (3.5-5.1)
[2023-01-08] MEDS ORDERED: MAGNESIUM 50% 3 GM in NA CHLORIDE 0.9% 100 ML IV ONE (07:11)
[2023-01-08] MEDS ORDERED: POTASSIUM 25 MEQ EFFERV TAB PO ONE (07:12)
[2023-01-08] MEDS: INSULIN -REGULAR HUMAN 50 UNIT/0.5 ML ML SQ SCH ×4 (07:30→21:00)
[2023-01-08] MEDS ORDERED: NA CHLORIDE 0.9% 0 ML ONE (08:42)
[2023-01-08] MEDS: PANTOPRAZOLE 40MG TABLET PO SCH (08:42)
[2023-01-08] MEDS: NICOTINE 21 MG/PAT TD SCH (08:43)
[2023-01-08] MEDS: ALPRAZOLAM 0.5 MG TABLET PO SCH (08:43)
[2023-01-08] MEDS: HYDROCODONE/APAP 5/325 MG TAB PO PRN ×2 (08:43→18:00)
[2023-01-08] MEDS: ATORVASTATIN 40 MG TAB PO SCH (08:43)
[2023-01-08] MEDS: RIVAROXABAN 15 MG TABLET PO SCH (08:43)
[2023-01-08] MEDS: CLOPIDOGREL 75 MG TABLET PO SCH (08:43)
[2023-01-08] MEDS: GLUCERNA SHAKE 237 ML CAN PO SCH ×2 (08:47→21:00)
[2023-01-08] MEDS: COLLAGENASE 30 GM OINTMENT TOP SCH (08:54)
[2023-01-08 09:41] LABS: Albumin 2.7 g/dL (3.4-5.0); Bilirubin Total 0.4 mg/dL (0.2-1.0); Potassium 3.7 mEq/L (3.5-5.1); Protein, Total 6.3 g/dL (6.4-8.2)
--- NOTE | 2023-01-08 09:49 | P.PN ---
Date of Service: 01/08/23 Chief Complaint: Severe peripheral arterial disease with osteomyelitis Subjective: Patient seen and examined at bedside. Sitting up on side of bed. Denies any new or worsening complaints. Daughter at bedside. No acute events reported overnight. Physical Examination Temp Pulse Resp BP Pulse Ox 97.7 F 72 16 122/59 L 95 01/08/23 16:25 01/08/23 16:25 01/08/23 16:25 01/08/23 16:25 01/08/23 16:25 General: Alert, In no apparent distress, Oriented x3 HEENT: Atraumatic, Normocephalic Neck: JVD not distended Cardiovascular: No edema, Weak DP and PT pulses Gastrointestinal: Normal bowel sounds, Soft and benign Musculoskeletal: No clubbing. No swelling. Integumentary: Left foot Arterial ulcer/Diabetic ulcers. Neurological: Normal speech, Normal tone, Normal affect Laboratory Data - Reviewed Microbiology Data - Reviewed Imagings Data: - MRI Left Foot 12/29: "IMPRESSION: Images are degraded by patient motion artifact. Small area of abnormal signal first metatarsal head could be degenerative or indicate osteomyelitis and should be correlated clinically. Cellulitis." - Doppler LLE 12/29: " Left common femoral, superficial femoral, popliteal artery stent is occluded. Monophasic flow in the posterior tibial and dorsalis pedis arteries." Medication List Reviewed Assessment and Plan Problem List Osteomyelitis LLE Cellulitis LLE Peripheral Arterial Disease Coronary Artery Disease Congestive Heart Failure COPD Hyperlipidemia Hx CVA Diabetes Mellitus Type II Mild PCM Acute Kidney Injury * Allergies: Penicillin * Osteomyelitis Cellulitis of Left Lower Extremity - MRI Left Foot 12/29: "Small area of abnormal signal first metatarsal head could be degenerative or indicate osteomyelitis and should be correlated clinically. Cellulitis." - Doppler LLE 12/29: " Left common femoral, superficial femoral, popliteal artery stent is occluded. Monophasic flow in the posterior tibial and dorsalis pedis arteries." - Complicated by diabetes and peripheral arterial disease s/p stent placement x3 LLE which are occluded. Per reports, attempts to reopen have been unsuccessful. - Currently on Vancomycin and Levofloxacin IV (started 01/02) Blood cultures 12/29: no growth to date No leukocytosis. Afebrile Recommendations - Osteomyelitis: Continue antibiotic therapy x 6 weeks duration (Start date: 01/02 ; End date: 02/13). - Currently on Levaquin and Vancomycin. - PICC line in place - Continue current wound care to left foot - DALE. Nephrology now consulted. Case discussed with Malorie Brooks.
[2023-01-08] MEDS: VANCOMYCIN 1 GM in NA CHLORIDE 0.9% 250 ML IVPB SCH (11:02)
[2023-01-08 11:36] VITALS: O2SAT 96
[2023-01-08 13:10] VITALS: BMI 20.2
--- NOTE | 2023-01-08 13:50 | P.CNS ---
Date of Consult: 01/08/23 Reason for Consult: DALE Requesting Physician: Henry Santana Chief Complaint: Severe peripheral arterial disease with osteomyelitis History of Present Illness: Patient is a 72-year-old female who came to the hospital with severe peripheral arterial disease. patient has a history of stent placement and according to Cardiology patient's stent has been stenotic and they tried to work with reopening it but it has been unsuccessful. Patient unlikely to be able to get distal stent reopen. Patient will need MRI of the foot to evaluate for infection. The foot is warm and tender. Will start patient on IV antibiotics and general surgery consultation. 10:37 This 72 yrs old Female presents to ER via Wheelchair with complaints of Chest ms3 Pain, Foot Pain. 10:37 72-year-old female with past medical history of anxiety, coronary artery disease, ms3 congestive heart failure, COPD, CVA, diabetes, hyperlipidemia presents for left foot pain that is been ongoing for 7 months. Patient states the pain became excruciating today. Patient states she has been on antibiotics in the past for this and is currently not on antibiotics. Patient states pain is 10/10. Patient denies alleviating or inciting factors. Patient endorses chills. Patient denies fevers, chills, nausea, vomiting. No NSAIDs. No difficulty with urination. Left foot pain. Allergies Penicillins Allergy (Verified 11/02/21 13:48) Itching Home medications list reviewed: Yes Home Medications: Lisinopril 10 mg PO DAILY 05/07/15 Metformin HCl 1,000 mg PO BID 05/07/15 Ropinirole HCl 4 mg PO TID 05/07/15 Atorvastatin Calcium [Lipitor] 40 mg PO DAILY 03/04/21 Fluticasone [Flovent Hfa 110*] 2 appl IH PRN 03/04/21 Albuterol Neb [Proventil 0.083% Neb Soln] 2.5 mg NEB Q6HP PRN #60 amp 10/08/22 Hydrocodone 10/APAP 325 [[place] 10/325] 1 tab PO Q6H PRN #30 tab 10/08/22 ALPRAZolam [Xanax*] 0.5 mg PO BID 10/12/22 Pantoprazole [Protonix Tab*] 40 mg PO DAILY 10/12/22 Rivaroxaban [Xarelto*] 15 mg PO DAILY 10/12/22 Clopidogrel Bisulfate [Plavix*] 75 mg PO DAILY #30 tab 10/13/22 Metoprolol Tartrate [Lopressor*] 12.5 mg PO BID 6AM 6PM #30 tab 10/13/22 Torsemide [Demadex*] 20 mg PO DAILY #30 tab 10/13/22 lisinopriL [Lisinopril] 5 mg PO DAILY #30 tab 10/13/22 - Past Medical/Surgical History Diabetic: Yes -: CVAx2 -: CAD/ NV -: COPD/ SubPleural Nodule -: Diastolic CHF -: NIDDM -: HTN -: Hyperlipidemia -: Anxiety -: CKD III with Proteinuria (Dr. Bhatt/ Dr. Soler) -: Heart stents -: Gisele -: Tubal ligation -: L neck sx Psychosocial/ Personal History: patient is retired. lives at home with family. - Family History Mother Medical History: Heart disease, Diabetes - Social History Smoking Status: Current every day smoker Alcohol use: No CD- Drugs: No Caffeine use: Yes Place of Residence: Home Review of Systems 10-point ROS is otherwise unremarkable General: Weakness Musculoskeletal: Foot Pain Physical Examination Temp Pulse Resp BP Pulse Ox 97.7 F 72 16 122/59 L 95 01/08/23 08:00 01/08/23 08:00 01/08/23 13:04 01/08/23 08:00 01/08/23 13:04 General: In no apparent distress, Oriented x3, Cooperative HEENT: Atraumatic Neck: Supple Respiratory: Clear to auscultation bilaterally, Normal air movement Cardiovascular: No edema, Regular rate/rhythm Gastrointestinal: Soft and benign, Non-distended Musculoskeletal: No clubbing, No contractures Integumentary: Skin breakdown, Tenderness/swelling, Diabetic ulcer Neurological: Normal speech Blood work reviewed in the chart. Imagings Data: EXAM DESCRIPTION: RAD - Chest Single View - 01/02/2023 4:43 pm CLINICAL HISTORY: Device placement PICC line placement IMPRESSION: PICC line with its tip in the superior vena cava EXAM DESCRIPTION: MRI - Foot Left Wo Cont - 12/29/2022 3:02 pm CLINICAL HISTORY: Left foot pain and swelling COMPARISON: X-ray December 29, 2022 TECHNIQUE: Axial, sagittal and coronal magnetic resonance imaging left foot FINDINGS: Images are degraded by patient motion artifact. Small area of abnormal signal involves the first metatarsal head. No additional clear areas of abnormal signal within the bones is noted. Diffuse edema within predominantly dorsal subcutaneous tissues probably a cellulitis. No soft tissue abscess seen IMPRESSION: Images are degraded by patient motion artifact Small area of abnormal signal first metatarsal head could be degenerative or indicate osteomyelitis and should be correlated clinically Cellulitis Conclusions/Impression: Stage II DALE in the setting of hypotension and vancomycin CKD III with Proteinuria -No NSAIDs -Continue IVF with NS Hyponatremia -Continue IVF with NS Hypokalemia -Replete as ordered Hypomagnesemia -Start MagOx qhs -IV Mag prn HTN with CKD -Hold Lisinopril DM II with CKD -Hold Metformin Case reviewed with Dr. Santana Hospitalist and ID notes reviewed Thank you kindly for the consultation
[2023-01-08] MEDS ORDERED: Levofloxacin500mg IV 500 MG/100 ML BAG IV SCH (16:00)
--- NOTE | 2023-01-08 16:25 | P.PN ---
Subjective Date of Service: 01/08/23 Chief Complaint: Severe peripheral arterial disease with osteomyelitis No acute events overnight. She denies any symptoms. Creatinine has improved to 1.88. Nephrology consulted - recommendations appreciated. She is pending placement into [facility]. Review of Systems 10-point ROS is otherwise unremarkable Physical Examination - Vital Signs Temperature: 97.7 F Blood Pressure: 122/59 Pulse: 72 Respirations: 16 Pulse Ox (%): 95 - Studies Medications List Reviewed: Yes Assessment And Plan - Plan - Physical Exam General: Alert, In no apparent distress, Oriented x3 HEENT: Atraumatic, Sclerae nonicteric Respiratory: Clear to auscultation bilaterally, Normal air movement Cardiovascular: No edema, Regular rate/rhythm, No murmurs Gastrointestinal: Normal bowel sounds, Soft, Non-distended, No tenderness Musculoskeletal: Left foot covered in clean dressing Integumentary: No rashes Neurological: Normal speech, Normal affect # Peripheral Artery Disease s/p Stenting complicated by Left First Metatarsal Osteomyelitis # Coronary Artery Disease s/p PCI # History of Cerebrovascular Accident # Hypertension # Dyslipidemia - Evaluation thus far: - Does not meet sepsis criteria - Left foot x-ray = "motion artifact limits the fine bony detail. No acute fracture. No malalignment. Calcaneal spurring. MRI more sensitive for detection of acute osteomyelitis." - MRI left foot = "small area of abnormal signal first metatarsal head could be degenerative or indicate osteomyelitis and should be correlated clinically. Cellulitis." - Left arterial Doppler = "left common femoral, superficial femoral, popliteal artery stent is occluded. Monophasic flow in the posterior tibial and dorsalis pedis arteries." - Management plan: - Consulted Cardiology and General Surgery - recommendations appreciated - She is not interested in amputation, so will likely require IV antibiotics + wound care - Infectious Diseases consulted- recommendations appreciated - Continue vancomycin + levofloxacin - Appreciate recommendations regarding outpatient therapy - Continue home atorvastatin, metoprolol, clopidogrel, rivaroxaban, lisinopril - Appreciate CM assistance with placement - Ms. Larson is interested in [facility] # KDIGO Stage II Acute Kidney Injury - Consulted Nephrology - recommendations appreciated - Creatinine = 1.10 -> 0.87 -> 0.88 -> 1.04 -> 1.19 -> 1.36 -> 1.65 -> 2.41 -> 1.88 - Urinalysis = pending - Renal ultrasound ordered - Monitor creatinine and urine output - Renally dose medications - Hold home torsemide, metoprolol, lisinopril given DALE # Chronic Compensated Diastolic Congestive Heart Failure with Preserved Ejection Fraction - Consult Cardiology - recommendations appreciated - Hold home torsemide, metoprolol, lisinopril given DALE - Daily weights - Strict I/O - Cardiac diet, 2 L fluid restriction, 2 g Na restriction # 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
[2023-01-08 18:42] LABS: Specific Gravity 1.009 (1.005-1.030); Urine Bacteria None Seen /HPF (<20); Urine Bilirubin NEGATIVE (Negative); Urine Blood Negative (Negative); Urine Clarity Clear (Clear); Urine Color Colorless (Yellow); Urine Glucose NEGATIVE (Negative); Urine Protein NEGATIVE (Negative); Urine RBC <5 /HPF (None Seen); Urine Urobilinogen Normal (Normal); Urine pH 6.5 (5.0-7.0)
[2023-01-08] MEDS: MAGNESIUM OXIDE 400 MG TAB PO SCH (21:00)
--- NOTE | 2023-01-08 22:02 | P.PN ---
Date of Service: 01/09/23 Subjective: Pt doing well with no new c/o ROS: 10 point ROS as noted above, otherwise negative Physical Exam: GEN: Alert, oriented, NAD CV: Regular rate & rhythm, no edema Pulm: Nonlabored respiraitons on room air ABD: Soft, nontender, nondistended MSK: Left foot with dressing in place C/D/I Neuro: No focal deficits Problem List: 1. Peripheral Artery Disease s/p Stenting complicated by Left First Metatarsal Osteomyelitis 2. CAD s/p PCI 3. History of CVA 4. Hypertension 5. Dyslipidemia 6. DALE 7. Chronic Compensated Diastolic CHF 8. DM@ with Peripheral Neuropathy 9. COPD, stable PLAN 1. Consulted Cardiology and General Surgery; continue with cardiac meds 2. She is not interested in amputation, so will likely require IV antibiotics + wound care 3. Continue vancomycin/levofloxacin x 6 weeks 4. Continue home atorvastatin, metoprolol, clopidogrel, rivaroxaban, lisinopril 5. Nephrology consulted 6. Renal u/s reviewed 7. Renal function reviewed 8. Hold Lisinopril 9. Correction scale insulin 10. Continue home medications
[2023-01-09] MEDS: MORPHINE 2 MG/ML SYR IV PRN ×4 (00:04→19:35)
[2023-01-09] MEDS: HYDROCODONE/APAP 5/325 MG TAB PO PRN ×3 (01:54→20:37)
[2023-01-09 05:54] LABS: Magnesium 2.1 mg/dL (1.6-2.4); Potassium 3.8 mEq/L (3.5-5.1)
[2023-01-09] MEDS: METOPROLOL TAR 25 MG TAB PO SCH ×2 (06:34→17:50)
[2023-01-09] MEDS: NA CHLORIDE 0.9% 1,000 ML IV SCH ×3 (06:36→16:19)
[2023-01-09] MEDS: INSULIN -REGULAR HUMAN 50 UNIT/0.5 ML ML SQ SCH ×4 (07:30→20:39)
--- NOTE | 2023-01-09 08:02 | RAD REPORT ---
EXAM DESCRIPTION: US - Renal Ultrasound-Complete - 01/08/2023 11:56 pm CLINICAL HISTORY: DALE Flank pain COMPARISON: Abdomen Exam Complete dated 02/24/2017 FINDINGS: Both kidneys are normal in size, shape and echotexture. The right kidney measures 9.8 x 4.0 x 4.0 cm. No hydronephrosis, focal mass or perinephric fluid. Sma ll benign renal cyst. The left kidney measures 11.0 x 5.0 x 4.8 cm. No hydronephrosis, focal mass or perinephric fluid. Sma ll benign renal cysts. The urinary bladder is incompletely distended without gross abnormality seen. IMPRESSION: Small benign renal cysts, otherwise negative study.
[2023-01-09] MEDS: ATORVASTATIN 40 MG TAB PO SCH (08:28)
[2023-01-09] MEDS: ROPINIROLE HCL 1 MG TAB PO SCH ×3 (08:28→20:38)
[2023-01-09] MEDS: GLUCERNA SHAKE 237 ML CAN PO SCH ×2 (08:28→20:39)
[2023-01-09] MEDS: CLOPIDOGREL 75 MG TABLET PO SCH (08:29)
[2023-01-09] MEDS: RIVAROXABAN 15 MG TABLET PO SCH (08:29)
[2023-01-09] MEDS: NICOTINE 21 MG/PAT TD SCH (08:29)
[2023-01-09] MEDS: PANTOPRAZOLE 40MG TABLET PO SCH (08:29)
--- NOTE | 2023-01-09 09:20 | P.PN ---
Date of Service: 01/09/23 Chief Complaint: Severe peripheral arterial disease with osteomyelitis Subjective: Patient seen and examined at bedside. Improving. Denies any new or worsening complaints. Pending [facility] approval. Physical Examination Temp Pulse Resp BP Pulse Ox 97.5 F 66 16 132/59 L 93 01/09/23 08:00 01/09/23 08:00 01/09/23 08:00 01/09/23 08:00 01/09/23 08:00 General: Alert, In no apparent distress, Oriented x3 HEENT: Atraumatic, Normocephalic. Poor dentition. Neck: JVD not distended Cardiovascular: No edema, Weak DP and PT pulses Gastrointestinal: Normal bowel sounds, Soft and benign Musculoskeletal: No clubbing. No contractures. Integumentary: Left foot Arterial ulcer/Diabetic ulcers. Dressing clean dry and intact. Neurological: Normal speech, Normal tone, Normal affect Laboratory Data - Reviewed Microbiology Data - Reviewed Imagings Data: - MRI Left Foot 12/29: "IMPRESSION: Images are degraded by patient motion artifact. Small area of abnormal signal first metatarsal head could be degenerative or indicate osteomyelitis and should be correlated clinically. Cellulitis." - Doppler LLE 12/29: " Left common femoral, superficial femoral, popliteal artery stent is occluded. Monophasic flow in the posterior tibial and dorsalis pedis arteries." Medications List Reviewed Assessment and Plan Problem List Osteomyelitis LLE Cellulitis LLE Peripheral Arterial Disease Coronary Artery Disease Congestive Heart Failure COPD Hyperlipidemia Hx CVA Diabetes Mellitus Type II Mild PCM Acute Kidney Injury * Allergies: Penicillin * Osteomyelitis Cellulitis of Left Lower Extremity - MRI Left Foot 12/29: "Small area of abnormal signal first metatarsal head could be degenerative or indicate osteomyelitis and should be correlated clinically. Cellulitis." - Doppler LLE 12/29: " Left common femoral, superficial femoral, popliteal artery stent is occluded. Monophasic flow in the posterior tibial and dorsalis pedis arteries." - Complicated by diabetes and peripheral arterial disease s/p stent placement x3 LLE which are occluded. Per reports, attempts to reopen have been unsuccessful. - Currently on Vancomycin and Levofloxacin IV (started 01/02) Blood cultures 12/29: no growth to date No leukocytosis. Afebrile DALE: Nephrology on case. Recommendations Pending [facility] approval. - Osteomyelitis: Continue antibiotic therapy x 6 weeks duration (Start date: 01/02 ; End date: 02/13). - Currently on Levaquin and Vancomycin. - PICC line in place - Continue current wound care to left foot Case discussed with Smooth Brooks
[2023-01-09] MEDS: COLLAGENASE 30 GM OINTMENT TOP SCH (09:42)
[2023-01-09] MEDS: MAGNESIUM OXIDE 400 MG TAB PO SCH (20:38)
--- NOTE | 2023-01-09 21:26 | P.PN ---
Date of Service: 01/09/23 Vital Signs Temp Pulse Resp BP Pulse Ox 98.1 F 65 16 132/60 95 01/09/23 16:00 01/09/23 16:00 01/09/23 16:00 01/09/23 16:00 01/09/23 16:00 Medications Acetaminophen (Acetaminophen 500 Mg Tab) 500 mg PO Q6H PRN PRN Reason: Pain scale 2-4 (Mild)/Fever Hydrocodone Bitart/Acetaminophen (Hydrocodone/Apap 5/325 Mg Tab) 1 tab PO Q6H PRN PRN Reason: Pain scale 5-7 (Moderate) Last Admin: 01/09/23 20:37 Dose: 1 tab Albuterol Sulfate (Albuterol 2.5 Mg/3 Ml Neb Angy) 2.5 mg NEB [id number] PRN PRN Reason: SHORTNESS OF BREATH Atorvastatin Calcium (Atorvastatin 40 Mg Tab) 40 mg PO DAILY [facility] Last Admin: 01/09/23 08:28 Dose: 40 mg Bismuth Subsalicylate (Bismuth Subsalicyl 262mg/15ml-240 Ml Btl) 262 mg PO Q6H PRN PRN Reason: INDIGESTION Last Admin: 01/08/23 08:48 Dose: 262 mg Calcium Carbonate/Glycine (Calcium Carbonate Chew 500mg Tab) 500 mg PO QID PRN PRN Reason: INDIGESTION Last Admin: 01/06/23 21:30 Dose: 500 mg Clopidogrel Bisulfate (Clopidogrel 75 Mg Tablet) 75 mg PO DAILY [facility] Last Admin: 01/09/23 08:29 Dose: 75 mg Collagenase (Collagenase 30 Gm Ointment) 1 appl TOP DAILY [facility] Last Admin: 01/09/23 09:42 Dose: 1 appl Dextrose (D10w 250 Ml Bag) 125 ml IV PRN PRN; Protocol PRN Reason: HYPOGLYCEMIA Enteral Nutritional Formula (Glucerna Shake 237 Ml Can) 237 ml PO BID [facility] Last Admin: 01/09/23 20:39 Dose: Not Given Gabapentin (Gabapentin 100 Mg Cap) 100 mg PO TID [facility] Glucagon (Glucagon 1 Mg/Vial) 1 mg IM 1X PRN; Protocol PRN Reason: HYPOGLYCEMIA Home Med (Fluticasone [Flovent Hfa 110*]) 2 appl IH PRN [facility] Hydralazine HCl (Hydralazine Hcl 20 Mg/Ml Vial) 10 mg IV Q6HP PRN PRN Reason: Titrate to SBP (MUST DEFINE) Last Admin: 01/02/23 16:46 Dose: 10 mg Vancomycin HCl 1 gm/ Sodium (Chloride) 250 mls @ 250 mls/hr IVPB Q48H [facility]; Protocol Stop: 02/13/23 09:01 Last Admin: 01/08/23 11:02 Dose: 250 mls Sodium Chloride (Ns 1000 Ml Ivbag) 1,000 mls @ 100 mls/hr IV .Q10H [facility] Last Admin: 01/09/23 16:19 Dose: Not Given Levofloxacin/Dextrose (Levaquin 250mg/50 Ml Ivpb) 250 mg in 50 mls @ 50 mls/hr IV Q48H [facility] Stop: 02/13/23 05:01 Insulin Human Regular (Insulin -Regular Human 50 Unit/0.5 Ml Ml) 0 unit SQ ACHS [facility]; Protocol Last Admin: 01/09/23 20:39 Dose: Not Given Magnesium Oxide (Magnesium Oxide 400 Mg Tab) 400 mg PO BEDTIME [facility] Last Admin: 01/09/23 20:38 Dose: 400 mg Metoprolol Tartrate (Metoprolol Tar 25 Mg Tab) 12.5 mg PO BID 6AM 6PM [facility] Last Admin: 01/09/23 17:50 Dose: 12.5 mg Morphine Sulfate (Morphine 2 Mg/Ml Syr) 2 mg IV Q6H PRN PRN Reason: Pain scale 8-10 (Severe) Last Admin: 01/09/23 19:35 Dose: 2 mg Nicotine (Nicotine 21 Mg/Pat) 21 mg TD DAILY [facility] Last Admin: 01/09/23 08:29 Dose: Not Given Ondansetron HCl (Ondansetron 4 Mg/2 Ml Vial) 4 mg IV Q8H PRN PRN Reason: NAUSEA / VOMITING Last Admin: 01/07/23 08:49 Dose: 4 mg Pantoprazole Sodium (Pantoprazole 40mg Tablet) 40 mg PO DAILY [facility]; Protocol Last Admin: 01/09/23 08:29 Dose: 40 mg Rivaroxaban (Rivaroxaban 15 Mg Tablet) 15 mg PO DAILY [facility] Last Admin: 01/09/23 08:29 Dose: 15 mg Ropinirole HCl (Ropinirole Hcl 1 Mg Tab) 4 mg PO TID [facility] Last Admin: 01/09/23 20:38 Dose: 4 mg Sodium Chloride (Flush Normal Saline 10 Ml) 10 ml IV BID [facility] Last Admin: 01/09/23 20:38 Dose: 10 ml Microbiology Results 12/29/22 12:28 Blood - Blood Aerobic Blood Culture - Final No growth in 5 days. 12/29/22 12:28 Blood - Blood Anaerobic Blood Culture - Final 12/29/22 12:20 Blood - Blood Aerobic Blood Culture - Final No growth in 5 days. 12/29/22 12:20 Blood - Blood Anaerobic Blood Culture - Final Assessment/ Plan: Nephrology No dyspnea No chest pain Feeling better No acute events overnight Vitals, medications, blood work and imaging reviewed in the chart. General: In no apparent distress, Oriented x3, Cooperative HEENT: Atraumatic Neck: Supple Respiratory: Clear to auscultation bilaterally, Normal air movement Cardiovascular: No edema, Regular rate/rhythm Gastrointestinal: Soft and benign, Non-distended Musculoskeletal: No clubbing, No contractures Integumentary: Skin breakdown, Tenderness/swelling, Diabetic ulcer Neurological: Normal speech Blood work reviewed in the chart. Imagings Data: EXAM DESCRIPTION: RAD - Chest Single View - 01/02/2023 4:43 pm CLINICAL HISTORY: Device placement PICC line placement IMPRESSION: PICC line with its tip in the superior vena cava EXAM DESCRIPTION: MRI - Foot Left Wo Cont - 12/29/2022 3:02 pm CLINICAL HISTORY: Left foot pain and swelling COMPARISON: X-ray December 29, 2022 TECHNIQUE: Axial, sagittal and coronal magnetic resonance imaging left foot FINDINGS: Images are degraded by patient motion artifact. Small area of abnormal signal involves the first metatarsal head. No additional clear areas of abnormal signal within the bones is noted. Diffuse edema within predominantly dorsal subcutaneous tissues probably a cellulitis. No soft tissue abscess seen IMPRESSION: Images are degraded by patient motion artifact Small area of abnormal signal first metatarsal head could be degenerative or indicate osteomyelitis and should be correlated clinically Cellulitis Conclusions/Impression: Stage II DALE in the setting of hypotension and vancomycin CKD III with Proteinuria -No NSAIDs -Continue IVF with NS Hyponatremia -Continue IVF with NS Hypokalemia -Replete as ordered Hypomagnesemia -Continue MagOx qhs -IV Mag prn HTN with CKD -Hold Lisinopril DM II with CKD -Hold Metformin Hospitalist and ID notes reviewed
[2023-01-09] MEDS: GABAPENTIN 100 MG CAP PO SCH (21:35)
[2023-01-10] MEDS: HYDROCODONE/APAP 5/325 MG TAB PO PRN ×2 (02:03→08:20)
[2023-01-10] MEDS ORDERED: Levofloxacin 250mg IV 250 MG/50 ML BAG IV SCH (05:00)
[2023-01-10] MEDS: METOPROLOL TAR 25 MG TAB PO SCH (06:00)
[2023-01-10] MEDS: RIVAROXABAN 15 MG TABLET PO SCH (06:01)
[2023-01-10] MEDS: CLOPIDOGREL 75 MG TABLET PO SCH (06:02)
[2023-01-10] MEDS: NA CHLORIDE 0.9% 1,000 ML IV SCH ×2 (06:22→14:00)
[2023-01-10] MEDS: MORPHINE 2 MG/ML SYR IV PRN (06:32)
[2023-01-10] MEDS: GLUCERNA SHAKE 237 ML CAN PO SCH (07:27)
[2023-01-10] MEDS: INSULIN -REGULAR HUMAN 50 UNIT/0.5 ML ML SQ SCH ×2 (07:30→11:30)
[2023-01-10] MEDS: NICOTINE 21 MG/PAT TD SCH (07:56)
[2023-01-10 08:02] LABS: Protime INR 1.15
[2023-01-10] MEDS: VANCOMYCIN 1 GM in NA CHLORIDE 0.9% 250 ML IVPB SCH (08:19)
[2023-01-10] MEDS: GABAPENTIN 100 MG CAP PO SCH ×2 (08:20→14:03)
[2023-01-10] MEDS: PANTOPRAZOLE 40MG TABLET PO SCH (08:20)
[2023-01-10] MEDS: ROPINIROLE HCL 1 MG TAB PO SCH ×2 (08:20→14:03)
[2023-01-10] MEDS: ATORVASTATIN 40 MG TAB PO SCH (08:20)
[2023-01-10] MEDS: COLLAGENASE 30 GM OINTMENT TOP SCH (08:56)
--- NOTE | 2023-01-10 09:39 | P.PN ---
Date of Service: 01/10/23 Chief Complaint: Severe peripheral arterial disease with osteomyelitis Subjective: Patient denies any new or worsening complaints. Family at bedside. No acute events reported overnight. Pending insurance approval for SNF. Physical Examination Temp Pulse Resp BP Pulse Ox 97.8 F 66 16 133/78 95 01/10/23 08:00 01/10/23 08:00 01/10/23 08:00 01/10/23 08:00 01/10/23 08:00 General: Alert, In no apparent distress, Oriented x3 HEENT: Atraumatic, Normocephalic. Poor dentition. Neck: JVD not distended Cardiovascular: No edema, Weak DP and PT pulses Gastrointestinal: Normal bowel sounds, Soft and benign Musculoskeletal: No clubbing. No contractures. Moves all extremities. Integumentary: Left foot Arterial ulcer/Diabetic ulcers. Dressing remains clean dry and intact. Neurological: Normal speech, Normal tone, Normal affect Laboratory Data - Reviewed Microbiology Data - Reviewed Imagings Data: - MRI Left Foot 12/29: "IMPRESSION: Images are degraded by patient motion artifact. Small area of abnormal signal first metatarsal head could be degenerative or indicate osteomyelitis and should be correlated clinically. Cellulitis." - Doppler LLE 12/29: " Left common femoral, superficial femoral, popliteal artery stent is occluded. Monophasic flow in the posterior tibial and dorsalis pedis arteries." Medications List Reviewed Assessment and Plan Problem List Osteomyelitis LLE Cellulitis LLE Peripheral Arterial Disease Coronary Artery Disease Congestive Heart Failure COPD Hyperlipidemia Hx CVA Diabetes Mellitus Type II Mild PCM Acute Kidney Injury * Allergies: Penicillin * Osteomyelitis Cellulitis of Left Lower Extremity - MRI Left Foot 12/29: "Small area of abnormal signal first metatarsal head could be degenerative or indicate osteomyelitis and should be correlated clinically. Cellulitis." - Doppler LLE 12/29: " Left common femoral, superficial femoral, popliteal artery stent is occluded. Monophasic flow in the posterior tibial and dorsalis pedis arteries." - Complicated by diabetes and peripheral arterial disease s/p stent placement x3 LLE which are occluded. Per reports, attempts to reopen have been unsuccessful. - Currently on Vancomycin and Levofloxacin IV (started 01/02) Blood cultures 12/29: no growth to date No leukocytosis. Afebrile DALE: Nephrology on case. Recommendations Continue current plan of care. Pending [facility] approval. - Osteomyelitis: Continue antibiotic therapy x 6 weeks duration (Start date: 01/02 ; End date: 02/13). - Currently on Levaquin and Vancomycin. - PICC line in place Case discussed with Smooth Brooks
[2023-01-10] MEDS ORDERED: HYDROMORPHONE HCL 0.5 MG/0.5 ML INJ IV PRN (09:47)
[2023-01-10] MEDS ORDERED: HYDROMORPHONE HCL 0.5 MG/0.5 ML INJ IV ONE (12:00)
--- NOTE | 2023-01-10 15:05 | P.DS ---
Discharge Date: 01/10/23 Disposition: TRANSFER TO SNF - MEDICAL Discharge Condition: GOOD Reason for Admission: Severe peripheral arterial disease with osteomyelitis Consultations: Cardiology, Dr. Grey: 1. Right foot cellulitis, likely there is osteomyelitis. She has severe diffuse peripheral vascular disease, not amenable to intervention. Recommend start IV antibiotics and if this does not heal, then patient might require [id number] amputation, much likely is going to be required. 2. Hypertension. Blood pressure is controlled. 3. Active smoker. Patient was counseled in detail to quit smoking as she has severe peripheral vascular disease. 4. Peripheral vascular disease, severe and diffuse and not amenable to intervention. Likely she will require amputation for the current foot infection. I will monitor the patient while she is in the hospital. Nephrology, Dr. Bhatt: 1. Stage II DALE in the setting of hypotension and vancomycin/CKD III with Proteinuria -No NSAIDs -Continue IVF with NS 2. Hyponatremia -Continue IVF with NS 3. Hypokalemia -Replete as ordered 4. Hypomagnesemia -Start MagOx qhs -IV Mag prn 5. HTN with CKD -Hold Lisinopril 6. DM II with CKD -Hold Metformin Infectious Disease, Dr. Delacruz 1. Osteomyelitis: Patient will require 6 weeks of IV antibiotics - Currently on Levofloxacin and Vancomycin (started 01/02 - Continue local wound care per Dr. Lawrence - Nutritional support as needed - Problems (1) Occlusion of stent of peripheral artery Current Visit: Yes Status: Acute (2) Osteomyelitis Current Visit: Yes Status: Acute (3) H/O right coronary artery stent placement Current Visit: No Status: Acute (4) PAD (peripheral artery disease) Current Visit: No Status: Acute (5) Anemia Onset Date: 05/07/15 Current Visit: No Status: Chronic Qualifiers: Anemia type: other cause Other causes of anemia: chronic disease, other Qualified Code(s): D63.8 - Anemia in other chronic diseases classified elsewhere (6) COPD (chronic obstructive pulmonary disease) Current Visit: No Status: Chronic Qualifiers: (7) Diabetes mellitus Current Visit: No Status: Chronic Qualifiers: (8) Hypertension Current Visit: No Status: Chronic Qualifiers: Brief History of Present Illness: Patient is a 72-year-old female who came to the hospital with severe peripheral arterial disease. patient has a history of stent placement and according to Cardiology patient's stent has been stenotic and they tried to work with reopening it but it has been unsuccessful. Patient unlikely to be able to get distal stent reopen. Patient will need MRI of the foot to evaluate for infection. The foot is warm and tender. Will start patient on IV antibiotics and general surgery consultation. Hospital Course: Patient was worked up extensively. Patient had MRI which revealed osteomyelitis. Patient was given Levaquin and vancomycin for 6 weeks. Patient's family was given the option of amputation but they decided to proceed with conservative management. Long-term shrestha since patient has occluded stent and poor peripheral arterial circulation patient will probably end up needing a below-knee amputation. At this time will try to salvage the leg and do IV antibiotics and work on revascularization as an outpatient. If we are unsuccessful with revascularization her IV antibiotic regimen then a below-knee amputation will probably be what we proceed with. Family understands this and they do understand that it is imperative that she refrain from tobacco use. Will continue with anticoagulation and anti-platelet therapy along with statin therapy. Strict blood pressure control. Monitor renal function closely. Patient will be discharged to swing the swing bed. Vital Signs/Physical Exam: Temp Pulse Resp BP Pulse Ox 97.8 F 66 16 133/78 95 01/10/23 08:00 01/10/23 08:00 01/10/23 08:00 01/10/23 08:00 01/10/23 08:00 General: Alert, In no apparent distress, Oriented x3 Laboratory Data at Discharge: WBC 7.90 thou/uL (4.3-10.9) 01/03/23 07:15 Hgb 12.2 g/dL (12.0-15.0) D 01/03/23 07:15 Hct 36.6 % (36.0-45.0) 01/03/23 07:15 Plt Count 306 thou/uL (152-406) 01/03/23 07:15 PT 12.6 SECONDS (9.5-12.5) H 01/10/23 07:48 INR 1.15 01/10/23 07:48 Sodium 133 mEq/L (136-145) L 01/09/23 05:00 Potassium 3.8 mEq/L (3.5-5.1) 01/09/23 05:00 BUN 38 mg/dL (7-18) H 01/09/23 05:00 Creatinine 1.37 mg/dL (0.55-1.02) H 01/09/23 05:00 Glucose 122 mg/dL (74-106) H 01/09/23 05:00 Phosphorus 2.9 mg/dL (2.5-4.9) 01/08/23 05:30 Magnesium 2.1 mg/dL (1.6-2.4) 01/09/23 05:00 Total Bilirubin 0.4 mg/dL (0.2-1.0) 01/08/23 09:05 AST 34 U/L (15-37) 01/08/23 09:05 ALT 22 U/L (13-56) 01/08/23 09:05 Alkaline Phosphatase 80 U/L (45-117) 01/08/23 09:05 Imagings Data: MRI of the foot: IMPRESSION: Images are degraded by patient motion artifact Small area of abnormal signal first metatarsal head could be degenerative or indicate osteomyelitis and should be correlated clinically Cellulitis Home Medications: Ropinirole HCl 4 mg PO TID 05/07/15 Atorvastatin Calcium [Lipitor] 40 mg PO DAILY 03/04/21 Fluticasone [Flovent Hfa 110*] 2 appl IH PRN 03/04/21 Albuterol Neb [Proventil 0.083% Neb Soln] 2.5 mg NEB Q6HP PRN #60 amp 10/08/22 Hydrocodone 10/APAP 325 [[place] 10/325*] 1 tab PO Q6H PRN #30 tab 10/08/22 ALPRAZolam [Xanax*] 0.5 mg PO BID 10/12/22 Pantoprazole [Protonix Tab*] 40 mg PO DAILY 10/12/22 Rivaroxaban [Xarelto*] 15 mg PO DAILY 10/12/22 Clopidogrel Bisulfate [Plavix*] 75 mg PO DAILY #30 tab 10/13/22 Metoprolol Tartrate [Lopressor*] 12.5 mg PO BID 6AM 6PM #30 tab 10/13/22 Collagenase [Santyl Ointment*] 1 appl TOP DAILY #1 tube 01/10/23 Gabapentin [Neurontin*] 100 mg PO TID #0 cap 01/10/23 Glucerna Shake [Glucerna*] 237 ml PO BID can 01/10/23 Magnesium Oxide [Mag 0X*] 400 mg PO BEDTIME tab 01/10/23 Nicotine [Nicoderm*] 21 mg TD DAILY 01/10/23 New Medications: Collagenase [Santyl Ointment*] 1 appl TOP DAILY #1 tube Physician Discharge Instructions: OK TO DC to Swing BED with PICC line FOLLOW-UP WITH PRIMARY CARE PROVIDER IN 1-2 WEEKS FOLLOW-UP WITH CARDIOLOGY IN 1-2 WEEKS FOLLOW-UP WITH SURGERY, Dr. Lawrence, IN 1-2 WEEKS RETURN TO THE ER IF symptoms worsens CALL DR. RIVERA AT [phone] IF ANY QUESTIONS REGARDING HOSPITAL STAY. PLEASE CALL THE FLOOR AT [phone] IF ANY MEDICATION OR NURSING QUESTIONS. Continue with physical therapy at the swing bed. Diet: AHA Activity: Fall precautions Followup: Gina Maya DO [Primary Care Provider] - Time spent managing pt's care (in minutes): 35
[2023-01-10 17:17] VITALS: BP 172/71; TEMP 97.3
--- NOTE | 2023-01-10 22:12 | P.PN ---
Date of Service: 01/10/23 Vital Signs Temp Pulse Resp BP Pulse Ox 97.3 F 58 16 172/71 H 95 01/10/23 16:00 01/10/23 16:00 01/10/23 16:00 01/10/23 16:00 01/10/23 16:00 Microbiology Results 12/29/22 12:28 Blood - Blood Aerobic Blood Culture - Final No growth in 5 days. 12/29/22 12:28 Blood - Blood Anaerobic Blood Culture - Final 12/29/22 12:20 Blood - Blood Aerobic Blood Culture - Final No growth in 5 days. 12/29/22 12:20 Blood - Blood Anaerobic Blood Culture - Final Assessment/ Plan: Nephrology No dyspnea No chest pain Feeling better No acute events overnight Vitals, medications, blood work and imaging reviewed in the chart. General: In no apparent distress, Oriented x3, Cooperative HEENT: Atraumatic Neck: Supple Respiratory: Clear to auscultation bilaterally, Normal air movement Cardiovascular: No edema, Regular rate/rhythm Gastrointestinal: Soft and benign, Non-distended Musculoskeletal: No clubbing, No contractures Integumentary: Skin breakdown, Tenderness/swelling, Diabetic ulcer Neurological: Normal speech Blood work reviewed in the chart. Imagings Data: EXAM DESCRIPTION: RAD - Chest Single View - 01/02/2023 4:43 pm CLINICAL HISTORY: Device placement PICC line placement IMPRESSION: PICC line with its tip in the superior vena cava EXAM DESCRIPTION: MRI - Foot Left Wo Cont - 12/29/2022 3:02 pm CLINICAL HISTORY: Left foot pain and swelling COMPARISON: X-ray December 29, 2022 TECHNIQUE: Axial, sagittal and coronal magnetic resonance imaging left foot FINDINGS: Images are degraded by patient motion artifact. Small area of abnormal signal involves the first metatarsal head. No additional clear areas of abnormal signal within the bones is noted. Diffuse edema within predominantly dorsal subcutaneous tissues probably a cellulitis. No soft tissue abscess seen IMPRESSION: Images are degraded by patient motion artifact Small area of abnormal signal first metatarsal head could be degenerative or indicate osteomyelitis and should be correlated clinically Cellulitis Conclusions/Impression: Stage II DALE in the setting of hypotension and vancomycin CKD III with Proteinuria -No NSAIDs Hyponatremia -Encourage nutrition Hypokalemia -Replete as ordered Hypomagnesemia -Continue MagOx qhs -IV Mag prn HTN with CKD -Hold Lisinopril DM II with CKD -Hold Metformin [place] Hospitalist and ID notes reviewed
== END 2023-01-10 18:24 | DRG 638 ==
LOC: ER 09:52 → ERHOLD 13:03 → 4TH 15:12
PROVIDERS: ADMIT Hospitalist; ATTEND Hospitalist
PROC: 02HV33Z Insertion of Infusion Device into Superior Vena Cava, Percutaneous Approach (ICD-10-PCS; principal; 2023-01-02)
DX: E11.69 Type 2 diabetes mellitus with other specified complication (principal); E44.1 Mild protein-calorie malnutrition; I13.0 Hypertensive heart and chronic kidney disease with heart failure and stage 1 through stage 4 chronic kidney disease, or unspecified chronic kidney disease; L03.116 Cellulitis of left lower limb; I50.32 Chronic diastolic (congestive) heart failure; M86.172 Other acute osteomyelitis, left ankle and foot; E87.1 Hypo-osmolality and hyponatremia; N17.9 Acute kidney failure, unspecified; E11.22 Type 2 diabetes mellitus with diabetic chronic kidney disease; E11.51 Type 2 diabetes mellitus with diabetic peripheral angiopathy without gangrene; E11.42 Type 2 diabetes mellitus with diabetic polyneuropathy; E11.621 Type 2 diabetes mellitus with foot ulcer; N18.30 Chronic kidney disease, stage 3 unspecified; L97.529 Non-pressure chronic ulcer of other part of left foot with unspecified severity; D63.1 Anemia in chronic kidney disease; D63.8 Anemia in other chronic diseases classified elsewhere; I77.9 Disorder of arteries and arterioles, unspecified; E83.42 Hypomagnesemia; E87.6 Hypokalemia; J44.9 Chronic obstructive pulmonary disease, unspecified; E78.00 Pure hypercholesterolemia, unspecified; I25.10 Atherosclerotic heart disease of native coronary artery without angina pectoris; F17.210 Nicotine dependence, cigarettes, uncomplicated; I25.2 Old myocardial infarction; Z88.0 Allergy status to penicillin; Z95.5 Presence of coronary angioplasty implant and graft; Z71.6 Tobacco abuse counseling; Z79.02 Long term (current) use of antithrombotics/antiplatelets; Z79.84 Long term (current) use of oral hypoglycemic drugs; Z86.73 Personal history of transient ischemic attack (TIA), and cerebral infarction without residual deficits; Z68.20 Body mass index [BMI] 20.0-20.9, adult; Z79.01 Long term (current) use of anticoagulants; Z98.51 Tubal ligation status; Z90.49 Acquired absence of other specified parts of digestive tract; Z79.899 Other long term (current) drug therapy
CPT/HCPCS: 36415; 36569; 71045; 76770; 80048; 80053; 80202; 81001; 82947; 83735; 84100; 84145; 84484; 85025; 85610; 86140; 87040; 93926; 96374; 96375; 97161; 97530; 97542; 99285; J0360; J1170; J2270; J2405; J3475; J3590; J7030; J7050

== ENCOUNTER 2024-01-26 00:06 | Emergency (ER) | payer OTHER ==
[2024-01-26] MEDS ORDERED: EPINEPHrine 1 MG/10 ML SYR IV ONE (00:07)
[2024-01-26] MEDS ORDERED: ATROPINE SULF 1 MG/10 ML SYR IV ONE (00:07)
[2024-01-26] MEDS ORDERED: NA CHLORIDE 0.9% 1,000 ML IV ONE (00:07)
[2024-01-26] MEDS ORDERED: DOPAMINE/D5W 400 MG/250 ML BAG IV ONE (00:07)
[2024-01-26] MEDS ORDERED: MIDAZOLAM HCL IN 0.9 % NACL/PF 100 MG/100 ML BAG IVPB ONE (00:24)
[2024-01-26] MEDS ORDERED: NOREPINEPHRINE BITARTRATE/D5W 4 MG/250 ML KIT IV ONE (00:37)
[2024-01-26] MEDS ORDERED: TENECTEPLASE 50 MG/10 ML VIAL IV ONE (00:42)
[2024-01-26 00:48] LABS: Arterial Blood Carboxyhemoglob 4.3 % (0-1.5); Blood Gas Oxyhemoglobin 92.9 % (94-97); Blood Gas THB 13.2 g/dl (12-18); Blood O2 Saturation 98.8 % (92-98.5)
[2024-01-26 00:53] LABS: Absolute Basophils 0.1 K/uL (0-0.5); Absolute Eosinophils 0.2 K/uL (0-0.5); Absolute Lymphocytes (CBC) 7.6 K/uL (0.7-4.9); Absolute Monocytes 0.6 K/uL (0.1-1.3); Absolute Neutrophil 5.2 K/uL (1.8-8.0); Basophils % 0.6 % (0-1.3); Eosinophils % 1.7 % (0-4.4); Hematocrit 40.5 % (36.0-45.0); Hemoglobin 12.6 g/dL (12.0-15.0); Lymphocytes % 55.2 % (15.3-44.8); MCH 29.2 pg (27.0-35.0); MCHC 31.1 g/dL (32.0-36.0); MPV 8.6 fL (7.6-11.3); Monocytes % 4.4 % (3.3-12.3); Neutrophils % 38.1 % (41.7-73.7); Platelets 256 thou/uL (152-406); Red Cell Distribution Width 17.8 % (12.1-15.2)
[2024-01-26 00:56] LABS: PT Prothrombin Time 10.8 SECONDS (9.4-12.5); Protime INR 0.96
[2024-01-26] MEDS ORDERED: HEPARIN 5000 UNIT/ML 1 ML VIAL ONE (01:11)
[2024-01-26] MEDS ORDERED: HEPARIN/D5W 25,000 UNIT/500 ML BAG IV ONE (01:11)
[2024-01-26 01:18] LABS: ALT/SGPT 50 U/L (13-56); AST/SGOT 52 U/L (15-37); Albumin 2.5 g/dL (3.4-5.0); Albumin/Globulin Ratio 0.8 (1.1-1.8); Alkaline Phosphatase 132 U/L (45-117); Anion Gap 15.9 mEq/L (5.0-15.0); BUN Blood Urea Nitrogen 31 mg/dL (7-18); Bicarbonate 30 mEq/L (21-32); Bilirubin Direct < 0.2 mg/dL (0-0.2); Bilirubin Total 0.2 mg/dL (0.2-1.0); Globulin 3.2 g/dL (2.3-3.5); Glomerular Filtration Rate 37 ml/min (=/>90); Glucose Level 315 mg/dL (74-106); Magnesium 2.1 mg/dL (1.6-2.4); NT PRO-BNP 1278 pg/mL (<450); Potassium 3.9 mEq/L (3.5-5.1); Protein, Total 5.7 g/dL (6.4-8.2); Sodium Level 143 mEq/L (136-145); Troponin High Sensitivity 15.3 pg/mL (<58.9)
--- NOTE | 2024-01-26 01:23 | ER ---
Nurse's Notes [facility] Name: Mukul Larson Age: 73 yrs Sex: Female : 1950 Arrival Date: 01/26/2024 Time: 00:06 Bed 4 Private MD: Diagnosis: Cardiac arrest, respiratory failure, acute inferior ST elevated MO, cardiogenic shock Presentation: 01/25 00:06 Chief complaint: Patient's son or daughter states: sudden onset just prior to arrival ss of difficulty breathing and chest pain. Daughter drove patient to ER, where patient was noted to have agonal respirations upon arrival to ED. Placed in wheelchair and rushed to trauma room 4 where patient became apneic and pulseless. CPR initiated at this time. Care prior to arrival: None. Compressions began at 00:06. 00:06 Acuity: APOLONIA 1 ss 00:06 Method Of Arrival: Wheelchair ss 01:54 Coronavirus screen: At this time, the client does not indicate any symptoms associated bm8 with coronavirus-19. Ebola Screen: Patient negative for fever greater than or equal to 101.5 degrees Fahrenheit, and additional compatible Ebola Virus Disease symptoms Patient denies exposure to infectious person. Patient denies travel to an Ebola-affected area in the 21 days before illness onset. No symptoms or risks identified at this time. Initial Sepsis Screen: Does the patient meet any 2 criteria? No. Patient's initial sepsis screen is negative. Does the patient have a suspected source of infection? No. Patient's initial sepsis screen is negative. Risk Assessment: Do you want to hurt yourself or someone else? Unable to obtain. Onset of symptoms is unknown. Triage Assessment: 00:06 Pain: Unable to use pain scale. Patient is unresponsive. EENT: No deficits noted. No bm8 signs and/or symptoms were reported regarding the EENT system. Neuro: Level of Consciousness is unresponsive. Cardiovascular: Capillary refill is > 3 seconds in bilateral fingers toes Rhythm is asystole. Respiratory: Airway is compromised Respiratory effort is gasping, weak, Respiratory pattern is agonal. GI: No signs and/or symptoms were reported involving the gastrointestinal system. : No signs and/or symptoms were reported regarding the genitourinary system. Derm: No signs and/or symptoms reported regarding the dermatologic system. Musculoskeletal: No signs and/or symptoms reported regarding the musculoskeletal system. 01:54 General: Appears distressed. bm8 Historical: - Allergies: 00:23 PENICILLINS; ss - PMHx: 00:23 Anxiety; CAD; CHF; COPD; CVA; Diabetes - NIDDM; High Cholesterol; Hypertension; MO; ss - PSHx: 00:23 cardiac stent; ss - Immunization history:: Adult Immunizations unknown. - Infectious Disease History:: Denies. - Family history:: not pertinent. - Social history:: Smoking status: unknown. Screenin:06 Abuse screen: Denies threats or abuse. Nutritional screening: No deficits noted. bm8 Tuberculosis screening: No symptoms or risk factors identified. 01:25 [facility] ED Fall Risk Assessment (Adult) History of falling in the last 3 months, bm8 including since admission No falls in past 3 months (0 pts) Confusion or Disorientation Yes (5 pts) Intoxicated or Sedated Yes (3 pts) Impaired Gait Yes (1 pt) Mobility Assist Device Used Yes (1 pt) Altered Elimination Yes (1 pt) Score/Fall Risk Level 3 or more points = High Risk Oriented to surroundings, Maintained a safe environment, Educated pt \T\ family on fall prevention, incl call for assistance when getting out of bed, Assessed \T\ reinforced patient's understanding of fall precautions, Hourly rounding (assess needs \T\ fall precautionary measures) done, Used ambulatory aids as needed (educated on \T\ assisted with), Used gait belt as appropriate. Assessment: 00:06 Reassessment: No pulse, CPR initiated by ED staff. ss 00:06 CPR assessment: unresponsive, agonal respirations, no respiratory effort, cyanotic, bm8 pale, pulses present w/ compressions. 00:06 Cardiac rhythm is asystole. General: Appears distressed, Behavior is unresponsive. bm8 Neuro: Level of Consciousness is unresponsive. Cardiovascular: Capillary refill is > 3 seconds in bilateral fingers toes Rhythm is asystole. Respiratory: Airway is compromised Respiratory effort is weak, Respiratory pattern is agonal. 00:09 Reassessment: Pulse check, faint carotid pulse noted. ss 00:10 Reassessment: No pulse. CPR resumed. ss 00:13 Reassessment: Pulse check, No pulse, asystole. CPR resumed. ss 00:16 Reassessment: Pulse check, sinus shoshana. ss 00:18 Reassessment: No pulse, CPR resumed. ss 00:20 Reassessment: + pulse, SVT. ss 01:36 Reassessment: report to CONCEPCIÓN Brasher at [facility]. Pain: Unable to use pain scale. bm8 Patient is unresponsive. Vital Signs: 00:06 BP 0 / 0; Pulse 0; Resp 2; Weight 53.63 kg; Height 4 ft. 11 in. ; Pain 0/10; bm8 00:28 BP 87 / 53; Pulse 70; Resp 19; Pulse Ox 100% on ETT vent; Pain 0/10; bm8 00:45 BP 87 / 63; Pulse 79; Resp 21; Pulse Ox 100% on ETT vent; Pain 0/10; bm8 01:00 BP 97 / 68; Pulse 90; Resp 15; Pulse Ox 94% ; Pain 0/10; bm8 01:15 BP 108 / 88; Pulse 102; Resp 28 A; Temp 97; Pulse Ox 90% on ETT vent; ss 01:25 BP 172 / 94; Pulse 147; Resp 25; Pulse Ox 100% on ETT vent; Pain 0/10; bm8 00:06 Body Mass Index 23.88 (53.63 kg, 149.86 cm) bm8 00:06 Pain Scale: Adult bm8 00:28 Pain Scale: Adult bm8 00:45 Pain Scale: Adult bm8 01:00 Pain Scale: Adult bm8 01:25 Pain Scale: Adult bm8 Tg Coma Score: 01:06 Eye Response: none(1). Motor Response: none(1). Verbal Response: none(1). Total: 3. sp4 01:25 Eye Response: none(1). Modifying Factors: Intubated. Motor Response: none(1). Verbal bm8 Response: none(1). Total: 3. ED Course: 00:06 Patient has correct armband on for positive identification. Placed in gown. Bed in low bm8 position. Side rails up X2. Adult w/ patient. 00:06 Arm band placed on right wrist. bm8 00:09 Patient arrived in ED. gm2 00:11 Assisted provider with intubation using 7.5 mm ETT via oral route. Intubated by Telly Hobbs MD Placement verified by CO2 detector w/ + color change, auscultating bilateral breath sounds. 00:14 Inserted intraosseous access in left, using aseptic technique tibial tuberosity. ss 00:15 Assisted provider with central line placement. Set up central line tray. Triple lumen ss line placed in right femoral. Line placed by Telly Hobbs MD Placement verified by blood return, Dressed with Tape, Tegaderm, Blood was collected. 00:23 Triage completed. ss 00:23 Telly Hobbs MD is Attending Physician. sb4 00:30 Initial lab(s) drawn, by me, sent to lab. First set of blood cultures drawn by me, EKG bm8 done, by ED staff, reviewed by Telly Hobbs MD COVID swab sent to lab. Patient transferred, IV remains in place. 00:42 XRAY Chest (1 view) In Process Unspecified. EDMS 00:59 Edgar Salinas, RN is Primary Nurse. bm8 01:00 Levine cath inserted, using sterile technique, 18 Fr., by ma, balloon inflated, to rv1 gravity drainage, Patient tolerated well. 01:00 Lactate w/ 2H reflex if indic. Sent. rv1 01:00 Blood Culture Adult (2) Sent. rv1 01:01 Basic Metabolic Panel Sent. rv1 01:01 CBC with Diff Sent. rv1 01:01 LFT's Sent. rv1 01:01 Magnesium Sent. rv1 01:01 NT PRO-BNP Sent. rv1 01:01 Troponin HS Sent. rv1 01:14 SARS RAPID Sent. rv1 01:51 Patient has correct armband on for positive identification. Placed in gown. Bed in low bm8 position. Call light in reach. Side rails up X2. Adult w/ patient. Client placed on continuous cardiac and pulse oximetry monitoring. NIBP monitoring applied. youth nutritional monitor on. Pulse ox on. NIBP on. 01:56 Provided Education on: need for transfer. bm8 01:59 0045 called [facility] ke's for transfer talked to Trace. 0116 Dr. Donny Jorgensen accepted sp pt [facility]. Alba's 6 admin approval NASH Hernandez. 8 Cully D report # [phone] [id number] called [employer] flight talked to RUSLAN. Administered Medications: 00:14 Drug: EPINEPHrine 0.1mg/mL 1:10,000 1 mg IVP once {Note: L IO.} Route: IVP; Site: Other;ss 01:59 Follow up: Response: No adverse reaction bm8 00:15 Drug: EPINEPHrine 0.1mg/mL 1:10,000 1 mg IVP once {Note: IO.} Route: IVP; Site: Other; ss 01:59 Follow up: Response: No adverse reaction bm8 00:15 Drug: Atropine 1 mg IVP once Route: IVP; Site: right femoral; ss 01:59 Follow up: Response: No adverse reaction bm8 00:16 Drug: Sodium Bicarbonate 1 amp IVP once; (50 mL); equals 50 mEq Route: IVP; Site: right ss femoral; :59 Follow up: Response: No adverse reaction bm8 00:18 Drug: EPINEPHrine 0.1mg/mL 1:10,000 1 mg IVP once Route: IVP; Site: right femoral; ss 01:58 Follow up: Response: No adverse reaction bm8 00:20 Drug: Sodium Bicarbonate 1 amp IVP once; (50 mL); equals 50 mEq Route: IVP; Site: right ss femoral; 01:58 Follow up: Response: No adverse reaction bm8 00:30 Drug: Midazolam IVP or IV 0.01 mg/kg/h IV at calculated rate See Administration bm8 Instructions; (Standard concentration: 100 mg / 100 mL NS); Recommended max rate 0.1 mg/kg/hr; Titrate 0.01 mg/kg/hr as often as every 30 minutes to achieve goal (see titration policy); Goal parameter RASS 0 to -2 Route: IV; Rate: calculated rate; Site: Other; 02:02 Follow up: Response: No adverse reaction; IV Status: Infusion continued upon transfer bm8 00:30 Drug: Norepinephrine IV 0.1 mcg/kg/min IV at calculated rate See Administration bm8 Instructions; (Standard concentration 4 mg / 250 mL D5W); Recommended max rate 3 mcg/kg/min; Titrate 0.05 mcg/kg/min as often as every 5 minutes to achieve goal (see titration policy); Goal parameter MAP greater than 65 mmHg. Route: IV; Rate: calculated rate; Site: Other; 02:01 Follow up: Response: No adverse reaction; IV Status: Infusion continued upon transfer bm8 00:40 Drug: NS 0.9% IV 1000 ml IV at 1 bolus Per protocol; 1000 mL bolus Route: IV; Rate: 1 bm8 bolus; Site: Other; 02:03 Follow up: Response: No adverse reaction; IV Status: Completed infusion; IV Intake: bm8 1000ml 01:05 Drug: TNK FOR STROKE - Tenecteplase IV (Administer 10 ml NS flush BEFORE and bm8 AFTER tenecteplase) 0.25 mg/kg IV at per protocol once; MAX DOSE 25 mg, IVP over 5 seconds {Co-Signature: [email or web address] (Tad Lock RN).} Route: IV; Rate: per protocol; Site: Other; 01:57 Follow up: Response: No adverse reaction; IV Status: Completed infusion; IV Intake: 6ml bm8 01:20 Drug: Heparin (MO Drip) 12 units/kg/hr - ([place] [address] units, D5W IV 500 ml) IV at bm8 calculated rate Per protocol; Max initial rate 1000 units/hr {Co-Signature: [email or web address] (Tad Lock RN).} {Note: io.} Route: IV; Rate: calculated rate; Site: Other; 01:58 Follow up: Response: No adverse reaction; IV Status: Infusion continued upon transfer bm8 01:21 Drug: Heparin (MO-Bolus No thrombolytic) - HEParin IVP 60 units/kg IVP once; Max 5000 bm8 units {Co-Signature: [email or web address] (Tad Lock RN).} Route: IVP; Site: Other; :58 Follow up: Response: No adverse reaction bm8 01:58 Not Given (Other Intervention Used): aspirinsuppository 300 mg KY once bm8 02:00 Not Given (Other Intervention Used): calcium gluconate1 grams IVPB once over 60 mins; bm8 (mix in NS 100 mL) 02:00 Not Given (Other Intervention Used): magnesium sulfate2 grams IVPB once over 2 hrs bm8 02:01 Drug: Mupirocin Topical Ointment 2 % 1 application Topical once Route: Topical; Site: bm8 affected area; 02:03 Not Given (Other Intervention Used): ns 0.9% 1000 ml IV at 125 ml/hr continuous bm8 Medication: 01:25 VIS not applicable for this client. bm8 Point of Care Testing: Blood Glucose: 00:14 Blood Glucose: 223 mg/dL; ss Ranges: Intake: 01:57 IV: 6ml; Total: 6ml. bm8 02:03 IV: 1000ml; Total: 1006ml. bm8 Outcome: 00:30 Transferred by helicopter to [facility], Transfer form completed. bm8 X-rays sent w/ patient. 00:30 critical 00:30 Discharge instructions given to family, Instructed on the need for transfer, Demonstrated understanding of instructions, follow-up care, medications, 01:23 ER care complete, transfer ordered by . sp4 01:56 Outcome pt transferred to [facility] bm8 02:13 Patient left the ED. bm8 Signatures: Dispatcher [employer] EDMS Eliana Marquez Shelby, CONCEPCIÓN RN ss Breanna Galindo, PAZenonC PA-C sb4 Maryam Rodrigues rvTelly Hennessy MD MD sp4 Maggie Fregoso gm2 Edgar Salinas, RN RN bm8 Tad Lock RN [email or web address] Corrections: (The following items were deleted from the chart) 00:23 00:06 Compressions began at 00:04. ss 00:30 00:11 Assisted provider with central line placement. Set up central line tray. Triple ss lumen line placed in right femoral. Line placed by Telly Hobbs MD Placement verified by blood return, Dressed with Tape, Tegaderm, Blood was collected. ss 00:31 00:31 EPINEPHrine 1:10,000 IVP 1:10,000 1 mg IVP in Other; IO ss ss 00:37 00:36 Reassessment: No pulse, CPR initiated by ED staff [facility] 01:08 00:06 Chief complaint: Patient's son or daughter states: sudden onset just prior to ss arrival of difficulty breathing and chest pain. ss
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
[2024-01-26 01:27] LABS: SARS-CoV-2 Antigen CONTROL BLUE LINE VIS/BG OK; SARS-CoV-2 Antigen Rapid Res Negative (Negative)
[2024-01-26 01:52] LABS: Blood Morphology Comment NOT SEEN (NOT SEEN); Platelet Estimate ADEQ; White Blood Cell Scan OK (OK)
[2024-01-26 02:44] VITALS: TEMP 97
[2024-01-26 02:45] VITALS: BP 172/94; O2SAT 100
--- NOTE | 2024-01-26 13:52 | EKG ---
Test Date: 2024-01-26 Test Time: 00:25:19 Library Information Technician: RV MEASUREMENT RESULTS: Intervals: Rate: 160 [place]: QRSD: 88 QT: 316 QTc: 515 [place]: P: [place]: QRS: 94 T: 92 INTERPRETIVE STATEMENTS: Atrial fibrillation ST elevation, consider inferior injury or acute infarct ACUTE [place] Consider right ventricular involvement in acute inferior infarct Abnormal ECG Compared to ECG 11/11/2022 04:49:22 ST (T wave) deviation now present Myocardial infarct finding now present Myocardial infarct finding now present Sinus rhythm no longer present Electronically Signed On 01-26-24 13:51:22 CDT by Eleazar Benz
--- NOTE | 2024-01-28 12:51 | RAD REPORT ---
EXAM DESCRIPTION: Chest Single View RadLex: XR CHEST 1 VIEW CLINICAL HISTORY: 73 years Female, CHEST PAIN COMPARISON: 07/14/2023 FINDINGS: Single portable AP supine view of the chest. Endotracheal tube tip projects approximately 4.3 cm above the michael. Normal size of the cardiac silhouette. There is some bilateral coarse inters titial prominence, grossly similar to prior examination. No new consolidation. No pleural effusion or pneumothorax identified within the limitations of supine technique. No acute osseous abnormality. IMPRESSION: 1. Endotracheal tube tip projects approximately 4.3 cm above the michael. 2. No significant change in appearance of the lungs with coarse interstitial prominence. Electronically signed by: Ana Maria Dela Cruz MD 01/26/2024 01:25 AM CDT RP Due to temporary technical issues with the PACS/Fluency reporting system, reports are being signed by the in house radiologist without review as a courtesy to ensure prompt reporting. The interpreting r adiologist is fully responsible for the content of the report.
--- NOTE | 2024-01-29 12:47 | EKG ---
Test Date: 2024-01-26 Test Time: 01:05:44 String Studies Director: RV MEASUREMENT RESULTS: Intervals: Rate: 75 [place]: QRSD: 98 QT: 374 QTc: 417 [place]: P: [place]: QRS: 89 T: 83 INTERPRETIVE STATEMENTS: Atrial fibrillation with premature ventricular or aberrantly conducted complexes ST elevation, consider inferior injury or acute infarct ACUTE [place] Consider right ventricular involvement in acute inferior infarct Abnormal ECG Compared to ECG 01/26/2024 00:25:19 Ventricular premature complex(es) now present ST (T wave) deviation still present Myocardial infarct finding still present Myocardial infarct finding still present Electronically Signed On 01-29-24 12:43:42 CDT by Eleazar Benz
== END 2024-01-26 02:13 | disposition short-term general hospital (02) ==
LOC: ER 00:06
PROC: 06HM33Z Insertion of Infusion Device into Right Femoral Vein, Percutaneous Approach (ICD-10-PCS; principal; 2024-01-26)
DX: I46.9 Cardiac arrest, cause unspecified (principal); R57.0 Cardiogenic shock; I21.19 ST elevation (STEMI) myocardial infarction involving other coronary artery of inferior wall; I10 Essential (primary) hypertension; I50.9 Heart failure, unspecified; J44.9 Chronic obstructive pulmonary disease, unspecified; Z95.818 Presence of other cardiac implants and grafts; Z86.73 Personal history of transient ischemic attack (TIA), and cerebral infarction without residual deficits; Z11.52 Encounter for screening for COVID-19
CPT/HCPCS: 92977; 93005 ×2; 87040 ×2; 85025; 80048; 36415; 83735; 87205 ×4; 85610; 82947 ×2; 80076; 83605; 84484; 83880; 71045; 82805; 31500; 36680; 51702; 92950 ×3; 99291; 87811; 36600; 94002; 36556; J1644; J3101; J2250; J0171; J0461; J1265; J7030